=== PATIENT | female | born 1945 | race Caucasian/White ===

== ENCOUNTER 2018-01-28 19:27 | Observation (INO) ==
[2018-01-28 19:49] LABS: Basophils # 0.1 K/mm3 (0-0.2); Basophils % 0.4 % (0.1-2.0); Eosinophils # 0.2 K/mm3 (0.0-0.4); Eosinophils % 2.1 % (0.1-12.0); Hematocrit 40.5 % (37.0-47.0); Hemoglobin 13.5 g/dL (12.2-16.2); Lymphocytes # 4.4 K/mm3 (0.7-4.5); Lymphocytes % 39.7 K/mm3 (10-50); Mean Corpuscular HGB Conc 33.3 g/dL (31.8-35.4); Mean Corpuscular Hemoglobin 28.6 pg (27.0-31.2); Mean Corpuscular Volume 86.1 fl (81-99); Mean Platelet Volume 7.6 fl (7.4-10.4); Monocytes % 8.6 % (1.7-9.3); Neutrophils # 5.4 K/mm3 (1.8-7.8); Neutrophils % 49.1 % (37.0-80.0); Platelet Count 406 K/mm3 (142-424); Red Cell Distribution Width 12.3 % (11.5-17.5)
--- NOTE | 2018-01-28 20:07 | Emergency Department Note ---
ED Disposition Condition on Discharge: Good - Critical Care Critical Care Time: No <Cesar Mary - Last Filed: 01/28/18 20:04> <Go Aquino - Last Filed: 01/28/18 23:15> Clinical Impression: Dizziness, nonspecific Chest pain Qualifiers: Chest pain type: unspecified Qualified Code(s): R07.9 - Chest pain, unspecified Disposition: Admitted As Inpatient Attestation: On 01/28/18, the high probability of a clinically significant, sudden or life threatening deterioration of the following system(s) required my full and direct attention, intervention and personal management. The time I documented below is in addition to time spent performing reported procedures but includes the following listed in this critical care notation. Medical Decision Making - Medical Records Medical records reviewed: Yes: I reviewed the patient's medical records. - Cj Inquiry Pt receiving controlled substance: No Cj was queried for this patient: No - Lab Data Result diagrams: 01/28/18 19:30 - ECG Data Tracing #1 Normal Sinus Rhythm: Yes <Cesar Mary - Last Filed: 01/28/18 20:04> - Lab Data Lab results reviewed: Yes: I reviewed the patient's lab results. Result diagrams: 01/28/18 19:30 01/28/18 19:30 - Radiology Data #1 Image(s): Chest Image Reviewed: Yes I reviewed the patient's radiology image Preliminary Findings: Normal/NAD - CT Data CT Scan: Head Time Received: 23:[address] Reviewed: Yes: I have viewed the radiologist's interpretation Preliminary Findings: Normal/NAD - Physician Consults Physician Consulted: joelle Reason -: Admission <Go Aquino - Last Filed: 01/28/18 23:15> Vital Signs: 01/28/18 19:28 01/28/18 19:48 01/28/18 20:27 Temperature 97.6 F Temperature Source Oral Oral Pulse Rate [Right Radial] 111 H 110 H 95 H Respiratory Rate 16 20 14 Blood Pressure [Right Arm] 160/90 145/84 151/83 Blood Pressure Mean [Right Arm] 113 104 105 Blood Pressure Source [Right Arm] Automatic Cuff Automatic Cuff Automatic Cuff Blood Pressure Position [Right Arm] Supine Sitting Supine 02 Sat by Pulse Oximetry 98 100 100 Oxygen Delivery Method Room Air Nasal Cannula Room Air Oxygen Flow Rate (LPM) 2 - Lab Data Lab Results 01/28/18 19:30: WBC 11.0 H, RBC 4.70, Hgb 13.5, Hct 40.5, MCV 86.1, MCH 28.6, MCHC 33.3, RDW 12.3, Plt Count 406, MPV 7.6, Neut % (Auto) 49.1, Lymph % (Auto) 39.7, Yell % (Auto) 8.6, Eos % (Auto) 2.1, Baso % (Auto) 0.4, Neut # (Auto) 5.4 , Lymph # (Auto) 4.4, Yell # (Auto) 1.0, Eos # (Auto) 0.2, Baso # (Auto) 0.1 01/28/18 19:30: Sodium 132 L, Potassium 3.2 L, Chloride 99, Carbon Dioxide 24, Anion Gap 12.2, BUN 21 H, Creatinine 0.91, Estimated Creat Clear 60, Estimated GFR 61, Est GFR ( Amer) 74, Glucose 143 H, Calcium 9.5, Total Bilirubin 0.4, AST 16, ALT 25, Alkaline Phosphatase 103, Total Creatine Kinase 92, CK-MB ( CK-2) 0.5, CK-MB (CK-2) Rel Index 0.5, Troponin I 0.03, Total Protein 7.7, Albumin 4.0, Globulin 3.7 H, Albumin/Globulin Ratio 1.1 01/28/18 21:00: Urine Color Yellow, Urine Appearance Clear, Urine pH 5.5, Ur Specific [place] 1.010, Urine Protein Negative, Urine Glucose (UA) Negative, Urine Ketones Negative, Urine Blood Trace-i, Urine Nitrate Negative, Urine Bilirubin Negative, Urine Urobilinogen 0.2, Ur Leukocyte Esterase Negative, Urine RBC Occasional, Urine WBC 5-10, Ur Squamous Epith Cells 5-10, Urine Bacteria Trace 01/28/18 21:40: Troponin I 0.04 01/28/18 21:40: TSH 1.80, Thyroxine (T4) 9.1 Orders (Tests/Meds): ED MEDICATIONS Generic Name Dose Route Start Last Admin Trade Name Freq PRN Reason Stop Dose Admin Nitroglycerin 0.4 mg 01/28/18 19:32 01/28/18 19:35 Nitrostat 0.4mg Sl Tablet SL 02/27/18 19:31 0.4 mg [id number] PRN Administration Chest Pain Discontinued Medications Generic Name Dose Route Start Last Admin Trade Name Mary Jane PRN Reason Stop Dose Admin Aspirin 243 mg 01/28/18 19:30 01/28/18 19:29 Aspirin 81mg Chewable Tablet PO 01/28/18 19:31 243 mg ONCE ONE Administration Sodium Chloride 1,000 mls @ 999 mls/hr 01/28/18 20:30 01/28/18 20:31 Sod Chlor 0.9% 1000ml Bag IV 01/28/18 21:30 999 mls/hr .Q1H1M MARIA E Administration Ondansetron HCl 4 mg 01/28/18 19:30 01/28/18 19:36 Zofran 4mg/2ml Vial IV 01/28/18 19:31 4 mg ONCE ONE Administration ORDERS Category Date Time Status CT head/brain wo con Stat Cat Scan 01/28/18 20:30 Taken XR chest portable Stat Exams 01/28/18 19:30 Taken ECG Request by /Heather Stat Y 01/28/18 19:30 Ordered - ECG Data Tracing #1 Additional Comments: q wave III (Cesar Mary) Chest Pain HPI - General Mode of Arrival: Ambulatory Source of Information: Patient Limitations: No Limitations Description of Symptoms (Recalled from ER Triage Doc. by RN): Pt reports chest pressure, nausea and dizziness about an hour ago. She states she took an 81mg baby aspirin and a sublingual nitro. - History of Present Illness MD complaint: chest pain indicative of cardiac Onset (ago): hour(s) (2) Duration: now resolved Activity at onset: during rest Pain location: substernal, left chest Severity scale (1-10): 7 Pain radiation: none Relieving factors: nitroglycerin Exacerbating factors: nothing Treatments prior to or on arrival for Cardiac Chest Pain: aspirin - Related Data On Oral Contraceptives: No <Cesar Mary - Last Filed: 01/28/18 20:04> <Go Aquino - Last Filed: 01/28/18 23:15> - General Chief Complaint: Chest Pain Stated Complaint: chest pain Time Seen by Provider: 01/28/18 20:12 - Related Data Home Medications Medication Instructions Recorded Confirmed Aspirin [Aspir 81] 81 mg PO DAILY 01/28/18 01/28/18 Carvedilol [Carvedilol 3.125mg Tab] 3.125 mg PO BID 01/28/18 01/28/18 Clopidogrel Bisulfate [Plavix] 75 mg PO DAILY 01/28/18 01/28/18 Losartan/Hydrochlorothiazide 1 each PO DAILY 01/28/18 01/28/18 [Losartan-Hctz 50-12.5 mg Tab] Omeprazole [Omeprazole 40mg 40 mg PO DAILY 01/28/18 01/28/18 Capsule] Pravastatin Sodium 80 mg PO DAILY 01/28/18 01/28/18 Allergies Allergy/AdvReac Type Severity Reaction Status Date / Time Penicillins [PENICILLINS] Allergy Mild Verified 01/28/18 19:35 promethazine [PROMETHAZINE] Allergy Mild Verified 01/28/18 19:35 pseudoephedrine Allergy Mild Verified 01/28/18 19:35 [From SUDAFED] Sulfa (Sulfonamide Allergy Mild Verified 01/28/18 19:35 Antibiotics) [SULFA (SULFONAMIDE ANTIBIOTICS)] [facility] History I have reviewed the patient's past medical history: Yes Medical History: Reports:: Myocardial Infarction Denies:: Diabetes Mellitus Type 1, Diabetes Mellitus Type 2 - Social History Alcohol Intake: never - Psychiatric History Expresses thoughts of harming self/others: None Suicide Plan Description: No Plan <Cesar Mary - Last Filed: 01/28/18 20:04> ROS Obtained: Yes All systems reviewed & no additional complaints - Cardiovascular Cardiovascular: Reports chest pain - Respiratory Respiratory: Yes dyspnea <Cesar Mary - Last Filed: 01/28/18 20:04> Physical Exam - General General appearance: alert, in no apparent distress - Head Head exam: atraumatic, normocephalic, normal inspection - Eye Eye exam: Present: normal appearance, PERRL, EOMI - ENT ENT exam: Present: normal exam, normal oropharynx, mucous membranes moist, TM's normal bilaterally, normal external ear exam - Neck Neck exam: Present: normal inspection, full ROM, trachea midline. Absent: meningismus, lymphadenopathy - Chest Chest inspection: Present: normal inspection, symmetric chest wall rise. Absent : tenderness - Respiratory Respiratory exam: Present: normal lung sounds bilaterally. Absent: respiratory distress - Cardiovascular Cardiovascular exam: Present: regular rate, normal rhythm. Absent: JVD - Abdominal Exam Abdominal exam: Present: soft, normal bowel sounds. Absent: distention, tenderness, guarding - Extremities Exam Extremities exam: Present: normal inspection, full ROM, normal capillary refill. Absent: calf tenderness - Back Exam Back exam: Present: normal inspection. Absent: tenderness - Neurological Exam Neurological exam: Present: alert, oriented X3 - Psychiatric Psychiatric exam: Present: normal affect, normal mood - Skin Skin exam: Present: warm, dry, intact, normal color - Lymphatic Lymphatic Findings: no adenopathy <Cesar Mary - Last Filed: 01/28/18 20:04>
[2018-01-28 20:16] LABS: Albumin/Globulin Ratio 1.1 (1.1-1.8); Bilirubin,Total 0.4 mg/dL (0.2-1.0); Calcium 9.5 mg/dL (8.5-10.1); Globulin 3.7 gm/dl (1.3-3.2); Potassium 3.2 mmoL/L (3.5-5.1); Total Protein,Serum 7.7 gm/dL (6.4-8.2)
[2018-01-28 20:22] LABS: Anion Gap 12.2 mEq/L (5-15)
[2018-01-28 21:11] LABS: Microscopic, Urine URINE MICROSCOPIC (MICROSCOPIC)
[2018-01-28 21:12] LABS: Appearance,Urine CLEAR (Clear); Bilirubin,Urine Negative (Negative); Blood, Urine TRACE-I (Negative); Color,Urine YELLOW (Yellow); Glucose,Urine (UA) Negative (Negative); Ketones,Urine Negative (Negative); Leukocyte Esterase,Urine Negative (Negative); PH,Urine 5.5 (5.0-8.5); Protein,Urine Negative (Negative); Urobilinogen,Urine 0.2 EU/dl (0.2)
[2018-01-28 21:24] LABS: Bacteria,Urine Trace /lpf; RBC,Urine Occasional #/hpf (0-3)
[2018-01-28 23:06] LABS: T4 (Thyroxine) 9.1 ug/dl (4.7-13.3); Thyroid Stimulating Hormone 1.8 uIU/ml (0.358-3.740)
[2018-01-29 06:45] LABS: Basophils % 0.4 % (0.1-2.0); Eosinophils # 0.1 K/mm3 (0.0-0.4); Eosinophils % 1.8 % (0.1-12.0); Hematocrit 38.8 % (37.0-47.0); Hemoglobin 12.7 g/dL (12.2-16.2); Lymphocytes % 39.1 K/mm3 (10-50); Mean Corpuscular HGB Conc 32.7 g/dL (31.8-35.4); Mean Corpuscular Hemoglobin 28.7 pg (27.0-31.2); Mean Corpuscular Volume 87.6 fl (81-99); Mean Platelet Volume 7.5 fl (7.4-10.4); Monocytes # 0.5 K/mm3 (0.1-1.0); Monocytes % 6.6 % (1.7-9.3); Neutrophils % 52.1 % (37.0-80.0); Platelet Count 326 K/mm3 (142-424); Red Blood Count 4.44 M/mm3 (4.20-5.40); Red Cell Distribution Width 12.3 % (11.5-17.5); White Blood Count 7.7 K/mm3 (4.8-10.8)
[2018-01-29 07:49] LABS: Anion Gap 7.7 mEq/L (5-15); Potassium 3.7 mmoL/L (3.5-5.1)
[2018-01-29 10:03] LABS: Creatine Kinase 78 U/L (26-192)
--- NOTE | 2018-01-29 11:04 | Pharmacy Consult Notes ---
[facility] Pharmacy VTE Monitoring - Patient Demographics Admission date: 01/29/18 Report Date: 01/29/18 Time: 11:04 Allergies/Adverse Reactions: Patient Allergies Penicillins [PENICILLINS] Allergy (Mild, Verified 01/28/18 19:35) promethazine [PROMETHAZINE] Allergy (Mild, Verified 01/28/18 19:35) pseudoephedrine [From SUDAFED] Allergy (Mild, Verified 01/28/18 19:35) Sulfa (Sulfonamide Antibiotics) [SULFA (SULFONAMIDE ANTIBIOTICS)] Allergy (Mild , Verified 01/28/18 19:35) Height: 1.68 m Weight: 79.946 kg Patient Problems: Current Active Problems Chest pain (Acute) Dizziness, nonspecific (Acute) - VTE Risk Labs: VTE Related Lab Results Hgb 12.7 g/dL (12.2-16.2) 01/29/18 06:10 Hct 38.8 % (37.0-47.0) 01/29/18 06:10 Plt Count 326 K/mm3 (142-424) 01/29/18 06:10 BUN 14 mg/dL (7-18) D 01/29/18 06:10 Creatinine 0.71 mg/dL (0.55-1.02) D 01/29/18 06:10 Estimated Creat Clear 66 mL/min (0-300) 01/29/18 06:10 Was VTE Risk Assessment Performed: No VTE Score: 5 VTE Risk Level: Low Risk - VTE Diagnosis Confirmed Comment: BRIANA ANGELA ORDERED
[2018-01-29 11:55] VITALS: BP 143/67
--- NOTE | 2018-01-29 14:06 | H&P/Discharge Summary ---
General - General Admission date: 01/29/18 Discharge date: 01/29/18 *Admission Date: 01/29/18 *Chief complaint: Chest pain *History of present illness: 72 year old female patient of Dr. Davis Foote in [place], [place] presented to [facility] ER last night complaining of chest pain associated with nausea, palpitations and dizziness. She had two separate episodes and the chest pain happened with the second one. She took a NTG and did not get much relief so she came to the ER for further evaluation. She has a history of CAD, her last hear cath was in 2015 and she reportedly had non flow limiting disease at that time. She has been taking medical management ever since. Patient states she has recently been undergoing testing for palpitations and occasional weak spells. She just wore a continuous quality assurance monitor for 30 days, which was reportedly normal. She was also recently started on CoQ10 for myalgias. She also recently saw Dr. Roel Lewis, supervisor particleboard, in [place] and has a f/u visit scheduled with him soon. [facility] History Medical History: Reports:: Cardiomyopathy, Hyperlipidemia, Hypertension, Myocardial Infarction Denies:: Cancer, Diabetes Mellitus Type 1, Diabetes Mellitus Type 2, MRSA Other Medical History: Reports: Arthritis, Cataracts Laterality Cases: Right: Lumpectomy Other Surgeries: Yes: Hysterectomy-Total Amputation: No Fractures: No - *Social History Educational Level: Attended College Smoking Status: Never smoker Alcohol Intake: never Occupational Status: retired Housing: house Household Members: spouse - Psychiatric History Expresses thoughts of harming self/others: None Suicide Plan Description: No Plan *Family Hx:: Cancer, Coronary Artery Disease, Diabetes, Heart Attack, Hyperlipidemia, Hypertension, Stroke, Thyroid Disorder Review of Systems - Constitutional Denies chills - Eyes Denies blurry vision - ENT Denies headache(s), Denies neck pain - *Respiratory Denies cough - *Gastrointestinal Denies abdominal pain - *Genitourinary Denies difficulty urinating - *Musculoskeletal Denies joint pain - Integumentary/Breasts Denies rash - *Neurologic Reports dizziness Exam Vital signs and Labs for Last 24 Hours: Temp Pulse Resp BP Pulse Ox 97.6 F 61 18 143/67 100 01/29/18 11:54 01/29/18 11:54 01/29/18 11:54 01/29/18 11:54 01/29/18 11:54 Laboratory Results - last 24 hr 01/29/18 06:10: Troponin I 0.08 H 01/29/18 06:10: WBC 7.7 D, RBC 4.44, Hgb 12.7, Hct 38.8, MCV 87.6, MCH 28.7, MCHC 32.7, RDW 12.3, Plt Count 326, MPV 7.5, Neut % (Auto) 52.1, Lymph % (Auto) 39.1, [place] % (Auto) 6.6, Eos % (Auto) 1.8, Baso % (Auto) 0.4, Neut # (Auto) 4.0 , Lymph # (Auto) 3.0, [place] # (Auto) 0.5, Eos # (Auto) 0.1, Baso # (Auto) 0.0 01/29/18 06:10: Sodium 141, Potassium 3.7, Chloride 107, Carbon Dioxide 30 D, Anion Gap 7.7, BUN 14 D, Creatinine 0.71 D, Estimated Creat Clear 66, Estimated GFR 81, Est GFR ( Amer) 98 D, Glucose 106 D 01/29/18 09:35: Total Creatine Kinase 78, CK-MB (CK-2) < 0.5, CK-MB (CK-2) Rel Index 0.6, Troponin I 0.10 H 01/29/18 12:55: Troponin I 0.09 H I & O for Last 24 hours: Intake & Output 01/27/18 01/28/18 01/29/18 01/30/18 11:59 11:59 11:59 11:59 Intake Total 360 / 360 Balance 360 / 360 Weight 176 lb 4 oz - Constitutional no acute distress - *Routine HEENT Exam Head: Present: normocephalic, atraumatic ENT: Present: mucous membranes moist - *Routine Neck Exam Present: supple - *Routine Respiratory Exam Present: CTA bilaterally - *Routine Cardiovascular Exam Present: RRR - *Routine Abdominal Exam Present: soft, normoactive bowel sounds. Absent: tenderness - *Routine Extremities Exam Absent: cyanosis, clubbing, edema - *Routine Skin Exam Present: intact. Absent: rash Hospital Course Hospital Course: Patient was admitted with chest pain for serial cardiac enzymes and cardiac monitoring. She was given some IVF due to pre renal azotemia and hypokalemia. Her troponin peaked at 0.10, she was able to ambulate without difficulty, telemetry monitoring was normal, she had no dizziness or chest pain. She was tolerating a regular diet and wanted to go home. She will call with any new symptoms and will keep f/u appointment with Dr. Foote on February 08. She will stop CoQ10 as this may also be causing her dizziness. Results Labs on day of discharge: Labs from last 24 hours 01/29/18 01/29/18 01/29/18 12:55 09:35 06:10 WBC RBC Hgb Hct MCV MCH MCHC RDW Plt Count MPV Neut % (Auto) Lymph % (Auto) [place] % (Auto) Eos % (Auto) Baso % (Auto) Neut # (Auto) Lymph # (Auto) [place] # (Auto) Eos # (Auto) Baso # (Auto) Sodium 141 Potassium 3.7 Chloride 107 Carbon Dioxide 30 D Anion Gap 7.7 BUN 14 D Creatinine 0.71 D Estimated Creat Clear 66 Estimated GFR 81 Est GFR ( Amer) 98 D Glucose 106 D Total Creatine Kinase 78 CK-MB (CK-2) < 0.5 CK-MB (CK-2) Rel Index 0.6 Troponin I 0.09 H 0.10 H 01/29/18 01/29/18 06:10 06:10 WBC 7.7 D RBC 4.44 Hgb 12.7 Hct 38.8 MCV 87.6 MCH 28.7 MCHC 32.7 RDW 12.3 Plt Count 326 MPV 7.5 Neut % (Auto) 52.1 Lymph % (Auto) 39.1 [place] % (Auto) 6.6 Eos % (Auto) 1.8 Baso % (Auto) 0.4 Neut # (Auto) 4.0 Lymph # (Auto) 3.0 [place] # (Auto) 0.5 Eos # (Auto) 0.1 Baso # (Auto) 0.0 Sodium Potassium Chloride Carbon Dioxide Anion Gap BUN Creatinine Estimated Creat Clear Estimated GFR Est GFR ( Amer) Glucose Total Creatine Kinase CK-MB (CK-2) CK-MB (CK-2) Rel Index Troponin I 0.08 H DS: Diagnosis - Discharge Diagnosis (1) Prerenal azotemia Status: Acute (2) Hypokalemia Status: Acute (3) Hyponatremia Status: Acute (4) Chest pain Status: Acute (5) Dizziness, nonspecific Status: Acute Discharge Medications Discharge Medications: Home Medications Medication Instructions Recorded Confirmed Type Aspirin [Aspir 81] 81 mg PO DAILY 01/28/18 01/29/18 History Carvedilol [Carvedilol 3.125mg Tab] 3.125 mg PO BID 01/28/18 01/29/18 History Clopidogrel Bisulfate [Plavix] 75 mg PO DAILY 01/28/18 01/29/18 History Losartan/Hydrochlorothiazide 1 each PO DAILY 01/28/18 01/29/18 History [Losartan-Hctz 50-12.5 mg Tab] Omeprazole [Omeprazole 40mg 40 mg PO DAILY 01/28/18 01/29/18 History Capsule] Pravastatin Sodium 40 mg PO DAILY 01/28/18 01/29/18 History ALPRAZolam [Alprazolam 0.25mg 0.25 mg PO DAILYP PRN 01/29/18 01/29/18 History Tab] Nitroglycerin [Nitrostat 0.4mg SL 0.4 mg SL NEEDED PRN 01/29/18 01/29/18 History Tablet] Ubidecarenone/Vitamin E Mixed 1 each PO DAILY 01/29/18 01/29/18 History [[id number] E 200 mg-20 Unit Sfg] Zolpidem Tartrate [Ambien] 5 mg PO HS PRN 01/29/18 01/29/18 History Disposition Disposition: Home, Self-Care
== END 2018-01-29 15:55 | disposition home or self-care (01) ==
LOC: ER 19:27 → 2ND 19:27
PROVIDERS: ADMIT Family Medicine; ATTEND Family Medicine

== ENCOUNTER 2019-09-05 09:00 | Outpatient (RCR) | payer MEDICARE, SELFPAY | END 2019-09-05 09:05 | disposition home or self-care (01) | LOC: OT 09:00 | PROVIDERS: PCP Family Medicine; Visit Provider Family Medicine | DX: S46.211A Strain of muscle, fascia and tendon of other parts of biceps, right arm, initial encounter (principal) | CPT/HCPCS: 97014; 97110; 97165; G0283 ==

== ENCOUNTER → 2021-01-24 09:32 | Outpatient (CLI) | payer MEDICARE, SELFPAY ==
--- NOTE | 2021-01-24 09:38 | XR_ITS ---
PROCEDURE: XR SHOULDER LT MIN 2V CLINICAL INDICATION: LT SHOULDER PAIN COMPARISON: No exams were available for comparison FINDINGS: No fracture or dislocation. No lytic or blastic change. There is normal mineralization. The joint spaces are well-preserved. No significant degenerative/arthritic changes. No erosive changes evident. Other findings:There is a thin transverse linear density inferior to the glenoid on the scapula possibly due to some overlying spurring. IMPRESSION: No acute findings. Dictated by: Ajay Johnson MD 01/24/2021 12:22 Ajay Johnson MD in [place] 01/24/2021 12:22
== END ==
PROVIDERS: PCP Family Medicine; Visit Provider Family Medicine
DX: M25.512 Pain in left shoulder (principal)
CPT/HCPCS: 73030

== ENCOUNTER 2021-06-09 10:00 | Outpatient (RCR) | payer MEDICARE, SELFPAY | END 2021-06-09 10:05 | disposition home or self-care (01) | LOC: OT 10:00 | PROVIDERS: PCP Family Medicine; Visit Provider Orthopaedic Surgery | DX: M75.122 Complete rotator cuff tear or rupture of left shoulder, not specified as traumatic (principal); M75.42 Impingement syndrome of left shoulder; M75.52 Bursitis of left shoulder | CPT/HCPCS: 97010; 97014; 97035; 97110; 97140; 97164; 97166; 97530; G0283 ==

== ENCOUNTER → 2022-03-17 12:51 | Outpatient (POV) | payer MEDICARE, SELFPAY | PROVIDERS: Visit Provider Dermatology | DX: Z00.00 Encounter for general adult medical examination without abnormal findings (principal) ==

== ENCOUNTER 2022-05-05 10:21 | Emergency (ER) | payer MEDICARE, SELFPAY ==
[2022-05-05 10:40] VITALS: BP 128/78; PULSE 88; RESP 19; TEMP 36.7; O2SAT 96; BMI 27.7
--- NOTE | 2022-05-05 10:58 | HMH.EDUTC ---
[facility] Disposition Clinical Impression: Sinusitis Qualifiers: Sinusitis location: unspecified location Chronicity: unspecified Qualified Code(s): J32.9 - Chronic sinusitis, unspecified Disposition: Home, Self-Care Condition on Discharge: Good Instructions: Sinusitis, DI for Sinusitis, DI for COVID-19 (Suspected or Confirmed ), Preventing the Spread of Coronavirus Discharge Instructions Additional Instructions: *Monitor Temp, Over the counter Motrin or Tylenol as directed/as needed Tylenol every 4 hours and Motrin every 6 hours (as long as your family doctor has told you that you can take it) for fever or pain. and straight to ER if unable to lower temp less than 101.0 after medication given *Warm salt water gargles may help to soothe the throat *Throat Lozenges *Warm fluids like tea with honey may help to soothe the throat *Sleep elevated *Humidifier/Vaporizer Take medication as prescribed Follow up IMMEDIATELY for new or worsening symptoms or no Noticeable improvement over the next 48-72 hours. 911 for difficulty breathing or swallowing You were tested for today for COVID19 your test result should be back in the next 24-48 hours, you may check your results on the [facility] Make sure to take your Vitamins Vit. C Vit D and Zinc if you can take them Prescriptions: methylPREDNISolone [Medrol 4mg tab] 4 mg PO DIRECTED #21 tab Transmission Status: Pending to [facility] Azithromycin [Z-Kennedy 250mg Tab] 250 mg PO DIRECTED #6 tab Transmission Status: Pending to [facility] Referrals: Davis Foote [Primary Care Provider] - As needed Time of Disposition: 11:12 Medical Decision Making - Cj Inquiry Pt receiving controlled substance: No Cj was queried for this patient: No Vital Signs: 05/05/22 10:40 Temperature 98.1 F Temperature Source Oral Pulse Rate [Right Brachial] 88 Respiratory Rate 19 Blood Pressure [Right Arm] 128/78 Blood Pressure Mean [Right Arm] 94 Blood Pressure Source [Right Arm] Automatic Cuff Blood Pressure Position [Right Arm] Sitting 02 Sat by Pulse Oximetry 96 Oxygen Delivery Method Room Air Orders (Tests/Meds): ORDERS Category Date Time Status Covid-19 Nasal PCR ([facility]) Routine Lab 05/05/22 10:45 Received Medical Decision Narrative: Patient states that she has taken prednisone and azithromycin in the past without complications or reactions [facility] HPI - General Stated complaint: cough, congestion, sore throat, SOA Time Seen by Provider: 05/05/22 10:58 Mode of Arrival: Ambulatory Source of Information: Patient Limitations: No Limitations Description of Symptoms (Recalled from Triage Doc. by RN): PATIENT C/O COUGH, SOA, HEADACHE, AND LEG ACHES. REQUESTING COVID TEST HEENT Symptoms (Recalled from RN notes): Yes Resp Symptoms (Recalled from RN notes): Yes Skin Symptoms (Recalled from RN notes): No MS Symptoms (Recalled from RN notes): No Functional Status (Recalled from RN notes): WNL - History of Present Illness Provider Complaint: Patient states that she has been having scratchy throat, sinus congestion and pressure with feeling like it is running down the back of her throat State that feels like it is trying to move into her chest State that she has Asthma and last night she felt a little SOA so she used her inhaler and it did help States that she took an at home COVID test and it was negative but wanted to get examined and tested - Related Data Home Medications Medication Instructions Recorded Confirmed Aspirin [Aspir 81] 81 mg PO DAILY 01/28/18 01/29/18 Clopidogrel Bisulfate [Clopidogrel 75 mg PO DAILY 01/28/18 01/29/18 75mg Tab] Losartan/Hydrochlorothiazide 1 each PO DAILY 01/28/18 01/29/18 [Losartan-Hctz 50-12.5 mg Tab] Omeprazole [Omeprazole 40mg 40 mg PO DAILY 01/28/18 01/29/18 Capsule] Pravastatin Sodium 40 mg PO DAILY 01/28/18 01/29/18 carvediloL [Carvedilol 3.125mg Tab] 3.125 mg PO BID
[2022-05-05 11:17] VITALS: BP 128/78; PULSE 88; RESP 19; TEMP 36.7; O2SAT 96
== END 2022-05-05 11:21 | disposition home or self-care (01) ==
PROVIDERS: Emergency Provider Nurse Practitioner; PCP Family Medicine
DX: J32.9 Chronic sinusitis, unspecified (principal); U07.1 COVID-19; R05.9 Cough, unspecified; R09.89 Other specified symptoms and signs involving the circulatory and respiratory systems; J02.9 Acute pharyngitis, unspecified; R06.02 Shortness of breath
CPT/HCPCS: 99212; C9803; G0463; U0003; U0005

== ENCOUNTER 2022-05-07 10:08 | Emergency (ER) | payer MEDICARE, SELFPAY ==
[2022-05-07 10:08] VITALS: BP 146/79; PULSE 75; RESP 20; TEMP 36.4; O2SAT 100; BMI 278.0
--- NOTE | 2022-05-07 10:32 | XR_ITS ---
FINAL REPORT CLINICAL HISTORY: bharath, covid + COMPARISON: January 28, 2018 FINDINGS: The heart size is normal. A loop recorder device is present. The mediastinum is normal. There is no focal infiltrate or edema. There are no pleural effusions. There is no pneumothorax. There is a chronic calcification adjacent to the right humeral head that may represent calcific tendinitis. IMPRESSION: No acute cardiopulmonary process Reviewed, Interpreted and Dictated by Jung Cordova III, MD Transcribed by Lenny Parks Authenticated and [facility]
--- NOTE | 2022-05-07 10:42 | PC.NURSE ---
rad at [facility] for portable xray
--- NOTE | 2022-05-07 11:07 | HMH.EDGENADL ---
ED Disposition Clinical Impression: COVID-19 virus infection Disposition: Home, Self-Care Condition on Discharge: Good Instructions: DI for COVID-19 (Suspected or Confirmed ) Additional Instructions: Paxlovid as prescribed. Tessalon as needed for cough. Zofran as needed for nausea or vomiting. Rest, drink plenty of fluids. Tylenol or Ibuprofen for fever and/or aches and pains. Monitor your symptoms. IF YOU HAVE AN EMERGENCY WARNING SIGN (INCLUDING TROUBLE BREATHING), SEEK EMERGENCY MEDICAL CARE IMMEDIATELY. COVID-19 Isolation: People with COVID-19 should isolate for 5 days. Then if they are asymptomatic (no symptoms) or their symptoms are resolving (without fever for 24 hours), follow that by 5 days of wearing a mask when around others to minimize the risk of infecting people you encounter. If you test positive for COVID-19 and never develop symptoms, day 0 is the day of your positive viral test (based on the date you were tested) and day 1 is the first full day after your positive test. If you develop symptoms after testing positive, your 5-day isolation period must start over. Day 0 is your first day of symptoms. Day 1 is the first full day after your symptoms developed. What to do: Stay in a separate room from other household members, if possible. Use a separate bathroom, if possible. Avoid contact with other members of the household and pets. Don?t share personal household items, like cups, towels, and utensils. Wear a mask when around other people if able. Prescriptions: Benzonatate [Benzonatate 100mg cap] 100 mg PO TIDP PRN #15 cap PRN Reason: Cough Transmission Status: Pending to [facility] Nirmatrelvir/Ritonavir [Paxlovid 150-100 mg Pack (Eua)] 1 each PO BID #1 tab Transmission Status: Pending to [facility] Ondansetron [Zofran 4mg ODT] 4 mg PO TIDP PRN #10 tab PRN Reason: Nausea And Vomiting Transmission Status: Pending to [facility] Referrals: Davis Foote [Primary Care Provider] - - Critical Care Critical Care Time: No Attestation: On 05/07/22, the high probability of a clinically significant, sudden or life threatening deterioration of the following system(s) required my full and direct attention, intervention and personal management. The time I documented below is in addition to time spent performing reported procedures but includes the following listed in this critical care notation. Medical Decision Making - Cj Inquiry Pt receiving controlled substance: No Vital Signs: 05/07/22 10:08 05/07/22 11:34 05/07/22 12:00 Temperature 97.6 F Temperature Source Oral Pulse Rate 58 L 55 L Pulse Rate [Left Radial] 75 Respiratory Rate 20 18 16 Blood Pressure 132/63 159/68 H Blood Pressure [Right Arm] 146/79 H Blood Pressure Mean 101 Blood Pressure Mean [Right Arm] 101 Blood Pressure Source [Right Arm] Automatic Cuff Blood Pressure Position [Right Arm] Sitting 02 Sat by Pulse Oximetry 100 98 98 Oxygen Delivery Method Room Air 05/07/22 12:30 05/07/22 13:00 Temperature Temperature Source Pulse Rate 58 L 61 Pulse Rate [Left Radial] Respiratory Rate 17 17 Blood Pressure 154/62 H 159/66 H Blood Pressure [Right Arm] Blood Pressure Mean Blood Pressure Mean [Right Arm] Blood Pressure Source [Right Arm] Blood Pressure Position [Right Arm] 02 Sat by Pulse Oximetry 98 98 Oxygen Delivery Method - Lab Data Lab Results 05/07/22 11:25: WBC 13.5 H, RBC 4.96, Hgb 14.7, Hct 44.4, MCV 89.5, MCH 29.7, MCHC 33.1, RDW 13.4, Plt Count 463 H, MPV 7.9, Neut % (Auto) 74.3, Lymph % (Auto) 13.3, [place] % (Auto) 10.9 H, Eos % (Auto) 0.3, Baso % (Auto) 1.2, Neut # (Auto) 10.0 H, Lymph # (Auto) 1.8, [place] # (Auto) 1.5 H, Eos # (Auto) 0.0, Baso # (Auto) 0.2 05/07/22 11:25: Sodium 135 L, Potassium 3.8, Chloride 97 L, Carbon Dioxide 30, Anion Gap 11.8, BUN 15, Creatinine 0.80, Estimated Creat Clear 46, Es
--- NOTE | 2022-05-07 11:28 | ECG_ITS ---
APPROVED REPORT Exam: Resting ECG HR:59 bpm ECG Measurements Heart Rate 59 AXES HI 149 P 33 QRSd 88 QRS -4 QT 400 T 17 QTc 400 Conclusion SINUS BRADYCARDIA MINIMAL VOLTAGE CRITERIA FOR LVH, Poor R wave progression ABNORMAL ECG UNCONFIRMED REPORT Electronically signed by : Channing Christian MD 05/07/2022 17:38:45
[2022-05-07 11:34] VITALS: BP 132/63; PULSE 58; RESP 18; O2SAT 98
[2022-05-07 11:35] LABS: Basophils # 0.2 K/mm3 (0-0.2); Basophils % 1.2 % (0.1-2.0); Eosinophils % 0.3 % (0.1-12.0); Hematocrit 44.4 % (37.0-47.0); Hemoglobin 14.7 g/dL (12.2-16.2); Lymphocytes # 1.8 K/mm3 (0.7-4.5); Lymphocytes % 13.3 % (10-50); Mean Corpuscular HGB Conc 33.1 g/dL (31.8-35.4); Mean Corpuscular Hemoglobin 29.7 pg (27.0-31.2); Mean Corpuscular Volume 89.5 fl (81-99); Mean Platelet Volume 7.9 fl (7.4-10.4); Monocytes # 1.5 K/mm3 (0.1-1.0); Monocytes % 10.9 % (1.7-9.3); Neutrophils % 74.3 % (37.0-80.0); Platelet Count 463 K/mm3 (142-424); Red Blood Count 4.96 M/mm3 (4.20-5.40); Red Cell Distribution Width 13.4 % (11.5-17.5); White Blood Count 13.5 K/mm3 (4.8-10.8)
[2022-05-07 11:37] LABS: Chloride 97 mmol/L (98-107); Potassium 3.8 mmoL/L (3.5-5.1); Sodium 135 mmol/L (136-145)
[2022-05-07 11:39] LABS: Alanine Aminotransferase 29 U/L (12-78); Aspartate Amino Transferase 28 U/L (14-36); Blood Urea Nitrogen 15 mg/dl (7-17); Creatinine Clearance Estimated 46 mL/min (50-200); Estimated Glomerular Filt Rate 70 ml/min (>60); GFR (African American) 85 ML/MIN (>60)
[2022-05-07 11:40] LABS: Albumin Level 4.6 g/dl (3.5-5.0); Albumin/Globulin Ratio 1.4 (1.1-1.8); Alkaline Phosphatase 89 U/L (38-126); Anion Gap 11.8 mEq/L (5-15); Bilirubin,Total 0.7 mg/dl (0.2-1.3); Calcium 10.3 mg/dl (8.4-10.2); Carbon Dioxide 30 mmol/L (22.0-30.0); Globulin 3.3 g/dL (1.3-3.2); Glucose 119 mg/dl (74-100); Total Protein,Serum 7.9 g/dl (6.3-8.2)
[2022-05-07 11:59] LABS: Troponin I < 0.01 ng/ml (0.00-0.034)
[2022-05-07 12:00] VITALS: BP 159/68; PULSE 55; RESP 16; O2SAT 98
[2022-05-07 12:30] VITALS: BP 154/62; PULSE 58; RESP 17; O2SAT 98
[2022-05-07 13:00] VITALS: BP 159/66; PULSE 61; RESP 17; O2SAT 98
[2022-05-07 14:29] VITALS: BP 142/70; PULSE 62; RESP 18; TEMP 36.4; O2SAT 99
== END 2022-05-07 14:34 | disposition home or self-care (01) ==
PROVIDERS: Emergency Provider Emergency Medicine; PCP Family Medicine
DX: U07.1 COVID-19 (principal); R07.9 Chest pain, unspecified; M54.9 Dorsalgia, unspecified; Z88.0 Allergy status to penicillin; Z88.2 Allergy status to sulfonamides; Z88.8 Allergy status to other drugs, medicaments and biological substances; I42.9 Cardiomyopathy, unspecified; I11.0 Hypertensive heart disease with heart failure; I50.9 Heart failure, unspecified; I25.2 Old myocardial infarction; E78.5 Hyperlipidemia, unspecified; M19.90 Unspecified osteoarthritis, unspecified site
CPT/HCPCS: 71045; 80053; 84484; 85025; 93005; 96360; 99284

== ENCOUNTER → 2023-01-13 10:31 | Outpatient (CLI) | payer MEDICARE, SELFPAY ==
--- NOTE | 2023-01-13 10:35 | XR_ITS ---
FINAL REPORT CLINICAL HISTORY: knee pain FINDINGS: Two views of the left knee were obtained. There is no evidence of fracture or dislocation. The bony alignment is normal. There are mild degenerative changes. There is no evidence of joint effusion. No localized soft tissue abnormality is seen. Meniscal calcifications are noted. IMPRESSION: Mild degenerative changes with no acute abnormality identified. Reviewed, Interpreted and Dictated by Jung Cordova III, MD Transcribed by Sanjuana Ocasio Authenticated and [facility]
== END ==
PROVIDERS: PCP Family Medicine; Visit Provider Family Medicine
DX: M25.562 Pain in left knee (principal)
CPT/HCPCS: 73560

== ENCOUNTER 2023-04-05 08:00 | Outpatient (RCR) | payer MEDICARE, SELFPAY ==
--- NOTE | 2023-02-15 09:27 | HMH.PTOPEV ---
PT Outpatient Evaluation Rehab PT Outpatient Evaluation Start: 02/15/23 08:24 Freq: Status: Active Protocol: Document 02/15/23 08:24 DORIS (Rec: 02/15/23 09:27 DORIS [id number]) E-signed By Norberto Carmona, PT Outpatient Therapy Subjective History Subjective History Pt reports slipping out of truck and landing on left foot abduptly with 'jamming' moment through LLE upon impact . Pt reports immediate onset left knee pain (injury on ) and swelling following incident, however, reports improvement of s/s after left knee injection ~3 weeks ago. Pt reports intermittent left knee buckling, and pain since injection, 'but better overall '. PMH: chronic Right knee pain Chief Complaint Pain,Stiff,Swelling,Gives out/ Unstable Symptom Type Ache,Sharp,Dull,Burning Symptoms Relieved By Rest/Positioning,Ice, Prescription Meds,Elevation Symptoms Aggravated By Standing,Walking Prior Functional Limitations Stairs Current Functional Limitations Standing,Walking,Stairs Symptom Description Constant but Variable Level of pain today (0-10) 3 Pain scale - at its best (0-10) 2 Pain scale - at its worst (0-10) 6 Hip/Knee Eval Gait Observation General Gait Pattern Observation Antalgic Gait Palpation Tenderness left Knee Palpation Finding Tenderness Knee Palpation Overall Comment 3/4 medial and lateral jt line MMT right Hip Flexion Strength Grade 4- Good- Hip Abduction Strength Grade 4 Good Hip Adduction Strength Grade 4 Good Hip Extension Strength Grade 4 Good Hip External Rotation Strength Grade 4 Good Hip Internal Rotation Strength Grade 4 Good Knee Extension Strength Grade 4 Good Knee Flexion Strength Grade 4 Good left Hip Flexion Strength Grade 4- Good- Hip Abduction Strength Grade 4- Good- Hip Adduction Strength Grade 4- Good- Hip Extension Strength Grade 4- Good- Hip External Rotation Strength Grade 4 Good Hip Internal Rotation Strength Grade 4- Good- Knee Extension Strength Grade 3+ Fair+ Knee Flexion Strength Grade 4- Good- ROM right Knee Flexion Active Range of Motion ( 0-135 degrees) left Knee Flexion Active Range of Motion ( 0-125 degrees) Knee ROM Limitations Soft
== END 2023-04-05 08:05 | disposition home or self-care (01) ==
LOC: PT 08:00
PROVIDERS: PCP Family Medicine; Visit Provider Orthopaedic Surgery
DX: M25.562 Pain in left knee (principal)
CPT/HCPCS: 97010; 97014; 97110; 97163; 97164; 97530; G0283

== ENCOUNTER → 2023-08-09 14:00 | Outpatient (CLI) | payer MEDICARE, SELFPAY | PROVIDERS: PCP Nurse Practitioner Family; Visit Provider Nurse Practitioner Family | DX: R05.9 Cough, unspecified (principal); U07.1 COVID-19 | CPT/HCPCS: 87635 ==

== ENCOUNTER 2024-03-16 08:58 | Outpatient (CLI) | payer MEDICARE, SELFPAY ==
[2024-03-15 16:36] LABS: Basophils # 0.1 K/mm3 (0-0.2); Basophils % 1.4 % (0.1-2.0); Eosinophils # 0.3 K/mm3 (0.0-0.4); Eosinophils % 4.6 % (0.1-12.0); Hematocrit 41.3 % (37.0-47.0); Hemoglobin 13.5 g/dL (12.2-16.2); Lymphocytes # 2.5 K/mm3 (0.7-4.5); Mean Corpuscular HGB Conc 32.7 g/dL (31.8-35.4); Mean Corpuscular Hemoglobin 30.2 pg (27.0-31.2); Mean Corpuscular Volume 92.6 fl (81-99); Mean Platelet Volume 8.5 fl (7.4-10.4); Monocytes # 0.5 K/mm3 (0.1-1.0); Monocytes % 8.1 % (1.7-9.3); Neutrophils # 2.9 K/mm3 (1.8-7.8); Neutrophils % 46.8 % (37.0-80.0); Platelet Count 398 K/mm3 (142-424); Red Blood Count 4.46 M/mm3 (4.20-5.40); Red Cell Distribution Width 13.8 % (11.5-17.5); White Blood Count 6.3 K/mm3 (4.8-10.8)
[2024-03-15 16:54] LABS: Alanine Aminotransferase 23 U/L (12-78); Albumin Level 4.2 g/dl (3.5-5.0); Albumin/Globulin Ratio 1.6 (1.1-1.8); Alkaline Phosphatase 78 U/L (38-126); Anion Gap 14.2 mEq/L (5-15); Aspartate Amino Transferase 29 U/L (14-36); Bilirubin,Total 0.8 mg/dl (0.2-1.3); Blood Urea Nitrogen 17 mg/dl (7-17); Calcium 10.2 mg/dl (8.4-10.2); Carbon Dioxide 29 mmol/L (22.0-30.0); Chloride 99 mmol/L (98-107); Cholesterol 218 mg/dl (140-200); Estimated Glomerular Filt Rate 81 ml/min (>60); GFR (African American) 98 ML/MIN (>60); Globulin 2.6 g/dL (1.3-3.2); Glucose 100 mg/dl (74-100); HDL Cholesterol 54 mg/dl (40-60); Potassium 4.2 mmoL/L (3.5-5.1); Sodium 138 mmol/L (136-145); Total Protein,Serum 6.8 g/dl (6.3-8.2); Triglycerides 146 mg/dl (30-150); VLDL Cholesterol 29 mg/dL (0-40)
[2024-03-15 17:05] LABS: Direct LDL Cholesterol 116.53 mg/dL (100-129)
[2024-03-15 17:25] LABS: Thyroid Stimulating Hormone 1.18 uIU/mL (0.465-4.68)
[2024-03-15 18:18] LABS: Hemoglobin A1C 5.5 % (4.0-6.0)
== END 2024-03-16 23:59 | disposition home or self-care (01) ==
LOC: LAB.DROPOF 09:03
PROVIDERS: PCP Family Medicine; Visit Provider Family Medicine
DX: I10 Essential (primary) hypertension (principal); E78.5 Hyperlipidemia, unspecified; R73.09 Other abnormal glucose; Z87.891 Personal history of nicotine dependence
CPT/HCPCS: 80053; 80061; 83036; 84443; 85025

== ENCOUNTER 2024-06-08 09:26 | Outpatient (CLI) | payer MEDICARE, SELFPAY ==
[2024-06-08 17:01] LABS: Basophils # 0.1 K/mm3 (0-0.2); Basophils % 1.1 % (0.1-2.0); Eosinophils # 0.2 K/mm3 (0.0-0.4); Eosinophils % 3.8 % (0.1-12.0); Hematocrit 40.6 % (37.0-47.0); Hemoglobin 13.6 g/dL (12.2-16.2); Lymphocytes # 2.3 K/mm3 (0.7-4.5); Lymphocytes % 39.8 % (10-50); Mean Corpuscular HGB Conc 33.5 g/dL (31.8-35.4); Mean Corpuscular Hemoglobin 30.4 pg (27.0-31.2); Mean Corpuscular Volume 90.8 fl (81-99); Monocytes # 0.6 K/mm3 (0.1-1.0); Monocytes % 10.6 % (1.7-9.3); Neutrophils # 2.6 K/mm3 (1.8-7.8); Neutrophils % 44.8 % (37.0-80.0); Platelet Count 398 K/mm3 (142-424); Red Blood Count 4.47 M/mm3 (4.20-5.40); Red Cell Distribution Width 13.9 % (11.5-17.5); White Blood Count 5.8 K/mm3 (4.8-10.8)
[2024-06-08 17:33] LABS: Alanine Aminotransferase 21 U/L (12-78); Albumin/Globulin Ratio 1.5 (1.1-1.8); Alkaline Phosphatase 76 U/L (38-126); Anion Gap 10.8 mEq/L (5-15); Aspartate Amino Transferase 26 U/L (14-36); Bilirubin,Total 0.7 mg/dl (0.2-1.3); Blood Urea Nitrogen 17 mg/dl (7-17); Calcium 9.9 mg/dl (8.4-10.2); Carbon Dioxide 29 mmol/L (22.0-30.0); Chloride 102 mmol/L (98-107); Chol/HDL Ratio 4.1 (1-3.5); Cholesterol 216 mg/dl (140-200); Estimated Glomerular Filt Rate 81 ml/min (>60); GFR (African American) 98 ML/MIN (>60); Globulin 2.7 g/dL (1.3-3.2); Glucose 107 mg/dl (74-100); HDL Cholesterol 53 mg/dl (40-60); Potassium 4.8 mmoL/L (3.5-5.1); Sodium 137 mmol/L (136-145); Total Protein,Serum 6.7 g/dl (6.3-8.2); Triglycerides 139 mg/dl (30-150); VLDL Cholesterol 28 mg/dL (0-40)
[2024-06-08 17:44] LABS: Direct LDL Cholesterol 115.62 mg/dL (100-129)
[2024-06-08 18:05] LABS: Thyroid Stimulating Hormone 1.81 uIU/mL (0.465-4.68)
== END 2024-06-08 23:59 | disposition home or self-care (01) ==
LOC: LAB.DROPOF 06-09 09:26
PROVIDERS: PCP Family Medicine; Visit Provider Family Medicine
DX: I10 Essential (primary) hypertension (principal); E78.5 Hyperlipidemia, unspecified
CPT/HCPCS: 80050; 80053; 80061; 84443; 85025

== ENCOUNTER 2024-09-29 21:18 | Inpatient (IN) | payer MEDICARE, SELFPAY ==
--- NOTE | 2024-09-29 21:15 | ECG_ITS ---
APPROVED REPORT Exam: Resting ECG HR:134 bpm ECG Measurements Heart Rate 134 AXES VT 166 P -15 QRSd 85 QRS 2 QT 290 T 29 QTc 369 Conclusion SINUS TACHYCARDIA LOW QRS VOLTAGE IN PRECORDIAL LEADS [QRS DEFLECTION < 1.0 mV IN CHEST LEADS] ST DEVIATION AND MODERATE T-WAVE ABNORMALITY, CONSIDER ANTERIOR ISCHEMIA [-0.1+ mV T-WAVE IN V3/V4] ABNORMAL ECG Electronically signed by : DAWSON POWERS, 09/30/2024 17:26:43
[2024-09-29 21:19] VITALS: BP 189/103; PULSE 110; RESP 18; TEMP 36.8; O2SAT 99; BMI 25.4
[2024-09-29 21:30] VITALS: BP 189/103; RESP 11
--- NOTE | 2024-09-29 21:43 | XR_ITS ---
PROCEDURE INFORMATION: Exam: XR Chest Exam date and time: 09/29/2024 10:00 PM Age: 79 years old Clinical indication: Dyspnea TECHNIQUE: Imaging protocol: Radiologic exam of the chest. Views: 1 view. COMPARISON: CR XR CHEST PORTABLE 05/07/2022 10:41 AM FINDINGS: Lungs: Unremarkable. No consolidation. Pleural spaces: Unremarkable. No pleural effusion. No pneumothorax. Heart/Mediastinum: Unremarkable. No cardiomegaly. Loop recorder over the left side of the heart redemonstrated. Bones/joints: Unremarkable. IMPRESSION: Stable chest x-ray with no acute disease.
--- NOTE | 2024-09-29 21:45 | ED_ITS ---
Discharge Plan Disposition Patient Disposition: Admitted Prescriptions Prescriptions: No Action isosorbide mononitrate 30 mg tablet extended release 24 hr 30 mg PO BID 90 Days Qty: 180 1RF losartan 50 mg tablet 25 mg PO DAILY 90 Days Qty: 45 1RF albuterol sulfate 90 mcg/actuation HFA aerosol inhaler 2 puff inhalation Q6H PRN (Reason: shortness of breath or wheezing) Qty: 8.5 3RF doxycycline hyclate 100 mg tablet 100 mg PO BID Qty: 20 0RF alprazolam 0.25 mg tablet 0.25 mg PO DAILYP PRN (Reason: Anxiety) Qty: 30 2RF omeprazole 40 mg capsule,delayed release(DR/EC) 40 mg PO DAILY Qty: 90 3RF hydrochlorothiazide 12.5 mg capsule 12.5 mg PO DAILY 90 Days Qty: 90 1RF carvedilol 3.125 mg tablet 3.125 mg PO BID 90 Days Qty: 180 1RF zolpidem [Ambien] 5 mg tablet 5 mg PO HS PRN (Reason: Sleep) Qty: 30 2RF fluticasone propionate [Flonase Allergy Relief] 50 mcg/actuation spray,suspension 1 spray intranasal DAILY PRN (Reason: nasal congestion) Qty: 16 5RF Rx Instructions: administer into each nostril prednisone 50 mg tablet 50 mg PO DAILY Qty: 7 0RF aspirin [Aspir-81] 81 MG tablet,delayed release (DR/EC) 81 mg PO DAILY nitroglycerin [Nitrostat] 0.4 MG tablet, sublingual 0.4 mg sublingual NEEDED PRN (Reason: Chest Pain) Referrals Follow up/Referrals: Franko Juarez MD [Primary Care Provider] - See instructions Devon Montoya MD [Staff Physician] - See instructions Clinical Impressions Clinical Impression: Tachycardia, Heart palpitations Chest pain Qualifiers: Chest pain type: unspecified Qualified Code(s): R07.9 - Chest pain, unspecified Print Language Print Language: Hungarian Discharge ED Provider: Mika Urbano General Adult HPI <Mika Urbano MD - Last Filed: 09/29/24 23:21> General Chief complaint: Chest Pain Stated complaint: chest pain Time Seen by Provider: 09/29/24 21:30 History of Present Illness HPI narrative: Patient is a 79-year-old presenting today with heart palpitations. Intermittently ongoing over the last day with episodes of chest pain most lasting 5 minutes currently she is without those symptoms. States that she was symptomatic all the way up until coming to the emergency department and then began having symptoms after her EKG that lasted a short period of time she is currently asymptomatic. States her heart rate has been getting up into the 130s and 140s. Has a history of Takotsubo's cardiomyopathy which occurred about 10 years ago secondary to a stressful event at a family get together. They state that her heart function has completely resolved since that time but she has also had another IA she denies any history of implantable cardiac device or stents etc. She is followed by Dr. Diego at [facility]. She had aspirin earlier today. Denies any fevers or chills or any other symptoms. Related Data Home Medications ?Medication ?Instructions ?Recorded ?Confirmed aspirin 81 mg tablet,delayed 81 mg PO DAILY [facility] 01/28/18 09/19/24 release (Aspir-) nitroglycerin 0.4 mg sublingual 0.4 mg sublingual NEEDED PRN 01/29/18 09/19/24 tablet (Nitrostat) Chest Pain Previous Rx's ?Medication ?Instructions ?Recorded alprazolam 0.25 mg tablet 0.25 mg PO DAILYP PRN Anxiety #30 03/24/23 tabs isosorbide mononitrate 30 mg 30 mg PO BID hypertension 90 days 09/15/23 tablet,extended release 24 hr #180 tabs losartan 50 mg tablet 25 mg (1/2 x 50 mg) PO DAILY HTN 09/15/23 90 days #45 tabs omeprazole 40 mg capsule,delayed 40 mg PO DAILY GERD #90 caps 11/23/23 release hydrochlorothiazide 12.5 mg capsule 12.5 mg PO DAILY hypertension 90 04/20/24 days #90 caps albuterol sulfate 90 mcg/actuation 2 puff inhalation Q6H PRN 05/10/24 aerosol inhaler shortness of breath or wheezing #8.5 grams carvedilol 3.125 mg tablet 3.125 mg PO BID bp 90 days #180 07/20/24 tabs fluticasone propionate 50 1 spray intranasal DAILY PRN nasal 08/22/24 mcg/actuation nasal congestion #16 grams spray,suspension (Flonase Allergy Relief) zolpidem 5 mg tablet (Ambien) 5 mg PO HS PRN Sleep #30 tabs 08/22/24 doxycycline hyclate 100 mg tablet 100 mg PO BID #20 tabs 09/19/24 prednisone 50 mg tablet 50 mg PO DAILY #7 tabs 09/25/24 Allergies Allergy/AdvReac Type Severity Reaction Status Date / Time Penicillins (PENICILLINS) Allergy Mild Verified 09/19/24 13:57 promethazine (PROMETHAZINE) Allergy Mild Verified 09/19/24 13:57 pseudoephedrine (From Allergy Mild Verified 09/19/24 13:57 SUDAFED) Sulfa (Sulfonamide Allergy Mild Verified 09/19/24 13:57 Antibiotics) (SULFA (SULFONAMIDE ANTIBIOTICS)) diclofenac (From Voltaren) Allergy Rash Verified 09/19/24 13:57 azithromycin AdvReac Intermediate Gastrointestinal Verified 09/19/24 13:57 Upset cephalexin AdvReac Intermediate Gastrointestinal Verified 09/19/24 13:57 Upset statins AdvReac Severe muscle Uncoded 09/19/24 13:57 cramps PFS <Mika Urbano MD - Last Filed: 09/29/24 23:21> [facility] Disclaimer: The information contained in this section may have been updated after the patient was seen, as this information can be updated by other users. Medical History Asthma Insomnia Anxiety Hypertension Tachycardia Cardiomyopathy Surgical History History of colonoscopy History of hysterectomy H/O lumpectomy Family History Father Coronary artery disease Heart attack Hypertension Grandfather Coronary artery disease Heart attack Grandmother Diabetes Stroke Thyroid disorder Mother Stroke Sister Cancer Social History Smoking Status: Never smoker years smoked: 4 smoking status stop date: 11/01/1969 alcohol intake: never current occupational status: retired household members: spouse housing: house Other Medical History Have you received the Flu Vaccine for this season: Yes Have you received the Pneumonia Vaccine: Yes <Mika Urbano MD - Last Filed: 09/29/24 23:21> ROS Obtained: Yes All systems reviewed & no additional complaints except as documented Physical Exam <Mika Urbano MD - Last Filed: 09/29/24 23:21> General General appearance: alert Respiratory Respiratory exam: Present normal lung sounds bilaterally; Absent respiratory distress Cardiovascular Cardiovascular exam: Present tachycardia Neurological Exam Neurological exam: Present alert and oriented X3 Medical Decision Making <Mika Urbano MD - Last Filed: 09/29/24 23:21> Medical Records Screening: Per USPSTF and CDC recommendations, given the prevalence of disease in our region, it is our hospital?s policy to screen for HIV and viral Hepatitis for all patients aged 18 and over and those with ongoing risk factors. Cj Inquiry Pt receiving controlled substance: No Vital Signs: 09/29/24 21:19 09/29/24 21:30 09/29/24 22:09 Temperature 98.2 F Temperature Source Tympanic Pulse Rate 100 H Pulse Rate [Left] 110 H Respiratory Rate 18 11 L Blood Pressure 189/103 H Blood Pressure [Right Arm] 189/103 H Blood Pressure Mean [Right Arm] 131 02 Sat by Pulse Oximetry 99 Oxygen Delivery Method Room Air Lab Data Lab results reviewed: Yes I reviewed the patient's lab results. Lab Results 09/29/24 21:50: WBC 14.2 H, RBC 4.68, Hgb 13.9, Hct 40.6, MCV 86.8, MCH 29.6, MCHC 34.1, RDW 13.7, Plt Count 385, MPV 7.6, Neut % (Auto) 83.1 H, Lymph % (Auto) 10.7, [place] % (Auto) 5.2, Eos % (Auto) 0.1, Baso % (Auto) 1.0, Neut # (Auto) 11.8 H, Lymph # (Auto) 1.5, [place] # (Auto) 0.7, Eos # (Auto) 0.0, Baso # (Auto) 0.2, D-Dimer 0.47, Sodium 138, Potassium 3.7, Chloride 103, Carbon Dioxide 24, Anion Gap 14.7, BUN 25 H, Creatinine 0.80, Estimated Creat Clear 53, Estimated GFR 70, Est GFR ( Amer) 84, Glucose 230 H, Calcium 9.5, Magnesium 1.8, Total Bilirubin 0.5, AST 36, ALT 33, Alkaline Phosphatase 77, Troponin I < 0.01, NT-Pro-B Natriuret Pep 208, Total Protein 6.7, Albumin 4.3, Globulin 2.4, Albumin/Globulin Ratio 1.8, TSH 0.49, HIV 1&2 Antibody Rapid Nonreactive 09/29/24 21:57: SARS-CoV-2 (PCR) Not detected, Influenza A Untype (PCR) Not detected, Influenza Type B (PCR) Not detected 09/30/24 00:24: Troponin I 0.02 09/29/24 21:50 09/29/24 21:50 Orders (Tests/Meds): ED MEDICATIONS Generic Name Dose Route Start Last Admin Trade Name Freq PRN Reason Stop Dose Admin Morphine Sulfate 4 mg 09/30/24 02:04 Morphine 4mg/Ml Syringe IV 09/30/24 02:05 ONCE ONE Sodium Chloride 10 ml 09/29/24 22:43 09/29/24 22:44 Sodium Chloride 0.9% 10ml Syr (Rad Only) IV 10/29/24 22:42 10 ml NEEDED PRN Administration Maintain IV Site Discontinued Medications Generic Name Dose Route Start Last Admin Trade Name Freq PRN Reason Stop Dose Admin Lactated Ringer's 500 mls @ 999 mls/hr 09/29/24 21:45 09/29/24 21:50 Lactated Ringer's 1000 Ml Bag IV 09/29/24 22:15 999 mls/hr .Q31M MARIA E Administration Iopamidol 80 ml 09/29/24 22:43 09/29/24 22:44 Iopamidol-370 (76%);100ml Bottle IV 09/29/24 22:44 80 ml ONCE ONE Administration Nitroglycerin 0.4 mg 09/30/24 01:48 09/30/24 01:52 Nitroglycerin 0.4mg Sl Tablet SL 09/30/24 01:49 0.4 mg ONCE ONE Administration Sodium Chloride 50 ml 09/29/24 22:43 09/29/24 22:44 0.9 % Sodium Chloride 50 Ml Vial IV 09/29/24 22:44 50 ml ONCE ONE Administration ORDERS Category Date Time Status CT angio chest - dissection Stat Cat Scan 09/29/24 21:57 Completed CXR --portable [XR chest portable] Stat Exams 09/29/24 21:43 Completed POCUS Point of Care (ER Only) Stat Exams 09/29/24 21:43 Taken BNP [NT Pro Brain Natriuretic Pep.] Stat Lab 09/29/24 21:50 Completed CBC w/Auto Diff [Complete Blood Count Auto Diff] Stat Lab 09/29/24 21:50 Completed CMP [Comprehensive Metabolic Panel] Stat Lab 09/29/24 21:50 Completed D-Dimer Stat Lab 09/29/24 21:50 Completed HIV (1&2) Antibody Rapid Stat Lab 09/29/24 21:50 Completed Hep C Ab with Reflex to RNA Stat Lab 09/29/24 21:50 Received Magnesium Stat Lab 09/29/24 21:50 Completed Rapid PCR Covid and Flu A/B Stat Lab 09/29/24 21:57 Completed TSH [Thyroid Stimulating Hormone] Stat Lab 09/29/24 21:50 Completed Trop I [Troponin I] Stat Lab 09/29/24 21:50 Completed Troponin I Q3H Lab 09/30/24 00:24 Completed Troponin I Q3H Lab 09/30/24 03:45 Ordered ECG Request Stat Y 09/30/24 01:44 Ordered ECG Data Tracing #1: I reviewed this ECG and interpreted as documented below: Ventricular rate of 134 and regular no acute ischemic changes noted poor baseline noted possible flutter waves but cannot definitively see flutter versus P waves in this particular EKG is at baseline is poor indeterminate axis Tracing #2: I reviewed this ECG and interpreted as documented below: Ventricular rate of 120 sinus tachycardia no acute ischemic changes noted normal axis no other significant conduction abnormalities noted HEART Score History (anamnesis): Slightly suspicious ECG: Non-specific disturbance Age: >65 years Risk factors: Atherosclerosis history Troponin: </= normal limit HEART Score: 5 Medical Decision Narrative: 79-year-old presenting today with chest pain and intermittent palpitations. Differential includes arrhythmia such as atrial fibrillation and atrial flutter that is intermittent and paroxysmal. Also other causes of sinus tachycardia including pulmonary embolism infection IA etc. Serial tropes will be indicated given the duration of patient's symptoms with presentation. D-dimer will be obtained and cutoff for CT PE will be 1.0 utilizing years criteria. Electrolytes TSH etc. will be administered in addition to IV fluids also will do a bedside ultrasound to evaluate the heart function. Reassessment 9:59 PM patient had recurrence of her chest pain while I was doing limited bedside ultrasound which was unremarkable specifically no evidence of any definitive regional wall motion abnormalities depressed EF severe right heart strain etc. She did have recurrence of her symptoms and while we were obtaining her EKG did show sinus tachycardia no evidence of arrhythmia and given the fact that she was having her symptoms and mL of this this essentially rules out an arrhythmia at this point. However she was tachycardic to 120 and described pain that was radiating through to her back in the middle of her shoulder blades we will get a CTA of the chest to rule out aortic dissection at this point. No definitive evidence of a STEMI or anything that would require going to the Pain Management Nurse Practitioner at this point but we will keep a close eye on her. Reassessment 1117 patient very comfortable on serial assessment CT scan performed which I personally interpreted shows no dissection pulmonary embolism or other emergent medical condition. Radiology read some calcifications suggesting possible coronary artery disease but that does not rule in or out acute coronary syndrome. Will obtain a second troponin to rule out acute coronary syndrome which is unlikely at this point. At this point patient has had some intermittent inappropriate sinus tachycardia that lasted a few minutes and is associated with some chest discomfort without any evidence of ischemia on EKG nor any evidence of troponin elevation this is likely not acute coronary syndrome. No other emergent medical condition identified and she has close outpatient follow-up with her [employer] supervisor I will also give her referral to Dr. Montoya. Care will be transitioned to Dr. Poornima [place] at 11:20 PM ED observation order has been placed. <Licha [place] MD - Last Filed: 09/30/24 02:12> Vital Signs: 09/29/24 21:19 09/29/24 21:30 09/29/24 22:09 Temperature 98.2 F Temperature Source Tympanic Pulse Rate 100 H Pulse Rate [Left] 110 H Respiratory Rate 18 11 L Blood Pressure 189/103 H Blood Pressure [Right Arm] 189/103 H Blood Pressure Mean [Right Arm] 131 02 Sat by Pulse Oximetry 99 Oxygen Delivery Method Room Air Lab Data Lab Results 09/29/24 21:50: WBC 14.2 H, RBC 4.68, Hgb 13.9, Hct 40.6, MCV 86.8, MCH 29.6, MCHC 34.1, RDW 13.7, Plt Count 385, MPV 7.6, Neut % (Auto) 83.1 H, Lymph % (Auto) 10.7, [place] % (Auto) 5.2, Eos % (Auto) 0.1, Baso % (Auto) 1.0, Neut # (Auto) 11.8 H, Lymph # (Auto) 1.5, [place] # (Auto) 0.7, Eos # (Auto) 0.0, Baso # (Auto) 0.2, D-Dimer 0.47, Sodium 138, Potassium 3.7, Chloride 103, Carbon Dioxide 24, Anion Gap 14.7, BUN 25 H, Creatinine 0.80, Estimated Creat Clear 53, Estimated GFR 70, Est GFR ( Amer) 84, Glucose 230 H, Calcium 9.5, Magnesium 1.8, Total Bilirubin 0.5, AST 36, ALT 33, Alkaline Phosphatase 77, Troponin I < 0.01, NT-Pro-B Natriuret Pep 208, Total Protein 6.7, Albumin 4.3, Globulin 2.4, Albumin/Globulin Ratio 1.8, TSH 0.49, HIV 1&2 Antibody Rapid Nonreactive 09/29/24 21:57: SARS-CoV-2 (PCR) Not detected, Influenza A Untype (PCR) Not detected, Influenza Type B (PCR) Not detected 09/30/24 00:24: Troponin I 0.02 Orders (Tests/Meds): ED MEDICATIONS Generic Name Dose Route Start Last Admin Trade Name Freq PRN Reason Stop Dose Admin Morphine Sulfate 4 mg 09/30/24 02:04 Morphine 4mg/Ml Syringe IV 09/30/24 02:05 ONCE ONE Sodium Chloride 10 ml 09/29/24 22:43 09/29/24 22:44 Sodium Chloride 0.9% 10ml Syr (Rad Only) IV 10/29/24 22:42 10 ml NEEDED PRN Administration Maintain IV Site Discontinued Medications Generic Name Dose Route Start Last Admin Trade Name Freq PRN Reason Stop Dose Admin Lactated Ringer's 500 mls @ 999 mls/hr 09/29/24 21:45 09/29/24 21:50 Lactated Ringer's 1000 Ml Bag IV 09/29/24 22:15 999 mls/hr .Q31M MARIA E Administration Iopamidol 80 ml 09/29/24 22:43 09/29/24 22:44 Iopamidol-370 (76%);100ml Bottle IV 09/29/24 22:44 80 ml ONCE ONE Administration Nitroglycerin 0.4 mg 09/30/24 01:48 09/30/24 01:52 Nitroglycerin 0.4mg Sl Tablet SL 09/30/24 01:49 0.4 mg ONCE ONE Administration Sodium Chloride 50 ml 09/29/24 22:43 09/29/24 22:44 0.9 % Sodium Chloride 50 Ml Vial IV 09/29/24 22:44 50 ml ONCE ONE Administration ORDERS Category Date Time Status CT angio chest - dissection Stat Cat Scan 09/29/24 21:57 Completed CXR --portable [XR chest portable] Stat Exams 09/29/24 21:43 Completed POCUS Point of Care (ER Only) Stat Exams 09/29/24 21:43 Taken BNP [NT Pro Brain Natriuretic Pep.] Stat Lab 09/29/24 21:50 Completed CBC w/Auto Diff [Complete Blood Count Auto Diff] Stat Lab 09/29/24 21:50 Completed CMP [Comprehensive Metabolic Panel] Stat Lab 09/29/24 21:50 Completed D-Dimer Stat Lab 09/29/24 21:50 Completed HIV (1&2) Antibody Rapid Stat Lab 09/29/24 21:50 Completed Hep C Ab with Reflex to RNA Stat Lab 09/29/24 21:50 Received Magnesium Stat Lab 09/29/24 21:50 Completed Rapid PCR Covid and Flu A/B Stat Lab 09/29/24 21:57 Completed TSH [Thyroid Stimulating Hormone] Stat Lab 09/29/24 21:50 Completed Trop I [Troponin I] Stat Lab 09/29/24 21:50 Completed Troponin I Q3H Lab 09/30/24 00:24 Completed Troponin I Q3H Lab 09/30/24 03:45 Ordered ECG Request Stat Y 09/30/24 01:44 Ordered HEART Score HEART Score: 5 Medical Decision Narrative: 79-year-old presenting today with chest pain and intermittent palpitations. Differential includes arrhythmia such as atrial fibrillation and atrial flutter that is intermittent and paroxysmal. Also other causes of sinus tachycardia including pulmonary embolism infection IA etc. Serial tropes will be indicated given the duration of patient's symptoms with presentation. D-dimer will be obtained and cutoff for CT PE will be 1.0 utilizing years criteria. Electrolytes TSH etc. will be administered in addition to IV fluids also will do a bedside ultrasound to evaluate the heart function. Reassessment 9:59 PM patient had recurrence of her chest pain while I was doing limited bedside ultrasound which was unremarkable specifically no evidence of any definitive regional wall motion abnormalities depressed EF severe right heart strain etc. She did have recurrence of her symptoms and while we were obtaining her EKG did show sinus tachycardia no evidence of arrhythmia and given the fact that she was having her symptoms and mL of this this essentially rules out an arrhythmia at this point. However she was tachycardic to 120 and described pain that was radiating through to her back in the middle of her shoulder blades we will get a CTA of the chest to rule out aortic dissection at this point. No definitive evidence of a STEMI or anything that would require going to the Pain Management Nurse Practitioner at this point but we will keep a close eye on her. Reassessment 1117 patient very comfortable on serial assessment CT scan performed which I personally interpreted shows no dissection pulmonary embolism or other emergent medical condition. Radiology read some calcifications suggesting possible coronary artery disease but that does not rule in or out acute coronary syndrome. Will obtain a second troponin to rule out acute coronary syndrome which is unlikely at this point. At this point patient has had some intermittent inappropriate sinus tachycardia that lasted a few minutes and is associated with some chest discomfort without any evidence of ischemia on EKG nor any evidence of troponin elevation this is likely not acute coronary syndrome. No other emergent medical condition identified and she has close outpatient follow-up with her [employer] supervisor I will also give her referral to Dr. Montoya. Care will be transitioned to Dr. Poornima [place] at 11:20 PM ED observation order has been placed. [place]: Upon my assumption of care patient is stable, she continues complaining of chest pressure but no sharp pains like she was having earlier. She was monitored on the senior controls engineer with persistent borderline tachycardia with heart rate around 100, blood pressure in the 160s to 170s. Serial troponin was pending. Repeat troponin resulted at 0.02, slight increase. Patient had not had any worsening of her chest pain but repeat ECG was performed and personally interpreted demonstrating sinus tachycardia, rate 102, normal axis, normal MT and QTc, no STEMI or ischemic changes. I gave patient a single dose of sublingual nitro which did not change the patient symptoms, and her blood pressure actually increased. I discussed this case with Dr. Montoya with cardiology, he agrees with my plan for admission and recommends morphine at this time, no anticoagulation or other interventions. Morphine administered. I discussed this case with the hospitalist who is accepted the patient for admission. He did recommend GI cocktail which is being administered. IV labetalol ordered as well since patient's blood pressure is now above 200. Patient admitted in stable condition. Procedures <Mika Urbano MD - Last Filed: 09/29/24 23:21> Miscellaneous Procedure Procedure Performed: Limited cardiac ultrasound Indication: Chest Identified structures: The heart was visualized in the parasternal long axis, parastenal short axis, apical four chamber and subxyphiod views. The IVC was visualized in the short axis and long axis at its entry into the right atrium. Findings: No evidence of depressed LVEF severe right heart strain or pericardial effusion Impression: Unremarkable limited ultrasound of the heart Images were saved to permanent archive The study was technically adequate CPT: 06277-12 This study was performed by me, and I personally interpreted all images/videos. Based on my clinical judgement, these images were adequate and did not necessitate further imaging. Critical Care <Mika Urbano MD - Last Filed: 09/29/24 23:21> Critical Care Time Critical Care Time: Yes Attestation: On 09/29/24, the high probability of a clinically significant, sudden or life threatening deterioration of the following system(s) required my full and direct attention, intervention and personal management. The time I documented below is in addition to time spent performing reported procedures but includes the following listed in this critical care notation. Total Time Total Critical Care Time: 35
[2024-09-29] MEDS: LACTATED RINGERS 1000ML 500 ML 999 ML IV (21:50)
--- NOTE | 2024-09-29 21:54 | ECG_ITS ---
APPROVED REPORT Exam: Resting ECG HR:120 bpm ECG Measurements Heart Rate 120 AXES MD 173 P 65 QRSd 89 QRS 57 QT 311 T 48 QTc 382 Conclusion SINUS TACHYCARDIA LOW QRS VOLTAGE IN PRECORDIAL LEADS [QRS DEFLECTION < 1.0 mV IN CHEST LEADS] MODERATE ST DEPRESSION [0.05+ mV ST DEPRESSION] ABNORMAL ECG UNCONFIRMED REPORT Electronically signed by : Momo Urbano, 09/29/2024 23:24:23
--- NOTE | 2024-09-29 21:57 | CT_ITS ---
PROCEDURE INFORMATION: Exam: CTA Chest With Contrast Exam date and time: 09/29/2024 10:37 PM Age: 79 years old Clinical indication: Other: Chest pain; Additional info: Chest pain radiating to back TECHNIQUE: Imaging protocol: Computed tomographic angiography of the chest with contrast. Exam focused on the arteries. 3D rendering (Not supervised by radiologist): MIP and/or 3D reconstructed images were created by the technologist. Radiation optimization: All CT scans at this facility use at least one of these dose optimization techniques: automated exposure control; mA and/or kV adjustment per patient size (includes targeted exams where dose is matched to clinical indication); or iterative reconstruction. Contrast material: ISO 370; Contrast volume: 80 ml; Contrast route: INTRAVENOUS (IV); COMPARISON: CR XR CHEST PORTABLE 09/29/2024 10:00 PM FINDINGS: Pulmonary arteries: Normal. No pulmonary emboli. Aorta: Unremarkable. No aortic aneurysm. No aortic dissection. Lungs: Unremarkable. No consolidation. No masses. Pleural spaces: Unremarkable. No pneumothorax. No pleural effusion. Heart: Unremarkable. No cardiomegaly. No pericardial effusion. Coronary arteries: Moderate coronary artery calcifications suggesting coronary artery disease. Lymph nodes: Unremarkable. No enlarged lymph nodes. Spleen: Subcentimeter low-density lesion in the spleen on axial image 85 of series 5. Bones/joints: Unremarkable. No acute fracture. Soft tissues: Potential mild dilatation of the partially visualized extrahepatic CBD measuring 9 mm. IMPRESSION: 1. No evident PE. No other acute findings. 2. Moderate coronary artery calcifications suggesting coronary artery disease. 3. Subcentimeter low-density lesion in the spleen. For patients without or with history of cancer, recommend follow-up MRI in 6-12 months. 4. Possible mild dilatation of the CBD incompletely assessed with this study. Consider further assessment with ultrasound.
[2024-09-29 22:00] LABS: Coronavirus 19, PCR Not Detected (NotDetected); Influenza A, PCR Not Detected (NotDetected); Influenza B, PCR Not Detected (NotDetected)
[2024-09-29 22:01] LABS: Basophils # 0.2 K/mm3 (0-0.2); Eosinophils % 0.1 % (0.1-12.0); Hematocrit 40.6 % (37.0-47.0); Hemoglobin 13.9 g/dL (12.2-16.2); Lymphocytes # 1.5 K/mm3 (0.7-4.5); Lymphocytes % 10.7 % (10-50); Mean Corpuscular HGB Conc 34.1 g/dL (31.8-35.4); Mean Corpuscular Hemoglobin 29.6 pg (27.0-31.2); Mean Corpuscular Volume 86.8 fl (81-99); Mean Platelet Volume 7.6 fl (7.4-10.4); Monocytes # 0.7 K/mm3 (0.1-1.0); Monocytes % 5.2 % (1.7-9.3); Neutrophils # 11.8 K/mm3 (1.8-7.8); Neutrophils % 83.1 % (37.0-80.0); Platelet Count 385 K/mm3 (142-424); Red Blood Count 4.68 M/mm3 (4.20-5.40); Red Cell Distribution Width 13.7 % (11.5-17.5); White Blood Count 14.2 K/mm3 (4.8-10.8)
[2024-09-29 22:08] LABS: Alanine Aminotransferase 33 U/L (12-78); Albumin Level 4.3 g/dl (3.5-5.0); Albumin/Globulin Ratio 1.8 (1.1-1.8); Alkaline Phosphatase 77 U/L (38-126); Anion Gap 14.7 mEq/L (5-15); Aspartate Amino Transferase 36 U/L (14-36); Bilirubin,Total 0.5 mg/dl (0.2-1.3); Blood Urea Nitrogen 25 mg/dl (7-17); Calcium 9.5 mg/dl (8.4-10.2); Carbon Dioxide 24 mmol/L (22.0-30.0); Chloride 103 mmol/L (98-107); Creatinine Clearance Estimated 53 mL/min (50-200); Estimated Glomerular Filt Rate 70 ml/min (>60); GFR (African American) 84 ML/MIN (>60); Globulin 2.4 g/dL (1.3-3.2); Glucose 230 mg/dl (74-100); Magnesium 1.8 mg/dl (1.6-2.3); Potassium 3.7 mmoL/L (3.5-5.1); Sodium 138 mmol/L (136-145); Total Protein,Serum 6.7 g/dl (6.3-8.2)
[2024-09-29 22:09] VITALS: PULSE 100
[2024-09-29 22:13] LABS: D-Dimer 0.47 ug/mL (0.0-0.5)
[2024-09-29 22:22] LABS: NT Pro Brain Natriuretic Pep. 208 pg/mL (0-450)
[2024-09-29 22:29] LABS: Troponin I < 0.01 ng/ml (0.00-0.034)
[2024-09-29 22:40] LABS: Thyroid Stimulating Hormone 0.49 uIU/mL (0.465-4.68)
[2024-09-29] MEDS: 0.9 % SODIUM CHLORIDE 50 ML VIAL IV (22:44)
[2024-09-29] MEDS: SODIUM CHLORIDE 0.9% 10ML SYR (RAD ONLY) 10 ML IV (22:44)
[2024-09-29] MEDS: IOPAMIDOL-370 (76%);100ML BOTTLE 80 ML IV (22:44)
[2024-09-29 23:34] LABS: HIV (1&2) Antibody Rapid NONREACTIVE (NONREACTIVE)
[2024-09-30] VITALS (10 sets, daily range): BP systolic 116–226; BP diastolic 49–128; PULSE 53–84; RESP 12–20; TEMP 36.4–36.8; O2SAT 97–99; BMI 27.6
[2024-09-30 00:50] LABS: Troponin I 0.02 ng/ml (0.00-0.034)
[2024-09-30] MEDS: NITROGLYCERIN 0.4MG SL TABLET 0.4 MG SL (01:52)
--- NOTE | 2024-09-30 01:57 | ECG_ITS ---
APPROVED REPORT Exam: Resting ECG HR:102 bpm ECG Measurements Heart Rate 102 AXES GA 180 P 65 QRSd 80 QRS 55 QT 342 T 17 QTc 401 Conclusion SINUS TACHYCARDIA LOW QRS VOLTAGE IN PRECORDIAL LEADS [QRS DEFLECTION < 1.0 mV IN CHEST LEADS] ABNORMAL RHYTHM ECG No STEMI Electronically signed by : MERLY RANDHAWA, 09/30/2024 06:06:24
[2024-09-30] MEDS: BELLADONNA ALKALOIDS 60 ML ML PO (02:13)
[2024-09-30] MEDS: MORPHINE 4MG/ML SYRINGE 4 MG IV (02:13)
--- NOTE | 2024-09-30 02:15 | PC.NURSE ---
Report called to JAYME Allen
[2024-09-30] MEDS: LABETALOL 20MG/4ML SYRINGE 10 MG IV (02:25)
--- NOTE | 2024-09-30 03:29 | PC.NURSE ---
Kiara MARCOS requested a repeat EKG [id number]. Respiratory was paged at 03:24 to perform EKG 12-lead. Kiara MARCOS is at patient's bedside, consulting with her and .
--- NOTE | 2024-09-30 03:37 | ECG_ITS ---
APPROVED REPORT Exam: Resting ECG HR:80 bpm ECG Measurements Heart Rate 80 AXES LA 183 P 71 QRSd 89 QRS 39 QT 359 T 24 QTc 395 Conclusion SINUS RHYTHM LOW QRS VOLTAGE IN PRECORDIAL LEADS [QRS DEFLECTION < 1.0 mV IN CHEST LEADS] BORDERLINE ECG UNCONFIRMED REPORT Electronically signed by : Channing Christian MD 10/01/2024 11:17:13
[2024-09-30] MEDS: FAMOTIDINE 20MG TABLET 40 MG PO (03:40)
--- NOTE | 2024-09-30 03:48 | EXP.HP ---
History of Present Illness *Admission Date: 09/30/24 *Reason for visit:: Chest pain *History of present illness: Rachael Fleming is a 79-year-old female with a medical history significant for former Takotsubo cardiomyopathy x 3, sinus arrhythmias, asthma, hypertension, GERD who presents with palpitations and chest pain that began at 7 PM last night. She states she had just returned from eating fried chicken with her family and was sitting in a recliner when she began to feel sudden onset palpitations. Her heart rate was reportedly as high as 140 at home. About 45 minutes later, she began to experience midsternal chest pain with radiation to the back. She and her proceeded to the ED. Workup in the ED significant for WBC 14.2, troponin negative to 0.02. EKG did not show acute ischemic findings CTA did not show PE or dissection, but did allude to possible mild dilatation of CBD and lesion on spleen. Given elevated troponin and chest pain, Dr. Montoya was consulted and recommended admission and trending troponins. Nitro tabs or GI cocktail did not alleviate pain, however morphine did. Case was discussed with ED provider and decision was made to admit patient for persistent chest pain workup. [facility] Disclaimer: The information contained in this section may have been updated after the patient was seen, as this information can be updated by other users. Medical History Asthma Insomnia Anxiety Hypertension Tachycardia Cardiomyopathy Surgical History History of colonoscopy History of hysterectomy H/O lumpectomy Family History Father Coronary artery disease Heart attack Hypertension Grandfather Coronary artery disease Heart attack Grandmother Diabetes Stroke Thyroid disorder Mother Stroke Sister Cancer Social History (Updated 09/30/24 @ 02:58 by Tiffany Mina RN) Smoking Status: Never smoker years smoked: 4 smoking status stop date: 11/01/1969 alcohol intake: never current occupational status: retired household members: spouse housing: house Other Medical History Have you received the Flu Vaccine for this season: No Have you received the Pneumonia Vaccine: Yes Meds Home Medications and Allergies Home Medications ?Medication ?Instructions ?Recorded ?Confirmed ?Type aspirin 81 mg tablet,delayed 81 mg PO DAILY heart health 01/28/18 09/30/24 History release (Aspir-) nitroglycerin 0.4 mg sublingual 0.4 mg sublingual NEEDED PRN 01/29/18 09/30/24 History tablet (Nitrostat) Chest Pain alprazolam 0.25 mg tablet 0.25 mg PO DAILYP PRN Anxiety #30 03/24/23 09/30/24 Rx tabs isosorbide mononitrate 30 mg 30 mg PO BID hypertension 90 days 09/15/23 09/30/24 Rx tablet,extended release 24 hr #180 tabs losartan 50 mg tablet 25 mg (1/2 x 50 mg) PO DAILY HTN 09/15/23 09/30/24 Rx 90 days #45 tabs omeprazole 40 mg capsule,delayed 40 mg PO DAILY GERD #90 caps 11/23/23 09/30/24 Rx release hydrochlorothiazide 12.5 mg capsule 12.5 mg PO DAILY hypertension 90 04/20/24 09/30/24 Rx days #90 caps albuterol sulfate 90 mcg/actuation 2 puff inhalation Q6H PRN 05/10/24 09/30/24 Rx aerosol inhaler shortness of breath or wheezing #8.5 grams carvedilol 3.125 mg tablet 3.125 mg PO BID bp 90 days #180 07/20/24 09/30/24 Rx tabs fluticasone propionate 50 1 spray intranasal DAILY PRN nasal 08/22/24 09/30/24 Rx mcg/actuation nasal congestion #16 grams spray,suspension (Flonase Allergy Relief) zolpidem 5 mg tablet (Ambien) 5 mg PO HS PRN Sleep #30 tabs 08/22/24 09/30/24 Rx prednisone 50 mg tablet 50 mg PO DAILY #7 tabs 09/25/24 09/30/24 Rx loratadine 10 mg tablet 10 mg PO DAILY 09/30/24 09/30/24 History New Prescriptions to Start Prescriptions: Allergies Allergy/AdvReac Type Severity Reaction Status Date / Time Penicillins (PENICILLINS) Allergy Mild Verified 09/19/24 13:57 promethazine (PROMETHAZINE) Allergy Mild Verified 09/19/24 13:57 pseudoephedrine (From Allergy Mild Verified 09/19/24 13:57 SUDAFED) Sulfa (Sulfonamide Allergy Mild Verified 09/19/24 13:57 Antibiotics) (SULFA (SULFONAMIDE ANTIBIOTICS)) diclofenac (From Voltaren) Allergy Rash Verified 09/19/24 13:57 azithromycin AdvReac Intermediate Gastrointestinal Verified 09/19/24 13:57 Upset cephalexin AdvReac Intermediate Gastrointestinal Verified 09/19/24 13:57 Upset statins AdvReac Severe muscle Uncoded 09/19/24 13:57 cramps Exam Data for Last 24 hours Vital signs and Labs for Last 24 Hours: Temp Pulse Resp BP Pulse Ox O2 Del Method 98.0 F 80 12 162/83 H 99 Room Air 09/30/24 02:34 09/30/24 02:34 09/30/24 02:34 09/30/24 02:34 09/29/24 21:19 09/30/24 03:00 Laboratory Results - last 24 hr 09/29/24 21:50: WBC 14.2 H, RBC 4.68, Hgb 13.9, Hct 40.6, MCV 86.8, MCH 29.6, MCHC 34.1, RDW 13.7, Plt Count 385, MPV 7.6, Neut % (Auto) 83.1 H, Lymph % (Auto) 10.7, Haskell % (Auto) 5.2, Eos % (Auto) 0.1, Baso % (Auto) 1.0, Neut # (Auto) 11.8 H, Lymph # (Auto) 1.5, Haskell # (Auto) 0.7, Eos # (Auto) 0.0, Baso # (Auto) 0.2, D-Dimer 0.47, Sodium 138, Potassium 3.7, Chloride 103, Carbon Dioxide 24, Anion Gap 14.7, BUN 25 H, Creatinine 0.80, Estimated Creat Clear 53, Estimated GFR 70, Est GFR ( Amer) 84, Glucose 230 H, Calcium 9.5, Magnesium 1.8, Total Bilirubin 0.5, AST 36, ALT 33, Alkaline Phosphatase 77, Troponin I < 0.01, NT-Pro-B Natriuret Pep 208, Total Protein 6.7, Albumin 4.3, Globulin 2.4, Albumin/Globulin Ratio 1.8, TSH 0.49, HIV 1&2 Antibody Rapid Nonreactive 09/29/24 21:57: SARS-CoV-2 (PCR) Not detected, Influenza A Untype (PCR) Not detected, Influenza Type B (PCR) Not detected 09/30/24 00:24: Troponin I 0.02 I & O for Last 24 hours: Intake & Output 09/27/24 09/28/24 09/29/24 09/30/24 23:59 23:59 23:59 23:59 Weight 71.668 kg Constitutional Constitutional: no acute distress *Routine HEENT Exam Head: Present normocephalic Eye: Present EOMI and PERRL ENT: Present mucous membranes moist *Routine Neck Exam Neck: Present supple; Absent lymphadenopathy *Routine Respiratory Exam Respiratory: Present CTA bilaterally *Routine Cardiovascular Exam Cardiovascular: Present RRR *Routine Abdominal Exam Abdominal: Present soft and normoactive bowel sounds; Absent tenderness Comments: No RUQ or abdominal tenderness. *Routine Rectal Exam Rectal:: deferred *Routine Genitalia Exam Genitalia:: deferred *Routine Extremities Exam Extremities: Absent cyanosis, clubbing or edema *Routine Skin Exam Skin: Present warm; Absent rash *Routine Neurological Exam Neurological: Present alert and oriented X3 Assessment and Plan *Assessment and plan (1) Chest pain: Status: Acute Qualifiers: Chest pain type: unspecified Qualified Code(s): R07.9 - Chest pain, unspecified Category: Medical Code(s): R07.9 - Chest pain, unspecified (2) Hypertension: Status: Acute Category: Medical Code(s): I10 - Essential (primary) hypertension (3) Tachycardia: Status: Acute Category: Medical Code(s): R00.0 - Tachycardia, unspecified (4) Heart palpitations: Status: Acute Category: Medical Code(s): R00.2 - Palpitations (5) GERD (gastroesophageal reflux disease): Status: Acute Category: Medical Code(s): K21.9 - Gastro-esophageal reflux disease without esophagitis (6) Asthma: Status: Acute Category: Medical Code(s): J45.909 - Unspecified asthma, uncomplicated (7) Anxiety: Status: Acute Category: Medical Code(s): F41.9 - Anxiety disorder, unspecified Plan Rachael Fleming is a 79-year-old female with a medical history significant for former Takotsubo cardiomyopathy x 3, sinus arrhythmias, asthma, hypertension, GERD who presents with palpitations and chest pain that began at 7 PM last night. She states she had just returned from eating fried chicken with her family and was sitting in a recliner when she began to feel sudden onset palpitations. Her heart rate was reportedly as high as 140 at home. About 45 minutes later, she began to experience midsternal chest pain with radiation to the back. She and her proceeded to the ED. Workup in the ED significant for WBC 14.2, troponin negative to 0.02. EKG did not show acute ischemic findings CTA did not show PE or dissection, but did show moderate calcification and coronary arteries and allude to possible mild dilatation of CBD and lesion on spleen. Given elevated troponin and chest pain, Dr. Montoya was consulted and recommended admission and trending troponins. Nitro tabs or GI cocktail did not alleviate pain, however morphine did. Case was discussed with ED provider and decision was made to admit patient for persistent chest pain workup. #NSTEMI #Chest pain #History of Takotsubo cardiomyopathy #History of sinus arrhythmias ? Midsternal chest pain that radiated started about 45 minutes after tachycardia up to 140 bpm started. ? Nitro tab, GI cocktail, famotidine did not alleviate pain but morphine did. Patient does have a history of GERD and takes omeprazole 40 mg at home, and has been on steroids and doxycycline for the past week due to sinus congestion. ? Tachycardia up to 110 and BP 180s over 110s, improved with labetalol in the ED. ? Troponins negative to 0.02. EKG did not show acute ischemic findings. ? Patient does have a history of sinus arrhythmias and is currently on Coreg, follows with cardiology. ? Had an ECHO a few months back which did not show concerning findings. No signs of volume overload. ? Follow-up repeat troponin. Repeat EKG also did not show acute ischemic findings. ? Dr. Montoya did not recommend anticoagulation at this time. Will follow-up on troponin. ? Resume home aspirin, Coreg 6.25 mg twice daily. ? Cardiac telemetry. ? Repeat troponin 0.11, started heparin drip. Pending further cardiology recommendations at this time. #Hypertension ? Resume home Coreg, hydrochlorothiazide, losartan. #Asthma ? Resume home medications once reconciled. #GERD ? Resume home PPI. Full code DVT prophylaxis: Lovenox 40
--- NOTE | 2024-09-30 03:49 | PC.NURSE ---
Admission completed (around 03:00) and home medication reconciliation completed at this time.
[2024-09-30 04:18] LABS: Troponin I 0.11 ng/ml (0.00-0.034)
--- NOTE | 2024-09-30 05:26 | PC.NURSE ---
Ms Rachael Fleming was newly admitted this shift on behalf of the documented diagnoses as follows: chest pain and heart palpitations. She reported that the palpitations and chest pain onset was very sudden after eating dinner. She has a medical history of PSVT, asthma, anxiety, cardiomyopathy, hypokalemia, hyperlipidemia, etc. (see list). Since her arrival to the floor, she has not had any complaints of chest pain or generalized pain, other than some discomfort in her lower back. Patient reported that she felt a little sick after drinking the GI cocktail and felt wooziness after receiving morphine, each administered in the ER. Her troponin levels have been trending upward this shift according to each lab check thus far. Patient is being monitored on telemetry. Blood pressures have been hypertensive this shift; however, other vital signs have remained stable. Upon auscultation, patient's lung sounds were clear, S1/S2 heart sounds could be heard, and bowel sounds were active. She does not have any further complaints. At this time, the patient is resting in bed with her at the bedside. No acute changes noted thus far. Call light within reach.
--- NOTE | 2024-09-30 05:37 | PC.NURSE ---
Addendum entered by Tiffany Mina RN 09/30/24 06:15: Waiting on PTT lab draw at this time before starting heparin drip. Kiara MARCOS was paged to make aware. Addendum entered by Tiffany Mina RN 09/30/24 05:50: IV heparin bolus (4000 units/0.8 mL) and heparin/D5W 500 mL drip to be infused at 900 units/hr (18 mL/hr) will be given per DEC. Original Note: Elvin from [facility] was paged at this time regarding the heparin drip consult. He stated that he will be putting in a 4,000 unit heparin bolus plus 900 units/hr for the initial rate. He stated that the next PTT draw (initial PTT is scheduled for 06:00 this morning) will need to be taken again in 6 hours (at 12:00).
[2024-09-30] MEDS: ASPIRIN 325MG TABLET 325 MG PO (06:01)
[2024-09-30] MEDS: HEPARIN DRIP CONSULT 1 EACH NOTAPPLIC (06:01)
[2024-09-30 06:55] LABS: Basophils # 0.1 K/mm3 (0-0.2); Basophils % 0.8 % (0.1-2.0); Eosinophils # 0.1 K/mm3 (0.0-0.4); Eosinophils % 0.5 % (0.1-12.0); Hematocrit 36.8 % (37.0-47.0); Hemoglobin 12.8 g/dL (12.2-16.2); Lymphocytes # 4.5 K/mm3 (0.7-4.5); Lymphocytes % 33.5 % (10-50); Mean Corpuscular HGB Conc 34.7 g/dL (31.8-35.4); Mean Corpuscular Hemoglobin 29.7 pg (27.0-31.2); Mean Corpuscular Volume 85.8 fl (81-99); Mean Platelet Volume 7.3 fl (7.4-10.4); Monocytes # 0.9 K/mm3 (0.1-1.0); Monocytes % 7.1 % (1.7-9.3); Neutrophils # 7.7 K/mm3 (1.8-7.8); Neutrophils % 58.1 % (37.0-80.0); Platelet Count 362 K/mm3 (142-424); Red Blood Count 4.29 M/mm3 (4.20-5.40); Red Cell Distribution Width 13.4 % (11.5-17.5); White Blood Count 13.3 K/mm3 (4.8-10.8)
[2024-09-30 07:38] LABS: PTT Heparin (inpatient only) 26.2 Seconds (50-75)
[2024-09-30 07:50] LABS: Albumin Level 3.5 g/dl (3.5-5.0); Chloride 105 mmol/L (98-107); Potassium 3.5 mmoL/L (3.5-5.1); Sodium 138 mmol/L (136-145)
[2024-09-30 07:52] LABS: Blood Urea Nitrogen 18 mg/dl (7-17); Creatinine Clearance Estimated 58 mL/min (50-200); Estimated Glomerular Filt Rate 81 ml/min (>60); GFR (African American) 98 ML/MIN (>60)
[2024-09-30 07:53] LABS: Alanine Aminotransferase 20 U/L (12-78); Albumin/Globulin Ratio 1.6 (1.1-1.8); Alkaline Phosphatase 72 U/L (38-126); Anion Gap 8.5 mEq/L (5-15); Aspartate Amino Transferase 21 U/L (14-36); Bilirubin,Total 0.4 mg/dl (0.2-1.3); Calcium 9.4 mg/dl (8.4-10.2); Carbon Dioxide 28 mmol/L (22.0-30.0); Cholesterol 169 mg/dl (140-200); Globulin 2.2 g/dL (1.3-3.2); Glucose 94 mg/dl (74-100); Total Protein,Serum 5.7 g/dl (6.3-8.2); Triglycerides 80 mg/dl (30-150); VLDL Cholesterol 16 mg/dL (0-40)
[2024-09-30 07:54] LABS: Chol/HDL Ratio 2.8 (1-3.5); HDL Cholesterol 60 mg/dl (40-60); Magnesium 1.9 mg/dl (1.6-2.3)
[2024-09-30] MEDS: HEPARIN SODIUM,PORCINE/D5W 500 ML 18 UNIT IV (08:04)
[2024-09-30 08:05] LABS: Direct LDL Cholesterol 77.23 mg/dL (100-129)
[2024-09-30] MEDS: HEPARIN SODIUM 5,000 UNIT/ML VIAL 4000 UNIT IV (08:05)
[2024-09-30] MEDS: ASPIRIN EC 81MG TABLET 81 MG PO (08:50)
[2024-09-30] MEDS: ISOSORBIDE MONO 30MG TAB.ER.24H 30 MG PO (08:50)
[2024-09-30] MEDS: hydroCHLOROthiazide 12.5MG CAPSULE 12.5 MG PO (08:50)
[2024-09-30] MEDS: IRBESARTAN 75MG TABLET 37.5 MG PO (08:50)
[2024-09-30] MEDS: CARVEDILOL 3.125MG TABLET 3.125 MG PO ×2 (08:50→12:51)
--- NOTE | 2024-09-30 09:40 | HMH.PHAINT1 ---
Pharmacy Intervention Comments: MEDICATION RECONCILIATION COMPLETED ON PATIENT USING EXTERNAL FILL HISTORY FROM PHARMACY AND LIST FROM PCP OFFICE. -MARY WHELAN, FERNANDEZD
[2024-09-30] MEDS: ENOXAPARIN 80MG/0.8ML SYRINGE 80 MG SUBCUT (12:51)
[2024-09-30] MEDS: ACETAMINOPHEN 325MG TAB 650 MG PO (15:36)
--- NOTE | 2024-09-30 16:40 | PC.NURSE ---
A&OX4. TOLERATING RA WELL. HAS HAD NO C/O CHEST PAIN THUS FAR TODAY. DID C/O HEADACHE, TX PER MAR WITH TYLENOL-EFFECTIVENESS NOTED. FAMILY HAS REMAINED AT BEDSIDE T/O DAY. PATIENT HAS RESTED. GOOD APPETITE NOTED. UP INDEPENDENTLY TO BATHROOM, DID TAKE A SHOWER ALSO. NO OTHER NEEDS OR C/O NOTED, VSS.
[2024-09-30 18:34] LABS: Albumin Level 3.2 g/dl (3.5-5.0); Chloride 103 mmol/L (98-107)
[2024-09-30 18:35] LABS: Potassium 3.1 mmoL/L (3.5-5.1); Sodium 135 mmol/L (136-145)
[2024-09-30 18:37] LABS: Alanine Aminotransferase 19 U/L (12-78); Anion Gap 6.1 mEq/L (5-15); Aspartate Amino Transferase 23 U/L (14-36); Blood Urea Nitrogen 19 mg/dl (7-17); Carbon Dioxide 29 mmol/L (22.0-30.0); Creatinine Clearance Estimated 58 mL/min (50-200); Estimated Glomerular Filt Rate 70 ml/min (>60); GFR (African American) 84 ML/MIN (>60)
[2024-09-30 18:38] LABS: Albumin/Globulin Ratio 1.5 (1.1-1.8); Alkaline Phosphatase 61 U/L (38-126); Bilirubin,Total 0.5 mg/dl (0.2-1.3); Calcium 8.8 mg/dl (8.4-10.2); Globulin 2.1 g/dL (1.3-3.2); Glucose 123 mg/dl (74-100); Total Protein,Serum 5.3 g/dl (6.3-8.2)
[2024-09-30] MEDS: CARVEDILOL 6.25MG TABLET 6.25 MG PO (20:29)
[2024-09-30] MEDS: *PAT OWN MED* ISOSORBIDE MONO 30MG TAB.ER.24H 30 MG PO (20:29)
[2024-10-01] VITALS: PULSE 601
[2024-10-01] MEDS: ENOXAPARIN 80MG/0.8ML SYRINGE 80 MG SUBCUT (01:04)
[2024-10-01 04:00] VITALS: BP 118/58; PULSE 50; PULSE 61; RESP 16; TEMP 36.6; O2SAT 97; BMI 27.6
--- NOTE | 2024-10-01 04:16 | PC.NURSE ---
79 yo fe pt is A/O X 4. She is able to ambulate to BR, spouse has been at bedside throughout shift. Pt has maintained 02 sats above 90 on RA She has denied chest pain or SOA this shift. NSR per tele.
[2024-10-01 07:20] LABS: Basophils # 0.1 K/mm3 (0-0.2); Basophils % 1.3 % (0.1-2.0); Eosinophils # 0.2 K/mm3 (0.0-0.4); Eosinophils % 2.4 % (0.1-12.0); Hematocrit 36.4 % (37.0-47.0); Hemoglobin 12.5 g/dL (12.2-16.2); Lymphocytes # 4.8 K/mm3 (0.7-4.5); Lymphocytes % 58.2 % (10-50); Mean Corpuscular HGB Conc 34.3 g/dL (31.8-35.4); Mean Corpuscular Hemoglobin 29.7 pg (27.0-31.2); Mean Corpuscular Volume 86.4 fl (81-99); Mean Platelet Volume 7.6 fl (7.4-10.4); Monocytes # 0.4 K/mm3 (0.1-1.0); Monocytes % 5.2 % (1.7-9.3); Neutrophils # 2.7 K/mm3 (1.8-7.8); Neutrophils % 32.8 % (37.0-80.0); Platelet Count 323 K/mm3 (142-424); Red Blood Count 4.21 M/mm3 (4.20-5.40); Red Cell Distribution Width 13.8 % (11.5-17.5); White Blood Count 8.2 K/mm3 (4.8-10.8)
[2024-10-01 07:24] LABS: MANUAL DIFFERENTIAL MANUAL DIFFERENTIAL (MANUAL DIFF)
[2024-10-01 07:43] LABS: Albumin Level 3.1 g/dl (3.5-5.0); Chloride 106 mmol/L (98-107); Potassium 3.4 mmoL/L (3.5-5.1); Sodium 137 mmol/L (136-145)
[2024-10-01 07:46] LABS: Alanine Aminotransferase 17 U/L (12-78); Albumin/Globulin Ratio 1.5 (1.1-1.8); Alkaline Phosphatase 68 U/L (38-126); Anion Gap 5.4 mEq/L (5-15); Aspartate Amino Transferase 21 U/L (14-36); Bilirubin,Total 0.8 mg/dl (0.2-1.3); Blood Urea Nitrogen 18 mg/dl (7-17); Calcium 8.9 mg/dl (8.4-10.2); Carbon Dioxide 29 mmol/L (22.0-30.0); Cholesterol 159 mg/dl (140-200); Creatinine Clearance Estimated 58 mL/min (50-200); Estimated Glomerular Filt Rate 81 ml/min (>60); GFR (African American) 98 ML/MIN (>60); Globulin 2.1 g/dL (1.3-3.2); Glucose 82 mg/dl (74-100); Magnesium 2.1 mg/dl (1.6-2.3); Total Protein,Serum 5.2 g/dl (6.3-8.2); Triglycerides 175 mg/dl (30-150); VLDL Cholesterol 35 mg/dL (0-40)
[2024-10-01 07:47] LABS: Chol/HDL Ratio 3.3 (1-3.5); HDL Cholesterol 48 mg/dl (40-60); Troponin I 0.17 ng/ml (0.00-0.034)
[2024-10-01 07:57] LABS: Direct LDL Cholesterol 70.56 mg/dL (100-129)
[2024-10-01 08:00] VITALS: BP 126/61; PULSE 66; PULSE 70; RESP 16; TEMP 36.6; O2SAT 97
[2024-10-01 08:20] LABS: Lymphocytes % 61 % (10-50); Monocytes % 7 % (2-9); Neutrophils % 32 % (42-76); Platelet Estimate Normal; RBC Morphology Normal; Total Cells Counted 100
[2024-10-01 09:24] LABS: HCV Ab Non Reactive (Non Reactive)
[2024-10-01] MEDS: HYDROCHLOROTHIAZIDE 12.5 MG PO (09:26)
[2024-10-01] MEDS: OMEPRAZOLE 40 MG 1 EACH PO (09:26)
[2024-10-01] MEDS: LOSARTAN 50 MG 0.5 EACH PO (09:26)
[2024-10-01] MEDS: *PAT OWN MED* ASPIRIN EC 81MG TABLET 81 MG PO (09:26)
[2024-10-01] MEDS: POTASSIUM CHLORIDE 20MEQ TAB 40 MEQ PO (09:27)
[2024-10-01] MEDS: CARVEDILOL 6.25MG TABLET 6.25 MG PO ×2 (09:27→20:41)
[2024-10-01] MEDS: *PAT OWN MED* ISOSORBIDE MONO 30MG TAB.ER.24H 30 MG PO ×2 (09:47→20:41)
[2024-10-01] MEDS: CLOPIDOGREL 75MG TAB 75 MG PO (09:48)
[2024-10-01 12:00] VITALS: BP 127/58; PULSE 60; PULSE 66; RESP 17; TEMP 36.5; O2SAT 98
--- NOTE | 2024-10-01 14:38 | P.PN_ITS ---
Subjective *Date: 10/01/24 *Time: 18:16 Interval history: Still having mild pressure in her back. Denies any dain chest pain. Stable on room air. Would prefer to have our attending radiologist evaluate her then discharged home in try to get in with her attending radiologist. Anxious about her heart. Having headache today. No nausea or vomiting. at bedside, updated on plan. Medical Exam Vital signs and Labs for Last 24 Hours: Vital Signs Temp Pulse Pulse Resp BP Pulse Ox O2 Del Method 10/01/24 14:04 Room Air 10/01/24 12:30 Room Air 10/01/24 12:00 60 10/01/24 12:00 97.7 F 66 17 127/58 L 98 Room Air 10/01/24 09:48 Room Air 10/01/24 08:27 Room Air 10/01/24 08:00 70 10/01/24 08:00 Room Air 10/01/24 08:00 97.9 F 66 16 126/61 97 10/01/24 06:51 Room Air 10/01/24 05:00 Room Air 10/01/24 04:00 50 L 10/01/24 04:00 97.9 F 61 16 118/58 L 97 Room Air 10/01/24 03:00 Room Air 10/01/24 01:00 Room Air 10/01/24 00:00 601 H 09/30/24 23:56 97.5 F L 68 20 116/49 L 98 Room Air 09/30/24 23:00 Room Air 09/30/24 21:00 Room Air 09/30/24 20:00 60 09/30/24 20:00 97 Room Air 09/30/24 20:00 98.2 F 53 L 18 140/65 97 Room Air 09/30/24 18:48 Room Air 09/30/24 16:39 Room Air 09/30/24 16:00 70 09/30/24 16:00 98 F 60 16 134/63 99 Room Air 09/30/24 14:43 Room Air Intake and Output 09/30/24 10/01/24 10/01/24 23:59 07:59 15:59 Intake Total 500 / 1320 720 / 720 Output Total 0 / 0 0 / 0 Balance 500 / 1320 0 / 720 720 / 720 Intake: Intake, Oral Amount 500 / 1320 720 / 720 Output: Output, Urine Amount 0 / 0 0 / 0 Other: Number of Unmeasured Voids 2 1 Weight 77.791 kg Patient Weight 10/01/24 23:59 Weight 77.791 kg Laboratory Results - last 24 hr 09/29/24 21:50: Hepatitis C Antibody Non reactive 09/30/24 18:15: Sodium 135 L, Potassium 3.1 L, Chloride 103, Carbon Dioxide 29, Anion Gap 6.1, BUN 19 H, Creatinine 0.80, Estimated Creat Clear 58, Estimated GFR 70, Est GFR ( Amer) 84, Glucose 123 H D, Calcium 8.8, Total Bilirubin 0.5, AST 23, ALT 19, Alkaline Phosphatase 61, Troponin I 0.30 H, Total Protein 5.3 L, Albumin 3.2 L, Globulin 2.1, Albumin/Globulin Ratio 1.5 10/01/24 06:53: WBC 8.2 D, RBC 4.21, Hgb 12.5, Hct 36.4 L, MCV 86.4, MCH 29.7, MCHC 34.3, RDW 13.8, Plt Count 323, MPV 7.6, Neut % (Auto) 32.8 L, Lymph % (Auto) 58.2 H, Mcn[place] % (Auto) 5.2, Eos % (Auto) 2.4, Baso % (Auto) 1.3, Neut # (A uto) 2.7, Lymph # (Auto) 4.8 H, Mcnairy # (Auto) 0.4, Eos # (Auto) 0.2, Baso # (Auto) 0.1, Total Counted 100, Neutrophils % (Manual) 32 L, Lymphocytes % (Manual) 61 H, Monocytes % (Manual) 7, Platelet Estimate Normal, RBC Morphology Normal, Sodium 137, Potassium 3.4 L, Chloride 106, Carbon Dioxide 29, Anion Gap 5.4, BUN 18 H, Creatinine 0.70, Estimated Creat Clear 58, Estimated GFR 81, Est GFR ( Amer) 98, Glucose 82 D, Calcium 8.9, Magnesium 2.1 D, Total Bilirubin 0.8, AST 21, ALT 17, Alkaline Phosphatase 68, Troponin I 0.17 H, Total Protein 5.2 L, Albumin 3.1 L, Globulin 2.1, Albumin/Globulin Ratio 1.5, Triglycerides 175 H, Cholesterol 159, LDL Cholesterol Direct 70.56 L, VLDL Cholesterol 35, HDL Cholesterol 48, Cholesterol/HDL Ratio 3.3 I & O for Labs for Last 24 Hours: Intake & Output 09/28/24 09/29/24 09/30/24 10/01/24 23:59 23:59 23:59 23:59 Intake Total 1320 / 1320 720 / 720 Output Total 0 / 0 0 / 0 Balance 1320 / 1320 720 / 720 Weight 71.668 kg 78.063 kg 77.791 kg Constitutional: Present no acute distress, average body habitus and cooperative Head: Present atraumatic and normocephalic ENT: Present normal exam Neck: Present normal inspection Respiratory: Present normal respiratory effort; Absent rhonchi, stridor, wheezes or crackles Cardiac: Present Reg Rate and Rhythm GI: Present soft and normal bowel sounds; Absent distention or tenderness Extremities: Present normal inspection and full ROM Skin: Present intact; Absent erythema Neuro: Present Grossly Intact, alert, awake, oriented x 3 and moves all extremities Additional Findings:: Anxious Assessment and Plan *Assessment and plan (1) NSTEMI (non-ST elevated myocardial infarction): Status: Acute Category: Medical Code(s): I21.4 - Non-ST elevation (NSTEMI) myocardial infarction (2) Chest pain: Status: Acute Qualifiers: Chest pain type: unspecified Qualified Code(s): R07.9 - Chest pain, unspecified Category: Medical Code(s): R07.9 - Chest pain, unspecified (3) Hypertension: Status: Acute Category: Medical Code(s): I10 - Essential (primary) hypertension (4) Tachycardia: Status: Acute Category: Medical Code(s): R00.0 - Tachycardia, unspecified (5) Heart palpitations: Status: Acute Category: Medical Code(s): R00.2 - Palpitations (6) GERD (gastroesophageal reflux disease): Status: Acute Category: Medical Code(s): K21.9 - Gastro-esophageal reflux disease without esophagitis (7) Asthma: Status: Acute Category: Medical Code(s): J45.909 - Unspecified asthma, uncomplicated (8) Anxiety: Status: Acute Category: Medical Code(s): F41.9 - Anxiety disorder, unspecified Plan Rachael Fleming is a 79-year-old female with a medical history significant for former Takotsubo cardiomyopathy x 3, sinus arrhythmias, asthma, hypertension, GERD who presents with palpitations and chest pain that began at 7 PM last night. She states she had just returned from eating fried chicken with her family and was sitting in a recliner when she began to feel sudden onset palpitations. Her heart rate was reportedly as high as 140 at home. About 45 minutes later, she began to experience midsternal chest pain with radiation to the back. She and her proceeded to the ED. Workup in the ED significant for WBC 14.2, troponin negative to 0.02. EKG did not show acute ischemic findings CTA did not show PE or dissection, but did show moderate calcification and coronary arteries and allude to possible mild dilatation of CBD and lesion on spleen. Given elevated troponin and chest pain, Dr. Montoya was consulted and recommended admission and trending troponins. Nitro tabs or GI cocktail did not alleviate pain, however morphine did. Case was discussed with ED provider and decision was made to admit patient for persistent chest pain workup. Troponin peaked at 0.3, improving to 0.17 this morning. Continues to require inpatient monitoring. Anticipate eval with cardiology in the morning including echocardiogram and evaluation for possible intervention. Problems addressed as follows: #NSTEMI #Chest pain #History of Takotsubo cardiomyopathy #History of sinus arrhythmias -Blood pressure better controlled, systolics in the 120s to 130s. -Troponins elevated, peaked at 0.3, down to 0.17 this morning. Continue telemetry monitoring. ? Patient does have a history of sinus arrhythmias and is currently on Coreg, follows with cardiology. - Patient records from [facility] reviewed, Findings as follows: Last echo obtained in March of this year with a EF 60% per my review of records from [facility]. Has had 3 known episodes of Takotsubo cardiomyopathy, 97, 08, 16. Recurrent palpitation and tachyarrhythmia. Loop recorder end-of-life earlier this year in December. EF appears to have been normal for the past 7 years per regular echoes in 2016 and 2021 and earlier this year. -Continue Lovenox 1 mg/kg twice daily. -Continue carvedilol to 6.25 mg twice daily. -Continue aspirin 81 mg daily -White count normal 8.2, kidney function normal with BUN 18, creatinine 0.7. LDL 70. -Initiated Plavix 75 mg daily. -Repeat CBC, CMP, magnesium ordered for the morning #Hypertension ? Continue carvedilol 6.25 mg twice daily, HCTZ, losartan 25 mg, isosorbide mononitrate 30 mg twice. #GERD ? Continue PPI Full code DVT prophylaxis: Lovenox 1mg/kg bid Cardiac diet
--- NOTE | 2024-10-01 14:42 | PC.NURSE ---
Pt. aox4, up ad sesar, 's on RA, 20g L W SL, on lovenox, echo ordered.
[2024-10-01] MEDS: ACETAMINOPHEN 325MG TAB 650 MG PO (15:18)
[2024-10-01 16:00] VITALS: BP 132/68; PULSE 60; PULSE 67; RESP 16; TEMP 36.6; O2SAT 99
[2024-10-01 20:00] VITALS: BP 138/69; PULSE 65; PULSE 70; RESP 16; TEMP 36.6; O2SAT 97
[2024-10-02] VITALS (17 sets, daily range): BP systolic 94–157; BP diastolic 54–74; PULSE 50–77; RESP 14–20; TEMP 36.5–36.9; O2SAT 96–100; BMI 27.6
--- NOTE | 2024-10-02 06:33 | PC.NURSE ---
79 yo fe pt is A/O X 4. She has denied further complaints of chest pain or discomfort. She has rested well throughout the night. She has been NPO since MN. NSR on tele, VS WNL for pt.
[2024-10-02 07:16] LABS: Albumin Level 3.4 g/dl (3.5-5.0)
[2024-10-02 07:17] LABS: Chloride 106 mmol/L (98-107); Potassium 3.7 mmoL/L (3.5-5.1); Sodium 136 mmol/L (136-145)
[2024-10-02 07:19] LABS: Alanine Aminotransferase 20 U/L (12-78); Alkaline Phosphatase 69 U/L (38-126); Anion Gap 5.7 mEq/L (5-15); Aspartate Amino Transferase 27 U/L (14-36); Bilirubin,Total 0.7 mg/dl (0.2-1.3); Blood Urea Nitrogen 14 mg/dl (7-17); Carbon Dioxide 28 mmol/L (22.0-30.0); Creatinine Clearance Estimated 58 mL/min (50-200); Estimated Glomerular Filt Rate 70 ml/min (>60); GFR (African American) 84 ML/MIN (>60)
[2024-10-02 07:20] LABS: Albumin/Globulin Ratio 1.5 (1.1-1.8); Calcium 9.2 mg/dl (8.4-10.2); Chol/HDL Ratio 3.7 (1-3.5); Cholesterol 178 mg/dl (140-200); Globulin 2.2 g/dL (1.3-3.2); Glucose 96 mg/dl (74-100); HDL Cholesterol 48 mg/dl (40-60); Magnesium 2.1 mg/dl (1.6-2.3); Total Protein,Serum 5.6 g/dl (6.3-8.2); Triglycerides 134 mg/dl (30-150); VLDL Cholesterol 27 mg/dL (0-40)
[2024-10-02 07:22] LABS: Basophils % 0.6 % (0.1-2.0); Eosinophils # 0.3 K/mm3 (0.0-0.4); Eosinophils % 4.2 % (0.1-12.0); Hematocrit 38.2 % (37.0-47.0); Hemoglobin 12.9 g/dL (12.2-16.2); Lymphocytes # 3.1 K/mm3 (0.7-4.5); Lymphocytes % 45.9 % (10-50); Mean Corpuscular HGB Conc 33.7 g/dL (31.8-35.4); Mean Corpuscular Hemoglobin 29.2 pg (27.0-31.2); Mean Corpuscular Volume 86.5 fl (81-99); Mean Platelet Volume 7.5 fl (7.4-10.4); Monocytes # 0.6 K/mm3 (0.1-1.0); Monocytes % 8.4 % (1.7-9.3); Neutrophils # 2.8 K/mm3 (1.8-7.8); Neutrophils % 40.9 % (37.0-80.0); Platelet Count 306 K/mm3 (142-424); Red Blood Count 4.42 M/mm3 (4.20-5.40); Red Cell Distribution Width 13.6 % (11.5-17.5); White Blood Count 6.8 K/mm3 (4.8-10.8)
[2024-10-02 07:31] LABS: Direct LDL Cholesterol 84.06 mg/dL (100-129)
[2024-10-02] MEDS: LOSARTAN 50 MG 0.5 EACH PO (09:15)
[2024-10-02] MEDS: *PAT OWN MED* ISOSORBIDE MONO 30MG TAB.ER.24H 30 MG PO (09:15)
[2024-10-02] MEDS: OMEPRAZOLE 40 MG 1 EACH PO (09:15)
[2024-10-02] MEDS: HYDROCHLOROTHIAZIDE 12.5 MG PO (09:15)
[2024-10-02] MEDS: CLOPIDOGREL 75MG TAB 75 MG PO (09:16)
[2024-10-02] MEDS: CARVEDILOL 6.25MG TABLET 6.25 MG PO (09:16)
[2024-10-02] MEDS: *PAT OWN MED* ASPIRIN EC 81MG TABLET 81 MG PO (09:16)
--- NOTE | 2024-10-02 09:24 | EXP.CARD.CON ---
History of Present Illness History of Present Illness Consult date: 10/02/24 Requesting physician: Momo Hernandez Consult reason: chest pain Chief complaint: chest pain, NSTEMI Additional Medical History:: 1. History of Takotsubo cardiomyopathy x 3, 1998, 2008 in 2016 A. History of cardiac catheterization x 2 without need for intervention B. History of prior evaluation and [place] and [facility] C. 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 Echocardiogram from March 2024, EF 60%. 2. History of cardiac arrhythmia A. History of EP evaluation without need for ablation B. History of loop recorder with battery depletion earlier this year, 2023 3. History of anxiety 4. Arthritis of bilateral knees 5. Hypertension History of present illness: Rachael Fleming is a 79-year-old female with a medical history significant for former Takotsubo cardiomyopathy x 3, sinus arrhythmias, asthma, hypertension, GERD who presents with palpitations and chest pain that began at 7 PM last night. She states she had just returned from eating fried chicken with her family and was sitting in a recliner when she began to feel sudden onset palpitations. Her heart rate was reportedly as high as 140 at home. About 45 minutes later, she began to experience midsternal chest pain with radiation to the back. She and her proceeded to the ED. Workup in the ED significant for WBC 14.2, troponin negative to 0.02. EKG did not show acute ischemic findings CTA did not show PE or dissection, but did allude to possible mild dilatation of CBD and lesion on spleen. Given elevated troponin and chest pain, Dr. Montoya was consulted and recommended admission and trending troponins. Nitro tabs or GI cocktail did not alleviate pain, however morphine did. Case was discussed with ED provider and decision was made to admit patient for persistent chest pain workup. The above per Dr. Hernandez Events as noted above confirmed with the patient and family including and daughter. Prior episodes of Takotsubo cardiomyopathy likely related to stress. Recently however patient was treated for what sounds like an upper respiratory infection with antibiotics and prednisone. Patient was noted to be markedly hypertensive in the ER with blood pressure 226/128 mmHg at peak. EKG is sinus rhythm with no acute ST segment changes. CTA of the chest this admission shows evidence of moderate coronary artery disease. Troponin max this admission was 0.3. Preliminary echocardiogram shows ejection fraction around 50%. Discussed results with Dr. Wells and in light of the patient's non-STEMI would recommend proceeding with cardiac catheterization for further evaluation. [facility] Disclaimer: The information contained in this section may have been updated after the patient was seen, as this information can be updated by other users. Medical History Asthma Insomnia Anxiety Hypertension Tachycardia Cardiomyopathy Surgical History History of colonoscopy History of hysterectomy H/O lumpectomy Family History Father Coronary artery disease Heart attack Hypertension Grandfather Coronary artery disease Heart attack Grandmother Diabetes Stroke Thyroid disorder Mother Stroke Sister Cancer Social History (Updated 09/30/24 @ 02:58 by Tiffany Mina RN) Smoking Status: Never smoker years smoked: 4 smoking status stop date: 11/01/1969 alcohol intake: never current occupational status: retired Travel in the last 8 weeks: None household members: spouse housing: house Review of Systems Review of Systems Review of systems:: pertinent systems reviewed and negative unless documented below *Cardiovascular Cardiovascular: Reports chest pain and Reports palpitations Endocrine Endocrine: Reports palpitations Exam Data for Last 24 hours Vital signs and Labs for Last 24 Hours: Temp Pulse Resp BP Pulse Ox O2 Del Method 98.5 F 65 16 141/71 H 98 Room Air 10/02/24 07:47 10/02/24 07:47 10/02/24 07:47 10/02/24 07:47 10/02/24 07:47 10/02/24 07:47 Laboratory Results - last 24 hr 09/29/24 21:50: Hepatitis C Antibody Non reactive 10/02/24 05:54: WBC 6.8, RBC 4.42, Hgb 12.9, Hct 38.2, MCV 86.5, MCH 29.2, MCHC 33.7, RDW 13.6, Plt Count 306, MPV 7.5, Neut % (Auto) 40.9, Lymph % (Auto) 45.9, [place] % (Auto) 8.4, Eos % (Auto) 4.2, Baso % (Auto) 0.6, Neut # (Auto) 2.8, Lymph # (Auto) 3.1, [place] # (Auto) 0.6, Eos # (Auto) 0.3, Baso # (Auto) 0.0, Sodium 136, Potassium 3.7, Chloride 106, Carbon Dioxide 28, Anion Gap 5.7, BUN 14, Creatinine 0.80, Estimated Creat Clear 58, Estimated GFR 70, Est GFR ( Amer) 84, Glucose 96, Calcium 9.2, Magnesium 2.1, Total Bilirubin 0.7, AST 27 D, ALT 20, Alkaline Phosphatase 69, Total Protein 5.6 L, Albumin 3.4 L, Globulin 2.2, Albumin/Globulin Ratio 1.5, Triglycerides 134, Cholesterol 178, LDL Cholesterol Direct 84.06 L, VLDL Cholesterol 27, HDL Cholesterol 48, Cholesterol/HDL Ratio 3.7 H I & O for Last 24 hours: Intake & Output 09/29/24 09/30/24 10/01/24 10/02/24 11:59 11:59 11:59 11:59 Intake Total 320 / 320 1240 / 1240 480 / 480 Output Total 0 / 0 0 / 0 0 / 0 Balance 320 / 320 1240 / 1240 480 / 480 Weight 172 lb 1.6 oz 171 lb 8 oz 171 lb 7.997 oz Constitutional Constitutional: no acute distress *Routine Respiratory Exam Respiratory: Present CTA bilaterally; Absent rhonchi or wheezes *Routine Cardiovascular Exam Cardiovascular: Present RRR; Absent murmur, gallop or rubs *Routine Extremities Exam Extremities: Absent edema Meds Home Medications and Allergies Home Medications ?Medication ?Instructions ?Recorded ?Confirmed ?Type aspirin 81 mg tablet,delayed 81 mg PO DAILY 01/28/18 09/30/24 History release (Aspir-) nitroglycerin 0.4 mg sublingual 0.4 mg sublingual Q5MINP PRN Chest 01/29/18 09/30/24 History tablet (Nitrostat) Pain alprazolam 0.25 mg tablet 0.25 mg PO DAILYP PRN Anxiety #30 03/24/23 09/30/24 Rx tabs isosorbide mononitrate 30 mg 30 mg PO BID hypertension 90 days 09/15/23 09/30/24 Rx tablet,extended release 24 hr #180 tabs losartan 50 mg tablet 25 mg (1/2 x 50 mg) PO DAILY HTN 09/15/23 09/30/24 Rx 90 days #45 tabs omeprazole 40 mg capsule,delayed 40 mg PO DAILY GERD #90 caps 11/23/23 09/30/24 Rx release hydrochlorothiazide 12.5 mg capsule 12.5 mg PO DAILY hypertension 90 04/20/24 09/30/24 Rx days #90 caps albuterol sulfate 90 mcg/actuation 2 puff inhalation Q6HP PRN 09/30/24 09/30/24 History aerosol inhaler shortness of breath or wheezing fluticasone propionate 50 1 spray intranasal DAILY 09/30/24 09/30/24 History mcg/actuation nasal spray,suspension (Flonase Allergy Relief) loratadine 10 mg tablet 10 mg PO DAILY 09/30/24 09/30/24 History zolpidem 5 mg tablet (Ambien) 5 mg PO HSP PRN Sleep 09/30/24 09/30/24 History carvedilol 6.25 mg tablet 6.25 mg PO BID 30 days #60 tabs 10/02/24 Rx clopidogrel 75 mg tablet 75 mg PO DAILY 30 days #30 tabs 10/02/24 Rx New Prescriptions to Start Prescriptions: carvedilol Momo Hernandez clopidogrel Momo Hernandez Allergies Allergy/AdvReac Type Severity Reaction Status Date / Time Penicillins (PENICILLINS) Allergy Mild Verified 09/19/24 13:57 promethazine (PROMETHAZINE) Allergy Mild Verified 09/19/24 13:57 pseudoephedrine (From Allergy Mild Verified 09/19/24 13:57 SUDAFED) Sulfa (Sulfonamide Allergy Mild Verified 09/19/24 13:57 Antibiotics) (SULFA (SULFONAMIDE ANTIBIOTICS)) diclofenac (From Voltaren) Allergy Rash Verified 09/19/24 13:57 azithromycin AdvReac Intermediate Gastrointestinal Verified 09/19/24 13:57 Upset cephalexin AdvReac Intermediate Gastrointestinal Verified 09/19/24 13:57 Upset statins AdvReac Severe muscle Uncoded 09/19/24 13:57 cramps Assessment and Plan *Assessment and plan (1) NSTEMI (non-ST elevated myocardial infarction): Status: Acute Category: Medical Code(s): I21.4 - Non-ST elevation (NSTEMI) myocardial infarction (2) Heart palpitations: Status: Acute Category: Medical Code(s): R00.2 - Palpitations (3) Hypertension: Status: Acute Qualifiers: Hypertension type: primary hypertension Qualified Code(s): I10 - Essential (primary) hypertension Category: Medical Code(s): I10 - Essential (primary) hypertension (4) Hyperlipidemia: Status: Acute Qualifiers: Hyperlipidemia type: mixed hyperlipidemia Qualified Code(s): E78.2 - Mixed hyperlipidemia Category: Medical Code(s): E78.5 - Hyperlipidemia, unspecified (5) GERD (gastroesophageal reflux disease): Status: Acute Qualifiers: Esophagitis presence: esophagitis presence not specified Qualified Code(s): K21.9 - Gastro-esophageal reflux disease without esophagitis Category: Medical Code(s): K21.9 - Gastro-esophageal reflux disease without esophagitis Plan 1. Non-STEMI -Continue aspirin and Plavix -Continue carvedilol and losartan along with isosorbide -Proceed with cardiac catheterization with further recommendations to follow -Echocardiogram results pending but preliminary EF around 50% 2. Palpitations -Continue beta-gail therapy -Recent TSH normal 3. Hypertension with hypertensive urgency in the ER -Continue to monitor blood pressure on increase carvedilol dose 4. Anxiety 5. Hyperlipidemia with coronary artery disease on CT of the chest -Patient has listed allergy to statin due to muscle cramps -Consider Repatha 6. GERD -Continue PPI therapy Cardiac catheterization with further recommendations to follow Cardiac cath undertaken with placement of 1 drug-eluting stent to mid LAD. Clinically stable from a cardiac standpoint for discharge home once wrist tracelet is removed. Home medication recommendations Carvedilol 6.25 mg twice daily Aspirin 81 mg daily Plavix 75 mg daily Hydrochlorothiazide 12.5 mg daily Losartan 25 mg daily Stop isosorbide mononitrate Nitroglycerin sublingual as needed Patient is intolerant to statin therapy. Will consider Repatha or Leqvio as an outpatient. Follow-up in our office in 1 to 2 weeks.
--- NOTE | 2024-10-02 09:27 | IR_ITS ---
APPROVED REPORT Patient Location: Inpatient Turnaround Planner: MARCELLUS Beckman RT (R) PROCEDURES Selective coronary angiogram Drug-eluting stent deployment to the mid LAD INDICATION Acute non-ST elevation myocardial infarction, Coronary artery disease Informed consent was obtained prior to the procedure. COMPLICATIONS NONE Estimated Blood Loss: LESS THAN 10 ML TECHNIQUE One percent lidocaine used to anesthetize the right anterior aspect of the wrist. The right radial artery was accessed via the Seldinger technique. A 6 Taiwanese sheath was placed in the right radial artery. 2.5 mg of Verapamil, 800 mcg of nitroglycerin, 1mg Lidocaine and 5000 U Heparin were given through the arterial sheath. The 6 Taiwanese JL 3 guide catheter was used to perform selective coronary angiogram. At the end the diagnostic angiogram therapeutic heparin was administered giving a therapeutic ACT and the guide catheter was placed in left main artery followed by Choice PT extra-support wire placed into the distal LAD. A 3 mm x 34 mm Shayan frontier stent was deployed at 15 alberto in the mid LAD reducing the culprit lesion to 0%. DARREN-3 flow was present before and after the procedure. At the end the procedure the apparatus was removed the sheath was removed and hemostasis was achieved using TR banding patient was transferred to the postop putting in stable condition ANGIOGRAPHIC RESULTS The left main artery Normal The left anterior descending artery Has proximal eccentric 10 to 20% stenosis followed by mid vessel hazy 50% lesion followed by an eccentric 30% stenosis followed by an additional 40% concentric stenosis. There is an additional nonflow limiting 30% stenosis along a tortuous bend The circumflex artery is codominant and normal The right coronary artery Is codominant and has smooth mid vessel 10 to 20% stenoses The [place] ventriculogram reveals Not performed The left ventricular end-diastolic pressure Not measured IMPRESSION Mid LAD stenosis which is the culprit for the non-STEMI Successful stenting of the mid LAD severe disease reduced to 0% with 1 drug-eluting stent PLAN 1. Dual antiplatelet therapy 2. Cardiac rehabilitation 3. Avoidance of tobacco products 4. Risk factor modification Electronically signed by : Devon Montoya MD 10/02/2024 11:19:38
[2024-10-02 10:05] LABS: Chloride 104 mmol/L (98-107); Potassium 3.9 mmoL/L (3.5-5.1); Sodium 137 mmol/L (136-145)
[2024-10-02 10:08] LABS: Anion Gap 6.9 mEq/L (5-15); Blood Urea Nitrogen 13 mg/dl (7-17); Calcium 9.4 mg/dl (8.4-10.2); Carbon Dioxide 30 mmol/L (22.0-30.0); Creatinine Clearance Estimated 58 mL/min (50-200); Estimated Glomerular Filt Rate 81 ml/min (>60); GFR (African American) 98 ML/MIN (>60); Glucose 111 mg/dl (74-100)
[2024-10-02] MEDS: HEPARIN 1,000 UNITS/ML 10ML VIAL (CATH LAB) 10000 UNIT IV (10:55)
[2024-10-02] MEDS: diphenhydrAMINE 50MG/ML VIAL 50 MG IV (10:55)
[2024-10-02] MEDS: VERAPAMIL 2.5MG/ML 2ML VIAL 2.5 MG IV (10:55)
[2024-10-02] MEDS: NITROGLYCERIN 800MCG/8ML SYR (CATH LAB) 800 MCG IA (10:55)
[2024-10-02] MEDS: 0.9 % SODIUM CHLORIDE 500 ML 25 ML IV (10:55)
[2024-10-02] MEDS: HEPARIN 1,000 UNITS/500ML NS (CATH LAB) 3000 UNIT IV (10:56)
[2024-10-02] MEDS: FENTANYL 100MCG/2ML VIAL 50 MCG IV (10:56)
[2024-10-02] MEDS: MIDAZOLAM HCL 1MG/ML 5ML VIAL 1 MG IV (10:56)
[2024-10-02] MEDS: IOPAMIDOL-370 (76%);100ML BOTTLE 50 ML IV (11:49)
[2024-10-02 11:51] LABS: CATHL Activated Clotting Time > 400 SEC (74-125)
--- NOTE | 2024-10-02 12:25 | EXP.DC.SUM ---
General Admission date:: 09/30/24 Discharge date: 10/02/24 HPI HPI HPI: Rachael Fleming is a 79-year-old female with a medical history significant for former Takotsubo cardiomyopathy x 3, sinus arrhythmias, asthma, hypertension, GERD who presents with palpitations and chest pain that began at 7 PM last night. She states she had just returned from eating fried chicken with her family and was sitting in a recliner when she began to feel sudden onset palpitations. Her heart rate was reportedly as high as 140 at home. About 45 minutes later, she began to experience midsternal chest pain with radiation to the back. She and her proceeded to the ED. Workup in the ED significant for WBC 14.2, troponin negative to 0.02. EKG did not show acute ischemic findings CTA did not show PE or dissection, but did allude to possible mild dilatation of CBD and lesion on spleen. Given elevated troponin and chest pain, Dr. Montoya was consulted and recommended admission and trending troponins. Nitro tabs or GI cocktail did not alleviate pain, however morphine did. Case was discussed with ED provider and decision was made to admit patient for persistent chest pain workup. Hospital Course Hospital Course Hospital Course: Rachael Fleming is a 79-year-old female with a medical history significant for former Takotsubo cardiomyopathy x 3, sinus arrhythmias, asthma, hypertension, GERD who presents with palpitations and chest pain that began at 7 PM last night. She states she had just returned from eating fried chicken with her family and was sitting in a recliner when she began to feel sudden onset palpitations. Her heart rate was reportedly as high as 140 at home. About 45 minutes later, she began to experience midsternal chest pain with radiation to the back. She and her proceeded to the ED. Workup in the ED significant for WBC 14.2, troponin negative to 0.02. EKG did not show acute ischemic findings CTA did not show PE or dissection, but did show moderate calcification and coronary arteries and allude to possible mild dilatation of CBD and lesion on spleen. Given elevated troponin and chest pain, Dr. Montoya was consulted and recommended admission and trending troponins. Nitro tabs or GI cocktail did not alleviate pain, however morphine did. Case was discussed with ED provider and decision was made to admit patient for persistent chest pain workup. Serial troponins peaked at 0.3. Trended down with medical management. Patient was taken to the Director Diabetes for evaluation, found to have mid LAD stenosis necessitating a drug-eluting stent. Symptoms improved. Further management as an outpatient for both her coronary artery disease, history of cardiomyopathy, and concern for anxiety. Stable to discharge home. Problems addressed as follows: Troponin peaked at 0.3, improving to 0.17 this morning. Continues to require inpatient monitoring. Anticipate eval with cardiology in the morning including echocardiogram and evaluation for possible intervention. Problems addressed as follows: #NSTEMI #Chest pain #History of Takotsubo cardiomyopathy #History of sinus arrhythmias -Patient admitted for chest pressure. Received some improvement with pain control including morphine. Was monitored with serial troponins, peaked at 0.3. Showed gradual improvement. Continued medical management including Lovenox, aspirin, Plavix. Cardiology was consulted. Decision was made to take patient for left heart cath. She was found to have mid LAD stenosis which was likely the culprit for her NSTEMI. Successful stenting with 1 drug-eluting stent. Blood pressure remained controlled during admission the patient was concerned about her blood pressure being higher than normal at home. Per history, has extensive history of multiple episodes of Takotsubo cardiomyopathy. Reviewed records from [facility] with the following findings: Last echo obtained in March of this year with a EF 60% per my review of records from [facility]. Has had 3 known episodes of Takotsubo cardiomyopathy, 97, 08, 16. Recurrent palpitation and tachyarrhythmia. Loop recorder end-of-life earlier this year in December. EF appears to have been normal for the past 7 years per regular echoes in 2016 and 2021 and earlier this year. -Treated with Lovenox 1 mg/kg twice daily during admission. Carvedilol was adjusted to 6.25 mg twice daily. Will continue aspirin 81 mg daily. Continue Plavix 75 mg daily. Patient overall doing well during admission with resolution of chest pain. Echo obtained during admission showing EF 55%. Noted to have mitral regurg is mild to moderate. Appears stable. -Recent TSH normal Anxiety: Extensive discussion about possible anxiety the patient on day of discharge. Will refer to psychiatry after discharge to talk about further management. Patient gets very anxious in regard to her health, perseverates extensively on her symptoms. Has had significant stressors in conjunction with her previous episodes of cardiomyopathy. #Hypertension ? Continue carvedilol 6.25 mg twice daily, HCTZ, losartan 25 mg, isosorbide mononitrate 30 mg twice. #GERD ? Continue PPI Total time spent on discharge 36 minutes in counseling, documentation, chart review, and direct care with patient. Exam Data for Last 24 hours Vital signs and Labs for Last 24 Hours: Temp Pulse Resp BP Pulse Ox O2 Del Method 98.5 F 63 20 123/69 100 Room Air 10/02/24 07:47 10/02/24 11:50 10/02/24 11:50 10/02/24 11:50 10/02/24 11:50 10/02/24 11:50 Laboratory Results - last 24 hr 10/02/24 05:54: WBC 6.8, RBC 4.42, Hgb 12.9, Hct 38.2, MCV 86.5, MCH 29.2, MCHC 33.7, RDW 13.6, Plt Count 306, MPV 7.5, Neut % (Auto) 40.9, Lymph % (Auto) 45.9, [place] % (Auto) 8.4, Eos % (Auto) 4.2, Baso % (Auto) 0.6, Neut # (Auto) 2.8, Lymph # (Auto) 3.1, [place] # (Auto) 0.6, Eos # (Auto) 0.3, Baso # (Auto) 0.0, Sodium 136, Potassium 3.7, Chloride 106, Carbon Dioxide 28, Anion Gap 5.7, BUN 14, Creatinine 0.80, Estimated Creat Clear 58, Estimated GFR 70, Est GFR ( Amer) 84, Glucose 96, Calcium 9.2, Magnesium 2.1, Total Bilirubin 0.7, AST 27 D, ALT 20, Alkaline Phosphatase 69, Total Protein 5.6 L, Albumin 3.4 L, Globulin 2.2, Albumin/Globulin Ratio 1.5, Triglycerides 134, Cholesterol 178, LDL Cholesterol Direct 84.06 L, VLDL Cholesterol 27, HDL Cholesterol 48, Cholesterol/HDL Ratio 3.7 H 10/02/24 09:48: Sodium 137, Potassium 3.9, Chloride 104, Carbon Dioxide 30, Anion Gap 6.9, BUN 13, Creatinine 0.70, Estimated Creat Clear 58, Estimated GFR 81, Est GFR ( Amer) 98, Glucose 111 H, Calcium 9.4 10/02/24 12:00: Activated Clotting Time > 400 H* I & O for Last 24 hours: Intake & Output 09/29/24 09/30/24 10/01/24 10/02/24 23:59 23:59 23:59 23:59 Intake Total 1320 / 1320 720 / 720 Output Total 0 / 0 0 / 0 0 / 0 Balance 1320 / 1320 720 / 720 0 / 0 Weight 71.668 kg 78.063 kg 77.791 kg 77.791 kg Constitutional Constitutional: no acute distress and chronically ill appearing *Routine HEENT Exam Head: Present normocephalic Eye: Present EOMI and PERRL ENT: Present mucous membranes moist *Routine Neck Exam Neck: Present supple; Absent lymphadenopathy *Routine Respiratory Exam Respiratory: Present CTA bilaterally *Routine Cardiovascular Exam Cardiovascular: Present RRR *Routine Abdominal Exam Abdominal: Present soft and normoactive bowel sounds; Absent tenderness *Routine Extremities Exam Extremities: Absent cyanosis, clubbing or edema *Routine Skin Exam Skin: Present warm; Absent rash *Routine Neurological Exam Neurological: Present alert and oriented X3 Results Data Completed and Pending Labs on day of discharge: Labs from last 24 hours 10/02/24 10/02/24 10/02/24 12:00 09:48 05:54 WBC 6.8 RBC 4.42 Hgb 12.9 Hct 38.2 MCV 86.5 MCH 29.2 MCHC 33.7 RDW 13.6 Plt Count 306 MPV 7.5 Neut % (Auto) 40.9 Lymph % (Auto) 45.9 [place] % (Auto) 8.4 Eos % (Auto) 4.2 Baso % (Auto) 0.6 Neut # (Auto) 2.8 Lymph # (Auto) 3.1 [place] # (Auto) 0.6 Eos # (Auto) 0.3 Baso # (Auto) 0.0 Activated Clotting Time > 400 H* Sodium 137 136 Potassium 3.9 3.7 Chloride 104 106 Carbon Dioxide 30 28 Anion Gap 6.9 5.7 BUN 13 14 Creatinine 0.70 0.80 Estimated Creat Clear 58 58 Estimated GFR 81 70 Est GFR ( Amer) 98 84 Glucose 111 H 96 Calcium 9.4 9.2 Magnesium 2.1 Total Bilirubin 0.7 AST 27 D ALT 20 Alkaline Phosphatase 69 Total Protein 5.6 L Albumin 3.4 L Globulin 2.2 Albumin/Globulin Ratio 1.5 Triglycerides 134 Cholesterol 178 LDL Cholesterol Direct 84.06 L VLDL Cholesterol 27 HDL Cholesterol 48 Cholesterol/HDL Ratio 3.7 H DS: Diagnosis Discharge Diagnosis (1) NSTEMI (non-ST elevated myocardial infarction): Status: Acute Code(s): I21.4 - Non-ST elevation (NSTEMI) myocardial infarction (2) Heart palpitations: Status: Acute Code(s): R00.2 - Palpitations (3) Hypertension: Status: Acute Code(s): I10 - Essential (primary) hypertension Qualifiers: Hypertension type: primary hypertension Qualified Code(s): I10 - Essential (primary) hypertension (4) Hyperlipidemia: Status: Acute Code(s): E78.5 - Hyperlipidemia, unspecified Qualifiers: Hyperlipidemia type: mixed hyperlipidemia Qualified Code(s): E78.2 - Mixed hyperlipidemia (5) GERD (gastroesophageal reflux disease): Status: Acute Code(s): K21.9 - Gastro-esophageal reflux disease without esophagitis Qualifiers: Esophagitis presence: esophagitis presence not specified Qualified Code(s): K21.9 - Gastro-esophageal reflux disease without esophagitis Meds Home Medications and Allergies Home Medications ?Medication ?Instructions ?Recorded ?Confirmed ?Type alprazolam 0.25 mg tablet 0.25 mg PO DAILYP PRN Anxiety #30 03/24/23 10/11/24 Rx tabs losartan 50 mg tablet 25 mg (1/2 x 50 mg) PO DAILY HTN 09/15/23 10/11/24 Rx 90 days #45 tabs albuterol sulfate 90 mcg/actuation 2 puff inhalation Q6HP PRN 09/30/24 10/11/24 History aerosol inhaler shortness of breath or wheezing fluticasone propionate 50 1 spray intranasal DAILY 09/30/24 10/11/24 History mcg/actuation nasal spray,suspension (Flonase Allergy Relief) loratadine 10 mg tablet 10 mg PO DAILY 09/30/24 10/11/24 History zolpidem 5 mg tablet (Ambien) 5 mg PO HSP PRN Sleep 09/30/24 10/11/24 History nitroglycerin 0.4 mg sublingual 0.4 mg sublingual Q5MINP PRN Chest 10/03/24 10/11/24 Rx tablet (Nitrostat) Pain #25 tabs aspirin 81 mg tablet,delayed 81 mg PO DAILY #90 tabs 10/11/24 10/11/24 Rx release carvedilol 3.125 mg tablet 3.125 mg PO BID 90 days #180 tabs 10/11/24 10/11/24 Rx clopidogrel 75 mg tablet 75 mg PO DAILY #90 tabs 10/11/24 10/11/24 Rx hydrochlorothiazide 12.5 mg capsule 12.5 mg PO DAILY hypertension 90 10/11/24 10/11/24 Rx days #90 caps isosorbide mononitrate 30 mg 30 mg PO BID hypertension 90 days 10/11/24 10/11/24 Rx tablet,extended release 24 hr #180 tabs pantoprazole 40 mg tablet,delayed 40 mg PO DAILY #90 tabs 10/11/24 10/11/24 Rx release (Protonix) New Prescriptions to Start Prescriptions: Allergies Allergy/AdvReac Type Severity Reaction Status Date / Time Penicillins (PENICILLINS) Allergy Mild Verified 10/11/24 14:02 promethazine (PROMETHAZINE) Allergy Mild Verified 10/11/24 14:02 pseudoephedrine (From Allergy Mild Verified 10/11/24 14:02 SUDAFED) Sulfa (Sulfonamide Allergy Mild Verified 10/11/24 14:02 Antibiotics) (SULFA (SULFONAMIDE ANTIBIOTICS)) diclofenac (From Voltaren) Allergy Rash Verified 10/11/24 14:02 azithromycin AdvReac Intermediate Gastrointestinal Verified 10/11/24 14:02 Upset cephalexin AdvReac Intermediate Gastrointestinal Verified 10/11/24 14:02 Upset statins AdvReac Severe muscle Uncoded 10/11/24 14:02 cramps Discharge Plan Disposition Patient Disposition: Home, Self-Care Condition: Fair Discharge Order Discharge Orders: Discharge Order (Routine); Ordered 10/02/24 Ordered By: Momo Hernandez Follow up Plan Follow up with: Franko Juarez MD [Primary Care Provider] - 10/09/24 10:30 am Yue James APRN [Nurse Practitioner] - 11/06/24 2:00 pm Devon Montoya MD [Staff Physician] - 10/11/24 2:15 pm Prescriptions/Medication Reconciliation: Continued losartan 50 mg tablet 25 mg PO DAILY 90 Days Qty: 45 1RF alprazolam 0.25 mg tablet 0.25 mg PO DAILYP PRN (Reason: Anxiety) Qty: 30 2RF loratadine 10 mg Tablet 10 mg PO DAILY zolpidem [Ambien] 5 mg tablet 5 mg PO HSP PRN (Reason: Sleep) albuterol sulfate 90 mcg/actuation HFA aerosol inhaler 2 puff inhalation Q6HP PRN (Reason: shortness of breath or wheezing) fluticasone propionate [Flonase Allergy Relief] 50 mcg/actuation spray,suspension 1 spray intranasal DAILY Rx Instructions: administer into each nostril Discontinued carvedilol 3.125 mg tablet 3.125 mg PO BID 90 Days Qty: 180 1RF prednisone 50 mg tablet 50 mg PO DAILY Qty: 7 0RF No Action aspirin 81 mg tablet,delayed release (DR/EC) 81 mg PO DAILY Qty: 90 3RF carvedilol 3.125 mg tablet 3.125 mg PO BID 90 Days Qty: 180 3RF clopidogrel 75 mg tablet 75 mg PO DAILY Qty: 90 3RF hydrochlorothiazide 12.5 mg capsule 12.5 mg PO DAILY 90 Days Qty: 90 3RF isosorbide mononitrate 30 mg tablet extended release 24 hr 30 mg PO BID 90 Days Qty: 180 3RF pantoprazole [Protonix] 40 mg tablet,delayed release (DR/EC) 40 mg PO DAILY Qty: 90 3RF nitroglycerin [Nitrostat] 0.4 mg tablet, sublingual 0.4 mg sublingual Q5MINP PRN (Reason: Chest Pain) Qty: 25 0RF Problem Reconciliation Problems Reviewed?: Yes Patient Discharge Instructions ACTIVITY: Continue current activity DIET: continue same diet Patient Instructions: DI for Heart Attack, DI for Angina Print Language: Panamanian Providers Primary Care Provider: Franko Juarez Admit Provider: José Miguel Craig Attending Provider: José Miguel Craig
--- OUTSIDE RECORDS SUMMARY | 2024-10-02 13:08 | XMS_ITS | Encounter Summary ---
Author Organization [facility] Address [address] [place] [address] Care Team Providers Care Development Professional Name Role Phone Franko Juarez MD Primary Care Provider [phone]- [phone] Reason for Visit * Reason Comments Precordial chest pain Encounter Details Date Type Department Care Team (Late st Contact Info) Description 01/10/2024 9:00 AM EDT Office Visit [facility] [address] [place] [address] Abebe Diego MD [address] [facility] [address] [place] [address] Precordial chest pain (Primary Dx); History of Takotsubo cardiomyopathy; Essential hypertension; Dyslipidemia Social History Tobacco Use Types Packs/Day Years Used Date Smoking Tobacco: Never Passive Smoke Exposure: Past Smokeless Tobacco: Never Alcohol Use Standard Drinks/Week Comments Not Currently 0 (1 standard drink = 0.6 oz pur e alcohol) PHQ-2 Answer Date Recorded Retired PHQ-9: Brief Depression Severity Measure Score 0 07/22/2022 Abuse Screen Answer Date Recorded Feels Unsafe at Home or Work/School no 08/19/2022 Feels Threatened by Someone no 08/01 Does Anyone Try to Keep You From Having Contact with Others or Doing Things Outside Your Home? no 08/19/2022 Physical Signs of Abuse Present no 08/19/2022 Comments No Sex and Gender Information Value Date Recorded Sex Assigned at Not on file Legal Sex Female 10:27 AM EDT Gender Identity Not on file Sexual Orientation Not on file Occupation Industry Job Start Date Job End Date Retired Not on file Not on file Not on file documented as of this encounter Last Filed Vital Signs Vital Sign Reading Time Taken Comments Blood Pressure 126/76 01/10/2024 8:50 AM EDT Pulse 88 01/10/2024 8:50 AM EDT Temperature - - Respiratory Rate - - Oxygen Saturation 98% 01/10/2024 8:50 AM EDT Inhaled Oxygen Concentration - - Weight 77.1 kg (170 lb) 01/10/2024 8:50 AM EDT Height 167.6 cm (5' 6 ) 01/10/2024 8:50 AM EDT Body Mass Index 27.44 01/10/2024 8:50 AM EDT documented in this encounter Progress Notes * Abebe Diego MD - 01/10/2024 9:00 AM EDT [facility] Cardiology Subjective: Encounter Date: 01/10/2024 Patient ID: Rachael Fleming is a 78 y.o. female. Chief Complaint: Precordial chest pain PROBLEM LIST: Takotsubo cardiomyopathy, 3 known episodes (1996, 2007, 2015): Initial diagnosis (1996) with subsequent recovery. [facility], 08/1997: Normal EF. Normal coronary arteries. Recurrence with diagnosis of Takotsubo syndrome (2007) at the [facility]. C, 06/2008: EF 20%. No significant coronary artery disease. Echo, 01/2009: EF 55%. [facility], 10/26/2016: EF 20%. Takotsubo/stress-induced cardiomyopathy with severe LV systolic dysfunction. Near normal coronary arteries. Echo, 10/28/2016: EF 41%. Findings consistent with stress-induced (Takotsubo) cardiomyopathy. Mild MR, mild TR. Echo, 12/21/2016: EF normalized at 55%. Normal valves. Echo, 06/04/2017: EF 55%. Normal valves. Echo, 09/29/2017: EF 65%. Normal valves. 2018, evaluated at [facility] Echo, 09/10/2022: EF 60%. Mild MR. MPS, 09/28/2022: EF >70%. No evidence of ischemia. Recurrent palpitations/tachyarrhythmias: Normal Holter, 10/2011. Event recorder shows atrial tachycardia at 145 bpm, which is symptomatic. Recurrent episode, 06/2017. Bilateral carotid duplex, 08/30/2017: GEORGE 0-49%, LICA 0-49%. 14d Holter, 10/22/2017: Essentially normal Holter readings. No significant arrhythmia. 30d event monitor, 12/22/2017: No Afib. No pauses. 1% PVCs. HR range 49-120 bpm, average 68 bpm. 11/2020 Monitor with brief PAT/MAT Loop recorder implant 01/2021 Hypertension. DONNA: Non-compliant with CPAP machine. Peptic ulcer disease. Hiatal hernia. Irritable bowel syndrome Nephrolithiasis. Surgeries. Breast lumpectomies extracted and benign. Hysterectomy. Bilateral cataract extraction with lens implantation. Right breast resection. History of Present Illness Rachael Fleming returns today for a follow up with a history of precordial chest pain, Takotsubo cardiomyopathy, and cardiac risk factors. Since last visit, patient has been doing well overall from a cardiovascular standpoint. She has previously injured her left knee and as she was guarding herleft knee, she tore her meniscus in her right knee. Patient notes episodes of tachycardia associated with weakness, shortness of breath, and breaking out in a cold sweat. She is non-compliant with her CPAP machine due to her having difficulty keeping it on her face while sleeping. Patient denies chest pain, orthopnea, edema, dizziness, and syncope. Allergies Allergen Reactions Penicillins Hives Phenergan [Promethazine Hcl] Hives Statins Myalgia Diclofenac Sodium Rash Metronidazole Rash Sudafed [Pseudoephedrine Hcl] Rash Sulfa Antibiotics Rash Current Outpatient Medications: albuterol sulfate HFA 108 (90 Base) MCG/ACT inhaler, Inhale 2 puffs Every 4 (Four) Hours As Needed for Wheezing., Disp: , Rfl: ALPRAZolam (XANAX) 0.25 MG tablet, Take 1 tablet by mouth 2 (Two) Times a Day As Needed for Anxiety., Disp: 10 tablet, Rfl: 0 aspirin 81 MG EC tablet, Take 1 tablet by mouth Daily., Disp: , Rfl: carvedilol (COREG) 3.125 MG tablet, Take 1 tablet by mouth 2 (Two) Times a Day With Meals., Disp: 180 tablet, Rfl: 3 Diclofenac Sodium (VOLTAREN) 1 % gel gel, , Disp: , Rfl: fluticasone (FLONASE) 50 MCG/ACT nasal spray, , Disp: , Rfl: hydroCHLOROthiazide (MICROZIDE) 12.5 MG capsule, Take 1 capsule by mouth Every Morning., Disp: 90 capsule, Rfl: 3 isosorbide mononitrate (IMDUR) 30 MG 24 hr tablet, Take 1 tablet by mouth 2 (Two) Times a Day., Disp: 180 tablet, Rfl: 3 loratadine (CLARITIN) 10 MG tablet, Take 1 tablet by mouth Daily., Disp: 90 tablet, Rfl: 0 losartan (COZAAR) 50 MG tablet, Take 0.5 tablets by mouth 2 (Two) Times a Day., Disp: 90 tablet, Rfl: 3 nitroglycerin (Nitrostat) 0.4 MG SL tablet, Place 1 tablet under the tongue Every 5 (Five) Minutes As Needed for Chest Pain. Take no more than 3 doses in 15 minutes., Disp: 25 tablet, Rfl: 5 omeprazole (priLOSEC) 40 MG capsule, Take 1 capsule by mouth Daily., Disp: 90 capsule, Rfl: 0 zolpidem (AMBIEN) 5 MG tablet, , Disp: , Rfl: cyclobenzaprine (FLEXERIL) 5 MG tablet, Take 1 tablet by mouth 3 (Three) Times a Day As Needed for Muscle Spasms. (Patient not taking: Reported on 01/10/2024), Disp: 15 tablet, Rfl: 0 The following portions of the patient's history were reviewed and updated as appropriate: allergies, current medications, past family history, past medical history, past social history, past surgicalhistory and problem list. ROS Objective: Vitals: 01/10/24 0850 BP: 126/76 BP Location: Right arm Patient Position: Sitting Pulse: 88 SpO2: 98% Weight: 77.1 kg (170 lb) Height: 167.6 cm (66 ) Vitals reviewed. Constitutional: Appearance: Well-developed and not in distress. Neck: Thyroid: No thyromegaly. Vascular: No carotid bruit or JVD. Pulmonary: Breath sounds: Normal breath sounds. Cardiovascular: Regular rhythm. No gallop. No S3 and S4 gallop. Pulses: Intact distal pulses. Carotid: 2+ bilaterally. Radial: 2+ bilaterally. Edema: Peripheral edema absent. Abdominal: General: Bowel sounds are normal. Palpations: Abdomen is soft. There is no abdominal mass. Tenderness: There is no abdominal tenderness. Musculoskeletal: General: No deformity. Extremities: No clubbing present.Skin: General: Skin is warm and dry. Findings: No rash. Neurological: Mental Status: Alert and oriented to person, place, and time. Lab Review: No recent laboratory studies available for review today. Procedures Advance Care Planning ACP discussion was held with the patient during this visit. Patient has an advance directive (not in EMR), copy requested. Assessment: Diagnoses and all orders for this visit: 1. Precordial chest pain (Primary) 2. History of Takotsubo cardiomyopathy 3. Essential hypertension 4. Dyslipidemia Impression: 1. Precordial chest pain. No recent episodes. Continue on aspirin 81 mg for antiplatelet therapy. Continue on Imdur 30 mg BID for chest pain. Continue on nitroglycerin 0.4 mg PRN for chest pain. 2. History of Takotsubo cardiomyopathy. Stable and asymptomatic. 3. Essential hypertension. Well controlled. Continue on carvedilol 3.125 mg BID for hypertension. Continue on hydrochlorothiazide 12.5 mg daily for hypertension. Continue on losartan 25 mg BID for hypertension. 4. Dyslipidemia. No labs for review. Plan: Stable cardiac status. Continue current medications. Revisit in 12 MO, or sooner as needed. Scribed for Abebe Diego MD by Belen Avila. 01/10/2024 09:16 EDT Abebe Diego MD Please note that portions of this note may have been completed with a voice recognition program. Efforts were made to edit the dictations, but occasionally words are mistranscribed. documented in this encounter Plan of Treatment Upcoming Encounters Date Type Department Care Team (Late st Contact Info) Description 12/22/2024 9:50 AM EST Office Visit [facility] [address] [facility] [address] [place] [address] Go Zazueta MD [address] [place] [address] [address] [place] [phone] 01/15/2025 9:45 AM EDT Office Visit [facility] [address] [facility] [address] [place] [address] Joy Skinner APRN [address] [facility] [address] [place] [address] documented as of this encounter Visit Diagnoses Diagnosis Precordial chest pain- Primary Precordial pain History of Takotsubo cardiomyopathy Takotsubo syndrome Essential hypertension Unspecified essential hypertension Dyslipidemia Other and unspecified hyperlipidemia documented in this encounter Care Teams Development Professional Relationship Specialty Start Date End Date Franko Juarez MD PCP - General Family Medicine 12/21/22 documented as of this encounter
--- OUTSIDE RECORDS SUMMARY | 2024-10-02 13:08 | XMS_ITS | Encounter Summary ---
Author Organization [facility] Address [address] [place] [address] Care Team Providers Care Director Of Web Marketing Name Role Phone Franko Juarez MD Primary Care Provider [phone] Reason for Visit * Reason Comments Follow-up 4 month f/u-- Osteoa rthritis of both knee Encounter Details Date Type Department Care Team (Late st Contact Info) Description 05/12/2024 9:20 AM EDT Office Visit [facility] [address] [address] Go Zazueta MD [address] [place] [address] Osteoarthritis of right knee, unspecified osteoarthritis type (Primary Dx); Osteoarthritis of left knee, unspecified osteoarthritis type Social History Tobacco Use Types Packs/Day Years [...] Sign Reading Time Taken Comments Blood Pressure 140/84 05/12/2024 9:25 AM EDT Pulse - - Temperature - - Respiratory Rate - - Oxygen Saturation - - Inhaled Oxygen Concentration - - Weight 75.7 kg (166 lb 12.8 oz) 05/12/2024 9:25 AM EDT Height 167.6 cm (5' 5.98 ) 05/12/2024 9:25 AM ED T Body Mass Index 26.94 05/12/2024 9:25 AM EDT documented in this encounter Progress Notes * Go Zazueta MD - 05/12/2024 9:20 AM EDT Images from the original note were not included. [facility] [place] [facility] Note Subjective Chief Complaint Patient presents with Follow-up 4 month f/u-- Osteoarthritis of both knee HPI It has been 4 month(s) since Ms. Fleming's last visit. She returns to clinic today for follow-up of bilateral knee arthritis. The issue has been ongoing for 7 month(s). She rates her pain a 2/10 on the pain scale. Previous/current treatments: NSAIDS, physical therapy, and steroid injection (last injection ). Current symptoms: pain and popping and stiffness. The pain is worse with walking; resting and pain medication and/or NSAID improve the pain. Overall, she is doing better. Right knee is bothering her more than the left currently. She would like a repeat injection in the right knee. Previous injections have provided good relief. I have reviewed the following portions of the patient's history and agree with: History of Present Illness and Review of Systems Patient Active Problem List Diagnosis History of Takotsubo cardiomyopathy DONNA (obstructive sleep apnea) Premature ventricular contractions (PVCs) (VPCs) PUD (peptic ulcer disease) IBS (irritable bowel syndrome) Atypical chest pain Essential hypertension Atrial tachycardia Rapid palpitations Nontraumatic complete tear of left rotator cuff Impingement syndrome of left shoulder Bursitis of left shoulder CHF (congestive heart failure) Coronary artery disease GERD (gastroesophageal reflux disease) Hiatal hernia Hyperlipidemia Hypertension IBS (irritable bowel syndrome) Nephrolithiasis DONNA (obstructive sleep apnea) Asthma Prediabetes Acute midline thoracic back pain Shortness of breath Past Medical History: Diagnosis Date Acute hemorrhagic cystitis hospitalized at [facility], 06/21/2015 Asthma Atrial tachycardia Chest pain 06/04/2017 CHF (congestive heart failure) Coronary artery disease 11/05/2016 GERD (gastroesophageal reflux disease) Heart murmur Hiatal hernia Hyperlipidemia Hypertension IBS (irritable bowel syndrome) Irritable bowel Knee joint cyst, left Myocardial infarction NSTEMI 10/2016, cath without intervention, small vessel disease, medical management Nephrolithiasis DONNA (obstructive sleep apnea) could not tolerate cpap. Palpitations 11/05/2016 Recurrent-tachyarrhythmias Normal Holter, October 2011. Event recorder shows atrial tachycardia at145 beats per minute, which is symptomatic. Peptic ulcer disease PUD (peptic ulcer disease) 11/05/2016 Takotsubo cardiomyopathy Initially diagnosed at [place] 2008. EF 20 at that time. 2008 EF 55% Torn meniscus 11/17/2023 Past Surgical History: Procedure Laterality Date BREAST LUMPECTOMY Right 20 years ago- extracted and benign CARDIAC CATHETERIZATION 2002 no stents. CARDIAC CATHETERIZATION N/A 10/26/2016 Procedure: Left Heart Cath; Surgeon: Lisa Hensley MD; Location: [facility]; Service: CARDIAC ELECTROPHYSIOLOGY PROCEDURE N/A 01/31/2021 Procedure: Loop insertion-; Surgeon: Abebe Diego MD; Location: [facility]; Service: Cardiovascular; Laterality: N/A; CATARACT EXTRACTION, BILATERAL COLONOSCOPY recommendation for five-year followup in 2018 HYSTERECTOMY enlarged uterus, bleeding, ~2000 Family History Problem Relation Age of Onset Heart disease Mother Stroke Mother Heart disease Father Heart attack Father Cancer Sister Stroke Maternal Grandmother Heart disease Maternal Grandfather Heart failure Maternal Grandfather Heart failure Paternal Grandmother Heart attack Paternal Grandmother Heart disease Paternal Grandfather Heart attack Paternal Grandfather Social History Socioeconomic History Marital status: Number of children: 2 Tobacco Use Smoking status: Never Passive exposure: Past Smokeless tobacco: Never Vaping Use Vaping status: Never Used Substance and Sexual Activity Alcohol use: Not Currently Drug use: Never Sexual activity: Defer Current Outpatient Medications on File Prior to Visit Medication Sig Dispense Refill albuterol sulfate HFA 108 (90 Base) MCG/ACT inhaler Inhale 2 puffs Every 4 (Four) Hours As Needed for Wheezing. ALPRAZolam (XANAX) 0.25 MG tablet Take 1 tablet by mouth 2 (Two) Times a Day As Needed for Anxiety.10 tablet 0 aspirin 81 MG EC tablet Take 1 tablet by mouth Daily. carvedilol (COREG) 3.125 MG tablet cyclobenzaprine (FLEXERIL) 5 MG tablet Take 1 tablet by mouth 3 (Three) Times a Day As Needed for Muscle Spasms. (Patient not taking: Reported on 03/20/2024) 15 tablet 0 Diclofenac Sodium (VOLTAREN) 1 % gel gel (Patient not taking: Reported on 03/20/2024) ezetimibe (ZETIA) 10 MG tablet Take 1 tablet by mouth Daily. 30 tablet 11 fluticasone (FLONASE) 50 MCG/ACT nasal spray hydroCHLOROthiazide 25 MG tablet Take 1 tablet by mouth Daily. 90 tablet 3 ibuprofen (ADVIL,MOTRIN) 200 MG tablet Take 1 tablet by mouth As Needed for Mild Pain. isosorbide mononitrate (IMDUR) 30 MG 24 hr tablet Take 1 tablet by mouth 2 (Two) Times a Day. 180 tablet 3 loratadine (CLARITIN) 10 MG tablet Take 1 tablet by mouth Daily. 90 tablet 0 losartan (COZAAR) 50 MG tablet Take 0.5 tablets by mouth 2 (Two) Times a Day. 90 tablet 3 nitroglycerin (Nitrostat) 0.[address] 1 tablet under the tongue Every 5 (Five) Minutes As Needed for Chest Pain. Take no more than 3 doses in 15 minutes. 25 tablet 5 omeprazole (priLOSEC) 40 MG capsule Take 1 capsule by mouth Daily. 90 capsule 0 zolpidem (AMBIEN) 5 MG tablet No current facility-administered medications on file prior to visit. Allergies Allergen Reactions Penicillins Hives Phenergan [Promethazine Hcl] Hives Statins Myalgia Diclofenac Sodium Rash Metronidazole Rash Sudafed [Pseudoephedrine Hcl] Rash Sulfa Antibiotics Rash Review of Systems Constitutional: Negative for activity change, appetite change, chills, diaphoresis, fatigue, fever and unexpected weight change. HENT: Negative for congestion, dental problem, drooling, ear discharge, ear pain, facial swelling, hearing loss, mouth sores, nosebleeds, postnasal drip, rhinorrhea, sinus pressure, sneezing, sore throat, tinnitus, trouble swallowing and voice change. Eyes: Negative for photophobia, pain, discharge, redness, itching and visual disturbance. Respiratory: Negative for apnea, cough, choking, chest tightness, shortness of breath, wheezing andstridor. Cardiovascular: Negative for chest pain, palpitations and leg swelling. Gastrointestinal: Negative for abdominal distention, abdominal pain, anal bleeding, blood in stool,constipation, diarrhea, nausea, rectal pain and vomiting. Endocrine: Negative for cold intolerance, heat intolerance, polydipsia, polyphagia and polyuria. Genitourinary: Negative for decreased urine volume, difficulty urinating, dysuria, enuresis, flank pain, frequency, genital sores, hematuria and urgency. Musculoskeletal: Positive for arthralgias. Negative for back pain, gait problem, joint swelling, myalgias, neck pain and neck stiffness. Skin: Negative for color change, pallor, rash and wound. Allergic/Immunologic: Negative for environmental allergies, food allergies and immunocompromised state. Neurological: Negative for dizziness, tremors, seizures, syncope, facial asymmetry, speech difficulty, weakness, light-headedness, numbness and headaches. Hematological: Negative for adenopathy. Does not bruise/bleed easily. Psychiatric/Behavioral: Negative for agitation, behavioral problems, confusion, decreased concentration, dysphoric mood, hallucinations, self-injury, sleep disturbance and suicidal ideas. The patientis not nervous/anxious and is not hyperactive. Objective Physical Exam BP 140/84 Ht 167.6 cm (65.98 ) Wt 75.7 kg (166 lb 12.8 oz) BMI 26.94 kg/m?? Body mass index is 26.94 kg/m??. General: Mental Status: Alert Appearance: Cooperative, in no acute distress Build and Nutrition: Well-developed female Orientation: Alert and oriented to person, place and time Posture: Normal Gait: Nonantalgic Integument: Right knee: no skin lesions, no rash, no ecchymosis Left knee: no skin lesions, no rash, no ecchymosis Lower Extremities: Right Knee: Tenderness: Medial/lateral joint line tenderness Effusion: 1+ Swelling: None Crepitus: Soft Atrophy: None Range of motion: Extension: 0?? Flexion: 120?? Instability: No varus laxity, no valgus laxity, negative anterior drawer Deformities: None Left Knee: Tenderness: Medial/lateral joint line tenderness Effusion: None Swelling: None Crepitus: Soft Atrophy: None Range of motion: Extension: 0?? Flexion: 120?? Instability: No varus laxity, no valgus laxity, negative anterior drawer Deformities: None Imaging/Studies Imaging Results (Last 24 Hours) No results found for the last 24 hours. No new imaging today. Assessment and Plan Diagnoses and all orders for this visit: 1. Osteoarthritis of right knee, unspecified osteoarthritis type (Primary) - - Large Joint Arthrocentesis: R knee 2. Osteoarthritis of left knee, unspecified osteoarthritis type - - Large Joint Arthrocentesis: R knee 1. Osteoarthritis of right knee, unspecified osteoarthritis type 2. Osteoarthritis of left knee, unspecified osteoarthritis type I reviewed my findings with patient. She would like an injection for her right knee today, and thiswas provided. I will see her back in 4 months, but I will be happy to see her back sooner for any problems. Procedure Note: The potential benefits of performing a therapeutic right knee joint injection, as well as potentialrisks (including, but not limited to infection, swelling, pain, bleeding, bruising, nerve/blood vessel damage, skin color changes, transient elevation in blood glucose levels, and fat atrophy) were discussed with the patient. After informed consent, timeout procedure was performed, and the skin on the right knee was prepped with chlorhexidine soap and alcohol, after which ethyl chloride was applied to the skin at the injection site. Via the anterolateral approach, 1ml of Kenalog 40mg/ml mixed with 4ml 0.5% ropivacaine plain was injected into the knee joint. The patient tolerated the procedurewell, experiencing 75% improvement a few minutes following the injection. There were no complications. Band-Aid was applied to the injection site. Post-procedural instructions were given to the patient and/or their caregiver. Return in about 4 months (around 09/12/2024). Go Zazueta MD 05/12/24 10:23 EDT Dictated Utilizing [employer] Dictation * Romelia Sharif, R.T.(R) - 05/12/2024 9:20 AM EDTAssociated Order(s): - Large Joint Arthrocentesis: R knee Procedure - Large Joint Arthrocentesis: R knee on 05/12/2024 10:06 AM Indications: pain Details: 21 G needle, anterolateral approach Medications: 4 mL ropivacaine 0.5 %; 40 mg triamcinolone acetonide 40 MG/ML Outcome: tolerated well, no immediate complications Procedure, treatment alternatives, risks and benefits explained, specific risks discussed. Immediately prior to procedure a time out was called to verify the correct patient, procedure, equipment, senior technical support analyst and site/side marked as required. Patient was prepped and draped in the usual sterile fashion. documented in this encounter Plan of Treatment Upcoming Encounters Date Type Department Care Team (Late st Contact Info) Description 12/22/2024 9:50 AM EST Office Visit [facility] [address] [facility] [address] [place] [address] Go Zazueta MD [address] [facility] [address] [place] [id number] 01/15/2025 9:45 AM EDT Office Visit [facility] [address] [facility] [address] [place] [address] Joy Skinner APRN [address] [facility] [address] [place] [address] documented as of this encounter Procedures Procedure Name Priority Date/Time Associated Diagnosis Comments HI ARTHROCENTESIS ASPIR&/INJ MAJOR JT/BURSA W/O US Routine 05/12/2024 10:06 AM EDT Osteoarthritis of right knee, unspecified osteoarthritis type Osteoarthritis of left knee, unspecified osteoarthritis type documented in this encounter Results * HI ARTHROCENTESIS ASPIR&/INJ MAJOR JT/BURSA W/O US (05/12/2024 10:06 AM EDT) Narrative Romelia Sharif R.T.(R) - 05/12/2024 10:06 AM EDT Romelia Sharif R.T.(R) ? 05/12/2024 10:23 AM - Large Joint Arthrocentesis: R knee on 05/12/2024 10:06 AM Indications: pain Details: 21 G needle, anterolateral approach Medications: 4 mL ropivacaine 0.5 %; 40 mg triamcinolone acetonide 40 MG/ML Outcome: tolerated well, no immediate complications Procedure, treatment alternatives, risks and benefits explained, specific risks discussed. Immediately prior to procedure a time out was called to verify the correct patient, procedure, equipment, senior technical support analyst and site/side marked as required. Patient was prepped and draped in the usual sterile fashion. Go Zazueta MD PROCEDURE/MINOR SURGICAL ORDER SUHAIL Final Result documented in this encounter Visit Diagnoses Diagnosis Osteoarthritis of right knee, unspecified osteoarthritis type- Primary Osteoarthritis of left knee, unspecified osteoarthritis type documented in this encounter Administered Medications Inactive Administered Medications - up to 3 most recent administrations Medication Order MAR Action Action Date Dose Rate Site ropivacaine (NAROPIN) 0.5 % injection 4 mL 4 mL, One-Time Injection, Starting on Wed05/12/24 at 1006, For 1 doseIndications:Osteoarthritis of right knee, unspecified osteoarthritis type,Osteoarthritis of left knee, unspecified osteoarthritis type Given 05/12/2024 10:06 AM EDT 4 mL Knee Right triamcinolone acetonide (KENALOG-40) injection 40 mg 40 mg, One-Time Injection, Starting on Wed05/12/24 at 1006, For 1 doseIndications:Osteoarthritis of right knee, unspecified osteoarthritis type,Osteoarthritis of left knee, unspecified osteoarthritis type Given 05/12/2024 10:06 AM EDT 40 mg Knee Right documented in this encounter Care Teams Director Of Web Marketing Relationship Specialty Start Date End Date Franko Juarez MD PCP - General Family Medicine 12/21/22 documented as of this encounter
--- OUTSIDE RECORDS SUMMARY | 2024-10-02 13:08 | XMS_ITS ---
Laboratory report Created on: September 26, 2024 ANTOLIN WHITEHEAD : 1945 Sex: Female Author Name ANTONIO ESCOBAR Organization Unknown PROBLEMS Problems List Code Description I10 R73.03 RESULTS Laboratory Orders Date Order Code Test 2022-07-22 364559 UA/M W/RFLX CULT URE, COMP 2022-07-22 [id number] ALBUMIN, RANDOM URINE Laboratory Results Date LOINC Test Value Unit Reference Range Interpre tation 2022-07-22 5811-5 SPECIFIC GRAVITY 1.011 1.005-1.030 2022-07-22 5803-2 PH 6 5.0-7.5 2022-07-22 5778-6 URINE-COLOR YL YELLOW 2022-07-22 5767-9 APPEARANCE CL CLEAR 2022-07-22 5799-2 WBC ESTERASE UR1 NEGATIVE A 2022-07-22 28318-1 PROTEIN N 2022-07-22 34450-4 GLUCOSE N NEGATIVE 2022-07-22 2514-8 KETONES N NEGATIVE 2022-07-22 5794-3 OCCULT BLOOD N NEGATIVE 2022-07-22 5770-3 BILIRUBIN N NEGATIVE 2022-07-22 74935-6 UROBILINOGEN,SEMI-QN .2 MG/DL 0.2-1.0 2022-07-22 5802-4 NITRITE, URINE N NEGATIVE 2022-07-22 19833-4 MICROSCOPIC EXAMINATION MICRO 2022-07-22 5821-4 WBC 0-5W /HPF 0 - 5 2022-07-22 47724-1 RBC NOSEE /HPF 0 - 2 2022-07-22 5787-7 EPITHELIAL CELLS (NON RENAL) 0-10E /HPF 0 - 10 2022-07-22 75431-8 CASTS NOSEE /LPF NONE SEEN 2022-07-22 5769-5 BACTERIA NOSEE 2022-07-22 URINALYSIS REFLEX FLEX 2022-07-22 630-4 URINE CULTURE,COMPREHENSIVE FINAL A 2022-07-22 630-4 RESULT 1 KLEBPN A 2022-07-22 85300-8 ANTIMICROBIAL SUSCEPTIBILITY MIHEAD 2022-07-22 02045-3 ALBUMIN, URINE 3.7 UG/ML
--- OUTSIDE RECORDS SUMMARY | 2024-10-02 13:08 | XMS_ITS | Encounter Summary ---
[facility] Address [address] [place] [address] Care Team Providers Care High School Football Coach Name Role Phone Franko Juarez MD Primary Care Provider +1- [phone] Reason for Visit * Reason Comments History of Takotsubo cardiomyopathy Encounter Details Date Type Department Care Team (Late st Contact Info) Description 06/26/2024 1:45 PM EDT Office Visit [facility] CARDIOLOGY [address] [place] [phone] Abebe Diego MD [address] [facility] [address] [place] [address] History of Takotsubo cardiomyopathy (Primary Dx); Primary hypertension; Mixed hyperlipidemia Social History Tobacco Use Types Packs/Day Years [...] Sign Reading Time Taken Comments Blood Pressure 124/68 06/26/2024 1:29 PM EDT Pulse 70 06/26/2024 1:29 PM EDT Temperature - - Respiratory Rate - - Oxygen Saturation 98% 06/26/2024 1:29 PM EDT Inhaled Oxygen Concentration - - Weight 77.9 kg (171 lb 12.8 oz) 06/26/2024 1:29 PM EDT Height 167.6 cm (5' 6 ) 06/26/2024 1:29 PM EDT Body Mass Index 27.73 06/26/2024 1:29 PM EDT documented in this encounter Progress Notes * Abebe Diego MD - 06/26/2024 1:45 PM EDT [facility] Cardiology Subjective: Encounter Date: 06/26/2024 Patient ID: Rachael Fleming is a 78 y.o. female. Chief Complaint: History of Takotsubo cardiomyopathy PROBLEM LIST: Takotsubo cardiomyopathy, 3 known episodes (1996, 2007, 2015): Initial diagnosis (1996) with subsequent recovery. [facility], 08/1997: Normal EF. Normal coronary arteries. Recurrence with diagnosis of Takotsubo syndrome (2007) at the [facility]. [facility], 06/2008: EF 20%. No significant coronary artery disease. Echo, 01/2009: EF 55%. C, 10/26/2016: EF 20%. Takotsubo/stress-induced cardiomyopathy with severe LV systolic dysfunction. Near normal coronary arteries. Echo, 10/28/2016: EF 41%. Findings consistent with stress-induced (Takotsubo) cardiomyopathy. Mild MR, mild TR. Echo, 12/21/2016: EF normalized at 55%. Normal valves. Echo, 06/04/2017: EF 55%. Normal valves. Echo, 09/29/2017: EF 65%. Normal valves. 2018, evaluated at [facility] Echo, 09/10/2022: EF 60%. Mild MR. MPS, 09/28/2022: EF >70%. No evidence of ischemia. Echo, 03/22/2024: EF 60%. Trace to mild MR. Recurrent palpitations/tachyarrhythmias: Normal Holter, 10/2011. Event recorder shows atrial tachycardia at 145 bpm, which is symptomatic. Recurrent episode, 06/2017. Bilateral carotid duplex, 08/30/2017: GEORGE 0-49%, LICA 0-49%. 14d Holter, 10/22/2017: Essentially normal Holter readings. No significant arrhythmia. 30d event monitor, 12/22/2017: No Afib. No pauses. 1% PVCs. HR range 49-120 bpm, average 68 bpm. 11/2020 Monitor with brief PAT/MAT Loop recorder implant 01/2021 End-of-life of loop recorder 12/2023 Hypertension. DONNA: Non-compliant with CPAP machine. Peptic ulcer disease. Hiatal hernia. Irritable bowel syndrome Nephrolithiasis. Surgeries. Breast lumpectomies extracted and benign. Hysterectomy. Bilateral cataract extraction with lens implantation. Right breast resection. History of Present Illness Rachael Fleming returns today for a 3 month follow up with a history of Takotsuba cardiomyopathy and cardiac risk factors. Since last visit, patient has been doing well overall from a cardiovascular standpoint. She recently returned from a beach vacation to [place], [place]. Patient has discontinued taking Zetia due to GI intolerance. She questions diet choices and was advised. Patient denies chest pain, shortness of breath, orthopnea, palpitations, edema, dizziness, and syncope. Allergies Allergen Reactions [...] , Rfl: carvedilol (COREG) 3.125 MG tablet, , Disp: , Rfl: fluticasone (FLONASE) 50 MCG/ACT nasal spray, , Disp: , Rfl: hydroCHLOROthiazide 25 MG tablet, Take 1 tablet by mouth Daily., Disp: 90 tablet, Rfl: 3 ibuprofen (ADVIL,MOTRIN) 200 MG tablet, Take 1 tablet by mouth As Needed for Mild Pain., Disp: , Rfl: isosorbide mononitrate (IMDUR) 30 MG 24 hr [...] Muscle Spasms. (Patient not taking: Reported on 03/20/2024), Disp: 15 tablet, Rfl: 0 Diclofenac Sodium (VOLTAREN) 1 % gel gel, , Disp: , Rfl: ezetimibe (ZETIA) 10 MG tablet, Take 1 tablet by mouth Daily. (Patient not taking: Reported on 06/26/2024), Disp: 30 tablet, Rfl: 11 The following portions of the patient's history were reviewed and updated as appropriate: allergies, current medications, past family history, past medical history, past social history, past surgicalhistory and problem list. ROS Objective: Vitals: 06/26/24 1329 BP: 124/68 BP Location: Left arm Patient Position: Sitting Cuff Size: Adult Pulse: 70 SpO2: 98% Weight: 77.9 kg (171 lb 12.8 oz) Height: 167.6 cm (66 ) Vitals reviewed. [...] to person, place, and time. Lab Review: Lab date: 06/08/2024 FLP: TC 216, TG 139, HDL 53, LDL 115.62 CMP: Glu 107, BUN 17, Creat 0.7, eGFR 81, Na 137, K 4.8, Cl 102, CO2 29, Ca 9.9, Alk Phos 76, AST 26, ALT 21 CBC: WBC 5.8, RBC 4.47, HGB 13.6, HCT 40.6, MCV 90.8, MCH 30.4, PLT 398 Procedures Advance Care Planning ACP discussion was held with the patient during this visit. Patient has an advance directive (not in EMR), copy requested. Assessment: Diagnoses and all orders for this visit: 1. History of Takotsubo cardiomyopathy (Primary) 2. Primary hypertension 3. Mixed hyperlipidemia Impression: 1. History of Takotsubo cardiomyopathy (Primary). Stable and asymptomatic. Continue on aspirin 81 mg for antiplatelet therapy. Continue on Imdur 30 mg BID for chest pain. Continue on nitroglycerin 0.4 mg PRN for chest pain. 2. Primary hypertension. Well controlled. Continue on carvedilol 3.125 mg BID for hypertension. Continue on hydrochlorothiazide 25 mg daily for hypertension. 3. Mixed hyperlipidemia. Elevated LDL. Statin intolerant. Plan: Stable cardiac status. Patient was encouraged to continue to be active and have a healthy diet. Patient is statin intolerant given her lack of documented CAD, only mild elevated and LDL, do not think PCSK9 inhibitor or Leqvio is warranted. Continue current medications. Revisit on 01/15/2025. Scribed for Abebe Diego MD by Belen Avila. 06/26/2024 14:19 EDT Abebe Diego MD Please note that portions of this note may have been completed with a voice recognition program. Efforts were made to edit the dictations, but occasionally words are mistranscribed. documented in this encounter Plan of Treatment Upcoming Encounters Date Type Department Care Team (Late st Contact Info) Description 12/22/2024 9:50 AM EST Office Visit [facility] ORTHOPEDICS & SPORTS MEDICINE [address] [facility] [address] [place] [address] Go Zazueta MD [address] [facility] [address] [place], [place] [phone] 01/15/2025 9:45 AM EDT Office Visit [facility] CARDIOLOG[facility] [address] [facility] [address] [place] [phone] Joy Skinner APRN [address] [facility] [address] [facility] [address] [place] [address] documented as of this encounter Visit Diagnoses Diagnosis History of Takotsubo cardiomyopathy- Primary Takotsubo syndrome Primary hypertension Unspecified essential hypertension Mixed hyperlipidemia documented in this encounter Care Teams High School Football Coach Relationship Specialty Start Date End Date Franko Juarez MD PCP - General Family Medicine 12/21/22 documented as of this encounter
--- OUTSIDE RECORDS SUMMARY | 2024-10-02 13:08 | XMS_ITS ---
Laboratory report Created on: September 26, 2024 ANTOLIN WHITEHEAD : 1945 Sex: Female Author Name ANTONIO ESCOBAR Organization Unknown PROBLEMS Problems List Code Description I51.81 I10 R73.03 Z11.59 I50.20 RESULTS Laboratory Orders Date Order Code Test 2022-07-22 090839 LIPID PANEL 2022-07-22 [id number] HCV ANTIBODY 2022-07-22 [id number] COMP. METABOLIC PANEL (14) 2022-07-22 555101 HEMOGLOBIN A1C 2022-07-22 508379 NT-PROBNP Laboratory Results Date LOINC Test Value Unit Reference Range Interpre tation 2022-07-22 2093-3 CHOLESTEROL, TOTAL 230 MG/DL 100-199 H 2022-07-22 2571-8 TRIGLYCERIDES 177 MG/DL 0-149 H 2022-07-22 2085-9 HDL CHOLESTEROL 54 MG/DL >39 2022-07-22 39254-0 VLDL CHOLESTEROL LENNY 32 MG/DL 5-40 2022-07-22 52854-4 LDL CHOL CALC ([facility]) 144 MG/DL 0-99 H 2022-07-22 82550-6 HEP C VIRUS AB <0.1 0.0-0.9 2022-07-22 2345-7 GLUCOSE 116 MG/DL 65-99 H 2022-07-22 3094-0 BUN 13 MG/DL 8-27 2022-07-22 2160-0 CREATININE .76 MG/DL 0.57-1.00 2022-07-22 74461-7 EGFR 82 ML/MIN/1.7 3 >59 2022-07-22 3097-3 BUN/CREATININE RATIO 17 12-2022-07-22 2951-2 SODIUM 138 MMOL/L 803-808 2511-09-21 2823-3 POTASSIUM 4 MMOL/L 3.5-5.2 2022-07-22 2075-0 CHLORIDE 98 MMOL/L 96-106 2022-07-22 2028-9 CARBON DIOXIDE, TOTAL 25 MMOL/L 20-29 2022-07-22 10168-2 CALCIUM 10 MG/DL 8.7-10.3 2022-07-22 2885-2 PROTEIN, TOTAL 7.3 G/DL 6.0-8.5 2022-07-22 1751-7 ALBUMIN 4.9 G/DL 3.7-4.7 H 2022-07-22 53759-9 GLOBULIN, TOTAL 2.4 G/DL 1.5-4.5 2022-07-22 1759-0 A/G RATIO 2 1.2-2.2 2022-07-22 1975-2 BILIRUBIN, TOTAL .6 MG/DL 0.0-1.2 2022-07-22 6768-6 ALKALINE PHOSPHATASE 87 IU/L 44-121 2022-07-22 1920-8 AST (SGOT) 18 IU/L 0-40 2022-07-22 1742-6 ALT (SGPT) 17 IU/L 0-32 2022-07-22 4548-4 HEMOGLOBIN A1C 5.9 % 4.8-5.6 H 2022-07-22 84726-1 NT-PROBNP 83 PG/ML 0-301
--- OUTSIDE RECORDS SUMMARY | 2024-10-02 13:08 | XMS_ITS | Encounter Summary ---
[facility] Address [address] [place] [address] Care Team Providers Care Chief Business Development Officer Name Role Phone Franko Juarez MD Primary Care Provider +1- [phone] Reason for Visit * Reason Onset Date Comments Remote cardiac monitoring 01/17/2024 Loop r ecorder battery TSA SCREENER Encounter Details Date Type Department Care Team (Late st Contact Info) Description 01/17/2024 Telephone [facility] CARDIOLOG[facility] [address] [place] [address] Abebe Diego MD [address] [facility] [address] [place] [address] Remote cardiac monitoring (Loop recorder battery TSA SCREENER) Social History Tobacco Use Types Packs/Day Years [...] on file documented as of this encounter Miscellaneous Notes * Telephone Encounter - Brook Kim RN - 01/17/2024 11:23 AM EDT Notified pt the loop recorder battery was at end of service & instructed her to unplug the homemonitor. Reminded pt her next appointment w/Dr. Diego is 03/20/2024. Pt verbalized understanding & compliance. * Telephone Encounter - Brook Kim RN - 01/17/2024 7:35 AM EDT Images from the original note were not included. Per [employer] loop recorder transmission received today, 01/17/2024: Battery @ TSA SCREENER (Recommended Replacement Time) as of 01/15/2024 ! 2:25 PM. documented in this encounter Plan of Treatment Upcoming Encounters Date Type Department Care Team (Late st Contact Info) Description 12/22/2024 9:50 AM EST Office Visit [facility] ORTHOPEDICS & SPORTS MEDICINE [address] [facility] [address] [place] [address] Go Zazueta MD [address] [facility] [address] [place], [place] [phone] 01/15/2025 9:45 AM EDT Office Visit [facility] [address] [facility] [address] [place] [address] Joy Skinner APRN [address] [facility] [address] [facility] [address] [place] [address] documented as of this encounter Visit Diagnoses Not on filedocumented in this encounter Care Teams Chief Business Development Officer Relationship Specialty Start Date End Date Franko Juarez MD PCP - General Family Medicine 12/21/22 documented as of this encounter
--- OUTSIDE RECORDS SUMMARY | 2024-10-02 13:08 | XMS_ITS | Encounter Summary ---
Author Organization [facility] Address [address] [place] [address] Care Team Providers Care Stem Sizer Name Role Phone Franko Juarez MD Primary Care Provider +1- [phone] Reason for Visit * Reason Comments Follow-up 4 month follow up- O steoarthritis of bilateral knee Encounter Details Date Type Department Care Team (Late st Contact Info) Description 09/15/2024 9:20 AM EST Office Visit [facility] MEDICINE [address] [phone] Go Zazueta MD [address] [facility] [address] [place] [phone] Osteoarthritis of right knee, unspecified osteoarthritis type [...] Sign Reading Time Taken Comments Blood Pressure 132/82 09/15/2024 8:45 AM EST Pulse - - Temperature - - Respiratory Rate - - Oxygen Saturation - - Inhaled Oxygen Concentration - - Weight 76.3 kg (168 lb 4.8 oz) 09/15/2024 8:45 A M EST Height 167.6 cm (5' 5.98 ) 09/15/2024 8:45 AM ES T Body Mass Index 27.18 09/15/2024 8:45 AM EST documented in this encounter Progress Notes * Go Zazueta MD - 09/15/2024 9:20 AM EST Images from the original note were not included. [facility] Orthopa[facility] Surgery Clinic Note Subjective Chief Complaint Patient presents with Follow-up 4 month follow up- Osteoarthritis of bilateral knee HPI It has been 4 month(s) since Ms. Fleming's last visit. She returns to clinic today for follow-up of bilateral knee arthritis. The issue has been ongoing for 11 month(s). She rates her pain a 4/10 onthe pain scale. Previous/current treatments: NSAIDS, physical therapy, and steroid injection (last injection 05/12/24). Current symptoms: pain, swelling, and stiffness. The pain is worse with walking,climbing stairs, and sleeping; resting, sitting, heat, and pain medication and/or NSAID improve thepain. Overall, she is doing the same. Right knee injection at her last visit helped for about 3 months. Her left knee is bothering her now to the point where she would like to try an injection. She wo uld also like to have an injection for her right knee. I have reviewed the following portions of [...] Diagnosis Date Acute hemorrhagic cystitis hospitalized at [facility], 06/21/2015 Asthma Atrial tachycardia Chest pain 06/04/2017 [...] disease) 11/05/2016 Takotsubo cardiomyopathy Initially diagnosed at [place] 2007. EF 20 at that time. 2008 EF 55% Torn meniscus 11/17/2023 Past Surgical History: Procedure Laterality Date BREAST LUMPECTOMY Right 20 years ago- extracted and benign CARDIAC CATHETERIZATION 2002 no stents. CARDIAC CATHETERIZATION N/A 10/26/2016 Procedure: Left Heart Cath; Surgeon: Lias Hensley MD; Location: [facility]; Service: CARDIAC ELECTROPHYSIOLOGY PROCEDURE N/A 01/31/2021 Procedure: Loop insertion-; Surgeon: Abebe Diego MD; Location: [facility]; Service: Cardiovascular; Laterality: N/A; [...] mouth Daily. carvedilol (COREG) 3.125 MG tablet fluticasone (FLONASE) 50 MCG/ACT nasal spray hydroCHLOROthiazide [...] Sudafed [Pseudoephedrine Hcl] Rash Sulfa Antibiotics Rash Zetia [Ezetimibe] GI Intolerance Review of Systems Constitutional: Negative for activity [...] is not hyperactive. Objective Physical Exam BP 132/82 Ht 167.6 cm (65.98 ) Wt 76.3 kg (168 lb 4.8 oz) BMI 27.18 kg/m?? Body mass index is 27.18 kg/m??. General: Mental Status: Alert Appearance: Cooperative, in no acute distress Build and Nutrition: Well-nourished well-developed female Orientation: Alert and oriented to person, place and time Posture: Normal Gait: Mild bilateral Integument: Right knee: no skin lesions, no [...] type (Primary) - - Large Joint Arthrocentesis: bilateral knee 2. Osteoarthritis of left knee, unspecified osteoarthritis type - - Large Joint Arthrocentesis: bilateral knee 1. Osteoarthritis of right knee, unspecified osteoarthritis type 2. Osteoarthritis of left knee, unspecified osteoarthritis type I reviewed my findings with the patient. We discussed options for her knees today, she would like repeat steroid injections which were provided. She was also inquiring about the possibility of viscosupplementation injections, we can consider that at her next visit. I will see her back in 3 months, but sooner for any problems. Procedure Note: The potential benefits of performing a therapeutic bilateral knee joint injections, as well as potential risks (including, but not limited to infection, swelling, pain, bleeding, bruising, nerve/blood vessel damage, skin color changes, transient elevation in blood glucose levels, and fat atrophy) were discussed with the patient. After informed consent, timeout procedure was performed, and the skin on the right and left knees was prepped with chlorhexidine soap and alcohol, after which ethyl chloride was applied to the skin at the injection site. Via the anterolateral approach, 1ml of Kenalog 4 0mg/ml mixed with 4ml 0.5% ropivacaine plain was injected into the knee joints. The patient tolerated the procedures well, experiencing 60% improvement in the right knee and 60% improvement in the left knee a few minutes following the injections. There were no complications. Band-Aids were applied to the injection sites. Post-procedural instructions were given to the patient and/or their caregiver. Return in about 3 months (around 12/16/2024). Go Zazueta MD 09/15/24 09:31 EST Dictated Utilizing [employer]ictation * Jyotsna Riddle - 09/15/2024 9:20 AM ESTAssociated Order(s): - Large Joint Arthrocentesis: bilateral knee Procedure - Large Joint Arthrocentesis: bilateral knee on 09/15/2024 9:19 AM Indications: pain Details: 21 G needle, anterolateral approach Medications (Right): 40 mg triamcinolone acetonide 40 MG/ML; 4 mL ropivacaine 0.5 % Medications (Left): 40 mg triamcinolone acetonide 40 MG/ML; 4 mL ropivacaine 0.5 % Outcome: tolerated well, no immediate complications Procedure, treatment alternatives, risks and benefits explained, specific risks discussed. Consent was given by the patient. Immediately prior to procedure a time out was called to verify the correctpatient, procedure, equipment, network support administrator and site/side marked as required. Patient was prepped and draped in the usual sterile fashion. documented in this encounter Plan of Treatment Upcoming Encounters Date Type Department Care Team (Late st Contact Info) Description 12/22/2024 9:50 AM EST Office Visit [facility] ORTHOPEDICS & SPORTS MEDICINE [address] [facility] [address] [place] [phone] Go Zazueta MD [address] [facility] [address] [place] [phone] 01/15/2025 9:45 AM EDT Office Visit [facility] CARDIOLOGY [address] [facility] [address] [place] [address] Joy Skinner APRN [address] [facility] [address] [facility] [address] [place] [address] documented as of this encounter Procedures Procedure Name Priority Date/Time Associated Diagnosis Comments SC ARTHROCENTESIS ASPIR&/INJ MAJOR JT/BURSA W/O US Routine 09/15/2024 9:19 AM EST Osteoarthritis of right knee, unspecified osteoarthritis type Osteoarthritis of left knee, unspecified osteoarthritis type documented in this encounter Results * SC ARTHROCENTESIS ASPIR&/INJ MAJOR JT/BURSA W/O US (09/15/2024 9:19 AM EST) Narrative Jyotsna Riddle - 09/15/2024 9:19 AM EST Jyotsna Riddle ? 09/15/2024 ??9:31 AM - Large Joint Arthrocentesis: bilateral knee on 09/15/2024 9:19 AM Indications: pain Details: 21 G needle, anterolateral approach Medications (Right): 40 mg triamcinolone acetonide 40 MG/ML; 4 mL ropivacaine 0.5 % Medications (Left): 40 mg triamcinolone acetonide 40 MG/ML; 4 mL ropivacaine 0.5 % Outcome: tolerated well, no immediate complications Procedure, treatment alternatives, risks and benefits explained, specific risks discussed. Consent was given by the patient. Immediately prior to procedure a time out was called to verify the correct patient, procedure, equipment, network support administrator and site/side marked as required. Patient was [...] mL 4 mL, One-Time Injection, Starting on Wed09/15/24 at 0919, For 1 doseIndications:Osteoarthritis of right knee, unspecified osteoarthritis type,Osteoarthritis of left knee, unspecified osteoarthritis type Given 09/15/2024 9:19 AM EST 4 mL Knee Left ropivacaine (NAROPIN) 0.5 % injection 4 mL 4 mL, One-Time Injection, Starting on Wed09/15/24 at 0919, For 1 doseIndications:Osteoarthritis of right knee, unspecified osteoarthritis type,Osteoarthritis of left knee, unspecified osteoarthritis type Given 09/15/2024 9:19 AM EST 4 mL Knee Right triamcinolone acetonide (KENALOG-40) injection 40 mg 40 mg, One-Time Injection, Starting on Wed09/15/24 at 0919, For 1 doseIndications:Osteoarthritis of right knee, unspecified osteoarthritis type,Osteoarthritis of left knee, unspecified osteoarthritis type Given 09/15/2024 9:19 AM EST 40 mg Knee Left triamcinolone acetonide (KENALOG-40) injection 40 mg 40 mg, One-Time Injection, Starting on Wed09/15/24 at 0919, For 1 doseIndications:Osteoarthritis of right knee, unspecified osteoarthritis type,Osteoarthritis of left knee, unspecified osteoarthritis type Given 09/15/2024 9:19 AM EST 40 mg Knee Right documented in this encounter Care Teams Stem Sizer Relationship Specialty Start Date End Date Franko Juarez MD PCP - General Family Medicine 12/21/22 documented as of this encounter
--- OUTSIDE RECORDS SUMMARY | 2024-10-02 13:08 | XMS_ITS | Encounter Summary ---
Author Organization [facility] Address [address] [place] [address] Care Team Providers Care Dermatology Teacher Name Role Phone Franko Juarez MD Primary Care Provider [phone]- [phone] Reason for Referral * Diagnostic Imaging (Routine) - Closed Specialty Diagnoses / Procedures Referred By Contac t Referred To Contact Diagnoses Takotsubo cardiomyopathy Primary hypertension Procedures Adult Transthoracic Echo Complete w/ Color, Spectral and Contrast if necessary per protocol Pam Givens PA-C [address] [place] [address] Phone: tel: fax: [place] [id number] Phone: tel: Referral ID Status Reason Start Date Expiration Date Visits Re quested Visits Authorized [id number] Closed 03/20/2024 03/20/2025 1 1 Reason for Visit * Diagnostic Imaging (Routine) - Closed Specialty Diagnoses / Procedures Referred By Contac t Referred To Contact Diagnoses Takotsubo cardiomyopathy Primary hypertension Procedures Adult Transthoracic Echo Complete w/ Color, Spectral and Contrast if necessary per protocol Pam Givens PA-C [facility] [place] [address] Phone: tel: fax: [address] [address] Phone: tel: Referral ID Status Reason Start Date Expiration Date Visits Re quested Visits Authorized [id number] Closed 03/20/2024 03/20/2025 1 1 Encounter Details Date Type Department Care Team (Late st Contact Info) Description 03/22/2024 8:50 AM EDT - 03/22/2024 11:59 PM EDT Hospital Encounter [facility] NONINVASIVE LAB [address] [place] [address] Pam Givens PA-C [address] [place] [address] History of Takotsubo cardiomyopathy; Primary hypertension Discharge Disposition: Home or Self Care Social History Tobacco Use Types Packs/Day Years [...] Sign Reading Time Taken Comments Blood Pressure 127/78 03/22/2024 8:58 AM EDT Pulse - - Temperature - - Respiratory Rate - - Oxygen Saturation - - Inhaled Oxygen Concentration - - Weight 78.5 kg (173 lb 1 oz) 03/22/2024 8:58 AM EDT Height 167.6 cm (5' 5.98 ) 03/22/2024 8:58 AM ED T Body Mass Index 27.95 03/22/2024 8:58 AM EDT documented in this encounter Medications at Time of Discharge albuterol sulfate HFA 108 (90 Base) MCG/ACT inhaler Inhale 2 puffs Every 4 (Four) Hours As Needed for Wheezing. ALPRAZolam (XANAX) 0.25 MG tabletIndications :Situational anxiety Take 1 tablet by mouth 2 (Two) Times a Day As Needed for Anxiety. 10 tablet 07/22/2022 aspirin 81 MG EC tablet Take 1 tablet by mouth Daily. carvedilol (COREG) 3.125 MG tablet 03/13/2024 fluticasone (FLONASE) 50 MCG/ACT nasal spray 01/23/2021 hydroCHLOROthiazi de 25 MG tablet Take 1 tablet by mouth Daily. 90 tablet 3 03/20/2024 isosorbide mononitrate (IMDUR) 30 MG 24 hr tablet Take 1 tablet by mouth 2 (Two) Times a Day. 180 tablet 3 03/20/2024 loratadine (CLARITIN) 10 MG tablet Take 1 tablet by mouth Daily. 90 tablet 07/15/2022 losartan (COZAAR) 50 MG tablet Take 0.5 tablets by mouth 2 (Two) Times a Day. 90 tablet 3 03/20/2024 nitroglycerin (Nitrostat) 0.[address] 1 tablet under the tongue Every 5 (Five) Minutes As Needed for Chest Pain. Take no more than 3 doses in 15 minutes. 25 tablet 5 01/16/2020 omeprazole (priLOSEC) 40 MG capsule Take 1 capsule by mouth Daily. 90 capsule 12/02/2022 zolpidem (AMBIEN) 5 MG tablet 04/04/2021 cyclobenzaprine (FLEXERIL) 5 MG tablet Take 1 tablet by mouth 3 (Three) Times a Day As Needed for Muscle Spasms. 15 tablet 08/19/2022 06/26/2024 Diclofenac Sodium (VOLTAREN) 1 % gel gel 01/04/2023 06/26/2024 ezetimibe (ZETIA) 10 MG tablet Take 1 tablet by mouth Daily. 30 tablet 11 03/20/2024 06/26/2024 documented as of this encounter Plan of Treatment Upcoming Encounters Date Type Department Care Team (Late st Contact Info) Description 12/22/2024 9:50 AM EST Office Visit [facility] ORTHOPEDICS & [facility]TS MEDICINE [address] [place] [address] Go Zazueta MD [address] [facility] [address] [place] [address] 01/15/2025 9:45 AM EDT Office Visit [facility] CARDIOLOGY [address] [place] [address] Joy Skinner APRN [address] [place] [address] documented as of this encounter Procedures Procedure Name Priority Date/Time Associated Diagnosis Comments ECHO COMPLETE W/ DOPPLER AND COLOR FLOW Routine 03/22/2024 9:45 AM EDT History of Takotsubo cardiomyopathy Primary hypertension documented in this encounter Results * ECHO COMPLETE W/ DOPPLER AND COLOR FLOW (03/22/2024 9:45 AM EDT) IVSd 0.88 cm LVPWd 0.85 cm IVS/LVPW 1.04 cm LV Sys Vol (BSA corrected) 16.7 cm2 LV Cassidy Vol (BSA corrected) 38.0 cm2 EDV(MOD-sp2) 73.6 ml EDV(MOD-sp4) 71.6 ml ESV(MOD-sp2) 25.1 ml ESV(MOD-sp4) 31.4 ml SV(MOD-sp2) 48.5 ml SV(MOD-sp4) 40.2 ml SVi(MOD-SP2) 25.7 ml/m2 SVi(MOD-SP4) 21.3 ml/m2 EF(MOD-sp2) 65.9 % EF(MOD-sp4) 56.1 % MV E max lisandro 89.0 cm/sec MV A max lisandro 96.0 cm/sec MV E/A 0.93 TR max lisandro 204.8 cm/sec LA dimension (2D) 3.8 cm LV V1 max 95.0 cm/sec LV V1 max PG 3.6 mmHg LV V1 mean PG 1.40 mmHg LV V1 VTI 23.7 cm Ao pk lisandro 134.0 cm/sec Ao max PG 7.2 mmHg Ao mean PG 4.0 mmHg Ao V2 VTI 33.0 cm MV max PG 4.9 mmHg MV mean PG 1.70 mmHg MV V2 VTI 33.7 cm MV dec slope 355.0 cm/sec2 TR max PG 20.1 mmHg PA V2 max 96.0 cm/sec PA acc time 0.13 sec PI end-d lisandro 91.0 cm/sec LVIDd 4.6 cm LVIDs 3.3 cm LVOT diam 2.0 cm Ao root diam 2.9 cm Ascending aorta 3.3 cm LA ESV Index (BP) 21.7 ml/m2 Med Peak E' Lisandro 8.19 cm/sec Lat Peak E' Lisandro 8.2 cm/sec Avg E/e' ratio 10.86 RV Base 2.66 cm RV Mid 2.53 cm RV Length 5.96 cm TAPSE (>1.6) 1.71 cm RV S' 17.02 cm/sec EF(MOD-bp) 59.8 % RVSP(TR) 23 mmHg RAP systole 3 mmHg Echo EF Estimated 60.0 % Anatomical Region Laterality Modality Ultrasound Narrative 03/23/2024 9:38 AM EDT ?Left ventricular systolic function is normal. Estimated left ventricular EF = 60% ?Trace to mild mitral valve regurgitation is present. Left Ventricle Left ventricular systolic function is normal. Estimated left ventricular EF = 60% Left ventricular ejection fraction appears to be 56 - 60%. Normal left ventricular cavity size and wall thickness noted. Right Ventricle Normal right ventricular cavity size and systolic function noted. Left Atrium Normal left atrial size and volume noted. Right Atrium Normal right atrial cavity size noted. The inferior vena cava is normally sized. The diameter of the inferior vena cava is 1.41 cm. Normal IVC inspiratory collapse of greater than 50% noted. Mitral Valve The mitral valve is normal in structure. Trace to mild mitral valve regurgitation is present. Tricuspid Valve The tricuspid valve is structurally normal with no significant stenosis present. Trace tricuspid valve regurgitation is present. Estimated right ventricular systolic pressure from tricuspid regurgitation is normal (<35 mmHg). Aortic Valve The aortic valve is structurally normal with no regurgitation or stenosis present. Pulmonic Valve The pulmonic valve is structurally normal with no significant stenosis present. There is trace to mild pulmonic valve regurgitation present. Pericardium The pericardium is normal. There is no evidence of pericardial effusion. . Greater Vessels No dilation of the aortic root is present. No dilation of the sinuses of Valsalva is present. Study Quality The study is technically adequate for diagnosis. us Pam Givens PA-C CV ECHO ORDERABLES Final Resu lt documented in this encounter Visit Diagnoses Diagnosis History of Takotsubo cardiomyopathy Takotsubo syndrome Primary hypertension Unspecified essential hypertension documented in this encounter Care Teams Dermatology Teacher Relationship Specialty Start Date End Date Franko Juarez MD PCP - General Family Medicine 12/21/22 documented as of this encounter
--- OUTSIDE RECORDS SUMMARY | 2024-10-02 13:08 | XMS_ITS | Clinical Summary ---
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 Active albuterol sulfate HFA 108 (90 Base) MCG/ACT inhaler Inhale 2 puffs Every 4 (Four) Hours As Needed for Wheezing. Active nitroglycerin (Nitrostat) 0.[address] 1 tablet under the tongue Every 5 (Five) Minutes As Needed for Chest Pain. Take no more than 3 doses in 15 minutes. 25 tablet 5 01/16/2020 Active fluticasone (FLONASE) 50 MCG/ACT nasal spray 01/23/2021 Active zolpidem (AMBIEN) 5 MG tablet 04/04/2021 Active loratadine (CLARITIN) 10 MG tablet Take 1 tablet by mouth Daily. 90 tablet 07/15/2022 Active ALPRAZolam (XANAX) 0.25 MG tabletIndication s:Situational anxiety Take 1 tablet by mouth 2 (Two) Times a Day As Needed for Anxiety. 10 tablet 07/22/2022 Active omeprazole (priLOSEC) 40 MG capsule Take 1 capsule by mouth Daily. 90 capsule 12/02/2022 Active carvedilol (COREG) 3.125 MG tablet 03/13/2024 Active hydroCHLOROthiaz jenni 25 MG tablet Take 1 tablet by mouth Daily. 90 tablet 3 03/20/2024 Active isosorbide mononitrate (IMDUR) 30 MG 24 hr tablet Take 1 tablet by mouth 2 (Two) Times a Day. 180 tablet 3 03/20/2024 Active losartan (COZAAR) 50 MG tablet Take 0.5 tablets by mouth 2 (Two) Times a Day. 90 tablet 3 03/20/2024 Active ibuprofen (ADVIL,MOTRIN) 200 MG tablet Take 1 tablet by mouth As Needed for Mild Pain. Active Active Problems Problem Noted Date Diagnosed Date Acute midline thoracic back pain 08/20/2022 Assessment & Plan (08/20/2022 1:16 PM EDT): Patient with strong cardiac history presents with complaints of upper back pain, described as pressure at midline x six days. This pressure has been unchanged by repositioning, NSAIDS, tylenol or heat therapy. She reports this pain has been accompanied by intermittent episodes of shortness of breath. She makes note that she has activated her loop recorder twice during this time and been told she was not having any detectible abnormalities. EKG this visit is unchanged from previous, however, this cannot exclude other cardiac etiology such as aneurysmal pain. - given her significant cardiac history, patient advised to seek further evaluation in ED Shortness of breath 08/20/2022 Assessment & Plan (08/20/2022 1:15 PM EDT): Intermittent in nature, she feels like these episodes are anxiety driven. No cough or wheeze. Adequate oxygen saturation on assessment. Prediabetes 07/29/2022 CHF (congestive heart failure) 07/21/2022 GERD (gastroesophageal reflux disease) Hiatal hernia 07/21/2022 Hyperlipidemia 07/21/2022 Hypertension 07/21/2022 IBS (irritable bowel syndrome) 07/21/2022 Nephrolithiasis 07/21/2022 DONNA (obstructive sleep apnea) 07/21/2022 Overview (07/21/2022): could not tolerate cpap. Asthma 07/21/2022 Nontraumatic complete tear of left rotator cuff 02/13/2021 Impingement syndrome of left shoulder 02/13/2021 Bursitis of left shoulder 02/13/2021 Rapid palpitations 01/24/2021 Overview (01/24/2021): Added automatically from request for surgery [id number] Atrial tachycardia 07/07/2017 Overview (09/29/2017): ?? Event recorder shows atrial tachycardia at 145 beats per minute, which is symptomatic. Atypical chest pain 06/04/2017 Overview (02/07/2018): ?? Cardiac catheterization (10/26/16): Near normal coronary arteries. LVEF 20% in the pattern of stress-induced cardiomyopathy. ?? [facility] ER presentation with biomarker negative but nitrate responsive chest pain and normal LVEF on echo, 09/29/[address] ?? [address] angiogram (02/07/2018): Minimal coronary artery disease. Normal aorta with no evidence of dissection or aneurysm. Essential hypertension 06/04/2017 Premature ventricular contractions (PVCs) (VPCs) 11/05/2016 Overview (09/29/2017): ?? [facility] ER presentation with chest pain and symptomatic PVCs on EKG, 1120 and 17 PUD (peptic ulcer disease) 11/05/2016 IBS (irritable bowel syndrome) 11/05/2016 Coronary artery disease 11/05/2016 History of Takotsubo cardiomyopathy 10/26/2016 Overview (09/29/2017): ?? Initial diagnosis 1996 with recurrences in 2007 and 2015 ?? Cardiac catheterization (10/26/16): Near normal coronary arteries. LVEF 20% in the pattern of stress-induced cardiomyopathy. ?? Echo (06/04/17): LVEF 55%. No valvular abnormality. ?? Echo (09/29/17): LVEF 65%. No valvular abnormality. DONNA (obstructive sleep apnea) 10/26/2016 Resolved Problems Problem Noted Date Diagnosed Date Resolved Date Coronary artery disease invo lving chilkat coronary artery of chilkat heart without angina pectoris 11/18/2017 02/07/2018 Muscle cramping 02/08/2017 02/07/2018 Coronary artery disease, history of NSTEMI 11/05/2016 09/29/2017 Overview (09/29/2017): ?? Cardiac cath (1996): normal coronary arteries. Normal EF. ?? Cardiac catheterization (06/2008): with no significant coronary artery disease. LVEF=20%. ?? Echo (01/2009): LVEF= 55% Unstable angina 10/26/2016 09/29/2017 Non-STEMI (non-ST elevated m yocardial infarction) 10/26/2016 09/29/2017 Hypertension, however hypote nsive since admit with NSTEMI 10/26/2016 09/29/2017 Encounters Date Type Department Care Team Description 09/15/2024 9:20 AM EST Office Visit [facility] ORTHOPEDICS & SPORTS MEDICINE [address] [address] Go Zazueta MD Osteoarthritis of right knee, unspecified osteoarthritis type (Primary Dx); Osteoarthritis of left knee, unspecified osteoarthritis type 09/15/2024 Travel from Last 3 Months Immunizations Name Administration Dates Next Due COVID-19 ([employer]) Purple Cap Monovalent 12/18/19 21,11/27/2020 Fluzone High-Dose 65+YRS 08/05/2020,08/23/2017,0 06/01/2017 Fluzone High-Dose 65+yrs 07/22/2022 Influenza, Unspecified 07/08/2021 Pneumococcal Conjugate 13-Valent (PCV13) 015,2012 Pneumococcal Polysaccharide (PPSV23) 08/04/2016 Tdap 08/04/2016,1966 Zostavax 1997 Family History Medical History Relation Name Comments Heart attack Father Mode Liu Heart disease Father Mode Liu Heart disease Maternal Grandfather Mahamed moncada Heart failure Maternal Grandfather Mahamed moncada Stroke Maternal Grandmother Heart disease Mother Rachael Nealopher Stroke Mother Rachael Nealophjordin Heart attack Paternal Grandfather Renzo Christopher Heart disease Paternal Grandfather Renzo Liu Heart attack Paternal Grandmother Moon Liu Heart failure Paternal Grandmother Moon Liu Cancer Sister Relation Name Status Comments Father Mode Liu (Age 60) Maternal Grandfather Mahamed moncada Maternal Grandmother Mother Rachael Liu (Age 83) Paternal Grandfather Renzo Liu Paternal Grandmother Moon Liu Sister Alive cancer thyroid. Social History Tobacco Use Types Packs/Day Years [...] file Not on file Not on file Last Filed Vital Signs Vital Sign Reading Time Taken Comments Blood Pressure 132/82 09/15/2024 8:45 AM EST Pulse 70 06/26/2024 1:29 PM EDT Temperature 36.3 ??C (97.3 ??F) 08/19/2022 6:24 PM ED T Respiratory Rate 18 08/19/2022 6:24 PM EDT Oxygen Saturation 98% 06/26/2024 1:29 PM EDT Inhaled Oxygen Concentration - - Weight 76.3 kg (168 lb 4.8 oz) 09/15/2024 8:45 A M EST Height 167.6 cm (5' 5.98 ) 09/15/2024 8:45 AM ES T Body Mass Index 27.18 09/15/2024 8:45 AM EST Plan of Treatment Upcoming Encounters Date Type Department Care Team (Late st Contact Info) Description 12/22/2024 9:50 AM EST Office Visit [facility] ORTHOPEDICS & SPORTS MEDICINE [address] [place] [address] Go Zazueta MD [address] [facility] [address] [place], [place] [id number] 01/15/2025 9:45 AM EDT Office Visit [facility] CARDIOLOGY [address] [place] [id number] Joy Skinner, BO [address] [place] [address] Health Maintenance Due Date Last Done Comments COLOGUARD 1945 COLON CANCER SCREENING 5 YEA R SIGMOIDOSCOPY 1947 COLONOSCOPY 1947 [address] CANCER SCREENING 1947 CT COLONOGRAPHY 1947 DXA SCAN 1945 FECAL OCCULT BLOOD TEST 1947 FIT Testing (1 year) 1945 ZOSTER VACCINE (2 of 3) 10/29/1997 1997 ANNUAL WELLNESS VISIT 02/08/2017 RSV Vaccine - Adults (1 - 1- dose 75+ series) 2022 LIPID PANEL 07/22/2023 07/22/2022, 1112/2020, 06/04/2017 INFLUENZA VACCINE 05/01/2024 09/15/2023, , 07/08/2021, Additional history exists COVID-19 Vaccine ( - 2023-2 5 season) 2024 08/18/2021, 12/18/2020, 11/27/2020 BMI FOLLOWUP 11/10/2024 11/10/2023, 07/03, 07/22/2022 TDAP/TD VACCINES (3 - Td or Tdap) 08/04/2026 016, 1966 Pneumococcal Vaccine 65+ Completed 016, 07/26/2015, 2012 HEPATITIS C SCREENING Completed 07/22/2022 Medical Devices Implanted Type Area Neuro Ophthalmologist Device Identifier Shelf Expiration Date Model / Serial / Lot Lp Recorder Card Lux/Dx - [id number] Implanted:Qty: 1 on 01/31/2021 by Abebe Diego MD at [facility] [employer] [id number] / / Procedures Procedure Name Priority Date/Time Associated Diagnosis Comments VT ARTHROCENTESIS ASPIR&/INJ MAJOR JT/BURSA W/O US Routine 09/15/2024 9:19 AM EST Osteoarthritis of right knee, unspecified osteoarthritis type Osteoarthritis of left knee, unspecified osteoarthritis type LIPID PANEL Routine 07/22/2022 9:23 AM EDT Essential hypertension Prediabetes HEPATITIS C ANTIBODY Routine 07/22/2022 9:23 AM EDT Need for hepatitis C screening test from Last 3 Months or Most Recently Relevant to Health Maintenance Results * VT ARTHROCENTESIS ASPIR&/INJ MAJOR JT/BURSA W/O US (09/15/2024 [...] to verify the correct patient, procedure, equipment, support merchandiser and site/side marked as required. Patient was prepped and draped in the usual sterile fashion. us Go Zazueta MD PROCEDURE/MINOR SURGICAL ORDER SUHAIL Final Result * Hepatitis C Antibody (07/22/2022 9:23 AM EDT) Hep C Virus Ab <0.1 0.0 - 0.9 s/co ratio [facility] Comment: ?Negative: ? < 0.8 ? Indeterminate: 0.8 - 0.9 ?Positive: ? > 0.9 HCV antibody alone does not differentiate between previous resolved infection and active infection. The CDC and current clinical guidelines recommend that a positive HCV antibody result be followed up with an HCV RNA test to support the diagnosis of acute HCV infection. [facility] offers Hepatitis C Virus (HCV) RNA, Diagnosis, CORDELL ([id number]) and Hepatitis C Virus (HCV) Antibody with reflex to Quantitative Real-time PCR ([id number]). Blood Structure of right upper limb / Unknown 07/22/2022 9:23 AM EDT 07/22/2022 Comment:Blood Release to blake Armijo [facility] (AMBULATORY) - 07/23/2022 9:07 AM EDT Performed at: ??01 - [facility] ??[id number] Tire Manager: Arun Tenorio PhD, Phone: ??[phone] us Zach Foote MD LAB BLOOD ORDERABLES Final Res ult [facility] (AMBULATORY) [address] [place] [address], [facility] [address] [place] [id number], * (ABNORMAL) Lipid Panel (07/22/2022 9:23 AM EDT) Total Cholesterol 230(H) 100 - 199 mg/dL [facility] Triglycerides 177(H) 0 - 149 mg/dL [facility] HDL Cholesterol 54 >39 mg/dL [facility] VLDL Cholesterol Harsh 32 5 - 40 mg/dL [facility] LDL Chol Calc ([facility]) 144(H) 0 - 99 mg/dL [facility] Blood Structure of right upper limb / Unknown 07/22/2022 9:23 AM EDT 07/22/2022 Comment:Blood Release to blake [place] Aleksander [facility] ([facility]UL[facility]) - 07/23/2022 9:07 AM EDT Performed at: ??01 - [facility] [address] ??[id number] Tire Manager: Arun Tenorio PhD, Phone: ??[phone] us Zach Foote MD LAB BLOOD ORDERABLES Final Res ult [facility] (AMBULATORY) [address] [place] [address], [facility] [address] [place] [id number], from Last 3 Months or Most Recently Relevant to Health Maintenance Insurance [employer] Advance Directives * Full Code (Latest Code Status on File) Date Activated Date Inactivated Comments 06/04/2017 3:11 AM 06/04/2017 6:38 PM * Full Code Date Activated Date Inactivated Comments 10/26/2016 2:55 AM 10/28/2016 4:49 PM Care Teams 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
--- OUTSIDE RECORDS SUMMARY | 2024-10-02 13:08 | XMS_ITS | Encounter Summary ---
Author Organization [facility] Address [address] [place] [address] Care Team Providers Care Operations Technician Name Role Phone Franko Juarez MD Primary Care Provider [phone]- [phone] Reason for Referral * Diagnostic Imaging (Routine) - Closed Specialty Diagnoses / Procedures Referred By Contac t Referred To Contact Diagnoses Takotsubo cardiomyopathy Primary hypertension Procedures Adult Transthoracic Echo Complete w/ Color, Spectral and Contrast if necessary per protocol Pam Givens PA-C [address] [facility] [address] [place] [address] Phone: tel: fax: [address] [address] Phone: tel: Referral ID Status Reason Start Date Expiration Date Visits Re quested Visits Authorized [id number] Closed 03/20/2024 03/20/2025 1 1 Reason for Visit * Reason Comments Precordial chest pain Encounter Details Date Type Department Care Team (Late st Contact Info) Description 03/20/2024 10:15 AM EDT Office Visit [facility] [address] [facility] [address] [place] [address] Pam Givens PA-C [address] [facility] [address] [place] [address] History of Takotsubo cardiomyopathy (Primary Dx); Primary hypertension; Mixed hyperlipidemia; Lower extremity edema Social History Tobacco Use Types Packs/Day Years [...] Sign Reading Time Taken Comments Blood Pressure 132/72 03/20/2024 9:43 AM EDT Pulse 60 03/20/2024 9:43 AM EDT Temperature - - Respiratory Rate - - Oxygen Saturation 97% 03/20/2024 9:43 AM EDT Inhaled Oxygen Concentration - - Weight 78.5 kg (173 lb) 03/20/2024 9:43 AM EDT Height 167.6 cm (5' 6 ) 03/20/2024 9:43 AM EDT Body Mass Index 27.92 03/20/2024 9:43 AM EDT documented in this encounter Progress Notes * Pam Givens PA-C - 03/20/2024 10:15 AM EDTAssociated Order(s): ECG 12 Lead Post-Procedure Diagnose(s): Lower extremity edema; Takotsubo cardiomyopathy Images from the original note were not included. Follow-up Visit Date: 03/20/2024 Patient Name: Rachael Fleming : 1945 Chief Complaint: Shortness of breath History of Present Illness: Rachael Fleming is a 78 y.o. female who is here today for follow-upfor history of Takotsubo cardiomyopathy, palpitations, hypertension. Patient returns early today because she is having some shortness of breath and lower extremity edema. She has noticed this over the last couple of months. It seems to worsen throughout the day and get better when she elevates her legs at night. She has also noticed some shortness of breath. She is able to do things around the house but otherwise does not have a significant workout routine. Patient checks her blood pressure on a regular basis and noticed her blood pressures become elevated in the evenings recently but otherwise has been within normal limits. Since her last appointment her loop recorder has reached MARQUES. Problem List Takotsubo cardiomyopathy, 3 known episodes (1996, 2007, 2015): Initial diagnosis (1996) with subsequent recovery. [facility], 08/1997: Normal EF. Normal coronary arteries. Recurrence with diagnosis of Takotsubo syndrome (2007) at the [facility]. C, 06/2008: EF 20%. No significant coronary [...] EF 65%. Normal valves. 2018, evaluated at [facility] Echo, 09/10/2022: EF 60%. Mild MR. MPS, [...] extraction with lens implantation. Right breast resection. Subjective ROS Review of systems was performed and pertinent positives and negatives are noted in the HPI. Current Outpatient Medications: albuterol sulfate HFA 108 [...] % gel gel, , Disp: , Rfl: Allergies Allergen Reactions Penicillins Hives Phenergan [Promethazine Hcl] Hives Statins Myalgia Diclofenac Sodium Rash Metronidazole Rash Sudafed [Pseudoephedrine Hcl] Rash Sulfa Antibiotics Rash Objective Vitals: 03/20/24 0943 BP: 132/72 BP Location: Left arm Patient Position: Sitting Pulse: 60 SpO2: 97% Weight: 78.5 kg (173 lb) Height: 167.6 cm (66 ) Body mass index is 27.92 kg/m??. Physical Exam Constitutional: Well-developed, well-nourished, no acute distress HENT: Normocephalic, atraumatic moist oral mucosa Neck: Neck supple. No JVD present. No carotid bruits. Cardiovascular: Regular rate, regular rhythm and normal heart sounds. No murmur heard. Pulmonary/Chest: Clear to auscultation bilaterally without wheezing, rhonchi, or rails Abdominal: Nondistended Musculoskeletal: No obvious deformity Neurological: Alert and oriented x3, no focal deficits Extremities: Trace bilateral lower extremity edema, palpable PT pulses bilaterally Lab Review: Lab Results Component Value Date GLUCOSE 105 (H) 08/19/2022 BUN 12 08/19/2022 CREATININE 0.70 10/19/2023 EGFRIFNONA 63 01/31/2021 EGFRIFAFRI >60 04/27/2018 BCR 15.6 08/19/2022 K 4.2 08/19/2022 CO2 27.0 08/19/2022 CALCIUM 10.2 08/19/2022 PROTENTOTREF 7.3 07/22/2022 ALBUMIN 4.60 08/19/2022 LABIL2 2.0 07/22/2022 AST 17 08/19/2022 ALT 16 08/19/2022 Lab Results Component Value Date WBC 8.06 08/19/2022 HGB 13.6 08/19/2022 HCT 39.6 08/19/2022 MCV 86.7 08/19/2022 PLT 369 08/19/2022 Lab Results Component Value Date CHOL 137 06/04/2017 CHLPL 230 (H) 07/22/2022 TRIG 177 (H) 07/22/2022 HDL 54 07/22/2022 LDL 144 (H) 07/22/2022 Lab Results Component Value Date TSH 1.144 09/29/2017 Lab Results Component Value Date HGBA1C 5.9 (H) 07/22/2022 Advance Care Planning ACP discussion was declined by the patient. Patient does not have an advance directive, declines further assistance. ECG 12 Lead Date/Time: 03/20/2024 10:55 AM Performed by: Pam Givens PA-C Authorized by: Pam Givens PA-C Comparison: compared with previous ECG from 08/19/2022 Similar to previous ECG Rhythm: sinus rhythm BPM: 60 Other findings: non-specific ST-T wave changes Clinical impression: non-specific ECG Assessment / Plan Assessment: 1. History of Takotsubo cardiomyopathy 2. Primary hypertension 3. Mixed hyperlipidemia 4. Lower extremity edema Plan: Patient is experiencing some lower extremity edema as well as some mild shortness of breath. Given her history of Takotsubo cardiomyopathy we will get an echocardiogram for further evaluation of structural or valvular heart abnormalities. EKG today is unchanged from previous EKG. Will increase her hydrochlorothiazide to 25 mg daily. She states that the last time this was done her blood pressure dropped. If that is helping with her swelling may decrease her losartan if needed if her blood pressure is dropping too much. She may need to drop the morning dose as her blood pressure in the evening seems to be more elevated. Continue aspirin 81 mg for antiplatelet therapy. Continue carvedilol 3. 125 twice daily and losartan 25 mg twice daily for heart cardiomyopathy. Continue Imdur 30 mg twice daily, she states that she was told to take it in this manner when she last went to [facility] and it has been tolerated in the past. Follow Up Return in about 3 months (around 06/20/2024). Pam Givens PA-C documented in this encounter Plan of Treatment Upcoming Encounters Date Type Department Care Team (Late st Contact Info) Description 12/22/2024 9:50 AM EST Office Visit [facility] [address] [facility] [address] [place] [address] Go Zazueta MD [address] [facility] [address] [place] [address] 01/15/2025 9:45 AM EDT Office Visit [facility] [address] [place] [address] Joy Skinner APRN [address] [facility] [address] [place] [address] Scheduled Orders Name Type Priority Associated Diagnoses Orde r Schedule Basic Metabolic Panel Lab Routine History of Takotsubo cardiomyopathy Primary hypertension Expected: 03/25/2024 (Approximate), Expires: 03/20/2025 documented as of this encounter Procedures Procedure Name Priority Date/Time Associated Diagnosis Comments ECG 12-LEAD Routine 03/20/2024 History of Takotsubo cardiomyopathy Lower extremity edema documented in this encounter Results * ECHO [...] The study is technically adequate for diagnosis. Pam Givens PA-C CV ECHO ORDERABLES Final Resu lt * ECG 12-LEAD (03/20/2024) Narrative 03/20/2024 Pam Givens PA-C ? 03/20/2024 11:00 AM ECG 12 Lead Date/Time: 03/20/2024 10:55 AM Performed by: Pam Givens PA-C Authorized by: Pam Givens PA-C ??Comparison: compared with previous ECG from 08/19/2022 Similar to previous ECG Rhythm: sinus rhythm BPM: 60 Other findings: non-specific ST-T wave changes Clinical impression: non-specific ECG Procedure Note Pam Givens PA-C - 03/20/2024 10:15 AM EDT Images from the original note were not included. Follow-up Visit Date: 03/20/2024 Patient Name: Rachael Fleming : 1945 Chief Complaint: Shortness of breath History of Present Illness: Rachael Fleming is a 78 y.o. female who ishere today for follow-up for history of Takotsubo cardiomyopathy,palpitations, hypertension. Patient returns early today because she ishaving some shortness of breath and lower extremity edema. She hasnoticed this over the last couple of months. It seems to worsenthroughout the day and get better when she elevates her legs at night.She has also noticed some shortness of breath. She is able to do thingsaround the house but otherwise does not have a significant workoutroutine. Patient checks her blood pressure on a regular basis and noticedher blood pressures become elevated in the evenings recently but otherwisehas been within normal limits. Since her last appointment her loop recorder has reached MARQUES. Problem List Takotsubo cardiomyopathy, 3 known episodes (1996, 2007, 2015): Initial diagnosis (1996) with subsequent recovery. [facility], 08/1997: Normal EF. Normal coronary arteries. Recurrence with diagnosis of Takotsubo syndrome (2007) at the [facility]. [facility], 06/2008: EF 20%. No significant coronary artery disease. Echo, 01/2009: EF 55%. C, 10/26/2016: EF 20%. Takotsubo/stress-induced cardiomyopathy withsevere LV systolic dysfunction. Near normal coronary arteries. Echo, 10/28/2016: EF 41%. Findings consistent with stress-induced(Takotsubo) cardiomyopathy. Mild MR, mild TR. Echo, 12/21/2016: EF normalized at 55%. Normal valves. Echo, 06/04/2017: EF 55%. Normal valves. Echo, 09/29/2017: EF 65%. Normal valves. 2018, evaluated at [facility] Echo, 09/10/2022: EF 60%. Mild MR. MPS, 09/28/2022: EF >70%. No evidence of ischemia. Recurrent palpitations/tachyarrhythmias: Normal Holter, 10/2011. Event recorder shows atrial tachycardia at 145 bpm, which issymptomatic. Recurrent episode, 06/2017. Bilateral carotid duplex, 08/30/2017: EGORGE 0-49%, LICA 0-49%. 14d Holter, 10/22/2017: Essentially normal Holter readings. Nosignificant arrhythmia. 30d event monitor, 12/22/2017: No Afib. No pauses. 1% PVCs. HR [id number] bpm, average 68 bpm. 11/2020 Monitor with brief PAT/MAT Loop recorder implant 01/2021 End-of-life of loop recorder 12/2023 Hypertension. DONNA: Non-compliant with CPAP machine. Peptic ulcer disease. Hiatal hernia. Irritable bowel syndrome Nephrolithiasis. Surgeries. Breast lumpectomies extracted and benign. Hysterectomy. Bilateral cataract extraction with lens implantation. Right breast resection. Subjective ROS Review of systems was performed and pertinent positives and negatives arenoted in the HPI. Current Outpatient Medications: albuterol sulfate HFA 108 (90 Base) MCG/ACT inhaler, Inhale 2 puffsEvery 4 (Four) Hours As Needed for Wheezing., Disp: , Rfl: ALPRAZolam (XANAX) 0.25 MG tablet, Take 1 tablet by mouth 2 (Two) Timesa Day As Needed for Anxiety., Disp: 10 tablet, Rfl: 0 aspirin 81 MG EC tablet, Take 1 tablet by mouth Daily., Disp: , Rfl: carvedilol (COREG) 3.125 MG tablet, , Disp: , Rfl: fluticasone (FLONASE) 50 MCG/ACT nasal spray, , Disp: , Rfl: hydroCHLOROthiazide (MICROZIDE) 12.5 MG capsule, Take 1 capsule by mouthEvery Morning., Disp: 90 capsule, Rfl: 3 isosorbide mononitrate (IMDUR) 30 MG 24 hr tablet, Take 1 tablet bymouth 2 (Two) Times a Day., Disp: 180 tablet, Rfl: 3 loratadine (CLARITIN) 10 MG tablet, Take 1 tablet by mouth Daily., Disp:90 tablet, Rfl: 0 losartan (COZAAR) 50 MG tablet, Take 0.5 tablets by mouth 2 (Two) Timesa Day., Disp: 90 tablet, Rfl: 3 nitroglycerin (Nitrostat) 0.4 MG SL tablet, Place 1 tablet under thetongue Every 5 (Five) Minutes As Needed for Chest Pain. Take no more than3 doses in 15 minutes., Disp: 25 tablet, Rfl: 5 omeprazole (priLOSEC) 40 MG capsule, Take 1 capsule by mouth Daily.,Disp: 90 capsule, Rfl: 0 zolpidem (AMBIEN) 5 MG tablet, , Disp: , Rfl: cyclobenzaprine (FLEXERIL) 5 MG tablet, Take 1 tablet by mouth 3 (Three)Times a Day As Needed for Muscle Spasms. (Patient not taking: Reported on03/20/2024), Disp: 15 tablet, Rfl: 0 Diclofenac Sodium (VOLTAREN) 1 % gel gel, , Disp: , Rfl: Allergies Allergen Reactions Penicillins Hives Phenergan [Promethazine Hcl] Hives Statins Myalgia Diclofenac Sodium Rash Metronidazole Rash Sudafed [Pseudoephedrine Hcl] Rash Sulfa Antibiotics Rash Objective Vitals: 03/20/24 0943 BP: 132/72 BP Location: Left arm Patient Position: Sitting Pulse: 60 SpO2: 97% Weight: 78.5 kg (173 lb) Height: 167.6 cm (66 ) Body mass index is 27.92 kg/m??. Physical Exam Constitutional: Well-developed, well-nourished, no acute distress HENT: Normocephalic, atraumatic moist oral mucosa Neck: Neck supple. No JVD present. No carotid bruits. Cardiovascular: Regular rate, regular rhythm and normal heart sounds. Nomurmur heard. Pulmonary/Chest: Clear to auscultation bilaterally without wheezing,rhonchi, or rails Abdominal: Nondistended Musculoskeletal: No obvious deformity Neurological: Alert and oriented x3, no focal deficits Extremities: Trace bilateral lower extremity edema, palpable PT pulsesbilaterally Lab Review: Lab Results Component Value Date GLUCOSE 105 (H) 08/19/2022 BUN 12 08/19/2022 CREATININE 0.70 10/19/2023 EGFRIFNONA 63 01/31/2021 EGFRIFAFRI >60 04/27/2018 BCR 15.6 08/19/2022 K 4.2 08/19/2022 CO2 27.0 08/19/2022 CALCIUM 10.2 08/19/2022 PROTENTOTREF 7.3 07/22/2022 ALBUMIN 4.60 08/19/2022 LABIL2 2.0 07/22/2022 AST 17 08/19/2022 ALT 16 08/19/2022 Lab Results Component Value Date WBC 8.06 08/19/2022 HGB 13.6 08/19/2022 HCT 39.6 08/19/2022 MCV 86.7 08/19/2022 PLT 369 08/19/2022 Lab Results Component Value Date CHOL 137 06/04/2017 CHLPL 230 (H) 07/22/2022 TRIG 177 (H) 07/22/2022 HDL 54 07/22/2022 LDL 144 (H) 07/22/2022 Lab Results Component Value Date TSH 1.144 09/29/2017 Lab Results Component Value Date HGBA1C 5.9 (H) 07/22/2022 Advance Care Planning ACP discussion was declined by the patient. Patient does not have anadvance directive, declines further assistance. ECG 12 Lead Date/Time: 03/20/2024 10:55 AM Performed by: Pam Givens PA-C Authorized by: Pam Givens PA-C Comparison: compared with previousECG from 08/19/2022 Similar to previous ECG Rhythm: sinus rhythm BPM: 60 Other findings: non-specific ST-T wave changes Clinical impression: non-specific ECG Assessment / Plan Assessment: 1. History of Takotsubo cardiomyopathy 2. Primary hypertension 3. Mixed hyperlipidemia 4. Lower extremity edema Plan: Patient is experiencing some lower extremity edema as well as some mildshortness of breath. Given her history of Takotsubo cardiomyopathy wewill get an echocardiogram for further evaluation of structural orvalvular heart abnormalities. EKG today is unchanged from previous EKG. Will increase her hydrochlorothiazide to 25 mg daily. She states that thelast time this was done her blood pressure dropped. If that is helpingwith her swelling may decrease her losartan if needed if her bloodpressure is dropping too much. She may need to drop the morning dose bushra blood pressure in the evening seems to be more elevated. Continue aspirin 81 mg for antiplatelet therapy. Continue carvedilol 3. 125 twice daily and losartan 25 mg twice daily forheart cardiomyopathy. Continue Imdur 30 mg twice daily, she states that she was told to take itin this manner when she last went to [facility] and it has beentolerated in the past. Follow Up Return in about 3 months (around 06/20/2024). Pam Givens PA-C Pam Givens PA-C ECG ORDERABLES Final Result documented in this encounter Visit Diagnoses Diagnosis History of Takotsubo cardiomyopathy- Primary Takotsubo syndrome Primary hypertension Unspecified essential hypertension Mixed hyperlipidemia Lower extremity edema Edema History of Takotsubo cardiomyopathy Takotsubo syndrome Primary hypertension Unspecified essential hypertension documented in this encounter Care Teams Operations Technician Relationship Specialty Start Date End Date Franko Juarez MD PCP - General Family Medicine 12/21/22 documented as of this encounter
--- OUTSIDE RECORDS SUMMARY | 2024-10-02 13:08 | XMS_ITS | Encounter Summary ---
[facility] Address [address] [place] [address] Care Team Providers Care Ranch Helper Name Role Phone Franko Juarez MD Primary Care Provider +1- [phone] Encounter Details Date Type Department Care Team (Latest Contact Info) Description 09/15/2024 Travel Social History Tobacco Use Types Packs/Day Years [...] on file documented as of this encounter Plan of Treatment Upcoming Encounters Date Type Department Care Team (Late st Contact Info) Description 12/22/2024 9:50 AM EST Office Visit [facility] ORTHOPEDICS & SPORTS MEDICINE [address] [facility] [address] [place] [address] Go Zazueta MD [address] [facility] [address] [place] [id number] 01/15/2025 9:45 AM EDT Office Visit [facility] C[facility] [address] [facility] [address] [place] [phone] Joy Skinner APRN [address] [facility] [address] [place] [address] documented as of this encounter Visit Diagnoses Not on filedocumented in this encounter Care Teams Ranch Helper Relationship Specialty Start Date End Date Franko Juarez MD PCP - General Family Medicine 12/21/22 documented as of this encounter
--- OUTSIDE RECORDS SUMMARY | 2024-10-02 13:08 | XMS_ITS | Encounter Summary ---
[facility] Address [address] [place] [address] Care Team Providers Care Canceling Machine Operator Name Role Phone Franko Juarez MD Primary Care Provider +1- [phone] Encounter Details Date Type Department Care Team (Late st Contact Info) Description 03/30/2024 Telephone [facility] CARDIOLOGY [address] [place] [address] Abebe Diego MD [address] [facility] [address] [place] [address] Social History Tobacco Use Types Packs/Day Years [...] encounter Miscellaneous Notes * Telephone Encounter - Grisel Irwin RN - 03/30/2024 10:23 AM EDT Spoke with patient, advised of echo results: Overall, acceptable for age. Normal heart function. Trace to mild MR. No need for intervention. Canrepeat echo in 3 to 5 years or earlier if symptoms change. Understanding verbalized. documented in this encounter Plan of Treatment Upcoming Encounters Date Type Department Care Team (Late st Contact Info) Description 12/22/2024 9:50 AM EST Office Visit [facility] ORTHOPEDICS & SPORTS MEDICINE [address] [facility] [address] [place] [phone] Go Zazueta MD [address] [facility] [address] [place], [place] [phone] 01/15/2025 9:45 AM EDT Office Visit [facility] C[facility] [address] [facility] [address] [place] [phone] Joy Skinner APRN [address] [facility] [address] [place] [address] documented as of this encounter Visit Diagnoses Not on filedocumented in this encounter Care Teams Canceling Machine Operator Relationship Specialty Start Date End Date Franko Juarez MD PCP - General Family Medicine 12/21/22 documented as of this encounter
--- OUTSIDE RECORDS SUMMARY | 2024-10-02 13:08 | XMS_ITS | Encounter Summary ---
Author Organization [facility] Address [address] [place] [address] Care Team Providers Care Applications Sales Representative Name Role Phone Franko Juarez MD Primary Care Provider +1- [phone] Reason for Visit * Reason Comments Follow-up 2 month f/u --- Oste oarthritis of right knee. Aspiration and cortisone injection 11/15/2023 Encounter Details Date Type Department Care Team (Late st Contact Info) Description 01/12/2024 9:20 AM EDT Office Visit [facility]INE [address] [place] [address] Go Zazueta MD [address] [place] [address] Osteoarthritis of right knee, unspecified osteoarthritis type (Primary Dx); Osteoarthritis of left knee, unspecified osteoarthritis type; Cyst of left knee joint Social History Tobacco Use Types Packs/Day Years [...] Sign Reading Time Taken Comments Blood Pressure 122/84 01/12/2024 8:34 AM EDT Pulse - - Temperature - - Respiratory Rate - - Oxygen Saturation - - Inhaled Oxygen Concentration - - Weight 75.8 kg (167 lb 3.2 oz) 01/12/2024 8:34 A M EDT Height 167.6 cm (5' 5.98 ) 01/12/2024 8:34 AM ED T Body Mass Index 27 01/12/2024 8:34 AM EDT documented in this encounter Progress Notes * Go Zazueta MD - 01/12/2024 9:20 AM EDT Images from the original note were not included. [facility] Note Subjective Chief Complaint Patient presents with Follow-up 2 month f/u --- Osteoarthritis of right knee. Aspiration and cortisone injection 11/15/2023 HPI It has been 2 month(s) since Ms. Fleming's last visit. She returns to clinic today for follow-up of bilateral knee pain. The issue has been ongoing for 1 year(s). She rates her pain a 4/10 on the pain scale. Previous/current treatments: bracing and NSAIDS and cortisone injection right knee 11/15/2023. Current symptoms: pain, popping, and stiffness. The pain is worse with walking, climbing stairs, sleeping, and rising from seated position; resting, ice, and heat improve the pain. Overall, she is doing better. Right knee bothers her more than the left. Injection in her right knee did help, butthe pain is starting to return. She would like to have injections of both knees if possible. I have reviewed the following portions of [...] Diagnosis Date Acute hemorrhagic cystitis hospitalized at [facility], 06/21/2015 Asthma Atrial tachycardia Chest pain [...] disease) 11/05/2016 Takotsubo cardiomyopathy Initially diagnosed at [place] 2007. EF 20 at that time. 2009 EF 55% Torn meniscus 11/17/2023 Past Surgical History: Procedure Laterality Date BREAST LUMPECTOMY Right 20 years ago- extracted and benign CARDIAC CATHETERIZATION 2002 no stents. CARDIAC CATHETERIZATION N/A 10/26/2016 Procedure: Left Heart Cath; Surgeon: Lisa Hensley MD; Location: [facility] CATH INVASIVE LOCATION; Service: CARDIAC ELECTROPHYSIOLOGY PROCEDURE N/A 01/31/2021 Procedure: Loop insertion-; Surgeon: Abebe Diego MD; Location: [facility] CATH INVASIVE LOCATION; Service: Cardiovascular; Laterality: N/A; [...] tablet Take 1 tablet by mouth Daily. cyclobenzaprine (FLEXERIL) 5 MG tablet Take 1 tablet by mouth 3 (Three) Times a Day As Needed for Muscle Spasms. 15 tablet 0 Diclofenac Sodium (VOLTAREN) 1 % gel gel fluticasone (FLONASE) 50 MCG/ACT nasal spray hydroCHLOROthiazide (MICROZIDE) 12.5 MG capsule Take 1 capsule by mouth Every Morning. 90 capsule 3 isosorbide mononitrate (IMDUR) 30 MG 24 [...] capsule 0 zolpidem (AMBIEN) 5 MG tablet [DISCONTINUED] carvedilol (COREG) 3.125 MG tablet Take 1 tablet by mouth 2 (Two) Times a Day With Meals. 180 tablet 3 No current facility-administered medications on file prior [...] is not hyperactive. Objective Physical Exam BP 122/84 Ht 167.6 cm (65.98 ) Wt 75.8 kg (167 lb 3.2 oz) BMI 27.00 kg/m?? Body mass index is 27 kg/m??. General: Mental Status: Alert Appearance: Cooperative, [...] - - Large Joint Arthrocentesis: bilateral knee 3. Cyst of left knee joint 1. Osteoarthritis of right knee, unspecified osteoarthritis type 2. Osteoarthritis of left knee, unspecified osteoarthritis type 3. Cyst of left knee joint I reviewed my findings with the patient and her today. Discussed options for her knees, shanna would like to try intra-articular injections in both knees today. I will see her back in 4 months, but sooner for any problems. Her machine riveter has recommended that she avoid surgery if at all possible. I do not believe that surgical intervention would be particularly helpful anyway at this time. Procedure Note: The potential benefits of performing [...] The patient tolerated the procedures well, experiencing 94% improvement in the right knee and 94% improvement in the left knee a few minutes following the injections. There were no complications. Band-Aids were applied to the injection sites. Post-procedural instructions were given to the patient and/or their caregiver. Return in about 4 months (around 05/13/2024). Go Zazueta MD 01/12/24 10:00 EDT Dictated Utilizing Dragon Dictation * Aydee Hermosillo MA - 01/12/2024 9:20 AM EDTAssociated Order(s): - Large Joint Arthrocentesis: bilateral knee Procedure - Large Joint Arthrocentesis: bilateral knee on 01/12/2024 9:44 AM Indications: pain Details: 21 G needle, [...] called to verify the correctpatient, procedure, equipment, family support specialist and site/side marked as required. Patient was prepped and draped in the usual sterile fashion. documented in this encounter Plan of Treatment Upcoming Encounters Date Type Department Care Team (Late st Contact Info) Description 12/22/2024 9:50 AM EST Office Visit [facility] [address] [place] [address] Go Zazueta MD [address] [facility] [address] [place] [address] 01/15/2025 9:45 AM EDT Office Visit [facility] CARDIOLOGY 1720 [facility] 400 [place] [address] Joy Skinner APRN [address]20 [facility] E [address] [place], [place] [id number] documented as of this encounter Procedures Procedure Name Priority Date/Time Associated Diagnosis Comments [place] ARTHROCENTESIS ASPIR&/INJ MAJOR JT/BURSA W/O US Routine 01/12/2024 9:44 AM EDT Osteoarthritis of right knee, unspecified osteoarthritis type Osteoarthritis of left knee, unspecified osteoarthritis type documented in this encounter Results * [place] ARTHROCENTESIS ASPIR&/INJ MAJOR JT/BURSA W/O US (01/12/2024 9:44 AM EDT) Narrative Aydee Hermosillo MA - 01/12/2024 9:44 AM EDT Aydee Hermosillo MA ? 01/12/2024 10:00 AM - Large Joint Arthrocentesis: bilateral knee on 01/12/2024 9:44 AM Indications: pain Details: 21 G needle, [...] to verify the correct patient, procedure, equipment, family support specialist and site/side marked as required. Patient was prepped and draped in the usual sterile fashion. Go Zazueta MD PROCEDURE/MINOR SURGICAL ORDER SUHAIL Final Result documented in this encounter Visit Diagnoses Diagnosis Osteoarthritis of right knee, unspecified osteoarthritis type- Primary Osteoarthritis of left knee, unspecified osteoarthritis type Cyst of left knee joint documented in this encounter Administered Medications Inactive Administered Medications - up to 3 most recent administrations Medication Order MAR Action Action Date Dose Rate Site ropivacaine (NAROPIN) 0.5 % injection 4 mL 4 mL, One-Time Injection, Starting on Wed01/12/24 at 0944, For 1 doseIndications:Osteoarthritis of right knee, unspecified osteoarthritis type,Osteoarthritis of left knee, unspecified osteoarthritis type Given 01/12/2024 9:44 AM EDT 4 mL Knee Left ropivacaine (NAROPIN) 0.5 % injection 4 mL 4 mL, One-Time Injection, Starting on Wed01/12/24 at 0944, For 1 doseIndications:Osteoarthritis of right knee, unspecified osteoarthritis type,Osteoarthritis of left knee, unspecified osteoarthritis type Given 01/12/2024 9:44 AM EDT 4 mL Knee Right triamcinolone acetonide (KENALOG-40) injection 40 mg 40 mg, One-Time Injection, Starting on Wed01/12/24 at 0944, For 1 doseIndications:Osteoarthritis of right knee, unspecified osteoarthritis type,Osteoarthritis of left knee, unspecified osteoarthritis type Given 01/12/2024 9:44 AM EDT 40 mg Knee Left triamcinolone acetonide (KENALOG-40) injection 40 mg 40 mg, One-Time Injection, Starting on Wed01/12/24 at 0944, For 1 doseIndications:Osteoarthritis of right knee, unspecified osteoarthritis type,Osteoarthritis of left knee, unspecified osteoarthritis type Given 01/12/2024 9:44 AM EDT 40 mg Knee Right documented in this encounter Care Teams Applications Sales Representative Relationship Specialty Start Date End Date Franko Juarez MD PCP - General Family Medicine 12/21/22 documented as of this encounter
--- OUTSIDE RECORDS SUMMARY | 2024-10-02 13:08 | XMS_ITS | Encounter Summary ---
Author Organization [facility] Address [address] [place] [address] Care Team Providers Care Cigar Head Pegger Name Role Phone Franko Juarez MD Primary Care Provider +1- [phone] Encounter Details Date Type Department Care Team (Late st Contact Info) Description 01/10/2024 Patient rounding ([facility] [place] [facility] C[facility] [address] [place] [address] [address] [place] [address] Andreia Ontiveros RegSched Rep Social History Tobacco Use Types Packs/Day Years [...] on file documented as of this encounter Progress Notes * Andreia Ontiveros MA - 01/10/2024 2:56 PM EDT January 10, 2024 [place], march I speak with Rachael Fleming? My name is ANDREIA ONTIVEROS I am with [facility] C[facility] [address] [facility] 400 [facility] [phone] . Before we get started may I verify your date of ? 1945 I am calling to officially welcome you to our practice and ask about your recent visit. Is this a good time to talk? yes Tell me about your visit with us. What things went well? Everything. The provider answered all my questions. I feel better! We're always looking for ways to make our patients' experiences even better. Do you have recommendations on ways we may improve? no Overall were you satisfied with your first visit to our practice? yes I appreciate you taking the time to speak with me today. Is there anything else I can do for you? no Thank you, and have a great day. documented in this encounter Plan of Treatment Upcoming Encounters Date Type Department Care Team (Late st Contact Info) Description 12/22/2024 9:50 AM EST Office Visit [facility] ORTHOPEDICS & SPORTS MEDICINE [address] [facility] [address] [place] [address] Go Zazueta MD [address]60 [facility] 101 [place] [address] 01/15/2025 9:45 AM EDT Office Visit [facility] C[facility] [address] [facility] [address] [place] [address] Joy Skinner APRN [address] [facility] [address] [place], [place] [phone] documented as of this encounter Visit Diagnoses Not on filedocumented in this encounter Care Teams Cigar Head Pegger Relationship Specialty Start Date End Date Franko Juarez MD PCP - General Family Medicine 12/21/22 documented as of this encounter
--- OUTSIDE RECORDS SUMMARY | 2024-10-02 13:08 | XMS_ITS ---
Author Name Kev Underwood Address [address] [place] [address] Organization Unknown Address [address] [place] [address] ALLERGIES AND ADVERSE REACTIONS No information ASSESSMENT No information CHIEF COMPLAINT No information MEDICATIONS No information OBJECTIVE DATA No information PHYSICAL EXAMINATION No information TREATMENT PLAN Planned Care Start Date Provider Encounter for Check-up [id number] [facility] PROBLEMS No information RESULTS No information REVIEW OF SYSTEMS No information SUBJECTIVE DATA No information VITAL SIGNS No information
--- OUTSIDE RECORDS SUMMARY | 2024-10-02 13:09 | XMS_ITS | Encounter Summary ---
Author Organization [facility] Address [address] [place] [address] Care Team Providers Care Mdm Sr Name Role Phone Nurys Curtis APRN Primary Care Provider +1- [phone] Encounter Details Date Type Department Care Team (Late st Contact Info) Description 09/11/2022 Telephone [facility] CARDIOLOGY [address]20 [facility] [address] [place] [address] Abebe Diego MD [address]20 [facility] [address] [place] [address] Social History Tobacco Use Types Packs/Day Years Used Date Smoking Tobacco: Never Smokeless Tobacco: Never Alcohol Use Standard Drinks/Week Comments No 0 (1 standard drink = 0.6 oz [...] Miscellaneous Notes * Telephone Encounter - Grisel Irwin, RN - 09/11/2022 1:52 PM EST Spoke with patient, advised of below ----- Message from Joy Skinner APRN sent at 09/11/2022 8:53 AM EST ----- Please let patient know that her echo overall look good. EF is normal. Only mild MR. Instruct her to keep her appointment for her stress test on the . ----- Message ----- From: Abebe Diego MD Sent: 09/10/2022 1:54 PM EST To: Joy Skinner APRN documented in this encounter Plan of Treatment Upcoming Encounters Date Type Department Care Team (Late st Contact Info) Description 12/22/2024 9:50 AM EST Office Visit [facility] ORTHOPEDICS & SPORTS MEDICINE 3000 [facility] [address] [place] [phone] Go Zazueta MD [address] [facility] [address] [place] [phone] 01/15/2025 9:45 AM EDT Office Visit [facility] CARDIOLOGY [address]20 [facility] 400 [place] [address] Joy Skinner APRN [address] [facility] [address] [place] [phone] documented as of this encounter Visit Diagnoses Not on filedocumented in this encounter Care Teams Mdm Sr Relationship Specialty Start Date End Date Nurys Curtis APRN 6 [place] [address] PCP - General Family Medicine 07/22/22 12/20/22 documented as of this encounter
--- OUTSIDE RECORDS SUMMARY | 2024-10-02 13:09 | XMS_ITS | Encounter Summary ---
Author Organization [facility] Address [address] [place] [address] Care Team Providers Care Director Of Design Name Role Phone Franko Juarez MD Primary Care Provider +1- [phone] Reason for Visit * Reason Onset Date Comments -KYRA ORDERS 04/15/2023 Encounter Details Date Type Department Care Team (Late st Contact Info) Description 04/15/2023 Telephone [facility] ORTHOPEDICS & SPORTS MEDICINE [address] [place] [address] Zaire Selby MD [facility] [place] [address] -MRI ORDERS Social History Tobacco Use Types Packs/Day Years [...] encounter Miscellaneous Notes * Telephone Encounter - Mariana Diamond RegSched Rep - 04/15/2023 1:41 PM EDT Caller: Fleming Rachael Yazanxenia Yazanxenia Relationship: Self Best call back number: [phone] What orders are you requesting (i.e. lab or imaging): MRI In what timeframe would the patient need to come in: ANY Where will you receive your lab/imaging services: Additional notes: WAITING TO BE SCHEDULED FOR MRI documented in this encounter Plan of Treatment Upcoming Encounters Date Type Department Care Team (Late st Contact Info) Description 12/22/2024 9:50 AM EST Office Visit [facility] MEDICINE 3000 [facility] [address] [place] [phone] Go Zazueta MD [address]60 [facility] 101 [place] [address] 01/15/2025 9:45 AM EDT Office Visit [facility] CARDIOLOG[facility] 1720 [facility] 400 [place] [phone] Joy Skinner APRN [address] [facility] [address] [place] [address] documented as of this encounter Visit Diagnoses Not on filedocumented in this encounter Care Teams Director Of Design Relationship Specialty Start Date End Date Franko Juarez MD PCP - General Family Medicine 12/21/22 documented as of this encounter
--- OUTSIDE RECORDS SUMMARY | 2024-10-02 13:09 | XMS_ITS | Encounter Summary ---
Author Organization [facility] Address [address] [place] [address] Care Team Providers Care Special Events Driver Name Role Phone Franko Juarez MD Primary Care Provider +1- [phone] Reason for Visit * Reason Onset Date Comments DR. JOSIE ECHEVERRIA 07/14/2023 Encounter Details Date Type Department Care Team (Late st Contact Info) Description 07/14/2023 Telephone [facility] ORTHOPEDICS & SPORTS MEDICINE [address] [place] [address] Zaire Selby MD [address] [place] [address] DR. JOSIE ECHEVERRIA Social History Tobacco Use Types Packs/Day Years [...] Encounter - Mariana Diamond RegSched Rep - 07/14/2023 4:17 PM EDT Caller: DOUGLAS Relationship: JOHNNY [facility] PCP Best call back number: [phone] Who is your current provider: JOSIE Who would you like your new provider to be: CHAU What are your reasons for transferring care: LOOKING FOR 2ND OPINION, ON GOING PAIN, KNEE NOT GETTING BETTER, FAMILY MEMBER REFERRED HER TO DR. ZAZUETA. Additional notes: [facility] PCP WOULD LIKE THE CALL BACK PLEASE ASK FOR DOUGLAS . documented in this encounter Plan of Treatment Upcoming Encounters Date Type Department Care Team (Late st Contact Info) Description 12/22/2024 9:50 AM EST Office Visit [facility] ORTHOPEDICS & SPORTS MEDICINE 3000 [facility] [address] [place] [address] Go Zazueta MD [address]60 [facility] [address] [place] [address] 01/15/2025 9:45 AM EDT Office Visit [facility] CARDIOLOGY 1720 [facility] [address] [place] [phone] Joy Skinner APRN 1720 [facility] E [address] [place] [address] documented as of this encounter Visit Diagnoses Not on filedocumented in this encounter Care Teams Special Events Driver Relationship Specialty Start Date End Date Franko Juarez MD PCP - General Family Medicine 12/21/22 documented as of this encounter
--- OUTSIDE RECORDS SUMMARY | 2024-10-02 13:09 | XMS_ITS | Encounter Summary ---
[facility] Address [address] [place] [address] Care Team Providers Care New Grad Rn Name Role Phone Nurys Curtis TOWER HOIST OPERATOR Primary Care Provider +1- [phone] Encounter Details Date Type Department Care Team (Late st Contact Info) Description 08/28/2022 Telephone [facility] PRIMARY CARE [address] [place] [phone] Nurys Curtis TOWER HOIST OPERATOR [address] [place], [place] [phone] Social History Tobacco Use Types Packs/Day Years [...] encounter Miscellaneous Notes * Telephone Encounter - Ceci Lowery MA - 08/28/2022 2:09 PM EDT Patient has an upcoming appointment will refill until her appointment documented in this encounter Plan of Treatment Upcoming Encounters Date Type Department Care Team (Late st Contact Info) Description 12/22/2024 9:50 AM EST Office Visit [facility] ORTHOPEDICS & SPORTS MEDICINE 3000 [facility] [address] [place] [phone] Go Zazueta MD [address]60 [facility] 101 [place], [place] [phone] 01/15/2025 9:45 AM EDT Office Visit [facility] CARDIOLOGY 1720 [facility] 400 [place] [address] Joy Skinner APRN 1720 [facility] E [facility] 400 [place] [address] documented as of this encounter Visit Diagnoses Not on filedocumented in this encounter Care Teams New Grad Rn Relationship Specialty Start Date End Date Nurys Curtis, TOWER HOIST OPERATOR 6 [place] [address] PCP - General Family Medicine 07/22/22 12/20/22 documented as of this encounter
--- OUTSIDE RECORDS SUMMARY | 2024-10-02 13:09 | XMS_ITS | Encounter Summary ---
[facility] Address [address] [place] [id number] Care Team Providers Care Mandarin Teacher Name Role Phone Nurys Curtis APRN Primary Care Provider +1- [phone] Reason for Visit * Reason Onset Date Comments Med Refill 10/07/2022 Encounter Details Date Type Department Care Team (Late st Contact Info) Description 10/07/2022 Refill [facility]IMARY [facility] [address] [place] [phone] Nurys Curtis APRN [address] [place] [address] Social History Tobacco Use Types Packs/Day Years [...] encounter Miscellaneous Notes * Telephone Encounter - Delma Wilkins MA - 10/07/2022 10:11 AM EST Sent in documented in this encounter Plan of Treatment Upcoming Encounters Date Type Department Care Team (Late st Contact Info) Description 12/22/2024 9:50 AM EST Office Visit [facility] ORTHOPEDICS & SPORTS MEDICINE 3000 [facility] [address] [place] [phone] Go Zazueta MD 1760 [facility] 101 [place], [place] [phone] 01/15/2025 9:45 AM EDT Office Visit [facility] CARDIOLOGY 1720 [facility] [address] [place] [phone] Joy Skinner APRN [address]20 [facility] E [address] [place] [address] documented as of this encounter Visit Diagnoses Not on filedocumented in this encounter Care Teams Mandarin Teacher Relationship Specialty Start Date End Date Nurys Curtis APRN [address] [place] [address] PCP - General Family Medicine 07/22/22 12/20/22 documented as of this encounter
--- OUTSIDE RECORDS SUMMARY | 2024-10-02 13:09 | XMS_ITS | Encounter Summary ---
[facility] Address [address] [place] [address] Care Team Providers Care Roller Mill Operator Name Role Phone Franko Juarez MD Primary Care Provider +1- [phone] Reason for Visit * Reason Onset Date Comments Med Refill 03/15/2023 Encounter Details Date Type Department Care Team (Late st Contact Info) Description 03/15/2023 Refill [facility] CARDIOLOGY 1720 [facility] [address] [place] [phone] Abebe Diego MD [address] [facility] [address] [place] [address] Med Refill Social History Tobacco Use Types Packs/Day Years [...] Description 12/22/2024 9:50 AM EST Office Visit [facility] ORTHOPEDICS & SPORTS MEDICINE 3000 [facility] [address] [place] [address] Go Zazueta MD [address] [facility] [address] [place], [place] [phone] 01/15/2025 9:45 AM EDT Office Visit [facility] CARDIOLOG[facility] 1720 [facility] 400 [place] [address] Joy Skinner APRN 1720 [facility] 400 [place], [place] [phone] documented as of this encounter Visit Diagnoses Diagnosis Takotsubo cardiomyopathy Takotsubo syndrome documented in this encounter Care Teams Roller Mill Operator Relationship Specialty Start Date End Date Franko Juarez MD PCP - General Family Medicine 12/21/22 documented as of this encounter
--- OUTSIDE RECORDS SUMMARY | 2024-10-02 13:09 | XMS_ITS | Encounter Summary ---
Author Organization [facility] Address [address] [place] [address] Care Team Providers Care Roller Skate Repairer Name Role Phone Franko Juarez MD Primary Care Provider [phone] Reason for Referral * MRI/CAT/PET Scan (Routine) - Closed Specialty Diagnoses / Procedures Referred By Contac t Referred To Contact Radiology Diagnoses Acute pain of right knee Procedures MRI Knee Right Without Contrast Go Zazueta MD [address] [place] [address] Phone: tel: fax: [address] [address] Phone: tel: Referral ID Status Reason Start Date Expiration Date Visits Re quested Visits Authorized [id number] Closed 11/10/2023 11/09/2024 1 1 Reason for Visit * Reason Comments Follow-up MRI f/u - Left knee Encounter Details Date Type Department Care Team (Late st Contact Info) Description 11/10/2023 9:10 AM EST Office Visit [facility] [address] [place] [address] Go Zazueta MD [facility] [place] [address] Acute pain of right knee (Primary Dx); Cyst of left knee joint Social History [...] Sign Reading Time Taken Comments Blood Pressure - - Pulse - - Temperature - - Respiratory Rate - - Oxygen Saturation - - Inhaled Oxygen Concentration - - Weight 76.2 kg (168 lb) 11/10/2023 8:29 AM EST Height 165.1 cm (5' 5 ) 11/10/2023 8:29 AM EST Body Mass Index 27.96 11/10/2023 8:29 AM EST documented in this encounter Progress Notes * Go Zazueta MD - 11/10/2023 9:10 AM EST Images from the original note were not included. [facility] Orthopaedic Surgery Clinic Note Subjective Chief Complaint Patient presents with Follow-up MRI f/u - Left knee HPI It has been 2 month(s) since Ms. Fleming's last visit. She returns to clinic today for follow-up of left knee pain. The issue has been ongoing for 10 month(s). She rates her pain a 9/10 on the pain scale. Previous/current treatments: bracing and cane/walker. Current symptoms: pain and stiffness. The pain is worse with twisting/standing ; resting, sitting, and elevating the extremity improve the pain. Overall, she is doing better. She is here today to review the MRI results of her left knee. However, in the meantime she had the onset of right knee pain when she was stepping up onto her porch 3 days ago, and felt a pop in the knee with pain afterwards. She was unable to bear weight initially, but it is about 50% better since 3 days ago. She is able to put weight on it somewhat now, but still having pain and difficulty with the knee. I have reviewed the following portions [...] Diagnosis Date Acute hemorrhagic cystitis hospitalized at [facility], 06/21/2015 Asthma Atrial tachycardia Chest pain 06/04/2017 CHF (congestive heart failure) Coronary artery disease 11/05/2016 GERD (gastroesophageal reflux disease) Heart murmur Hiatal hernia Hyperlipidemia Hypertension IBS (irritable bowel syndrome) Irritable bowel Myocardial infarction NSTEMI 10/2016, cath without intervention, small vessel disease, medical management Nephrolithiasis DONNA (obstructive sleep apnea) could not tolerate cpap. Palpitations 11/05/2016 Recurrent-tachyarrhythmias Normal Holter, October 2011. Event recorder shows atrial tachycardia at145 beats per minute, which is symptomatic. Peptic ulcer disease PUD (peptic ulcer disease) 11/05/2016 Takotsubo cardiomyopathy Initially diagnosed at [place] 2008. EF 20 at that time. 2008 EF 55% Past Surgical History: Procedure Laterality Date BREAST LUMPECTOMY Right 20 years ago- extracted and benign CARDIAC CATHETERIZATION 2002 no stents. CARDIAC CATHETERIZATION N/A 10/26/2016 Procedure: Left Heart Cath; Surgeon: Lisa Hensley MD; Location: [email or web address] CATH INVASIVE LOCATION; Service: CARDIAC ELECTROPHYSIOLOGY PROCEDURE N/A 01/31/2021 Procedure: Loop insertion-; Surgeon: Abebe Diego MD; Location: [facility] CATH INVASIVE LOCATION; Service: Cardiovascular; Laterality: N/A; [...] children: 2 Tobacco Use Smoking status: Never Smokeless tobacco: Never Vaping Use Vaping Use: Never used Substance and Sexual Activity Alcohol use: Not [...] mouth Daily. carvedilol (COREG) 3.125 MG tablet Take 1 tablet by mouth 2 (Two) Times a Day With Meals. 180 tablet 3 cyclobenzaprine (FLEXERIL) 5 MG tablet Take 1 [...] Sulfa Antibiotics Rash Review of Systems Constitutional: Negative. HENT: Negative. Eyes: Negative. Respiratory: Negative. Cardiovascular: Negative. Gastrointestinal: Negative. Endocrine: Negative. Genitourinary: Negative. Musculoskeletal: Positive for arthralgias. Skin: Negative. Allergic/Immunologic: Negative. Neurological: Negative. Hematological: Negative. Psychiatric/Behavioral: Negative. Objective Physical Exam Ht 165.1 cm (65 ) Wt 76.2 kg (168 lb) BMI 27.96 kg/m?? Body mass index is 27.96 kg/m??. General: Mental Status: Alert Appearance: Cooperative, in no acute distress Build and Nutrition: Well-nourished well-developed female Orientation: Alert and oriented to person, place and time Posture: Normal Gait: Sitting in a wheelchair Integument: Right knee: no skin lesions, no rash, no ecchymosis Left knee: no skin lesions, no rash, no ecchymosis Lower Extremities: Right Knee: Tenderness: Posterior tenderness Effusion: 1-2+ Swelling: None Crepitus: None Atrophy: None Range of motion: Extension: 0?? Flexion: 110?? Instability: No varus laxity, no valgus laxity, negative anterior drawer Deformities: None Negative Stinchfield on the right Guarded motion right knee Straight leg raise intact Left Knee: Tenderness: Lateral tenderness Effusion: None Swelling: None Crepitus: None Atrophy: None Range of motion: Extension: 0?? Flexion: 120?? Instability: No varus laxity, no valgus laxity, negative anterior drawer Deformities: None Imaging/Studies Imaging Results (Last 24 Hours) Procedure Component Value Units Date/Time XR Knee 4+ View Right [[id number]] Resulted: 11/10/23899 Updated: 11/10/23899 Narrative: Right Knee Radiographs Indication: right knee pain Views: Standing AP's and skiers of both knees, with lateral and sunrise views of the right knee Comparison: no prior studies available Findings: No acute bony abnormalities, patellofemoral degeneration and [id number] contact lateral facet, with no unusual bony features. MRI KNEE LEFT W WO CONTRAST Date of Exam: 10/19/2023 7:45 AM EST Indication: Knee cyst on MRI April 2023, with persistent pain. Comparison: Left knee MRI 04/20/2023 Technique: Routine multiplanar/multisequence images of the left knee were obtained before and afterthe uneventful intravenous administration of 15 mL Multihance. Findings: Osseous Structures and Intra-Articular Bone marrow signal intensity is normal. No osseous contusions or fractures. No significant joint effusion. No intra-articular loose bodies. Large multiloculated intra-articular cyst laterally deep tothe iliotibial band is similar to previous exam. No pathologic enhancement. It measures approximately 5 x 2.3 x 5.8 cm. Allowing for differences in measurement technique its not significantly changed. There is some prominent fat signal intensity superior to this deep to a mildly thinned vastus lateralis muscle. Edema seen along its superior posterior extent has resolved. Severe patellofemoral compartment joint space narrowing. Mild medial and lateral compartment joint space narrowing. Ligaments The anterior cruciate ligament and posterior cruciate ligaments are intact. Medial collateral ligament and lateral collateral ligament complex are intact. Menisci There is a questionable horizontal tear of the body of the lateral meniscus with extension to the free edge. This could be the origin of the large multiloculated cyst in the lateral aspect. There are no medial meniscal tears. Extensor compartment Patella has lateral subluxation. There is patella jesus. Extensor mechanism is intact. Cartilage Full-thickness cartilage loss at the patella most pronounced at the apex and lateral facet. Full-thickness cartilage loss of the lateral and superior trochlea. Diffuse thinning of cartilage in the medial lateral compartment. Full- thickness loss of the posterior medial femoral condyle with button osteophyte measuring 11 mm. Small focal full-thicknessdefect in the more central portion of the medial compartment. Full-thickness cartilage defect with button osteophyte lateral aspect lateral femoral condyle measures about 4 mm. Soft tissues No soft tissue masses. No Miner cyst or evidence of recent Miner cyst rupture. Miscellaneous Iliotibial band is normal. Popliteus muscle and tendon are normal in appearance. IMPRESSION: Impression: 1.Multiloculated intra-articular cyst likely due to meniscal tear has no aggressive features. It isunchanged in size since previous study measuring maximally 5.8 cm. The associated edema along its superior extent has resolved. 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 Mild medial lateral compartment arthritis. 3.Suspected horizontal tear body lateral meniscus with extension to free edge and periphery. Electronically Signed: Maliha Jordan MD 10/19/2023 11:25 AM EST Workstation ID: [id number] I reviewed the above imaging, and agree with findings. Assessment and Plan Diagnoses and all orders for this visit: 1. Acute pain of right knee (Primary) - XR Knee 4+ View Right - MRI Knee Right Without Contrast; Future 2. Cyst of left knee joint 1. Acute pain of right knee 2. Cyst of left knee joint I reviewed my findings with the patient. Regarding her right knee, she had the acute onset of pain and a pop on Wednesday, with inability to bear weight initially, which is slowly improved, but certainly not resolved. X-ray showed no clear evidence of acute bony abnormality, and at this point I recommended further imaging with MRI. I would like for that to be done in the next week, and I will see her back after this been completed for review. Continue with ice and activity modifications in the meantime. Regarding her left knee, she does have a large cyst, likely associated with a lateral meniscus tear. She is currently doing well with that knee, and no intervention necessary at this time. An aspiration and injection can be considered in the future, which we discussed today. However, her right kneeis taking precedence currently secondary to the acute nature. Return for After Imaging Study. Go Zazueta MD 11/10/23 09:49 EST documented in this encounter Plan of Treatment Upcoming Encounters Date Type Department Care Team (Late st Contact Info) Description 12/22/2024 9:50 AM EST Office Visit [facility] [address] [facility] [address] [place] [address] Go Zazueta MD [address] [facility] [address] [place], [place] [id number] 01/15/2025 9:45 AM EDT Office Visit [facility] CARDIOLOGY [address] [facility] [address] [place] [address] Joy Skinner, CRIMINAL INVESTIGATOR [address] [place] [address] documented as of this encounter Procedures Procedure Name Priority Date/Time Associated Diagnosis Comments XR KNEE 4+ VW RIGHT Routine 11/10/2023 8 :50 AM EST Acute pain of right knee documented in this encounter Results * MRI Knee Right Without Contrast (11/11/2023 9:35 AM EST) Anatomical Region Laterality Modality Lower Extremities, Knee Magnetic Resonance 11/11/2023 9:51 AM EST Impressions 11/11/2023 10:23 AM EST Impression: Linear horizontal signal along the body of the lateral meniscus which reflect a nondisplaced tear. Mild to moderate degenerative changes predominantly in the patellofemoral compartment. Moderate knee joint effusion. Minimal myotendinous strain of biceps femoris. Electronically Signed: Andriy Larose MD 11/11/2023 10:23 AM EST Workstation ID: [id number] Narrative 11/11/2023 10:23 AM EST MRI KNEE RIGHT ??WO CONTRAST Date of Exam: 11/11/2023 9:03 AM EST Indication: Internal derangement, right knee. Comparison: Knee radiographs 11/10/2023 Technique: ??Routine multiplanar/multisequence images of the right knee were obtained without contrast administration. Findings: Medial compartment: No evidence of meniscal tear. Mild to moderate chondral thinning of the medial femoral condyle. No evidence of subchondral edema. Lateral compartment: Horizontal increased signal along the body of the lateral meniscus. Articular cartilage is intact. No evidence of subchondral edema. Patellofemoral compartment: Patellofemoral compartment alignment is grossly intact. Full-thickness chondral loss along the lateral patellar facet and lateral trochlea. There is minimal associated subchondral edema. Medial plica is not present. Extensor mechanism: Patellar tendon is intact. Quadriceps tendon is intact. Ligaments: Anterior cruciate ligament is intact. Posterior cruciate ligament is intact. Medial collateral ligament is intact. ??Lateral collateral ligament complex is intact including the fibular collateral ligament, the biceps femoris tendon and the iliotibial band. Muscles and tendons: The popliteus muscle and tendon appear intact. No evidence of pes anserine bursitis. Minimal myotendinous strain of biceps femoris. The remaining visualized muscles and tendons appear intact. Joint: Moderate knee joint effusion. No Miner's cyst is seen. Bones: No fracture or marrow edema is seen. No suspicious marrow replacing lesions seen. Soft tissues: Neurovascular structures appear intact. No substantial joint line edema. No soft tissue masses or fluid collections seen. Procedure Note Andriy Larose MD - 11/11/2023 MRI KNEE RIGHT WO CONTRAST Date of Exam: 11/11/2023 9:03 AM EST Indication: Internal derangement, right knee. Comparison: Knee radiographs 11/10/2023 Technique: Routine multiplanar/multisequence images of the right kneewere obtained without contrast administration. Findings: Medial compartment: No evidence of meniscal tear. Mild to moderatechondral thinning of the medial femoral condyle. No evidence ofsubchondral edema. Lateral compartment: Horizontal increased signal along the body of thelateral meniscus. Articular cartilage is intact. No evidence ofsubchondral edema. Patellofemoral compartment: Patellofemoral compartment alignment isgrossly intact. Full-thickness chondral loss along the lateral patellarfacet and lateral trochlea. There is minimal associated subchondral edema.Medial plica is not present. Extensor mechanism: Patellar tendon is intact. Quadriceps tendon isintact. Ligaments: Anterior cruciate ligament is intact. Posterior cruciateligament is intact. Medial collateral ligament is intact. Lateralcollateral ligament complex is intact including the fibular collateralligament, the biceps femoris tendon and the iliotibial band. Muscles and tendons: The popliteus muscle and tendon appear intact. Noevidence of pes anserine bursitis. Minimal myotendinous strain of bicepsfemoris. The remaining visualized muscles and tendons appear intact. Joint: Moderate knee joint effusion. No Miner's cyst is seen. Bones: No fracture or marrow edema is seen. No suspicious marrow replacinglesions seen. Soft tissues: Neurovascular structures appear intact. No substantial jointline edema. No soft tissue masses or fluid collections seen. IMPRESSION: Impression: Linear horizontal signal along the body of the lateral meniscus whichreflect a nondisplaced tear. Mild to moderate degenerative changes predominantly in the patellofemoralcompartment. Moderate knee joint effusion. Minimal myotendinous strain of biceps femoris. Electronically Signed: Andriy Larose MD 11/11/2023 10:23 AM EST Workstation ID: [id number] Go Zazueta MD [facility] ORDER[facility] Final Resul t * XR Knee 4+ View Right (11/10/2023 8:50 AM EST) Anatomical Region Laterality Modality Lower Extremities, Knee Right Xray Narrative 11/10/2023 9:00 AM EST Right Knee Radiographs Indication: right knee pain Views: Standing AP's and skiers of both knees, with lateral and sunrise views of the right knee Comparison: no prior studies available Findings: ?? No acute bony abnormalities, patellofemoral degeneration and [id number] contact lateral facet, with no unusual bony features. Go Zazueta MD [facility] ORDERAB LES Final Result documented in this encounter Visit Diagnoses Diagnosis Acute pain of right knee- Primary Cyst of left knee joint Acute pain of right knee documented in this encounter Care Teams Roller Skate Repairer Relationship Specialty Start Date End Date Franko Juarez MD PCP - General Family Medicine 12/21/22 documented as of this encounter
--- OUTSIDE RECORDS SUMMARY | 2024-10-02 13:09 | XMS_ITS | Encounter Summary ---
Author Organization [facility] Address [address] [place] [address] Care Team Providers Care Core Extruder Name Role Phone Franko Juarez MD Primary Care Provider +1- [phone] Reason for Visit * Reason Comments Palpitations Hypertension Takotsubo CM Rapid Heart Rate Encounter Details Date Type Department Care Team (Late st Contact Info) Description 03/15/2023 10:15 AM EDT Office Visit [facility] CARDIOLOGY [address] [place] [address] Abebe Diego MD [address] [place] [address] Precordial chest pain (Primary Dx); History of Takotsubo cardiomyopathy; Rapid palpitations; Essential hypertension Social History Tobacco Use Types Packs/Day Years [...] Sign Reading Time Taken Comments Blood Pressure 120/68 03/15/2023 10:10 AM EDT Pulse 65 03/15/2023 10:10 AM EDT Temperature - - Respiratory Rate - - Oxygen Saturation 98% 03/15/2023 10:10 AM EDT Inhaled Oxygen Concentration - - Weight 78.5 kg (173 lb) 03/15/2023 10:10 AM EDT Height 167.6 cm (5' 5.98 ) 03/15/2023 10:10 AM E DT Body Mass Index 27.94 03/15/2023 10:10 AM EDT documented in this encounter Progress Notes * Abebe Diego MD - 03/15/2023 10:15 AM EDT [facility] Cardiology Subjective: Encounter Date: 03/15/2023 Patient ID: Rachael Fleming is a 77 y.o. female. Chief Complaint: Palpitations, Hypertension, Takotsubo CM, and Rapid Heart Rate PROBLEM LIST: 1. Takotsubo cardiomyopathy, 3 known episodes (1996, 2007, 2015): a. Initial diagnosis??(1996)??with subsequent recovery. b. [facility],??08/1997: Normal EF. Normal coronary arteries. c. Recurrence with diagnosis of Takotsubo syndrome??(2007)??at the [facility]. d. [facility],??06/2008: EF 20%. No significant coronary artery disease.?? e. Echo,??01/2009: EF??55%. f. [facility],??10/26/2016:??EF 20%.??Takotsubo/stress-induced cardiomyopathy with severe LV systolic dysfunction.??Near normal coronary arteries. g. Echo,??10/28/2016: EF 41%.??Findings consistent with stress-induced (Takotsubo) cardiomyopathy.??Mild MR, mild TR.?? h. Echo, 12/21/2016: EF normalized at 55%. Normal valves. i. Echo, 06/04/2017: EF 55%. Normal valves. j. Echo, 09/29/2017: EF 65%. Normal valves. k. 2018, evaluated at [facility] l. Echo, 09/10/2022: EF 60%. Mild MRAmairani torres MPS, 09/28/2022: EF >70%. No evidence of ischemia. 2. Recurrent palpitations/tachyarrhythmias: a. Normal Holter, 10/2011. b. Event recorder shows atrial tachycardia at 145 bpm, which is symptomatic. c. Recurrent episode, 06/2017. d. Bilateral carotid duplex,??08/30/2017: GEORGE 0-49%, LICA 0-49%. e. 14d Holter,??10/22/2017: Essentially normal Holter readings.?No significant arrhythmia.?? f. 30d event monitor, 12/22/2017: No Afib. No pauses. 1% PVCs. HR range 49-120 bpm, average 68 bpm. g. 11/2020 Monitor with brief PAT/MAT h. Loop recorder implant 01/2021 3. Hypertension. 4. DONNA: a. Non-compliant with CPAP machine. 5. Peptic ulcer disease. 6. Hiatal hernia. 7. Irritable bowel syndrome 8. Nephrolithiasis. 9. Surgeries. a. Breast lumpectomies extracted and benign. b. Hysterectomy. c. Bilateral cataract extraction with lens implantation. d. Right breast resection. History of Present Illness Rachael Fleming returns today for a follow up with a history of precordial chest pain, history of Takotsubo cardiomyopathy, rapid palpitations, and cardiac risk factors. Since last visit, patienthad an episode 3 days ago in which she was felt a syncopal episode overcoming her with associated weakness and fatigue. She decided to go sleep when she felt these symptoms arise and she states that s he felt fatigued the next day. Patient brought a blood pressure log in visit which showed most measurements 110-140 mmHg systolic. She has discontinued pravastatin due to myalgia. Patient denies chest pain, shortness of breath, orthopnea, palpitations, edema, dizziness, and syncope. Allergies Allergen Reactions ??? Penicillins Hives ??? Phenergan [Promethazine Hcl] Hives ??? Statins Myalgia ??? Metronidazole Rash ??? Sudafed [Pseudoephedrine Hcl] Rash ??? Sulfa Antibiotics Rash Current Outpatient Medications: ??? albuterol sulfate HFA 108 (90 Base) MCG/ACT inhaler, Inhale 2 puffs Every 4 (Four) Hours As Needed for Wheezing., Disp: , Rfl: ??? ALPRAZolam (XANAX) 0.25 MG tablet, Take 1 tablet by mouth 2 (Two) Times a Day As Needed for Anxiety., Disp: 10 tablet, Rfl: 0 ??? aspirin 81 MG EC tablet, Take 1 tablet by mouth Daily., Disp: , Rfl: ??? carvedilol (COREG) 3.125 MG tablet, Take 1 tablet by mouth 2 (Two) Times a Day With Meals., Disp: 180 tablet, Rfl: 3 ??? cyclobenzaprine (FLEXERIL) 5 MG tablet, Take 1 tablet by mouth 3 (Three) Times a Day As Needed for Muscle Spasms., Disp: 15 tablet, Rfl: 0 ??? Diclofenac Sodium (VOLTAREN) 1 % gel gel, , Disp: , Rfl: ??? fluticasone (FLONASE) 50 MCG/ACT nasal spray, , Disp: , Rfl: ??? hydroCHLOROthiazide (MICROZIDE) 12.5 MG capsule, Take 1 capsule by mouth Every Morning., Disp: 90 capsule, Rfl: 3 ??? isosorbide mononitrate (IMDUR) 30 MG 24 hr tablet, Take 1 tablet by mouth 2 (Two) Times a Day.,Disp: 180 tablet, Rfl: 3 ??? loratadine (CLARITIN) 10 MG tablet, Take 1 tablet by mouth Daily., Disp: 90 tablet, Rfl: 0 ??? losartan (COZAAR) 50 MG tablet, Take 0.5 tablets by mouth 2 (Two) Times a Day., Disp: 90 tablet, Rfl: 3 ??? omeprazole (priLOSEC) 40 MG capsule, Take 1 capsule by mouth Daily., Disp: 90 capsule, Rfl: 0 ??? zolpidem (AMBIEN) 5 MG tablet, , Disp: , Rfl: ??? nitroglycerin (Nitrostat) 0.4 MG SL tablet, Place 1 tablet under the tongue Every 5 (Five) Minutes As Needed for Chest Pain. Take no more than 3 doses in 15 minutes., Disp: 25 tablet, Rfl: 5 Current Facility-Administered Medications: ??? albuterol (PROVENTIL HFA;VENTOLIN HFA) inhaler 2 puff, 2 puff, Inhalation, Q4H DEIONN, Kushal Silverman APRN The following portions of the patient's history were reviewed and updated as appropriate: allergies, current medications, past family history, past medical history, past social history, past surgicalhistory and problem list. Review of Systems Constitutional: Negative. Cardiovascular: Negative for chest pain, dyspnea on exertion, leg swelling, palpitations and syncope. Respiratory: Negative. Negative for shortness of breath. Hematologic/Lymphatic: Negative for bleeding problem. Does not bruise/bleed easily. Skin: Negative for rash. Musculoskeletal: Negative for muscle weakness and myalgias. Gastrointestinal: Negative for heartburn, nausea and vomiting. Neurological: Negative for dizziness, light-headedness, loss of balance and numbness. Objective: Vitals: 03/15/23 1010 BP: 120/68 BP Location: Left arm Patient Position: Sitting Pulse: 65 SpO2: 98% Weight: 78.5 kg (173 lb) Height: 167.6 cm (65.98 ) Constitutional: Appearance: Well-developed. Neck: Thyroid: No thyromegaly. Vascular: No carotid bruit or JVD. Pulmonary: Breath sounds: Normal breath sounds. Cardiovascular: Regular rhythm. No gallop. No S3 and S4 gallop. Edema: Peripheral edema absent. Abdominal: General: Bowel sounds are normal. Palpations: Abdomen is soft. There is no abdominal mass. Tenderness: There is no abdominal tenderness. Skin: General: Skin is warm and dry. Findings: No rash. Neurological: Mental Status: Alert and oriented to person, place, and time. Lab Review: Lab Results Component Value Date GLUCOSE 105 (H) 08/19/2022 BUN 12 08/19/2022 CREATININE 0.77 08/19/2022 EGFR 81.1 08/19/2022 BCR 15.6 08/19/2022 NA 139 08/19/2022 K 4.2 08/19/2022 CO2 27.0 08/19/2022 CALCIUM 10.2 08/19/2022 ALBUMIN 4.60 08/19/2022 ALKPHOS 88 08/19/2022 AST 17 08/19/2022 ALT 16 08/19/2022 Lab Results Component Value Date CHLPL 230 (H) 07/22/2022 TRIG 177 (H) 07/22/2022 HDL 54 07/22/2022 LDL 144 (H) 07/22/2022 Lab Results Component Value Date WBC 8.06 08/19/2022 RBC 4.57 08/19/2022 HGB 13.6 08/19/2022 HCT 39.6 08/19/2022 MCV 86.7 08/19/2022 PLT 369 08/19/2022 Lab Results Component Value Date HGBA1C 5.9 (H) 07/22/2022 @ACPBEGIN ACP discussion was held with the patient during this visit. Patient does not have an advance directive, declines further assistance. @ACPEND Procedures Assessment: Diagnoses and all orders for this visit: 1. Precordial chest pain (Primary) 2. History of Takotsubo cardiomyopathy 3. Rapid palpitations 4. Essential hypertension Impression: 1. Precordial chest pain, no flow-limiting coronary artery disease. Stable and asymptomatic. Continue on aspirin for antiplatelet therapy and Imdur for chest pain. 2. History of Takotsubo cardiomyopathy. Stable and asymptomatic. 3. Intermittent episode of dizziness persistent, last 1 yesterday, normal loop recorder during episodes. 4. Essential hypertension. Well controlled. Occasional episodes of near syncope due to hypotension.Patient states that she has been managing them well. Continue on hydrochlorothiazide and losartan. Plan: 1. Stable cardiac status. 2. Given her nonflow-limiting coronary disease may stay off statin as she seems to be intolerant. 3. Continue current medications. 4. Revisit in 12 MO, or sooner as needed. Scribed for Abebe Diego MD by Lesley Lowry. 03/15/2023 10:34 EDT Abebe Diego MD Please note that portions of this note may have been completed with a voice recognition program. Efforts were made to edit the dictations, but occasionally words are mistranscribed. documented in this encounter Plan of Treatment Upcoming Encounters Date Type Department Care Team (Late st Contact Info) Description 12/22/2024 9:50 AM EST Office Visit [facility] [address] [place] [address] Go Zazueta MD [address] [facility] [address] [place] [address] 01/15/2025 9:45 AM EDT Office Visit [facility] C[facility]OLOG[facility] [address] [place] [address] Joy Skinner APRN [address] [place] [id number] Scheduled Orders Name Type Priority Associated Diagnoses Orde r Schedule SCANNED - CARDIOLOGY Cardiac Services Ordered: 03/15/2023 documented as of this encounter Visit Diagnoses Diagnosis Precordial chest pain- Primary Precordial pain History of Takotsubo cardiomyopathy Takotsubo syndrome Rapid palpitations Palpitations Essential hypertension Unspecified essential hypertension documented in this encounter Care Teams Core Extruder Relationship Specialty Start Date End Date Franko Juarez MD PCP - General Family Medicine 12/21/22 documented as of this encounter
--- OUTSIDE RECORDS SUMMARY | 2024-10-02 13:09 | XMS_ITS | Encounter Summary ---
Author Organization [facility] Address [address] [place] [address] Care Team Providers Care Tenant Relations Coordinator Name Role Phone Franko Juarez MD Primary Care Provider [phone]- [phone] Reason for Referral * MRI/CAT/PET Scan (Routine) - Closed Specialty Diagnoses / Procedures Referred By Contac t Referred To Contact Radiology Diagnoses Injury of left knee, initial encounter Procedures MRI Knee Left Without Contrast Zaire Selby MD [address] [place] [address] Phone: tel: fax: [address] [address] Phone: tel: Referral ID Status Reason Start Date Expiration Date Visits Re quested Visits Authorized [id number] Closed 04/19/2023 04/18/2024 1 1 Reason for Visit * MRI/CAT/PET Scan (Routine) - Closed Specialty Diagnoses / Procedures Referred By Contac t Referred To Contact Radiology Diagnoses Injury of left knee, initial encounter Procedures MRI Knee Left Without Contrast Zaire Selby MD [address] [place] [address] Phone: tel: fax: [address] [address] Phone: tel: Referral ID Status Reason Start Date Expiration Date Visits Re quested Visits Authorized [id number] Closed 04/19/2023 04/18/2024 1 1 Encounter Details Date Type Department Care Team (Late st Contact Info) Description 04/20/2023 8:27 AM EDT - 04/20/2023 11:59 PM EDT Hospital Encounter [facility] MRI AT [address] [place] [address] Zaire Selby MD [address] [place] [id number] Injury of left knee, initial encounter Discharge Disposition: Home or Self Care Social [...] on file documented as of this encounter Medications at Time of Discharge albuterol sulfate HFA 108 (90 Base) MCG/ACT inhaler Inhale 2 puffs Every 4 (Four) Hours As Needed for Wheezing. ALPRAZolam (XANAX) 0.25 MG tabletIndications:Si tuational anxiety Take 1 tablet by mouth 2 (Two) Times a Day As Needed for Anxiety. 10 tablet 07/22/2022 aspirin 81 MG EC tablet Take 1 tablet by mouth Daily. fluticasone (FLONASE) 50 MCG/ACT nasal spray 01/23/2021 loratadine (CLARITIN) 10 MG tablet Take 1 tablet by mouth Daily. 90 tablet 07/15/2022 nitroglycerin (Nitrostat) 0.[address] 1 tablet under the tongue Every 5 (Five) Minutes As Needed for Chest Pain. Take no more than 3 doses in 15 minutes. 25 tablet 5 01/16/2020 omeprazole (priLOSEC) 40 MG capsule Take 1 capsule by mouth Daily. 90 capsule 12/02/2022 zolpidem (AMBIEN) 5 MG tablet 04/04/2021 carvedilol (COREG) 3.125 MG tabletIndications:Ta kotsubo cardiomyopathy Take 1 tablet by mouth 2 (Two) Times a Day With Meals. 180 tablet 3 03/15/2023 4 cyclobenzaprine (FLEXERIL) 5 MG tablet Take 1 tablet by mouth 3 (Three) Times a Day As Needed for Muscle Spasms. 15 tablet 08/19/2022 4 Diclofenac Sodium (VOLTAREN) 1 % gel gel 01/04/2023 4 hydroCHLOROthiazide (MICROZIDE) 12.5 MG capsule Take 1 capsule by mouth Every Morning. 90 capsule 3 12/21/2022 4 HYDROcodone-acetamin ophen (NORCO) 5-325 MG per tablet 04/05/2023 3 isosorbide mononitrate (IMDUR) 30 MG 24 hr tablet Take 1 tablet by mouth 2 (Two) Times a Day. 180 tablet 3 12/21/2022 4 losartan (COZAAR) 50 MG tablet Take 0.5 tablets by mouth 2 (Two) Times a Day. 90 tablet 3 12/21/2022 4 meloxicam (MOBIC) 7.5 MG tablet 04/05/2023 3 documented as of this encounter Plan of Treatment Upcoming Encounters Date Type Department Care Team (Late st Contact Info) Description 12/22/2024 9:50 AM EST Office Visit [facility] ORTHOPEDICS & SPORTS MEDICINE [address] [facility] [address] [place] [address] Go Zazueta MD [address] [place] [phone] 01/15/2025 9:45 AM EDT Office Visit [facility] [address] [facility] [address] [place] [phone] Joy Skinner APRN [address] [place] [address] documented as of this encounter Procedures Procedure Name Priority Date/Time Associated Diagnosis Comments MRI KNEE LEFT WO CONTRAST Routine 04/20/2023 9:34 AM EDT Injury of left knee, initial encounter documented in this encounter Results * MRI Knee Left Without Contrast (04/20/2023 9:34 AM EDT) Anatomical Region Laterality Modality Lower Extremities, Knee Magnetic Resonance 04/20/2023 12:1 7 PM EDT Impressions 04/20/2023 12:27 PM EDT Impression: There is a large multiloculated cystic mass and/or collection in the anterior lateral knee which appears intra-articular. It measures up to 6 cm. This may be an atypical ganglion cyst however post contrast-enhanced imaging is recommended for better evaluation. There is severe patellofemoral compartment arthritis with patella jesus and mild lateral subluxation the patella. There is mild medial compartment arthritis. Electronically Signed: Maliha Jordan 04/20/2023 12:27 PM EDT Workstation ID: [id number] Narrative 04/20/2023 12:27 PM EDT MRI KNEE LEFT ??WO CONTRAST Date of Exam: 04/20/2023 9:20 AM EDT Indication: rule out stress fracture. Injury in December. Pain. Comparison: Knee radiograph 01/13/2023 [facility] Technique: ??Routine multiplanar/multisequence images of the left knee were obtained without contrast administration. Findings: Osseous Structures and Intra-Articular Bone marrow signal intensity is normal. No osseous contusions or fractures. No significant joint effusion. There is a multiloculated low T1 high T2 signal intensity collection along the anterior lateral intra-articular aspect of the knee. This measures 4.3 x 2 x 6 cm. It is seen deep to the iliotibial band. Its exact origin is uncertain. There is some extension posteriorly as well. No calcifications are seen in this location on radiograph. Given the atypical location and appearance for a routine ganglion cyst or parameniscal cyst post contrast-enhanced imaging is recommended.. There is severe patellofemoral compartment and mild medial compartment joint space narrowing. Ligaments The anterior cruciate ligament and posterior cruciate ligaments are intact. Medial collateral ligament and lateral collateral ligament complex are intact. Menisci No meniscal tears. Extensor compartment Patella has lateral subluxation and patella jesus.. Extensor mechanism is intact. Cartilage Full-thickness cartilage loss along the patellar apex and lateral facet, central trochlea and lateral femoral trochlea. Small osteophytes. Cartilage thinning of the medial patellar facet. Diffuse cartilage thinning in the medial compartment with full-thickness loss along the posterior medial femoral condyle measuring up to about 11 mm anteroposterior. Soft tissues No soft tissue masses. ??No Miner cyst or evidence of recent Miner cyst rupture. Miscellaneous Iliotibial band is normal. Popliteus muscle and tendon are normal in appearance. Procedure Note Maliha Jordan MD - 04/20/2023 MRI KNEE LEFT WO CONTRAST Date of Exam: 04/20/2023 9:20 AM EDT Indication: rule out stress fracture. Injury in December. Pain. Comparison: Knee radiograph 01/13/2023 [facility] Technique: Routine multiplanar/multisequence images of the left knee wereobtained without contrast administration. Findings: Osseous Structures and Intra-Articular Bone marrow signal intensity is normal. No osseous contusions orfractures. No significant joint effusion. There is a multiloculated low T1high T2 signal intensity collection along the anterior lateralintra-articular aspect of the knee. This measures 4.3 x 2 x 6 cm. It is seen deep to the iliotibial band. Its exact originis uncertain. There is some extension posteriorly as well. Nocalcifications are seen in this location on radiograph. Given the atypicallocation and appearance for a routine ganglion cyst or parameniscal cyst post contrast-enhanced imaging isrecommended.. There is severe patellofemoral compartment and mild medialcompartment joint space narrowing. Ligaments The anterior cruciate ligament and posterior cruciate ligaments areintact. Medial collateral ligament and lateral collateral ligament complexare intact. Menisci No meniscal tears. Extensor compartment Patella has lateral subluxation and patella jesus.. Extensor mechanism isintact. Cartilage Full-thickness cartilage loss along the patellar apex and lateral facet,central trochlea and lateral femoral trochlea. Small osteophytes.Cartilage thinning of the medial patellar facet. Diffuse cartilagethinning in the medial compartment with full-thickness loss along the posterior medial femoral condyle measuringup to about 11 mm anteroposterior. Soft tissues No soft tissue masses. No Miner cyst or evidence of recent Miner cystrupture. Miscellaneous Iliotibial band is normal. Popliteus muscle and tendon are normal inappearance. IMPRESSION: Impression: There is a large multiloculated cystic mass and/or collection in theanterior lateral knee which appears intra-articular. It measures up to 6cm. This may be an atypical ganglion cyst however post contrast-enhancedimaging is recommended for better evaluation. There is severe patellofemoral compartment arthritis with patella jesus andmild lateral subluxation the patella. There is mild medial compartment arthritis. Electronically Signed: Maliha Jordan 04/20/2023 12:27 PM EDT Workstation ID: [id number] Zaire Selby MD IMG MRI ORDERABLES Final Res ult documented in this encounter Visit Diagnoses Diagnosis Injury of left knee, initial encounter documented in this encounter Care Teams Tenant Relations Coordinator Relationship Specialty Start Date End Date Franko Juarez MD PCP - General Family Medicine 12/21/22 documented as of this encounter
--- OUTSIDE RECORDS SUMMARY | 2024-10-02 13:09 | XMS_ITS | Encounter Summary ---
Author Organization [facility] Address [address] [place] [address] Care Team Providers Care Oil Sprayer Name Role Phone Franko Juarez MD Primary Care Provider +1- [phone] Reason for Referral * MRI/CAT/PET Scan (Routine) - Closed Specialty Diagnoses / Procedures Referred By Contac t Referred To Contact Radiology Diagnoses Acute pain of right knee Procedures MRI Knee Right Without Contrast Go Zazueta MD [address] [place] [address] Phone: tel: fax: [place] [address] Phone: tel: Referral ID Status Reason Start Date Expiration Date Visits Re quested Visits Authorized [id number] Closed 11/10/2023 11/09/2024 1 1 Reason for Visit * MRI/CAT/PET Scan (Routine) - Closed Specialty Diagnoses / Procedures Referred By Contac t Referred To Contact Radiology Diagnoses Acute pain of right knee Procedures MRI Knee Right Without Contrast Go Zazueta MD [address] [place] [address] Phone: tel: fax: [address] [address] Phone: tel: Referral ID Status Reason Start Date Expiration Date Visits Re quested Visits Authorized [id number] Closed 11/10/2023 11/09/2024 1 1 Encounter Details Date Type Department Care Team (Late st Contact Info) Description 11/11/2023 8:23 AM EST - 11/11/2023 11:59 PM EST Hospital Encounter PSYCHIATRIC MRI AT [facility] [address] [place] [address] Go Zazueta MD [address] [place] [address] Acute pain of right knee Discharge Disposition: Home or Self Care Social [...] Every Morning. 90 capsule 3 12/21/2022 4 isosorbide mononitrate (IMDUR) 30 MG 24 hr tablet Take 1 tablet by mouth 2 (Two) Times a Day. 180 tablet 3 12/21/2022 4 losartan (COZAAR) 50 MG tablet Take 0.5 tablets by mouth 2 (Two) Times a Day. 90 tablet 3 12/21/2022 4 documented as of this encounter Plan of Treatment Upcoming Encounters Date Type Department Care Team (Late st Contact Info) Description 12/22/2024 9:50 AM EST Office Visit [facility]OPEDICS & SP[facility]TS MEDICINE [address] [facility] [address] [place] [address] Go Zazueta MD [address] [facility] [address] [place], [place] [id number] 01/15/2025 9:45 AM EDT Office Visit [facility] CARD[facility]OLOG[facility] [address] [place] [address] KarelJoy lackey, COLLAR FOLDER OPERATOR [address] [place] [address] documented as of this encounter Procedures Procedure Name Priority Date/Time Associated Diagnosis Comments MRI KNEE RIGHT WO CONTRAST Routine 11/11/2023 9:35 AM EST Acute pain of right knee [...] MD 11/11/2023 10:23 AM EST Workstation ID: [id number] Narrative 11/11/2023 10:23 AM EST MRI KNEE [...] MD 11/11/2023 10:23 AM EST Workstation ID: [id number] Go Zazueta MD IMG MRI ORDERABLES Final Resul t documented in this encounter Visit Diagnoses Diagnosis Acute pain of right knee documented in this encounter Care Teams Oil Sprayer Relationship Specialty Start Date End Date Franko Juarez MD PCP - General Family Medicine 12/21/22 documented as of this encounter
--- OUTSIDE RECORDS SUMMARY | 2024-10-02 13:09 | XMS_ITS | Encounter Summary ---
Author Organization [facility] Address [address] [place] [address] Care Team Providers Care Drop Hammer Mechanic Name Role Phone Franko Juarez MD Primary Care Provider +1- [phone] Reason for Visit * Reason Comments Follow-up 2.5 week f/u - Acute pain of left knee (MRI 04/20/2023) Encounter Details Date Type Department Care Team (Late st Contact Info) Description 04/26/2023 1:40 PM EDT Office Visit [facility] MED[facility]INE [address] [place] [address] Zaire Selby MD [address] [place] [address] Cyst of left knee joint (Primary Dx); Injury of left knee, initial encounter; Acute pain of left knee Social History Tobacco Use Types Packs/Day Years [...] Sign Reading Time Taken Comments Blood Pressure 138/70 04/26/2023 1:27 PM EDT Pulse - - Temperature - - Respiratory Rate - - Oxygen Saturation - - Inhaled Oxygen Concentration - - Weight 76.2 kg (168 lb) 04/26/2023 1:27 PM EDT Height 165.1 cm (5' 5 ) 04/26/2023 1:27 PM EDT Body Mass Index 27.96 04/26/2023 1:27 PM EDT documented in this encounter Progress Notes * Zaire Selby MD - 04/26/2023 1:40 PM EDT Images from the original note were not included. [facility] Note Subjective CC: Follow-up (2.5 week f/u - Acute pain of left knee (MRI 04/20/2023) ) HPI Rachael Fleming is a 77 y.o. female. Left knee pain is less. She injured herself January 01. She had an MRI in April 20. She is feeling better. ROS: Constiutional:Pt denies fever, chills, nausea, or vomiting. MSK:as above Objective Past Medical History Past Medical History: Diagnosis Date Acute hemorrhagic cystitis hospitalized at [facility], 06/21/2015 Asthma Atrial tachycardia Chest [...] disease) 11/05/2016 Takotsubo cardiomyopathy Initially diagnosed at [place] 2007. EF 20 at that time. 2008 EF 55% Social History Socioeconomic History Marital status: Number of children: 2 Tobacco Use Smoking status: Never Smokeless tobacco: Never Vaping Use Vaping Use: Never used Substance and Sexual Activity Alcohol use: Not Currently Drug use: Never Sexual activity: Defer Physical Exam BP 138/70 Ht 165.1 cm (65 ) Wt 76.2 kg (168 lb) BMI 27.96 kg/m?? Body mass index is 27.96 kg/m??. Patient is well nourished and well developed. Ortho Exam Left knee with tenderness and swelling laterally. In the area of the IT band at the knee. Imaging/Labs/EMG Reviewed: Imaging Results (Last 24 Hours) No results found for the last 24 hours. I viewed and personally interpreted the MRI from April 23 of the large atypical multiloculated intraand extra-articular ganglion cyst. No signs of malignancy Assessment Assessment: 1. Cyst of left knee joint 2. Injury of left knee, initial encounter 3. Acute pain of left knee Plan: Recommend over the counter anti-inflammatories for pain and/or swelling The plan is to observe this. She will follow-up in 6 weeks. We discussed surgery. If she is not better in 6 weeks she would consider surgical excision. This would probably be both arthroscopic and open. Zaire Selby MD 04/26/23 13:47 EDT Dictated Utilizing [employer] Dictation. documented in this encounter Plan of Treatment Upcoming Encounters Date Type Department Care Team (Late st Contact Info) Description 12/22/2024 9:50 AM EST Office Visit [facility] [address] [facility] [address] [place] [address] Go Zazueta MD [address] [facility] [address] [place] [address] 01/15/2025 9:45 AM EDT Office Visit [facility] CARDIOLOGY [address] [facility] [address] [place] [phone] Joy Skinner APRN [address] [facility] [address] [place] [address] documented as of this encounter Visit Diagnoses Diagnosis Cyst of left knee joint- Primary Injury of left knee, initial encounter Acute pain of left knee documented in this encounter Care Teams Drop Hammer Mechanic Relationship Specialty Start Date End Date Franko Juarez MD PCP - General Family Medicine 12/21/22 documented as of this encounter
--- OUTSIDE RECORDS SUMMARY | 2024-10-02 13:09 | XMS_ITS | Encounter Summary ---
Author Organization [facility] Address [address] [place] [address] Care Team Providers Care Household Appliances Salesperson Name Role Phone Franko Juarez MD Primary Care Provider +1- [phone] Reason for Referral * MRI/CAT/PET Scan (Routine) - Closed Specialty Diagnoses / Procedures Referred By Contac t Referred To Contact Radiology Diagnoses Cyst of left knee joint Procedures MRI Knee Left With & Without Contrast Go Zazueta MD [address] [place] [address] Phone: tel: fax: [facility] MRI [address] [place] [address] Phone: tel: fax: Referral ID Status Reason Start Date Expiration Date Visits Re quested Visits Authorized [id number] Closed 08/30/2023 08/29/2024 1 1 Reason for Visit * MRI/CAT/PET Scan (Routine) - Closed Specialty Diagnoses / Procedures [facility] Referred To Contact Radiology Diagnoses Cyst of left knee joint Procedures MRI Knee Left With & Without Contrast Go Zazueta MD [address] [place] [address] Phone: tel: fax: [facility] MRI [address] [place] [address] Phone: tel: fax: Referral ID Status Reason Start Date Expiration Date Visits Re quested Visits Authorized [id number] Closed 08/30/2023 08/29/2024 1 1 Encounter Details Date Type Department Care Team (Late st Contact Info) Description 10/19/2023 7:23 AM EST - 10/19/2023 11:59 PM [facility] Encounter [facility] MRI AT [address] [place] [address] Go Zazueta MD [address] [facility] [address] [place] [address] Cyst of left knee joint Discharge Disposition: Home or Self Care Social [...] Description 12/22/2024 9:50 AM EST Office Visit [facility]OPEDICS & SPORTS MEDICINE [address] [facility] [address] [place] [address] Go Zazueta MD [address] [facility] [address] [place] [address] 01/15/2025 9:45 AM EDT Office Visit [facility] CARDIOLOGY [address] [place] [phone] Joy Skinner APRN [address] [place] [address] documented as of this encounter Procedures Procedure Name Priority Date/Time Associated Diagnosis Comments MRI KNEE LEFT W WO CONTRAST Routine 10/19/2023 9:50 AM EST Cyst of left knee joint POCT CREATININE Routine 10/19/2023 8:12 AM EST documented in this encounter Results * MRI Knee Left With & Without Contrast (10/19/2023 9:50 AM EST) Anatomical Region Laterality Modality Lower Extremities, Knee Magnetic Resonance 10/19/2023 10:5 8 AM EST Impressions 10/19/2023 11:25 AM EST Impression: 1.Multiloculated intra-articular cyst likely due to meniscal tear has no aggressive features. It is unchanged in size since previous study measuring maximally 5.8 cm. The associated edema along its superior extent has resolved. 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 Mild medial lateral compartment arthritis. 3.Suspected horizontal tear body lateral meniscus with extension to free edge and periphery. Electronically Signed: Maliha Jordan MD 10/19/2023 11:25 AM EST Workstation ID: [id number] Narrative 10/19/2023 11:25 AM EST MRI KNEE LEFT W WO CONTRAST Date of Exam: 10/19/2023 7:45 AM EST Indication: Knee cyst on MRI April 2023, with persistent pain. Comparison: Left knee MRI 04/20/2023 Technique: ??Routine multiplanar/multisequence images of the left knee were obtained before and after the uneventful intravenous administration of 15 mL Multihance. Findings: Osseous Structures and Intra-Articular Bone marrow signal intensity is normal. No osseous contusions or fractures. No significant joint effusion. No intra-articular loose bodies. Large multiloculated intra-articular cyst laterally deep to the iliotibial band is similar to previous exam. [...] of cartilage in the medial lateral compartment. Full-thickness loss of the posterior medial femoral condyle with button osteophyte measuring 11 mm. Small focal full-thickness defect in the more central portion of the medial compartment. Full-thickness cartilage defect with button osteophyte lateral aspect lateral femoral condyle measures about 4 mm. Soft tissues No soft tissue masses. ??No Miner cyst or evidence of recent Miner cyst rupture. Miscellaneous Iliotibial band is normal. Popliteus muscle and tendon are normal in appearance. Procedure Note Maliha Jordan MD - 10/19/2023 MRI KNEE LEFT W WO CONTRAST Date of Exam: 10/19/2023 7:45 AM EST Indication: Knee cyst on MRI April 2023, with persistent pain. Comparison: Left knee MRI 04/20/2023 Technique: Routine multiplanar/multisequence images of the left knee wereobtained before and after the uneventful intravenous administration of 15mL Multihance. Findings: Osseous Structures and Intra-Articular Bone marrow signal intensity is normal. No osseous contusions orfractures. No significant joint effusion. No intra-articular loose bodies.Large multiloculated intra-articular cyst laterally deep to the iliotibialband is similar to previous exam. No pathologic enhancement. It measures approximately 5 x 2.3 x 5.8 cm.Allowing for differences in measurement technique its not significantlychanged. There is some prominent fat signal intensity superior to thisdeep to a mildly thinned vastus lateralis muscle. Edema seen along its superior posterior extent has resolved.Severe patellofemoral compartment joint space narrowing. Mild medial andlateral compartment joint space narrowing. Ligaments The anterior cruciate ligament and posterior cruciate ligaments areintact. Medial collateral ligament and lateral collateral ligament complexare intact. Menisci There is a questionable horizontal tear of the body of the lateralmeniscus with extension to the free edge. This could be the origin of thelarge multiloculated cyst in the lateral aspect. There are no medial meniscal tears. Extensor compartment Patella has lateral subluxation. There is patella jesus. Extensor mechanismis intact. Cartilage Full-thickness cartilage loss at the patella most pronounced at the apexand lateral facet. Full-thickness cartilage loss of the lateral andsuperior trochlea. Diffuse thinning of cartilage in the medial lateralcompartment. Full-thickness loss of the posterior medial femoral condyle with button osteophyte measuring 11 mm.Small focal full-thickness defect in the more central portion of themedial compartment. Full-thickness cartilage defect with button osteophytelateral aspect lateral femoral condyle measures about 4 mm. Soft tissues No soft tissue masses. No Miner cyst or evidence of recent Miner cystrupture. Miscellaneous Iliotibial band is normal. Popliteus muscle and tendon are normal inappearance. IMPRESSION: Impression: 1.Multiloculated intra-articular cyst likely due to meniscal tear has noaggressive features. It is unchanged in size since previous studymeasuring maximally 5.8 cm. The associated edema along its superior extenthas resolved. 2.Severe patellofemoral compartment arthritis with patella jesus andlateral subluxation of the patella. Mild medial lateral compartmentarthritis. 3.Suspected horizontal tear body lateral meniscus with extension to freeedge and periphery. Electronically Signed: Maliha Jordan MD 10/19/2023 11:25 AM EST Workstation ID: [id number] Go Zazueta MD [facility] ORDERABLES Final Resul t * POC Creatinine (10/19/2023 8:12 AM EST) Creatinine 0.70 0.60 - 1.30 mg/dL 10/19/2023 8:31 AM EST [facility] Comment:Serial Number: [id number] Blood 10/19/2023 8:12 AM EST 10/19/2023 8:31 AM EST Go Zazueta MD POINT OF CARE TEST ORDERABLES Final Result [facility]
[address] [place] [address], documented in this encounter Visit Diagnoses Diagnosis Cyst of left knee joint documented in this encounter Administered Medications Inactive Administered Medications - up to 3 most recent administrations Medication Order MAR Action Action Date Dose Rate Site gadobenate dimeglumine (MULTIHANCE) injection 15 mL 15 mL, Intravenous, Once in Imaging, On 10/19/23 at 0825, For 1 dose, Vesicant; admin as rapid bolus; flush with 5 mL NS after admin or 20 mL for renal or aortoiliofemoral vasculature Given 10/19/2023 8:23 AM EST 15 mL documented in this encounter Care Teams Household Appliances Salesperson Relationship Specialty Start Date End Date Franko Juarez MD PCP - General Family Medicine 12/21/22 documented as of this encounter
--- OUTSIDE RECORDS SUMMARY | 2024-10-02 13:09 | XMS_ITS | Encounter Summary ---
Author Organization [facility] Address [address] [place] [address] Care Team Providers Care Hand Ironer Name Role Phone Franko Juarez MD Primary Care Provider +1- [phone] Reason for Visit * Reason Comments Follow-up 6 wk f/u - Cyst of l eft knee joint Encounter Details Date Type Department Care Team (Late st Contact Info) Description 06/07/2023 10:20 AM EDT Office Visit [facility] ORTHOPEDICS & SPORTS MEDICINE [address] [place] [address] Zaire Selby MD [address] [place] [address] Cyst of left knee joint (Primary Dx); [...] Concentration - - Weight 75.8 kg (167 lb) 06/07/2023 9:57 AM EDT Height 165.1 cm (5' 5 ) 06/07/2023 9:57 AM EDT Body Mass Index 27.79 06/07/2023 9:57 AM EDT documented in this encounter Progress Notes * Zaire Selby MD - 06/07/2023 10:20 AM EDT Images from the original note were not included. [facility] Note Subjective CC: Follow-up (6 wk f/u - Cyst of left knee joint) HPI Rachael Fleming is a 77 y.o. female. She is doing much better. Physical therapy was making her knee feel worse. Therefore she stopped. Her MRI was April 20. She had an MCL sprain with posterior ganglion cyst ROS: Constiutional:Pt denies fever, chills, nausea, or vomiting. MSK:as above Objective Past Medical History Past Medical History: Diagnosis Date [facility] Asthma Atrial tachycardia Chest pain 06/04/2017 [...] disease) 11/05/2016 Takotsubo cardiomyopathy Initially diagnosed at [place] 2007. EF 20 at that time. 2008 EF 55% Social History Socioeconomic History Marital status: Number of children: 2 Tobacco Use Smoking status: Never Smokeless tobacco: Never Vaping Use Vaping Use: Never used Substance and Sexual Activity Alcohol use: Not Currently Drug use: Never Sexual activity: Defer Physical Exam Ht 165.1 cm (65 ) Wt 75.8 kg (167 lb) BMI 27.79 kg/m?? Body mass index is 27.79 kg/m??. Patient is well nourished and well developed. Ortho Exam Left knee is no longer tender. She has full motion. Normal gait. Imaging/Labs/EMG Reviewed: Imaging Results (Last 24 Hours) No results found for the last 24 hours. Assessment Assessment: 1. Cyst of left knee joint 2. Injury of left knee, initial encounter 3. Acute pain of left knee Plan: Recommend over the counter anti-inflammatories for pain and/or swelling She may advance as tolerated. She will follow-up as needed. She may want to come see me for cortisone injections. I told her that ganglion cysts were nothing to worry about. Zaire Selby MD 06/07/23 10:42 EDT Dictated Utilizing [employer] Dictation. documented in this encounter Plan of Treatment Upcoming Encounters Date Type Department Care Team (Late st Contact Info) Description 12/22/2024 9:50 AM EST Office Visit [facility]TS MEDICINE [address] [facility] [address] [place] [address] Go Zazueta MD [address] [facility] [address] [place] [address] 01/15/2025 9:45 AM EDT Office Visit [facility] CARDIOLOGY [address] [facility] [address] [place] [phone] Joy Skinner APRN [address] [facility] [address] [place], [place] [id number] documented as of this encounter Visit Diagnoses Diagnosis Cyst of left knee joint- Primary Injury of left knee, initial encounter Acute pain of left knee documented in this encounter Care Teams Hand Ironer Relationship Specialty Start Date End Date Franko Juarez MD PCP - General Family Medicine 12/21/22 documented as of this encounter
--- OUTSIDE RECORDS SUMMARY | 2024-10-02 13:09 | XMS_ITS | Encounter Summary ---
Author Organization [facility] Address [address] [place] [id number] Care Team Providers Care Dinker Name Role Phone Nurys Curtis APRN Primary Care Provider +1- [phone] Reason for Visit * Reason Onset Date Comments Med Refill 12/02/2022 Encounter Details Date Type Department Care Team (Late st Contact Info) Description 12/02/2022 Refill [facility] [address] [place] [phone] Nurys Curtis APRN [address] [place] [address] Social History Tobacco Use Types [...] Telephone Encounter - Delma Wilkins MA - 12/02/2022 10:11 AM EST Script sent in documented in this encounter Plan of Treatment Upcoming Encounters Date Type Department Care Team (Late st Contact Info) Description 12/22/2024 9:50 AM EST Office Visit [facility] ORTHOPED[facility] & [facility]ORTS MEDICINE [address] [facility] [address] [address] [place] [phone] Go Zazueta MD [address] [facility] [address] [place], [place] [phone] 01/15/2025 9:45 AM EDT Office Visit [facility] CARDI[facility] [address] [facility] [address] [place] [phone] Joy Skinner APRN [address] [facility] [address] [place], [place] [id number] documented as of this encounter Visit Diagnoses Not on filedocumented in this encounter Care Teams Dinker Relationship Specialty Start Date End Date Nurys Curtis, HEALTH THERAPIST [address] [place] [address] PCP - General Family Medicine 07/22/22 12/20/22 documented as of this encounter
--- OUTSIDE RECORDS SUMMARY | 2024-10-02 13:09 | XMS_ITS | Encounter Summary ---
Author Organization [facility] Address [address] [place] [address] Care Team Providers Care Vp Home Health Name Role Phone Nurys Curtis APRN Primary Care Provider [phone] Reason for Referral * Diagnostic Imaging (Routine) - Closed Specialty Diagnoses / Procedures Referred By Contac t Referred To Contact Diagnoses Precordial chest pain Takotsubo cardiomyopathy Rapid palpitations Procedures Adult Transthoracic Echo Complete W/ Cont if Necessary Per Protocol Joy Skinner APRN [address] [place] [address] Phone: tel: fax: [address] [address] Phone: tel: Referral ID Status Reason Start Date Expiration Date Visits Re quested Visits Authorized [id number] Closed 09/10/2022 10/10/2022 1 1 Reason for Visit * Diagnostic Imaging (Routine) - Closed Specialty Diagnoses / Procedures Referred By Contac t Referred To Contact Diagnoses Precordial chest pain Takotsubo cardiomyopathy Rapid palpitations Procedures Adult Transthoracic Echo Complete W/ Cont if Necessary Per Protocol Joy Skinner APRN [address] [place] [address] Phone: tel: fax: [address] [place] [address] Phone: tel: Referral ID Status Reason Start Date Expiration Date Visits Re quested Visits Authorized [id number] Closed 09/10/2022 10/10/2022 1 1 Encounter Details Date Type Department Care Team (Late st Contact Info) Description 09/10/2022 10:26 AM EST - 09/10/2022 11:59 PM EST Hospital Encounter [facility] AT [address] [address] Joy Skinner, PREPPER [address] [place] [address] Precordial chest pain; History of Takotsubo cardiomyopathy; Rapid palpitations Discharge Disposition: Home or Self Care Social [...] - Inhaled Oxygen Concentration - - Weight 78.3 kg (172 lb 9.9 oz) 09/10/2022 10:38 AM EST Height 167.6 cm (5' 5.98 ) 09/10/2022 10:[address] Body Mass Index 27.88 09/10/2022 10:38 AM EST documented in this encounter Medications at Time [...] in 15 minutes. 25 tablet 5 01/16/2020 zolpidem (AMBIEN) 5 MG tablet 04/04/2021 carvedilol (COREG) 3.125 MG tabletIndications:Ta kotsubo cardiomyopathy Take 1 tablet by mouth 2 (Two) Times a Day With Meals. 180 tablet 3 01/16/2020 3 Cholecalciferol (Vitamin D3) 50 MCG (1999 UT) tablet Take 1 tablet by mouth Daily. 3 cyclobenzaprine (FLEXERIL) 5 MG tablet Take 1 tablet by mouth 3 (Three) Times a Day As Needed for Muscle Spasms. 15 tablet 08/19/2022 4 hydroCHLOROthiazide (MICROZIDE) 12.5 MG capsule 01/02/2021 2 isosorbide mononitrate (IMDUR) 30 MG 24 hr tablet TAKE ONE TABLET BY MOUTH 2 TIMES A DAY 180 tablet 1 07/15/2022 3 losartan (COZAAR) 50 MG tablet Take 0.5 tablets by mouth 2 (Two) Times a Day. 90 tablet 08/28/2022 3 omeprazole (priLOSEC) 40 MG capsule take 1 capsule by mouth once daily 1 capsule 3 07/18/2019 3 pravastatin (Pravachol) 20 MG tabletIndications:Mi xed hyperlipidemia Take 1 tablet by mouth Every Night. Take with Co-enzyme Q 10-100 mg daily 90 tablet 3 07/29/2022 3 documented as of this encounter Plan of Treatment Upcoming Encounters Date Type Department Care Team (Late st Contact Info) Description 12/22/2024 9:50 AM EST Office Visit [facility] [address] [facility] [address] [place] [address] Go Zazueta MD [address] [facility] [address] [place] [address] 01/15/2025 9:45 AM EDT Office Visit [facility] [address] [facility] [address] [place] [address] Joy Skinner APRN [address] [facility] [address] [place] [address] documented as of this encounter Procedures Procedure Name Priority Date/Time Associated Diagnosis Comments ECHO COMPLETE W/ DOPPLER AND COLOR FLOW Routine 09/10/2022 11:14 AM EST Precordial chest pain History of Takotsubo cardiomyopathy Rapid palpitations documented in this encounter Results * (ABNORMAL) ECHO COMPLETE W/ DOPPLER AND COLOR FLOW (09/10/2022 11:14 AM EST) Target HR (85%) 123 bpm Max. Pred. HR (100%) 145 bpm EF(MOD-bp) 64.0 % LVIDd 4.3 cm LVIDs 3.1 cm IVSd 0.96 cm LVPWd 1.02 cm FS 27.9 % IVS/LVPW 0.94 cm ESV(cubed) 30.7 ml LV Sys Vol (BSA corrected) 14.9 cm2 EDV(cubed) 81.7 ml LV Cassidy Vol (BSA corrected) 41.0 cm2 LVOT area 3.1 cm2 LV mass(C)d 142.8 grams LVOT diam 2.00 cm EDV(MOD-sp2) 67.0 ml EDV(MOD-sp4) 77.0 ml ESV(MOD-sp2) 24.0 ml ESV(MOD-sp4) 28.0 ml SV(MOD-sp2) 43.0 ml SV(MOD-sp4) 49.0 ml SVi(MOD-SP2) 22.9 ml/m2 SVi(MOD-SP4) 26.1 ml/m2 EF(MOD-sp2) 64.2 % EF(MOD-sp4) 63.6 % MV E max lisandro 103.0 cm/sec MV A max lisandro 109.0 cm/sec MV dec time 0.19 msec MV E/A 0.94 LA ESV Index (BP) 28.2 ml/m2 SV(LVOT) 78.2 ml LA dimension (2D) 3.7 cm LV V1 max 102.0 cm/sec LV V1 max PG 4.2 mmHg LV V1 mean PG 2.00 mmHg LV V1 VTI 24.9 cm Ao pk lisandro 146.0 cm/sec Ao max PG 8.5 mmHg Ao mean PG 5.0 mmHg Ao V2 VTI 34.7 cm RIK(I,D) 2.25 cm2 MV max PG 5.1 mmHg MV mean PG 3.0 mmHg MV V2 VTI 30.7 cm MVA(VTI) 2.5 cm2 TR max lisandro 249.0 cm/sec TR max PG 24.8 mmHg PA V2 max 96.7 cm/sec PA acc slope 565.0 cm/sec2 PA acc time 0.13 sec PA pr(Accel) 21.9 mmHg PI end-d lisandro 105.0 cm/sec Ao root diam 2.6 cm BH CV VAS BP LEFT ARM 145/82 mmHg IVRT 77.0 msec Med Peak E' Lisandro 7.50 cm/sec Lat Peak E' Lisandro 9.0 cm/sec Avg E/e' ratio 12.48 RV Base 3.50 cm RV Mid 2.90 cm RV Length 7.90 cm TAPSE (>1.6) 2.20 cm RV S' 14.80 cm/sec RVSP(TR) 27 mmHg RAP systole 3 mmHg Ascending aorta 3.2 cm Echo EF Estimated 60.0(A) % Anatomical Region Laterality Modality Ultrasound Narrative 09/10/2022 1:54 PM EST ?Estimated left ventricular EF = 60% ?Mild mitral valve regurgitation is present. Left Ventricle Left ventricular systolic function is normal. Calculated left ventricular EF = 64% Estimated left ventricular EF = 60% Normal left ventricular cavity size and wall thickness noted. All left ventricular wall segments contract normally. Right Ventricle Normal right ventricular cavity size, wall thickness, systolic function and septal motion noted. Left Atrium Normal left atrial size and volume noted. Right Atrium Normal right atrial cavity size noted. Mitral Valve The mitral valve is structurally normal with no significant stenosis present. Mild mitral valve regurgitation is present. Tricuspid Valve The tricuspid valve is structurally normal with no significant stenosis present. Trace tricuspid valve regurgitation is present. Estimated right ventricular systolic pressure from tricuspid regurgitation is normal (<35 mmHg). Calculated right ventricular systolic pressure from tricuspid regurgitation is 27 mmHg. Aortic Valve The aortic valve is structurally normal with no regurgitation or stenosis present. Pulmonic Valve The pulmonic valve is structurally normal with no significant stenosis present. There is trace pulmonic valve regurgitation present. Pericardium The pericardium is normal. There is no evidence of pericardial effusion. . Greater Vessels No dilation of the aortic root is present. The inferior vena cava is normally sized. us Joy Skinner APRN CV ECHO ORDERABLES Final R esult documented in this encounter Visit Diagnoses Diagnosis Precordial chest pain Precordial pain History of Takotsubo cardiomyopathy Takotsubo syndrome Rapid palpitations Palpitations documented in this encounter Care Teams Vp Home Health Relationship Specialty Start Date End Date Nurys Curtis APRN [address] [place], [place] [id number] PCP - General Family Medicine 07/22/22 12/20/22 documented as of this encounter
--- OUTSIDE RECORDS SUMMARY | 2024-10-02 13:09 | XMS_ITS | Encounter Summary ---
Author Organization [facility] Address [address] [place] [address] Care Team Providers Care Real Estate Rental Agent Name Role Phone Franko Juarez MD Primary Care Provider [phone] Reason for Referral * MRI/CAT/PET Scan (Routine) - Closed Specialty Diagnoses / Procedures Referred By Contac t Referred To Contact Radiology Diagnoses Cyst of left knee joint Procedures MRI Knee Left With & Without Contrast Go Zazueta MD [address] [place] [address] Phone: tel: fax: [facility] MRI AT [address] [address] Phone: tel: fax: Referral ID Status Reason Start Date Expiration Date Visits Re quested Visits Authorized [id number] Closed 08/30/2023 08/29/2024 1 1 Reason for Visit * Reason Comments Pain Encounter Details Date Type Department Care Team (Late st Contact Info) Description 08/30/2023 3:50 PM EDT Office Visit [facility] MEDICINE [address] [place] [address] Go Zazueta MD [address] [place] [address] Cyst of left knee joint (Primary Dx) Social History Tobacco Use Types Packs/Day Years [...] Sign Reading Time Taken Comments Blood Pressure 126/84 08/30/2023 3:24 PM EDT Pulse - - Temperature - - Respiratory Rate - - Oxygen Saturation - - Inhaled Oxygen Concentration - - Weight 76.1 kg (167 lb 12.8 oz) 08/30/2023 3:24 PM EDT Height 165.1 cm (5' 5 ) 08/30/2023 3:24 PM EDT Body Mass Index 27.92 08/30/2023 3:24 PM EDT documented in this encounter Progress Notes * Go Zazueta MD - 08/30/2023 3:50 PM EDT Images from the original note were not included. [facility] [place] [facility]opa[facility] Clinic Note Subjective Chief Complaint Patient presents with Left Knee - Pain HPI Rachael Fleming is a 77 y.o. female who presents with new problem of: left knee pain. Onset: mechanical fall (12/2022), when she slipped getting out of a truck and had the onset of pain afterwards. The issue has been ongoing for 7 month(s). Pain is a 3/10 on the pain scale. Pain is described asburning and shooting. Associated symptoms include pain, swelling, and stiffness. The pain is worse with walking, climbing stairs, and rising from seated position; resting, ice, and heat improve the pain. Previous treatments have included: NSAIDS and physical therapy. Pain is located on the lateral side of the knee. She had an MRI performed which showed a large cyst, suspected to be a ganglion or synovial cyst laterally. She had an injection several months ago without significant relief. No attempts at aspiration of the cyst. Seen previously by Dr. Selby and Dr. Washington. Here today for a second opinion. I have reviewed the following portions of [...] Acute hemorrhagic cystitis hospitalized at [facility], 06/21/2015 Asthma Atrial tachycardia Chest pain 06/04/2017 [...] disease) 11/05/2016 Takotsubo cardiomyopathy Initially diagnosed at [place] 2007. EF 20 at that time. 2008 EF 55% Past Surgical History: Procedure Laterality Date BREAST LUMPECTOMY Right 20 years ago- extracted and benign CARDIAC CATHETERIZATION 2002 no stents. CARDIAC CATHETERIZATION N/A 10/26/2016 Procedure: Left Heart Cath; Surgeon: Lisa Hensley MD; Location: [facility] CATH INVASIVE LOCATION; Service: CARDIAC ELECTROPHYSIOLOGY PROCEDURE N/A 01/31/2021 Procedure: Loop insertion-; Surgeon: Abebe Diego MD; Location: [facility] INVASIVE LOCATION; Service: Cardiovascular; Laterality: N/A; CATARACT [...] is not hyperactive. Objective Physical Exam BP 126/84 Ht 165.1 cm (65 ) Wt 76.1 kg (167 lb 12.8 oz) BMI 27.92 kg/m?? Body mass index is 27.92 kg/m??. General: Mental Status: Alert Appearance: Cooperative, in no acute distress Build and Nutrition: Well-nourished well-developed female Orientation: Alert and oriented to person, place and time Posture: Normal Gait: Nonantalgic/normal Integument: Left knee: No skin lesions, no rash, no ecchymosis Neurologic: Sensation: Left foot: Intact to light touch on the dorsal and plantar aspect Motor: Left lower extremity: 5/5 quadriceps, hamstrings, ankle dorsiflexors, and ankle plantar flexors Vascular: Left lower extremity: 2+ dorsalis pedis pulse, prompt capillary refill Lower Extremities: Left Knee: Tenderness: Lateral tenderness Effusion: None Swelling: None Crepitus: None Atrophy: None Range of motion: Extension: 0?? Flexion: 120?? Instability: No varus laxity, no valgus laxity, negative anterior drawer Deformities: None Imaging/Studies Imaging Results (Last 24 Hours) No results found for the last 24 hours. Narrative & Impression MRI KNEE LEFT WO CONTRAST Date of Exam: 04/20/2023 9:20 AM EDT Indication: rule out stress fracture. Injury in December. Pain. Comparison: Knee radiograph 01/13/2023 [facility] Technique: Routine multiplanar/multisequence images of the left knee were obtained without contrastadministration. Findings: Osseous Structures and Intra-Articular Bone marrow [...] tendon are normal in appearance. IMPRESSION: Impression: There is a large multiloculated cystic mass and/or collection in the anterior lateral knee which appears intra-articular. It measures up to 6 cm. This may be an atypical ganglion cyst however post contrast-enhanced imaging is recommended for better evaluation. 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 There is mild medial compartment arthritis. Electronically Signed: Maliha Renteriamarian 04/20/2023 12:27 PM EDT Workstation ID: [id number] I reviewed the above imaging, and agree with findings. Assessment and Plan Diagnoses and all orders for this visit: 1. Cyst of left knee joint (Primary) - MRI Knee Left With & Without Contrast; Future 1. Cyst of left knee joint I reviewed my findings with the patient. She has persistent lateral knee pain, and I did review theMRI which showed a large cyst, suspicious for a ganglion, although atypical according to the radiology report. Because of the continued pain and recommendation of the radiologist, we have decided to proceed with an MRI both with and without IV contrast to better clarify the cyst. We may consider anaspiration and injection if appropriate in the future. No indications for surgical intervention at this time. Patient would like to proceed with this plan. Return for After Imaging Study. Go Zazueta MD 08/30/23 16:42 EDT documented in this encounter Plan of Treatment Upcoming Encounters Date Type Department Care Team (Late st Contact Info) Description 12/22/2024 9:50 AM EST Office Visit [facility]TS MEDICINE [address] [facility] [address] [place] [address] Go Zazueta MD [facility] [address] [place] [id number] 01/15/2025 9:45 AM EDT Office Visit [facility] [address] [place] [address] Joy Skinner, BO [address] [place] [address] documented as of this encounter Results * MRI Knee Left [...] MD 10/19/2023 11:25 AM EST Workstation ID: [id number] Narrative 10/19/2023 11:25 AM EST MRI KNEE [...] Patella has lateral subluxation. There is patella jessu. Extensor mechanismis intact. Cartilage Full-thickness cartilage loss [...] MD 10/19/2023 11:25 AM EST Workstation ID: [id number] Go Zazueta MD IM MRI ORDERABLES Final Resul t documented in this encounter Visit Diagnoses Diagnosis Cyst of left knee joint- Primary Cyst of left knee joint documented in this encounter Care Teams Real Estate Rental Agent Relationship Specialty Start Date End Date Franko Juarez MD PCP - General Family Medicine 12/21/22 documented as of this encounter
--- OUTSIDE RECORDS SUMMARY | 2024-10-02 13:09 | XMS_ITS | Encounter Summary ---
Author Organization [facility] Address [address] [place] [address] Care Team Providers Care Obstetrics Nurse Name Role Phone Franko Juarez MD Primary Care Provider +1- [phone] Reason for Visit * Reason Comments Follow-up 5 day follow up --Ac marshall pain of right knee (MRI preformed 11/11/23) Encounter Details Date Type Department Care Team (Late st Contact Info) Description 11/15/2023 9:00 AM EST Office Visit [facility] [address] [place] [address] Go Zazueta MD [address] [place] [address] Osteoarthritis of right knee, unspecified osteoarthritis type (Primary Dx) Social History Tobacco Use Types [...] Sign Reading Time Taken Comments Blood Pressure 122/74 11/15/2023 8:41 AM EST Pulse - - Temperature - - Respiratory Rate - - Oxygen Saturation - - Inhaled Oxygen Concentration - - Weight 76.2 kg (168 lb) 11/15/2023 8:41 AM EST Height 165.1 cm (5' 5 ) 11/15/2023 8:41 AM EST Body Mass Index 27.96 11/15/2023 8:41 AM EST documented in this encounter Progress Notes * Go Zazueta MD - 11/15/2023 9:00 AM EST Images from the original note were not included. [facility] Note Subjective Chief Complaint Patient presents with Follow-up 5 day follow up --Acute pain of right knee (MRI preformed 11/11/23) HPI It has been 5 day(s) since Ms. Fleming's last visit. She returns to clinic today for follow-up of right knee pain. The issue has been ongoing for 1 month(s). She rates her pain a 6/10 on the pain scale. Previous/current treatments: cane/walker and NSAIDS. Current symptoms: same as prior visit. The pain is worse with walking, standing, climbing stairs, and rising from seated position; resting, sitting, ice, heat, and assistive device (cane/walker) improve the pain. Overall, she is doing better.Here today to review the MRI results. I have reviewed the following portions of [...] hemorrhagic cystitis hospitalized at [facility], 06/21/2015 Asthma Atrial tachycardia Chest pain [...] disease) 11/05/2016 Takotsubo cardiomyopathy Initially diagnosed at [place] 2007. EF 20 at that time. 2008 EF 55% Past Surgical History: Procedure Laterality Date BREAST LUMPECTOMY Right 20 years ago- extracted and benign CARDIAC CATHETERIZATION 2002 no stents. CARDIAC CATHETERIZATION N/A 10/26/2016 Procedure: Left Heart Cath; Surgeon: Lisa Hensley MD; Location: [facility] CATH INVASIVE LOCATION; Service: CARDIAC ELECTROPHYSIOLOGY PROCEDURE N/A 01/31/2021 Procedure: Loop insertion-; Surgeon: Abebe Diego MD; Location: [facility] CATH INVASIVE LOCATION; Service: Cardiovascular; Laterality: N/A; [...] is not hyperactive. Objective Physical Exam BP 122/74 Ht 165.1 cm (65 ) Wt 76.2 kg (168 lb) BMI 27.96 kg/m?? Body mass index is 27.96 kg/m??. General: Mental Status: Alert Appearance: Cooperative, in no acute distress Build and Nutrition: Well-nourished female Orientation: Alert and oriented to person, place and time Posture: Normal Gait: Limp on the right Integument: Right knee: no skin lesions, no rash, no ecchymosis Lower Extremities: Right Knee: Effusion: 1-2+ Swelling: None Crepitus: None Atrophy: None Range of motion: Extension: 0?? Flexion: 120?? Instability: No varus laxity, no valgus laxity, negative anterior drawer Deformities: None Imaging/Studies Imaging Results (Last 24 Hours) No results found for the last 24 hours. MRI KNEE RIGHT WO CONTRAST Date of Exam: 11/11/2023 9:03 AM EST Indication: Internal derangement, right knee. Comparison: Knee radiographs 11/10/2023 Technique: Routine multiplanar/multisequence images of the right knee were [...] is intact. Medial collateral ligament is intact. Lateral collateral ligament complex is intact including the [...] MD 11/11/2023 10:23 AM EST Workstation ID: [id number] I reviewed the above imaging, and agree with findings. Assessment and Plan Diagnoses and all orders for this visit: 1. Osteoarthritis of right knee, unspecified osteoarthritis type (Primary) - - Large Joint Arthrocentesis: R knee 1. Osteoarthritis of right knee, unspecified osteoarthritis type I reviewed my findings with the patient. MRI shows degenerative changes in the knee, with likely degenerative meniscal pathology laterally. At this point, I recommend a trial of an aspiration and injection, and this was provided today. I will see her back in 2 months, but sooner for any problems. Procedure Note: The potential benefits of performing a therapeutic right knee joint aspiration and injection, as well as potential risks (including, but [...] skin at the injection site. Via the superior lateral approach, 10 cc of blood-tinged straw-colored fluid was aspirated then 1ml of Kenalog 40mg/ml mixed with 4ml 0.5% ropivacaine plain was injected into the knee joint. The patient tolerated the procedure well, experiencing 75% improvement a few minutes following the injection. There were no complications. Band-Aid was applied to the injection site. Post- procedural instructions were given to the patient and/or their caregiver. Return in about 2 months (around 01/14/2024). Go Zazueta MD 11/15/23 09:51 EST * Madyson Vasquez MA - 11/15/2023 9:00 AM ESTAssociated Order(s): - Large Joint Arthrocentesis: R knee Post-Procedure Diagnose(s): Acute pain of right knee Procedure - Large Joint Arthrocentesis: R knee on 11/15/2023 9:23 AM Indications: pain Details: 21 G needle, anterolateral approach Medications: 4 mL ropivacaine 0.5 %; 40 mg triamcinolone acetonide 40 MG/ML Aspirate: 10 mL yellow Outcome: tolerated well, no immediate complications Procedure, treatment alternatives, risks and benefits explained, specific risks discussed. Consent was given by the patient. Immediately prior to procedure a time out was called to verify the correctpatient, procedure, equipment, clinical support specialist and site/side marked as required. Patient was prepped and draped in the usual sterile fashion. documented in this encounter Miscellaneous Notes * ACP (Advance Care Planning) - Kaitlin Baer PCT - 11/15/2023 9:00 AM EST Advance Care Planning ACP discussion was declined by the patient. Patient does not have an advance directive, declines further assistance. documented in this encounter Plan of Treatment Upcoming Encounters Date Type Department Care Team (Late st Contact Info) Description 12/22/2024 9:50 AM EST Office Visit [facility] [address] [facility] [address] [place] [address] Go Zazueta MD [address] [facility] [address] [place], [place] [id number] 01/15/2025 9:45 AM EDT Office Visit [facility] CARDIOLOGY [address] [facility] [address] [place] [address] Joy Skinner APRN [address] [facility] [address] [place] [address] documented as of this encounter Procedures Procedure Name Priority Date/Time Associated Diagnosis Comments HI ARTHROCENTESIS ASPIR&/INJ MAJOR JT/BURSA W/O US Routine 11/15/2023 9:23 AM EST Osteoarthritis of right knee, unspecified osteoarthritis type documented in this encounter Results * HI ARTHROCENTESIS ASPIR&/INJ MAJOR JT/BURSA W/O US (11/15/2023 9:23 AM EST) Narrative Madyson Vasqeuz MA - 11/15/2023 9:23 AM EST Madyson Vasquez MA ? 11/15/2023 ??9:51 AM - Large Joint Arthrocentesis: R knee on 11/15/2023 9:23 AM Indications: pain Details: 21 G needle, anterolateral approach Medications: 4 mL ropivacaine 0.5 %; 40 mg triamcinolone acetonide 40 MG/ML Aspirate: 10 mL yellow Outcome: tolerated well, no immediate complications Procedure, treatment alternatives, risks and benefits explained, specific risks discussed. Consent was given by the patient. Immediately prior to procedure a time out was called to verify the correct patient, procedure, equipment, clinical support specialist and site/side marked as required. Patient was prepped and draped in the usual sterile fashion. Go Zazueta MD PROCEDURE/MINOR SURGICAL ORDER SUHAIL Final Result documented in this encounter Visit Diagnoses Diagnosis Osteoarthritis of right knee, unspecified osteoarthritis type- Primary documented in this encounter Administered Medications Inactive Administered Medications - up to 3 most recent administrations Medication Order MAR Action Action Date Dose Rate Site ropivacaine (NAROPIN) 0.5 % injection 4 mL 4 mL, One-Time Injection, Starting on Wed11/15/23 at 0923, For 1 doseIndications:Osteoarthritis of right knee, unspecified osteoarthritis type Given 11/15/2023 9:23 AM EST 4 mL Knee Right triamcinolone acetonide (KENALOG-40) injection 40 mg 40 mg, One-Time Injection, Starting on Wed11/15/23 at 0923, For 1 doseIndications:Osteoarthritis of right knee, unspecified osteoarthritis type Given 11/15/2023 9:23 AM EST 40 mg Knee Right documented in this encounter Care Teams Obstetrics Nurse Relationship Specialty Start Date End Date Franko Juarez MD PCP - General Family Medicine 12/21/22 documented as of this encounter
--- OUTSIDE RECORDS SUMMARY | 2024-10-02 13:09 | XMS_ITS | Encounter Summary ---
Author Organization [facility] Address [address] [place] [address] Care Team Providers Care Canvas Worker Apprentice Name Role Phone Franko Juarez MD Primary Care Provider +1- [phone] Reason for Visit * Reason Comments Follow-up History of Takotsubo cardiomyopathy Encounter Details Date Type Department Care Team (Late st Contact Info) Description 12/21/2022 10:45 AM EST Office Visit [facility] [address] [place] [address] Abebe Diego MD [address] [facility] [address] [place] [address] Precordial chest pain (Primary Dx); History of [...] Sign Reading Time Taken Comments Blood Pressure 110/70 12/21/2022 10:57 AM EST Pulse 69 12/21/2022 10:57 AM EST Temperature - - Respiratory Rate - - Oxygen Saturation 100% 12/21/2022 10:57 AM EST Inhaled Oxygen Concentration - - Weight 77.1 kg (170 lb) 12/21/2022 10:57 AM EST Height 167.6 cm (5' 6 ) 12/21/2022 10:57 AM EST Body Mass Index 27.44 12/21/2022 10:57 AM EST documented in this encounter Progress Notes * Abebe Diego MD - 12/21/2022 10:45 AM EST [facility] Cardiology Subjective: Encounter Date: 12/21/2022 Patient ID: Rachael Fleming is a 77 y.o. female. Chief Complaint: Follow-up (History of Takotsubo cardiomyopathy) PROBLEM LIST: 1. Takotsubo cardiomyopathy, 3 known episodes (1996, 2007, 2015): a. Initial diagnosis??(1996)??with subsequent recovery. b. [facility],??08/1997: Normal EF. Normal coronary arteries. c. Recurrence with diagnosis of Takotsubo syndrome??(2007)??at the [facility]. d. [facility],??06/2008: EF 20%. No significant coronary artery disease.?? e. Echo,??01/2009: EF??55%. f. [facility],??10/26/2016:??EF 20%.??Takotsubo/stress-induced cardiomyopathy with severe LV systolic dysfunction.??Near normal coronary arteries. g. Echo,??10/28/2016: EF 41%.??Findings consistent with stress-induced (Takotsubo) cardiomyopathy.??Mild MR, mild TR.?? h. Echo, 12/21/2016: EF normalized at 55%. Normal valves. i. Echo, 06/04/2017: EF 55%. Normal valves. j. Echo, 09/29/2017: EF 65%. Normal valves. k. 2018, evaluated at [facility]. Echo, 09/10/2022: EF 60%. Mild MRAmairani torres [...] and cardiac risk factors. Since last visit, patienthas been doing well overall from a cardiovascular standpoint. She states that she had a spell in September which was reported on her loop recorder. Patient reports that she has not been able to smell or taste since she contracted COVID-19. She has lost weight since last visit. Patient denies chest pain, shortness of breath, [...] ??? aspirin 81 MG EC tablet, Take 81 mg by mouth Daily., Disp: , Rfl: ??? carvedilol (COREG) 3.125 MG tablet, Take 1 tablet by mouth 2 (Two) Times a Day With Meals., Disp: 180 tablet, Rfl: 3 ??? cyclobenzaprine (FLEXERIL) 5 MG tablet, Take 1 tablet by mouth 3 (Three) Times a Day As Needed for Muscle Spasms., Disp: 15 tablet, Rfl: 0 ??? fluticasone (FLONASE) 50 MCG/ACT nasal spray, , Disp: , Rfl: ??? hydroCHLOROthiazide (MICROZIDE) 12.5 MG capsule, Take 1 capsule by mouth Every Morning., Disp: 90 capsule, Rfl: 1 ??? isosorbide mononitrate (IMDUR) 30 MG 24 hr tablet, TAKE ONE TABLET BY MOUTH 2 TIMES A DAY, Disp: 180 tablet, Rfl: 1 ??? loratadine (CLARITIN) 10 MG tablet, Take 1 tablet by mouth Daily., Disp: 90 tablet, Rfl: 0 ??? losartan (COZAAR) 50 MG tablet, Take 0.5 tablets by mouth 2 (Two) Times a Day., Disp: 90 tablet, Rfl: 0 ??? nitroglycerin (Nitrostat) 0.4 MG SL tablet, Place 1 tablet under the tongue Every 5 (Five) Minutes As Needed for Chest Pain. Take no more than 3 doses in 15 minutes., Disp: 25 tablet, Rfl: 5 ??? omeprazole (priLOSEC) 40 MG capsule, Take 1 capsule by mouth Daily., Disp: 90 capsule, Rfl: 0 ??? pravastatin (Pravachol) 20 MG tablet, Take 1 tablet by mouth Every Night. Take with Co-enzyme Q10-100 mg daily (Patient taking differently: Take 20 mg by mouth Every Other Day. [facility]), Disp: 90 tablet, Rfl: 3 ??? zolpidem (AMBIEN) 5 MG tablet, , Disp: , Rfl: Current Facility-Administered Medications: ??? albuterol (PROVENTIL HFA;VENTOLIN HFA) inhaler 2 puff, 2 puff, Inhalation, Q4H DEIONN, Kushal Silverman APRN The following portions of the patient's history were reviewed and updated as appropriate: allergies, current medications, past family history, past medical history, past social history, past surgicalhistory and problem list. Review of Systems Constitutional: Negative. Cardiovascular: Positive for irregular heartbeat. Negative for chest pain, dyspnea on exertion, legswelling, palpitations and syncope. Respiratory: Positive for snoring. Negative for shortness of breath. Hematologic/Lymphatic: Negative for bleeding problem. Does not bruise/bleed easily. Skin: Negative for rash. Musculoskeletal: Negative for muscle weakness and myalgias. Gastrointestinal: Negative for heartburn, nausea and vomiting. Neurological: Negative for dizziness, light-headedness, loss of balance and numbness. Objective: Vitals: 12/21/22 1057 BP: 110/70 BP Location: Right arm Patient Position: Sitting Cuff Size: Adult Pulse: 69 SpO2: 100% Weight: 77.1 kg (170 lb) Height: 167.6 cm (66 ) Constitutional: Appearance: Well-developed. Neck: Thyroid: No [...] 08/19/2022 BUN 12 08/19/2022 CREATININE 0.77 08/19/2022 BCR 15.6 08/19/2022 NA 139 08/19/2022 [...] Component Value Date HGBA1C 5.9 (H) 07/22/2022 Procedures Assessment: Diagnoses and all orders for this visit: 1. Precordial chest pain (Primary) 2. History of Takotsubo cardiomyopathy 3. Rapid palpitations 4. Essential hypertension Impression: 1. Precordial chest pain. Stable and asymptomatic. 2. History of Takotsubo cardiomyopathy. Echo on 09/10/2022 showed EF 60%. Continue on aspirin for antiplatelet therapy. Continue on Imdur and nitroglycerin for chest pain. 3. Rapid palpitations. Loop recorder implanted 01/2021 and shows one event in September. Corresponded to sinus 4. Essential hypertension. Well controlled. Continue on carvedilol, losartan, and hydrochlorothiazide for hypertension. Plan: 1. Stable cardiac status. 2. Patient was encouraged to continue to be active and have a healthy diet. 3. Continue current medications. 4. Revisit in 12 MO, or sooner as needed. Scribed for Abebe Diego MD by Lesley Lowry. 12/21/2022 11:45 EST Abebe Diego MD Please note that portions of this note may have been completed with a voice recognition program. Efforts were made to edit the dictations, but occasionally words are mistranscribed. documented in this encounter Plan of Treatment Upcoming Encounters Date Type Department Care Team (Late st Contact Info) Description 12/22/2024 9:50 AM EST Office Visit [facility] [address] [facility] [address] [place] [address] Go Zazueta MD [address] [facility] [address] [place] [id number] 01/15/2025 9:45 AM EDT Office Visit [facility] [address] [facility] [address] [place] [phone] Joy Skinner APRN [address] [facility] [address] [place] [id number] documented as of this encounter Visit Diagnoses Diagnosis Precordial chest pain- Primary Precordial pain History of Takotsubo cardiomyopathy Takotsubo syndrome Rapid palpitations Palpitations Essential hypertension Unspecified essential hypertension documented in this encounter Care Teams Canvas Worker Apprentice Relationship Specialty Start Date End Date Franko Juarez MD PCP - General Family Medicine 12/21/22 documented as of this encounter
--- OUTSIDE RECORDS SUMMARY | 2024-10-02 13:09 | XMS_ITS | Encounter Summary ---
Author Organization [facility] Address [address] [place] [address] Care Team Providers Care Fish Agent Name Role Phone Nurys Curtis APRN Primary Care Provider +1- [phone] Encounter Details Date Type Department Care Team (Late st Contact Info) Description 09/29/2022 Telephone [facility] CARDIOLOGY [address] [facility] [address] [place] [address] Abebe Diego MD [address] [facility] [address] [place] [address] Social History Tobacco Use Types Packs/Day Years [...] Telephone Encounter - Grisel Irwin, RN - 09/29/2022 3:16 PM EST Left VM advising of below ----- Message from Joy Skinner APRN sent at 09/29/2022 10:25 AM EST ----- Please let patient know her stress test was normal. ----- Message ----- From: Abebe Diego MD Sent: 09/28/2022 6:07 PM EST To: Joy Skinner APRN documented in this encounter Plan of Treatment Upcoming Encounters Date Type Department Care Team (Late st Contact Info) Description 12/22/2024 9:50 AM EST Office Visit [facility]IC[facility] [address] [facility] [address] [place] [address] Go Zazueta MD [address] [place] [id number] 01/15/2025 9:45 AM EDT Office Visit [facility] CARDIOLOGY [address] [facility] [address] [place] [phone] Joy Skinner APRN [address] [facility] [address] [facility] [address] [place] [id number] documented as of this encounter Visit Diagnoses Not on filedocumented in this encounter Care Teams Fish Agent Relationship Specialty Start Date End Date Nurys Curtis APRN [address] [place] [address] PCP - General Family Medicine 07/22/22 12/20/22 documented as of this encounter
--- OUTSIDE RECORDS SUMMARY | 2024-10-02 13:09 | XMS_ITS | Encounter Summary ---
[facility] Address [address] [place] [address] Care Team Providers Care Insurance Claims Supervisor Name Role Phone Franko Juarez MD Primary Care Provider +1- [phone] Reason for Visit * Reason Comments Pain Encounter Details Date Type Department Care Team (Late st Contact Info) Description 04/07/2023 11:10 AM EDT [facility] Visit [facility] [address] [place] [address] Zaire Selby MD [address] [place] [address] Acute pain of left knee (Primary Dx); Injury of left knee, initial encounter Social History Tobacco Use Types Packs/Day Years Used Date Smoking Tobacco: Never Smokeless Tobacco: Never Tobacco Cessation:Counseling Given: Not Answered Alcohol Use Standard Drinks/Week Comments Not Currently [...] Sign Reading Time Taken Comments Blood Pressure 130/80 04/07/2023 10:49 AM EDT Pulse - - Temperature - - Respiratory Rate - - Oxygen Saturation - - Inhaled Oxygen Concentration - - Weight 77.1 kg (170 lb) 04/07/2023 10:49 AM EDT Height 165.1 cm (5' 5 ) 04/07/2023 10:49 AM EDT Body Mass Index 28.29 04/07/2023 10:49 AM EDT documented in this encounter Progress Notes * Zaire Selby MD - 04/07/2023 11:10 AM EDT Images from the original note were not included. [facility] [place] Subjective Pain of the Left Knee HPI Rachael Fleming is a 77 y.o. female. She is a new patient with left knee pain. This happened with an injury on January 04. She had a cortisone injection January 22. She had physical therapy. Her physical therapist is concerned she is not getting better. She is here for second opinion. She is able to walk but has pain that keeps her from sleeping at night. Pain with weightbearing. Past Medical History: Diagnosis Date Acute hemorrhagic cystitis hospitalized at [facility], 06/21/2015 Asthma Atrial tachycardia Chest pain [...] disease) 11/05/2016 Takotsubo cardiomyopathy Initially diagnosed at [facility] 2007. EF 20 at that time. 2008 [...] by mouth Every Morning. 90 capsule 3 HYDROcodone-acetaminophen (NORCO) 5-325 MG per tablet isosorbide mononitrate (IMDUR) 30 MG 24 hr tablet Take 1 tablet by mouth 2 (Two) Times a Day. 180 tablet 3 loratadine (CLARITIN) 10 MG tablet Take 1 tablet by mouth Daily. 90 tablet 0 losartan (COZAAR) 50 MG tablet Take 0.5 tablets by mouth 2 (Two) Times a Day. 90 tablet 3 meloxicam (MOBIC) 7.5 MG tablet nitroglycerin (Nitrostat) 0.[address] 1 tablet under the tongue Every 5 (Five) Minutes As Needed for Chest Pain. Take no more than 3 doses in 15 minutes. 25 tablet 5 omeprazole (priLOSEC) 40 MG capsule Take 1 capsule by mouth Daily. 90 capsule 0 zolpidem (AMBIEN) 5 MG tablet Current Facility-Administered Medications on File Prior to Visit Medication Dose Route Frequency Provider Last Rate Last Admin [DISCONTINUED] albuterol (PROVENTIL HFA;VENTOLIN HFA) inhaler 2 puff 2 puff Inhalation Q4H PRN Kushal Silverman APRN Allergies Allergen Reactions Penicillins Hives Phenergan [Promethazine Hcl] Hives Statins Myalgia Diclofenac Sodium Rash Metronidazole Rash Sudafed [Pseudoephedrine Hcl] Rash Sulfa Antibiotics Rash Review of Systems Constitutional: Negative. HENT: Negative. Eyes: Negative. Respiratory: Negative. Cardiovascular: Negative. Gastrointestinal: Negative. Endocrine: Negative. Genitourinary: Negative. Musculoskeletal: Positive for arthralgias. Skin: Negative. Allergic/Immunologic: Negative. Neurological: Negative. Hematological: Negative. Psychiatric/Behavioral: Negative. I reviewed the patient's chief complaint, history of present illness, review of systems, past medical history, surgical history, family history, social history, medications and allergy list. Objective Physical Exam BP 130/80 Ht 165.1 cm (65 ) Wt 77.1 kg (170 lb) BMI 28.29 kg/m?? Body mass index is 28.29 kg/m??. General Mental Status - alert General Appearance - cooperative, well groomed, not in acute distress Orientation - Oriented X3 Build & Nutrition - well developed and well nourished Posture - normal posture Gait - normal gait Ortho Exam Left knee tender medial joint. Full range of motion. Stable ligament exam with tenderness to valgusstress on the MCL. Medial joint line tenderness. Positive Namita. Imaging/Studies Imaging Results (Last 24 Hours) No results found for the last 24 hours. I viewed her x-rays from January 03 which are negative Assessment Assessment: 1. Acute pain of left knee 2. Injury of left knee, initial encounter Plan: Continue her meloxicam that was ordered Wednesday She has failed physical therapy anti-inflammatories including meloxicam and cortisone injection. Therefore I ordered an MRI of her left knee. She will follow-up after the MRI. Zaire Selby MD 04/07/23 11:00 EDT Dictated Utilizing [employer] Dictation. documented in this encounter Plan of Treatment Upcoming Encounters Date Type Department Care Team (Late st Contact Info) Description 12/22/2024 9:50 AM EST Office Visit [facility] [address] [facility] [address] [place] [phone] oG Zazueta MD [address] [facility] [address] [place], [place] [id number] 01/15/2025 9:45 AM EDT Office Visit [facility] [address] [facility] [address] [place] [address] Joy Skinner APRN [address] [facility] [address] [place], [place] [id number] documented as of this encounter Visit Diagnoses Diagnosis Acute pain of left knee- Primary Injury of left knee, initial encounter documented in this encounter Care Teams Insurance Claims Supervisor Relationship Specialty Start Date End Date Franko Juarez MD PCP - General Family Medicine 12/21/22 documented as of this encounter
--- OUTSIDE RECORDS SUMMARY | 2024-10-02 13:09 | XMS_ITS | Encounter Summary ---
Author Organization [facility] Address [address] [place] [id number] Care Team Providers Care Steak Sauce Maker Name Role Phone Nurys Curtis APRN Primary Care Provider +1- [phone] Reason for Visit * Reason Onset Date Comments Med Refill 11/30/2022 Encounter Details Date Type Department Care Team (Late st Contact Info) Description 11/30/2022 Refill [facility] [address] [place] [phone] Nurys Curtis APRN [address] [place] [address] Social History Tobacco Use Types [...] Telephone Encounter - Ceci Lowery MA - 11/30/2022 12:51 PM EST Last visit on 08/19/2022 rx sent * Telephone Encounter - Aram Irwin RegSched Rep - 11/30/2022 12:42 PM EST Caller: Rachael Fleming Relationship: Self Best call back number: [phone] Requested Prescriptions: Requested Prescriptions Pending Prescriptions Disp Refills ??? omeprazole (priLOSEC) 40 MG capsule 1 capsule 3 Sig: Take 1 capsule by mouth Daily. Pharmacy where request should be sent: [facility] - [address] - [phone] - [phone] FX Does the patient have less than a 3 day supply: [x] Yes [] No Would you like a call back once the refill request has been completed: [x] Yes [] No If the office needs to give you a call back, can they leave a voicemail: [x] Yes [] No Sergio Boyce 11/30/22 12:43 EST documented in this encounter Plan of Treatment Upcoming Encounters Date Type Department Care Team (Late st Contact Info) Description 12/22/2024 9:50 AM EST Office Visit [facility] [address] [facility] [address] [place] [address] Go Zazueta MD [address] [facility] [address] [place] [id number] 01/15/2025 9:45 AM EDT Office Visit [facility] CARD[facility] [address] [place] [address] Joy Skinner, HEALTH ADMINISTRATION TEACHER [address] [place] [address] documented as of this encounter Visit Diagnoses Not on filedocumented in this encounter Care Teams Steak Sauce Maker Relationship Specialty Start Date End Date Nurys Curtis, HEALTH ADMINISTRATION TEACHER [address] [place] [address] PCP - General Family Medicine 07/22/22 12/20/22 documented as of this encounter
--- OUTSIDE RECORDS SUMMARY | 2024-10-02 13:09 | XMS_ITS | Encounter Summary ---
Author Organization [facility] Address [address] [place] [address] Care Team Providers Care Financial Aids Officer Name Role Phone Franko Juarez MD Primary Care Provider +1- [phone] Reason for Visit * Reason Onset Date Comments CHAU - NEW PROBLEM 11/08/2023 Encounter Details Date Type Department Care Team (Late st Contact Info) Description 11/08/2023 Telephone [facility] [address] [place] [address] Go Zazueta MD [address] [place] [address] CHAU - NEW PROBLEM Social History Tobacco Use Types Packs/Day Years [...] encounter Miscellaneous Notes * Telephone Encounter - Angélica Rodas RegSched Rep - 11/08/2023 8:36 AM EST Caller: Bernadette Rachael Mary Handxenia Relationship to patient: Self Best call back number: [phone] Chief complaint: RIGHT KNEE PAIN Type of visit: NEW PROBLEM, NO IMAGING OR PREVIOUS SX Requested date: ELISA Additional notes:PATIENT STATES HER RIGHT KNEE GAVE OUT ON WEDNESDAY AFTERNOON. SHE STATES SHE IS IN ALOT OF PAIN AND HAVING TROUBLE WALKING. HUB UNABLE TO SCHEDULE NEW PROBLEM APPT UNTIL 12/15/23. PATIENT IS ASKING IF SHE CAN BE WORKED IN SOONER, OR WHAT DR. ZAZUETA RECOMMENDS SHE DO. PLEASE CALL HER ELISA. documented in this encounter Plan of Treatment Upcoming Encounters Date Type Department Care Team (Late st Contact Info) Description 12/22/2024 9:50 AM EST Office Visit [facility] MEDICINE [address] [facility] [address] [place] [address] Go Zazueta MD [address] [facility] [address] [place], [place] [id number] 01/15/2025 9:45 AM EDT Office Visit [facility] CARDIOLOG[facility] [address] [facility] [address] [place] [phone] Joy Skinner APRN [address] [facility] [address] [place] [address] documented as of this encounter Visit Diagnoses Not on filedocumented in this encounter Care Teams Financial Aids Officer Relationship Specialty Start Date End Date Franko Juarez MD PCP - General Family Medicine 12/21/22 documented as of this encounter
--- OUTSIDE RECORDS SUMMARY | 2024-10-02 13:09 | XMS_ITS | Encounter Summary ---
Author Organization [facility] Address [address] [place] [address] Care Team Providers Care Underwater Hunter Name Role Phone Franko Juarez MD Primary Care Provider +1- [phone] Encounter Details Date Type Department Care Team (Late st Contact Info) Description 03/24/2023 External PBMM Data [facility] [address] [place] [phone] Pharmacy, Payor Data Social History Tobacco Use Types Packs/Day Years [...] 9:50 AM EST Office Visit [facility] 3000 [facility] [address] [place] [phone] Go Zazueta MD [address] [facility] [address] [place] [address] 01/15/2025 9:45 AM EDT Office Visit [facility] 1720 [facility] [address] [place] [phone] Joy Skinner APRN [address] [facility] [address] [place] [phone] documented as of this encounter Visit Diagnoses Not on filedocumented in this encounter Care Teams Underwater Hunter Relationship Specialty Start Date End Date Franko Juarez MD PCP - General Family Medicine 12/21/22 documented as of this encounter
--- OUTSIDE RECORDS SUMMARY | 2024-10-02 13:09 | XMS_ITS | Encounter Summary ---
Author Organization [facility] Address [address] [place] [address] Care Team Providers Care Controls Technician Name Role Phone Nurys Curtis APRN Primary Care Provider +1 [phone] Reason for Referral * Diagnostic Imaging (Routine) - Closed Specialty Diagnoses / Procedures Referred By Contac t Referred To Contact Diagnoses Precordial chest pain Takotsubo cardiomyopathy Procedures Stress Test With Myocardial Perfusion (1 Day) Joy Skinner APRN [address] [place] [address] Phone: tel: fax: [place] [phone] Phone: tel: Referral ID Status Reason Start Date Expiration Date Visits Re quested Visits Authorized [id number] Closed 09/10/2022 10/10/2022 4 4 Reason for Visit * Diagnostic Imaging (Routine) - Closed Specialty Diagnoses / Procedures Referred By Contac t Referred To Contact Diagnoses Precordial chest pain Takotsubo cardiomyopathy Procedures Stress Test With Myocardial Perfusion (1 Day) Joy Skinner APRN [address] [place] [address] Phone: tel: fax: [address] [address] Phone: tel: Referral ID Status Reason Start Date Expiration Date Visits Re quested Visits Authorized [id number] Closed 09/10/2022 10/10/2022 4 4 Encounter Details Date Type Department Care Team (Late st Contact Info) Description 09/28/2022 8:15 AM EST - 09/28/2022 11:59 PM EST Hospital Encounter [facility] [address] [place] [address] Joy Skinner APRN [address] [facility] [address] [place] [address] Precordial chest pain; History of Takotsubo cardiomyopathy Discharge Disposition: Home or Self Care Social [...] Sign Reading Time Taken Comments Blood Pressure 160/100 09/28/2022 9:55 AM EST Pulse 71 09/28/2022 9:55 AM EST Temperature - - Respiratory Rate - - Oxygen Saturation - - Inhaled Oxygen Concentration - - Weight 78 kg (172 lb) 09/28/2022 9:55 AM EST Height 167.6 cm (5' 6 ) 09/28/2022 9:55 AM EST Body Mass Index 27.76 09/28/2022 9:55 AM EST documented in this encounter Medications [...] [facility] [address] [facility] [address] [place] [address] Go Zazueta MD [address]60 [facility] [address] [place], [place] [phone] 01/15/2025 9:45 AM EDT Office Visit [facility] C[facility] [address] [facility] [address] [place] [address] Joy Skinner APRN [address] [facility] [address] [place] [address] documented as of this encounter Procedures Procedure Name Priority Date/Time Associated Diagnosis Comments STRESS TEST, EXERCISE WITH MYOCARDIAL PERFUSION SPECT (MULTI STUDY) Routine 09/28/2022 10:01 AM EST Precordial chest pain History of Takotsubo cardiomyopathy documented in this encounter Results * STRESS TEST, EXERCISE WITH MYOCARDIAL PERFUSION SPECT (MULTI STUDY) (09/28/2022 10:01 AM EST) Target HR (85%) 123 bpm Max. Pred. HR (100%) 145 bpm BH CV REST NUCLEAR ISOTOPE DOSE 9.5 mCi BH CV STRESS PROTOCOL 1 Kristopher Stage 1 1 Duration Min Stage 1 3 Duration Sec Stage 1 0 Grade Stage 1 10 Speed Stage 1 1.7 BH CV STRESS METS STAGE 1 5 Baseline HR 71 bpm Baseline BP 160/100 mmHg HR Stage 1 113 BP Stage 1 180/100 O2 Stage 1 100 Stage 2 2 HR Stage 2 157 BP Stage 2 170/100 O2 Stage 2 100 Duration Min Stage 2 2 Duration Sec Stage 2 10 Grade Stage 2 12 Speed Stage 2 2.5 BH CV STRESS METS STAGE 2 7.5 O2 sat rest 100 % Peak HR 160 bpm Percent Max Pred HR 110.34 % Percent Target HR 130 % Peak BP 190/120 mmHg O2 sat peak 100 % Recovery HR 84 bpm Recovery BP 150/110 mmHg Recovery O2 100 % Exercise duration (min) 5 min Exercise duration (sec) 10 sec Estimated workload 7.0 METS CV STRESS NUCLEAR ISOTOPE DOSE 31.7 mCi Nuc Stress EF 86 % Anatomical Region Laterality Modality Nuclear Medicine Narrative 09/28/2022 6:07 PM EST ?Myocardial perfusion imaging indicates a normal myocardial perfusion study with no evidence of ischemia. ?Left ventricular ejection fraction is hyperdynamic (Calculated EF > 70%). Study Impression Myocardial perfusion imaging indicates a normal myocardial perfusion study with no evidence of ischemia. Impressions are consistent with a low risk study. Rest Perfusion Defect 1 No rest myocardial perfusion defect noted. Stress Perfusion Defect 1 No stress myocardial perfusion defect noted. Nuclear Study Description A 1-day rest/stress protocol myocardial perfusion imaging study was performed. A 20 G peripheral IV was started in the right antecubital fossa. While at rest, the patient was injected intravenously with 9.5 mCi of technetium sestamibi at 08:35 EST. Rest imaging was performed approximately 60 minutes after the resting injection. While at peak stress, the patient was injected intravenously with 31.7 mCi of technetium sestamibi at 10:05 EST. Stress imaging was performed approximately 75 minutes after the injection. The total amount of radiation received in the study is about 12.43 mSv. Rest ECG Baseline ECG of normal sinus rhythm noted at rest. PACs and PVCs noted. Stress ECG Stress ECG rhythm of sinus tachycardia noted. Non-specific ST-T wave changes noted during stress. A horizontal ST segment depression of 1 mm was noted during stress in the V6, V5 and III leads, and returning to baseline after less than 1 minute of recovery. Arrhythmias during stress: rare PACs, occasional PVCs, couplets. Ventricle Size / Description Left ventricular ejection fraction is hyperdynamic (Calculated EF > 70%). Normal LV wall motion noted. Stress Description A stress test was performed following the Kristopher protocol. The patient achieved the target heart rate. The patient requested the test to be stopped. The test was stopped because the clinician observed fatigue. The clinician observed no symptoms during the stress test. The patient reported chest discomfort and [id number] angina during the stress test. Moderate risk for ischemic heart disease. Recovery ECG During recovery, the patient complained of chest discomfort following stress. Sinus rhythm was noted during recovery. Arrhythmias during recovery: occasional PVC's. Test Food Beverage Supervisor ECG [place] Joy Skinner APRN CV STRESS ORDERABLES Final Result documented in this encounter Visit Diagnoses Diagnosis Precordial chest pain Precordial pain History of Takotsubo cardiomyopathy Takotsubo syndrome documented in this encounter Administered Medications Inactive Administered Medications - up to 3 most recent administrations Medication Order MAR Action Action Date Dose Rate Site technetium sestamibi (CARDIOLITE) injection 1 dose 1 dose, Intravenous, Once in Imaging, On Wed09/28/22 at 0836, For 1 dose, Millicuries: 9.5 Given 09/28/2022 8:34 AM EST 1 dose technetium sestamibi (CARDIOLITE) injection 1 dose 1 dose, Intravenous, Once in Imaging, On Wed09/28/22 at 1043, For 1 dose, Millicuries: 31.7 Given 09/28/2022 10:05 AM EST 1 dose documented in this encounter Care Teams Controls Technician Relationship Specialty Start Date End Date Nurys Curtis APRN [address] [place] [address] PCP - General Family Medicine 07/22/22 12/20/22 documented as of this encounter
--- OUTSIDE RECORDS SUMMARY | 2024-10-02 13:09 | XMS_ITS | Encounter Summary ---
[facility] Address [address] [place] [address] Care Team Providers Care Shirt Presser Name Role Phone Franko Juarez MD Primary Care Provider +1- [phone] Reason for Visit * Reason Onset Date Comments Med Refill 12/21/2022 Encounter Details Date Type Department Care Team (Late st Contact Info) Description 12/21/2022 Refill [facility] C[facility] [address] [facility] [address] [place] [phone] Abebe Diego MD [address] [facility] [address] [place] [address] Med Refill Social History Tobacco Use Types [...] Description 12/22/2024 9:50 AM EST Office Visit [facility] & [facility]TS MEDICINE [address] [facility] [address] [place] [address] Go Zazueta MD [address]60 [facility] [address] [place], [place] [phone] 01/15/2025 9:45 AM EDT Office Visit [facility] 1720 [facility] 400 [place] [address] Joy Skinner APRN 1720 [facility] E [facility] 400 [place], [place] [phone] documented as of this encounter Visit Diagnoses Not on filedocumented in this encounter Care Teams Shirt Presser Relationship Specialty Start Date End Date Franko Juarez MD PCP - General Family Medicine 12/21/22 documented as of this encounter
--- OUTSIDE RECORDS SUMMARY | 2024-10-02 13:10 | XMS_ITS | Encounter Summary ---
Author Organization [facility] Address [address] [place] [address] Care Team Providers Care Finishing And Shipping Supervisor Name Role Phone Nurys Curtis APRN Primary Care Provider [phone] Reason for Referral * Diagnostic Imaging (Routine) - Closed Specialty Diagnoses / Procedures Referred By Contac t Referred To Contact Diagnoses Precordial chest pain Takotsubo cardiomyopathy Rapid palpitations Procedures Adult Transthoracic Echo Complete W/ Cont if Necessary Per Protocol Joy Skinner APRN [address] [place] [address] Phone: tel: fax: [place] [address] Phone: tel: Referral ID Status Reason Start Date Expiration Date Visits Re quested Visits Authorized [id number] Closed 09/10/2022 10/10/2022 1 1 * Diagnostic Imaging (Routine) - Closed Specialty Diagnoses / Procedures Referred By Contac t Referred To Contact Diagnoses Precordial chest pain Takotsubo cardiomyopathy Procedures Stress Test With Myocardial Perfusion (1 Day) Joy Skinner APRN [address] [place] [address] Phone: tel: fax: [place] [phone] Phone: tel: Referral ID Status Reason Start Date Expiration Date Visits Re quested Visits Authorized [id number] Closed 09/10/2022 10/10/2022 4 4 Encounter Details Date Type Department Care Team (Late st Contact Info) Description 08/24/2022 11:45 AM EDT Office Visit [facility] [address] [place] [phone] Joy Skinner APRN [address] [facility] [address] [place] [address] Precordial chest pain (Primary Dx); History of Takotsubo cardiomyopathy; Essential hypertension; Rapid palpitations Social History Tobacco Use Types Packs/Day Years [...] Sign Reading Time Taken Comments Blood Pressure 120/70 08/24/2022 11:16 AM EDT Pulse 55 08/24/2022 11:16 AM EDT Temperature - - Respiratory Rate - - Oxygen Saturation 99% 08/24/2022 11:16 AM EDT Inhaled Oxygen Concentration - - Weight 78.3 kg (172 lb 9.6 oz) 08/24/2022 11:16 AM EDT Height 167.6 cm (5' 5.98 ) 08/24/2022 11:16 AM E DT Body Mass Index 27.87 08/24/2022 11:16 AM EDT documented in this encounter Progress Notes * Joy Skinner APRN - 08/24/2022 11:45 AM EDT Subjective: Encounter Date:08/24/2022 Primary Care Physician: Nurys Curtis APRN Patient ID: Rachael Fleming is a 76 y.o. female. Chief Complaint: Thoracic back pain and chest pain PROBLEM LIST: 1. Takotsubo cardiomyopathy, 3 known episodes (1996, 2007, 2015): a. Initial diagnosis??(1996)??with subsequent recovery. b. [facility],??08/1997: Normal EF. Normal coronary arteries. c. Recurrence with diagnosis of Takotsubo syndrome??(2007)??at the [facility]. d. LHC,??06/2008: EF 20%. No significant coronary artery disease.?? e. Echocardiogram,??01/2009: EF??55%. f. C,??10/26/2016:??EF 20%.??Takotsubo/stress-induced cardiomyopathy with severe LV systolic dysfunction.??Near normal coronary arteries. g. Echocardiogram,??10/28/2016: EF 41%.??Findings consistent with stress-induced (Takotsubo) cardiomyopathy.??Mild MR, mild TR.?? h. Echocardiogram, 12/21/2016: EF normalized at 55%. Normal valves. i. Echocardiogram, 06/04/2017: EF 55%. Normal valves. j. Echocardiogram, 09/29/2017: EF 65%. Normal valves. k. 2018, evaluated at [facility] 2. Recurrent palpitations/tachyarrhythmias: a. Normal Holter??(10/2011). b. Event recorder shows atrial tachycardia at 145 bpm, which is symptomatic. c. Recurrent episode??(06/2017). d. Bilateral carotid duplex,??08/30/2017: GEOGRE 0-49%, LICA 0-49%. e. Holter monitor-14 days,??10/22/2017: Essentially normal Holter readings.?No significant arrhythmia.?? f. 30 day event monitor, 12/22/2017: No Afib. No pauses. 1% PVCs. HR range 49- 120 bpm, average 68 bpm. g. 11/2020 Monitor with brief PAT/MAT h. Loop recorder implant 01/2021 3. Hypertension. 4. DONNA: a. Non-compliant with CPAP machine. 5. Peptic ulcer disease. 6. Hiatal hernia. 7. Irritable bowel syndrome 8. Nephrolithiasis. 9. Surgeries. a. Breast lumpectomies extracted and benign. b. Hysterectomy. c. Bilateral cataract extraction with lens implantation. d. Right breast resection. Allergies Allergen Reactions ??? Penicillins Hives ??? [...] Meals., Disp: 180 tablet, Rfl: 3 ??? Cholecalciferol (Vitamin D3) 50 MCG (2000 UT) tablet, Take 1 tablet by mouth Daily., Disp: , Rfl: ??? cyclobenzaprine (FLEXERIL) 5 MG tablet, Take 1 tablet by mouth 3 (Three) Times a Day As Needed for Muscle Spasms., Disp: 15 tablet, Rfl: 0 ??? fluticasone (FLONASE) 50 MCG/ACT nasal spray, , Disp: , Rfl: ??? hydroCHLOROthiazide (MICROZIDE) 12.5 MG capsule, , Disp: , Rfl: ??? isosorbide mononitrate (IMDUR) 30 MG 24 hr tablet, TAKE ONE TABLET BY MOUTH 2 TIMES A DAY, Disp: 180 tablet, Rfl: 1 ??? loratadine (CLARITIN) 10 MG tablet, Take 1 tablet by mouth Daily., Disp: 90 tablet, Rfl: 0 ??? losartan (COZAAR) 50 MG tablet, 25 mg., Disp: , Rfl: ??? nitroglycerin (Nitrostat) 0.4 MG SL tablet, Place 1 tablet under the tongue Every 5 (Five) Minutes As Needed for Chest Pain. Take no more than 3 doses in 15 minutes., Disp: 25 tablet, Rfl: 5 ??? omeprazole (priLOSEC) 40 MG capsule, take 1 capsule by mouth once daily (Patient taking differently: Take 1 capsule by mouth Daily.), Disp: 1 capsule, Rfl: 3 ??? zolpidem (AMBIEN) 5 MG tablet, , Disp: , Rfl: ??? pravastatin (Pravachol) 20 MG tablet, Take 1 tablet by mouth Every Night. Take with Co-enzyme Q10-100 mg daily, Disp: 90 tablet, Rfl: 3 Current Facility-Administered Medications: ??? albuterol (PROVENTIL HFA;VENTOLIN HFA) inhaler 2 puff, 2 puff, Inhalation, Q4H PRN, Kushal Silverman APRN History of Present Illness Patient is a 76-year-old female who we are seeing today for further evaluation of back, chest pain and recurrent palpitations. Also has history of previous Takot subo cardiomyopathy. Patient notes she was in her usual state of health until after being started on statin therapy about a month ago. Since that time she has been having a dull pressure sensation in her thoracic spine. This becomes worse and radiates into her chest whenever she does things such as vacuuming. Patient is also noted some shortness of breath with exertion. She has not had any cardiac testing in quite some time. She initially presented to her primary care physician who referred her to the emergency department. Her work-up there was benign and she was subsequently released in scheduled to follow-up with us in the office. EKG did not show any acute changes. Her back discomfort has been persistent/constant. Over the course of the last 3 to 4 weeks. Continues to have intermittent spells of heart racing. No arrhythmias have been noted on her loop recorder. Patient notes that she has been off of her statin s hillary August 13 and has not noted any significant change in her back discomfort. Notes that she wasprescribed steroids. This is helped her discomfort somewhat. The following portions of the patient's history were reviewed and updated as appropriate: allergies, current medications, past family history, past medical history, past social history, past surgicalhistory and problem list. Social History Tobacco Use ??? Smoking status: Never ??? Smokeless tobacco: Never Vaping Use ??? Vaping Use: Never used Substance Use Topics ??? Alcohol use: No ??? Drug use: No Review of Systems Constitutional: Positive for malaise/fatigue. Cardiovascular: Positive for chest pain and dyspnea on exertion. Negative for leg swelling, palpitations and syncope. Respiratory: Positive for shortness of breath. Hematologic/Lymphatic: Negative for bleeding problem. Does not bruise/bleed easily. Skin: Negative for rash. Musculoskeletal: Positive for arthritis, back pain and myalgias. Negative for muscle weakness. Gastrointestinal: Negative for heartburn, nausea and vomiting. Neurological: Negative for dizziness, light-headedness, loss of balance and numbness. Objective: BP 120/70 (BP Location: Left arm, Patient Position: Sitting) Pulse 55 Ht 167.6 cm (65.98 ) Wt78.3 kg (172 lb 9.6 oz) SpO2 99% BMI 27.87 kg/m?? Vitals reviewed. Constitutional: Appearance: Well-developed and not in distress. Neck: Vascular: No JVD. Trachea: No tracheal deviation. Pulmonary: Effort: Pulmonary effort is normal. Breath sounds: Normal breath sounds. Cardiovascular: Normal rate. Regular rhythm. Pulses: Intact distal pulses. Abdominal: General: Bowel sounds are normal. Palpations: Abdomen is soft. Tenderness: There is no abdominal tenderness. Musculoskeletal: General: No deformity. Skin: General: Skin is warm and dry. Neurological: Mental Status: Alert and oriented to person, place, and time. Procedures Assessment: Assessment & Plan Diagnoses and all orders for this visit: 1. Precordial chest pain (Primary), persistent back pain with some radiation into the chest with exertion. No ischemic evaluation in many years. Recent ER work-up ruled out for IN. Recent ER records reviewed by myself today as well as most recent EKG performed last week. 2. History of Takotsubo cardiomyopathy, no echocardiogram in many years. Some new dyspnea. On carvedilol. 3. Essential hypertension, stable. On HCTZ. 4. Rapid palpitations, loop recorder interrogations have been benign. Plan: 1. Continue current cardiac medications. 2. Discussed with patient at this time overall her symptoms seem musculoskeletal in nature but needto rule out cardiac component given her history. Therefore, will obtain myocardial perfusion study and echocardiogram in the near term. 3. Encouraged patient to retry her statin therapy. If this continues to worsen will consider altering therapy to Crestor. 4. Discussed with patient should her cardiac work-up be negative would have her represent to her primary care for consideration of physical therapy versus MRI. 5. Follow-up in 6 months time or sooner if abnormal testing. Joy Skinner APRN Dictated utilizing [employer] dictation documented in this encounter Plan of Treatment Upcoming Encounters Date Type Department Care Team (Late st Contact Info) Description 12/22/2024 9:50 AM EST Office Visit [facility] [address] [facility] [address] [place] [address] Go Zazueta MD [address] [facility] [address] [place], [place] [id number] 01/15/2025 9:45 AM EDT Office Visit [facility] [address] [facility] [address] [place] [address] Joy Skinner APRN [address] [facility] [address] [place] [address] documented as of this encounter Results * STRESS TEST, EXERCISE [...] (sec) 10 sec Estimated workload 7.0 METS BH CV STRESS NUCLEAR ISOTOPE DOSE 31.7 mCi [...] test. The patient reported chest discomfort and [id number] angina during the stress test. Moderate risk for ischemic heart disease. Recovery ECG During recovery, the patient complained of chest discomfort following stress. Sinus rhythm was noted during recovery. Arrhythmias during recovery: occasional PVC's. Test Cinder Worker ECG Gowen Joy Skinner APRN CV STRESS ORDERABLES Final Result * (ABNORMAL) ECHO COMPLETE W/ DOPPLER AND [...] Takotsubo syndrome Essential hypertension Unspecified essential hypertension Rapid palpitations Palpitations Precordial chest pain Precordial pain History of Takotsubo cardiomyopathy Takotsubo syndrome Rapid palpitations Palpitations Precordial chest pain Precordial pain History of Takotsubo cardiomyopathy Takotsubo syndrome documented in this encounter Care Teams Finishing And Shipping Supervisor Relationship Specialty Start Date End Date Nurys Curtis APRN [address] [place] [address] PCP - General Family Medicine 07/22/22 12/20/22 documented as of this encounter
--- OUTSIDE RECORDS SUMMARY | 2024-10-02 13:10 | XMS_ITS | Encounter Summary ---
Author Organization [facility] Address [address] [place] [address] Care Team Providers Care Credit Specialist Name Role Phone Davis Foote MD Primary Care Provider [phone] Encounter Details Date Type Department Care Team (Late st Contact Info) Description 04/01/2021 10:15 AM EDT Office Visit [facility] [address] [place] [address] Abebe Diego MD [address] [place] [address] History of Takotsubo cardiomyopathy (Primary Dx); Essential hypertension; Rapid palpitations Social History Tobacco Use Types Packs/Day Years Used Date Smoking Tobacco: Never Smokeless Tobacco: Never Alcohol Use Standard Drinks/Week Comments No 0 (1 standard drink = 0.6 oz pur e alcohol) Comments No Sex and Gender Information Value [...] Sign Reading Time Taken Comments Blood Pressure 124/80 04/01/2021 10:09 AM EDT Pulse 68 04/01/2021 10:09 AM EDT Temperature - - Respiratory Rate 16 04/01/2021 10:09 AM EDT Oxygen Saturation 98% 04/01/2021 10:09 AM EDT Inhaled Oxygen Concentration - - Weight 78.9 kg (174 lb) 04/01/2021 10:09 AM EDT Height 167.4 cm (5' 5.9 ) 04/01/2021 10:09 AM ED T Body Mass Index 28.17 04/01/2021 10:09 AM EDT documented in this encounter Progress Notes * Abebe Diego MD - 04/01/2021 10:15 AM EDT Subjective: Encounter Date:04/01/2021 Primary Care Physician: Davis Foote MD Patient ID: Rachael Fleming is a 75 y.o. female. Chief Complaint: follow-up for history of takotsubo CM and palpitations. Loop recorder PROBLEM LIST: 1. Takotsubo cardiomyopathy, 3 known episodes (1996, 2007, 2015): a. Initial diagnosis??(1996)??with subsequent recovery. b. [facility],??08/1997: Normal EF. Normal coronary arteries. c. Recurrence with diagnosis of Takotsubo syndrome??(2007)??at the [facility]. d. LHC,??06/2008: EF 20%. No significant coronary artery disease.?? e. Echocardiogram,??01/2009: EF??55%. f. C,??10/26/2016:??EF 20%.??Takotsubo/stress-induced cardiomyopathy with severe LV systolic dysfunction.??Near normal coronary arteries. g. Echocardiogram,??10/28/2016: EF 41%.??Findings consistent with stress-induced (Takotsubo) cardiomyopathy.??Mild MR, mild TR.?? h. Echocardiogram, 12/21/2016: EF normalized at 55%. Normal valves. i. Echocardiogram, 06/04/2017: EF 55%. Normal valves. j. Echocardiogram, 09/29/2017: EF 65%. Normal valves. k. 2018, evaluated at [facility] 2. Recurrent palpitations/tachyarrhythmias: a. Normal Holter??(10/2011). b. Event recorder shows atrial tachycardia at 145 bpm, which is symptomatic. c. Recurrent episode??(06/2017). d. Bilateral carotid duplex,??08/30/2017: GEORGE 0-49%, LICA 0-49%. e. Holter monitor-14 days,??10/22/2017: [...] [Promethazine Hcl] Hives ??? Statins Myalgia ??? Sudafed [Pseudoephedrine Hcl] Rash ??? Sulfa Antibiotics Rash Current Outpatient Medications: ??? losartan (COZAAR) 100 MG tablet, Take 50 mg by mouth Daily., Disp: , Rfl: ??? albuterol sulfate HFA 108 (90 Base) MCG/ACT inhaler, Inhale 2 puffs Every 4 (Four) Hours As Needed for Wheezing., Disp: , Rfl: ??? ALPRAZolam (XANAX) 0.25 MG tablet, Take 0.25 mg by mouth At Night As Needed for Anxiety (0.5 tablet PRN)., Disp: , Rfl: ??? amLODIPine (NORVASC) 2.5 MG tablet, Take 2.5 mg by mouth Daily., Disp: , Rfl: ??? aspirin 81 MG EC tablet, Take 81 mg by mouth Daily., Disp: , Rfl: ??? carvedilol (COREG) 3.125 MG tablet, Take 1 tablet by mouth 2 (Two) Times a Day With Meals., Disp: 180 tablet, Rfl: 3 ??? fluticasone (FLONASE) 50 MCG/ACT nasal spray, , Disp: , Rfl: ??? hydroCHLOROthiazide (MICROZIDE) 12.5 MG capsule, , Disp: , Rfl: ??? isosorbide mononitrate (IMDUR) 30 MG 24 hr tablet, Take 1 tablet by mouth 2 (Two) Times a Day.,Disp: 180 tablet, Rfl: 3 ??? nitroglycerin (Nitrostat) 0.4 MG SL tablet, Place 1 tablet under the tongue Every 5 (Five) Minutes As Needed for Chest Pain. Take no more than 3 doses in 15 minutes., Disp: 25 tablet, Rfl: 5 ??? omeprazole (priLOSEC) 40 MG capsule, take 1 capsule by mouth once daily (Patient taking differently: Take 40 mg by mouth Daily.), Disp: 1 capsule, Rfl: 3 ??? zolpidem (AMBIEN) 10 MG tablet, Take 5 mg by mouth At Night As Needed for sleep., Disp: , Rfl: Current Facility-Administered Medications: ??? albuterol (PROVENTIL HFA;VENTOLIN HFA) inhaler 2 puff, 2 puff, Inhalation, Q4H PRN, Kushal Silverman APRN History of Present Illness Patient returns today for follow-up status post loop recorder for tachypalpitations. Since her lastvisit she has had no Ruiz's that led to her loop implant. She was hypertensive, and her losartan was increased. At home, she had significant malaise fatigue and dizziness is found over multiple days her blood pressure systolic were less than 90. She decreased her losartan back to 50 mg and feels much better. Her blood pressure log was reviewed, and and they are running in the 1 10-1 20 range systolic at this time. No syncope chest pain orthopnea PND. She is somewhat concerned that her loop recorder may have migrated and pokes her chest wall at times. The following portions of the patient's history were reviewed and updated as appropriate: allergies, current medications, past family history, past medical history, past social history, past surgicalhistory and problem list. Social History Tobacco Use ??? Smoking status: Never Smoker ??? Smokeless tobacco: Never Used Substance Use Topics ??? Alcohol use: No ??? Drug use: No ROS Objective: BP 124/80 Pulse 68 Resp 16 Ht 167.4 cm (65.9 ) Wt 78.9 kg (174 lb) SpO2 98% BMI 28.17 kg/m?? Vitals reviewed. Constitutional: Appearance: Well-developed and not in distress. Neck: Thyroid: No thyromegaly. Vascular: No carotid bruit or JVD. Pulmonary: Breath sounds: Normal breath sounds. Chest: Comments: Loop recorder currently along the left costochondral junction mildly tender. No erythema Cardiovascular: Regular rhythm. No gallop. No S3 and S4 gallop. Abdominal: General: Bowel sounds are normal. Palpations: Abdomen is soft. There is no abdominal mass. Tenderness: There is no abdominal tenderness. Musculoskeletal: General: No deformity. Extremities: No clubbing present.Skin: General: Skin is warm and dry. Findings: No rash. Neurological: Mental Status: Alert and oriented to person, place, and time. Procedures Assessment: Assessment/Plan Diagnoses and all orders for this visit: 1. History of Takotsubo cardiomyopathy (Primary) 2. Essential hypertension 3. Rapid palpitations 1. History of Takotsubo's cardiomyopathy, recurrent. Currently without heart failure and normal LVEF 2. Recurrent tachypalpitations loop recorder in place. 3. Hypertension currently well controlled on lower dose losartan and amlodipine Recommendations: 1. Continue current medical therapy 2. Continue to monitor loop device to catch her next episode of tachypalpitations 3. Further recommendations after the above 4. Revisit annually or as needed symptom change Abebe Diego MD Dictated utilizing [facility] dictation documented in this encounter Plan of Treatment Upcoming Encounters Date Type Department Care Team (Late st Contact Info) Description 12/22/2024 9:50 AM EST Office Visit [facility] [address] [facility] [address] [place] [address] Go Zazueta MD [address] [facility] [address] [place] [address] 01/15/2025 9:45 AM EDT Office Visit [facility] [address] [facility] [address] [place] [phone] Joy Skinner APRN [address] [facility] [address] [place], [place] [phone] documented as of this encounter Visit Diagnoses Diagnosis History of Takotsubo cardiomyopathy- Primary Takotsubo syndrome Essential hypertension Unspecified essential hypertension Rapid palpitations Palpitations documented in this encounter Care Teams Credit Specialist Relationship Specialty Start Date End Date Davis Foote MD [address] [place] [address] PCP - General 09/18/15 07/21/22 documented as of this encounter
--- OUTSIDE RECORDS SUMMARY | 2024-10-02 13:10 | XMS_ITS | Encounter Summary ---
Author Organization [facility] Address [address] [place] [address] Care Team Providers Care Greens Picker Name Role Phone Davis Foote MD Primary Care Provider [phone] Reason for Referral * Diagnostic Imaging (Routine) - Closed Specialty Diagnoses / Procedures Referred By Contac t Referred To Contact Radiology Diagnoses Nontraumatic complete tear of left rotator cuff Impingement syndrome of left shoulder Bursitis of left shoulder Procedures MRI Shoulder Left Without Contrast Ashwin Johnson MD [address] [place] [address] Phone: tel: fax: [address] [address] Phone: tel: Referral ID Status Reason Start Date Expiration Date Visits Re quested Visits Authorized [id number] Closed 03/05/2021 04/04/2021 1 1 * Physical Therapy (Routine) - Closed Specialty Diagnoses / Procedures Referred By Contac t Referred To Contact Physical Therapy Diagnoses Nontraumatic complete tear of left rotator cuff Impingement syndrome of left shoulder Bursitis of left shoulder Ashwin Johnson MD [address] [place] [address] Phone: tel: fax: [place] [address] [place] [address] Phone: tel: fax: Referral ID Status Reason Start Date Expiration Date V isits Requested Visits Authorized [id number] Closed Specialty Services Required 02/13/2021 02/13/2022 1 1 Reason for Visit * Reason Comments Pain * Consultation (Routine) - Closed Specialty Diagnoses / Procedures Referred By Fabrice t Referred To Contact Orthopedic Surgery Diagnoses Left shoulder pain Davis Foote MD [address] [place] [address] Phone: tel: fax: [facility] [address] [place] [address] Phone: tel: fax: Referral ID Status Reason Start Date Expiration Date Visits Re quested Visits Authorized [id number] Closed 02/04/2021 02/04/2022 1 1 Encounter Details Date Type Department Care Team (Late st Contact Info) Description 02/13/2021 10:30 AM EDT Office Visit [facility] [address] [place] [address] Ashwin Johnson MD [address] [place] [address] Nontraumatic complete tear of left rotator cuff (Primary Dx); Impingement syndrome of left shoulder; Bursitis of left shoulder Social History Tobacco Use Types Packs/Day Years [...] Sign Reading Time Taken Comments Blood Pressure 157/79 02/13/2021 10:39 AM EDT Pulse 66 02/13/2021 10:39 AM EDT Temperature - - Respiratory Rate - - Oxygen Saturation - - Inhaled Oxygen Concentration - - Weight 79.3 kg (174 lb 13.2 oz) 021 10:39 AM EDT Height 167.6 cm (5' 5.98 ) 02/13/2021 1 0:39 AM EDT Body Mass Index 28.23 02/13/2021 10:39 AM EDT documented in this encounter Progress Notes * Ashwin Johnson MD - 02/13/2021 10:30 AM EDT Images from the original note were not included. [facility] Orthopaedic Surgery Office Visit - Ashwin Johnson MD Office Visit Patient Name: Rachael Fleming Chief Complaint: Chief Complaint Patient presents with ??? Left Shoulder - Pain Referring Physician: Davis Foote MD-I appreciate the referral from Dr. Foote. History of Present Illness: Rachael Fleming is a 75 y.o. female who presents with left body part: shoulder Reason: pain. Onset:Onset: atraumatic and gradual in nature. The issue has been ongoing for 1 year(s). Pain is a 4/10 onthe pain scale. Pain is described as Pain Characterization: dull, aching, throbbing and shooting. Associated symptoms include Symptoms: pain. The pain is worse with working and leisure; resting and pain medication and/or NSAID improve the pain. Previous treatments have included: NSAIDS. I have reviewed the patient's history of present illness as noted/entered above. I have reviewed the patient's past medical history, surgical history, social history, family history, medications, and allergies as noted in the electronic medical record and as noted/entered. I havereviewed the patient's review of systems as noted/enter and updated as noted in the patient's HPI. PCP: Davis Foote MD LEFT SHOULDER Prior [place] around 2017 -- Cardiology Dr. Diego Loop recorder - racing [facility] Enjoys: swimming, outside, farm, gardening Family within 3 miles, nearby farms Subjective Subjective Review of Systems Constitutional: Positive for fatigue. Negative for chills and fever. HENT: Positive for sinus pressure and sneezing. Negative for congestion and dental problem. Eyes: Positive for itching. Negative for blurred vision. Respiratory: Negative. Negative for shortness of breath. Cardiovascular: Negative. Negative for leg swelling. Gastrointestinal: Negative. Negative for abdominal pain. Endocrine: Negative. Negative for polyuria. Genitourinary: Negative. Negative for difficulty urinating. Musculoskeletal: Positive for arthralgias, back pain, neck pain and neck stiffness. Skin: Negative. Allergic/Immunologic: Positive for environmental allergies. Neurological: Positive for dizziness and light-headedness. Hematological: Negative. Negative for adenopathy. Psychiatric/Behavioral: Negative. Negative for behavioral problems. Past Medical History: Past Medical History: Diagnosis Date ??? Asthma ??? Atrial tachycardia (CMS/HCC) ??? Chest pain 06/04/2017 ??? CHF (congestive heart failure) (CMS/HCC) ??? Coronary artery disease 11/05/2016 ??? Hiatal hernia ??? Hypertension ??? Irritable bowel ??? Myocardial infarction (CMS/HCC) NSTEMI 10/2016, cath without intervention, small vessel disease, medical management ??? Nephrolithiasis ??? DONNA (obstructive sleep apnea) could not tolerate cpap. ??? Palpitations 11/05/2016 Recurrent-tachyarrhythmias Normal Holter, October 2011. Event recorder shows atrial tachycardia at145 beats per minute, which is symptomatic. ??? PUD (peptic ulcer disease) 11/05/2016 ??? Takotsubo cardiomyopathy Initially diagnosed at [facility] 2008. EF 20 at that time. 2009 EF 55% Past Surgical History: Past Surgical History: Procedure Laterality Date ??? BREAST LUMPECTOMY Right 20 years ago- extracted and benign ??? CARDIAC CATHETERIZATION 2002 no stents. ??? CARDIAC CATHETERIZATION N/A 10/26/2016 Procedure: Left Heart Cath; Surgeon: Lisa Hensley MD; Location: [facility]; Service: ??? CARDIAC ELECTROPHYSIOLOGY PROCEDURE N/A 01/31/2021 Procedure: Loop insertion-; Surgeon: Abebe Diego MD; Location: [facility]; Service: Cardiovascular; Laterality: N/A; ??? CATARACT EXTRACTION, BILATERAL ??? HYSTERECTOMY enlarged uterus, bleeding, ~2000 Family History: Family History Problem Relation Age of Onset ??? Heart disease Mother ??? Stroke Mother ??? Heart disease Father ??? Cancer Sister ??? Stroke Maternal Grandmother ??? Heart disease Maternal Grandfather ??? Heart failure Maternal Grandfather ??? Heart failure Paternal Grandmother ??? Heart disease Paternal Grandfather Social History: Social History Socioeconomic History ??? Marital status: Spouse name: Not on file ??? Number of children: 2 ??? Years of education: Not on file ??? Highest education level: Not on file Tobacco Use ??? Smoking status: Never Smoker ??? Smokeless tobacco: Never Used Substance and Sexual Activity ??? Alcohol use: No ??? Drug use: No ??? Sexual activity: Defer Medications: Current Outpatient Medications: ??? albuterol sulfate HFA [...] a Day.,Disp: 180 tablet, Rfl: 3 ??? losartan (COZAAR) 100 MG tablet, , Disp: , Rfl: ??? [...] puff, Inhalation, Q4H PRN, Kushal Silverman APRN Allergies: Allergies Allergen Reactions ??? Penicillins Hives ??? Phenergan [Promethazine Hcl] Hives ??? Statins Myalgia ??? Sudafed [Pseudoephedrine Hcl] Rash ??? Sulfa Antibiotics Rash The following portions of the patient's history were reviewed and updated as appropriate: allergies, current medications, past family history, past medical history, past social history, past surgicalhistory and problem list. Objective Objective Vital Signs: Vitals: 02/13/21 1039 BP: 157/79 Pulse: 66 Weight: 79.3 kg (174 lb 13.2 oz) Height: 167.6 cm (65.98 ) Ortho Exam: General: no acute distress, comfortable Vitals reviewed in chart Head: normocephalic, atraumatic Ears: no external drainage noted Eyes: extraocular muscles appear intact with good tracking Psych: alert and oriented, normal appearing mood Vascular: 2+ pulses symmetric, well perfused Neurologic: Sensation to light touch intact distally Dermatologic: skin not hot/red/swollen Respiratory: breathing comfortably on room air, no intercostal retractions Cardiovascular: regular rate and rhythm, well perfused Musculoskeletal Exam SIDE: Left shoulder Shoulder Exam: Tenderness: rotator cuff-pain and weakness consistent with rotator cuff tearing Range of motion measurements (degrees) Forward flexion/Abduction/External rotation at side/ER at 90/IR at 90/IR position Active: 130/130/45/80/70 Passive: 150/150/45/80/70 Painful arc of motion: yes No evidence of septic joint Pain with forward flexion and abduction greater: 90 degrees Impingement testing Neer's test - positive/painful Impingement testing Hawkin's test - positive/painful Rotator Cuff Testing: Tenderness to palpation at rotator cuff - YES Rotator cuff testing Jessica's test - positive, significant pain with descent Rotator cuff testing External rotation - no Rotator cuff testing Lag signs - no Rotator cuff testing Belly press - no Pain with abduction great than 90 degrees - yes Scapular dyskinesis - present, abnormal scapular motion Long head of the biceps testing: Duran's test for biceps & Speed's test -mild Bicipital groove tenderness to palpation/tenderness to palpation of biceps tendon -mild Results Review: Imaging Results (Last 24 Hours) No results found for the last 24 hours. I reviewed her images from [facility] 01/24/2021 left shoulder 3 views show mild AC joint degenerative changes mild humeral osteophyte otherwise well-appearing Procedures Assessment / Plan Assessment/Plan: Problem List Items Addressed This Visit Musculoskeletal and Injuries Nontraumatic complete tear of left rotator cuff - Primary Relevant Orders Ambulatory Referral to Physical Therapy Evaluate and treat, Ortho (Completed) MRI Shoulder Left Without Contrast Impingement syndrome of left shoulder Relevant Orders Ambulatory Referral to Physical Therapy Evaluate and treat, Ortho (Completed) MRI Shoulder Left Without Contrast Bursitis of left shoulder Relevant Orders Ambulatory Referral to Physical Therapy Evaluate and treat, Ortho (Completed) MRI Shoulder Left Without Contrast Left shoulder rotator cuff tearing based on clinical exam. MRI indicated for formal evaluation of the status of the rotator cuff tear. We will also initiate physical therapy and additional conservative measures in case she desires to avoid surgery. We counseled on operative versus nonoperative measures. We counseled on her ongoing cardiac work-up as well. MRI of the shoulder is recommended. Indication: Left rotator cuff tear The MRI is critical to evaluate for rotator cuff tearing and will help with possible surgical planning. Follow Up: After left shoulder MRI Ashwin Johnson MD, FAAOS Orthopedic Surgeon Fellowship Trained Shoulder and Elbow Surgeon [facility] [address] [place] [address], [address] [place] [address] 02/13/21 11:23 EDT Please note that portions of this note may have been completed with a voice recognition program. Efforts were made to edit the dictations, but occasionally words are mistranscribed. documented in this encounter Plan of Treatment Upcoming Encounters Date Type Department Care Team (Late st Contact Info) Description 12/22/2024 9:50 AM EST Office Visit [facility] [address] [place] [address] Go Zazueta MD [address] [facility] [address] [place], [place] [id number] 01/15/2025 9:45 AM EDT Office Visit [facility] [address] [place] [address] Joy Skinner APRN [address] [place] [address] documented as of this encounter Results * MRI Shoulder Left Without Contrast (03/11/2021 9:56 AM EDT) Anatomical Region Laterality Modality Upper Extremities, Shoulder Magn etic Resonance 03/11/2021 11:0 4 AM EDT Impressions 03/15/2021 9:36 AM EDT 1. Moderate AC joint arthropathy and small subdeltoid bursal effusion. 2. Mild focal irregularity of the distal infraspinatus insertion, whether focal tendinopathy or perhaps more likely small partial-thickness tear. No evidence of rotator cuff tear elsewhere. 3. Mildly irregular appearance of the posterior superior labrum, possibly volume averaging effect or minor degenerative change. No actual labral tear is appreciated here or elsewhere. D: ??03/11/2021 E: ??03/11/2021 This report was finalized on 03/15/2021 9:[address] Salomon Camacho MD. Narrative 03/15/2021 9:36 AM EDT EXAMINATION: MRI SHOULDER LEFT WO CONTRAST- 03/11/2021 INDICATION: Shoulder pain, rotator cuff tear/impingement suspected; M75.122-Complete rotator cuff tear or rupture of left shoulder, not specified as traumatic; M75.42-Impingement syndrome of left shoulder; M75.52-Bursitis of left shoulder TECHNIQUE: Axial proton density, sagittal T1 STIR, coronal T1 and T2 fat-sat images of the left shoulder. COMPARISON: Left shoulder plain films 01/24/2021 FINDINGS: Patient history indicates gradual onset left shoulder pain for approximately one year, dull aching, throbbing and shooting pain. Rotator cuff weakness and tenderness on exam. Coronal images show moderate AC joint arthropathy and a trace amount of subdeltoid bursal effusion. The supraspinatus, subscapularis, and teres minor tendons show normal dark signal and are normal in appearance along their length. There is mildly increased T2 signal at the insertion of the infraspinatus, sagittal STIR images 16 through 18 series 6, and corresponding coronal T2-weighted images 12 and 13 series 4, perhaps a very small partial-thickness tear, although no well-defined tear is seen here. There is no evidence of rotator cuff muscle atrophy or edema. Long head biceps tendon, biceps anchor and superior labrum appear to be intact. Anterior and inferior portions of the labrum appear intact. Posterior labrum appears grossly intact, mildly atrophic along its superior margin, but no well-defined tear is appreciated. Procedure Note Salomon Camacho MD - 03/15/2021 EXAMINATION: MRI SHOULDER LEFT WO CONTRAST- 03/11/2021 INDICATION: Shoulder pain, rotator cuff tear/impingement suspected; M75.122-Complete rotator cuff tear or rupture of left shoulder, not specified as traumatic; M75.42-Impingement syndrome of left shoulder; M75.52-Bursitis of left shoulder TECHNIQUE: Axial proton density, sagittal T1 STIR, coronal T1 and T2 fat-sat images of the left shoulder. COMPARISON: Left shoulder plain films 01/24/2021 FINDINGS: Patient history indicates gradual onset left shoulder pain for approximately one year, dull aching, throbbing and shooting pain. Rotator cuff weakness and tenderness on exam. Coronal images show moderate AC joint arthropathy and a trace amount of subdeltoid bursal effusion. The supraspinatus, subscapularis, and teres minor tendons show normal dark signal and are normal in appearance along their length. There is mildly increased T2 signal at the insertion of the infraspinatus, sagittal STIR images 16 through 18 series 6, and corresponding coronal T2-weighted images 12 and 13 series 4, perhaps a very small partial-thickness tear, although no well-defined tear is seen here. There is no evidence of rotator cuff muscle atrophy or edema. Long head biceps tendon, biceps anchor and superior labrum appear to be intact. Anterior and inferior portions of the labrum appear intact. Posterior labrum appears grossly intact, mildly atrophic along its superior margin, but no well-defined tear is appreciated. IMPRESSION: 1. Moderate AC joint arthropathy and small subdeltoid bursal effusion. 2. Mild focal irregularity of the distal infraspinatus insertion, whether focal tendinopathy or perhaps more likely small partial-thickness tear. No evidence of rotator cuff tear elsewhere. 3. Mildly irregular appearance of the posterior superior labrum, possibly volume averaging effect or minor degenerative change. No actual labral tear is appreciated here or elsewhere. E: 03/11/2021 This report was finalized on 03/15/2021 9:[address] Salomon Camacho MD. Ashwin Johnson MD IMG MRI ORDERABLES Final Result documented in this encounter Visit Diagnoses Diagnosis Nontraumatic complete tear of left rotator cuff- Primary Impingement syndrome of left shoulder Bursitis of left shoulder Nontraumatic complete tear of left rotator cuff Impingement syndrome of left shoulder Bursitis of left shoulder documented in this encounter Care Teams Greens Picker Relationship Specialty Start Date End Date Davis Foote MD [address] [place] [address] PCP - General 09/18/15 07/21/22 documented as of this encounter
--- OUTSIDE RECORDS SUMMARY | 2024-10-02 13:10 | XMS_ITS | Encounter Summary ---
[facility] Organization [facility] Address [address] [place] [address] Care Team Providers Care Wind Turbine Mechanic Name Role Phone Nurys Curtis [employer] Primary Care Provider Reason for Visit * Reason Comments Fatigue Back Pain Encounter Details Date Type Department Care Team (Late st Contact Info) Description 08/19/2022 4:00 PM EDT Office Visit [facility] [address] [place] [phone] Nurys Curtis APRN [address] [place], [place] [id number] Acute midline thoracic back pain (Primary Dx); Shortness of breath Social History Tobacco Use Types Packs/Day Years [...] Sign Reading Time Taken Comments Blood Pressure 140/80 08/19/2022 3:50 PM EDT Pulse 64 08/19/2022 3:50 PM EDT Temperature 36.5 ??C (97.7 ??F) 08/19/2022 3:50 PM ED T Respiratory Rate 12 08/19/2022 3:50 PM EDT Oxygen Saturation 99% 08/19/2022 3:50 PM EDT Inhaled Oxygen Concentration - - Weight 77.5 kg (170 lb 12.8 oz) 08/19/2022 3:50 PM EDT Height 167.6 cm (5' 6 ) 08/19/2022 3:50 PM EDT Body Mass Index 27.57 08/19/2022 3:50 PM EDT documented in this encounter Progress Notes * Nurys Curtis APRN - 08/20/2022 1:15 PM EDTAssociated Problem(s): Shortness of breath Intermittent in nature, she feels like these episodes are anxiety driven. No cough or wheeze. Adequate oxygen saturation on assessment. * Nurys Curtis APRN - 08/20/2022 1:09 PM EDTAssociated Problem(s): Acute midline thoracic back pain Patient with strong cardiac history presents with [...] advised to seek further evaluation in ED * Nurys Curtis, [employer] MAKER - 08/19/2022 4:00 PM EDTAssociated Order(s): ECG 12 Lead Post-Procedure Diagnose(s): Shortness of breath Images from the original note were not included. Office Note Name: Rachael Fleming : 1945 Chief Complaint Fatigue and Back Pain Subjective History of Present Illness: Rachael Fleming is a 76 y.o. female who presents today with complaints of upper back pain, described as pressure and intermittent episodes of shortness of breath. Ms. Fleming reports these issues started approximately six days ago. She describes her back pain to be midline, between her shoulder blades, she describes the pain as pressure . She goes on to say she is also having episodes of shortness of breath at rest but feels that part may be anxiety related. She reports her loop recorder has alerted her twice during this time as well, when she called, she was told it was a sinus tachycardia and no reason for concern. She called Dr. Jacobs's office this morning when she was told they could not get her in today and to seek care at her PCP office. Review of Systems Cardiovascular: Positive for palpitations. Negative for chest pain and leg swelling. Gastrointestinal: Negative for abdominal pain, diarrhea, nausea, vomiting and GERD. Musculoskeletal: Positive for back pain. Negative for myalgias. Psychiatric/Behavioral: The patient is nervous/anxious. Objective Past Medical History: Diagnosis Date ??? Acute hemorrhagic cystitis hospitalized at [facility], 06/21/2015 ??? Asthma ??? Atrial tachycardia (HCC) ??? Chest pain 06/04/2017 ??? CHF (congestive heart failure) (HCC) ??? Coronary artery disease 11/05/2016 ??? GERD (gastroesophageal reflux disease) ??? Heart murmur ??? Hiatal hernia ??? Hyperlipidemia ??? Hypertension ??? IBS (irritable bowel syndrome) ??? Irritable bowel ??? Myocardial infarction (HCC) NSTEMI 10/2016, cath without intervention, small vessel disease, medical management ??? Nephrolithiasis ??? DONNA (obstructive sleep apnea) could not tolerate cpap. ??? Palpitations 11/05/2016 Recurrent-tachyarrhythmias Normal Holter, October 2011. Event recorder shows atrial tachycardia at145 beats per minute, which is symptomatic. ??? Peptic ulcer disease ??? PUD (peptic ulcer disease) 11/05/2016 ??? Takotsubo cardiomyopathy Initially diagnosed at [facility] 2008. EF 20 at that time. 2009 EF 55% Past Surgical History: Procedure Laterality Date ??? [...] Laterality: N/A; ??? CATARACT EXTRACTION, BILATERAL ??? COLONOSCOPY recommendation for five-year followup in 2018 ??? HYSTERECTOMY enlarged uterus, bleeding, ~2000 Family History Problem Relation Age of Onset ??? Heart disease Mother ??? Stroke Mother ??? Heart disease Father ??? Heart attack Father ??? Cancer Sister ??? Stroke Maternal Grandmother ??? Heart disease Maternal Grandfather ??? Heart failure Maternal Grandfather ??? Heart failure Paternal Grandmother ??? Heart attack Paternal Grandmother ??? Heart disease Paternal Grandfather ??? Heart attack Paternal Grandfather Vital Signs BP 140/80 (BP Location: Right arm, Patient Position: Sitting, Cuff Size: Adult) Pulse 64 Temp 97.7 ??F (36.5 ??C) (Temporal) Resp 12 Ht 167.6 cm (66 ) Wt 77.5 kg (170 lb 12.8 oz) SpO2 99% BMI 27.57 kg/m?? Estimated body mass index is 27.57 kg/m?? as calculated from the following: Height as of this encounter: 167.6 cm (66 ). Weight as of this encounter: 77.5 kg (170 lb 12.8 oz). Physical Exam Vitals reviewed. Constitutional: Appearance: Normal appearance. HENT: Head: Normocephalic. Mouth/Throat: Mouth: Mucous membranes are moist. Pharynx: Oropharynx is clear. Eyes: Conjunctiva/sclera: Conjunctivae normal. Cardiovascular: Rate and Rhythm: Normal rate and regular rhythm. Pulses: Normal pulses. Heart sounds: Normal heart sounds. Pulmonary: Effort: Pulmonary effort is normal. No respiratory distress. Breath sounds: Normal breath sounds. No wheezing. Chest: Chest wall: No tenderness. Musculoskeletal: Cervical back: Normal range of motion and neck supple. Right lower leg: No edema. Left lower leg: No edema. Skin: General: Skin is warm and dry. Neurological: General: No focal deficit present. Mental Status: She is alert and oriented to person, place, and time. Psychiatric: Mood and Affect: Mood normal. Behavior: Behavior normal. Thought Content: Thought content normal. Judgment: Judgment normal. POCT Results (if applicable): Results for orders placed or performed in visit on 07/22/22 Urine culture, Comprehensive - , Urine Result Value Ref Range Urine Culture Final report (A) Result 1 Klebsiella pneumoniae (A) Susceptibility Testing Comment Lipid Panel Specimen: Arm, Right; Blood Blood Release to sangeetha Result Value Ref Range Total Cholesterol 230 (H) 100 - 199 mg/dL Triglycerides 177 (H) 0 - 149 mg/dL HDL Cholesterol 54 >39 mg/dL VLDL Cholesterol Harsh 32 5 - 40 mg/dL LDL Chol Calc (NIH) 144 (H) 0 - 99 mg/dL Hepatitis C Antibody Specimen: Arm, Right; Blood Blood Release to sangeetha Result Value Ref Range Hep C Virus Ab <0.1 0.0 - 0.9 s/co ratio Hemoglobin A1c Specimen: Arm, Right; Blood Blood Release to sangeetha Result Value Ref Range Hemoglobin A1C 5.9 (H) 4.8 - 5.6 % Urinalysis With Culture If Indicated - Urine, Clean Catch Specimen: Urine, Clean Catch Urine Result Value Ref Range Specific Sweeny, UA 1.011 1.005 - 1.030 pH, UA 6.0 5.0 - 7.5 Color, UA Yellow Yellow Appearance, UA Clear Clear Leukocytes, UA 1+ (A) Negative Protein Negative Negative/Trace Glucose, UA Negative Negative Ketones Negative Negative Blood, UA Negative Negative Bilirubin, UA Negative Negative Urobilinogen, UA 0.2 0.2 - 1.0 mg/dL Nitrite, UA Negative Negative Microscopic Examination See below: Urinalysis Reflex Comment MicroAlbumin, Urine, Random - Urine, Clean Catch Specimen: Urine, Clean Catch Urine Result Value Ref Range Microalbumin, Urine 3.7 Not Estab. ug/mL proBNP Specimen: Arm, Right; Blood Blood Release to sangeetha Result Value Ref Range proBNP 83 0 - 301 pg/mL Comprehensive Metabolic Panel Specimen: Arm, Right; Blood Blood Release to sangeetha Result Value Ref Range Glucose 116 (H) 65 - 99 mg/dL BUN 13 8 - 27 mg/dL Creatinine 0.76 0.57 - 1.00 mg/dL EGFR Result 82 >59 mL/min/1.73 BUN/Creatinine Ratio 17 12 - 28 Sodium 138 134 - 144 mmol/L Potassium 4.0 3.5 - 5.2 mmol/L Chloride 98 96 - 106 mmol/L Total CO2 25 20 - 29 mmol/L Calcium 10.0 8.7 - 10.3 mg/dL Total Protein 7.3 6.0 - 8.5 g/dL Albumin 4.9 (H) 3.7 - 4.7 g/dL Globulin 2.4 1.5 - 4.5 g/dL A/G Ratio 2.0 1.2 - 2.2 Total Bilirubin 0.6 0.0 - 1.2 mg/dL Alkaline Phosphatase 87 44 - 121 IU/L AST (SGOT) 18 0 - 40 IU/L ALT (SGPT) 17 0 - 32 IU/L Microscopic Examination - Urine Result Value Ref Range WBC, UA 0-5 0 - 5 /hpf RBC, UA None seen 0 - 2 /hpf Epithelial Cells (non renal) 0-10 0 - 10 /hpf Casts None seen None seen /lpf Bacteria, UA None seen None seen/Few ECG 12 Lead Date/Time: 08/19/2022 3:39 PM Performed by: Nurys Curtis APRN Authorized by: Nurys Curtis APRN Comparison: compared with previous ECG from 12/15/2021 Similar to previous ECG Rhythm: sinus rhythm Rate: normal Conduction: conduction normal ST Segments: ST segments normal T Waves: T waves normal QRS axis: normal Other: no other findings Clinical impression: normal ECG Assessment and Plan Diagnoses and all orders for this visit: 1. Acute midline thoracic back pain (Primary) Assessment & Plan: Patient with strong cardiac history presents with [...] advised to seek further evaluation in ED 2. Shortness of breath Assessment & Plan: Intermittent in nature, she feels like these episodes are anxiety driven. No cough or wheeze. Adequate oxygen saturation on assessment. Other orders - ECG 12 Lead Follow Up No follow-ups on file. Nurys Curtis APRN documented in this encounter Plan of Treatment Upcoming Encounters Date Type Department Care Team (Late st Contact Info) Description 12/22/2024 9:50 AM EST Office Visit [facility] [address] [facility] [address] [place] [address] Go Zazueta MD [address] [facility] [address] [place], [place] [id number] 01/15/2025 9:45 AM EDT Office Visit [facility] [address] [facility] [address] [place] [phone] Joy Skinner APRN [address] [facility] [address] [place] [address] documented as of this encounter Procedures Procedure Name Priority Date/Time Associated Diagnosis Comments ECG 12-LEAD Routine 08/19/2022 3:39 PM EDT Shortness of breath documented in this encounter Results * ECG 12-LEAD (08/19/2022 3:39 PM EDT) Narrative Nurys Curtis APRN - 08/19/2022 3:39 PM EDT Nurys Curtis APRN ? 08/20/2022 ??1:25 PM ECG 12 Lead Date/Time: 08/19/2022 3:39 PM Performed by: Nurys Curtis APRN Authorized by: Nurys Curtis APRN Comparison: compared with previous ECG from 12/15/2021 Similar to previous ECG Rhythm: sinus rhythm Rate: normal Conduction: conduction normal ST Segments: ST segments normal T Waves: T waves normal QRS axis: normal Other: no other findings Clinical impression: normal ECG Nurys Curtis APRN ECG ORDERABLES Final Resul t documented in this encounter Visit Diagnoses Diagnosis Acute midline thoracic back pain- Primary Shortness of breath documented in this encounter Care Teams Wind Turbine Mechanic Relationship Specialty Start Date End Date Nurys Curtis APRN [address] [place] [id number] PCP - General Family Medicine 07/22/22 12/20/22 documented as of this encounter
--- OUTSIDE RECORDS SUMMARY | 2024-10-02 13:10 | XMS_ITS | Encounter Summary ---
[facility] Organization [facility] Address [address] [place] [address] Care Team Providers Care Director Of Retail Analytics Name Role Phone Davis Foote MD Primary Care Provider [phone] Encounter Details Date Type Department Care Team (Late st Contact Info) Description 02/06/2021 Telephone [facility] CARDIOLOG[facility] [address] [place] [address] Abebe Diego MD [address] [facility] [address] [place] [address] Social History Tobacco Use Types Packs/Day Years [...] Telephone Encounter - Grisel Irwin RN - 02/06/2021 12:03 PM EDT Patient in to office for wound check s/p loop recorder. Dressing removed, scant drainage. Med changes were made per her PCP, Amlodipine 2.5 mg was added, carvedilol was decrease from 3.125 TID to 3.125 BID, losartan was increased from 50 mg to 100 mg. She reports med list as follows: Omeprazole 40 MG QD Amlodipine 2.5 mG QD Losartan 100 MG QD HCTZ 12.5 MG QD Isosorbide 30 MG BID Carvedilol 3.125 MG BID Aspirin 81 mg QD Vitamin D3 50 mg QD Patient has questions regarding her BP's. She states her losartan was increased from 50 to 100, then her BP became too low. Gifford fatigued. She reports since the increase her BP's are as follows: 02/02 110/76 HR 77 116/70 HR 70 122/79 HR 59 02/03: 117/75 HR 66 107/70 HR 67 93/58 HR 76 131/75 HR 75 02/04: 115/78 HR 77 91/65 HR 69 116/72 HR 68 Advised to keep watch on BP's, only a couple of low readings, but overall acceptable. Understandingand agreement verbalized. documented in this encounter Plan of Treatment Upcoming Encounters Date Type Department Care Team (Late st Contact Info) Description 12/22/2024 9:50 AM EST Office Visit [facility] MED[facility] [address] [facility] [address] [place] [address] Go Zazueta MD [address] [facility] [address] [place], [place] [id number] 01/15/2025 9:45 AM EDT Office Visit [facility] [address] [facility] [address] [place] [address] Joy Skinner APRN [address] [facility] [address] [place], [place] [id number] documented as of this encounter Visit Diagnoses Not on filedocumented in this encounter Care Teams Director Of Retail Analytics Relationship Specialty Start Date End Date Davis Foote MD [address] [place] [address] [place] [address] PCP - General 09/18/15 07/21/22 documented as of this encounter
--- OUTSIDE RECORDS SUMMARY | 2024-10-02 13:10 | XMS_ITS | Encounter Summary ---
[facility] Address [address] [place] [id number] Care Team Providers Care Software Validation Engineer Name Role Phone Davis Foote MD Primary Care Provider [phone] Encounter Details Date Type Department Care Team (Late st Contact Info) Description 12/23/2021 Telephone [facility] CARDIOLOG[facility] [address] [place] [address] Abebe Diego MD [address] [facility] [address] [place] [address] Social History Tobacco Use Types Packs/Day Years [...] encounter Miscellaneous Notes * Telephone Encounter - Abebe Diego MD - 12/23/2021 4:09 PM EST Claiming her heart rate is 140s, there are no documented heart rates more than 115. This is sinus tachycardia. The tachycardia is not the cause of your symptoms * Telephone Encounter - Brook Kim RN - 12/23/2021 1:19 PM EST Pt initiated two manual transmissions from her [facility] Loop recorder home monitor last evening, 12/22/2021. These were for symptoms of heart racing & light headedness. Episodes are consistent w/sinus tachycardia, rates 110-120 bpm. No SVT, Afib, VT/VF arrhythmias noted on this transmission or since implant on 01/31/2021. The report is in [facility] for physician review. I called patient and explained the above information to her, and that her heart rhythm was normal with only slightly elevated heart rates. Pt verbalized understanding. Pt???s last office note on 12/15/[address] Diego, along with the [facility] remote Loop monitor transmissions dated 10/17/2021 & 10/29/2021, were faxed to Dr. Davis Foote? s office @ [phone]. Below are the V-rates from the last two monitoring periods of pt???s [facility] loop recorder: * Telephone Encounter - Grisel Irwin RN - 12/23/2021 10:05 AM EST PCP called to report patient has had 3 significant episodes of tachy arrhythmias. One on 10/24/21, one on Oct 17, 2021 at 11:45 pm and the last one last night at 8:40-8:55 pm. She became pale, light headedness, syncopal. Sudden onset, slow recovery. Documented HR at 142, perhaps faster. He would like Dr. Diego to review findings and let he or patient know findings. documented in this encounter Plan of Treatment Upcoming Encounters Date Type Department Care Team (Late st Contact Info) Description 12/22/2024 9:50 AM EST Office Visit [facility] MEDICINE [address] [address] Go Zazueta MD [address] [facility] [address] [place], [place] [id number] 01/15/2025 9:45 AM EDT Office Visit [facility] C[facility] [address] [place] [address] Joy Skinner APRN [address] [place], [place] [id number] documented as of this encounter Visit Diagnoses Not on filedocumented in this encounter Care Teams Software Validation Engineer Relationship Specialty Start Date End Date Davis Foote MD [address] [place] [address] [place] [address] PCP - General 09/18/15 07/21/22 documented as of this encounter
--- OUTSIDE RECORDS SUMMARY | 2024-10-02 13:10 | XMS_ITS | Encounter Summary ---
Author Organization [facility] Address [address] [place] [address] Care Team Providers Care Lending Consultant Name Role Phone Davis Foote MD Primary Care Provider Reason for Referral * Diagnostic Imaging (Routine) - Closed Specialty Diagnoses / Procedures Referred By Contac t Referred To Contact Radiology Diagnoses Nontraumatic complete tear of left rotator cuff Impingement syndrome of left shoulder Bursitis of left shoulder Procedures MRI Shoulder Left Without Contrast Ashwin Johnson MD [address] [place] [address] Phone: tel: fax: [address] [address] Phone: tel: Referral ID Status Reason Start Date Expiration Date Visits Re quested Visits Authorized [id number] Closed 03/05/2021 04/04/2021 1 1 Reason for Visit * Diagnostic Imaging (Routine) - Closed Specialty Diagnoses / Procedures Referred By Contac Referred To Contact Radiology Diagnoses Nontraumatic complete tear of left rotator cuff Impingement syndrome of left shoulder Bursitis of left shoulder Procedures MRI Shoulder Left Without Contrast Ashwin Johnson MD [address] [place] [address] Phone: tel: fax: [address] [address] Phone: tel: Referral ID Status Reason Start Date Expiration Date Visits Re quested Visits Authorized [id number] Closed 03/05/2021 04/04/2021 1 1 Encounter Details Date Type Department Care Team (Late st Contact Info) Description 03/11/2021 9:31 AM EDT - 03/11/2021 11:59 PM EDT Hospital Encounter [facility] MRI AT [facility] [address] [place] [address] Ashwin Johnson MD [address] [facility] [address] [place] [address] Nontraumatic complete tear of left rotator cuff; Impingement syndrome of left shoulder; Bursitis of left shoulder Discharge Disposition: Home or Self Care Social [...] 4 (Four) Hours As Needed for Wheezing. aspirin 81 MG EC tablet Take 1 tablet by mouth Daily. fluticasone (FLONASE) 50 MCG/ACT nasal spray 01/23/2021 nitroglycerin (Nitrostat) 0.[address] 1 tablet under the tongue Every 5 (Five) Minutes As Needed for Chest Pain. Take no more than 3 doses in 15 minutes. 25 tablet 5 01/16/2020 ALPRAZolam (XANAX) 0.25 MG tablet Take 0.25 mg by mouth At Night As Needed for Anxiety (0.5 tablet PRN). 2 amLODIPine (NORVASC) 2.5 MG tablet Take 2.5 mg by mouth Daily. 2 carvedilol (COREG) 3.125 MG tabletIndications:Ta kotsubo cardiomyopathy Take 1 tablet by mouth 2 (Two) Times a Day With Meals. 180 tablet 3 01/16/2020 3 hydroCHLOROthiazide (MICROZIDE) 12.5 MG capsule 01/02/2021 2 isosorbide mononitrate (IMDUR) 30 MG 24 hr tablet Take 1 tablet by mouth 2 (Two) Times a Day. 180 tablet 3 01/16/2020 1 losartan (COZAAR) 100 MG tablet Take 50 mg by mouth Daily. 01/23/2021 1 omeprazole (priLOSEC) 40 MG capsule take 1 capsule by mouth once daily 1 capsule 3 07/18/2019 3 zolpidem (AMBIEN) 10 MG tablet Take 5 mg by mouth At Night As Needed for sleep. 1 documented as of this encounter Plan of Treatment Upcoming Encounters Date Type Department Care Team (Late st Contact Info) Description 12/22/2024 9:50 AM EST Office Visit [facility] [address] [facility] [address] [place] [address] Go Zazueta MD [address] [facility] [address] [place] [address] 01/15/2025 9:45 AM EDT Office Visit [facility] [address] [facility] [address] [place] [phone] Joy Skinner APRN [address] [facility] [address] [place] [address] documented as of this encounter Procedures Procedure Name Priority Date/Time Associated Diagnosis Comments MRI SHOULDER LEFT WO CONTRAST Routine 03/11/2021 9:56 AM EDT Nontraumatic complete tear of left rotator cuff Impingement syndrome of left shoulder Bursitis of left shoulder documented in this encounter Results * MRI Shoulder Left [...] 9:[address] Salomon Camacho MD. us Ashwin Jet Alex MD IMG MRI ORDERABLES Final Result documented in this encounter Visit Diagnoses Diagnosis Nontraumatic complete tear of left rotator cuff Impingement syndrome of left shoulder Bursitis of left shoulder documented in this encounter Care Teams Lending Consultant Relationship Specialty Start Date End Date Davis Foote MD [address] [place] [address] PCP - General 09/18/15 07/21/22 documented as of this encounter
--- OUTSIDE RECORDS SUMMARY | 2024-10-02 13:10 | XMS_ITS | Encounter Summary ---
Author Organization [facility] Address [address] [place] [id number] Care Team Providers Care Landscape Crew Member Name Role Phone Ever Nurysphilipp Florez APRN Primary Care Provider [phone] Encounter Details Date Type Department Care Team (Late st Contact Info) Description 07/28/2022 Telephone [facility] [address] [place] [address] [place] [address] Zach Foote MD [address] [place], [place] [id number] Social History Tobacco Use Types Packs/Day Years Used Date Smoking Tobacco: Never Smokeless Tobacco: Never Alcohol Use Standard Drinks/Week Comments No 0 (1 standard drink = 0.6 oz pur e alcohol) PHQ-2 Answer Date Recorded Retired PHQ-9: Brief Depression Severity Measure Score 0 07/22/2022 Comments No Sex and Gender Information Value Date Recorded Sex Assigned at Not on file Legal Sex Female 10:27 AM EDT Gender Identity Not on file Sexual Orientation Not on file Occupation Industry Job Start Date Job End Date Retired Not on file Not on file Not on file documented as of this encounter Miscellaneous Notes * Telephone Encounter - Monique Sebastian - 07/28/2022 1:26 PM EDT She has returned Dr. Dobbs call. I have let her know that he will call her back at his latest convience. TF documented in this encounter Plan of Treatment Upcoming Encounters Date Type Department Care Team (Late st Contact Info) Description 12/22/2024 9:50 AM EST Office Visit [facility] MED[facility] [address] [facility] [address] [place] [address] Go Zazueta MD [address] [facility] [address] [place], [place] [phone] 01/15/2025 9:45 AM EDT Office Visit [facility] CARDIOLOG[facility] [address] [facility] [address] [place] [address] Joy Skinner APRN [address] [facility] 400 [place], [place] [id number] documented as of this encounter Visit Diagnoses Not on filedocumented in this encounter Care Teams Landscape Crew Member Relationship Specialty Start Date End Date Nurys Curtis, TECHNOLOGIST INFECTIOUS DISEASE [address] [place] [address] PCP - General Family Medicine 07/22/22 12/20/22 documented as of this encounter
--- OUTSIDE RECORDS SUMMARY | 2024-10-02 13:10 | XMS_ITS | Encounter Summary ---
Author Organization [facility] Address [address] [place] [id number] Care Team Providers Care Metal Reed Tuner Name Role Phone Davis Foote MD Primary Care Provider [phone] Encounter Details Date Type Department Care Team (Late st Contact Info) Description 01/31/2021 Telephone [facility] CARDIOLOGY [address] [place] [address] Abebe Diego MD [address] [facility] [address] [place] [address] Social History Tobacco Use Types Packs/Day Years [...] Telephone Encounter - Grisel Irwin RN - 01/31/2021 1:34 PM EDT Patient called to report her PCP refuses to do wound check on loop recorder insertion site. She will come into [facility] next week for wound check. documented in this encounter Plan of Treatment Upcoming Encounters Date Type Department Care Team (Late st Contact Info) Description 12/22/2024 9:50 AM EST Office Visit [facility] & [facility] MEDICINE [address] [facility] [address] [place] [address] Go Zazueta MD [address] [facility] [address] [place], [place] [id number] 01/15/2025 9:45 AM EDT Office Visit [facility] C[facility] [address] [facility] [address] [place] [address] Joy Skinner APRN [address] [facility] [address] [place] [id number] documented as of this encounter Visit Diagnoses Not on filedocumented in this encounter Care Teams Metal Reed Tuner Relationship Specialty Start Date End Date Davis Foote MD [address] [place] [address] [place] [address] PCP - General 09/18/15 07/21/22 documented as of this encounter
--- OUTSIDE RECORDS SUMMARY | 2024-10-02 13:10 | XMS_ITS | Encounter Summary ---
Author Organization [facility] Address [address] [place] [address] Care Team Providers Care Gimp Buttonhole Machine Operator Name Role Phone EverNurys bateman Gautam SORIANO Primary Care Provider Reason for Visit * Reason Comments Follow-up Encounter Details Date Type Department Care Team (Late st Contact Info) Description 07/29/2022 8:30 AM EDT Office Visit [facility] PRIMARY [facility] [address] [place] [address] [place] [address] Zach Foote MD [address] [place] [address] [place] [address] Mixed hyperlipidemia (Primary Dx); Acute cystitis without hematuria; Prediabetes Social History Tobacco Use Types Packs/Day Years [...] Sign Reading Time Taken Comments Blood Pressure 136/85 07/29/2022 8:34 AM EDT Pulse 67 07/29/2022 8:34 AM EDT Temperature 36.2 ??C (97.1 ??F) 07/29/2022 8:34 AM ED T Respiratory Rate 18 07/29/2022 8:34 AM EDT Oxygen Saturation 99% 07/29/2022 8:34 AM EDT Inhaled Oxygen Concentration - - Weight 77.8 kg (171 lb 9.6 oz) 07/29/2022 8:34 A M EDT Height 167.6 cm (5' 6 ) 07/29/2022 8:34 AM EDT Body Mass Index 27.7 07/29/2022 8:34 AM EDT documented in this encounter Progress Notes * Zach Foote MD - 07/29/2022 8:30 AM EDT Images from the original note were not included. Follow Up Office Visit Date: 07/29/2022 Patient Name: Rachael Fleming : 1945 Chief Complaint: Chief Complaint Patient presents with ??? Follow-up History of Present Illness: Rachael Fleming is a 76 y.o. female who is here today for purposes of reviewing recently obtained lab testing. She had an abnormal lipid profile, not currently on a statin previously having some vague myalgias from prior statins, specifics unknown. She also has a diagnosis of prediabetes with a hemoglobin A1c of 5.9%, noting several years prior her hemoglobin A1c was 6.0%. Generally she is very healthy in her diet, could increase her exercise however. She does have a history of Takotsubo cardiomyopathy with several flareups most recently several years prior, cur rently denying any chest pains palpitations dyspnea or edema. Finally she did have laboratory evidence of a Klebsiella cystitis, denying any specific symptoms such as dysuria hematuria frequency or urgency.. Subjective Review of Systems: Review of Systems I have reviewed the patients family history, social history, past medical history, past surgical history and have updated it as appropriate. Medications: Current Outpatient Medications: ??? albuterol sulfate [...] Meals., Disp: 180 tablet, Rfl: 3 ??? cefdinir (OMNICEF) 300 MG capsule, Take 1 capsule by mouth 2 (Two) Times a Day for 5 days., Disp: 10 capsule, Rfl: 0 ??? Cholecalciferol (Vitamin D3) 50 MCG (2000 UT) tablet, Take 1 tablet by mouth Daily., Disp: , Rfl: ??? fluticasone (FLONASE) 50 [...] puff, 2 puff, Inhalation, Q4H PRN, Kushal Silverman, BO Allergies: Allergies Allergen Reactions ??? Penicillins Hives ??? Phenergan [Promethazine Hcl] Hives ??? Statins Myalgia ??? Metronidazole Rash ??? Sudafed [Pseudoephedrine Hcl] Rash ??? Sulfa Antibiotics Rash Objective Physical Exam: Please see above Vital Signs: Vitals: 07/29/22 0834 BP: 136/85 BP Location: Right arm Patient Position: Sitting Cuff Size: Adult Pulse: 67 Resp: 18 Temp: 97.1 ??F (36.2 ??C) TempSrc: Temporal SpO2: 99% Weight: 77.8 kg (171 lb 9.6 oz) Height: 167.6 cm (66 ) Body mass index is 27.7 kg/m??. BMI is >= 25 and <30. (Overweight) The following options were offered after discussion;: weight loss educational material (shared in after visit summary), exercise counseling/recommendations and nutrition counseling/recommendations Physical Exam General: Very pleasant healthy-appearing 76-year-old white female with a BMI of 27.7. Lungs clear Cardiac regular rate rhythm with no murmurs gallops or rubs, no dependent edema Abdomen well tanned soft and nontender with no organomegaly or masses and normal bowel sounds Procedures Results: Labs: Hemoglobin A1C Date Value Ref Range Status 07/22/2022 5.9 (H) 4.8 - 5.6 % Final Comment: Prediabetes: 5.7 - 6.4 Diabetes: >6.4 Glycemic control for adults with diabetes: <7.0 06/04/2017 6.00 (H) 4.80 - 5.60 % Final TSH Date Value Ref Range Status 09/29/2017 1.144 0.350 - 5.350 mIU/mL Final POCT Results (if applicable): Results for orders [...] Catch Urine Result Value Ref Range Specific [place], UA 1.011 1.005 - 1.030 pH, UA [...] /lpf Bacteria, UA None seen None seen/Few Imaging: No valid procedures specified. Assessment / Plan Assessment/Plan: Diagnoses and all orders for this visit: 1. Mixed hyperlipidemia (Primary) - pravastatin (Pravachol) 20 MG tablet; Take 1 tablet by mouth Every Night. Take with Co-enzyme Q 10-100 mg daily Dispense: 90 tablet; Refill: 3 Initiate pravastatin 20 mg nightly along with coenzyme every 10 100 mg once daily, given moderate mixed hyperlipidemia with history of prediabetes. Emphasize healthy lifestyle. Repeat lipid profile in 3 months at her follow-up visit. 2. Acute cystitis without hematuria Treating with cefdinir 300 mg twice daily x5 days, called in yesterday at pharmacy. Fortunately nothaving any symptoms. 3. Prediabetes Hemoglobin A1c stable at 5.9% versus 6.0% several years prior. Emphasized again healthy lifestyle with diet and exercise. This would need to be updated every 6 months. Follow Up: No follow-ups on file. At [facility], we believe that sharing information builds trust and better relationships. You are receiving this note because you recently visited [facility]. It is possible you will see health information before a provider has talked with you about it. This kind of information can be easy to misunderstand. To help you fully understand what it means for your health, we urge you to discussthis note with your provider. Zach Foote MD [facility] Answers for HPI/ROS submitted by the patient on 07/26/2022 Please describe your symptoms.: Results from blood work concerns Have you had these symptoms before?: No How long have you been having these symptoms?: Greater than 2 weeks What is the primary reason for your visit?: Other documented in this encounter Plan of Treatment Upcoming Encounters Date Type Department Care Team (Late st Contact Info) Description 12/22/2024 9:50 AM EST Office Visit [facility] SPORTS MEDICINE [address] [address] Go Zazueta MD [address] [facility] [address] [place] [phone] 01/15/2025 9:45 AM EDT Office Visit [facility] CARDIOLOGY [address] [facility] [address] [place] [phone] Joy Skinner APRN [address] [facility] [address] [place] [address] documented as of this encounter Visit Diagnoses Diagnosis Mixed hyperlipidemia- Primary Acute cystitis without hematuria Prediabetes Other abnormal glucose documented in this encounter Care Teams Gimp Buttonhole Machine Operator Relationship Specialty Start Date End Date Nurys Curtis, WIRE WHE[employer] [place] [address] PCP - General Family Medicine 07/22/22 12/20/22 documented as of this encounter
--- OUTSIDE RECORDS SUMMARY | 2024-10-02 13:10 | XMS_ITS | Encounter Summary ---
[facility] Address [address] [place] [address] Care Team Providers Care Motor Vehicle Lecturer Name Role Phone Davis Foote MD Primary Care Provider [phone] Reason for Visit * Auth/Cert Specialty Diagnoses / Procedures Referred By Contac t Referred To Contact Diagnoses Atrial tachycardia Premature ventricular contractions (PVCs) (VPCs) Takotsubo cardiomyopathy Rapid palpitations Procedures KS INSERTION SUBQ CARDIAC RHYTHM MONITOR W/PRGRMG [place] EVENT RECORDER, CARDIAC Loop insertion Referral ID Status Reason Start Date Expiration Date Visits Re quested Visits Authorized [id number] 1 1 Encounter Details Date Type Department Care Team (Late st Contact Info) Description 01/31/2021 9:51 AM EDT - 01/31/2021 10:51 AM EDT 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 [facility] 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 [address] [place] [id number] Abebe Diego MD [address] [facility] [address] [place] [address] Loop insertion- Social History Tobacco Use Types Packs/Day Years [...] Sign Reading Time Taken Comments Blood Pressure 133/69 01/31/2021 10:45 AM EDT Pulse 66 01/31/2021 10:45 AM EDT Temperature 36.3 ??C (97.3 ??F) 01/31/2021 8:13 AM ED T Respiratory Rate 18 01/31/2021 10:4 1 AM EDT Oxygen Saturation 98% 01/31/2021 10: 45 AM EDT Inhaled Oxygen Concentration - - Weight 79.3 kg (174 lb 13.2 oz) 01/31/2021 8:13 AM EDT Height 167.6 cm (5' 6 ) 01/31/2021 8:13 AM EDT Body Mass Index 28.22 01/31/2021 8:13 AM EDT documented in this encounter Discharge Instructions * Attachments The following attachments cannot be sent through Care Everywhere. * Implantable Loop Recorder Placement (Bhutanese) * Implantable Loop Recorder Placement Care After (Bhutanese) * Moderate Conscious Sedation Adult Care After (Bhutanese) documented in this encounter Medications at Time of Discharge albuterol sulfate HFA 108 (90 Base) MCG/ACT inhaler Inhale 2 puffs Every 4 (Four) Hours As Needed for Wheezing. aspirin 81 MG EC tablet Take 1 tablet by mouth Daily. fluticasone (FLONASE) 50 MCG/ACT nasal spray 01/24/20 2 1 nitroglycerin (Nitrostat) 0.[address] 1 tablet under the tongue Every 5 (Five) Minutes As Needed for Chest Pain. Take no more than 3 doses in 15 minutes. 25 tablet 5 0 ALPRAZolam (XANAX) 0.25 MG tablet Take 0.25 mg by mouth At Night As Needed for Anxiety (0.5 tablet PRN). 07/22/20 22 amLODIPine (NORVASC) 2.5 MG tablet Take 2.5 mg by mouth Daily. 12/15/19 22 carvedilol (COREG) 3.125 MG tabletIndications:Takots ubo cardiomyopathy Take 1 tablet by mouth 2 (Two) Times a Day With Meals. 180 tablet 3 0 03/15/20 23 hydroCHLOROthiazide (MICROZIDE) 12.5 MG capsule 1 10/07/20 22 isosorbide mononitrate (IMDUR) 30 MG 24 hr tablet Take 1 tablet by mouth 2 (Two) Times a Day. 180 tablet 3 0 07/17/20 21 losartan (COZAAR) 100 MG tablet Take 50 mg by mouth Daily. 1 06/13/20 21 losartan 50 MG tablet 100 mg, hydroCHLOROthiazide 12.5 MG 12.5 mg Take 1 dose by mouth Daily. 02/14/20 21 meclizine (ANTIVERT) 25 MG tablet Take 1 tablet by mouth 3 (Three) Times a Day As Needed for dizziness. 30 tablet 8 02/14/20 21 omeprazole (priLOSEC) 40 MG capsule take 1 capsule by mouth once daily 1 capsule 3 9 11/30/19 23 zolpidem (AMBIEN) 10 MG tablet Take 5 mg by mouth At Night As Needed for sleep. 06/13/20 21 documented as of this encounter H&P Notes * Joy Skinner APRN - 01/31/2021 8:41 AM EDT [facility] History and physical Patient Care Team: Davis Foote MD as PCP - General Davis Foote MD as PCP - Family Medicine PROBLEM LIST: 1. Takotsubo cardiomyopathy, 3 known episodes (1996, 2007, 2015): a. Initial diagnosis??(1996)??with subsequent recovery. b. [facility],??08/1997: Normal EF. Normal coronary arteries. c. Recurrence with diagnosis of Takotsubo syndrome??(2007)??at the [facility]. d. [facility],??06/2008: EF 20%. No significant coronary artery disease.?? e. Echocardiogram,??01/2009: EF??55%. f. [facility],??10/26/2016:??EF 20%.??Takotsubo/stress-induced cardiomyopathy with severe LV systolic dysfunction.??Near normal coronary arteries. g. Echocardiogram,??10/28/2016: EF 41%.??Findings consistent with stress-induced (Takotsubo) cardiomyopathy.??Mild MR, mild TR.?? h. Echocardiogram, 12/21/2016: EF normalized at 55%. Normal valves. i. Echocardiogram, 06/04/2017: EF 55%. Normal valves. j. Echocardiogram, 09/29/2017: EF 65%. Normal valves. k. 2018, evaluated at [facility] 2. Recurrent palpitations/tachyarrhythmias: a. Normal Holter??(10/2011). [...] bpm. g. 11/2020 Monitor with brief PAT/MAT 3. Hypertension. 4. DONNA: a. Non-compliant with [...] Hcl] Rash ??? Sulfa Antibiotics Rash Current Facility-Administered Medications: ??? ondansetron (ZOFRAN) injection 4 mg, 4 mg, Intravenous, Q6H PRN, Clevinger, Joy, POWDERMAN ??? sodium chloride 0.9 % flush 10 mL, 10 mL, Intravenous, PRN, Clevinger, Joy, POWDERMAN ??? sodium chloride 0.9 % flush 3 mL, 3 mL, Intravenous, Q12H, Clevinger, Joy, POWDERMAN ??? vancomycin 1500 mg/500 mL 0.9% NS IVPB ([facility]), 1,500 mg, Intravenous, Once, Clevinger, Joy, POWDERMAN Facility-Administered Medications Prior to Admission Medication Dose Route Frequency Provider Last Rate Last Admin ??? albuterol (PROVENTIL HFA;VENTOLIN HFA) inhaler 2 puff 2 puff Inhalation Q4H PRN Kushal Silverman APRN Medications Prior to Admission Medication Sig Dispense Refill Last Dose ??? albuterol sulfate HFA 108 (90 Base) MCG/ACT inhaler Inhale 2 puffs Every 4 (Four) Hours As Needed for Wheezing. ??? ALPRAZolam (XANAX) 0.25 MG tablet Take 0.25 mg by mouth At Night As Needed for Anxiety (0.5 tablet PRN). ??? aspirin 81 MG EC tablet Take 81 mg by mouth Daily. ??? carvedilol (COREG) 3.125 MG tablet Take 1 tablet by mouth 2 (Two) Times a Day With Meals. 180 tablet 3 ??? isosorbide mononitrate (IMDUR) 30 MG 24 hr tablet Take 1 tablet by mouth 2 (Two) Times a Day. 180 tablet 3 ??? losartan-hydrochlorothiazide (HYZAAR) 50-12.5 MG per tablet Take 1 tablet by mouth Daily. 90 tablet 3 ??? meclizine (ANTIVERT) 25 MG tablet Take 1 tablet by mouth 3 (Three) Times a Day As Needed for dizziness. (Patient taking differently: Take 25 mg by mouth As Needed for dizziness.) 30 tablet 0 ??? nitroglycerin (Nitrostat) 0.[address] 1 tablet under the tongue Every 5 (Five) Minutes As Needed for Chest Pain. Take no more than 3 doses in 15 minutes. 25 tablet 5 ??? omeprazole (priLOSEC) 40 MG capsule take 1 capsule by mouth once daily 1 capsule 3 ??? zolpidem (AMBIEN) 10 MG tablet Take 5 mg by mouth At Night As Needed for sleep. Subjective . History of present illness: Patient is a 75-year-old female who is being seen today for loop recorder implant secondary to recurrent tachypalpitations. She has worn multiple event monitors in the past but did not havesymptoms while wearing these. Due to persistent symptoms and in frequency in nature it was recommended that she pursue loop recorder implant. She notes that since she was seen in the office in December she has had 2 severe episodes of tachypalpitations. Notes that she has had a couple of minor episodes as well. No syncope. No chest pain. Otherwise, has not noted any new symptoms since being seen.Notes that her blood pressure has been elevated recently and her primary care has been adjusting medications. Social History Socioeconomic History ??? Marital status: Spouse name: Not on file ??? Number of children: 2 ??? Years of education: Not on file ??? Highest education level: Not on file Tobacco Use ??? Smoking status: Never Smoker ??? Smokeless tobacco: Never Used Substance and Sexual Activity ??? Alcohol use: No ??? Drug use: No ??? Sexual activity: Defer Family History Problem Relation Age of Onset ??? Heart disease Mother ??? Stroke Mother ??? Heart disease Father ??? Cancer Sister ??? Stroke Maternal Grandmother ??? Heart disease Maternal Grandfather ??? Heart failure Maternal Grandfather ??? Heart failure Paternal Grandmother ??? Heart disease Paternal Grandfather Review of Systems: Review of Systems Constitutional: Negative for fever and malaise/fatigue. HENT: Negative for nosebleeds. Eyes: Negative for redness and visual disturbance. Cardiovascular: Positive for palpitations. Negative for orthopnea and paroxysmal nocturnal dyspnea. Respiratory: Negative for cough, snoring, sputum production and wheezing. Hematologic/Lymphatic: Negative for bleeding problem. Skin: Negative for flushing, itching and rash. Musculoskeletal: Positive for arthritis. Negative for falls, joint pain and muscle cramps. Gastrointestinal: Negative for abdominal pain, diarrhea, heartburn, nausea and vomiting. Genitourinary: Negative for hematuria. Neurological: Negative for excessive daytime sleepiness, dizziness, headaches, tremors and weakness. Psychiatric/Behavioral: Negative for substance abuse. The patient is nervous/anxious. Objective Vitals: BP 147/82 (BP Location: Left arm, Patient Position: Lying) Pulse 70 Temp 97.3 ??F (36.3 ??C) (Tympanic) Resp 16 Ht 167.6 cm (66 ) Wt 79.3 kg (174 lb 13.2 oz) SpO2 99% BMI 28.22 kg/m?? Vitals reviewed. Constitutional: Appearance: Healthy appearance. Well-developed and not in distress. Neck: Vascular: No JVD. Trachea: No tracheal deviation. Pulmonary: Effort: Pulmonary effort is normal. Breath sounds: Normal breath sounds. Cardiovascular: Normal rate. Regular rhythm. Pulses: Intact distal pulses. Edema: Peripheral edema absent. Abdominal: General: Bowel sounds are normal. Palpations: Abdomen is soft. Tenderness: There is no abdominal tenderness. Musculoskeletal: General: No deformity. Skin: General: Skin is warm and dry. Neurological: Mental Status: Alert and oriented to person, place, and time. Results Review: I reviewed the patient's new clinical results. Invalid input(s): LABALBU, PROT No results found for: TROPONINT Assessment/Plan 1. Recurrent tachypalpitations, has worn multiple monitors in the past but did not have symptoms. Symptoms noted to be fairly infrequent. 2. History of Takot subo cardiomyopathy, most recent echo with normal LVEF 2016. 3. Hypertension, amlodipine recently added per patient report. 4. Sleep apnea Plan: 1. We will proceed to loop recorder implant today. This was discussed with patient and . They verbalized understanding and wished to proceed. Further recommendations to follow loop recorder implant. Joy Skinner APRN Dictated utilizing [employer] dictation Cosigned by Abebe Diego MD at 01/31/2021 9:20 AM EDT Associated attestation - Abebe Diego MD - 01/31/2021 9:20 AM EDT w documented in this encounter Procedure Notes * Abebe Diego MD - 01/31/2021 10:33 AM EDTAssociated Order(s): Loop Recorder Implant - [facility] Post-Procedure Diagnose(s): Atrial tachycardia; Premature ventricular contractions (PVCs) (VPCs); Rapid palpitations Loop Recorder Implant - [facility] Date/Time: 01/31/2021 10:33 AM Performed by: Abebe Diego MD Authorized by: Abebe Diego MD Consent: Verbal consent obtained. Written consent obtained. Risks and benefits: risks, benefits and alternatives were discussed Consent given by: patient Patient understanding: patient states understanding of the procedure being performed Patient consent: the patient's understanding of the procedure matches consent given Procedure consent: procedure consent matches procedure scheduled Relevant documents: relevant documents present and verified Test results: test results available and properly labeled Site marked: the operative site was marked Patient identity confirmed: arm band Time out: Immediately prior to procedure a time out was called to verify the correct patient, procedure, equipment, manager support and site/side marked as required. Preparation: Patient was prepped and draped in the usual sterile fashion. Local anesthesia used: yes Anesthesia: local infiltration Anesthesia: Local anesthesia used: yes Local Anesthetic: lidocaine 1% without epinephrine Anesthetic total: 10 mL Sedation: Patient sedated: yes Sedation type: anxiolysis Sedatives: midazolam Sedation end date/time: 01/31/2021 10:34 AM Vitals: Vital signs were monitored during sedation. Patient tolerance: patient tolerated the procedure well with no immediate complications Comments: Successful implantable loop recorder implant, [employer] Lux-DX serial #[id number] Abebe Diego MD documented in this encounter Plan of Treatment Upcoming Encounters Date Type Department Care Team (Late st Contact Info) Description 12/22/2024 9:50 AM EST Office Visit [facility] [address] [place] [address] Go Zazueta MD [address] [facility] [address] [place] [address] 01/15/2025 9:45 AM EDT Office Visit [facility] C[facility] [address] [facility] [address] [place] [address] Joy Skinner APRN [address] [facility] [address] [facility] [address] [place] [address] documented as of this encounter Procedures Procedure Name Priority Date/Time Associated Diagnosis Comments LOOP RECORDER IMPLANT - TREATMENT ROOM Routine 01/31/2021 10:33 AM EDT Atrial tachycardia Premature ventricular contractions (PVCs) (VPCs) Rapid palpitations EP STUDY Routine 01/31/2021 10:31 AM EDT Atrial tachycardia Premature ventricular contractions (PVCs) (VPCs) Takotsubo cardiomyopathy Rapid palpitations POCT CREATININE Routine 01/31/2021 8:38 AM EDT CBC (NO DIFF) STAT 01/31/2021 8:21 AM EDT BASIC METABOLIC PANEL STAT 01/31/2021 8:21 AM EDT SCANNED - TELEMETRY 01/31/2021 documented in this encounter Results * LOOP RECORDER IMPLANT - TREATMENT ROOM (01/31/2021 10:33 AM EDT) Anatomical Region Laterality Modality Other Narrative 01/31/2021 10:33 AM EDT Abebe Diego MD ? 01/31/2021 10:37 AM Loop Recorder Implant - [facility] Date/Time: 01/31/2021 10:33 AM Performed by: Abebe Diego MD Authorized by: Abebe Diego MD Consent: Verbal consent obtained. Written consent obtained. Risks and benefits: risks, benefits and alternatives were discussed Consent given by: patient Patient understanding: patient states understanding of the procedure being performed Patient consent: the patient's understanding of the procedure matches consent given Procedure consent: procedure consent matches procedure scheduled Relevant documents: relevant documents present and verified Test results: test results available and properly labeled Site marked: the operative site was marked Patient identity confirmed: arm band Time out: Immediately prior to procedure a time out was called to verify the correct patient, procedure, equipment, manager support and site/side marked as required. Preparation: Patient was prepped and draped in the usual sterile fashion. Local anesthesia used: yes Anesthesia: local infiltration Anesthesia: Local anesthesia used: yes Local Anesthetic: lidocaine 1% without epinephrine Anesthetic total: 10 mL Sedation: Patient sedated: yes Sedation type: anxiolysis Sedatives: midazolam Sedation end date/time: 01/31/2021 10:34 AM Vitals: Vital signs were monitored during sedation. Patient tolerance: patient tolerated the procedure well with no immediate complications Comments: Successful implantable loop recorder implant, [employer] Lux? DX serial #[id number] Abebe Diego MD [facility] CARDIAC SERVICES ORDERABLES Final Result * LOOP INSERTION (01/31/2021 10:31 AM EDT) Anatomical Region Laterality Modality X-Ray Angiograph y Impressions 01/31/2021 10:41 AM EDT Successful loop recorder implant Complications: There are no signs of early complications Estimated blood loss: Less than 10 mL Narrative 01/31/2021 10:41 AM EDT Clinical History: Recurrent tachypalpitations Procedure narrative: Left anterior chest wall prepped and draped usual sterile fashion. ?? Premedicated with IV antibiotics. ??After 2 mg Versed, the left anterior chest wall 15 costal space and again infiltrated with 10 mg of lidocaine. ?? A [employer] implantable loop recorder was planted per package insert tool. ??[employer] Lux? DX serial #[id number] was implanted. ??No complications Abebe Diego MD CV ELECTROPHYSIOLOGY ORDERABLE S Final Result * POC Creatinine (01/31/2021 8:38 AM EDT) Creatinine 0.80 0.60 - 1.30 mg/dL 01/31/2021 2:09 PM EDT [facility] Comment:Serial Number: [id number] 8Operator: [id number] Blood 01/31/2021 8:38 AM EDT 01/31/2021 2:09 PM EDT Abebe Diego MD POINT OF CARE TEST ORDERABLES Final Result [facility]
[address] [place] [address], * (ABNORMAL) Basic Metabolic Panel (01/31/2021 8:21 AM EDT) Glucose 107(H) 65 - 99 mg/dL 01/31/2021 9:10 AM EDT [facility] BUN 15 8 - 23 mg/dL 01/31/2021 9:10 AM EDT [facility] Creatinine 0.88 0.57 - 1.00 mg/dL 01/31/2021 9:10 AM EDT [facility] Sodium 139 136 - 145 mmol/L 01/31/2021 9:10 AM EDT [facility] Potassium 4.5 3.5 - 5.2 mmol/L 01/31/2021 9:10 AM EDT [facility] Comment:Slight hemolysis det ected by analyzer. Results may be affected. Chloride 103 98 - 107 mmol/L 01/31/2021 9:10 AM EDT [facility] CO2 25.0 22.0 - 29.0 mmol/L 01/31/2021 9:10 AM EDT [facility] Calcium 9.4 8.6 - 10.5 mg/dL 01/31/2021 9:10 AM EDT [facility] eGFR Non Amer 63 >60 mL/min/1.7 3 01/31/2021 9:10 AM EDT [facility] BUN/Creatinine Ratio 17.0 7.0 - 25.0 01/31/2021 9:10 AM EDT [facility] Anion Gap 11.0 5.0 - 15.0 mmol/L 01/31/2021 9:10 AM EDT [facility] Blood Line / Unknown 01/31/2021 8: 21 AM EDT 01/31/2021 8:43 AM EDT Narrative [facility] - 01/31/2021 9:10 AM EDT GFR Normal >60 Chronic Kidney Disease <60 Kidney Failure <15 us Abebe Diego MD LAB BLOOD ORDERABLES Final Res ult [facility]
[address] [place] [address], * CBC (No Diff) (01/31/2021 8:21 AM EDT) WBC 6.50 3.40 - 10.80 10*3/mm3 01/31/2021 8:54 AM EDT [facility] RBC 4.65 3.77 - 5.28 10*6/mm3 01/31/2021 8:54 AM EDT [facility] Hemoglobin 13.2 12.0 - 15.9 g/dL 01/31/2021 8:54 AM EDT [facility] Hematocrit 41.1 34.0 - 46.6 % 01/31/2021 8:54 AM EDT [facility] MCV 88.4 79.0 - 97.0 fL 01/31/2021 8:54 AM EDT [facility] MCH 28.4 26.6 - 33.0 pg 01/31/2021 8:54 AM EDT [facility] MCHC 32.1 31.5 - 35.7 g/dL 01/31/2021 8:54 AM EDT [facility] RDW 12.3 12.3 - 15.4 % 01/31/2021 8:54 AM EDT [facility] RDW-SD 39.6 37.0 - 54.0 fl 01/31/2021 8:54 AM EDT [facility] MPV 9.9 6.0 - 12.0 fL 01/31/2021 8:54 AM EDT [facility] Platelets 336 140 - 450 10*3/mm3 01/31/2021 8:54 AM EDT [facility] Blood Line / Unknown 01/31/2021 8: 21 AM EDT 01/31/2021 8:43 AM EDT us Abebe Diego MD LAB BLOOD ORDERABLES Final Res ult [facility]
[address] [id number], * SCANNED - TELEMETRY (01/31/2021) Anatomical Region Laterality Modality Other [facility] Onbase ECG ORDERABLES Final Result documented in this encounter Visit Diagnoses Diagnosis Atrial tachycardia Other specified cardiac dysrhythmias Premature ventricular contractions (PVCs) (VPCs) Other premature beats Takotsubo cardiomyopathy Takotsubo syndrome Rapid palpitations Palpitations Atrial tachycardia Other specified cardiac dysrhythmias Premature ventricular contractions (PVCs) (VPCs) Other premature beats History of Takotsubo cardiomyopathy Takotsubo syndrome Rapid palpitations Palpitations Atrial tachycardia Other specified cardiac dysrhythmias Premature ventricular contractions (PVCs) (VPCs) Other premature beats Takotsubo cardiomyopathy Takotsubo syndrome Rapid palpitations Palpitations documented in this encounter Admitting Diagnoses Diagnosis Atrial tachycardia Other specified cardiac dysrhythmias Premature ventricular contractions (PVCs) (VPCs) Other premature beats Takotsubo cardiomyopathy Takotsubo syndrome Rapid palpitations Palpitations documented in this encounter Administered Medications Inactive Administered Medications - up to 3 most recent administrations Medication Order MAR Action Action Date Dose Rate Site lidocaine PF 1% (XYLOCAINE) injection As Needed, Starting on Wed01/31/21 at 1023 Given 01/31/2021 10:23 AM EDT 10 mL midazolam (VERSED) injection As Needed, Starting on Wed01/31/21 at 1014 Given 01/31/2021 10:14 AM EDT 2 mg vancomycin 1500 mg/500 mL 0.9% NS IVPB ([facility]) 1,500 mg, Intravenous, Once, On Wed01/31/21 at 0819, For 1 dose, Indications: Surgical ProphylaxisIndications:Surgical Prophylaxis New Bag 01/31/2021 10:15 AM EDT 1,500 mg documented in this encounter Active and Recently Administered Medications Times are shown in EDT. Scheduled Medication Order 01/29/2021 01/30/2021 01/31/2021 vancomycin 1500 mg/500 mL 0.9% NS IVPB ([facility]) (COMPLETED) 1,500 mg, Intravenous, Once, On Wed01/31/21 at 0819, For 1 dose, Indications: Surgical Prophylaxis 1015 (New Bag - Prov ider: Kecia Pham RN)[id number] (Stopped - Provider: Angélica Rodriguez RN) PRN Medication Order 01/29/2021 01/30/2021 01/31/2021 lidocaine PF 1% (XYLOCAINE) injection (CANCELED) As Needed, Starting on Wed01/31/21 at 1023 1023 (Given - Provid er: Abebe Diego MD - Comment: left mid chest area) midazolam (VERSED) injection (CANCELED) As Needed, Starting on Wed01/31/21 at 1014 1014 (Given - Provid er: Kecia Pham RN) documented in this encounter Care Teams Motor Vehicle Lecturer Relationship Specialty Start Date End Date Davis Foote MD [address] [place] [address] PCP - General 09/18/15 07/21/22 documented as of this encounter
--- OUTSIDE RECORDS SUMMARY | 2024-10-02 13:10 | XMS_ITS | Encounter Summary ---
Author Organization [facility] Address [address] [place] [address] Care Team Providers Care Medical Operations Supervisor Name Role Phone Nurys Curtis APRN Primary Care Provider Reason for Referral * Consultation (Routine) - Closed Specialty Diagnoses / Procedures Referred By Contac t Referred To Contact Cardiology Diagnoses Atypical chest pain Zaire Monae MD [address] [place] [address] Phone: tel: fax: [facility] [address] [facility] [address] [place] [address] Phone: tel: fax: Referral ID Status Reason Start Date Expiration Date V isits Requested Visits Authorized [id number] Closed Specialty Services Required 08/19/2022 08/19/2023 1 1 Reason for Visit * Reason Comments Shortness of Breath Encounter Details Date Type Department Care Team (Late st Contact Info) Description 08/19/2022 8:22 PM EDT - 08/19/2022 10:41 PM EDT Emergency [facility] EMERGENCY DEPARTMENT [address] [place] [address] Zaire Monae MD [address] [place] [address] Palpitation (Primary Dx); Acute left-sided thoracic back pain; Atypical chest pain Discharge Disposition: Home or Self Care Social [...] Sign Reading Time Taken Comments Blood Pressure 153/77 08/19/2022 10:30 PM EDT Pulse 70 08/19/2022 6:24 PM EDT Temperature 36.3 ??C (97.3 ??F) 08/19/2022 6:24 PM ED T Respiratory Rate 18 08/19/2022 6:24 PM EDT Oxygen Saturation 99% 08/19/2022 6:24 PM EDT Inhaled Oxygen Concentration - - Weight 76.7 kg (169 lb) 08/19/2022 6:24 PM EDT Height 167.6 cm (5' 6 ) 08/19/2022 6:24 PM EDT Body Mass Index 27.28 08/19/2022 6:24 PM EDT documented in this encounter Discharge Instructions * Attachments The following attachments cannot be sent through Care Everywhere. * Chest Wall Pain Hqgo-cw-[id number] (Prydeinig) * Acute Back Pain Adult (Prydeinig) documented in this encounter Medications at Time [...] 01/16/2020 3 Cholecalciferol (Vitamin D3) 50 MCG (2000 UT) tablet Take 1 tablet by mouth [...] 07/15/2022 3 losartan (COZAAR) 50 MG tablet 25 mg. 03/28/2021 2 omeprazole (priLOSEC) 40 MG capsule take 1 capsule by mouth once daily 1 capsule 3 07/18/2019 3 pravastatin (Pravachol) 20 MG tabletIndications:Mi xed hyperlipidemia Take 1 tablet by mouth Every Night. Take with Co-enzyme Q 10-100 mg daily 90 tablet 3 07/29/2022 3 predniSONE (DELTASONE) 10 MG tablet Take 3 (10 mg) tablets daily for 4 days 12 tablet 08/19/2022 2 documented as of this encounter ED Notes * Zaire Monae MD - 08/19/2022 8:40 PM EDT EMERGENCY DEPARTMENT ENCOUNTER Pt Name: Rachael Fleming Pt : 1945 Room Number: Date of encounter: 08/19/2022 PCP: Nurys Curtis APRN ED Provider: Zaire Monae MD Historian: Patient and family HPI: Chief Complaint: Thoracic back discomfort Context: Rachael Fleming is a 76 y.o. female who presents to the ED c/o pain in the upper thoracic area on the left, noticed for 4 to 5 days. Feels a pressure and sharp area in the back just medial to the scapula on the left side, without injury, no rash, this does feel better when her spouse pushes on the area with his finger to hit a tight muscular area. She did have palpitations last week. PAST MEDICAL HISTORY Past Medical History: Diagnosis Date ??? Acute hemorrhagic cystitis hospitalized at [facility], 06/21/2015 ??? Asthma ??? Atrial tachycardia [...] 11/05/2016 ??? Takotsubo cardiomyopathy Initially diagnosed at [facility] 2007. EF 20 at that time. 2009 EF 55% PAST SURGICAL HISTORY Past Surgical History: Procedure Laterality Date ??? [...] 2018 ??? HYSTERECTOMY enlarged uterus, bleeding, ~2000 FAMILY HISTORY Family History Problem Relation Age of Onset ??? Heart disease Mother ??? Stroke Mother ??? Heart disease Father ??? Heart attack Father ??? Cancer Sister ??? Stroke Maternal Grandmother ??? Heart disease Maternal Grandfather ??? Heart failure Maternal Grandfather ??? Heart failure Paternal Grandmother ??? Heart attack Paternal Grandmother ??? Heart disease Paternal Grandfather ??? Heart attack Paternal Grandfather SOCIAL HISTORY Social History Socioeconomic History ??? Marital status: ??? Number of children: 2 Tobacco Use ??? Smoking status: Never ??? Smokeless tobacco: Never Vaping Use ??? Vaping Use: Never used Substance and Sexual Activity ??? Alcohol use: No ??? Drug use: No ??? Sexual activity: Defer ALLERGIES Penicillins, Phenergan [promethazine hcl], Statins, Metronidazole, Sudafed [pseudoephedrine hcl], and Sulfa antibiotics REVIEW OF SYSTEMS Review of Systems Constitutional: Negative. No fever, no weakness. HENT: Negative for sneezing and sore throat. Respiratory: Negative for cough. Negative for shortness of breath. Cardiovascular: Negative. Negative for chest pain. Gastrointestinal: Negative. Negative for abdominal pain. Genitourinary: Negative. Negative for difficulty urinating. All systems reviewwed and negative except as noted in HPI. PHYSICAL EXAM I have reviewed the triage vital signs and nursing notes. ED Triage Vitals [08/19/22 1824] Temp Heart Rate Resp BP SpO2 97.3 ??F (36.3 ??C) 70 18 171/79 99 % Temp src Heart Rate Source Patient Position BP Location FiO2 (%) Oral -- -- -- -- Physical Exam GENERAL: Appears alert, no acute distress HENT: Nares patent. EYES: No scleral icterus. CV: Regular rhythm, regular rate. RESPIRATORY: Normal effort. No audible wheezes, rales or rhonchi. ABDOMEN: Soft, nontender MUSCULOSKELETAL: No deformities. Localization to pain with tenderness to deep palpation to the muscular area, adjacent to approximately T4 on the left, there is no rash. NEURO: Alert, moves all extremities, follows commands. SKIN: Warm, dry, no rash visualized. LAB RESULTS Recent Results (from the past 24 hour(s)) ECG 12 Lead Collection Time: 08/19/22 6:35 PM Result Value Ref Range QT Interval 396 ms QTC Interval 427 ms Comprehensive Metabolic Panel Collection Time: 08/19/22 6:40 PM Specimen: Blood Result Value Ref Range Glucose 105 (H) 65 - 99 mg/dL BUN 12 8 - 23 mg/dL Creatinine 0.77 0.57 - 1.00 mg/dL Sodium 139 136 - 145 mmol/L Potassium 4.2 3.5 - 5.2 mmol/L Chloride 101 98 - 107 mmol/L CO2 27.0 22.0 - 29.0 mmol/L Calcium 10.2 8.6 - 10.5 mg/dL Total Protein 7.3 6.0 - 8.5 g/dL Albumin 4.60 3.50 - 5.20 g/dL ALT (SGPT) 16 1 - 33 U/L AST (SGOT) 17 1 - 32 U/L Alkaline Phosphatase 88 39 - 117 U/L Total Bilirubin 0.4 0.0 - 1.2 mg/dL Globulin 2.7 gm/dL A/G Ratio 1.7 g/dL BUN/Creatinine Ratio 15.6 7.0 - 25.0 Anion Gap 11.0 5.0 - 15.0 mmol/L eGFR 81.1 >60.0 mL/min/1.73 BNP Collection Time: 08/19/22 6:40 PM Specimen: Blood Result Value Ref Range proBNP 85.3 0.0 - 900.0 pg/mL Troponin Collection Time: 08/19/22 6:40 PM Specimen: Blood Result Value Ref Range Troponin T <0.010 0.000 - 0.030 ng/mL Green Top (Gel) Collection Time: 08/19/22 6:40 PM Result Value Ref Range Extra Tube Hold for add-ons. Lavender Top Collection Time: 08/19/22 6:40 PM Result Value Ref Range Extra Tube hold for add-on Gold Top - SST Collection Time: 08/19/22 6:40 PM Result Value Ref Range Extra Tube Hold for add-ons. Light Blue Top Collection Time: 08/19/22 6:40 PM Result Value Ref Range Extra Tube Hold for add-ons. CBC Auto Differential Collection Time: 08/19/22 6:40 PM Specimen: Blood Result Value Ref Range WBC 8.06 3.40 - 10.80 10*3/mm3 RBC 4.57 3.77 - 5.28 10*6/mm3 Hemoglobin 13.6 12.0 - 15.9 g/dL Hematocrit 39.6 34.0 - 46.6 % MCV 86.7 79.0 - 97.0 fL MCH 29.8 26.6 - 33.0 pg MCHC 34.3 31.5 - 35.7 g/dL RDW 12.4 12.3 - 15.4 % RDW-SD 38.8 37.0 - 54.0 fl MPV 9.9 6.0 - 12.0 fL Platelets 369 140 - 450 10*3/mm3 Neutrophil % 56.8 42.7 - 76.0 % Lymphocyte % 30.1 19.6 - 45.3 % Monocyte % 9.4 5.0 - 12.0 % Eosinophil % 3.0 0.3 - 6.2 % Basophil % 0.6 0.0 - 1.5 % Immature Grans % 0.1 0.0 - 0.5 % Neutrophils, Absolute 4.57 1.70 - 7.00 10*3/mm3 Lymphocytes, Absolute 2.43 0.70 - 3.10 10*3/mm3 Monocytes, Absolute 0.76 0.10 - 0.90 10*3/mm3 Eosinophils, Absolute 0.24 0.00 - 0.40 10*3/mm3 Basophils, Absolute 0.05 0.00 - 0.20 10*3/mm3 Immature Grans, Absolute 0.01 0.00 - 0.05 10*3/mm3 nRBC 0.0 0.0 - 0.2 /100 WBC Magnesium Collection Time: 08/19/22 6:40 PM Specimen: Blood Result Value Ref Range Magnesium 2.0 1.6 - 2.4 mg/dL D-dimer, Quantitative Collection Time: 08/19/22 6:40 PM Specimen: Blood Result Value Ref Range D-Dimer, Quantitative <0.27 0.01 - 0.50 MCGFEU/mL If labs were ordered, I independently reviewed the results. RADIOLOGY XR Chest 1 View Result Date: 08/19/2022 DATE OF EXAM: 08/19/2022 7:00 PM PROCEDURE: XR CHEST 1 VW- INDICATIONS: SOA triage protocol and cough and weakness today COMPARISON: Single frontal view chest formed on 06/17/2018 TECHNIQUE: Single radiographic AP view of the chest was obtained. FINDINGS: Single frontal view chest reveals heart andmediastinum are normal. There are bilateral diffuse increased lung markings consistent with chroniclung disease. No evidence of focal infiltrate or pleural effusion or pneumothorax or mass right or left lungs. There is a small focal linear metallic cardiac monitoring device overlying the anterior inferior aspect of the left side of the chest 1. No acute disease in the chest and no ischemic change since previous study This report was finalized on 08/19/2022 7:09 PM by Carson Aguilar MD. I ordered and reviewed the above noted radiographic studies. I viewed images of thoracic spine which showed no acute findings per my independent interpretation. See radiologist's dictation for official interpretation. PROCEDURES Procedures ECG 12 Lead Final Result Test Reason : SOA Blood Pressure : */* mmHG Vent. 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) Abnormal ECG When compared with ECG of 17-JUN-2018 13:24, Questionable change in QRS axis Confirmed by ZAIRE MONAE ([id number]) on 08/19/2022 8:41:24 PM Referred By: EDMD Confirmed By: ZAIRE MONAE MEDICATIONS GIVEN IN ER Medications sodium chloride 0.9 % flush 10 mL (has no administration in time range) magnesium sulfate in D5W 1g/100mL (PREMIX) (1 g Intravenous New Bag 08/19/222128) predniSONE (DELTASONE) tablet 40 mg (has no administration in time range) PROGRESS, DATA ANALYSIS, CONSULTS, AND MEDICAL DECISION MAKING Resents with musculoskeletal type pain in the posterior thoracic spine, with reproducible pain to palpation, and pressure-point relief, did have palpitations previously. Has followed with a loop recorder with Dr. Diego. D- dimer and troponin are normal here as well as EKG screening and electrolytes. Did suggest cardiology follow-up, for review of the loop recorder, and clinical reevaluation after chest pain concern in the ED, which clinically today looks like musculoskeletal thoracic pain. I did suggest a trial of steroids for this, as well as a low-dose Flexeril. Differential diagnoses: Arrhythmia, ACS, PE. After clinical evaluation there is no signs or laboratory findings of acute unstable conditions such as these today. OF 21:41 EDT VITALS: BP - 171/79 HR - 70 TEMP - 97.3 ??F (36.3 ??C) (Oral) O2 SATS - 99% DIAGNOSIS Final diagnoses: Palpitation Acute left-sided thoracic back pain Atypical chest pain DISPOSITION DISCHARGE Patient discharged in stable condition. Reviewed implications of results, diagnosis, meds, responsibility to follow up, warning signs and symptoms of possible worsening, potential complications and reasons to return to ER. Patient/Family voiced understanding of above instructions. Discussed plan for discharge, as there is no emergent indication for admission. Pt/family is agreeable and understands need for follow up and possible repeat testing. Pt/family is aware that discharge does not mean that nothing is wrong but that it indicates no emergency is currently present that requires admission and they must continue care with follow-up as given below or with a physician of their choice. FOLLOW-UP [facility] [address] [place] [address] [facility] [address] Medication List New Prescriptions cyclobenzaprine 5 MG tablet Commonly known as: FLEXERIL Take 1 tablet by mouth 3 (Three) Times a Day As Needed for Muscle Spasms. predniSONE 10 MG tablet Commonly known as: DELTASONE Take 3 (10 mg) tablets daily for 4 days Where to Get Your Medications These medications were sent to [facility] - [place] - [address] [facility] [address] - [phone] - [phone] FX [address] [address], [place] [address] ?? cyclobenzaprine 5 MG tablet ?? predniSONE 10 MG tablet Zaire Monae MD 08/19/222140 documented in this encounter Plan of Treatment Upcoming Encounters Date Type Department Care Team (Late st Contact Info) Description 12/22/2024 9:50 AM EST Office Visit [facility] [address] [address] [place] [address] Go Zazueta MD [address] [facility] [address] [place], [place] [id number] 01/15/2025 9:45 AM EDT Office Visit [facility] [address] [facility] [address] [place] [address] Joy Skinner APRN [address] [facility] [address] [place] [address] [place], [place] [id number] Scheduled Referrals Name Type Priority Associated Diagnoses Order Schedule Ambulatory Referral to Cardiology Outpatient Referral Routine Atypical chest pain Ordered: 08/19/2022 documented as of this encounter Procedures Procedure Name Priority Date/Time Associated Diagnosis Comments XR SPINE THORACIC 3 VW STAT 9:22 PM EDT XR CHEST 1 VW STAT 08/19/2022 7:01 PM EDT THOMAS TOP STAT 08/19/2022 6:40 PM EDT GOLD TOP - SST STAT 08/19/2022 6:40 PM EDT DK GREEN TOP STAT 08/19/2022 6:40 PM EDT CBC WITH AUTO DIFFERENTIAL STAT 08/19/2022 6:40 PM EDT LAVENDER TOP STAT 08/19/2022 6:40 PM EDT LIGHT BLUE TOP STAT 08/19/2022 6:40 PM EDT RAINBOW DRAW STAT 08/19/2022 6:40 PM EDT TROPONIN STAT 08/19/2022 6:40 PM EDT D-DIMER, QUANTITATIVE STAT 08/19/2022 6:40 PM EDT CBC AND DIFFERENTIAL STAT 08/19/2022 6:40 PM EDT B-TYPE NATRIURETIC PEPTIDE STAT 08/19/2022 6:40 PM EDT MAGNESIUM STAT 08/19/2022 6:40 PM EDT COMPREHENSIVE METABOLIC PANEL STAT 08/19/2022 6:40 PM EDT ECG 12-LEAD STAT 08/19/2022 6:35 PM EDT documented in this encounter Results * XR Spine Thoracic 3 View (08/19/2022 9:22 PM EDT) Anatomical Region Laterality Modality Spine, T-spine N/A Radiographic Bonnie ging 08/19/2022 9:41 PM EDT Impressions 08/19/2022 9:41 PM EDT Vertebral body heights are maintained without evidence of acute fracture and alignment is anatomic without evidence of listhesis or subluxation. Mild spondylosis change is present, some areas of disc space height loss and small osteophytes present. This report was finalized on 08/19/2022 9:41 PM by Walt Jay. Narrative 08/19/2022 9:41 PM EDT DATE OF EXAM: 08/19/2022 9:11 PM PROCEDURE: XR SPINE THORACIC 3 VW- INDICATIONS: BACK PAIN COMPARISON: No comparisons available. TECHNIQUE: Three radiologic views of the thoracic spine were obtained. FINDINGS: Vertebral body heights are maintained without evidence of acute fracture and alignment is anatomic without evidence of listhesis or subluxation. Mild spondylosis change is present, some areas of disc space height loss and small osteophytes present. Procedure Note Walt Jay MD - 08/19/2022 DATE OF EXAM: 08/19/2022 9:11 PM PROCEDURE: XR SPINE THORACIC 3 VW- INDICATIONS: BACK PAIN COMPARISON: No comparisons available. TECHNIQUE: Three radiologic views of the thoracic spine were obtained. FINDINGS: Vertebral body heights are maintained without evidence of acute fracture and alignment is anatomic without evidence of listhesis or subluxation. Mild spondylosis change is present, some areas of disc space height loss and small osteophytes present. IMPRESSION: Vertebral body heights are maintained without evidence of acute fracture and alignment is anatomic without evidence of listhesis or subluxation. Mild spondylosis change is present, some areas of disc space height loss and small osteophytes present. This report was finalized on 08/19/2022 9:41 PM by Walt Jay. us Zaire Monae MD IMG DIAGNOSTIC IMAGING ORD ERABLES Final Result * XR Chest 1 View (08/19/2022 7:01 PM EDT) Anatomical Region Laterality Modality Body N/A Radiographic Bonnie ging 08/19/2022 7:08 PM EDT Impressions 08/19/2022 7:09 PM EDT 1. No acute disease in the chest and no ischemic change since previous study This report was finalized on 08/19/2022 7:09 PM by Carson Aguilar MD. Narrative 08/19/2022 7:09 PM EDT DATE OF EXAM: 08/19/2022 7:00 PM PROCEDURE: XR CHEST 1 VW- INDICATIONS: SOA triage protocol and cough and weakness today COMPARISON: Single frontal view chest formed on 06/17/2018 TECHNIQUE: Single radiographic AP view of the chest was obtained. FINDINGS: Single frontal view chest reveals heart and mediastinum are normal. There are bilateral diffuse increased lung markings consistent with chronic lung disease. No evidence of focal infiltrate or pleural effusion or pneumothorax or mass right or left lungs. There is a small focal linear metallic cardiac monitoring device overlying the anterior inferior aspect of the left side of the chest Procedure Note Carson Aguilar MD - 08/19/2022 DATE OF EXAM: 08/19/2022 7:00 PM PROCEDURE: XR CHEST 1 VW- INDICATIONS: SOA triage protocol and cough and weakness today COMPARISON: Single frontal view chest formed on 06/17/2018 TECHNIQUE: Single radiographic AP view of the chest was obtained. FINDINGS: Single frontal view chest reveals heart and mediastinum are normal. There are bilateral diffuse increased lung markings consistent with chronic lung disease. No evidence of focal infiltrate or pleural effusion or pneumothorax or mass right or left lungs. There is a small focal linear metallic cardiac monitoring device overlying the anterior inferior aspect of the left side of the chest IMPRESSION: 1. No acute disease in the chest and no ischemic change since previous study This report was finalized on 08/19/2022 7:09 PM by Carson Aguilar MD. Zaire Monae MD IMG DIAGNOSTIC IMAGING ORD ERABLES Final Result * D-dimer, Quantitative (08/19/2022 6:40 PM EDT) Pathologist [facility] D-Dimer, Quantitative <0.27 0.01 - 0.50 MCGFEU/mL 08/19/2022 9:14 PM EDT [facility] Blood Venipuncture / Unknown 08/19/2022 6:40 PM EDT 08/19/2022 6:45 PM EDT Narrative [facility] - 08/19/2022 9:14 PM EDT The D-Dimer assay test is to be used in conjunction with a clinical pretest probability (PTP) assessment model, and has been approved by the FDA to exclude pulmonary embolism (PE) and deep venous thrombosis (DVT) in outpatients suspected of PE or DVT, with a cutoff of 0.5 MCGFEU/mL. Zaire Monae MD LAB BLOOD ORDERABLES Final Result [facility]
[address] [place] [address], * Magnesium (08/19/2022 6:40 PM EDT) [facility] Magnesium 2.0 1.6 - 2.4 mg/dL 08/19/2022 9:27 PM EDT [facility] Blood Venipuncture / Unknown 08/19/2022 6:40 PM EDT 08/19/2022 6:45 PM EDT Zaire Monae MD LAB BLOOD ORDERABLES Final Result [facility]
[address] [place] [address], * CBC Auto Differential (08/19/2022 6:40 PM EDT) WBC 8.06 3.40 - 10.80 10*3/mm3 08/19/2022 6:48 PM EDT [facility] RBC 4.57 3.77 - 5.28 10*6/mm3 08/19/2022 6:48 PM EDT [facility] Hemoglobin 13.6 12.0 - 15.9 g/dL 08/19/2022 6:48 PM EDT [facility] Hematocrit 39.6 34.0 - 46.6 % 08/19/2022 6:48 PM EDT [facility] MCV 86.7 79.0 - 97.0 fL 08/19/2022 6:48 PM EDT [facility] MCH 29.8 26.6 - 33.0 pg 08/19/2022 6:48 PM EDT [facility] MCHC 34.3 31.5 - 35.7 g/dL 08/19/2022 6:48 PM EDT [facility] RDW 12.4 12.3 - 15.4 % 08/19/2022 6:48 PM EDT [facility] RDW-SD 38.8 37.0 - 54.0 fl 08/19/2022 6:48 PM EDT [facility] MPV 9.9 6.0 - 12.0 fL 08/19/2022 6:48 PM EDT [facility] Platelets 369 140 - 450 10*3/mm3 08/19/2022 6:48 PM EDT [facility] Neutrophil % 56.8 42.7 - 76.0 % 08/19/2022 6:48 PM EDT [facility] Lymphocyte % 30.1 19.6 - 45.3 % 08/19/2022 6:48 PM EDT [facility] Monocyte % 9.4 5.0 - 12.0 % 08/19/2022 6:48 PM EDT [facility] Eosinophil % 3.0 0.3 - 6.2 % 08/19/2022 6:48 PM EDT [facility] Basophil % 0.6 0.0 - 1.5 % 08/19/2022 6:48 PM EDT [facility] Immature Grans % 0.1 0.0 - 0.5 % 08/19/2022 6:48 PM EDT [facility] Neutrophils, Absolute 4.57 1.70 - 7.00 10*3/mm3 08/19/2022 6:48 PM EDT [facility] Lymphocytes, Absolute 2.43 0.70 - 3.10 10*3/mm3 08/19/2022 6:48 PM EDT [facility] Monocytes, Absolute 0.76 0.10 - 0.90 10*3/mm3 08/19/2022 6:48 PM EDT [facility] Eosinophils, Absolute 0.24 0.00 - 0.40 10*3/mm3 08/19/2022 6:48 PM EDT [facility] Basophils, Absolute 0.05 0.00 - 0.20 10*3/mm3 08/19/2022 6:48 PM EDT [facility] Immature Grans, Absolute 0.01 0.00 - 0.05 10*3/mm3 08/19/2022 6:48 PM EDT [facility] nRBC 0.0 0.0 - 0.2 /100 WBC 08/19/2022 6:48 PM EDT [facility] Blood Venipuncture / Unknown 08/19/2022 6:40 PM EDT 08/19/2022 6:45 PM EDT Zaire Monae MD LAB BLOOD ORDERABLES Final Result [facility]
[address] [place] [address], * Light Blue Top (08/19/2022 6:40 PM EDT) Extra Tube Hold for add-ons. 08/19/2022 7:46 PM EDT [facility] Comment:Auto resulted Blood Venipuncture / Unknown 08/19/2022 6:40 PM EDT 08/19/2022 6:45 PM EDT us Zaire Monae MD LAB BLOOD ORDER ONLY Final Result Performing Organization Address [facility] Co de Phone Number [facility]
[address] [place] [address], * Thomas Top (08/19/2022 6:40 PM EDT) Extra Tube Hold for add-ons. 08/19/2022 10:46 PM EDT [facility] Comment:Auto resulted. Blood Venipuncture / Unknown 08/19/2022 6:40 PM EDT 08/19/2022 6:45 PM EDT us Zaire Monae MD LAB BLOOD ORDER ONLY Final Result Performing Organization Address City/[facility] Co de Phone Number [facility]
[address] [place] [address], * Gold Top - SST (08/19/2022 6:40 PM EDT) Extra Tube Hold for add-ons. 08/19/2022 7:46 PM EDT [facility] Comment:Auto resulted. Blood Venipuncture / Unknown 08/19/2022 6:40 PM EDT 08/19/2022 6:45 PM EDT us Zaire Monae MD LAB BLOOD ORDER ONLY Final Result Performing Organization Address [facility] Co de Phone Number [facility]
[address] [place] [address], * Lavender Top (08/19/2022 6:40 PM EDT) Extra Tube hold for add-on 08/19/2022 7:46 PM EDT [facility] Comment:Auto resulted Blood Venipuncture / Unknown 08/19/2022 6:40 PM EDT 08/19/2022 6:45 PM EDT Zaire Monae MD LAB BLOOD ORDER ONLY Final Result Performing Organization Address [facility] Co de Phone Number [facility]
[address] [place] [address], * Green Top (Gel) (08/19/2022 6:40 PM EDT) Extra Tube Hold for add-ons. 08/19/2022 7:46 PM EDT [facility] Comment:Auto resulted. Blood Venipuncture / Unknown 08/19/2022 6:40 PM EDT 08/19/2022 6:45 PM EDT us Zaire Monae MD LAB BLOOD ORDER ONLY Final Result Performing Organization Address City/[facility] Co de Phone Number [facility]
[address] [place] [address], * Troponin (08/19/2022 6:40 PM EDT) Troponin T <0.010 0.000 - 0.030 ng/mL 08/19/2022 7:09 PM EDT [facility] Blood Venipuncture / Unknown 08/19/2022 6:40 PM EDT 08/19/2022 6:45 PM EDT [facility] - 08/19/2022 7:09 PM EDT Troponin T Reference Range: <= 0.03 ng/mL- ?? Negative for AMI >0.03 ng/mL- ? Abnormal for myocardial necrosis. ??Clinicians would have to utilize clinical acumen, EKG, Troponin and serial changes to determine if it is an Acute Myocardial Infarction or myocardial injury due to an underlying chronic condition. Results may be falsely decreased if patient taking Biotin. Zaire Monae MD LAB BLOOD ORDERABLES Final Result Performing Organization Address [facility] Co de Phone Number [facility]
[address] [place] [address], * BNP (08/19/2022 6:40 PM EDT) proBNP 85.3 0.0 - 900.0 pg/mL 08/19/2022 7:08 PM EDT [facility] Blood Venipuncture / Unknown 08/19/2022 6:40 PM EDT 08/19/2022 6:45 PM EDT [facility] - 08/19/2022 7:08 PM EDT Among patients with dyspnea, NT-proBNP is highly sensitive for the detection of acute congestive heart failure. In addition NT-proBNP of <300 pg/ml effectively rules out acute congestive heart failure with 99% negative predictive value. Results may be falsely decreased if patient taking Biotin. Zaire Monae MD LAB BLOOD ORDERABLES Final Result Performing Organization Address [facility] Co de Phone Number [facility]
[address] [place] [address], * (ABNORMAL) Comprehensive Metabolic Panel (08/19/2022 6:40 PM EDT) Glucose 105(H) 65 - 99 mg/dL 08/19/2022 7:10 PM EDT [facility] BUN 12 8 - 23 mg/dL 08/19/2022 7:10 PM EDT [facility] Creatinine 0.77 0.57 - 1.00 mg/dL 08/19/2022 7:10 PM EDT [facility] Sodium 139 136 - 145 mmol/L 08/19/2022 7:10 PM EDT [facility] Potassium 4.2 3.5 - 5.2 mmol/L 08/19/2022 7:10 PM T [facility] Comment:Slight hemolysis det ected by analyzer. Results may be affected. Chloride 101 98 - 107 mmol/L 08/19/2022 7:10 PM EDT [facility] CO2 27.0 22.0 - 29.0 mmol/L 08/19/2022 7:10 PM T [facility] Calcium 10.2 8.6 - 10.5 mg/dL 08/19/2022 7:10 PM [facility] Total Protein 7.3 6.0 - 8.5 g/dL 08/19/2022 7:10 PM T [facility] Albumin 4.60 3.50 - 5.20 g/dL 08/19/2022 7:10 PM [facility] ALT (SGPT) 16 1 - 33 U/L 08/19/2022 7:10 PM [facility] AST (SGOT) 17 1 - 32 U/L 08/19/2022 7:10 PM T [facility] Alkaline Phosphatase 88 39 - 117 U/L 08/19/2022 7:10 PM T [facility] Total Bilirubin 0.4 0.0 - 1.2 mg/dL 08/19/2022 7:10 PM EDT [facility] Globulin 2.7 gm/dL 08/19/2022 7:10 PM T [facility] Comment:Calculated Result A/G Ratio 1.7 g/dL 08/19/2022 7:10 PM T [facility] BUN/Creatinine Ratio 15.6 7.0 - 25.0 08/19/2022 7:10 PM EDT [facility] Anion Gap 11.0 5.0 - 15.0 mmol/L 08/19/2022 7:10 PM EDT [facility] eGFR 81.1 >60.0 mL/min/1. 73 08/19/2022 7:10 PM EDT [facility] Comment:National Kidney Foun dation and [place] Society of Nephrology (ASN) Task Force recommended calculation based on the Chronic Kidney Disease Epidemiology Collaboration (CKD-EPI) equation refit without adjustment for race. Blood Venipuncture / Unknown 08/19/2022 6:40 PM EDT 08/19/2022 6:45 PM EDT Narrative [facility] - 08/19/2022 7:10 PM EDT GFR Normal >60 Chronic Kidney Disease <60 Kidney Failure <15 The GFR formula is only valid for adults with stable renal function between ages 18 and 70. Zaire Monae MD LAB BLOOD ORDERABLES Final Result [facility]
[address] [place] [address], * ECG 12 Lead (08/19/2022 6:35 PM EDT) QT Interval 396 ms ECG QTC Interval 427 ms ECG 08/19/2022 6:35 PM EDT 08/19/2022 8:41 PM EDT Narrative ECG - 08/19/2022 8:41 PM EDT Test Reason : SOA Blood Pressure : ?? */* ?? mmHG Vent. Rate : ??70 BPM ? Atrial Rate : ??70 BPM ?? P-R Int : 178 ms ?QRS Dur : ??72 ms ?QT Int : 396 ms ? P-R-T Axes : ??58 ?? 2 ??33 degrees ?? 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 Confirmed By: ZAIRE MONAE Procedure Note Zaire Monae MD - 08/19/2022 Test Reason : SOA Blood Pressure : */* mmHG Vent. 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) Abnormal ECG When compared with ECG of 17-JUN-2018 13:24, Questionable change in QRS axis Confirmed by ZAIRE MONAE ([id number]) on 08/19/2022 8:41:24 PM Referred By: VALDO Confirmed By: ZAIRE MONAE Zaire Monae MD ECG ORDERABLES Final Resu lt ECG documented in this encounter Visit Diagnoses Diagnosis Palpitation- Primary Palpitations Acute left-sided thoracic back pain Atypical chest pain Other chest pain documented in this encounter Administered Medications Inactive Administered Medications - up to 3 most recent administrations Medication Order MAR Action Action Date Dose Rate Site magnesium sulfate in D5W 1g/100mL (PREMIX) 1 g, Intravenous, Administer over 1 Hours, Once, On Wed08/19/22 at 2103, For 1 dose New Bag 08/19/2022 9:29 PM EDT 1 g predniSONE (DELTASONE) tablet 40 mg 40 mg, Oral, Once, On Wed08/19/22 at 2141, For 1 dose, Take with food. Given 08/19/2022 10:09 PM EDT 40 mg sodium chloride 0.9 % flush 10 mL 10 mL, Intravenous, As Needed, Line Care, Starting on Wed08/19/22 at 1834 documented in this encounter Active and Recently Administered Medications Times are shown in EDT. Scheduled Medication Order 08/17/2022 08/18/2022 08/19/2022 magnesium sulfate in D5W 1g/100mL (PREMIX) (COMPLETED) 1 g, Intravenous, Administer over 1 Hours, Once, On Wed08/19/22 at 2103, For 1 dose 9 (New Bag - Prov ider: Roberto Pham RN)2239 (Stopped - Provider: Roberto Pham RN) predniSONE (DELTASONE) tablet 40 mg (COMPLETED) 40 mg, Oral, Once, On Wed08/19/22 at 2141, For 1 dose, Take with food. 220 (Given - Provid er: Roberto Pham RN) PRN Medication Order 08/17/2022 08/18/2022 08/19/2022 sodium chloride 0.9 % flush 10 mL 10 mL, Intravenous, As Needed, Line Care, Starting on Wed08/19/22 at 1834 documented in this encounter Care Teams Medical Operations Supervisor Relationship Specialty Start Date End Date Nurys Curtis APRN [address] [id number] PCP - General Family Medicine 07/22/22 12/20/22 documented as of this encounter
--- OUTSIDE RECORDS SUMMARY | 2024-10-02 13:10 | XMS_ITS | Encounter Summary ---
[facility] Address [address] [place] [address] Care Team Providers Care Customer Relations Advisor Name Role Phone Davis Foote MD Primary Care Provider [phone] Encounter Details Date Type Department Care Team (Late st Contact Info) Description 07/15/2022 Telephone [facility] [address] [place] [address] Davis Foote MD [address] [place] [address] Social History Tobacco Use Types Packs/Day Years [...] Telephone Encounter - Ceci Lowery MA - 07/15/2022 12:34 PM EDT Upcoming appointment on 07/22/2022 rx sent documented in this encounter Plan of Treatment Upcoming Encounters Date Type Department Care Team (Late st Contact Info) Description 12/22/2024 9:50 AM EST Office Visit [facility] [address] [facility] [address] [place] [address] Go Zazueta MD [address] [facility] [address] [place], [place] [id number] 01/15/2025 9:45 AM EDT Office Visit [facility] [address] [facility] [address] [place] [address] Joy Skinner APRN [address] [facility] [address] [place], [place] [id number] documented as of this encounter Visit Diagnoses Not on filedocumented in this encounter Care Teams Customer Relations Advisor Relationship Specialty Start Date End Date Davis Foote MD [address] [place] [address] [place] [address] PCP - General 09/18/15 07/21/22 documented as of this encounter
--- OUTSIDE RECORDS SUMMARY | 2024-10-02 13:10 | XMS_ITS | Encounter Summary ---
Author Organization [facility] Address [address] [place] [address] Care Team Providers Care Acoustical Carpenter Name Role Phone Nurys Curtis APRN Primary Care Provider [phone] Encounter Details Date Type Department Care Team (Late st Contact Info) Description 08/19/2022 Telephone [facility] [address] [facility] [address] [place] [address] Abebe Diego MD [address] [facility] [address] [place] [address] Social History Tobacco Use Types Packs/Day Years [...] Telephone Encounter - Grisel Irwin, RN - 08/19/2022 10:55 AM EDT Spoke with patient in response to her message requesting appt for back pressure and shortness of breath. She states started 6 days ago, one day at grocery she felt weak and like she may pass out, herfriend helped get her home and she felt some better, however is not getting better so would like daily evaluated. Advised will have space scheduler call with next available and in the interim to speak to PCP for potential visit prior to f/u with us. documented in this encounter Plan of Treatment Upcoming Encounters Date Type Department Care Team (Late st Contact Info) Description 12/22/2024 9:50 AM EST Office Visit [facility] [address] [facility] [address] [place] [address] Go Zazueta MD [address] [facility] [address] [place] [address] 01/15/2025 9:45 AM EDT Office Visit [facility] [address] [facility] [address] [place] [id number] Joy Skinner APRN [address] [facility] [address] [facility] [address] [place] [phone] documented as of this encounter Visit Diagnoses Not on filedocumented in this encounter Care Teams Acoustical Carpenter Relationship Specialty Start Date End Date Nurys Curtis, TIE INSPECTOR [address] [place] [address] PCP - General Family Medicine 07/22/22 12/20/22 documented as of this encounter
--- OUTSIDE RECORDS SUMMARY | 2024-10-02 13:10 | XMS_ITS | Encounter Summary ---
Author Organization [facility] Address [address] [place] [address] Care Team Providers Care Materials Engineering Technician Name Role Phone Davis Foote MD Primary Care Provider [phone] Reason for Referral * Physical Therapy (Routine) - Closed Specialty Diagnoses / Procedures Referred By Contac t Referred To Contact Physical Therapy Diagnoses Nontraumatic complete tear of left rotator cuff Impingement syndrome of left shoulder Bursitis of left shoulder Ashwin Johnson MD [address] [place] [phone] Phone: tel: fax: [address] [address] Phone: tel: fax: Referral ID Status Reason Start Date Expiration Date V isits Requested Visits Authorized [id number] Closed Specialty Services Required 06/13/2021 06/13/2022 1 1 Reason for Visit * Reason Comments Follow-up 3 month f/u Nontraum atic complete tear of left rotator cuff , last injection 03/11/21 Encounter Details Date Type Department Care Team (Late st Contact Info) Description 06/13/2021 10:00 AM EDT Office Visit [facility] [address] [place] [place] [phone] Ashwin Johnson MD [address] [place] [phone] Nontraumatic complete tear of left rotator cuff [...] Sign Reading Time Taken Comments Blood Pressure 161/82 06/13/2021 9:49 AM EDT Pulse 64 06/13/2021 9:49 AM EDT Temperature - - Respiratory Rate - - Oxygen Saturation - - Inhaled Oxygen Concentration - - Weight 78.5 kg (173 lb) 06/13/2021 9:49 AM EDT Height 167.4 cm (5' 5.91 ) 06/13/2021 9:49 AM ED T Body Mass Index 28 06/13/2021 9:49 AM EDT documented in this encounter Progress Notes * Ashwin Johnson MD - 06/13/2021 10:00 AM EDT Images from the original note were not included. [facility] [place] Follow Up Office Follow Up Visit Patient Name: Rachael Fleming Chief Complaint: Chief Complaint Patient presents with ??? Left Shoulder - Follow-up 3 month f/u Nontraumatic complete tear of left rotator cuff , last injection 03/11/21 Referring Physician: No ref. provider found History of Present Illness: It has been 3 month(s) since Rachael Fleming's last visit. Rachael Fleming returns to clinic today for F/U: follow-up of leftBody Part: shoulderReason: pain. The issue has been ongoing for 1 year(s). Rachael Fleming rates HIS/HER: herpain at 6/10 on the pain scale. Previous/current treatments: NSAIDS and physical therapy. Current symptoms:Symptoms: pain. The pain is worse with sleeping, working, leisure and lying on affected side; resting, ice, heat and pain medication and/or NSAID improves the pain. Overall, he/she: sheis doing better. I have reviewed the patient's history of present illness as noted/entered above. I have reviewed the patient's past medical history, surgical history, social history, family history, medications, and allergies as noted in the electronic medical record and as noted/entered. I havereviewed the patient's review of systems as noted/enter and updated as noted in the patient's HPI. LEFT SHOULDER PT helping but pausing bc increase COVID at [facility] PT helped, +/- on prior injection but interested in repeat injection PRIOR: Left shoulder Pain is the same ? PCP: Davis Foote MD ?? LEFT SHOULDER ? Prior history: Prior [place] around 2016 -- Cardiology Dr. [place] Loop recorder - racing heart ? Pratibha ?? Enjoys: swimming, outside, farm, gardening Family within 3 miles, nearby farms Subjective Subjective Review of Systems Constitutional: Negative. Negative for chills, fatigue and fever. HENT: Negative. Negative for congestion and dental problem. Eyes: Negative. Negative for blurred vision. Respiratory: Negative. Negative for shortness of breath. Cardiovascular: Negative. Negative for leg swelling. Gastrointestinal: Negative. Negative for abdominal pain. Endocrine: Negative. Negative for polyuria. Genitourinary: Negative. Negative for difficulty urinating. Musculoskeletal: Positive for arthralgias. Skin: Negative. Allergic/Immunologic: Negative. Neurological: Negative. Hematological: Negative. Negative for adenopathy. Psychiatric/Behavioral: Negative. [...] 11/05/2016 ??? Takotsubo cardiomyopathy Initially diagnosed at [place] 2007. EF 20 at that time. 2009 [...] 180 tablet, Rfl: 3 ??? losartan (COZAAR) 50 MG tablet, 25 [...] problem list. Objective Objective Vital Signs: Vitals: 06/13/21 0949 BP: 161/82 Pulse: 64 Weight: 78.5 kg (173 lb) Height: 167.4 cm (65.91 ) Ortho Exam: LEFT shoulder +impingement testing Great RC strength Results Review: Imaging Results (Last 24 Hours) No results found for the last 24 hours. MRI Shoulder Left Without Contrast Result Date: 03/15/2021 1. Moderate AC joint arthropathy and small [...] 9:[address] Salomon Camacho MD. As noted prior Procedures LEFT SHOULDER SUBACROMIAL SPACE INJECTION: Risks and benefits of a shoulder subacromial space injection were discussed and the patient desired to proceed. Verbal consent was obtained. The patient understood the risk of infection, potential skin changes, bump in blood glucose especially with diabetes, nerve injury, possibility of increased pain in the short term, and possible incomplete pain relief. Using sterile technique, the shoulder subacromial space was injected from a posterior approach with 1mL of 80mg/mL Depo Medrol and 4cc of lidocaine with aspiration prior to injection. The patient tolerated the procedure without difficulty. CPT CODE 04528 for major joint aspiration/injection Assessment / Plan Assessment/Plan: Problem List Items Addressed This Visit Musculoskeletal and Injuries Nontraumatic complete tear of left rotator cuff - Primary Relevant Orders Ambulatory Referral to Physical Therapy Evaluate and treat, Ortho (Completed) Impingement syndrome of left shoulder Relevant Orders Ambulatory Referral to Physical Therapy Evaluate and treat, Ortho (Completed) Bursitis of left shoulder Relevant Orders Ambulatory Referral to Physical Therapy Evaluate and treat, Ortho (Completed) LEFT SHOULDER Reevaluation Repeat injection PT Rx Follow Up: HAYLEY Johnson MD, FAAOS Orthopedic Surgeon Fellowship Trained Shoulder and Elbow Surgeon [facility] [address] [place] [address], [address] [place] [address] 06/13/21 10:34 EDT Please note that portions of this note may have been completed with a voice recognition program. Efforts were made to edit the dictations, but occasionally words are mistranscribed. * Omaira Abraham MA - 06/13/2021 10:00 AM EDTAssociated Order(s): Large Joint Arthrocentesis: L subacromial bursa Procedure Large Joint Arthrocentesis: L subacromial bursa Date/Time: 06/13/2021 10:40 AM Consent given by: patient Site marked: site marked Timeout: Immediately prior to procedure a time out was called to verify the correct patient, procedure, equipment, media production support manager and site/side marked as required Supporting Documentation Indications: pain Procedure Details Location: shoulder - L subacromial bursa Preparation: Patient was prepped and draped in the usual sterile fashion Needle size: 23 G Approach: posterior Medications administered: 5 mL lidocaine PF 1% 1 %; 80 mg methylPREDNISolone acetate 80 MG/ML Patient tolerance: patient tolerated the procedure well with no immediate complications documented in this encounter Plan of Treatment Upcoming Encounters Date Type Department Care Team (Late st Contact Info) Description 12/22/2024 9:50 AM EST Office Visit [facility] [address] [facility] [address] [place] [address] Go Zazueta MD [address] [facility] [address] [place], [place] [phone] 01/15/2025 9:45 AM EDT Office Visit [facility] [address] [facility] [address] [place] [address] Joy Skinner APRN [address] [facility] [address] [place] [address] documented as of this encounter Procedures Procedure Name Priority Date/Time Associated Diagnosis Comments OR ARTHROCENTESIS ASPIR&/INJ MAJOR JT/BURSA W/O US Routine 06/13/2021 10:40 AM EDT Nontraumatic complete tear of left rotator cuff Impingement syndrome of left shoulder Bursitis of left shoulder documented in this encounter Results * OR ARTHROCENTESIS ASPIR&/INJ MAJOR JT/BURSA W/O US (06/13/2021 10:40 AM EDT) Narrative Omaira Abraham MA - 06/13/2021 10:40 AM EDT Omaira Abraham MA ? 06/13/2021 10:44 AM Large Joint Arthrocentesis: L subacromial bursa Date/Time: 06/13/2021 10:40 AM Consent given by: patient Site marked: site marked Timeout: Immediately prior to procedure a time out was called to verify the correct patient, procedure, equipment, media production support manager and site/side marked as required Supporting Documentation Indications: pain Procedure Details Location: shoulder - L subacromial bursa Preparation: Patient was prepped and draped in the usual sterile fashion Needle size: 23 G Approach: posterior Medications administered: 5 mL lidocaine PF 1% 1 %; 80 mg methylPREDNISolone acetate 80 MG/ML Patient tolerance: patient tolerated the procedure well with no immediate complications Ashwin Johnson MD PROCEDURE/MINOR SURGICAL ORDERABLES Final Result documented in this encounter Visit Diagnoses Diagnosis Nontraumatic complete tear of left rotator cuff- Primary Impingement syndrome of left shoulder Bursitis of left shoulder documented in this encounter Administered Medications Inactive Administered Medications - up to 3 most recent administrations Medication Order MAR Action Action Date Dose Rate Site lidocaine PF 1% (XYLOCAINE) injection 5 mL 5 mL, One-Time Injection, Starting on Wed06/13/21 at 1040, For 1 doseIndications:Nontraumatic complete tear of left rotator cuff,Impingement syndrome of left shoulder,Bursitis of left shoulder Given 06/13/2021 10:40 AM EDT 5 mL methylPREDNISolone acetate (DEPO-medrol) injection 80 mg 80 mg, One-Time Injection, Starting on Wed06/13/21 at 1040, For 1 doseIndications:Nontraumatic complete tear of left rotator cuff,Impingement syndrome of left shoulder,Bursitis of left shoulder Given 06/13/2021 10:40 AM EDT 80 mg documented in this encounter Care Teams Materials Engineering Technician Relationship Specialty Start Date End Date Davis Foote MD [address] [place] [address] PCP - General 09/18/15 07/21/22 documented as of this encounter
--- OUTSIDE RECORDS SUMMARY | 2024-10-02 13:10 | XMS_ITS | Encounter Summary ---
Author Organization [facility] Address [address] [place] [address] Care Team Providers Care Press Clippings Cutter And Paster Name Role Phone EverNurys bateman Gautam SORIANO Primary Care Provider [phone] Encounter Details Date Type Department Care Team (Late st Contact Info) Description 07/28/2022 Telephone [facility] [address] [place] [address] [place] [address] Zach Foote MD [address] [place], [place] [id number] Social History Tobacco Use Types Packs/Day Years [...] encounter Miscellaneous Notes * Telephone Encounter - Zach Foote MD - 07/28/2022 6:13 PM EDT Phone conversation patient regarding recent labs including urinalysis growing greater than 100,000 colonies of Klebsiella pneumoniae, resistant to Macrodantin and ampicillin, patient having a penicillin and sulfa allergy. Urine microalbumin normal, total cholesterol 230, triglyceride 177, HDL 54, LDL 144 in this lady with prediabetes, noting her hemoglobin A1c is 5.9% with no prediabetes, hep C normal, proBNP normal, CMP with a glucose of 116 otherwise normal. Assessment/plan: 1. Klebsiella pneumoniae cystitis. Treat with cefdinir 300 mg twice daily x5 days, noting patient does have a history of penicillin allergy with a unlikely cross reaction, noting also sulfa allergy limiting options. 2. Mixed hyperlipidemia. Will discuss with patient more specific treatment options recommending initiation of statin, likely atorvastatin 10 mg nightly with plan to repeat lipid profile in 3 months. 3. Prediabetes, stable. 4. Will discuss with patient more in detail at her follow-up visit tomorrow in the office. Patient acknowledges understanding. documented in this encounter Plan of Treatment Upcoming Encounters Date Type Department Care Team (Late st Contact Info) Description 12/22/2024 9:50 AM EST Office Visit [facility] [address] [facility] [address] [place] [phone] Go Zazueta MD [address] [facility] [address] [place] [address] 01/15/2025 9:45 AM EDT Office Visit [facility] [address] [facility] [address] [place] [address] Joy Skinner APRN [address] [facility] [address] [facility] [address] [place] [address] documented as of this encounter Visit Diagnoses Diagnosis Acute cystitis without hematuria- Primary documented in this encounter Care Teams Press Clippings Cutter And Paster Relationship Specialty Start Date End Date Nurys Curtis APRN [address] [place] [id number] PCP - General Family Medicine 07/22/22 12/20/22 documented as of this encounter
--- OUTSIDE RECORDS SUMMARY | 2024-10-02 13:10 | XMS_ITS | Encounter Summary ---
Author Organization [facility] Address [address] [place] [address] Care Team Providers Care Media Intern Name Role Phone Davis Foote MD Primary Care Provider [phone] Reason for Visit * Reason Comments Med Refill Encounter Details Date Type Department Care Team (Late st Contact Info) Description 07/17/2021 Refill [facility] [address] [facility] [address] [place] [phone] Abebe Diego MD [address] [facility] [address] [place], [place] [id number] Med Refill Social History Tobacco Use Types [...] Encounters Date Type Department Care Team (Late Contact Info) Description 12/22/2024 9:50 AM EST Office Visit [facility] [address] [facility] [address] [place] [address] Go Zazueta MD [address] [facility] [address] [place], [place] [id number] 01/15/2025 9:45 AM EDT Office Visit [facility] [address] [place] [address] Joy Skinner APRN [address] [place] [address] documented as of this encounter Visit Diagnoses Not on filedocumented in this encounter Care Teams Media Intern Relationship Specialty Start Date End Date Davis Foote MD [address] [place] [address] PCP - General 09/18/15 07/21/22 documented as of this encounter
--- OUTSIDE RECORDS SUMMARY | 2024-10-02 13:10 | XMS_ITS | Encounter Summary ---
Author Organization [facility] Address [address] [place] [address] Care Team Providers Care Electrochemist Name Role Phone Davis Foote MD Primary Care Provider [phone] Reason for Visit * Reason Onset Date Comments home monitoring/Fainting 07/22/2021 Encounter Details Date Type Department Care Team (Late st Contact Info) Description 07/22/[address] [facility] [address] [facility] [address] [place] [address] Abebe Diego MD [address] [facility] [address] [place] [address] home monitoring/Fainting Social History Tobacco Use Types Packs/Day Years [...] encounter Miscellaneous Notes * Telephone Encounter - Agustín Weinstein Vero - 07/22/2021 1:54 PM EDT PT called concerned about us receiving her transmissions. She states several times she has experienced episodes of pressure in her back moving into her chest,getting light headed and feeling like sheis going to pass out. I reviewed her transmissions and other than a few PVC's they are normal. She ask me if I thought she needed to see Dr Diego earlier than her scheduled appointment and I told her that was up to her. She will talk with her and daughter and make a decision at that time. documented in this encounter Plan of Treatment Upcoming Encounters Date Type Department Care Team (Late st Contact Info) Description 12/22/2024 9:50 AM EST Office Visit [facility] [address] [facility] [address] [place] [address] Go Zazueta MD [address] [facility] [address] [place], [place] [id number] 01/15/2025 9:45 AM EDT Office Visit [facility] [address] [facility] [address] [place] [phone] Joy Skinner APRN [address] [facility] [address] [place], [place] [id number] documented as of this encounter Visit Diagnoses Not on filedocumented in this encounter Care Teams Electrochemist Relationship Specialty Start Date End Date Davis Foote MD [address] [place] [address] [place] [address] PCP - General 09/18/15 07/21/22 documented as of this encounter
--- OUTSIDE RECORDS SUMMARY | 2024-10-02 13:10 | XMS_ITS | Encounter Summary ---
Author Organization [facility] Address [address] [place] [address] Care Team Providers Care Networking Technician Name Role Phone EverUliNurysphilipp Florez APRN Primary Care Provider Reason for Visit * Reason Comments Follow-up Encounter Details Date Type Department Care Team (Late st Contact Info) Description 07/22/2022 8:30 AM EDT Office Visit [facility] [address] [place] [address] [place] [address] Zach Foote MD [address] [place] [address] [place] [address] History of Takotsubo cardiomyopathy (Primary Dx); Premature ventricular contractions (PVCs) (VPCs); Prediabetes; Essential hypertension; DONNA (obstructive sleep apnea); Need for hepatitis C screening test; Screening mammogram for breast cancer; Screening for osteoporosis; Osteopenia, unspecified location; Systolic congestive heart failure, unspecified HF chronicity; Other specified disorders of bone density and structure, multiple sites ; Situational anxiety; Personal history of COVID-19; Need for prophylactic vaccination and inoculation against influenza Social History Tobacco Use Types Packs/Day Years [...] Sign Reading Time Taken Comments Blood Pressure 146/96 07/22/2022 8:30 AM EDT Pulse 74 07/22/2022 8:30 AM EDT Temperature 36.3 ??C (97.3 ??F) 07/22/2022 8:30 AM ED T Respiratory Rate 18 07/22/2022 8:30 AM EDT Oxygen Saturation 98% 07/22/2022 8:30 AM EDT Inhaled Oxygen Concentration - - Weight 76.8 kg (169 lb 6.4 oz) 07/22/2022 8:30 A M EDT Height 167.6 cm (5' 6 ) 07/22/2022 8:30 AM EDT Body Mass Index 27.34 07/22/2022 8:30 AM EDT documented in this encounter Progress Notes * Zach Foote MD - 07/22/2022 8:30 AM EDT Images from the original note were not included. Follow Up Office Visit Date: 07/22/2022 Patient Name: Rachael Fleming : 1945 Chief Complaint: Chief Complaint Patient presents with ??? Follow-up History of Present Illness: Rachael Fleming is a 76 y.o. female who is here today for general review, recent patient of Dr. Davis Foote who subsequently is retired. She also sees Dr. Chamorro of cardiology. History of Takotsubo cardiomyopathy initially 1996, then again in 2007 most recently 2015 with subsequent recovery with most recent echocardiogram revealing EF of 65% in 09/2017. She also hasa history of palpitations having a loop monitor implanted, with no significant pathological findings noted. She will occasionally have a fleeting chest pain or palpitation, often gets anxious with this and has historically been given a very small amount of low-dose Xanax to take if she ever has a similar type problem. She typically uses this no more than once or twice a month. She did have COVID-19 infection in 05/2022 having some prolonged fatigue and exhaustion which is slowly improving. She denies any symptoms of sustained chest pains, sustained palpitations, dyspnea, but no orthopnea PND or significant edema. She also is prediabetic not checking blood sugars with last hemoglobin A1c 5.9%in 12/2021. No neuropathic symptoms. History of hypertension with blood pressures 110s to 120s over 70s to 80s with pulse rate in the 60s to 80s.. Subjective Review of Systems: Review of Systems I have reviewed the patients family history, social history, past medical history, past surgical history and have updated it as appropriate. Medications: Current Outpatient Medications: ??? albuterol sulfate HFA 108 (90 Base) MCG/ACT inhaler, Inhale 2 puffs Every 4 (Four) Hours As Needed for Wheezing., Disp: , Rfl: ??? aspirin 81 MG EC tablet, Take 81 mg by mouth Daily., Disp: , Rfl: ??? carvedilol (COREG) 3.125 MG tablet, Take 1 tablet by mouth 2 (Two) Times a Day With Meals., Disp: 180 tablet, Rfl: 3 ??? Cholecalciferol (Vitamin D3) 50 MCG (1999 UT) tablet, Take 1 tablet by mouth [...] MG tablet, , Disp: , Rfl: ??? ALPRAZolam (XANAX) 0.25 MG tablet, Take 1 tablet by mouth 2 (Two) Times a Day As Needed for Anxiety., Disp: 10 tablet, Rfl: 0 Current Facility-Administered Medications: ??? albuterol (PROVENTIL HFA;VENTOLIN HFA) inhaler 2 puff, 2 puff, Inhalation, Q4H DEIONN, Kushal Silverman APRN Allergies: Allergies Allergen Reactions ??? Penicillins Hives ??? Phenergan [Promethazine Hcl] Hives ??? Statins Myalgia ??? Metronidazole Rash ??? Sudafed [Pseudoephedrine Hcl] Rash ??? Sulfa Antibiotics Rash Objective Physical Exam: Please see above Vital Signs: Vitals: 07/22/22 0830 BP: 146/96 BP Location: Left arm Patient Position: Sitting Cuff Size: Adult Pulse: 74 Resp: 18 Temp: 97.3 ??F (36.3 ??C) TempSrc: Temporal SpO2: 98% Weight: 76.8 kg (169 lb 6.4 oz) Height: 167.6 cm (66 ) Body mass index is 27.34 kg/m??. BMI is >= 25 and <30. (Overweight) The following options were offered after discussion;: weight loss educational material (shared in after visit summary), exercise counseling/recommendations and nutrition counseling/recommendations Physical Exam General: Very pleasant healthy-appearing 76-year-old white female with a BMI of 27.3. No acute distress. Neck supple with no masses or tenderness Lungs clear with no wheeze tachypnea dyspnea or cough Cardiac regular rate rhythm with no murmurs gallops or rubs, no dependent edema, loop monitor palpated in her left chest wall Bipedal exam with 2+ DP and 1+ PT pulses bilaterally, normal sensation of both feet to fine touch vibration and pinprick with no skin breakdown, motor exam normal, no significant dependent edema Procedures Results: Labs: Hemoglobin A1C Date Value Ref Range Status 06/04/2017 6.00 (H) 4.80 - 5.60 % Final TSH Date Value Ref Range Status 09/29/2017 1.144 0.350 - 5.350 mIU/mL Final POCT Results (if applicable): Results for orders placed or performed during the hospital encounter of 01/31/21 CBC (No Diff) Specimen: Blood Result Value Ref Range WBC 6.50 3.40 - 10.80 10*3/mm3 RBC 4.65 3.77 - 5.28 10*6/mm3 Hemoglobin 13.2 12.0 - 15.9 g/dL Hematocrit 41.1 34.0 - 46.6 % MCV 88.4 79.0 - 97.0 fL MCH 28.4 26.6 - 33.0 pg MCHC 32.1 31.5 - 35.7 g/dL RDW 12.3 12.3 - 15.4 % RDW-SD 39.6 37.0 - 54.0 fl MPV 9.9 6.0 - 12.0 fL Platelets 336 140 - 450 10*3/mm3 Basic Metabolic Panel Specimen: Blood Result Value Ref Range Glucose 107 (H) 65 - 99 mg/dL BUN 15 8 - 23 mg/dL Creatinine 0.88 0.57 - 1.00 mg/dL Sodium 139 136 - 145 mmol/L Potassium 4.5 3.5 - 5.2 mmol/L Chloride 103 98 - 107 mmol/L CO2 25.0 22.0 - 29.0 mmol/L Calcium 9.4 8.6 - 10.5 mg/dL eGFR Non Amer 63 >60 mL/min/1.73 BUN/Creatinine Ratio 17.0 7.0 - 25.0 Anion Gap 11.0 5.0 - 15.0 mmol/L POC Creatinine Specimen: Blood Result Value Ref Range Creatinine 0.80 0.60 - 1.30 mg/dL Imaging: No valid procedures specified. Measures: Advanced Care Planning: Patient does not have an advance directive, information provided. Assessment / Plan Assessment/Plan: Diagnoses and all orders for this visit: 1. History of Takotsubo cardiomyopathy (Primary) - proBNP; Future - proBNP Asymptomatic, last exacerbation 2015, last echocardiogram 2017 with normal EF. Followed regularly by Dr. Diego. Continue current regimen, including beta- gail, ARB, and Imdur. Advise of any ongoing significant concerns. 2. Premature ventricular contractions (PVCs) (VPCs) Has a loop monitor in place. Rarely has a sense of palpitation. Has not been notified regarding anyabnormalities from monitoring. 3. Prediabetes - MicroAlbumin, Urine, Random - Urine, Clean Catch; Future - Urinalysis With Culture If Indicated -; Future - Hemoglobin A1c; Future - Lipid Panel; Future - Lipid Panel - Hemoglobin A1c - Urinalysis With Culture If Indicated - Urine, Clean Catch - MicroAlbumin, Urine, Random - Urine, Clean Catch Discussed healthy lifestyle with diet and exercise. Update testing. On ARB. 4. Essential hypertension - Comprehensive Metabolic Panel; Future - Urinalysis With Culture If Indicated -; Future - Lipid Panel; Future - Lipid Panel - Urinalysis With Culture If Indicated - Urine, Clean Catch - Comprehensive Metabolic Panel Stage II acutely, documenting excellent control at home continuing current regimen. 5. DONNA (obstructive sleep apnea) Noncompliant with monitor given increase in subjective dyspnea. 6. Need for hepatitis C screening test - Hepatitis C Antibody; Future - Hepatitis C Antibody Check recommended screen. 7. Screening mammogram for breast cancer - Mammo Screening Bilateral With CAD; Future Check screen. 8. Screening for osteoporosis - DEXA Bone Density Axial; Future Check screen. 9. Osteopenia, unspecified location - DEXA Bone Density Axial; Future 10. Systolic congestive heart failure, unspecified HF chronicity (HCC) - proBNP; Future - proBNP Currently asymptomatic with history of Takotsubo cardiomyopathy most recent flareup 2016. Check proBNP. 11. Other specified disorders of bone density and structure, multiple sites - DEXA Bone Density Axial; Future 12. Situational anxiety - ALPRAZolam (XANAX) 0.25 MG tablet; Take 1 tablet by mouth 2 (Two) Times a Day As Needed for Anxiety. Dispense: 10 tablet; Refill: 0 Difficulties situational triggered by occasional palpitation or atypical chest pain. Low-dose alprazolam given which patient uses very sporadically. 13. Personal history of COVID-19 Having some lingering fatigue which is improving, consistent with long COVID syndrome. Observation. 14. Need for prophylactic vaccination and inoculation against influenza - Fluzone High-Dose 65+yrs High-dose flu vaccine given today. Follow Up: Return in about 3 months (around 10/21/2022) for Medicare Subsq., Labs today. At [facility], we believe that sharing information builds trust and better relationships. You are receiving this note because you recently visited [facility]. It is possible you will see health information before a provider has talked with you about it. This kind of information can be easy to misunderstand. To help you fully understand what it means for your health, we urge you to discussthis note with your provider. Zach Foote MD [facility] * Ceci Lowery MA - 07/22/2022 8:30 AM EDT Venipuncture Blood Specimen Collection Venipuncture performed in right arm by Ceci Lowery MA with good hemostasis. Patient tolerated the procedure well without complications. 07/22/22 Ceci Lowery MA documented in this encounter Plan of Treatment Upcoming Encounters Date Type Department Care Team (Late st Contact Info) Description 12/22/2024 9:50 AM EST Office Visit [facility] [address] [facility] [address] [place] [address] Go Zazueta MD [address] [facility] [address] [place] [address] 01/15/2025 9:45 AM EDT Office Visit [facility] [address] [facility] [address] [place] [phone] Joy Skinner APRN [address] [facility] [address] [place] [address] documented as of this encounter Procedures Procedure Name Priority Date/Time Associated Diagnosis Comments PROBNP Routine 07/22/2022 9:23 AM EDT History of Takotsubo cardiomyopathy Systolic congestive heart failure, unspecified HF chronicity CONV URINE CULTURE, COMPREHENSIVE Routine 07/22/2022 9:23 AM EDT ~MICROSCOPIC EXAMINATION Routine 07/22/2022 9:23 AM EDT URINALYSIS W/ CULTURE IF INDICATED Routine 07/22/2022 9:23 AM EDT Essential hypertension Prediabetes HEPATITIS C ANTIBODY Routine 07/22/2022 9:23 AM EDT Need for hepatitis C screening test MICROALBUMIN, URINE, RANDOM Routine 07/22/2022 9:23 AM EDT Prediabetes HEMOGLOBIN A1C Routine 07/22/2022 9:23 AM EDT Prediabetes LIPID PANEL Routine 07/22/2022 9:23 AM EDT Essential hypertension Prediabetes COMPREHENSIVE METABOLIC PANEL Routine 07/22/2022 9:23 AM EDT Essential hypertension documented in this encounter Results * (ABNORMAL) Urine culture, Comprehensive - , (07/22/2022 9:23 AM EDT) Urine Culture Final report(A) [facility] Result 1 Klebsiella pneumoniae(A) [facility] Comment: Cefazolin <=4 ug/mL Cefazolin with an MAYELIN <=16 predicts susceptibility to the oral agents cefaclor, cefdinir, cefpodoxime, cefprozil, cefuroxime, cephalexin, and loracarbef when used for therapy of uncomplicated urinary tract infections due to E. coli, Klebsiella pneumoniae, and Proteus mirabilis. Greater than 100,000 colony forming units per mL Susceptibility Testing Comment [facility] Comment: ? S = Susceptible; I = Intermediate; R = Resistant ? P = Positive; N = Negative ?MICS are expressed in micrograms per mL ?? Antibiotic ? RSLT#1 ?RSLT#2 ?RSLT#3 ?RSLT#4 Amoxicillin/Clavulanic Acid ?S Ampicillin ? R Cefepime ? S Ceftriaxone ?S Cefuroxime ? S Ciprofloxacin ?S Ertapenem ?S Gentamicin ? S Imipenem ? S Levofloxacin ? S Meropenem ?S Nitrofurantoin ? R Piperacillin/Tazobactam ?S Tetracycline ? S Tobramycin ? S Trimethoprim/Sulfa ? S 07/22/2022 9:23 AM EDT 07/22/2022 Comment:Urine Narrative [facility] (AMBULATORY) - 07/27/2022 5:06 PM EDT Performed at: ??01 - [address] ??[id number] Underground Miner: Arun Tenorio PhD, Phone: ??[phone] us Zach Foote MD MICROBIOLOGY - GENERAL ORDERAB LES Final Result [facility] (AMBULATORY) [address] [place] [address], [facility] [address] [place] [address], * Microscopic Examination - (07/22/2022 9:23 AM EDT) WBC, UA 0-5 0 - 5 /hpf [facility] RBC, UA None seen 0 - 2 /hpf [facility] Epithelial Cells (non renal) 0-10 0 - 10 /hpf [facility] Casts None seen None seen /lpf [facility] Bacteria, UA None seen None seen/Few [facility] 07/22/2022 9:23 AM EDT 07/22/2022 Comment:Urine Narrative [email or web address] ([facility]) - 07/27/2022 5:06 PM EDT Performed at: ??01 - [facility] ??[id number] Underground Miner: Arun Tenorio PhD, Phone: ??[phone] Zach Foote MD URINE ORDERABLES Final Result [email or web address] ([facility]) [address] [place] [address], [place] [phone] [facility] [address] [place] [address], [place] [phone] * (ABNORMAL) Lipid Panel (07/22/2022 9:23 AM EDT) Total Cholesterol 230(H) 100 - 199 mg/dL [facility] Triglycerides 177(H) 0 - 149 mg/dL [facility] HDL Cholesterol 54 >39 mg/dL [facility] VLDL Cholesterol Harsh 32 5 - 40 mg/dL [facility] LDL Chol Calc (NIH) 144(H) 0 - 99 mg/dL [facility] Blood Structure of right upper limb / Unknown 07/22/2022 9:23 AM EDT 07/22/2022 Comment:Blood Release to pat i Narrative [email or web address] ([facility]) - 07/23/2022 9:07 AM EDT Performed at: ??01 - [facility] [address] ??[id number] Underground Miner: Arun Tenorio PhD, Phone: ??[phone] Zach Foote MD LAB BLOOD ORDERABLES Final Res ult Performing Organization Address City/[facility]/ZIP Co de Phone Number [facility] [address] [place] [address], [facility] [address] [place] [address], [place] [phone] * Hepatitis C Antibody (07/22/2022 9:23 AM [...] support the diagnosis of acute HCV infection. [facility] Hepatitis C Virus (HCV) RNA, Diagnosis, CORDELL (242719) and Hepatitis C Virus (HCV) Antibody with reflex to Quantitative Real-time PCR ([id number]). Blood Structure of right upper limb / Unknown 07/22/2022 9:23 AM EDT 07/22/2022 Comment:Blood Release to pat i Narrative [facility] (AMBUL[facility]ORY) - 07/23/2022 9:07 AM EDT Performed at: ??01 - [facility] [address] [facility], [place], [place] ??[id number] Underground Miner: Arun Tenorio PhD, Phone: ??[phone] Zach Foote MD LAB BLOOD ORDERABLES Final Res ult Performing Organization Address City/[facility]/ZIP Co de Phone Number [facility] [address] [place] [address], [place] [phone] [facility] [address] [place] [address], * (ABNORMAL) Hemoglobin A1c (07/22/2022 9:23 AM EDT) [facility] Hemoglobin A1C 5.9(H) 4.8 - 5.6 % [facility] Comment: ? Prediabetes: 5.7 - 6.4 ? Diabetes: >6.4 ? Glycemic control for adults with diabetes: <7.0 Blood Structure of right upper limb / Unknown 07/22/2022 9:23 AM EDT 07/22/2022 Comment:Blood Release to [facility] tiki Armijo [facility] (AMBULATORY) - 07/23/2022 9:07 AM EDT Performed at: ??01 - [facility] [address] [place] [address] ??[id number] Underground Miner: Arun Tenorio PhD, Phone: ??[phone] us Zach Foote MD LAB BLOOD ORDERABLES Final Res ult [facility] (AMBUL[facility]) [address] [place] [address], [place] [phone] [facility] [address] [place] [address], [place] [phone] * (ABNORMAL) Urinalysis With Culture If Indicated - Urine, Clean Catch (07/22/2022 9:23 AM EDT) [facility] Specific [place], UA 1.011 1.005 - 1.030 [facility] pH, UA 6.0 5.0 - 7.5 [facility] Color, UA Yellow Yellow [facility] Appearance, UA Clear Clear [facility] Leukocytes, UA 1+(A) Negative [facility] Protein Negative Negative/Tra ce [facility] Glucose, UA Negative Negative [facility] Ketones Negative Negative [facility] Blood, UA Negative Negative [facility] Bilirubin, UA Negative Negative [facility] Urobilinogen, UA 0.2 0.2 - 1.0 mg/dL [facility] Nitrite, UA Negative Negative [facility] Microscopic Examination See below: [facility] Comment:Microscopic was kevin cated and was performed. Urinalysis Reflex Comment [facility] Comment:This specimen has re flexed to a Urine Culture. Urine Urine specimen obtained by clean catch procedure / Unknown 07/22/2022 9:23 AM EDT 07/22/2022 Comment:Urine Narrative [facility] (AMBULATORY) - 07/27/2022 5:06 PM EDT Performed at: ??01 - [address] ??[id number] Underground Miner: Arun Tenorio PhD, Phone: ??[phone] Zach Foote MD URINE ORDERABLES Final Result Performing Organization Address [facility] Co de Phone Number [facility] (AMBULATORY) [address] [place] [address], [place] [phone] [facility] [address] [place] [address], [place] [phone] * MicroAlbumin, Urine, Random - Urine, Clean Catch (07/22/2022 9:23 AM EDT) Microalbumin, Urine 3.7 Not Estab. ug/mL [facility] Urine Urine specimen obtained by clean catch procedure / Unknown 07/22/2022 9:23 AM EDT 07/22/2022 Comment:Urine Narrative [facility]) - 07/27/2022 5:06 PM EDT Performed at: ?? - [address] ??[id number] Underground Miner: Arun Tenorio PhD, Phone: ??[phone] us Zach Foote MD URINE ORDERABLES Final Result Performing Organization Address [facility] Co de Phone Number [facility] (AMBULATORY) [address] [place] [address], [place] [phone] [facility] [address] [place] [address], * proBNP (07/22/2022 9:23 AM EDT) proBNP 83 0 - 301 pg/mL [facility] Comment: The following cut-points have been suggested for the use of proBNP for the diagnostic evaluation of heart failure (HF) in patients with acute dyspnea: Modality ? Age ? Optimal Cut ? (years) ?Point Diagnosis (rule in HF) ?<50 ?450 pg/mL ?50 - 75 ?900 pg/mL ?>75 ? 1800 pg/mL Exclusion (rule out HF) ??Age independent ? 300 pg/mL Blood Structure of right upper limb / Unknown 07/22/2022 9:23 AM EDT 07/22/2022 Comment:Blood Release to blake Armijo [facility] - 07/23/2022 9:07 AM EDT Performed at: ??01 - [facility] [address] [facility], [place], [place] ??[id number] Underground Miner: Arun Tenorio PhD, Phone: ??[phone] us Zach Foote MD LAB BLOOD ORDERABLES Final Res ult [facility] [address] [place] [address], [facility] [address] [place] [address], * (ABNORMAL) Comprehensive Metabolic Panel (07/22/2022 9:23 AM EDT) Glucose 116(H) 65 - 99 mg/dL [facility] Comment: ? Effective July 27, 2022 Glucose reference ? interval will be changing to: ?70 - 99 BUN 13 8 - 27 mg/dL [facility] Creatinine 0.76 0.57 - 1.00 mg/dL [facility] EGFR Result 82 >59 mL/min/1.7 3 [facility] BUN/Creatinine Ratio 17 12 - 28 [facility] Sodium 138 134 - 144 mmol/L [facility] Potassium 4.0 3.5 - 5.2 mmol/L [facility] Chloride 98 96 - 106 mmol/L [facility] Total CO2 25 20 - 29 mmol/L [facility] Calcium 10.0 8.7 - 10.3 mg/dL [facility] Total Protein 7.3 6.0 - 8.5 g/dL [facility] Albumin 4.9(H) 3.7 - 4.7 g/dL [facility] Globulin 2.4 1.5 - 4.5 g/dL [facility] A/G Ratio 2.0 1.2 - 2.2 [facility] Total Bilirubin 0.6 0.0 - 1.2 mg/dL [facility] Alkaline Phosphatase 87 44 - 121 IU/L [facility] AST (SGOT) 18 0 - 40 IU/L [facility] ALT (SGPT) 17 0 - 32 IU/L [facility] Blood Structure of right upper limb / Unknown 07/22/2022 9:23 AM EDT 07/22/2022 Comment:Blood Release to blake Armijo [facility] ([facility]) - 07/23/2022 9:07 AM EDT Performed at: ??01 - [facility] [address] [facility], [place], [place] ??[id number] Underground Miner: Arun Tenorio PhD, Phone: ??[phone] us Zach Foote MD LAB BLOOD ORDERABLES Final Res ult [facility] ([facility]) [address] [place] [address], [place] [phone] [facility] [address] [place] [address], [place] [phone] documented in this encounter Visit Diagnoses Diagnosis History of Takotsubo cardiomyopathy- Primary Takotsubo syndrome Premature ventricular contractions (PVCs) (VPCs) Other premature beats Prediabetes Other abnormal glucose Essential hypertension Unspecified essential hypertension DONNA (obstructive sleep apnea) Obstructive sleep apnea (adult) (pediatric) Need for hepatitis C screening test Special screening examination for other specified viral diseases Screening mammogram for breast cancer Screening for osteoporosis Special screening for osteoporosis Osteopenia, unspecified location Systolic congestive heart failure, unspecified HF chronicity Other specified disorders of bone density and structure, multiple sites Situational anxiety Personal history of COVID-19 Need for prophylactic vaccination and inoculation against influenza documented in this encounter Care Teams Networking Technician Relationship Specialty Start Date End Date Nurys Curtis, GENERAL SCIENCE TEACHER [address] [place], [place] [id number] PCP - General Family Medicine 07/22/22 12/20/22 documented as of this encounter
--- OUTSIDE RECORDS SUMMARY | 2024-10-02 13:10 | XMS_ITS | Encounter Summary ---
[facility] Address [address] [place] [address] Care Team Providers Care Manufacture Specialist Name Role Phone Davis Foote MD Primary Care Provider [phone] Reason for Visit * Reason Comments Med Refill Encounter Details Date Type Department Care Team (Late st Contact Info) Description 07/15/2022 Refill [facility] C[facility] [address] [facility] [address] [place] [phone] Abebe Diego MD [address] [facility] [address] [place], [place] [id number] Med Refill Social History Tobacco Use Types [...] [facility] [address] [facility] [address] [place] [address] Go Zazueta MD [address] [facility] [address] [place], [place] [id number] 01/15/2025 9:45 AM EDT Office Visit [facility] [address] [place] [address] Joy Skinner APRN [address] [place] [address] documented as of this encounter Visit Diagnoses Not on filedocumented in this encounter Care Teams Manufacture Specialist Relationship Specialty Start Date End Date Davis Foote MD [address] [place] [address] PCP - General 09/18/15 07/21/22 documented as of this encounter
--- OUTSIDE RECORDS SUMMARY | 2024-10-02 13:10 | XMS_ITS | Encounter Summary ---
[facility] Address [address] [place] [address] Care Team Providers Care Communications Billing Analyst Name Role Phone Davis Fooet MD Primary Care Provider [phone] Reason for Visit * Reason Comments Wound Check Encounter Details Date Type Department Care Team (Late st Contact Info) Description 02/05/2021 10:30 AM EDT Office Visit [facility] CARDIOLOGY [address] [place] [address] Abebe Diego MD [address] [facility] [address] [place] [address] Atrial tachycardia (Primary Dx); Rapid palpitations Social History Tobacco Use Types [...] Pressure - - Pulse - - Temperature 36.6 ??C (97.9 ??F) 02/06/2021 12:02 PM E DT Respiratory Rate - - Oxygen Saturation - - Inhaled Oxygen Concentration - - Weight - - Height - - Body Mass Index - - documented in this encounter Progress Notes * Grisel Irwni, RN - 02/05/2021 10:30 AM EDT Loop Insertion wound checked, Tegaderm and steri strips removed. Scant serosanguinous drainage. Bandage placed to protect clothing. Patient tolerated well. documented in this encounter Plan of Treatment Upcoming Encounters Date Type Department Care Team (Late st Contact Info) Description 12/22/2024 9:50 AM EST Office Visit [facility] [address] [facility] [address] [place] [address] Go Zazueta MD [address] [facility] [address] [place] [address] 01/15/2025 9:45 AM EDT Office Visit [facility] C[facility] [address] [facility] [address] [place] [address] Joy Skinner APRN [address] [facility] [address] [place], [place] [id number] documented as of this encounter Visit Diagnoses Diagnosis Atrial tachycardia- Primary Other specified cardiac dysrhythmias Rapid palpitations Palpitations documented in this encounter Care Teams Communications Billing Analyst Relationship Specialty Start Date End Date Davis Foote MD [address] [place] [address] [place] [address] PCP - General 09/18/15 07/21/22 documented as of this encounter
--- OUTSIDE RECORDS SUMMARY | 2024-10-02 13:10 | XMS_ITS | Encounter Summary ---
[facility] Address [address] [place] [address] Care Team Providers Care Patrol Conductor Name Role Phone Davis Foote MD Primary Care Provider [phone] Reason for Visit * Reason Comments History of Takotsubo cardiomypathy Encounter Details Date Type Department Care Team (Late st Contact Info) Description 12/15/2021 10:30 AM EST Office Visit [facility] [address] [place] [phone] Abebe Diego MD [address] [facility] [address] [place] [address] History of Takotsubo cardiomyopathy (Primary Dx); Essential [...] Sign Reading Time Taken Comments Blood Pressure 134/70 12/15/2021 10:23 AM EST Pulse 61 12/15/2021 10:23 AM EST Temperature - - Respiratory Rate - - Oxygen Saturation 99% 12/15/2021 10:23 AM EST Inhaled Oxygen Concentration - - Weight 79.8 kg (176 lb) 12/15/2021 10:23 AM EST Height 167.6 cm (5' 6 ) 12/15/2021 10:23 AM EST Body Mass Index 28.41 12/15/2021 10:23 AM EST documented in this encounter Progress Notes * Abebe Diego MD - 12/15/2021 10:30 AM ESTAssociated Order(s): ECG 12 Lead Post-Procedure Diagnose(s): Takotsubo cardiomyopathy; Rapid palpitations [facility] Cardiology Subjective: Encounter Date: 12/15/2021 Patient ID: Rachael Fleming is a 76 y.o. female. Chief Complaint: History of Takotsubo cardiomypathy PROBLEM LIST: 1. Takotsubo cardiomyopathy, 3 known episodes (1996, 2007, 2015): a. Initial diagnosis??(1996)??with subsequent recovery. b. [facility],??08/1997: Normal EF. Normal coronary arteries. c. Recurrence with diagnosis of Takotsubo syndrome??(2007)??at the [facility]. d. [facility],??06/2008: EF 20%. No significant coronary artery disease.?? e. Echocardiogram,??01/2009: EF??55%. f. [facility],??10/26/2016:??EF 20%.??Takotsubo/stress-induced cardiomyopathy with severe LV systolic dysfunction.??Near normal coronary arteries. g. Echocardiogram,??10/28/2016: EF 41%.??Findings consistent with stress-induced (Takotsubo) cardiomyopathy.??Mild MR, mild TR.?? h. Echocardiogram, 12/21/2016: EF normalized at 55%. Normal valves. i. Echocardiogram, 06/04/2017: EF 55%. Normal valves. j. Echocardiogram, 09/29/2017: EF 65%. Normal valves. k. 2018, evaluated at [facility] 2. Recurrent palpitations/tachyarrhythmias: a. Normal Holter??(10/2011). b. [...] a follow up with a history of Takotsubo cardiomyopathy, palpitations, and cardiac risk factors. Since last visit, patient has had a few episodes of palpitations,light-headedness, and chest pain which she reports on her loop monitor. Symptoms are sometimes exacerbated when doing housework like sweeping but improves with rest. Dr. Foote discontinued amlodipine due to hypotension and told her to hold HCTZ in the morning if her blood pressure is less than 115/70. Patient denies shortness of breath, edema, and syncope. Allergies Allergen Reactions ??? Penicillins [...] (0.5 tablet PRN)., Disp: , Rfl: ??? aspirin 81 MG [...] TIMES A DAY, Disp: 180 tablet, Rfl: 3 ??? loratadine (CLARITIN) 10 MG tablet, Take 10 mg by mouth Daily., Disp: , Rfl: ??? losartan (COZAAR) 50 MG tablet, 25 [...] puff, Inhalation, Q4H PRN, Kushal Silverman, BO The following portions of the patient's history were reviewed and updated as appropriate: allergies, current medications, past family history, past medical history, past social history, past surgicalhistory and problem list. Review of Systems Constitutional: Negative. Cardiovascular: Positive for chest pain and palpitations. Negative for dyspnea on exertion, leg swelling and syncope. Respiratory: Negative. Negative for shortness of breath. Hematologic/Lymphatic: Negative for bleeding problem. Does not bruise/bleed easily. Skin: Negative for rash. Musculoskeletal: Negative for muscle weakness and myalgias. Gastrointestinal: Negative for heartburn, nausea and vomiting. Neurological: Positive for light-headedness. Negative for loss of balance and numbness. Objective: Vitals: 02/14/22 1023 BP: 134/70 BP Location: Left arm Patient Position: Sitting Pulse: 61 SpO2: 99% Weight: 79.8 kg (176 lb) Height: 167.6 cm (66 ) Constitutional: [...] Review: Lab Results Component Value Date GLUCOSE 107 (H) 01/31/2021 BUN 15 01/31/2021 CREATININE 0.80 01/31/2021 EGFRIFNONA 63 01/31/2021 BCR 17.0 01/31/2021 K 4.5 01/31/2021 CO2 25.0 01/31/2021 CALCIUM 9.4 01/31/2021 Lab Results Component Value Date WBC 6.50 01/31/2021 RBC 4.65 01/31/2021 HGB 13.2 01/31/2021 HCT 41.1 01/31/2021 MCV 88.4 01/31/2021 PLT 336 01/31/2021 ECG 12 Lead Date/Time: 12/15/2021 11:16 AM Performed by: Abebe Diego MD Authorized by: Abebe Diego MD Comparison: compared with previous ECG from 10/16/2020 Comparison to previous ECG: NSR, could not r/o anterior infarct (no longer present) Rhythm: sinus rhythm BPM: 62 Clinical impression: normal ECG Assessment: Diagnoses and all orders for this visit: 1. History of Takotsubo cardiomyopathy (Primary) 2. Essential hypertension 3. Rapid palpitations Impression: 1. Hx Takotsubo cardiomyopathy. Stable. On carvedilol. 2. Hypertension. Overall well controlled, sometimes borderline hypotensive; pt may hold losartan and/or HCTZ when BP is low. Continue carvedilol. 3. Palpitations. Recurrent episodes consistent with benign findings on loop monitor. Plan: 1. Stable cardiac status. 2. Continue current medications. 3. Revisit in 12 MO, or sooner as needed. Scribed for Abebe Diego MD by Olive Rowe. 12/15/2021 10:59 EST Abebe Diego MD Please note that [...] [facility] [address] [place] [address] Go Zazueta MD [address] [facility] [address] [place] [address] 01/15/2025 9:45 AM EDT Office Visit [facility] [address] [facility] [address] [place] [address] Joy Skinner APRN [address] [facility] [address] [place], [place] [id number] documented as of this encounter Procedures Procedure Name Priority Date/Time Associated Diagnosis Comments ECG 12-LEAD Routine 12/15/2021 History of Takotsubo cardiomyopathy Rapid palpitations documented in this encounter Results * ECG 12-LEAD (12/15/2021) Narrative 12/15/2021 Abebe Diego MD ? 12/15/2021 11:20 AM ECG 12 Lead Date/Time: 12/15/2021 11:16 AM Performed by: Abebe Diego MD Authorized by: Abebe Diego MD Comparison: compared with previous ECG from 10/16/2020 Comparison to previous ECG: NSR, could not r/o anterior infarct (no longer present) Rhythm: sinus rhythm BPM: 62 Clinical impression: normal ECG Procedure Note Abebe Diego MD - 12/15/2021 10:30 AM EST [facility] Cardiology Subjective: Encounter Date: 12/15/2021 Patient ID: Rachael Fleming is a 76 y.o. female. Chief Complaint: History of Takotsubo cardiomypathy PROBLEM LIST: 1. Takotsubo cardiomyopathy, 3 known episodes (1996, 2007, 2015): a. Initial diagnosis??(1996)??with subsequent recovery. b. [facility],??08/1997: Normal EF. Normal coronary arteries. c. Recurrence with diagnosis of Takotsubo syndrome??(2007)??at the [facility]. d. [facility],??06/2008: EF 20%. No significant coronary artery disease.?? e. Echocardiogram,??01/2009: EF??55%. f. [facility],??10/26/2016:??EF 20%.??Takotsubo/stress-induced cardiomyopathy withsevere LV systolic dysfunction.??Near normal coronary arteries. g. Echocardiogram,??10/28/2016: EF 41%.??Findings consistent withstress-induced (Takotsubo) cardiomyopathy.??Mild MR, mild TR.?? h. Echocardiogram, 12/21/2016: EF normalized at 55%. Normal valves. i. Echocardiogram, 06/04/2017: EF 55%. Normal valves. j. Echocardiogram, 09/29/2017: EF 65%. Normal valves. k. 2018, evaluated at [facility] 2. Recurrent palpitations/tachyarrhythmias: a. Normal Holter??(10/2011). b. Event recorder shows atrial tachycardia at 145 bpm, which issymptomatic. c. Recurrent episode??(06/2017). d. Bilateral carotid duplex,??08/30/2017: GEORGE 0-49%, LICA 0-49%. e. Holter monitor-14 days,??10/22/2017: Essentially normal Holterreadings.?No significant arrhythmia.?? f. 30 day event monitor, 12/22/2017: No Afib. No pauses. 1% PVCs. HR [id number] bpm, average 68 bpm. g. 11/2020 Monitor [...] for a follow up with a history ofTakotsubo cardiomyopathy, palpitations, and cardiac risk factors. Sincelast visit, patient has had a few episodes of palpitations,light-headedness, and chest pain which she reports on her loop monitor.Symptoms are sometimes exacerbated when doing housework like sweeping butimproves with rest. Dr. Foote discontinued amlodipine due to hypotensionand told her to hold HCTZ in the morning if her blood pressure is lessthan 115/70. Patient denies shortness of breath, edema, and syncope. Allergies Allergen Reactions ? ? Penicillins Hives ? ? Phenergan [Promethazine Hcl] Hives ? ? Statins Myalgia ? ? Sudafed [Pseudoephedrine Hcl] Rash ? ? Sulfa Antibiotics Rash Current Outpatient Medications: ? ? albuterol sulfate HFA 108 (90 Base) MCG/ACT inhaler, Inhale 2 puffsEvery 4 (Four) Hours As Needed for Wheezing., Disp: , Rfl: ? ? ALPRAZolam (XANAX) 0.25 MG tablet, Take 0.25 mg by mouth At Night AsNeeded for Anxiety (0.5 tablet PRN)., Disp: , Rfl: ? ? aspirin 81 MG EC tablet, Take 81 mg by mouth Daily., Disp: , Rfl: ? ? carvedilol (COREG) 3.125 MG tablet, Take 1 tablet by mouth 2 (Two)Times a Day With Meals., Disp: 180 tablet, Rfl: 3 ? ? Cholecalciferol (Vitamin D3) 50 MCG (2000 UT) tablet, Take 1 tablet bymouth Daily., Disp: , Rfl: ? ? fluticasone (FLONASE) 50 MCG/ACT nasal spray, , Disp: , Rfl: ? ? hydroCHLOROthiazide (MICROZIDE) 12.5 MG capsule, , Disp: , Rfl: ? ? isosorbide mononitrate (IMDUR) 30 MG 24 hr tablet, TAKE ONE TABLET BYMOUTH 2 TIMES A DAY, Disp: 180 tablet, Rfl: 3 ? ? loratadine (CLARITIN) 10 MG tablet, Take 10 mg by mouth Daily., Disp: ,Rfl: ? ? losartan (COZAAR) 50 MG tablet, 25 mg., Disp: , Rfl: ? ? nitroglycerin (Nitrostat) 0.4 MG SL tablet, Place 1 tablet under thetongue Every 5 (Five) Minutes As Needed for Chest Pain. Take no more than3 doses in 15 minutes., Disp: 25 tablet, Rfl: 5 ? ? omeprazole (priLOSEC) 40 MG capsule, take 1 capsule by mouth once daily(Patient taking differently: Take 40 mg by mouth Daily.), Disp: 1 capsule,Rfl: 3 ? ? zolpidem (AMBIEN) 5 MG tablet, , Disp: , Rfl: Current Facility-Administered Medications: ? ? albuterol (PROVENTIL HFA;VENTOLIN HFA) inhaler 2 puff, 2 puff,Inhalation, Q4H PRN, Kushal Silverman APRN The following portions of the patient's history were reviewed and updatedas appropriate: allergies, current medications, past family history, pastmedical history, past social history, past surgical history and problemlist. Review of Systems Constitutional: Negative. Cardiovascular: Positive for chest pain and palpitations. Negative fordyspnea on exertion, leg swelling and syncope. Respiratory: Negative. Negative for shortness of breath. Hematologic/Lymphatic: Negative for bleeding problem. Does notbruise/bleed easily. Skin: Negative for rash. Musculoskeletal: Negative for muscle weakness and myalgias. Gastrointestinal: Negative for heartburn, nausea and vomiting. Neurological: Positive for light-headedness. Negative for loss of balanceand numbness. Objective: Vitals: 12/15/21 1023 BP: 134/70 BP Location: Left arm Patient Position: Sitting Pulse: 61 SpO2: 99% Weight: 79.8 kg (176 lb) Height: 167.6 cm (66 ) Constitutional: [...] Review: Lab Results Component Value Date GLUCOSE 107 (H) 01/31/2021 BUN 15 01/31/2021 CREATININE 0.80 01/31/2021 EGFRIFNONA 63 01/31/2021 BCR 17.0 01/31/2021 K 4.5 01/31/2021 CO2 25.0 01/31/2021 CALCIUM 9.4 01/31/2021 Lab Results Component Value Date WBC 6.50 01/31/2021 RBC 4.65 01/31/2021 HGB 13.2 01/31/2021 HCT 41.1 01/31/2021 MCV 88.4 01/31/2021 PLT 336 01/31/2021 ECG 12 Lead Date/Time: 12/15/2021 11:16 AM Performed by: Abebe Diego MD Authorized by: Abebe Diego MD Comparison: compared with previous ECG from 10/16/2020 Comparison to previous ECG: NSR, could not r/o anterior infarct (no longerpresent) Rhythm: sinus rhythm BPM: 62 Clinical impression: normal ECG Assessment: Diagnoses and all orders for this visit: 1. History of Takotsubo cardiomyopathy (Primary) 2. Essential hypertension 3. Rapid palpitations Impression: 1. Hx Takotsubo cardiomyopathy. Stable. On carvedilol. 2. Hypertension. Overall well controlled, sometimes borderlinehypotensive; pt may hold losartan and/or HCTZ when BP is low. Continuecarvedilol. 3. Palpitations. Recurrent episodes consistent with benign findings onloop monitor. Plan: 1. Stable cardiac status. 2. Continue current medications. 3. Revisit in 12 MO, or sooner as needed. Scribed for Abebe Diego MD by Olive España 12/15/2021 10:59 EST Abebe Diego MD Please note that portions of this note may have been completed with avoice recognition program. Efforts were made to edit the dictations, butoccasionally words are mistranscribed. Abebe Diego MD ECG ORDERABLES Final Result documented in this encounter Visit Diagnoses Diagnosis History of Takotsubo cardiomyopathy- Primary Takotsubo syndrome Essential hypertension Unspecified essential hypertension Rapid palpitations Palpitations documented in this encounter Care Teams Patrol Conductor Relationship Specialty Start Date End Date Davis Foote MD [address] [place], [place] [id number] PCP - General 09/18/15 07/21/22 documented as of this encounter
--- OUTSIDE RECORDS SUMMARY | 2024-10-02 13:10 | XMS_ITS | Encounter Summary ---
Author Organization [facility] Address [address] [place] [address] Care Team Providers Care Assembler Motor Vehicle Name Role Phone Davis Foote MD Primary Care Provider [phone] Reason for Referral * Physical Therapy (Routine) - Closed Specialty Diagnoses / Procedures Referred By Contac t Referred To Contact Physical Therapy Diagnoses Nontraumatic complete tear of left rotator cuff Impingement syndrome of left shoulder Bursitis of left shoulder Ashwin Johnson MD [address] [place] [address] Phone: tel: fax: [address] [address] Phone: tel: fax: Referral ID Status Reason Start Date Expiration Date V isits Requested Visits Authorized [id number] Closed Specialty Services Required 03/11/2021 03/11/2022 1 1 Reason for Visit * Reason Comments Follow-up After MRI 03/11/2021 Encounter Details Date Type Department Care Team (Late st Contact Info) Description 03/11/2021 2:15 PM EDT Office Visit [facility] [address] [place] [address] Ashwin Johnson MD [address] [place] [address] Nontraumatic complete tear of left rotator cuff [...] Sign Reading Time Taken Comments Blood Pressure 134/72 03/11/2021 1:57 PM EDT Pulse 85 03/11/2021 1:57 PM EDT Temperature - - Respiratory Rate - - Oxygen Saturation - - Inhaled Oxygen Concentration - - Weight 79.3 kg (174 lb 13.2 oz) 03/11/2021 1:57 PM EDT Height 167.6 cm (5' 5.98 ) 03/11/2021 1:57 PM ED T Body Mass Index 28.23 03/11/2021 1:57 PM EDT documented in this encounter Progress Notes * Ashwin Johnson MD - 03/11/2021 2:15 PM EDT Images from the original note were not included. [facility] Orthopaedic Surgery Office Follow Up Office Follow Up Visit Patient Name: Rachael Fleming Chief Complaint: Chief Complaint Patient presents with ??? Left Shoulder - Follow-up After MRI 03/11/2021 Referring Physician: Davis Foote MD-I appreciate the referral from Dr. Foote. History of Present Illness: It has been 1 month(s) since Rachael Fleming's last visit. Rachael Fleming returns to clinic today for F/U: follow-up of leftBody Part: shoulderReason: pain. The issue has been ongoing for 1 year(s). Rachael Fleming rates HIS/HER: herpain at 6/10 on the pain scale. Previous/current treatments: physical therapy. Current symptoms:Symptoms: same as prior visit. The pain is worse with sleeping and working; resting improves the pain. Overall, he/she: sheis doing the same. I have reviewedthe patient's history of present illness as noted/entered above. I have reviewed the patient's past medical history, surgical history, social history, family history, medications, and allergies as noted in the electronic medical record and as noted/entered. I havereviewed the patient's review of systems as noted/enter and updated as noted in the patient's HPI Left shoulder Pain is the same PCP: Davis Foote MD ?? LEFT SHOULDER ?? Prior history: Prior [place] around 2016 -- Cardiology Dr. Diego Loop [...] 11/05/2016 ??? Takotsubo cardiomyopathy Initially diagnosed at [place] 2007. EF 20 at that time. 2009 [...] EXTRACTION, BILATERAL ??? HYSTERECTOMY enlarged uterus, bleeding, ~1999 Family History: Family History Problem Relation Age [...] problem list. Objective Objective Vital Signs: Vitals: 03/11/21 1357 BP: 134/72 Pulse: 85 Weight: 79.3 kg (174 lb 13.2 oz) Height: 167.6 cm (65.98 ) Ortho Exam: Left shoulder better strength noted on rotator cuff testing today, impingement syndrome noted, mildanterior pain, no skin changes, well-perfused, SLT intact Mask in place Results Review: Imaging Results (Last 24 Hours) No results found for the last 24 hours. MRI Shoulder Left Without Contrast Result Date: 03/11/2021 1. Moderate AC joint arthropathy and small [...] is appreciated here or elsewhere. E: 03/11/2021 I personally reviewed the left shoulder MRI completed 03/11/2021. Tendinopathy the infraspinatus with small partial articular sided tearing. Mild changes of the posterior superior labrum. Mild degenerative changes of the AC joint. Procedures LEFT SHOULDER SUBACROMIAL SPACE INJECTION: Risks [...] tolerated the procedure without difficulty. CPT CODE 34121 for major joint aspiration/injection Assessment / Plan [...] Physical Therapy Evaluate and treat, Ortho (Completed) Selective rest/activity modifications recommended while the shoulder recovers. Counseling - I counseled the patient on the diagnosis and treatment plan. All questions were answered. Corticosteroid injection - the risks and benefits for a steroid injection were discussed. The patient desired to proceed with an injection. I emphasized this is a short-term pain relief option and multiple steroid injections are generally avoided, but an injection can be helpful with pain relief while the shoulder recovers. Physical therapy prescription provided and scapular exercise program discussed - physical therapy will be very important to the patient's treatment and recovery. SHOULDER SUBACROMIAL SPACE INJECTION: Risks and benefits of a shoulder biceps subacromial space injection were discussed and the [...] lidocaine with aspiration prior to injection. The patienttolerated the procedure without difficulty. CPT CODE 14850 for major joint aspiration/injection Follow Up: 2 to 3 months pending progress possible repeat injection in the future if needed. Ashwin Johnson MD, FAAOS Orthopedic Surgeon Fellowship Trained Shoulder and Elbow Surgeon [facility] Medicine [address] [place] [address], [address] [place] [address]. [id number] 03/11/21 14:29 EDT Please note that portions of this note may have been completed with a voice recognition program. Efforts were made to edit the dictations, but occasionally words are mistranscribed. * Joy Gomez R.T.(R) - 03/11/2021 2:15 PM EDTAssociated Order(s): Large Joint Arthrocentesis: L glenohumeral Procedure Large Joint Arthrocentesis: L glenohumeral Date/Time: 03/11/2021 2:30 PM Consent given by: patient Site marked: site marked Timeout: Immediately prior to procedure a time out was called to verify the correct patient, procedure, equipment, technology support analyst and site/side marked as required Supporting Documentation Indications: pain Procedure Details Location: shoulder - L glenohumeral Preparation: Patient was prepped and draped in [...] Description 12/22/2024 9:50 AM EST Office Visit [facility] [address] [facility] [address] [place] [address] Go Zazueta MD [address] [facility] [address] [place], [place] [id number] 01/15/2025 9:45 AM EDT Office Visit [facility] [address] [facility] [address] [place] [phone] Joy Skinner APRN [address] [facility] [address] [place] [address] documented as of this encounter Procedures Procedure Name Priority Date/Time Associated Diagnosis Comments AL ARTHROCENTESIS ASPIR&/INJ MAJOR JT/BURSA W/O US Routine 03/11/2021 2:30 PM EDT Nontraumatic complete tear of left rotator cuff Impingement syndrome of left shoulder Bursitis of left shoulder documented in this encounter Results * AL ARTHROCENTESIS ASPIR&/INJ MAJOR JT/BURSA W/O US (03/11/2021 2:30 PM EDT) Narrative Joy Gomez R.T.(R) - 03/11/2021 2:30 PM EDT Joy Gomez R.T.(R) ? 03/11/2021 ??3:40 PM Large Joint Arthrocentesis: L glenohumeral Date/Time: 03/11/2021 2:30 PM Consent given by: patient Site marked: site marked Timeout: Immediately prior to procedure a time out was called to verify the correct patient, procedure, equipment, technology support analyst and site/side marked as required Supporting Documentation Indications: pain Procedure Details Location: shoulder - L glenohumeral Preparation: Patient was prepped and draped in the usual sterile fashion Needle size: 23 G Approach: posterior Medications administered: 5 mL lidocaine PF 1% 1 %; 80 mg methylPREDNISolone acetate 80 MG/ML Patient tolerance: patient tolerated the procedure well with no immediate complications us Ashwin Johnson MD PROCEDURE/MINOR SURGICAL ORDERABLES Final [...] mL 5 mL, One-Time Injection, Starting on Wed03/11/21 at 1430, For 1 doseIndications:Nontraumatic complete tear of left rotator cuff,Impingement syndrome of left shoulder,Bursitis of left shoulder Given 03/11/2021 2:30 PM EDT 5 mL methylPREDNISolone acetate (DEPO-medrol) injection 80 mg 80 mg, One-Time Injection, Starting on Wed03/11/21 at 1430, For 1 doseIndications:Nontraumatic complete tear of left rotator cuff,Impingement syndrome of left shoulder,Bursitis of left shoulder Given 03/11/2021 2:30 PM EDT 80 mg documented in this encounter Care Teams Assembler Motor Vehicle Relationship Specialty Start Date End Date Davis Foote MD [address] [place] [id number] PCP - General 09/18/15 07/21/22 documented as of this encounter
--- OUTSIDE RECORDS SUMMARY | 2024-10-02 13:11 | XMS_ITS | Encounter Summary ---
[facility] Address [address] [place] [address] Care Team Providers Care Orthodontic Technician Assistant Name Role Phone Davis Foote MD Primary Care Provider Encounter Details Date Type Department Care Team (Late Contact Info) Description 11/27/2020 9:30 AM EST Immunization [facility] COVID19 [facility] [address] [address] Social History Tobacco Use Types Packs/Day Years [...] [facility] [address] [facility] [address] [place] [address] Go Zazueta MD [address] [facility] [address] [place] [phone] 01/15/2025 9:45 AM EDT Office Visit [facility] [address] [facility] [address] [place] [address] Joy Skinner, STITCHING MACHINE SETTER [address] [place] [address] documented as of this encounter Visit Diagnoses Not on filedocumented in this encounter Care Teams Orthodontic Technician Assistant Relationship Specialty Start Date End Date Davis Foote MD [address] [place] [address] [place] [address] PCP - General 09/18/15 07/21/22 documented as of this encounter
--- OUTSIDE RECORDS SUMMARY | 2024-10-02 13:11 | XMS_ITS | Encounter Summary ---
[facility] Address [address] [place] [address] Care Team Providers Care President Finance Company Name Role Phone Davis Foote MD Primary Care Provider [phone] Reason for Visit * Reason Comments Med Refill Encounter Details Date Type Department Care Team (Late st Contact Info) Description 11/20/2019 Refill [facility] [address] [facility] [address] [place] [phone] Abebe Diego MD [address] [facility] [address] [place], [place] [phone] Med Refill Social History Tobacco Use Types [...] [facility] [address] [facility] [address] [place] [address] Go Zazueta MD [address] [facility] [address] [place], [place] [phone] 01/15/2025 9:45 AM EDT Office Visit [facility] [address] [place] [address] Joy Skinner APRN [address] [place] [address] documented as of this encounter Visit Diagnoses Not on filedocumented in this encounter Care Teams President Finance Company Relationship Specialty Start Date End Date Davis Foote MD [address] [place] [address] PCP - General 09/18/15 07/21/22 documented as of this encounter
--- OUTSIDE RECORDS SUMMARY | 2024-10-02 13:11 | XMS_ITS | Encounter Summary ---
[facility] Address [address] [place] [phone] Care Team Providers Care Line Manager Name Role Phone Davis Foote MD Primary Care Provider [phone] Encounter Details Date Type Department Care Team (Late st Contact Info) Description 10/16/2020 Telephone [facility] [address] [facility] [address] [place] [address] Abebe Diego MD [address] [facility] [address] [place] [address] Social History Tobacco Use Types Packs/Day Years [...] Telephone Encounter - Grisel Irwin RN - 10/16/2020 10:46 AM EST Patient called to report increasing frequency of feeling irregular heart beats and heart racing. She is going to attempt to get EKG at PCP, if not will come to [facility] office to get. documented in this encounter Plan of Treatment Upcoming Encounters Date Type Department Care Team (Late st Contact Info) Description 12/22/2024 9:50 AM EST Office Visit [facility] [address] [facility] [address] [place] [address] Go Zazueta MD [address] [facility] [address] [place], [place] [id number] 01/15/2025 9:45 AM EDT Office Visit [facility] C[facility] [address] [facility] [address] [place] [address] Joy Skinner APRN [address] [facility] [address] [facility] [address] [place] [id number] documented as of this encounter Visit Diagnoses Not on filedocumented in this encounter Care Teams Line Manager Relationship Specialty Start Date End Date Davis Foote MD [address] [place] [address] [place] [address] PCP - General 09/18/15 07/21/22 documented as of this encounter
--- OUTSIDE RECORDS SUMMARY | 2024-10-02 13:11 | XMS_ITS | Encounter Summary ---
[facility] [address] [place] [address] Care Team Providers Care Cavalry Scout Name Role Phone Davis Foote MD Primary Care Provider Reason for Visit * Reason Comments History of Takotsubo cardiomyopathy Hypertension Encounter Details Date Type Department Care Team (Late st Contact Info) Description 12/09/2020 1:30 PM EST Office Visit [facility] CARDIOLOGY [address] [place] [address] Luis Alfredo Skinner APRN [address] [facility] [address] [place] [address] Atrial tachycardia (Primary Dx); Takotsubo cardiomyopathy; Essential hypertension Social History Tobacco Use Types [...] Reading Time Taken Comments Blood Pressure 140/80 12/09/2020 1:12 PM EST Pulse 78 12/09/2020 1:12 PM EST Temperature 36.3 ??C (97.3 ??F) 12/09/2020 1:12 PM ES T Respiratory Rate - - Oxygen Saturation 97% 12/09/2020 1:12 PM EST Inhaled Oxygen Concentration - - Weight 81.1 kg (178 lb 12.8 oz) 12/09/2020 1:12 PM EST Height 167.6 cm (5' 6 ) 12/09/2020 1:12 PM EST Body Mass Index 28.86 12/09/2020 1:12 PM EST documented in this encounter Progress Notes * Luis Alfredo Skinner APRN - 12/09/2020 1:30 PM ESTAddended by: LUIS ALFREDO SKINNER on: 12/09/2020 03:15 PM Modules accepted: Orders * Luis Alfredo Skinner APRN - 12/09/2020 1:30 PM EST Subjective: Encounter Date:12/09/2020 Primary Care Physician: Davis Foote MD Patient ID: Rachael Fleming is a 75 y.o. female. Chief Complaint:History of Takotsubo cardiomyopathy and Hypertension PROBLEM LIST: 1. Takotsubo cardiomyopathy, 3 known episodes (1996, 2007, 2015): a. Initial diagnosis??(1996)??with subsequent recovery. b. [facility], 08/1997: Normal EF. Normal coronary arteries. c. Recurrence with diagnosis of Takotsubo syndrome??(2007)??at the [facility]. d. [facility], 06/2008: EF 20%. No significant coronary artery disease.?? e. Echocardiogram, 01/2009: EF??55%. f. [facility], 10/26/2016:??EF 20%.??Takotsubo/stress-induced cardiomyopathy with severe LV systolic dysfunction.??Near normal coronary arteries. g. Echocardiogram, 10/28/2016: EF 41%.??Findings consistent with stress-induced (Takotsubo) cardiomyopathy.??Mild MR, mild TR. h. Echocardiogram, 12/21/2016: EF normalized at 55%. Normal valves. i. Echocardiogram, 06/04/2017: EF 55%. Normal valves. j. Echocardiogram, 09/29/2017: EF 65%. Normal valves. k. 2018, evaluated at [facility] 2. Recurrent palpitations/tachyarrhythmias: a. Normal Holter??(10/2011). b. Event recorder shows atrial tachycardia at 145 bpm, which is symptomatic. c. Recurrent episode??(06/2017). d. Bilateral carotid duplex, 08/30/2017: GEORGE 0-49%, LICA 0-49%. e. Holter monitor-14 days, 10/22/2017: Essentially normal Holter readings.?No significant arrhythmia.?? f. [...] Meals., Disp: 180 tablet, Rfl: 3 ??? hydroCHLOROthiazide (MICROZIDE) 12.5 MG capsule, Take 1 capsule by mouth Daily., Disp: 30 capsule, Rfl: 11 ??? isosorbide mononitrate (IMDUR) 30 MG 24 hr tablet, Take 1 tablet by mouth 2 (Two) Times a Day.,Disp: 180 tablet, Rfl: 3 ??? losartan (COZAAR) 50 MG tablet, Take 1 tablet by mouth Daily., Disp: 30 tablet, Rfl: 11 ??? meclizine (ANTIVERT) 25 MG tablet, Take 1 tablet by mouth 3 (Three) Times a Day As Needed for dizziness. (Patient taking differently: Take 25 mg by mouth As Needed for dizziness.), Disp: 30 tablet, Rfl: 0 ??? nitroglycerin (Nitrostat) 0.4 MG SL tablet, Place 1 tablet under the tongue Every 5 (Five) Minutes As Needed for Chest Pain. Take no more than 3 doses in 15 minutes., Disp: 25 tablet, Rfl: 5 ??? omeprazole (priLOSEC) 40 MG capsule, take 1 capsule by mouth once daily, Disp: 1 capsule, Rfl: 3 ??? zolpidem (AMBIEN) 10 MG tablet, Take 5 mg by mouth At Night As Needed for sleep., Disp: , Rfl: Current Facility-Administered Medications: ??? albuterol (PROVENTIL HFA;VENTOLIN HFA) inhaler 2 puff, 2 puff, Inhalation, Q4H PRN, Kushal Silverman, BO History of Present Illness Patient is a 75-year-old female who we are seeing today for annual follow-up of Takot subo cardiomyopathy and palpitations. Patient denies any chest pain, pressure, tightness. Denies any increasing shortness of breath. No syncope, near-syncope, or edema. Patient reports some recurrent palpitations. Notes that she has had 2 or 3 severe episodes that make her feel weak and as if she is going to pass out. Our office was contacted and a monitor was placed. She notes that she did not have any of the severe episodes with the monitor in place. However, did have some mild brief episodes. States she has been compliant with her medications. She has not been checking her blood pressure at home. Has questions about resuming the combination pill of losartan/HCTZ versus her current 2 pill regimen. The following portions of the patient's history were reviewed and updated as appropriate: allergies, current medications, past family history, past medical history, past social history, past surgicalhistory and problem list. Social History Tobacco Use ??? Smoking status: Never Smoker ??? Smokeless tobacco: Never Used Substance Use Topics ??? Alcohol use: No ??? Drug use: No Review of Systems Constitution: Positive for malaise/fatigue. Cardiovascular: Positive for palpitations. Negative for chest pain, dyspnea on exertion, leg swelling and syncope. Respiratory: Negative. Negative for shortness of breath. Hematologic/Lymphatic: Negative for bleeding problem. Does not bruise/bleed easily. Skin: Negative for rash. Musculoskeletal: Negative for muscle weakness and myalgias. Gastrointestinal: Negative for heartburn, nausea and vomiting. Neurological: Negative for dizziness, light-headedness, loss of balance and numbness. Objective: BP 140/80 (BP Location: Left arm, Patient Position: Sitting) Pulse 78 Temp 97.3 ??F (36.3 ??C) Ht 167.6 cm (66 ) Wt 81.1 kg (178 lb 12.8 oz) SpO2 97% BMI 28.86 kg/m?? Vitals signs reviewed. Constitutional: Appearance: Healthy appearance. Well-developed and [...] and all orders for this visit: 1. Atrial tachycardia (CMS/HCC) (Primary), brief atrial tachycardia noted on month-long monitor. Noprolonged episodes. However no prolonged spells per patient report. Patient has been unable to tolerate increased doses of beta- gail in the past secondary to significant bradycardia. 2. Takotsubo cardiomyopathy, last echocardiogram in 2017 with normalized LVEF. On losartan. 3. Essential hypertension, mildly elevated today. On HCTZ. Plan: 1. At this time we will continue current medication regimen. 2. We will have patient monitor blood pressure at home. If remains elevated she is to call either our office or her primary care for medication titration. 3. Discussed with patient should she have recurrent prolonged episodes to recontact our office for further monitoring. 4. If recurrence noted could possibly consider loop recorder implant for definitive diagnosis of severe palpitations of his none have been captured on previous prolonged monitors and given their infrequent nature. 5. We will have patient follow-up in 1 year's time with repeat echo to follow-up on previous Takot subo cardiomyopathy or sooner if needed. Luis Alfredo Skinner APRN Dictated utilizing Dragon dictation documented in this encounter Plan of Treatment Upcoming Encounters Date Type Department Care Team (Late st Contact Info) Description 12/22/2024 9:50 AM EST Office Visit [facility] [address] [facility] [address] [place] [address] Go Zazueta MD [address] [facility] [address] [place], [place] [id number] 01/15/2025 9:45 AM EDT Office Visit [facility] CARDIOLOG[facility] [address] [facility] [address] [place] [address] Luis Alfredo Skinner APRN [address] [facility] [address] [place], [place] [phone] documented as of this encounter Visit Diagnoses Diagnosis Atrial tachycardia- Primary Other specified cardiac dysrhythmias Takotsubo cardiomyopathy Takotsubo syndrome Essential hypertension Unspecified essential hypertension documented in this encounter Care Teams Cavalry Scout Relationship Specialty Start Date End Date Davis Foote MD [address] [place] [address] PCP - General 09/18/15 07/21/22 documented as of this encounter
--- OUTSIDE RECORDS SUMMARY | 2024-10-02 13:11 | XMS_ITS | Encounter Summary ---
[facility] Address [address] [place] [address] Care Team Providers Care Staff Antisubmarine Officer Name Role Phone Davis Foote MD Primary Care Provider Reason for Visit * Reason Comments History of Takotsubo cardiomyopathy Encounter Details Date Type Department Care Team (Late st Contact Info) Description 12/04/2019 1:15 PM EST Office Visit [facility] CARDIOLOGY [address] [facility] [address] [place] [address] Abebe Diego MD [address] [facility] [address] [place] [address] History of Takotsubo cardiomyopathy (Primary Dx); Premature ventricular contractions (PVCs) (VPCs); Essential hypertension Social History Tobacco Use Types [...] Sign Reading Time Taken Comments Blood Pressure 110/64 12/04/2019 1:15 PM EST Pulse 73 12/04/2019 1:15 PM EST Temperature - - Respiratory Rate - - Oxygen Saturation 97% 12/04/2019 1:15 PM EST Inhaled Oxygen Concentration - - Weight 81.2 kg (179 lb) 12/04/2019 1:15 PM EST Height 167.6 cm (5' 6 ) 12/04/2019 1:15 PM EST Body Mass Index 28.89 12/04/2019 1:15 PM EST documented in this encounter Progress Notes * Abebe Diego MD - 12/04/2019 1:15 PM EST [facility] Cardiology Subjective: Encounter Date:12/04/2019 Patient ID: Rachael Fleming is a 74 y.o. female. Chief Complaint: History of Takotsubo cardiomyopathy PROBLEM LIST: 1. Takotsubo cardiomyopathy, 3 known episodes (1996, 2007, 2015): a. Initial diagnosis??(1996)??with subsequent recovery. b. [facility], 08/1997: Normal EF. Normal coronary arteries. c. Recurrence with diagnosis of Takotsubo syndrome??(2007)??at the [facility]. d. [facility], 06/2008: EF 20%. No significant coronary artery disease.?? e. Echocardiogram, 01/2009: EF??55%. f. [facility], 10/26/2016:??EF 20%.??Takotsubo/stress-induced cardiomyopathy with severe LV systolic dysfunction.??Near normal coronary arteries. g. Echocardiogram, 10/28/2016: EF 41%.??Findings consistent with stress-induced (Takotsubo) cardiomyopathy.??Mild MR, mild TR. h. Echocardiogram, 12/21/2016: EF normalized at 55%. Normal valves. i. Echocardiogram, 06/04/2017: EF 55%. Normal valves. j. Echocardiogram, 09/29/2017: EF 65%. Normal valves. k. 2018, evaluated at [facility] 2. Recurrent palpitations/tachyarrhythmias: a. Normal Holter??(10/2011). b. Event recorder shows atrial tachycardia at 145 bpm, which is symptomatic. c. Recurrent episode??(06/2017). d. Bilateral carotid duplex, 08/30/2017: GEORGE 0-49%, LICA 0-49%. e. Holter monitor-14 days, 10/22/2017: Essentially normal Holter readings.?No significant arrhythmia.?? f. day event monitor, 12/22/2017: No Afib. No pauses. 1% PVCs. HR range 49- 120 bpm, average 68 bpm. 3. Hypertension. 4. DONNA: a. Non-compliant with CPAP machine. 5. Peptic ulcer disease. 6. Hiatal hernia. 7. Irritable bowel syndrome 8. Nephrolithiasis. 9. Surgeries. a. Breast lumpectomies extracted and benign. b. Hysterectomy. c. Bilateral cataract extraction with lens implantation. d. Right breast resection. History of Present Illness Rachael Fleming returns today for annual follow up with a history of Takotsubo cardiomyopathy, palpitations, and cardiac risk factors. Since last visit, she has been feeling well overall from a cardiovascular standpoint. Pt was in Dr. Cannon's office for chest pain last week. He determined that hersymptoms were due to costochondritis, and prescribed 10 mg prednisone. This completely solved her symptoms. Denies any exertional chest pain, shortness of breath, orthopnea, PND, or palpitations. Allergies Allergen Reactions ??? Penicillins Hives ??? [...] Rfl: ??? carvedilol (COREG) 3.125 MG tablet, TAKE 1 TABLET TWICE A DAY WITH MEALS, Disp: 180 tablet, Rfl: 3 ??? isosorbide mononitrate (IMDUR) 30 MG 24 hr tablet, Take 30 mg by mouth 2 (Two) Times a Day., Disp: , Rfl: 0 ??? losartan-hydrochlorothiazide (HYZAAR) 50-12.5 MG per tablet, take 1 tablet by mouth once daily,Disp: 90 tablet, Rfl: 3 ??? meclizine (ANTIVERT) 25 MG tablet, Take 1 tablet by mouth 3 (Three) Times a Day As Needed for dizziness. (Patient taking differently: Take 25 mg by mouth As Needed for dizziness.), Disp: 30 tablet, Rfl: 0 ??? nitroglycerin (NITROSTAT) 0.4 MG SL tablet, Place 1 tablet [...] surgicalhistory and problem list. Review of Systems Constitution: Positive for malaise/fatigue. Cardiovascular: Positive for chest pain and dyspnea on exertion. Negative for irregular heartbeat, leg swelling and syncope. Respiratory: Positive for cough. Hematologic/Lymphatic: Negative for bleeding problem. Does not bruise/bleed easily. Skin: Negative for rash. Musculoskeletal: Negative for muscle weakness and myalgias. Gastrointestinal: Negative for heartburn, nausea and vomiting. Neurological: Negative. Objective: Vitals: 12/04/19 1315 BP: 110/64 BP Location: Left arm Patient Position: Sitting Pulse: 73 SpO2: 97% Weight: 81.2 kg (179 lb) Height: 167.6 cm (66 ) Physical Exam Constitutional: She is oriented to person, place, and time. She appears well- developed and well-nourished. HENT: Mouth/Throat: Oropharynx is clear and moist. Neck: No JVD present. Carotid bruit is not present. No thyromegaly present. Cardiovascular: Regular rhythm, S1 normal, S2 normal, normal heart sounds and intact distal pulses.Exam reveals no gallop, no S3 and no S4. No murmur heard. Pulses: Carotid pulses are 2+ on the right side, and 2+ on the left side. Radial pulses are 2+ on the right side, and 2+ on the left side. Pulmonary/Chest: Breath sounds normal. Abdominal: Soft. Bowel sounds are normal. She exhibits no mass. There is no tenderness. Musculoskeletal: She exhibits no edema. Neurological: She is alert and oriented to person, place, and time. Skin: Skin is warm and dry. No rash noted. Lab Review: Procedures Assessment: Rachael was seen today for history of takotsubo cardiomyopathy. Diagnoses and all orders for this visit: History of Takotsubo cardiomyopathy Premature ventricular contractions (PVCs) (VPCs) Essential hypertension Impression: 1. Takotsubo cardiomyopathy, recurrent, but currently with normal LVEF. Stable and asymptomatic. Oncarvedilol 3.125 mg BID. No heart failure PVCs, stable and asymptomatic. 2. Hypertension, well-controlled on current medications. Plan: 1. Stable cardiac status overall. 2. Continue current medications. 3. Revisit in 12 MO, or sooner as needed. Scribed for Abebe Diego MD by Herlinda Mccormack. 12/04/2019 2:59 PM Abebe Diego MD Please note that portions of this note may have been completed with a voice recognition program. Efforts were made to edit the dictations, but occasionally words are mistranscribed. documented in this encounter Plan of Treatment Upcoming Encounters Date Type Department Care Team (Late st Contact Info) Description 12/22/2024 9:50 AM EST Office Visit [facility] ORTHOPEDICS & SPORTS MEDICINE [address] [facility] [address] [place] [address] Go Zazueta MD [address] [facility] [address] [place], [place] [id number] 01/15/2025 9:45 AM EDT Office Visit [facility] CARDIOLOGY [facility] [address] [place] [address] Joy Skinner, TOOTH GRINDER [address] [place] [address] documented as of this encounter Visit Diagnoses Diagnosis History of Takotsubo cardiomyopathy- Primary Takotsubo syndrome Premature ventricular contractions (PVCs) (VPCs) Other premature beats Essential hypertension Unspecified essential hypertension documented in this encounter Care Teams Staff Antisubmarine Officer Relationship Specialty Start Date End Date Davis Foote MD [address] [place] [address] [place] [address] PCP - General 09/18/15 07/21/22 documented as of this encounter
--- OUTSIDE RECORDS SUMMARY | 2024-10-02 13:11 | XMS_ITS | Encounter Summary ---
[facility] Address [address] [place] [id number] Care Team Providers Care Daycare Provider Name Role Phone Davis Foote MD Primary Care Provider [phone] Encounter Details Date Type Department Care Team (Late st Contact Info) Description 12/20/2020 Telephone [facility] CARDIOLOGY [address] [place] [address] Abebe Diego MD [address] [facility] [address] [place] [address] Social History Tobacco Use Types Packs/Day Years [...] Telephone Encounter - Grisel Irwin RN - 12/20/2020 3:00 PM EST Patient has multiple questions regarding possible loop insertion. documented in this encounter Plan of Treatment Upcoming Encounters Date Type Department Care Team (Late st Contact Info) Description 12/22/2024 9:50 AM EST Office Visit [facility] ORTHOPEDICS & SPORTS MEDICINE [address] [facility] [address] [place] [address] Go Zazueta MD [address] [facility] [address] [place] [address] 01/15/2025 9:45 AM EDT Office Visit [facility] CARDIOLOGY [address] [facility] [address] [place] [address] Joy Skinner APRN [address] [facility] [address] [place], [place] [id number] documented as of this encounter Visit Diagnoses Not on filedocumented in this encounter Care Teams Daycare Provider Relationship Specialty Start Date End Date Davis Foote MD [address] [place] [address] [place] [address] PCP - General 09/18/15 07/21/22 documented as of this encounter
--- OUTSIDE RECORDS SUMMARY | 2024-10-02 13:11 | XMS_ITS | Encounter Summary ---
[facility] Address [address] [place] [address] Care Team Providers Care Composition Teacher Name Role Phone Davis Foote MD Primary Care Provider [phone] Reason for Visit * Reason Comments Med Refill Encounter Details Date Type Department Care Team (Late st Contact Info) Description 07/21/2018 Refill [facility] CARDIOLOGY [address] [facility] [place] [address] Abebe Diego MD [address] [facility] [address] [place] [id number] Med Refill Social History Tobacco Use Types [...] MEDICAL CENTER ORTHOPEDICS & SPORTS MEDICINE [address] [facility] [address] [place] [address] Go Zazueta MD [address] [facility] [address] [place], [place] [id number] 01/15/2025 9:45 AM EDT Office Visit [facility] CARDIOLOGY [address] [place] [address] Joy Skinner APRN [address] [place] [address] documented as of this encounter Visit Diagnoses Diagnosis Takotsubo cardiomyopathy Takotsubo syndrome documented in this encounter Care Teams Composition Teacher Relationship Specialty Start Date End Date Davis Foote MD [address] [place] [address] PCP - General 09/18/15 07/21/22 documented as of this encounter
--- OUTSIDE RECORDS SUMMARY | 2024-10-02 13:11 | XMS_ITS | Encounter Summary ---
[facility] Address [address] [place] [address] Care Team Providers Care Drawing Kiln Supervisor Name Role Phone Davis Foote MD Primary Care Provider [phone] Reason for Visit * Reason Onset Date Comments Med Refill 01/16/2020 Encounter Details Date Type Department Care Team (Late st Contact Info) Description 01/16/2020 Refill [facility] CARDIOLOGY [address] [place] [address] Abebe Diego MD [address] [facility] [address] [place] [id number] Med Refill Social History Tobacco Use Types [...] & SPORTS MEDICINE [address] [facility] [address] [place] [address] Go Zazueta MD [address] [facility] [address] [place], [place] [phone] 01/15/2025 9:45 AM EDT Office Visit [facility] CARDIOLOGY [address] [place] [address] Joy Skinner APRN [address] [facility] [address] [place] [address] documented as of this encounter Visit Diagnoses Diagnosis Essential hypertension Unspecified essential hypertension NICM (nonischemic cardiomyopathy) Takotsubo cardiomyopathy Takotsubo syndrome documented in this encounter Care Teams Drawing Kiln Supervisor Relationship Specialty Start Date End Date Davis Foote MD [address] [place] [address] PCP - General 09/18/15 07/21/22 documented as of this encounter
--- OUTSIDE RECORDS SUMMARY | 2024-10-02 13:11 | XMS_ITS | Encounter Summary ---
Author Organization [facility] Address [address] [place] [address] Care Team Providers Care Chief Digital Media Officer Name Role Phone Davis Foote MD Primary Care Provider [phone] Reason for Visit * Monitoring (Routine) - Closed Specialty Diagnoses / Procedures Referred By Contac t Referred To Contact Cardiology Diagnoses Atrial tachycardia Premature ventricular contractions (PVCs) (VPCs) Procedures Holter Monitor - 72 Hour Up To 21 Days Abebe Diego MD [address] [facility] [address] [place] [address] Phone: tel: fax: [facility] CARDIOLOGY [address] [address] Phone: tel: fax: Referral ID Status Reason Start Date Expiration Date Visits Re quested Visits Authorized [id number] Closed 10/16/2020 10/16/2021 1 1 Encounter Details Date Type Department Care Team (Latest Contact Info) Description 10/16/2020 2:00 PM EST Ancillary Procedure [facility] CARDIOLOGY [address] [address] Atrial tachycardia; Premature ventricular contractions (PVCs) (VPCs) Social History Tobacco Use Types Packs/Day Years [...] AM EST Office Visit [facility] ORTHOPEDICS & SPORTS MEDICINE [address] [facility] [address] [place] [address] Go Zazueta MD [address] [facility] [address] [place], [place] [id number] 01/15/2025 9:45 AM EDT Office Visit [facility] CARDIOLOGY [address] [facility] [address] [place] [address] Joy Skinner APRN [address] [facility] [address] [place] [address] documented as of this encounter Procedures Procedure Name Priority Date/Time Associated Diagnosis Comments HOLTER MONITOR 72HR-21DAY ([id number]) Routine 10/16/2020 1:55 PM EST Atrial tachycardia Premature ventricular contractions (PVCs) (VPCs) documented in this encounter Results * HOLTER MONITOR 72HR-21DAY ([id number]) (10/16/2020 1:55 PM EST) Anatomical Region Laterality Modality Other Narrative 11/12/2020 4:54 PM EST Study Description Monitor placed on patient on 10/16/2020 . The monitor was scanned on 11/12/2020. The patient was monitored for 14 days. Average HR: 69. Min HR: 49. Max HR: 174. Abebe Diego MD [facility] CARDIAC SERVICES ORDERABLES Final Result documented in this encounter Visit Diagnoses Diagnosis Atrial tachycardia Other specified cardiac dysrhythmias Premature ventricular contractions (PVCs) (VPCs) Other premature beats documented in this encounter Care Teams Chief Digital Media Officer Relationship Specialty Start Date End Date Davis Foote MD [address] [place] [address] PCP - General 09/18/15 07/21/22 documented as of this encounter
--- OUTSIDE RECORDS SUMMARY | 2024-10-02 13:11 | XMS_ITS | Encounter Summary ---
[facility] Address [address] [place] [address] Care Team Providers Care Critical Care Nurse Name Role Phone Davis Foote MD Primary Care Provider [phone] Reason for Visit * Reason Comments Atrial tachycardia Premature ventricular contractions (PVCs ) Hypertension Encounter Details Date Type Department Care Team (Late st Contact Info) Description 12/01/2018 2:00 PM EST Office Visit [facility] [address] [facility] [address] [place] [phone] Abebe Diego MD [address] [facility] [address] [place] [address] History of Takotsubo cardiomyopathy (Primary Dx); Essential hypertension Social History Tobacco Use Types [...] Sign Reading Time Taken Comments Blood Pressure 128/72 12/01/2018 2:03 PM EST Pulse 74 12/01/2018 2:03 PM EST Temperature - - Respiratory Rate - - Oxygen Saturation 94% 12/01/2018 2:03 PM EST Inhaled Oxygen Concentration - - Weight 81.5 kg (179 lb 9.6 oz) 12/01/2018 2:03 P M EST Height 167.6 cm (5' 6 ) 12/01/2018 2:03 PM EST Body Mass Index 28.99 12/01/2018 2:03 PM EST documented in this encounter Progress Notes * Abebe Diego MD - 12/01/2018 2:00 PM EST Subjective: Encounter Date:12/01/2018 Primary Care Physician: Davis Foote MD Patient ID: Rachael Fleming is a 73 y.o. female. Chief Complaint:Atrial tachycardia; Premature ventricular contractions (PVCs); and Hypertension PROBLEM LIST: 1. Cardiomyopathy, Takotsubo's. a. Initial diagnosis (1996) with subsequent recovery. b. Recurrence with diagnosis of Takotsubo syndrome (2007) at the [facility]. c. Recurrence; EF 20%. Takotsubo/stress-induced cardiomyopathy with severe LV systolic dysfunction.(10/26/2016) d. Resolved by echocardiogram EF 65% (12/2016). e. 2018, evaluated at [facility] 2. Coronary artery disease. a. Cardiac catheterization (08/1997): Normal EF. Normal coronary arteries. b. Cardiac catheterization??(06/2008): EF 20%. No significant coronary artery disease. c. Echocardiogram (01/2009): EF 55 +/- 5%. ?? d. LHC (10/26/2016): EF 20%. Takotsubo/stress-induced cardiomyopathy with severe LV systolic dysfunction.??Near normal coronary arteries. e. Echocardiogram (10/28/2016): EF 41%.??Findings consistent with stress-induced (Takotsubo) cardiomyopathy.??Mild MR, mild TR. 3. Recurrent palpitations/tachyarrhythmias. a. Normal Holter (10/2011). b. Event recorder shows atrial tachycardia at 145 beats per minute, which is symptomatic. Recurrentepisode (06/2017). c. Bilateral carotid duplex (08/30/2017): GEORGE 0-49%, LICA 0-49%. d. Holter monitor-14 days (09/29/2017): Essentially normal Holter readings. No significant arrhythmia. 4. Hypertension. 5. Obstructive sleep apnea: Non-compliant with CPAP machine. 6. Peptic ulcer disease. 7. Hiatal hernia. 8. Irritable bowel syndrome 9. Nephrolithiasis. 10. Surgeries. a. Breast lumpectomies extracted and benign. [...] Rfl: ??? carvedilol (COREG) 3.125 MG tablet, take 1 tablet by mouth twice a day WITH MEALS, Disp: 180 tablet, Rfl: 3 ??? furosemide (LASIX) 20 MG tablet, Take 20 mg by mouth As Needed., Disp: , Rfl: ??? isosorbide mononitrate (IMDUR) 30 MG 24 hr tablet, Take 30 mg by mouth 2 (Two) Times a Day., Disp: , Rfl: 0 ??? losartan-hydrochlorothiazide (HYZAAR) 50-12.5 MG per tablet, Take 1 tablet by mouth Daily., Disp: 90 tablet, Rfl: 3 ??? meclizine (ANTIVERT) [...] 1 capsule by mouth once daily, Disp: 90 capsule, Rfl:3 ??? pitavastatin calcium (LIVALO) 2 MG tablet tablet, Take 2 mg by mouth Every Night., Disp: , Rfl: ??? zolpidem (AMBIEN) 10 MG tablet, Take 5 mg by mouth At Night As Needed for sleep., Disp: , Rfl: ??? clopidogrel (PLAVIX) 75 MG tablet, Take 1 tablet by mouth Daily., Disp: 90 tablet, Rfl: 3 Current Facility-Administered Medications: ??? albuterol (PROVENTIL HFA;VENTOLIN HFA) inhaler 2 puff, 2 puff, Inhalation, Q4H PRN, Kushal Silverman APRN History of Present Illness Procedure annual follow-up with Takotsubo's cardiomyopathy. Since last visit she is asymptomatic [facility] and overall has done well with increasing beta gail, in the addition of nitrates to her medical therapy. She denies any recent tachypalpitations, so she is as active as she can in quite some time and denies any dyspnea chest pain or any other cardiovascular symptoms. She is questions of whether or not Plavix is necessary as we discontinue this over the past year as well. Also patient has questions regarding exercise restrictions, and weight loss strategies. The following portions of the patient's history [...] Constitution: Positive for malaise/fatigue. Cardiovascular: Positive for irregular heartbeat and palpitations. Respiratory: Negative. Hematologic/Lymphatic: Negative for bleeding problem. Does not bruise/bleed easily. Skin: Negative for rash. Musculoskeletal: Positive for back pain. Negative for muscle weakness and myalgias. Gastrointestinal: Negative for heartburn, nausea and vomiting. Neurological: Negative. Objective: height is 167.6 cm (66 ) and weight is 81.5 kg (179 lb 9.6 oz). Her blood pressure is 128/72 and her pulse is 74. Her oxygen saturation is 94%. Physical Exam Constitutional: She is oriented to [...] is warm and dry. No rash noted. Procedures Assessment: Assessment/Plan Rachael was seen today for atrial tachycardia, premature ventricular contractions (pvcs) and hypertension. Diagnoses and all orders for this visit: History of Takotsubo cardiomyopathy Essential hypertension 1. History of recurrent Takotsubo's cardio myopathy, currently in remission with normal LVEF and no evidence of heart failure. 2. No significant coronary artery disease. Does not need Plavix. 3. Hypertension, well-controlled. Next 4. Anxiety/stress disorder, currently doing very well from this perspective. The dictations will continue current medical therapy including lifelong beta gail given her recurrent Takotsubo's. Annually or when necessary symptom change. 4. Discussed exercise program and restrictions which she has which are minor. Also discussed various dietary options including the need to avoid any appetite suppressants. Abebe Diego MD Dictated utilizing Dragon dictation documented in this encounter Plan of Treatment Upcoming Encounters Date Type Department Care Team (Late st Contact Info) Description 12/22/2024 9:50 AM EST Office Visit [facility] ORTHOPEDICS & SPORTS MEDICINE [address] [facility] [address] [place] [address] Go Zazueta MD [facility]0 [facility] [address] [place] [address] 01/15/2025 9:45 AM EDT Office Visit [facility] [address] [place] [address] Joy Skinner APRN [address] [place] [address] documented as of this encounter Visit Diagnoses Diagnosis History of Takotsubo cardiomyopathy- Primary Takotsubo syndrome Essential hypertension Unspecified essential hypertension documented in this encounter Care Teams Critical Care Nurse Relationship Specialty Start Date End Date Davis Foote MD [address] [place] [address] PCP - General 09/18/15 07/21/22 documented as of this encounter
--- OUTSIDE RECORDS SUMMARY | 2024-10-02 13:11 | XMS_ITS | Encounter Summary ---
[facility] Organization [facility] Address [address] [place] [address] Care Team Providers Care Acidity Tester Name Role Phone Davis Foote MD Primary Care Provider [phone] Reason for Visit * Reason Onset Date Comments Med Refill 08/25/2018 Encounter Details Date Type Department Care Team (Late st Contact Info) Description 08/25/[address] [facility] CARDIOLOGY [address] [facility] [address] [place] [phone] Abebe Diego MD [address] [facility] [address] [place] [id number] Med Refill Social History Tobacco Use Types [...] AM EST Office Visit [facility] [address] [facility] [address] [place] [address] Go Zazueta MD [address] [facility] [address] [place], [place] [phone] 01/15/2025 9:45 AM EDT Office Visit [facility] C[facility] [address] [place] [phone] Joy Skinner APRN [address] [facility] [address] [place] [address] documented as of this encounter Visit Diagnoses Diagnosis Essential hypertension Unspecified essential hypertension NICM (nonischemic cardiomyopathy) documented in this encounter Care Teams Acidity Tester Relationship Specialty Start Date End Date Davis Foote MD [address] [place] [address] [place] [address] PCP - General 09/18/15 07/21/22 documented as of this encounter
--- OUTSIDE RECORDS SUMMARY | 2024-10-02 13:11 | XMS_ITS | Encounter Summary ---
[facility] Address [address] [place] [address] Care Team Providers Care Underwriting Operations Manager Name Role Phone Davis Foote MD Primary Care Provider [phone] Reason for Visit * Reason Comments Med Refill Encounter Details Date Type Department Care Team (Late st Contact Info) Description 09/29/2019 Refill [facility]IOLOG[facility] [address] [facility] [address] [place] [phone] Abebe Diego MD [address] [facility] [address] [address] [place], [place] [id number] Med Refill Social History Tobacco Use Types [...] Description 12/22/2024 9:50 AM EST Office Visit [facility] & [facility]TS MEDICINE [address] [facility] [address] [place] [address] Go Zazueta MD [address] [facility] [address] [place], [place] [phone] 01/15/2025 9:45 AM EDT Office Visit [facility] [address] [place] [address] Joy Skinner APRN [address] [place] [address] documented as of this encounter Visit Diagnoses Diagnosis Essential hypertension Unspecified essential hypertension NICM (nonischemic cardiomyopathy) documented in this encounter Care Teams Underwriting Operations Manager Relationship Specialty Start Date End Date Davis Foote MD [address] [place] [address] PCP - General 09/18/15 07/21/22 documented as of this encounter
--- OUTSIDE RECORDS SUMMARY | 2024-10-02 13:11 | XMS_ITS | Encounter Summary ---
[facility] Address [address] [place] [address] Care Team Providers Care Tombstone Erector Name Role Phone Davis Foote MD Primary Care Provider [phone] Encounter Details Date Type Department Care Team (Late st Contact Info) Description 12/10/2020 Refill [facility] C[facility] [address] [facility] [address] [place] [address] Abebe Diego MD [address] [facility] [address] [address] [place] [address] Social History Tobacco Use Types Packs/Day Years [...] [facility] MEDICINE [address] [facility] [address] [place] [address] Go Zazueta MD [address] [facility] [address] [place], [place] [phone] 01/15/2025 9:45 AM EDT Office Visit [facility] CARDIOLOGY [address] [place] [address] Joy Skinner APRN [address] [place], [place] [phone] documented as of this encounter Visit Diagnoses Not on filedocumented in this encounter Care Teams Tombstone Erector Relationship Specialty Start Date End Date Davis Foote MD [address] [place] [address] [place] [address] PCP - General 09/18/15 07/21/22 documented as of this encounter
--- OUTSIDE RECORDS SUMMARY | 2024-10-02 13:11 | XMS_ITS | Encounter Summary ---
Author Organization [facility] Address [address] [place] [phone] Care Team Providers Care Field Identification Specialist Name Role Phone Davis Foote MD Primary Care Provider [phone] Encounter Details Date Type Department Care Team (Late st Contact Info) Description 12/13/2020 Telephone [facility] C[facility]IOLOG[facility] [address] [facility] [address] [place] [address] Joy Skinner APRN [address] [facility] [address] [place] [address] Social History Tobacco Use Types Packs/Day Years [...] encounter Miscellaneous Notes * Telephone Encounter - Annette Durant RN - 12/13/2020 12:[address] Foote called during lunch so I ended up speaking with him. The patient came to him today after having 11 min episode of tachycardia that left her feeling drained and weak. He states all her cardiac enzymes have come back normal. He stated that loop recorder had been discussed with pt when you saw her last and he and the patient would like to proceed with that. Ok to place order for loop insertion? documented in this encounter Plan of Treatment Upcoming Encounters Date Type Department Care Team (Late st Contact Info) Description 12/22/2024 9:50 AM EST Office Visit [facility] ORTHOPEDICS & SPORTS MEDICINE [address] [facility] [address] [place] [address] Go Zazueta MD [address] [facility] [address] [place], [place] [id number] 01/15/2025 9:45 AM EDT Office Visit [facility] C[facility]IOLOG[facility] [address] [facility] [address] [place] [address] Joy Skinner APRN [address] [facility] [address] [place], [place] [id number] documented as of this encounter Visit Diagnoses Diagnosis Atrial tachycardia- Primary Other specified cardiac dysrhythmias History of Takotsubo cardiomyopathy Takotsubo syndrome documented in this encounter Care Teams Field Identification Specialist Relationship Specialty Start Date End Date Davis Foote MD [address] [place] [address] [place] [address] PCP - General 09/18/15 07/21/22 documented as of this encounter
--- OUTSIDE RECORDS SUMMARY | 2024-10-02 13:11 | XMS_ITS | Encounter Summary ---
Author Organization [facility] Address [address] [place] [address] Care Team Providers Care Smash Hand Name Role Phone Davis Foote MD Primary Care Provider [phone] Reason for Referral * (Routine) - Closed Specialty Diagnoses / Procedures Referred By Fabrice t Referred To Contact Diagnoses Atrial tachycardia Premature ventricular contractions (PVCs) (VPCs) Takotsubo cardiomyopathy Rapid palpitations Procedures EP/CRM Study Abebe Diego MD [address] [facility] [address] [place] [address] Phone: tel: fax: Referral ID Status Reason Start Date Expiration Date Visits Re quested Visits Authorized [id number] Closed 01/24/2021 01/24/2022 1 1 Reason for Visit * Auth/Cert Specialty Diagnoses / Procedures Referred By Contac t Referred To Contact Diagnoses Atrial tachycardia Premature ventricular contractions (PVCs) (VPCs) Takotsubo cardiomyopathy Rapid palpitations Procedures ND INSERTION SUBQ CARDIAC RHYTHM MONITOR W/PRGRMG ND EVENT RECORDER, CARDIAC Loop insertion Referral ID Status Reason Start Date Expiration Date Visits Re quested Visits Authorized [id number] 1 1 Encounter Details Date Type Department Care Team (Late st Contact Info) Description 01/31/2021 7:55 AM EDT - 01/31/2021 12:07 PM EDT Hospital Encounter [facility] CV [address] [place] [address] Abebe Jeong MD [address] [facility] [address] [place] [address] Atrial tachycardia; Premature ventricular contractions (PVCs) (VPCs); Takotsubo cardiomyopathy; Rapid palpitations Discharge Disposition: Home [...] Sign Reading Time Taken Comments Blood Pressure 112/63 01/31/2021 11:45 AM EDT Pulse 66 01/31/2021 11:45 AM EDT Temperature 36.3 ??C (97.3 ??F) 01/31/2021 8:13 AM ED T Respiratory Rate 18 01/31/2021 10:4 1 AM EDT Oxygen Saturation 97% 01/31/2021 11: 45 AM EDT Inhaled Oxygen Concentration - - Weight 79.3 kg (174 lb 13.2 oz) 01/31/2021 8:13 AM EDT Height 167.6 cm (5' 6 ) 01/31/2021 8:13 AM EDT Body Mass Index 28.22 01/31/2021 8:13 AM EDT documented in this encounter Discharge Instructions * Attachments The following attachments cannot be sent through Care Everywhere. * Implantable Loop Recorder Placement (Japanese) * Implantable Loop Recorder Placement Care After (Japanese) * Moderate Conscious Sedation Adult Care After (Japanese) documented in this encounter Medications at Time [...] Skinner APRN - 01/31/2021 8:41 AM EDT [facility] History and physical Patient Care Team: Davis Foote MD as PCP - General Davis Foote MD as PCP - Family Medicine PROBLEM LIST: 1. Takotsubo cardiomyopathy, 3 known episodes (1996, 2007, 2015): a. Initial diagnosis??(1996)??with subsequent recovery. b. [facility],??08/1997: Normal EF. Normal coronary arteries. c. Recurrence with diagnosis of Takotsubo syndrome??(2007)??at the [facility]. d. [facility],??06/2008: EF 20%. No significant coronary artery disease.?? e. Echocardiogram,??01/2009: EF??55%. f. [facility],??10/26/2016:??EF 20%.??Takotsubo/stress-induced cardiomyopathy with severe LV systolic dysfunction.??Near normal coronary arteries. g. Echocardiogram,??10/28/2016: EF 41%.??Findings consistent with stress-induced (Takotsubo) cardiomyopathy.??Mild MR, mild TR.?? h. Echocardiogram, 12/21/2016: EF normalized at 55%. Normal valves. i. Echocardiogram, 06/04/2017: EF 55%. Normal valves. j. Echocardiogram, 09/29/2017: EF 65%. Normal valves. k. 2018, evaluated at [facility] 2. Recurrent palpitations/tachyarrhythmias: a. Normal Holter??(10/2011). [...] 4 mg, 4 mg, Intravenous, Q6H PRN, Joy Skinner, ASSISTANT SERVICE MANAGER ??? sodium chloride 0.9 % flush 10 mL, 10 mL, Intravenous, PRN, Joy Skinner, ASSISTANT SERVICE MANAGER ??? sodium chloride 0.9 % flush 3 mL, 3 mL, Intravenous, Q12H, Joy Skinner, ASSISTANT SERVICE MANAGER ??? vancomycin 1500 mg/500 mL 0.9% NS IVPB ([facility]), 1,500 mg, Intravenous, Once, Joy Skinner, BO Facility-Administered Medications Prior to Admission Medication Dose [...] the patient's new clinical results. Invalid input(s): GONZÁLEZ DRISCOLL No results found for: TROPONINT Assessment/Plan 1. [...] recorder implant. Joy Skinner APRN Dictated utilizing Dragon dictation Cosigned by Abebe Diego MD at 01/31/2021 9:20 AM EDT Associated attestation - Abebe Diego MD - 01/31/2021 9:20 AM EDT w documented in this encounter Procedure Notes * Abebe Diego MD - 01/31/2021 10:33 AM EDTAssociated Order(s): Loop Recorder Implant - [place] [facility] Post-Procedure Diagnose(s): Atrial tachycardia; Premature ventricular contractions (PVCs) (VPCs); Rapid palpitations Loop Recorder Implant - [place] [facility] Date/Time: 01/31/2021 10:33 AM Performed by: [...] to verify the correct patient, procedure, equipment, community support specialist and site/side marked as required. Preparation: Patient [...] complications Comments: Successful implantable loop recorder implant, [employer] Lux-DX serial #[id number] Abebe Diego MD documented in this encounter Plan of Treatment Upcoming Encounters Date Type Department Care Team (Late st Contact Info) Description 12/22/2024 9:50 AM EST Office Visit [facility] ORTHOPEDICS & SPORTS MEDICINE [address] [address] Go Zazueta MD [address] [facility] [address] [place] [id number] 01/15/2025 9:45 AM EDT Office Visit [facility] CARDIOLOGY [address] [facility] [address] [place] [address] Joy Skinner APRN [facility] [facility] [address] [place] [address] documented as of this encounter Procedures Procedure [...] 01/31/2021 10:37 AM Loop Recorder Implant - [place] [facility] Date/Time: 01/31/2021 10:33 AM Performed by: [...] to verify the correct patient, procedure, equipment, community support specialist and site/side marked as required. Preparation: Patient [...] complications Comments: Successful implantable loop recorder implant, [employer] Lux? DX serial #[id number] Abebe Diego MD CV CARDIAC SERVICES ORDERABLES [...] with 10 mg of lidocaine. ?? A [employer] implantable loop recorder was planted per package insert tool. ??[employer] Lux? DX serial #[id number] was implanted. ??No complications us Abebe Diego MD CV ELECTROPHYSIOLOGY ORDERABLE S Final Result * POC Creatinine (01/31/2021 8:38 AM EDT) Creatinine 0.80 0.60 - 1.30 mg/dL 01/31/2021 2:09 PM EDT [facility] Comment:Serial Number: [id number]: [id number] Blood 01/31/2021 8:38 AM EDT 01/31/2021 2:09 PM EDT Abebe Diego MD POINT OF CARE TEST ORDERABLES Final Result [facility]
[address] [place] [address], * (ABNORMAL) Basic Metabolic Panel (01/31/2021 8:21 AM EDT) Glucose 107(H) 65 - 99 mg/dL 01/31/2021 9:10 AM EDT [facility] BUN 15 8 - 23 mg/dL 01/31/2021 9:10 AM EDT [facility] Creatinine 0.88 0.57 - 1.00 mg/dL 01/31/2021 9:10 AM EDT [facility] Sodium 139 136 - 145 mmol/L 01/31/2021 9:10 AM EDT [facility] Potassium 4.5 3.5 - 5.2 mmol/L 01/31/2021 9:10 AM EDT [facility] Comment:Slight hemolysis det ected by analyzer. Results may be affected. Chloride 103 98 - 107 mmol/L 01/31/2021 9:10 AM EDT [facility] CO2 25.0 22.0 - 29.0 mmol/L 01/31/2021 9:10 AM EDT [facility] Calcium 9.4 8.6 - 10.5 mg/dL 01/31/2021 9:10 AM EDT [facility] eGFR Non Amer 63 >60 mL/min/1.7 3 01/31/2021 9:10 AM EDT [facility] BUN/Creatinine Ratio 17.0 7.0 - 25.0 01/31/2021 9:10 AM EDT [facility] Anion Gap 11.0 5.0 - 15.0 mmol/L 01/31/2021 9:10 AM EDT [facility] Blood Line / Unknown 01/31/2021 8: 21 AM EDT 01/31/2021 8:43 AM EDT Narrative [facility] - 01/31/2021 9:10 AM EDT GFR Normal >60 Chronic Kidney Disease <60 Kidney Failure <15 Abebe Diego MD LAB BLOOD ORDERABLES Final Res ult [facility]
[address] [place] [address], * CBC (No Diff) (01/31/2021 8:21 AM EDT) WBC 6.50 3.40 - 10.80 10*3/mm3 01/31/2021 8:54 AM EDT [facility] RBC 4.65 3.77 - 5.28 10*6/mm3 01/31/2021 8:54 AM EDT [facility] Hemoglobin 13.2 12.0 - 15.9 g/dL 01/31/2021 8:54 AM EDT [facility] Hematocrit 41.1 34.0 - 46.6 % 01/31/2021 8:54 AM EDT [facility] MCV 88.4 79.0 - 97.0 fL 01/31/2021 8:54 AM EDT [facility] MCH 28.4 26.6 - 33.0 pg 01/31/2021 8:54 AM EDT [facility] MCHC 32.1 31.5 - 35.7 g/dL 01/31/2021 8:54 AM EDT [facility] RDW 12.3 12.3 - 15.4 % 01/31/2021 8:54 AM EDT [facility] RDW-SD 39.6 37.0 - 54.0 fl 01/31/2021 8:54 AM EDT [facility] MPV 9.9 6.0 - 12.0 fL 01/31/2021 8:54 AM EDT [facility] Platelets 336 140 - 450 10*3/mm3 01/31/2021 8:54 AM EDT [facility] Blood Line / Unknown 01/31/2021 8: 21 AM EDT 01/31/2021 8:43 AM EDT Abebe Diego MD LAB BLOOD ORDERABLES Final Res ult [facility]
[address] [place] [address], * SCANNED - TELEMETRY (01/31/2021) Anatomical Region Laterality Modality Other [facility] Onbase ECG ORDERABLES Final Result documented in [...] MAR Action Action Date Dose Rate Site vancomycin 1500 mg/500 mL 0.9% NS IVPB [...] 1015 (New Bag - Prov ider: Kecia Pham, RN)1156 (Stopped - Provider: Angélica Rodriguez RN) [...] RN) documented in this encounter Care Teams Smash Hand Relationship Specialty Start Date End Date Davis Foote MD [address] [place] [address] [place] [address] PCP - General 09/18/15 07/21/22 documented as of this encounter
--- OUTSIDE RECORDS SUMMARY | 2024-10-02 13:11 | XMS_ITS | Encounter Summary ---
[facility] Address [address] [place] [address] Care Team Providers Care Chipper Feeder Name Role Phone Davis Fooet MD Primary Care Provider [phone] Reason for Visit * Reason Onset Date Comments Med Refill 12/13/2020 Encounter Details Date Type Department Care Team (Late st Contact Info) Description 12/13/2020 Refill [facility] C[facility]IOLOG[facility] [address] [facility] [address] [place] [phone] Joy Skinner APRN [address] [facility] [address] [place] [id number] Med Refill Social History Tobacco Use Types [...] [facility]OPEDICS [facility] SPORTS MEDICINE [address] [facility] [address] [place] [address] Go Zazueta MD [address] [facility] [address] [place] [address] 01/15/2025 9:45 AM EDT Office Visit [facility] CARDIOLOGY [address] [place] [phone] Joy Skinner APRN [address] [facility] [address] [place] [id number] documented as of this encounter Visit Diagnoses Not on filedocumented in this encounter Care Teams Chipper Feeder Relationship Specialty Start Date End Date Davis Foote MD [address] [place] [address] [place] [address] PCP - General 09/18/15 07/21/22 documented as of this encounter
--- OUTSIDE RECORDS SUMMARY | 2024-10-02 13:11 | XMS_ITS | Encounter Summary ---
Author Organization [facility] Address [address] [place] [address] Care Team Providers Care Process Excellence Manager Name Role Phone Daivs Foote MD Primary Care Provider [phone] Reason for Visit * Reason Comments Chest Pain Encounter Details Date Type Department Care Team (Late st Contact Info) Description 02/07/2018 8:51 AM EDT - 02/07/2018 4:33 PM EDT Emergency [facility] EMERGENCY DEPARTMENT [address] [place] [address] Roc Alejandro MD [address] [facility] [place]ERGENCY [place] [address] Chest pain, unspecified type (Primary Dx) Discharge Disposition: Home or Self Care Social History Tobacco Use Types Packs/Day Years Used Date Smoking Tobacco: Never Smokeless Tobacco: Never Alcohol Use Standard Drinks/Week Comments No 0 (1 standard drink = 0.6 oz pur e alcohol) Comments Unknown Sex and Gender Information Value Date Recorded [...] Sign Reading Time Taken Comments Blood Pressure 151/79 02/07/2018 4:00 PM EDT Pulse 64 02/07/2018 4:00 PM EDT Temperature 36.4 ??C (97.6 ??F) 02/07/2018 8:53 AM ED T Respiratory Rate 20 02/07/2018 3:09 PM EDT Oxygen Saturation 100% 02/07/2018 4:00 PM EDT Inhaled Oxygen Concentration - - Weight 75.8 kg (167 lb) 02/07/2018 8:53 AM EDT Height 167.6 cm (5' 6 ) 02/07/2018 8:53 AM EDT Body Mass Index 26.95 02/07/2018 8:53 AM EDT documented in this encounter Discharge Instructions * Attachments The following attachments cannot be sent through Care Everywhere. * NONSPECIFIC CHEST PAIN [id number] (IVORIAN) documented in this encounter Medications at Time of Discharge aspirin 81 MG EC tablet Take 1 tablet by mouth Daily. ALPRAZolam (XANAX) 0.25 MG tablet Take 0.25 mg by mouth At Night As Needed for Anxiety (0.5 tablet PRN). 2 carvedilol (COREG) 3.125 MG tabletIndications:Ta kotsubo cardiomyopathy Take 1 tablet by mouth 2 (Two) Times a Day With Meals. 180 tablet 3 07/07/2017 8 clopidogrel (PLAVIX) 75 MG tablet Take 1 tablet by mouth Daily. 90 tablet 3 07/07/2017 0 Coenzyme Q10 200 MG capsule Take 200 mg by mouth Daily. 30 capsule 11 01/11/2018 9 isosorbide mononitrate (IMDUR) 30 MG 24 hr tablet Take 1 tablet by mouth Daily for 180 days. 90 tablet 1 02/07/2018 8 losartan-hydrochloro thiazide (HYZAAR) 50-12.5 MG per tabletIndications:Es sential hypertension,NICM (nonischemic cardiomyopathy) Take 1 tablet by mouth Daily. 90 tablet 3 07/07/2017 8 nitroglycerin (NITROSTAT) 0.[address] 1 tablet under the tongue Every 5 (Five) Minutes As Needed for Chest Pain. Take no more than 3 doses in 15 minutes. 25 tablet 5 07/07/2017 0 omeprazole (priLOSEC) 40 MG capsule Take 1 capsule by mouth Daily. 90 capsule 3 07/07/2017 8 pravastatin (PRAVACHOL) 80 MG tablet Take 0.5 tablets by mouth Every Night. 90 tablet 3 01/11/2018 9 zolpidem (AMBIEN) 10 MG tablet Take 5 mg by mouth At Night As Needed for sleep. 1 documented as of this encounter Consult Notes * Kev Ceballos IV, MD - 02/07/2018 11:23 AM EDT [facility] Cardiology Consult/Emergency Department 02/07/2018 Subjective: Rachael Fleming 09/11 1945 0 Davis Foote MD Primary Assembly Machine Tool Setter: Abebe Diego MD Chief Complaint: Chest Pain Problem List: 1. Cardiomyopathy, Takotsubo's. a. Initial diagnosis (1996) with subsequent recovery. b. Recurrence with diagnosis of Takotsubo syndrome (2007) at the [facility]. c. Recurrence (10/26/2016) d. Resolved by echocardiogram (12/2016). 2. Coronary artery disease. a. Cardiac catheterization [...] Essentially normal Holter readings. No significant arrhythmia. e. Cardiac Event Monitor 12/20/17 revealing no abnormal findings. 4. Hypertension. 5. Obstructive sleep apnea: Non-compliant with CPAP machine. 6. Peptic ulcer disease. 7. Hiatal hernia. 8. Irritable bowel syndrome 9. Nephrolithiasis. 10. Hyperlipidemia 11. Surgeries. a. Breast lumpectomies extracted and benign. b. Hysterectomy. c. Bilateral cataract extraction with lens implantation. d. Right breast resection. ?? is allergic to penicillins; phenergan [promethazine hcl]; statins; sudafed [pseudoephedrine hcl]; and sulfa antibiotics. Home Medications: 1. ASA 81 mg po daily. 2. Coreg 3.125 mg po bid. 3. Plavix 75 mg po daily. 4. Losartan/HCTZ 50/12.5 mg po daily. 5. Prilosec 40 mg po daily. 6. Pravastatin 40 mg po daily. 7. Albuterol Inhaler prn 8. Xanax 0.25 mg po prn. 9. NTG 0.4 mg sl prn chest pain. HPI: Mrs. Fleming is a 72 yr old white female with a history of Takotsubo's cardiomyopathy, palpitations, hyperlipidemia and hypertension. She presented to the ED this am with her 3rd episode of sharp chest pain, chest pressure and feeling weak, as if she just received a dose of IV morphine. She states the discomfort radiates into her left jaw. She states her symptoms this morning lasted for 2 hours and were finally relieved after she had NTG paste applied to her chest. All of her episodes have occurred at rest or with minimal activity. She has also noted fatigue since November. She was admitted overnight to [facility] 10 days ago and ruled out for GA. Today her initial EKG was unr emarkable and her Troponin was negative. Cardiac risk factors: advanced age (older than 55 for men, 65 for women), dyslipidemia, hypertension, obesity (BMI >= 30 kg/m2) and sedentary lifestyle. History Family History Problem Relation Age of Onset ??? Heart disease Mother ??? Stroke Mother ??? Heart disease Father ??? Cancer Sister ??? Stroke Maternal Grandmother ??? Heart disease Maternal Grandfather ??? Heart failure Maternal Grandfather ??? Heart failure Paternal Grandmother ??? Heart disease Paternal Grandfather Past Surgical History: Procedure Laterality Date ??? BREAST LUMPECTOMY Right 20 years ago- extracted and benign ??? CARDIAC CATHETERIZATION 2002 no stents. ??? CARDIAC CATHETERIZATION N/A 10/26/2016 Procedure: Left Heart Cath; Surgeon: Lisa Hensley MD; [facility]; Service: ??? CATARACT EXTRACTION, BILATERAL ??? HYSTERECTOMY enlarged uterus, bleeding, ~1999 Past Medical History: Diagnosis Date ??? Asthma ??? Atrial tachycardia ??? Chest pain 06/04/2017 ??? CHF (congestive heart failure) ??? Coronary artery disease 11/05/2016 ??? Hiatal hernia ??? Hypertension ??? Irritable bowel ??? Myocardial infarction NSTEMI 10/2016, cath without intervention, small vessel disease, medical management ??? Nephrolithiasis ??? DONNA (obstructive sleep apnea) could not tolerate cpap. ??? Palpitations 11/05/2016 Recurrent-tachyarrhythmias Normal Holter, October 2011. Event recorder shows atrial tachycardia at145 beats per minute, which is symptomatic. ??? PUD (peptic ulcer disease) 11/05/2016 ??? Takotsubo cardiomyopathy Initially diagnosed at [place] 2008. EF 20 at that time. 2008 EF 55% History Smoking Status ??? Never Smoker Smokeless Tobacco ??? Never Used History Alcohol Use No Past Surgical History: Procedure Laterality Date ??? BREAST LUMPECTOMY Right 20 years ago- extracted and benign ??? CARDIAC CATHETERIZATION 2002 no stents. ??? CARDIAC CATHETERIZATION N/A 10/26/2016 Procedure: Left Heart Cath; Surgeon: Lisa Hensley MD; Location: [facility] INVASIVE LOCATION; Service: ??? CATARACT EXTRACTION, BILATERAL ??? HYSTERECTOMY enlarged uterus, bleeding, ~1999 Review of Systems Review of Systems Constitution: Positive for malaise/fatigue. HENT: Negative. Eyes: Negative. Cardiovascular: Positive for chest pain. Negative for dyspnea on exertion, irregular heartbeat, legswelling, near-syncope, orthopnea, palpitations, paroxysmal nocturnal dyspnea and syncope. Respiratory: Negative. Hematologic/Lymphatic: Negative. Skin: Negative. Musculoskeletal: Negative. Gastrointestinal: Negative. Genitourinary: Negative. Neurological: Positive for light-headedness. Psychiatric/Behavioral: Negative. Allergic/Immunologic: Negative. Objective: height is 167.6 cm (66 ) and weight is 75.8 kg (167 lb). Her oral temperature is 97.6 ??F (36.4 ??C). Her blood pressure is 143/90 and her pulse is 73. Her respiration is 18 and oxygen saturation is 100%. Physical Exam Constitutional: She is oriented to person, place, and time. She appears well- developed and well-nourished. HENT: Head: Normocephalic. Eyes: Pupils are equal, round, and reactive to light. Neck: Normal range of motion. Neck supple. Cardiovascular: Normal rate, regular rhythm, normal heart sounds and intact distal pulses. Pulmonary/Chest: Effort normal and breath sounds normal. Abdominal: Soft. Musculoskeletal: Normal range of motion. She exhibits no edema. Neurological: She is alert and oriented to person, place, and time. Skin: Skin is warm and dry. Psychiatric: She has a normal mood and affect. Her behavior is normal. Judgment and thought contentnormal. Vitals reviewed. Cardiographics ECG: NSR at rate of 62 bpm . Echocardiogram: not done Imaging Chest x-ray: no acute disease Lab Review Lab Results Component Value Date GLUCOSE 122 (H) 02/07/2018 BUN 16 02/07/2018 CREATININE 0.80 02/07/2018 EGFRIFNONA 71 02/07/2018 BCR 20.0 02/07/2018 CO2 27.0 02/07/2018 CALCIUM 10.2 02/07/2018 ALBUMIN 4.70 02/07/2018 LABIL2 1.7 02/07/2018 AST 22 02/07/2018 ALT 23 02/07/2018 Lab Results Component Value Date WBC 6.67 02/07/2018 HGB 13.8 02/07/2018 HCT 41.5 02/07/2018 MCV 86.8 02/07/2018 PLT 351 02/07/2018 Lab Results Component Value Date CHOL 137 06/04/2017 Lab Results Component Value Date TRIG 54 06/04/2017 Lab Results Component Value Date HDL 52 06/04/2017 Assessment: 72 yr old hypertensive, hyperlipidemic white female with a history of Takotsubo cardiomyopathy who presented to the ED this am with lighthreadedness, sharp chest pain and chest pressure with radiation into her left jaw. This is her 3rd episode in 2 weeks. Serial EKG's and Troponins negative X 2. Plan: 1. CT angio of chest to evaluate CAD and assess for aortic dissection. If negative would begin Imdur 30 mg po daily and follow up with PCP. Scribed for Jeferson Ceballos MD by Juana Garcia RN. 02/07/2018 11:23 AM .I, Jeferson Ceballos MD, personally performed the services described in this documentation as scribedby the above named individual in my presence, and it is both accurate and complete. 02/07/2018 12:07 PM documented in this encounter ED Notes * Tomeka Mcdaniel PA - 02/07/2018 9:20 AM EDT Subjective Pt is a 72 female presenting to ED with chest pain / pressure. She woke up this morning and was making coffee when the left sided chest pressure began suddenly. The pressure has been constant since it started but she is also having intermittent episodes of sharp pain in her chest. The pain radiatesinto her upper back, left jaw and left arm. She took x2 NTG and has had some moderate relief of thechest pressure but it is still present. Pt explains she has had multiple similar episodes of chest pain over the last 1.5 weeks. She was admitted to [place] last weekend for similar pain. She denies heart cath or ECHO last week. She then was pain free for several days and enjoyed a trip to [place] with family. The pain began again on Wednesday 2 days ago. Pt with hx of Cardiomyopathy Takotsubo and is followed by Dr. Diego. Her last recurrent episode 10/2016 and at that time had a heart cath with near normal coronary arteries and EF of 41%. She also takes meds for HTN and HLD. She states Dr. Diego started her on Coq-10 and lowered her Pravastatin dose 3 weeks ago. She then developed severe dizziness. She was taken off the Coq-10 a week ago and the dizziness has since resolved. She states she wore a holter monitor for 30 days 11/2017-12/2017 and it was normal . Pt denies new stressors or any other significant life changes. She denies syncope, fever, cough, SOB, N,V,D, abdominal pain or leg edema. History provided by: Patient and spouse Chest Pain Pain location: L chest Pain quality: pressure and sharp (intermittent ) Pain radiates to: L jaw, upper back and L arm Onset quality: Sudden Duration: Around 7am today. Progression: Partially resolved Chronicity: Recurrent Context: at rest Context: not eating, not lifting and not stress Relieved by: Nitroglycerin (partial ) Associated symptoms: back pain, dizziness and near-syncope Associated symptoms: no abdominal pain, no altered mental status, no anxiety, no cough, no diaphoresis, no fatigue, no fever, no lower extremity edema, no nausea, no numbness, no palpitations, no shortness of breath, no syncope, no vomiting and no weakness Risk factors: coronary artery disease, high cholesterol and hypertension Risk factors: no diabetes mellitus, no prior DVT/PE and no smoking Review of Systems Constitutional: Negative for diaphoresis, fatigue and fever. Respiratory: Negative for cough and shortness of breath. Cardiovascular: Positive for chest pain and near-syncope. Negative for palpitations, leg swelling and syncope. Gastrointestinal: Negative for abdominal pain, nausea and vomiting. Musculoskeletal: Positive for arthralgias (Left shoulder, no injury ) and back pain. Negative for neck pain and neck stiffness. Neurological: Positive for dizziness. Negative for weakness and numbness. Psychiatric/Behavioral: Negative for confusion. The patient is not nervous/anxious. All other systems reviewed and are negative. Past Medical History: Diagnosis Date ??? Asthma ??? Atrial tachycardia ??? Chest pain 06/04/2017 ??? CHF (congestive heart failure) ??? Coronary artery disease 11/05/2016 ??? Hiatal hernia ??? Hypertension ??? Irritable bowel ??? Myocardial infarction NSTEMI 10/2016, cath without intervention, small vessel disease, medical management ??? Nephrolithiasis ??? DONNA (obstructive sleep apnea) could not tolerate cpap. ??? Palpitations 11/05/2016 Recurrent-tachyarrhythmias Normal Holter, October 2011. Event recorder shows atrial tachycardia at145 beats per minute, which is symptomatic. ??? PUD (peptic ulcer disease) 11/05/2016 ??? Takotsubo cardiomyopathy Initially diagnosed at [place] 2007. EF 20 at that time. 2008 EF 55% Allergies Allergen Reactions ??? Penicillins Hives ??? Phenergan [Promethazine Hcl] Hives ??? Statins Myalgia ??? Sudafed [Pseudoephedrine Hcl] Rash ??? Sulfa Antibiotics Rash Past Surgical History: Procedure Laterality Date ??? BREAST LUMPECTOMY Right 20 years ago- extracted and benign ??? CARDIAC CATHETERIZATION 2002 no stents. ??? CARDIAC CATHETERIZATION N/A 10/26/2016 Procedure: Left Heart Cath; Surgeon: Lisa Hensley MD; [facility]; Service: ??? CATARACT EXTRACTION, BILATERAL ??? HYSTERECTOMY enlarged uterus, bleeding, ~2000 Family History Problem Relation Age of Onset ??? Heart disease Mother ??? Stroke Mother ??? Heart disease Father ??? Cancer Sister ??? Stroke Maternal Grandmother ??? Heart disease Maternal Grandfather ??? Heart failure Maternal Grandfather ??? Heart failure Paternal Grandmother ??? Heart disease Paternal Grandfather Social History Social History ??? Marital status: ??? Number of children: 2 Occupational History ??? Retired Social History Main Topics ??? Smoking status: Never Smoker ??? Smokeless tobacco: Never Used ??? Alcohol use No ??? Drug use: No ??? Sexual activity: Defer Other Topics Concern ??? Not on file Social History Narrative Patient drinks 1 servings of caffeine per day, patient lives at home with her . Objective Physical Exam Constitutional: She is oriented to person, place, and time. Vital signs are normal. She appears well-developed. HENT: Head: Atraumatic. Nose: Nose normal. Mouth/Throat: Mucous membranes are normal. Eyes: Conjunctivae, EOM and lids are normal. Pupils are equal, round, and reactive to light. Neck: Normal range of motion. Neck supple. Cardiovascular: Normal rate, regular rhythm and normal heart sounds. Pulmonary/Chest: Effort normal and breath sounds normal. She has no wheezes. Abdominal: Soft. She exhibits no distension. There is no tenderness. There is no rebound and no guarding. Musculoskeletal: Normal range of motion. She exhibits no edema or tenderness. Neurological: She is alert and oriented to person, place, and time. No sensory deficit. Skin: Skin is warm and dry. No rash noted. No erythema. Psychiatric: She has a normal mood and affect. Her speech is normal and behavior is normal. Nursing note and vitals reviewed. Procedures ED Course ED Course Comment By Time Contacted [place] with Cards for ED consult. MILANA Monge 02/07 2313 Re-examined patient several times in ED. Chest pain resolved with nitropaste. Discussed results andtreatment plan. Reviewed cardiology consult note. Dr. Ceballos evaluated patient in ED. Instructed to DC home afternormal CT angio. They sent Imdur Rx to patient's pharmacy. Reviewed old records. Recent Results (from the past 24 hour(s)) Comprehensive Metabolic Panel Collection Time: 02/07/18 9:04 AM Result Value Ref Range Glucose 122 (H) 70 - 100 mg/dL BUN 16 9 - 23 mg/dL Creatinine 0.80 0.60 - 1.30 mg/dL Sodium 139 132 - 146 mmol/L Potassium 4.3 3.5 - 5.5 mmol/L Chloride 102 99 - 109 mmol/L CO2 27.0 20.0 - 31.0 mmol/L Calcium 10.2 8.7 - 10.4 mg/dL Total Protein 7.4 5.7 - 8.2 g/dL Albumin 4.70 3.20 - 4.80 g/dL ALT (SGPT) 23 7 - 40 U/L AST (SGOT) 22 0 - 33 U/L Alkaline Phosphatase 81 25 - 100 U/L Total Bilirubin 0.9 0.3 - 1.2 mg/dL eGFR Non Amer 71 >60 mL/min/1.73 Globulin 2.7 gm/dL A/G Ratio 1.7 1.5 - 2.5 g/dL BUN/Creatinine Ratio 20.0 7.0 - 25.0 Anion Gap 10.0 3.0 - 11.0 mmol/L Lipase Collection Time: 02/07/18 9:04 AM Result Value Ref Range Lipase 39 6 - 51 U/L BNP Collection Time: 02/07/18 9:04 AM Result Value Ref Range BNP 12.0 0.0 - 100.0 pg/mL Light Blue Top Collection Time: 02/07/18 9:04 AM Result Value Ref Range Extra Tube hold for add-on Green Top (Gel) Collection Time: 02/07/18 9:04 AM Result Value Ref Range Extra Tube Hold for add-ons. Lavender Top Collection Time: 02/07/18 9:04 AM Result Value Ref Range Extra Tube hold for add-on Gold Top - SST Collection Time: 02/07/18 9:04 AM Result Value Ref Range Extra Tube Hold for add-ons. CBC Auto Differential Collection Time: 02/07/18 9:04 AM Result Value Ref Range WBC 6.67 3.50 - 10.80 10*3/mm3 RBC 4.78 3.89 - 5.14 10*6/mm3 Hemoglobin 13.8 11.5 - 15.5 g/dL Hematocrit 41.5 34.5 - 44.0 % MCV 86.8 80.0 - 99.0 fL MCH 28.9 27.0 - 31.0 pg MCHC 33.3 32.0 - 36.0 g/dL RDW 12.5 11.3 - 14.5 % RDW-SD 39.8 37.0 - 54.0 fl MPV 10.0 6.0 - 12.0 fL Platelets 351 150 - 450 10*3/mm3 Neutrophil % 51.1 41.0 - 71.0 % Lymphocyte % 35.1 24.0 - 44.0 % Monocyte % 11.2 0.0 - 12.0 % Eosinophil % 1.9 0.0 - 3.0 % Basophil % 0.6 0.0 - 1.0 % Immature Grans % 0.1 0.0 - 0.6 % Neutrophils, Absolute 3.40 1.50 - 8.30 10*3/mm3 Lymphocytes, Absolute 2.34 0.60 - 4.80 10*3/mm3 Monocytes, Absolute 0.75 0.00 - 1.00 10*3/mm3 Eosinophils, Absolute 0.13 0.00 - 0.30 10*3/mm3 Basophils, Absolute 0.04 0.00 - 0.20 10*3/mm3 Immature Grans, Absolute 0.01 0.00 - 0.03 10*3/mm3 POC Troponin, Rapid Collection Time: 02/07/18 9:04 AM Result Value Ref Range Troponin I 0.02 0.00 - 0.07 ng/mL POC Troponin, Rapid Collection Time: 02/07/18 11:28 AM Result Value Ref Range Troponin I 0.01 0.00 - 0.07 ng/mL Note: In addition to lab results from this visit, the labs listed above may include labs taken at another facility or during a different encounter within the last 24 hours. Please correlate lab timeswith ED admission and discharge times for further clarification of the services performed during this visit. XR Chest 1 View Final Result Chronic changes seen within the lung singh with no acute parenchymal disease. E: 02/07/2018 This report was finalized on 02/07/2018 10:[address] Amber Torres MD. CT Cardiac Morph With 3D Image (Results Pending) CT Angiogram Chest With & Without Contrast (Results Pending) Vitals: 02/07/18 1459 02/07/18 1504 02/07/18 1509 02/07/18 1600 BP: 144/72 140/71 143/72 151/79 BP Location: Patient Position: Pulse: 67 71 74 64 Resp: 20 20 20 Temp: TempSrc: SpO2: 100% 99% 100% 100% Weight: Height: Medications sodium chloride 0.9 % flush 10 mL (not administered) metoprolol tartrate (LOPRESSOR) injection 5 mg (0 mg Intravenous Hold 02/07/18 1626) metoprolol tartrate (LOPRESSOR) injection 5 mg (5 mg Intravenous Given 02/07/18 1359) aspirin chewable tablet 324 mg (324 mg Oral Given 02/07/18 1033) nitroglycerin (NITROSTAT) ointment 1 inch (1 inch Topical Given 02/07/18 1033) nitroglycerin (NITROSTAT) SL tablet (0.4 mg Sublingual Given 02/07/18 1459) iopamidol (ISOVUE-370) 76 % injection 100 mL (100 mL Intravenous Given 02/07/18 1607) ECG/EMG Results (last 24 hours) Procedure Component Value Units Date/Time ECG 12 Lead [[id number]] Collected: 02/07/18 0856 Updated: 02/07/18 0856 MDM Final diagnoses: Chest pain, unspecified type MILANA Monge 02/07/18 1723 Cosigned by Roc Alejandro MD at 02/08/2018 2:17 PM EDT Associated attestation - Roc Alejandro MD - 02/08/2018 2:17 PM EDT For this patient encounter, I reviewed the COTTON BROKER or PA documentation, treatment plan, and medical decision making. Roc Alejandro MD 02/08/2018 2:17 PM documented in this encounter Plan of Treatment Upcoming Encounters Date Type Department Care Team (Late st Contact Info) Description 12/22/2024 9:50 AM EST Office Visit [facility] [address] [facility] [address] [place] [address] Go Zazueta MD [address] [facility] [address] [place], [place] [id number] 01/15/2025 9:45 AM EDT Office Visit [facility] [address] [facility] [address] [place] [address] Joy Skinner APRN [address] [facility] [address] [place], [place] [id number] documented as of this encounter Procedures Procedure Name Priority Date/Time Associated Diagnosis Comments CT CARDIAC MORPH W 3D IMAGE STAT 02/07/2018 4:[address] ANGIOGRAM CHEST W WO CONTRAST STAT 02/07/2018 4:04 PM EDT POCT TROPONIN I, RAPID STAT 8 11:28 AM EDT ECG 12-LEAD STAT 02/07/2018 11:23 AM EDT XR CHEST 1 VW STAT 02/07/2018 9:07 AM EDT GOLD TOP - SST STAT 02/07/2018 9:04 AM EDT DK GREEN TOP STAT 02/07/2018 9:04 AM EDT POCT TROPONIN I, RAPID STAT 8 9:04 AM EDT CBC WITH AUTO DIFFERENTIAL STAT 02/07/2018 9:04 AM EDT LAVENDER TOP STAT 02/07/2018 9:04 AM EDT LIGHT BLUE TOP STAT 02/07/2018 9:04 AM EDT RAINBOW DRAW STAT 02/07/2018 9:04 AM EDT CBC AND DIFFERENTIAL STAT 02/07/2018 9:04 AM EDT B-TYPE NATRIURETIC PEPTIDE STAT 02/07/2018 9:04 AM EDT LIPASE STAT 02/07/2018 9:04 AM EDT COMPREHENSIVE METABOLIC PANEL STAT 02/07/2018 9:04 AM EDT ECG 12-LEAD STAT 02/07/2018 8:56 AM EDT OXYGEN THERAPY STAT 02/07/2018 8:53 AM EDT documented in this encounter Results * CT Angiogram Chest With & Without Contrast (02/07/2018 4:04 PM EDT) Anatomical Region Laterality Modality Chest, Vascular N/A Computed Tomogra phy 02/07/2018 4:46 PM EDT Impressions 02/07/2018 5:17 PM EDT 1. ??Normal CTA of the aorta, aortic valve and aortic valve leaflets as described. 2. ??Normal large and great vessels of the transverse aortic arch. 3. ??No mitral or aortic valve disease is seen. There is no aortic aneurysm or dissection. 4. ??Great vessels from the thoracoabdominal aorta and from the abdominal aorta are normal. 5. ??5 mm nonobstructing stone right kidney. 6. ??No evidence of cardiomegaly or pericardial effusion. 7. ??No evidence of significant pulmonary disease, mass or nodule. No evidence of edema or free fluid. 8. ??Therefore, the CTA data sets of the chest are essentially negative. D: ??02/07/2018 E: ??02/07/2018 This report was finalized on 02/07/2018 5:[address] Momo Bush MD. Narrative 02/07/2018 5:17 PM EDT EXAMINATION: CT ANGIOGRAM CHEST W WO CONTRAST-02/07/2018: INDICATION: Aortic dz, non-traumatic, known or suspect. ? TECHNIQUE: ??CTA datasets of the chest and the aortic anatomy was performed with intravenous contrast. 2-D and 3-D reconstructed reformatted data sets were formulated at the workstation. The radiation dose reduction device was turned on for each scan per the ALARA (As Low as Reasonably Achievable) protocol. COMPARISON: NONE. FINDINGS: 1. The aortic valve is normal with no evidence of dilatation of the valve ring. Aortic valve leaflets are normal. There is no calcific aortic disease. 2. There is no aortic aneurysm or dissection. Origin of the great vessels from the transverse arch is normal. Descending thoracic aorta, transverse arch and ascending aorta are normal. 3. The celiac axis and SMA are patent. The right renal artery is singular, patent and smooth. There is a common trunk with 3 arborization vessels to the left kidney, all of which are patent. 4. The thoracic inlet, aortopulmonary window, pulmonary arterial circulation and hilar areas are normal. Pericardium is unremarkable. There is no pericardial effusion. Central adenopathy is not identified in the mediastinum or hilar areas. 5. Images into the upper abdomen demonstrate no evidence of mass or significant abnormality of the liver, spleen, adrenal glands or pancreas. The gallbladder is negative for abnormal radiodensities. Retrocrural space is clear. There is a 5 mm nonobstructing stone right kidney. Procedure Note Momo Bush MD - 02/07/2018 EXAMINATION: CT ANGIOGRAM CHEST W WO CONTRAST-02/07/2018: INDICATION: Aortic dz, non-traumatic, known or suspect. TECHNIQUE: CTA datasets of the chest and the aortic anatomy was performed with intravenous contrast. 2-D and 3-D reconstructed reformatted data sets were formulated at the workstation. The radiation dose reduction device was turned on for each scan per the ALARA (As Low as Reasonably Achievable) protocol. COMPARISON: NONE. FINDINGS: 1. The aortic valve is normal with no evidence of dilatation of the valve ring. Aortic valve leaflets are normal. There is no calcific aortic disease. 2. There is no aortic aneurysm or dissection. Origin of the great vessels from the transverse arch is normal. Descending thoracic aorta, transverse arch and ascending aorta are normal. 3. The celiac axis and SMA are patent. The right renal artery is singular, patent and smooth. There is a common trunk with 3 arborization vessels to the left kidney, all of which are patent. 4. The thoracic inlet, aortopulmonary window, pulmonary arterial circulation and hilar areas are normal. Pericardium is unremarkable. There is no pericardial effusion. Central adenopathy is not identified in the mediastinum or hilar areas. 5. Images into the upper abdomen demonstrate no evidence of mass or significant abnormality of the liver, spleen, adrenal glands or pancreas. The gallbladder is negative for abnormal radiodensities. Retrocrural space is clear. There is a 5 mm nonobstructing stone right kidney. IMPRESSION: 1. Normal CTA of the aorta, aortic valve and aortic valve leaflets as described. 2. Normal large and great vessels of the transverse aortic arch. 3. No mitral or aortic valve disease is seen. There is no aortic aneurysm or dissection. 4. Great vessels from the thoracoabdominal aorta and from the abdominal aorta are normal. 5. 5 mm nonobstructing stone right kidney. 6. No evidence of cardiomegaly or pericardial effusion. 7. No evidence of significant pulmonary disease, mass or nodule. No evidence of edema or free fluid. 8. Therefore, the CTA data sets of the chest are essentially negative. E: 02/07/2018 This report was finalized on 02/07/2018 5:[address] Momo Bush MD. Kev Ceballos IV, MD IMG CT ORDERABLE S Final Result * CT Cardiac Morph With 3D Image (02/07/2018 4:04 PM EDT) Anatomical Region Laterality Modality Chest N/A Computed Tomogra phy 02/08/2018 7:55 AM EDT Impressions 02/08/2018 11:12 AM EDT 1. Calcium score 29.4, mild calcification category. 2. No evidence of aortic or mitral valvular calcifications. 3. Normal heart size. Normal pericardium. No pericardial disease. 4. CTA datasets of the coronary circulation demonstrate only minimal sporadic calcium with no evidence of a dominant high-grade focal plaque lesion. Focal stenosis or high-grade luminal embarrassment is not identified. 5. There is no anomaly of coronary origin. 6. Significant coronary disease is, therefore, not currently identified. 7. There is no calcific aortic or mitral valve disease. There is no coronary origin anomaly. There is no evidence of significant vascular disease within the heart or the immediate great vessels from the heart. The left atrium, pulmonary veins and left atrial appendage are likewise normal. Pulmonary circulation appears unremarkable. D: ??02/07/2018 E: ??02/08/2018 This report was finalized on 02/08/2018 11:[address] Momo Bush MD. Narrative 02/08/2018 11:12 AM EDT EXAMINATION: CT CARDIAC MORPH W 3D IMAGE- CT ANGIOGRAM OF THE CHEST AND THORACOABDOMINAL VASCULARITY INDICATION: Rule out obstructive coronary artery disease and aortic disease. TECHNIQUE: CTA datasets were performed on the heart, coronary circulation and great vessels using gated CTA techniques. 2-D and 3-D reconstructive reformatted datasets were formulated at the workstation. Reconstructed images were performed of the heart and coronary vessels. The radiation dose reduction device was turned on for each scan per the ALARA (As Low as Reasonably Achievable) protocol. COMPARISON: None. FINDINGS: 1. The initial preliminary precontrast calcium score datasets demonstrate a calcium score of 29.4 which is in the mild calcification category. There are only two calcified lesions identified, one LAD and one circumflex. This calcium score would carry a relatively low risk for major coronary event in the next 12 months. 2. The CTA datasets demonstrate no evidence of valvular calcification of the aortic or mitral valves. Cardiac chambers are of normal size. There is no pericardial disease, pericardial thickening or pericardial effusion. 3. The origin of the great vessels from the transverse arch is within normal limits. Aortic valve plane and aortic valve leaflets are normal. The mitral valve is normal. Left atrium is of normal size. Left atrial appendage is normal without evidence of thrombus. Pulmonary vein confluence to the left atrium is normal. 4. There is no pulmonary arterial disease or pulmonary embolus. Ascending, descending and transverse aortic arch are within normal limits. There is no thoracic aneurysm or dissection. There is no significant thoracic plaque. 5. Reconstructed datasets of the vascular structures demonstrate normal descending thoracic and normal thoracoabdominal aorta. The celiac axis and the SMA are widely patent. Procedure Note Momo Bush MD - 02/08/2018 EXAMINATION: CT CARDIAC MORPH W 3D IMAGE- CT ANGIOGRAM OF THE CHEST AND THORACOABDOMINAL VASCULARITY INDICATION: Rule out obstructive coronary artery disease and aortic disease. TECHNIQUE: CTA datasets were performed on the heart, coronary circulation and great vessels using gated CTA techniques. 2-D and 3-D reconstructive reformatted datasets were formulated at the workstation. Reconstructed images were performed of the heart and coronary vessels. The radiation dose reduction device was turned on for each scan per the ALARA (As Low as Reasonably Achievable) protocol. COMPARISON: None. FINDINGS: 1. The initial preliminary precontrast calcium score datasets demonstrate a calcium score of 29.4 which is in the mild calcification category. There are only two calcified lesions identified, one LAD and one circumflex. This calcium score would carry a relatively low risk for major coronary event in the next 12 months. 2. The CTA datasets demonstrate no evidence of valvular calcification of the aortic or mitral valves. Cardiac chambers are of normal size. There is no pericardial disease, pericardial thickening or pericardial effusion. 3. The origin of the great vessels from the transverse arch is within normal limits. Aortic valve plane and aortic valve leaflets are normal. The mitral valve is normal. Left atrium is of normal size. Left atrial appendage is normal without evidence of thrombus. Pulmonary vein confluence to the left atrium is normal. 4. There is no pulmonary arterial disease or pulmonary embolus. Ascending, descending and transverse aortic arch are within normal limits. There is no thoracic aneurysm or dissection. There is no significant thoracic plaque. 5. Reconstructed datasets of the vascular structures demonstrate normal descending thoracic and normal thoracoabdominal aorta. The celiac axis and the SMA are widely patent. IMPRESSION: 1. Calcium score 29.4, mild calcification category. 2. No evidence of aortic or mitral valvular calcifications. 3. Normal heart size. Normal pericardium. No pericardial disease. 4. CTA datasets of the coronary circulation demonstrate only minimal sporadic calcium with no evidence of a dominant high-grade focal plaque lesion. Focal stenosis or high-grade luminal embarrassment is not identified. 5. There is no anomaly of coronary origin. 6. Significant coronary disease is, therefore, not currently identified. 7. There is no calcific aortic or mitral valve disease. There is no coronary origin anomaly. There is no evidence of significant vascular disease within the heart or the immediate great vessels from the heart. The left atrium, pulmonary veins and left atrial appendage are likewise normal. Pulmonary circulation appears unremarkable. E: 02/08/2018 This report was finalized on 02/08/2018 11:[address] Momo Bush MD. Kev Ceballos IV, MD IMG CT ORDERABLE S Final Result * POC Troponin, Rapid (02/07/2018 11:28 AM EDT) Troponin I 0.01 0.00 - 0.07 ng/mL 02/07/2018 11:46 AM EDT [facility] Comment:Serial Number: [id number]: [id number] Blood 02/07/2018 11:2 8 AM EDT 02/07/2018 11:46 AM EDT Roc Alejandro MD POINT OF CARE TEST ORDERA BLES Final Result [facility] [place] [address], * ECG 12 Lead (02/07/2018 11:23 AM EDT) 02/07/2018 11:2 3 AM EDT 02/07/2018 3:32 PM EDT Narrative ECG - 02/07/2018 3:33 PM EDT Test Reason : CHEST PAIN Blood Pressure : / mmHG Vent. Rate : 062 BPM ? Atrial Rate : 062 BPM ?? P-R Int : 156 ms ?QRS Dur : 074 ms ?QT Int : 430 ms ? P-R-T Axes : 021 007 028 degrees ?? QTc Int : 436 ms Normal sinus rhythm Low voltage QRS Cannot rule out Anterior infarct (cited on or before 07-FEB-2018) Abnormal ECG When compared with ECG of 07-FEB-2018 08:56, (Unconfirmed) Sinus rhythm has replaced Junctional rhythm Confirmed by JONATHAN ??ROC MARCOS ([id number]) on 02/07/2018 3:32:49 PM Referred By: ??jonathan ? Confirmed By:ROC ALEJANDRO ?? Procedure Note Roc Alejandro MD - 02/07/2018 Test Reason : CHEST PAIN Blood Pressure : / mmHG Vent. Rate : 062 BPM Atrial Rate : 062 BPM P-R Int : 156 ms QRS Dur : 074 ms QT Int : 430 ms P-R-T Axes : 021 007 028 degrees QTc Int : 436 ms Normal sinus rhythm Low voltage QRS Cannot rule out Anterior infarct (cited on or before 07-FEB-2018) Abnormal ECG When compared with ECG of 07-FEB-2018 08:56, (Unconfirmed) Sinus rhythm has replaced Junctional rhythm Confirmed by ROC ALEJANDRO MD ([id number]) on 02/07/2018 3:32:49 PM Referred By: jonathan Confirmed By:ROC ALEJANDRO MD us Roc Alejandro MD ECG ORDERABLES Final Res ult ECG * XR Chest 1 View (02/07/2018 9:07 AM EDT) Anatomical Region Laterality Modality Body N/A Radiographic Bonnie ging 02/07/2018 9:25 AM EDT Impressions 02/07/2018 10:13 AM EDT Chronic changes seen within the lung singh with no acute parenchymal disease. D: ??02/07/2018 E: ??02/07/2018 This report was finalized on 02/07/2018 10:[address] Amber Torres MD. Narrative 02/07/2018 10:13 AM EDT EXAMINATION: XR CHEST 1 VW-02/07/2018: INDICATION: Chest pain, triage protocol. COMPARISON: 09/29/2017. FINDINGS: Portable chest reveals cardiac and mediastinal silhouettes to be within normal limits. The lung singh are grossly clear. No focal parenchymal opacification present. ??No pleural effusion or pneumothorax. Degenerative changes seen within the spine. Pulmonary vascularity is within normal limits. ? Procedure Note Amber Torres MD - 02/07/2018 EXAMINATION: XR CHEST 1 VW-02/07/2018: INDICATION: Chest pain, triage protocol. COMPARISON: 09/29/2017. FINDINGS: Portable chest reveals cardiac and mediastinal silhouettes to be within normal limits. The lung singh are grossly clear. No focal parenchymal opacification present. No pleural effusion or pneumothorax. Degenerative changes seen within the spine. Pulmonary vascularity is within normal limits. IMPRESSION: Chronic changes seen within the lung singh with no acute parenchymal disease. E: 02/07/2018 This report was finalized on 02/07/2018 10:[address] Amber Torres MD. us Roc Alejandro MD IMG DIAGNOSTIC IMAGING OR DERABLES Final Result * POC Troponin, Rapid (02/07/2018 9:04 AM EDT) [facility] Troponin I 0.02 0.00 - 0.07 ng/mL 02/07/2018 9:25 AM EDT [facility] Comment:Serial Number: [id number]: [id number] Blood 02/07/2018 9:04 AM EDT 02/07/2018 9:25 AM EDT Roc Alejandro MD POINT OF CARE TEST ORDERA BLES Final Result [facility]
[address] [place] [address], * CBC Auto Differential (02/07/2018 9:04 AM EDT) [facility] WBC 6.67 3.50 - 10.80 10*3/mm3 02/07/2018 9:14 AM EDT [facility] RBC 4.78 3.89 - 5.14 10*6/mm3 02/07/2018 9:14 AM EDT [facility] Hemoglobin 13.8 11.5 - 15.5 g/dL 02/07/2018 9:14 AM EDT [facility] Hematocrit 41.5 34.5 - 44.0 % 02/07/2018 9:14 AM EDT [facility] MCV 86.8 80.0 - 99.0 fL [facility]2018 [facility] MCH 28.9 27.0 - 31.0 pg 02/07/2018 9:14 AM [facility] MCHC 33.3 32.0 - 36.0 g/dL 02/07/2018 9:14 AM [facility] RDW 12.5 11.3 - 14.5 % 02/07/2018 9:14 AM [facility] RDW-SD 39.8 37.0 - 54.0 fl 02/07/2018 9:14 AM [facility] MPV 10.0 6.0 - 12.0 fL 02/07/2018 9:14 AM [facility] Platelets 351 150 - 450 10*3/mm3 02/07/2018 9:14 AM [facility] Neutrophil % 51.1 41.0 - 71.0 % 02/07/2018 9:14 AM [facility] Lymphocyte % 35.1 24.0 - 44.0 % 02/07/2018 9:14 AM [facility] Monocyte % 11.2 0.0 - 12.0 % 02/07/2018 9:14 AM [facility] Eosinophil % 1.9 0.0 - 3.0 % 02/07/2018 9:14 AM [facility] Basophil % 0.6 0.0 - 1.0 % 02/07/2018 9:14 AM [facility] Immature Grans % 0.1 0.0 - 0.6 % 02/07/2018 9:14 AM [facility] Neutrophils, Absolute 3.40 1.50 - 8.30 10*3/mm3 02/07/2018 9:14 AM [facility] Lymphocytes, Absolute 2.34 0.60 - 4.80 10*3/mm3 02/07/2018 9:14 AM [facility] Monocytes, Absolute 0.75 0.00 - 1.00 10*3/mm3 02/07/2018 9:14 AM EDT [facility] Eosinophils, Absolute 0.13 0.00 - 0.30 10*3/mm3 02/07/2018 9:14 AM EDT [facility] Basophils, Absolute 0.04 0.00 - 0.20 10*3/mm3 02/07/2018 9:14 AM EDT [facility] Immature Grans, Absolute 0.01 0.00 - 0.03 10*3/mm3 02/07/2018 9:14 AM EDT [facility] Blood Venipuncture / Unknown 02/07/2018 9:04 AM EDT 02/07/2018 9:10 AM EDT us Roc Alejandro MD LAB BLOOD ORDERABLES Tanvi l Result Performing Organization Address City/[facility]/ZIP Co de Phone Number [facility]
[address] [place] [address], * Gold Top - SST (02/07/2018 9:04 AM EDT) Extra Tube Hold for add-ons. 02/07/2018 10:16 AM EDT [facility] Comment:Auto resulted. Blood Venipuncture / Unknown 02/07/2018 9:04 AM EDT 02/07/2018 9:10 AM EDT Roc Alejandro MD LAB BLOOD ORDER ONLY Tanvi l Result [facility]
[address] [place] [address], [place] [phone] * Lavender Top (02/07/2018 9:04 AM EDT) Extra Tube hold for add-on 02/07/2018 10:16 AM EDT [facility] Comment:Auto resulted Blood Venipuncture / Unknown 02/07/2018 9:04 AM EDT 02/07/2018 9:10 AM EDT Roc Alejandro MD LAB BLOOD ORDER ONLY Tanvi l Result Performing Organization Address City/[facility]/ZIP Co de Phone Number [facility]
[address] [place] [address], * Green Top (Gel) (02/07/2018 9:04 AM EDT) Extra Tube Hold for add-ons. 02/07/2018 10:16 AM EDT [facility] Comment:Auto resulted. Blood Venipuncture / Unknown 02/07/2018 9:04 AM EDT 02/07/2018 9:10 AM EDT Roc Alejandro MD LAB BLOOD ORDER ONLY Tanvi l Result Performing Organization Address [facility] Co de Phone Number [facility]
[address] [place] [address], * Light Blue Top (02/07/2018 9:04 AM EDT) Extra Tube hold for add-on 02/07/2018 10:16 AM EDT [facility] Comment:Auto resulted Blood Venipuncture / Unknown 02/07/2018 9:04 AM EDT 02/07/2018 9:10 AM EDT Roc Alejandro MD LAB BLOOD ORDER ONLY Tanvi l Result Performing Organization Address City/[facility]/ZIP Co de Phone Number [facility]
[address] [place] [address], * BNP (02/07/2018 9:04 AM EDT) BNP 12.0 0.0 - 100.0 pg/mL 02/07/2018 9:38 AM EDT [facility] Comment:Results may be false ly decreased if patient taking Biotin. Blood Venipuncture / Unknown 02/07/2018 9:04 AM EDT 02/07/2018 9:10 AM EDT Roc Alejandro MD LAB BLOOD ORDERABLES Tanvi l Result [facility]
[address] [place] [address], * Lipase (02/07/2018 9:04 AM EDT) Lipase 39 6 - 51 U/L 02/07/2018 9:38 AM EDT [facility] Blood Venipuncture / Unknown 02/07/2018 9:04 AM EDT 02/07/2018 9:10 AM EDT Roc Alejandro MD LAB BLOOD ORDERABLES Tanvi l Result Performing Organization Address City/[facility]/ZIP Co de Phone Number [facility]
[address] [place] [address], * (ABNORMAL) Comprehensive Metabolic Panel (02/07/2018 9:04 AM EDT) Glucose 122(H) 70 - 100 mg/dL 02/07/2018 9:38 AM EDT [facility] BUN 16 9 - 23 mg/dL 02/07/2018 9:38 AM EDT [facility] Creatinine 0.80 0.60 - 1.30 mg/dL 02/07/2018 9:38 AM EDT [facility] Sodium 139 132 - 146 mmol/L 02/07/2018 9:38 AM EDT [facility] Potassium 4.3 3.5 - 5.5 mmol/L 02/07/2018 9:38 AM EDT [facility] Chloride 102 99 - 109 mmol/L 02/07/2018 9:38 AM EDT [facility] CO2 27.0 20.0 - 31.0 mmol/L 02/07/2018 9:38 AM EDT [facility] Calcium 10.2 8.7 - 10.4 mg/dL 02/07/2018 9:38 AM [facility] Total Protein 7.4 5.7 - 8.2 g/dL 02/07/2018 9:38 AM [facility] Albumin 4.70 3.20 - 4.80 g/dL 02/07/2018 9:38 AM [facility] ALT (SGPT) 23 7 - 40 U/L 02/07/2018 9:38 AM [facility] AST (SGOT) 22 0 - 33 U/L 02/07/2018 9:38 AM [facility] Alkaline Phosphatase 81 25 - 100 U/L 02/07/2018 9:38 AM [facility] Total Bilirubin 0.9 0.3 - 1.2 mg/dL 02/07/2018 9:38 AM [facility] eGFR Non Amer 71 >60 mL/min/1.7 3 02/07/2018 9:38 AM [facility] Globulin 2.7 gm/dL 02/07/2018 9:38 AM [facility] A/G Ratio 1.7 1.5 - 2.5 g/dL 02/07/2018 9:38 AM [facility] BUN/Creatinine Ratio 20.0 7.0 - 25.0 02/07/2018 9:38 AM [facility] Anion Gap 10.0 3.0 - 11.0 mmol/L 02/07/2018 9:38 AM [facility] Blood Venipuncture / Unknown 02/07/2018 9:04 AM EDT 02/07/2018 9:10 AM [facility] - 02/07/2018 9:38 AM T [employer] Guidelines Stage ? Description ?GFR 1 ? Normal or High ? 90+ 2 ? Mild decrease ?60-89 3 ? Moderate decrease ??30-59 4 ? Severe decrease ?15-29 5 ? Kidney failure ? <15 us Roc Alejandro MD LAB BLOOD ORDERABLES Tanvi best Result [facility]
[address] [place] [address], * ECG 12 Lead (02/07/2018 8:56 AM EDT) 02/07/2018 8:56 AM EDT 02/07/2018 3:32 PM EDT Narrative ECG - 02/07/2018 3:33 PM EDT Test Reason : chest pain Blood Pressure : / mmHG Vent. Rate : 065 BPM ? Atrial Rate : 067 BPM ?? P-R Int : 000 ms ?QRS Dur : 074 ms ?QT Int : 418 ms ? P-R-T Axes : 000 017 037 degrees ?? QTc Int : 434 ms Junctional rhythm Low voltage QRS Cannot rule out Anterior infarct , age undetermined Abnormal ECG When compared with ECG of 29-SEP-2017 12:49, Junctional rhythm has replaced Sinus rhythm Confirmed by JONATHAN ??ROC MARCOS ([id number]) on 02/07/2018 3:32:47 PM Referred By: ??edmd ? Confirmed By:ROC ALEJANDRO ??MD Procedure Note Roc Alejandro MD - 02/07/2018 Test Reason : chest pain Blood Pressure : / mmHG Vent. Rate : 065 BPM Atrial Rate : 067 BPM P-R Int : 000 ms QRS Dur : 074 ms QT Int : 418 ms P-R-T Axes : 000 017 037 degrees QTc Int : 434 ms Junctional rhythm Low voltage QRS Cannot rule out Anterior infarct , age undetermined Abnormal ECG When compared with ECG of 29-SEP-2017 12:49, Junctional rhythm has replaced Sinus rhythm Confirmed by ROC ALEJANDRO MD ([id number]) on 02/07/2018 3:32:47 PM Referred By: edmd Confirmed By:ROC ALEJANDRO MD us Roc Alejandro MD ECG ORDERABLES Final Res ult ECG documented in this encounter Visit Diagnoses Diagnosis Chest pain, unspecified type- Primary Atypical chest pain Other chest pain documented in this encounter Administered Medications Inactive Administered Medications - up to 3 most recent administrations Medication Order MAR Action Action Date Dose Rate Site aspirin chewable tablet 324 mg 324 mg, Oral, Once, On Wed02/07/18 at 0930, For 1 dose, Herbal/drug interaction: Avoid use with ginkgo biloba. Do not exceed 4 grams of aspirin in a 24 hr period. If given for pain, use the following pain scale: Mild Pain = Pain Score of 1-3, CPOT 1-2 Moderate Pain = Pain Score of 4-6, CPOT 3-4 Severe Pain = Pain Score of 7-10, CPOT 5-8, Indications: Chest pain protocolIndications:Chest pain protocol Given 02/07/2018 10:33 AM EDT 324 mg iopamidol (ISOVUE-370) 76 % injection 100 mL 100 mL, Intravenous, Once in Imaging, On Wed02/07/18 at 1607, For 1 dose Given 02/07/2018 4:07 PM EDT 100 mL metoprolol tartrate (LOPRESSOR) injection 5 mg 5 mg, Intravenous, Every 5 Minutes PRN, Heart Rate, As needed to get HR < 60, Starting on Wed02/07/18 at 1337 Given 02/07/2018 1:59 PM EDT 5 mg nitroglycerin (NITROSTAT) ointment 1 inch 1 inch, Topical, Once, On Wed02/07/18 at 0927, For 1 dose, Apply to chest wall. If scheduled every 6 hours, omit the midnight dose to allow for nitrate free interval. Given 02/07/2018 10:33 AM EDT 1 inch nitroglycerin (NITROSTAT) SL tablet Code / Trauma / Sedation Medication, Starting on Wed02/07/18 at 1459 Given 02/07/2018 2:59 PM EDT 0.4 mg sodium chloride 0.9 % flush 10 mL 10 mL, Intravenous, As Needed, Line Care, Starting on Wed02/07/18 at 0853 documented in this encounter Active and Recently Administered Medications Times are shown in EDT. Scheduled Medication Order 02/05/2018 02/06/2018 02/07/2018 aspirin chewable tablet 324 mg (COMPLETED) 324 mg, Oral, Once, On Wed02/07/18 at 0930, For 1 dose, Herbal/drug interaction: Avoid use with ginkgo biloba. Do not exceed 4 grams of aspirin in a 24 hr period. If given for pain, use the following pain scale: Mild Pain = Pain Score of 1-3, CPOT 1-2 Moderate Pain = Pain Score of 4-6, CPOT 3-4 Severe Pain = Pain Score of 7-10, CPOT 5-8, Indications: Chest pain protocol 1033 (Given - Provid er: Phong Moeller RN) iopamidol (ISOVUE-370) 76 % injection 100 mL (COMPLETED) 100 mL, Intravenous, Once in Imaging, On Wed02/07/18 at 1607, For 1 dose 1607 (Given - Provid er: Kuldeep Fontaine) metoprolol tartrate (LOPRESSOR) injection 5 mg 5 mg, Intravenous, Once, On Wed02/07/18 at 1338, For 1 dose 1626 (Hold - Provide r: Davis Al RN - Reason: Order parameters not met) nitroglycerin (NITROSTAT) ointment 1 inch (COMPLETED) 1 inch, Topical, Once, On Wed02/07/18 at 0927, For 1 dose, Apply to chest wall. If scheduled every 6 hours, omit the midnight dose to allow for nitrate free interval. 1033 (Given - Provid er: Phong Moeller RN) PRN Medication Order 02/05/2018 02/06/2018 02/07/2018 metoprolol tartrate (LOPRESSOR) injection 5 mg 5 mg, Intravenous, Every 5 Minutes PRN, Heart Rate, As needed to get HR < 60, Starting on Wed02/07/18 at 1337 1359 (Given - Provid er: Phong Moeller RN) nitroglycerin (NITROSTAT) SL tablet (COMPLETED) Code / Trauma / Sedation Medication, Starting on Wed02/07/18 at 1459 1459 (Given - Provid er: Rosalba Haile RN) sodium chloride 0.9 % flush 10 mL 10 mL, Intravenous, As Needed, Line Care, Starting on Wed02/07/18 at 0853 documented in this encounter Care Teams Process Excellence Manager Relationship Specialty Start Date End Date Davis Foote MD [address] [place] [address] PCP - General 09/18/15 07/21/22 documented as of this encounter
--- OUTSIDE RECORDS SUMMARY | 2024-10-02 13:11 | XMS_ITS | Encounter Summary ---
[facility] Address [address] [place] [address] Care Team Providers Care Hull Line Crew Member Name Role Phone Davis Foote MD Primary Care Provider [phone] Reason for Visit * Reason Comments Med Refill Encounter Details Date Type Department Care Team (Late st Contact Info) Description 01/21/2021 Refill [facility] CARDIOLOGY [address] [facility] [address] [place] [address] Abebe Diego MD [address] [facility] [address] [place], [place] [id number] Med Refill Social History Tobacco Use Types [...] Description 12/22/2024 9:50 AM EST Office Visit [facility] & [facility]ICINE [address] [place] [address] Go Zazueta MD [address] [facility] [address] [place], [place] [id number] 01/15/2025 9:45 AM EDT Office Visit [facility] CARDIOLOGY [address] [place] [address] Joy Skinner APRN [address] [place] [address] documented as of this encounter Visit Diagnoses Not on filedocumented in this encounter Care Teams Hull Line Crew Member Relationship Specialty Start Date End Date Davis Foote MD [address] [place] [id number] PCP - General 09/18/15 07/21/22 documented as of this encounter
--- OUTSIDE RECORDS SUMMARY | 2024-10-02 13:11 | XMS_ITS | Encounter Summary ---
[facility] Organization [facility] Address [address] [place] [address] Care Team Providers Care Clay Mixer Name Role Phone Davis Foote MD Primary Care Provider [phone] Encounter Details Date Type Department Care Team (Late st Contact Info) Description 01/25/2018 Telephone [facility] [address] [place] [address] Grisel Irwin, RN Social History Tobacco Use Types Packs/Day Years [...] Miscellaneous Notes * Telephone Encounter - Grisel Treviño RN - 01/25/2018 10:23 AM EDT Called and advised patient of holter monitor results, no AFIB, she verbalized understanding. documented in this encounter Plan of Treatment Upcoming Encounters Date Type Department Care Team (Late st Contact Info) Description 12/22/2024 9:50 AM EST Office Visit [facility] ORTHOPEDICS & SPORTS MEDICINE [address] [facility] [address] [place] [address] Go Zazueta MD [address] [facility] [address] [place], [place] [id number] 01/15/2025 9:45 AM EDT Office Visit [facility] CARDIOLOG[facility] [address] [place] [address] Joy Skinner APRN [address] [place], [place] [id number] documented as of this encounter Visit Diagnoses Not on filedocumented in this encounter Care Teams Clay Mixer Relationship Specialty Start Date End Date Davis Foote MD [address] [place] [address] [place] [address] PCP - General 09/18/15 07/21/22 documented as of this encounter
--- OUTSIDE RECORDS SUMMARY | 2024-10-02 13:11 | XMS_ITS | Encounter Summary ---
[facility] Address [address] [place] [address] Care Team Providers Care Manager Fast Food Name Role Phone Davis Foote MD Primary Care Provider [phone] Reason for Visit * Reason Comments Med Refill Encounter Details Date Type Department Care Team (Late st Contact Info) Description 10/16/2019 Refill [facility] CARDIOLOGY [address] [facility] [address] [place] [address] Abebe Diego MD [address] [facility] [address] [address] [place], [place] [phone] Med Refill Social History Tobacco Use Types [...] [facility] [address] [facility] [address] [place] [address] Go Zazueta MD [address] [facility] [address] [place], [place] [id number] 01/15/2025 9:45 AM EDT Office Visit [facility] CARDIOLOG[facility] [address] [place] [address] Joy Skinner APRN [address] [place] [address] documented as of this encounter Visit Diagnoses Not on filedocumented in this encounter Care Teams Manager Fast Food Relationship Specialty Start Date End Date Davis Foote MD [address] [place] [address] PCP - General 09/18/15 07/21/22 documented as of this encounter
--- OUTSIDE RECORDS SUMMARY | 2024-10-02 13:11 | XMS_ITS | Encounter Summary ---
Author Organization [facility] Address [address] [place] [address] Care Team Providers Care Miner Name Role Phone Davis Foote MD Primary Care Provider [phone] Encounter Details Date Type Department Care Team (Late st Contact Info) Description 02/25/2018 Telephone [facility] CARDIOLOGY [address] [place] [address] [address] [place] [address] Grisel Irwin RN Social History Tobacco Use Types Packs/Day [...] Telephone Encounter - Grisel Treviño RN - 02/25/2018 8:47 AM EDT Received call from Dr. Foote stating would like to speak with Dr. Diego regarding patient's recurring chest pain despite recent cardiac workup. He would like to discuss pro's and con's of medication changes as in stopping coreg and possibly starting a Calcium channel gail for possible coronary artery spasms. He also wants to discuss possibility of referring patient to [facility] for further evaluation. documented in this encounter Plan of Treatment Upcoming Encounters Date Type Department Care Team (Late st Contact Info) Description 12/22/2024 9:50 AM EST Office Visit [facility] ORTHOPEDICS & SPORTS MEDICINE [address] [facility] [address] [place] [address] Go Zazueta MD [address] [facility] [address] [place], [place] [phone] 01/15/2025 9:45 AM EDT Office Visit [facility] CARDIOLOGY [address] [facility] [address] [place] [address] Joy Skinner APRN [address] [facility] [address] [place], [place] [address] documented as of this encounter Visit Diagnoses Not on filedocumented in this encounter Care Teams Miner Relationship Specialty Start Date End Date Davis Foote MD [address] [place] [address] [place] [address] PCP - General 09/18/15 07/21/22 documented as of this encounter
--- OUTSIDE RECORDS SUMMARY | 2024-10-02 13:11 | XMS_ITS | Encounter Summary ---
[facility] Address [address] [place] [address] Care Team Providers Care Assistant Infant Teacher Name Role Phone Davis Foote MD Primary Care Provider [phone] Reason for Visit * Reason Comments Med Refill Encounter Details Date Type Department Care Team (Late st Contact Info) Description 07/19/[address] [facility] CARDIOLOGY [address] [facility] [place] [address] Abebe Diego MD [address] [facility] [address] [place] [id number] Med Refill Social History Tobacco Use Types [...] [facility] [address] [facility] [address] [place] [address] Go Zazueta MD [address] [facility] [address] [place], [place] [phone] 01/15/2025 9:45 AM EDT Office Visit [facility] CARDIOLOGY [address] [place] [address] Joy Skinner APRN [address] [place] [address] documented as of this encounter Visit Diagnoses Not on filedocumented in this encounter Care Teams Assistant Infant Teacher Relationship Specialty Start Date End Date Davis Foote MD [address] [place] [address] PCP - General 09/18/15 07/21/22 documented as of this encounter
--- OUTSIDE RECORDS SUMMARY | 2024-10-02 13:11 | XMS_ITS | Encounter Summary ---
[facility] Address [address] [place] [address] Care Team Providers Care Dispatcher Electric Power Name Role Phone Davis Foote MD Primary Care Provider [phone] Reason for Visit * Reason Onset Date Comments Med Refill 01/16/2020 Encounter Details Date Type Department Care Team (Late st Contact Info) Description 01/16/2020 Refill [facility] CARDIOLOGY [address] [place] [address] Abebe Diego MD [address] [facility] [address] [place] [id number] Med Refill Social History Tobacco Use Types [...] [facility] [address] [facility] [address] [place] [address] Go Zazueta MD [address] [facility] [address] [place], [place] [phone] 01/15/2025 9:45 AM EDT Office Visit [facility] CARDIOLOGY [address] [place] [address] Joy Skinner APRN [address] [facility] [address] [place] [address] documented as of this encounter Visit Diagnoses Not on filedocumented in this encounter Care Teams Dispatcher Electric Power Relationship Specialty Start Date End Date Davis Foote MD [address] [place] [address] PCP - General 09/18/15 07/21/22 documented as of this encounter
--- OUTSIDE RECORDS SUMMARY | 2024-10-02 13:11 | XMS_ITS | Encounter Summary ---
Author Organization [facility] Address [address] [place] [address] Care Team Providers Care Retail Delivery Driver Name Role Phone Davis Foote MD Primary Care Provider [phone] Reason for Visit * Reason Onset Date Comments Med Refill 12/04/2019 Encounter Details Date Type Department Care Team (Late st Contact Info) Description 12/04/2019 Refill [facility] CARDIOLOGY [address] [place] [address] Abebe Diego MD [address] [facility] [address] [address] [place] [id number] Med Refill Social History Tobacco Use Types [...] 9:50 AM EST Office Visit [facility] MEDICINE [address] [facility] [address] [place] [address] Go Zazueta MD [address] [facility] [address] [place], [place] [phone] 01/15/2025 9:45 AM EDT Office Visit [facility] CARDIOLOGY [address] [place] [address] Joy Skinner APRN [address] [facility] [address] [place] [address] documented as of this encounter Visit Diagnoses Diagnosis Takotsubo cardiomyopathy Takotsubo syndrome documented in this encounter Care Teams Retail Delivery Driver Relationship Specialty Start Date End Date Davis Foote MD [address] [place] [address] PCP - General 09/18/15 07/21/22 documented as of this encounter
--- OUTSIDE RECORDS SUMMARY | 2024-10-02 13:11 | XMS_ITS | Encounter Summary ---
[facility] Organization [facility] Address [address] [place] [address] Care Team Providers Care Thermoforming Machine Operator Name Role Phone Davis Foote MD Primary Care Provider [phone] Reason for Visit * Reason Comments Med Refill Encounter Details Date Type Department Care Team (Late st Contact Info) Description 11/08/2019 Refill [facility] CARDIOLOGY [address] [facility] [address] [place] [address] Abebe Diego MD [address] [facility] [address] [place], [place] [phone] Med Refill Social History Tobacco Use Types [...] Description 12/22/2024 9:50 AM EST Office Visit [facility]TS MEDICINE [address] [place] [address] Go Zazueta MD [address] [facility] [address] [place], [place] [address] 01/15/2025 9:45 AM EDT Office Visit [facility] CARDIOLOGY [address] [place] [address] Joy Skinner APRN [address] [place] [address] documented as of this encounter Visit Diagnoses Not on filedocumented in this encounter Care Teams Thermoforming Machine Operator Relationship Specialty Start Date End Date Davis Foote MD [address] [place] [address] PCP - General 09/18/15 07/21/22 documented as of this encounter
--- OUTSIDE RECORDS SUMMARY | 2024-10-02 13:11 | XMS_ITS | Encounter Summary ---
[facility] Address [address] [place] [address] Care Team Providers Care Life Insurance Sales Name Role Phone Davis Foote MD Primary Care Provider [phone] Encounter Details Date Type Department Care Team (Late Contact Info) Description 12/18/2020 10:00 AM EST Immunization [facility] COVID19 [facility] [address] [address] Social History Tobacco Use Types [...] 12/22/2024 9:50 AM EST Office Visit [facility] ORTHOPEDICS & SPORTS MEDICINE [address] [facility] [address] [place] [address] Go Zazueta MD [address] [facility] [address] [place] [id number] 01/15/2025 9:45 AM EDT Office Visit [facility] CARDIOLOGY [address] [facility] [address] [place] [address] Joy Skinner, FINISH MENDER [address] [place] [address] documented as of this encounter Visit Diagnoses Not on filedocumented in this encounter Care Teams Life Insurance Sales Relationship Specialty Start Date End Date Davis Foote MD [address] [place] [address] [place] [address] PCP - General 09/18/15 07/21/22 documented as of this encounter
--- OUTSIDE RECORDS SUMMARY | 2024-10-02 13:11 | XMS_ITS | Encounter Summary ---
[facility] Address [address] [place] [address] Care Team Providers Care Airplane Inspector Name Role Phone Davis Foote MD Primary Care Provider [phone] Reason for Visit * Reason Comments Med Refill Encounter Details Date Type Department Care Team (Late st Contact Info) Description 07/18/2019 Refill [facility] CARDIOLOGY [address] [facility] [place] [address] Abebe Diego MD [address] [facility] [address] [place] [id number] Med Refill Social History Tobacco Use Types [...] 12/22/2024 9:50 AM EST Office Visit [facility] ORTHOPEDICS & SPORTS MEDICINE [address] [facility] [address] [place] [address] Go Zazueta MD [address] [facility] [address] [place], [place] [phone] 01/15/2025 9:45 AM EDT Office Visit [facility] CARDIOLOGY [address] [place] [address] Joy Skinner APRN [address] [place] [address] documented as of this encounter Visit Diagnoses Diagnosis Takotsubo cardiomyopathy Takotsubo syndrome documented in this encounter Care Teams Airplane Inspector Relationship Specialty Start Date End Date Davis Foote MD [address] [place] [address] PCP - General 09/18/15 07/21/22 documented as of this encounter
--- OUTSIDE RECORDS SUMMARY | 2024-10-02 13:11 | XMS_ITS | Encounter Summary ---
[facility] [address] [place] [address] Care Team Providers Care Manager Sustainability Name Role Phone Davis Foote MD Primary Care Provider Reason for Visit * Reason Comments Dizziness Chest Pain Encounter Details Date Type Department Care Team (Late st Contact Info) Description 06/17/2018 10:38 AM EDT - 06/17/2018 2:42 PM EDT Emergency [facility] [address] [place] [id number] Jeferson Canas MD [address] [facility] [place] [address] Dizziness (Primary Dx) Discharge Disposition: Home or Self [...] Reading Time Taken Comments Blood Pressure 136/85 06/17/2018 2:29 PM EDT Pulse 65 06/17/2018 2:29 PM EDT Temperature 36.6 ??C (97.8 ??F) 06/17/2018 2:29 PM ED T Respiratory Rate 16 06/17/2018 2:29 PM EDT Oxygen Saturation 96% 06/17/2018 2:29 PM EDT Inhaled Oxygen Concentration - - Weight 76.2 kg (168 lb) 06/17/2018 10:30 AM EDT Height 167.6 cm (5' 6 ) 06/17/2018 10:30 AM EDT Body Mass Index 27.12 06/17/2018 10:30 AM EDT documented in this encounter Discharge Instructions * Discharge Instructions* Jeferson Canas MD - 06/17/2018 1:54 PM EDT No driving or operating equipment * Attachments The following attachments cannot be sent through Care Everywhere. * Dizziness (Vincentian) * Benign Positional Vertigo (Vincentian) documented in this encounter Medications at Time [...] mouth Daily. 30 capsule 11 01/11/2018 9 furosemide (LASIX) 20 MG tablet Take 20 mg by mouth As Needed. 0 isosorbide mononitrate (IMDUR) 30 MG 24 hr tablet Take 1 tablet by mouth Daily for 180 days. 90 tablet 1 02/07/2018 8 losartan-hydrochloro thiazide (HYZAAR) 50-12.5 MG per tabletIndications:Es sential hypertension,NICM (nonischemic cardiomyopathy) Take 1 tablet by mouth Daily. 90 tablet 3 07/07/2017 8 meclizine (ANTIVERT) 25 MG tablet Take 1 tablet by mouth 3 (Three) Times a Day As Needed for dizziness. 30 tablet 06/17/2018 1 nitroglycerin (NITROSTAT) 0.[address] 1 tablet under the tongue Every 5 (Five) Minutes As Needed for Chest Pain. Take no more than 3 doses in 15 minutes. 25 tablet 5 07/07/2017 0 omeprazole (priLOSEC) 40 MG capsule Take 1 capsule by mouth Daily. 90 capsule 3 07/07/2017 8 pitavastatin calcium (LIVALO) 2 MG tablet tablet Take 2 mg by mouth Every Night. 0 pravastatin (PRAVACHOL) 80 MG tablet Take 0.5 tablets by mouth Every Night. 90 tablet 3 01/11/2018 9 zolpidem (AMBIEN) 10 MG tablet Take 5 mg by mouth At Night As Needed for sleep. 1 documented as of this encounter ED Notes * Jeferson Canas MD - 06/17/2018 10:37 AM EDT Subjective Rachael Fleming is a 72 y.o.female who presents to the ED with c/o chest pressure with onset this morning. She reports that she suddenly developed chest pressure across her substernal chest region radiating to her back. She also notes that she developed dizziness describes as a im-balance type sensation, lightheadedness, nausea, and an upset stomach. She states that she experienced her sx suddenly when she woke up and got out of bed this morning. She denies any unusual exertional activity. Family also notes that she developed increased swelling across her left neck. She called her PCP, porsha CARVALHO, who recommended the pt visit the ED which prompted her visit. She also complains of headache which worsens with rapid eye movement and cough but denies fever, chills, congestion, BM changes, urinary sx, ear pain, decreased appetite, or any other complaints at this time. She denies any hx of sleep apnea. She recently stopped her amlodipine medication. The pt states that she swims frequently. History provided by: Patient Chest Pain Pain location: L chest and substernal area Pain quality: pressure Pain radiates to: Upper back Pain severity: Moderate Onset quality: Sudden Timing: Constant Progression: Worsening Chronicity: New Relieved by: None tried Worsened by: Nothing Ineffective treatments: None tried Associated symptoms: abdominal pain, cough, dizziness, headache and nausea Associated symptoms: no fever Review of Systems Constitutional: Negative for appetite change, chills, fever and unexpected weight change. HENT: Negative for congestion and ear pain. Respiratory: Positive for cough. Cardiovascular: Positive for chest pain. Gastrointestinal: Positive for abdominal pain and nausea. Negative for blood in stool, constipationand diarrhea. Genitourinary: Negative for decreased urine volume, difficulty urinating, dysuria, frequency, hematuria and urgency. Musculoskeletal: Neck swelling. Neurological: Positive for dizziness, light-headedness and headaches. All other systems reviewed and are negative. Chart Reviewed 10:37 AM 02/07/18 Problem List: ?? 1. Cardiomyopathy, Takotsubo's. a. Initial diagnosis (1996)??with subsequent recovery. b. Recurrence with diagnosis of Takotsubo syndrome (2007)??at the [facility]. c. Recurrence (10/26/2016) d. Resolved by echocardiogram (12/2016). 2. Coronary artery disease. a. Cardiac catheterization (08/1997): Normal EF. Normal coronary arteries. b. Cardiac catheterization??(06/2008): EF 20%. No significant coronary artery disease. c. Echocardiogram (01/2009): EF??55 +/- 5%. ?? d. C (10/26/2016): EF 20%. Takotsubo/stress-induced cardiomyopathy with severe [...] monitor-14 days (09/29/2017): Essentially normal Holter readings. ??No significant arrhythmia. e. Cardiac Event Monitor 12/20/17 revealing no abnormal findings. 4. Hypertension. 5. Obstructive sleep apnea: Non-compliant with CPAP machine. 6. Peptic ulcer disease. 7. Hiatal hernia. 8. Irritable bowel syndrome 9. Nephrolithiasis. 10. Hyperlipidemia 11. Surgeries. a. Breast lumpectomies extracted and benign. b. Hysterectomy. c. Bilateral cataract extraction with lens implantation. d. Right breast resection. Past Medical History: Diagnosis Date ??? Asthma [...] 11/05/2016 ??? Takotsubo cardiomyopathy Initially diagnosed at [facility] 2007. EF 20 at that time. 2009 EF 55% Allergies Allergen Reactions ??? Penicillins Hives ??? Phenergan [Promethazine Hcl] Hives ??? Statins Myalgia ??? Sudafed [Pseudoephedrine Hcl] Rash ??? Sulfa Antibiotics Rash Past Surgical History: Procedure Laterality Date ??? BREAST LUMPECTOMY Right 20 years ago- extracted and benign ??? CARDIAC CATHETERIZATION 2002 no stents. ??? CARDIAC CATHETERIZATION N/A 10/26/2016 Procedure: Left Heart Cath; Surgeon: Lisa Hensley MD; Location: [facility] CATH INVASIVE LOCATION; Service: ??? CATARACT EXTRACTION, BILATERAL ??? HYSTERECTOMY enlarged uterus, bleeding, ~1999 Family History Problem Relation Age of Onset [...] time. She appears well- developed and well-nourished. No distress. HENT: Head: Normocephalic and atraumatic. Nose: Nose normal. Eyes: Pupils are equal, round, and reactive to light. Conjunctivae are normal. No scleral icterus. Right eye exhibits nystagmus. 1-2 beats right lateral nystagmus. Neck: Normal range of motion. Neck supple. Neck carefully examined there is no mass,cysts, or no bruits. Cardiovascular: Normal rate, regular rhythm and normal heart sounds. No murmur heard. Pulmonary/Chest: Effort normal and breath sounds normal. No respiratory distress. Abdominal: Soft. Bowel sounds are normal. There is no tenderness. Mildly obese Musculoskeletal: Extremities are normal. No synovitis. Neurological: She is alert and oriented to person, place, and time. She displays normal reflexes. No cranial nerve deficit. Face symmetric, voice strong, tongue midline; Vision, hearing and speech all preserved. No pronatordrift. Slight dysmetria with right thumb to left ear. Good strength all 4 extremities. Skin: Skin is warm and dry. Psychiatric: She has a normal mood and affect. Her behavior is normal. Nursing note and vitals reviewed. Procedures ED Course Recent Results (from the past 24 hour(s)) Comprehensive Metabolic Panel Collection Time: 06/17/18 11:11 AM Result Value Ref Range Glucose 111 (H) 70 - 100 mg/dL BUN 12 9 - 23 mg/dL Creatinine 0.77 0.60 - 1.30 mg/dL Sodium 138 132 - 146 mmol/L Potassium 4.4 3.5 - 5.5 mmol/L Chloride 103 99 - 109 mmol/L CO2 29.0 20.0 - 31.0 mmol/L Calcium 10.2 8.7 - 10.4 mg/dL Total Protein 7.3 5.7 - 8.2 g/dL Albumin 4.57 3.20 - 4.80 g/dL ALT (SGPT) 22 7 - 40 U/L AST (SGOT) 18 0 - 33 U/L Alkaline Phosphatase 88 25 - 100 U/L Total Bilirubin 0.6 0.3 - 1.2 mg/dL eGFR Non Amer 74 >60 mL/min/1.73 Globulin 2.7 gm/dL A/G Ratio 1.7 1.5 - 2.5 g/dL BUN/Creatinine Ratio 15.6 7.0 - 25.0 Anion Gap 6.0 3.0 - 11.0 mmol/L BNP Collection Time: 06/17/18 11:11 AM Result Value Ref Range BNP 13.0 0.0 - 100.0 pg/mL CBC Auto Differential Collection Time: 06/17/18 11:11 AM Result Value Ref Range WBC 6.07 3.50 - 10.80 10*3/mm3 RBC 4.67 3.89 - 5.14 10*6/mm3 Hemoglobin 13.5 11.5 - 15.5 g/dL Hematocrit 40.2 34.5 - 44.0 % MCV 86.1 80.0 - 99.0 fL MCH 28.9 27.0 - 31.0 pg MCHC 33.6 32.0 - 36.0 g/dL RDW 12.6 11.3 - 14.5 % RDW-SD 39.4 37.0 - 54.0 fl MPV 9.8 6.0 - 12.0 fL Platelets 328 150 - 450 10*3/mm3 Neutrophil % 53.9 41.0 - 71.0 % Lymphocyte % 31.6 24.0 - 44.0 % Monocyte % 12.2 (H) 0.0 - 12.0 % Eosinophil % 1.6 0.0 - 3.0 % Basophil % 0.7 0.0 - 1.0 % Immature Grans % 0.3 0.0 - 0.6 % Neutrophils, Absolute 3.27 1.50 - 8.30 10*3/mm3 Lymphocytes, Absolute 1.92 0.60 - 4.80 10*3/mm3 Monocytes, Absolute 0.74 0.00 - 1.00 10*3/mm3 Eosinophils, Absolute 0.10 0.00 - 0.30 10*3/mm3 Basophils, Absolute 0.04 0.00 - 0.20 10*3/mm3 Immature Grans, Absolute 0.02 0.00 - 0.03 10*3/mm3 POC Troponin, Rapid Collection Time: 06/17/18 11:22 AM Result Value Ref Range Troponin I 0.00 0.00 - 0.07 ng/mL Urinalysis With Microscopic If Indicated (No Culture) - Urine, Clean Catch Collection Time: 06/17/18 11:41 AM Result Value Ref Range Color, UA Yellow Yellow, Straw Appearance, UA Clear Clear pH, UA 8.5 (H) 5.0 - 8.0 Specific [place], UA 1.015 1.005 - 1.030 Glucose, UA Negative Negative Ketones, UA Negative Negative Bilirubin, UA Negative Negative Blood, UA Negative Negative Protein, UA Negative Negative Leuk Esterase, UA Negative Negative Nitrite, UA Negative Negative Urobilinogen, UA 0.2 E.U./dL 0.2 - 1.0 E.U./dL POC Troponin, Rapid Collection Time: 06/17/18 1:21 PM Result Value Ref Range Troponin I 0.00 0.00 - 0.07 ng/mL Note: In addition to lab results from this visit, the labs listed above may include labs taken at another facility or during a different encounter within the last 24 hours. Please correlate lab timeswith ED admission and discharge times for further clarification of the services performed during this visit. MRI Brain Without Contrast Final Result Chronic findings. No evidence of acute infarction. E: 06/17/2018 This report was finalized on 06/17/2018 3:10 PM by Alvaro Newton. XR Chest 1 View Final Result No acute cardiopulmonary abnormality. E: 06/17/2018 This report was finalized on 06/17/2018 12:21 PM by Alvaro Newton. Vitals: 06/17/18 1300 06/17/18 1303 06/17/18 1340 06/17/18 1429 BP: 157/78 147/74 136/85 BP Location: Patient Position: Pulse: 53 58 65 Resp: 16 Temp: 97.8 ??F (36.6 ??C) TempSrc: SpO2: 98% 97% 96% Weight: Height: Medications sodium chloride 0.9 % infusion (0 mL/hr Intravenous Stopped 06/17/18 1429) meclizine (ANTIVERT) tablet 25 mg (25 mg Oral Given 06/17/18 1157) dexamethasone (DECADRON) injection 8 mg (8 mg Intravenous Given 06/17/18 1158) ECG/EMG Results (last 24 hours) No results found for the last 24 hours. MDM Number of Diagnoses or Management Options Dizziness: Diagnosis management comments: I reviewed all available studies at the bedside with the patient and her family. They are reassuring. Her MRI of the brain thankfully shows no evidence of stroke or tumor. On recheck after steroids and Dramamine she's feeling improved. Her other labs are also reassuring she has no evidence of recurrence of her taktsubo. Discussed the differential with the patient and her think she has vertigo. Discussed limitsof activity and hopefully she'll improve in a few days with conservative treatment I'll have her follow-up with ENT and her primary care doctor if she has ongoing issues. Return to the ER if worse. All are agreeable with the plan Amount and/or Complexity of Data Reviewed Clinical lab tests: reviewed Tests in the radiology section of CPT??: reviewed Tests in the medicine section of CPT??: reviewed Decide to obtain previous medical records or to obtain history from someone other than the patient:yes Final diagnoses: Dizziness Documentation assistance provided by dorita Leavitt. Information recorded by the scribasad was done at my direction and has been verified and validated by me. Cipriano Leavitt 06/17/18 1102 Cipriano Leavitt 06/17/18 1357 Jeferson Canas MD 06/17/18 3579 documented in this encounter Plan of Treatment Upcoming Encounters Date Type Department Care Team (Late st Contact Info) Description 12/22/2024 9:50 AM EST Office Visit [facility] [address] [facility] [address] [place] [address] Go Zazueta MD [address] [facility] [address] [place] [address] 01/15/2025 9:45 AM EDT Office Visit [facility] [address] [place] [phone] Joy Skinner, BO [address] [place] [address] documented as of this encounter Procedures Procedure Name Priority Date/Time Associated Diagnosis Comments ECG 12-LEAD STAT 06/17/2018 1:24 PM EDT POCT TROPONIN I, RAPID STAT 8 1:21 PM EDT MRI BRAIN WO CONTRAST STAT 06/17/2018 12:39 PM EDT URINALYSIS W/ MICROSCOPIC IF INDICATED (NO CULTURE) STAT 06/17/2018 11:41 AM EDT POCT TROPONIN I, RAPID STAT 8 11:22 AM EDT XR CHEST 1 VW STAT 06/17/2018 11:13 AM EDT CBC WITH AUTO DIFFERENTIAL STAT 06/17/2018 11:11 AM EDT CBC AND DIFFERENTIAL STAT 06/17/2018 11:11 AM EDT B-TYPE NATRIURETIC PEPTIDE STAT 06/17/2018 11:11 AM EDT COMPREHENSIVE METABOLIC PANEL STAT 06/17/2018 11:11 AM EDT ECG 12-LEAD STAT 06/17/2018 10:43 AM EDT documented in this encounter Results * ECG 12 Lead (06/17/2018 1:24 PM EDT) 06/17/2018 1:24 PM EDT 06/17/2018 9:33 PM EDT Narrative BH ECG - 06/17/2018 9:33 PM EDT Test Reason : 2nd set 1310 Blood Pressure : / mmHG Vent. Rate : 059 BPM ? Atrial Rate : 059 BPM ?? P-R Int : 152 ms ?QRS Dur : 082 ms ?QT Int : 448 ms ? P-R-T Axes : 034 068 053 degrees ?? QTc Int : 443 ms Sinus bradycardia Cannot rule out Anterior infarct , age undetermined Abnormal ECG When compared with ECG of 17-JUN-2018 10:43, premature atrial complexes are no longer present Criteria for Inferior infarct are no longer present T wave inversion no longer evident in Inferior leads Confirmed by HYACINTH ??JEFERSON MARCOS ([id number]) on 06/17/2018 9:33:45 PM Referred By: ??ed ? Confirmed By:JEFERSON CANAS ?? Procedure Note Jeferson Canas MD - 06/17/2018 Test Reason : 2nd set 1310 Blood Pressure : / mmHG Vent. Rate : 059 BPM Atrial Rate : 059 BPM P-R Int : 152 ms QRS Dur : 082 ms QT Int : 448 ms P-R-T Axes : 034 068 053 degrees QTc Int : 443 ms Sinus bradycardia Cannot rule out Anterior infarct , age undetermined Abnormal ECG When compared with ECG of 17-JUN-2018 10:43, premature atrial complexes are no longer present Criteria for Inferior infarct are no longer present T wave inversion no longer evident in Inferior leads Confirmed by JEFERSON CANAS MD ([id number]) on 06/17/2018 9:33:45 PM Referred By: caprice marcos Confirmed By:JEFERSON CANAS MD us Jeferson Canas MD ECG ORDERABLES Final Result BH ECG * POC Troponin, Rapid (06/17/2018 1:21 PM EDT) Troponin I 0.00 0.00 - 0.07 ng/mL 06/17/2018 1:35 PM EDT [facility] Comment:Serial Number: [id number]: [id number] Blood 06/17/2018 1:21 PM EDT 06/17/2018 1:35 PM EDT us Jeferson Canas MD POINT OF CARE TEST ORDERABLES Final Result [facility]
[address] [place] [address], * MRI Brain Without Contrast (06/17/2018 12:39 PM EDT) Anatomical Region Laterality Modality Head, Neck N/A Magnetic Resonan ce 06/17/2018 1:32 PM EDT Impressions 06/17/2018 3:10 PM EDT Chronic findings. No evidence of acute infarction. D: ??06/17/2018 E: ??06/17/2018 This report was finalized on 06/17/2018 3:10 PM by Alvaro Newton. Narrative 06/17/2018 3:10 PM EDT EXAMINATION: MRI BRAIN WO CONTRAST- 06/17/2018 INDICATION: Neuro deficit(s), subacute TECHNIQUE: ??Multiplanar multisequence MRI of the brain was performed without ? contrast. COMPARISONS: ??None. FINDINGS: ?? Brain volume is within normal limits. ??Ventricles are normal in size and configuration. ??There is no significant abnormal signal on diffusion weighted images. Scattered nonspecific white matter T2 prolongation is seen supratentorially. There is no mass effect and the basal cisterns are patent. [place] flow voids are maintained. ??No significant abnormal sinonasal or temporal bone fluid is identified. Procedure Note Alvaro Newton MD - 06/17/2018 EXAMINATION: MRI BRAIN WO CONTRAST- 06/17/2018 INDICATION: Neuro deficit(s), subacute TECHNIQUE: Multiplanar multisequence MRI of the brain was performed without contrast. COMPARISONS: None. FINDINGS: Brain volume is within normal limits. Ventricles are normal in size and configuration. There is no significant abnormal signal on diffusion weighted images. Scattered nonspecific white matter T2 prolongation is seen supratentorially. There is no mass effect and the basal cisterns are patent. [place] flow voids are maintained. No significant abnormal sinonasal or temporal bone fluid is identified. IMPRESSION: Chronic findings. No evidence of acute infarction. E: 06/17/2018 This report was finalized on 06/17/2018 3:10 PM by Alvaro Newton. Jeferson Canas MD IMG MRI ORDERABLES Final Resu lt * (ABNORMAL) Urinalysis With Microscopic If Indicated (No Culture) - Urine, Clean Catch (06/17/2018 11:41 AM EDT) Color, UA Yellow Yellow, Straw 06/17/2018 11:56 AM [facility] Appearance, UA Clear Clear 06/17/2018 11:56 AM EDT [facility] pH, UA 8.5(H) 5.0 - 8.0 06/17/2018 11:[facility] Specific [place], UA 1.015 1.005 - 1.030 06/17/2018 11:56 AM EDT [facility] Glucose, UA Negative Negative 06/17/2018 11:56 AM EDT [facility] Ketones, UA Negative Negative 06/17/2018 11:56 [facility] Bilirubin, UA Negative Negative 06/17/2018 11:56 [facility] Blood, UA Negative Negative 06/17/2018 11:56 [facility] Protein, UA Negative Negative 06/17/2018 11:56 AM EDT [facility] Leuk Esterase, UA Negative Negative 06/17/2018 11:56 AM EDT [facility] Nitrite, UA Negative Negative 06/17/2018 11:56 AM [facility] Urobilinogen, UA 0.2 E.U./dL 0.2 - 1.0 E.U./dL 06/17/2018 11:56 AM [facility] Urine Urine specimen collection, clean catch / Unknown Collection / Unknown 06/17/2018 11:41 AM EDT 06/17/2018 11:51 AM EDT [facility] - 06/17/2018 11:56 AM EDT Urine microscopic not indicated. us Jeferson Canas MD URINE ORDERABLES Final Result Performing Organization Address City/[facility]/ZIP Co de Phone Number [facility]
[address] [place] [address], * POC Troponin, Rapid (06/17/2018 11:22 AM EDT) Troponin I 0.00 0.00 - 0.07 ng/mL 06/17/2018 11:39 AM EDT [facility] Comment:Serial Number: [id number]: [id number] Blood 06/17/2018 11:2 2 AM EDT 06/17/2018 11:39 AM EDT us Jeferson Canas MD POINT OF CARE TEST ORDERABLES Final Result Performing Organization Address [facility] Co de Phone Number [facility]
[address] [place] [address], * XR Chest 1 View (06/17/2018 11:13 AM EDT) Anatomical Region Laterality Modality Body N/A Radiographic Bonine ging 06/17/2018 12:0 1 PM EDT Impressions 06/17/2018 12:21 PM EDT No acute cardiopulmonary abnormality. D: ??06/17/2018 E: ??06/17/2018 This report was finalized on 06/17/2018 12:21 PM by Alvaro Newton. Narrative 06/17/2018 12:21 PM EDT EXAMINATION: XR CHEST 1 VW- 06/17/2018 INDICATION: weakness TECHNIQUE: ??Single view frontal chest. COMPARISONS: 02/07/2018 FINDINGS: ??Lungs are without focal abnormality. No pleural effusion or pneumothorax. Cardiomediastinal silhouette is within normal limits. Procedure Note Alvaro Newton MD - 06/17/2018 EXAMINATION: XR CHEST 1 VW- 06/17/2018 INDICATION: weakness TECHNIQUE: Single view frontal chest. COMPARISONS: 02/07/2018 FINDINGS: Lungs are without focal abnormality. No pleural effusion or pneumothorax. Cardiomediastinal silhouette is within normal limits. IMPRESSION: No acute cardiopulmonary abnormality. E: 06/17/2018 This report was finalized on 06/17/2018 12:21 PM by Alvaro Newton. Jeferson Canas MD IMG DIAGNOSTIC IMAGING ORDERA BLES Final Result * (ABNORMAL) CBC Auto Differential (06/17/2018 11:11 AM EDT) [facility] WBC 6.07 3.50 - 10.80 10*3/mm3 06/17/2018 11:22 AM EDT [facility] RBC 4.67 3.89 - 5.14 10*6/mm3 06/17/2018 11:22 AM EDT [facility] Hemoglobin 13.5 11.5 - 15.5 g/dL 06/17/2018 11:22 AM EDT [facility] Hematocrit 40.2 34.5 - 44.0 % 06/17/2018 11:22 AM EDT [facility] MCV 86.1 80.0 - 99.0 fL 06/17/2018 11:22 AM EDT [facility] MCH 28.9 27.0 - 31.0 pg 06/17/2018 11:22 AM EDT [facility] MCHC 33.6 32.0 - 36.0 g/dL 06/17/2018 11:22 AM EDT [facility] RDW 12.6 11.3 - 14.5 % 06/17/2018 11:22 AM EDT [facility] RDW-SD 39.4 37.0 - 54.0 fl 06/17/2018 11:22 AM EDT [facility] MPV 9.8 6.0 - 12.0 fL 06/17/2018 11:22 AM EDT [facility] Platelets 328 150 - 450 10*3/mm3 06/17/2018 11:22 AM EDT [facility] Neutrophil % 53.9 41.0 - 71.0 % 06/17/2018 11:22 AM EDT [facility] Lymphocyte % 31.6 24.0 - 44.0 % 06/17/2018 11:22 AM EDT [facility] Monocyte % 12.2(H) 0.0 - 12.0 % 06/17/2018 11:22 AM EDT [facility] Eosinophil % 1.6 0.0 - 3.0 % 06/17/2018 11:22 AM EDT [facility] Basophil % 0.7 0.0 - 1.0 % 06/17/2018 11:22 AM EDT [facility] Immature Grans % 0.3 0.0 - 0.6 % 06/17/2018 11:22 AM EDT [facility] Neutrophils, Absolute 3.27 1.50 - 8.30 10*3/mm3 06/17/2018 11:22 AM EDT [facility] Lymphocytes, Absolute 1.92 0.60 - 4.80 10*3/mm3 06/17/2018 11:22 AM EDT [facility] Monocytes, Absolute 0.74 0.00 - 1.00 10*3/mm3 06/17/2018 11:22 AM EDT [facility] Eosinophils, Absolute 0.10 0.00 - 0.30 10*3/mm3 06/17/2018 11:22 AM EDT [facility] Basophils, Absolute 0.04 0.00 - 0.20 10*3/mm3 06/17/2018 11:22 AM EDT [facility] Immature Grans, Absolute 0.02 0.00 - 0.03 10*3/mm3 06/17/2018 11:22 AM EDT [facility] Blood Venipuncture / Unknown 06/17/2018 11:11 AM EDT 06/17/2018 11:19 AM EDT us Jeferson Canas MD LAB BLOOD ORDERABLES Final Re sult [facility]
[address] [place] [address], * BNP (06/17/2018 11:11 AM EDT) BNP 13.0 0.0 - 100.0 pg/mL 06/17/2018 11:48 AM EDT [facility] Comment:Results may be false ly decreased if patient taking Biotin. Blood Venipuncture / Unknown 06/17/2018 11:11 AM EDT 06/17/2018 11:19 AM EDT Jeferson Canas MD LAB BLOOD ORDERABLES Final Re sult [facility]
[address] [place] [address], * (ABNORMAL) Comprehensive Metabolic Panel (06/17/2018 11:11 AM EDT) Glucose 111(H) 70 - 100 mg/dL 06/17/2018 11:39 AM EDT [facility] BUN 12 9 - 23 mg/dL 06/17/2018 11:39 AM EDT [facility] Creatinine 0.77 0.60 - 1.30 mg/dL 06/17/2018 11:39 AM EDT [facility] Sodium 138 132 - 146 mmol/L 06/17/2018 11:39 AM EDT [facility] Potassium 4.4 3.5 - 5.5 mmol/L 06/17/2018 11:39 AM EDT [facility] Chloride 103 99 - 109 mmol/L 06/17/2018 11:39 AM EDT [facility] CO2 29.0 20.0 - 31.0 mmol/L 06/17/2018 11:39 AM EDT [facility] Calcium 10.2 8.7 - 10.4 mg/dL 06/17/2018 11:39 AM EDT [facility] Total Protein 7.3 5.7 - 8.2 g/dL 06/17/2018 11:39 AM EDT [facility] Albumin 4.57 3.20 - 4.80 g/dL 06/17/2018 11:39 AM [facility] ALT (SGPT) 22 7 - 40 U/L 06/17/2018 11:39 AM T [facility] AST (SGOT) 18 0 - 33 U/L 06/17/2018 11:39 AM [facility] Alkaline Phosphatase 88 25 - 100 U/L 06/17/2018 11:39 AM [facility] Total Bilirubin 0.6 0.3 - 1.2 mg/dL 06/17/2018 11:39 AM [facility] eGFR Non Amer 74 >60 mL/min/1.7 3 06/17/2018 11:39 AM [facility] Globulin 2.7 gm/dL 06/17/2018 11:39 AM [facility] A/G Ratio 1.7 1.5 - 2.5 g/dL 06/17/2018 11:39 AM [facility] BUN/Creatinine Ratio 15.6 7.0 - 25.0 06/17/2018 11:39 AM [facility] Anion Gap 6.0 3.0 - 11.0 mmol/L 06/17/2018 11:39 AM [facility] Blood Venipuncture / Unknown 06/17/2018 11:11 AM EDT 06/17/2018 11:19 AM T [facility] - 06/17/2018 11:39 AM EDT National [employer] Guidelines Stage ? Description ?GFR 1 ? Normal or High ? 90+ 2 ? Mild decrease ?60-89 3 ? Moderate decrease ??30-59 4 ? Severe decrease ?15-29 5 ? Kidney failure ? <15 us Jeferson Canas MD LAB BLOOD ORDERABLES Final Re sult [facility]
[address] [id number], * ECG 12 Lead (06/17/2018 10:43 AM EDT) 06/17/2018 10:4 3 AM EDT 06/17/2018 1:18 PM EDT Narrative [facility] ECG - 06/17/2018 1:18 PM EDT Test Reason : chest pressure Blood Pressure : / mmHG Vent. Rate : 060 BPM ? Atrial Rate : 060 BPM ?? P-R Int : 162 ms ?QRS Dur : 086 ms ?QT Int : 436 ms ? P-R-T Axes : -07 000 019 degrees ?? QTc Int : 436 ms Sinus rhythm with premature atrial complexes Inferior infarct , age undetermined Abnormal ECG When compared with ECG of 07-FEB-2018 11:23, premature atrial complexes are now present Minimal criteria for Anterior infarct are no longer present Confirmed by HYACINTH ??JEFERSON MARCOS ([id number]) on 06/17/2018 1:18:05 PM Referred By: ??ERMD ? Confirmed By:JEFERSON CANAS ??MD Procedure Note Jeferson Canas MD - 06/17/2018 Test Reason : chest pressure Blood Pressure : / mmHG Vent. Rate : 060 BPM Atrial Rate : 060 BPM P-R Int : 162 ms QRS Dur : 086 ms QT Int : 436 ms P-R-T Axes : -07 000 019 degrees QTc Int : 436 ms Sinus rhythm with premature atrial complexes Inferior infarct , age undetermined Abnormal ECG When compared with ECG of 07-FEB-2018 11:23, premature atrial complexes are now present Minimal criteria for Anterior infarct are no longer present Confirmed by JEFERSON CANAS MD ([id number]) on 06/17/2018 1:18:05 PM Referred By: BRIANNA Confirmed By:JEFERSON CANAS MD Jeferson Canas MD ECG ORDERABLES Final Result [facility] ECG documented in this encounter Visit Diagnoses Diagnosis Dizziness- Primary Dizziness and giddiness documented in this encounter Administered Medications Inactive Administered Medications - up to 3 most recent administrations Medication Order MAR Action Action Date Dose Rate Site dexamethasone (DECADRON) injection 8 mg 8 mg, Intravenous, Once, On Wed06/17/18 at 1102, For 1 dose, For IV administration. May be pushed over a minimum of 1 minute. Given 06/17/2018 11:58 AM EDT 8 mg meclizine (ANTIVERT) tablet 25 mg 25 mg, Oral, Once, On Wed06/17/18 at 1102, For 1 dose Given 06/17/2018 11:57 AM EDT 25 mg sodium chloride 0.9 % infusion 125 mL/hr, Intravenous, Continuous, Starting on Wed06/17/18 at 1102 Currently Infusing 06/17/2018 2:00 PM EDT 125 mL/hr 125 mL/hr New Bag 06/17/2018 11:59 AM EDT 125 mL/hr 125 mL/hr documented in this encounter Active and Recently Administered Medications Times are shown in EDT. Scheduled Medication Order 06/15/2018 06/16/2018 06/17/2018 dexamethasone (DECADRON) injection 8 mg (COMPLETED) 8 mg, Intravenous, Once, On Wed06/17/18 at 1102, For 1 dose, For IV administration. May be pushed over a minimum of 1 minute. 1158 (Given - Provid er: Sheryl Hopkins RN) meclizine (ANTIVERT) tablet 25 mg (COMPLETED) 25 mg, Oral, Once, On Wed06/17/18 at 1102, For 1 dose 1157 (Given - Provid er: Sheryl Hopkins RN) Continuous Medication Order 06/15/2018 06/16/2018 06/17/2018 sodium chloride 0.9 % infusion 125 mL/hr, Intravenous, Continuous, Starting on Wed06/17/18 at 1102 1159 (New Bag - Prov ider: Sheryl Hopkins RN)1400 (Currently Infusing - Provider: Sheryl Hopkins RN)1429 (Stopped - Provider: Rhonda Lucero RN) documented in this encounter Care Teams Manager Sustainability Relationship Specialty Start Date End Date Davis Foote MD [address] [place], [facility]61 PCP - General 09/18/15 07/21/22 documented as of this encounter
--- OUTSIDE RECORDS SUMMARY | 2024-10-02 13:11 | XMS_ITS | Encounter Summary ---
[facility] Address [address] [place] [address] Care Team Providers Care Supply Chain Procurement Manager Name Role Phone Davis Foote MD Primary Care Provider [phone] Encounter Details Date Type Department Care Team (Latest Contact Info) Description 10/16/2020 1:30 PM EST Clinical Support [facility] [address] [facility] [address] [place] [address] Atrial tachycardia (Primary Dx) Social History Tobacco Use Types [...] as of this encounter Progress Notes * Fred Dominguez MA - 10/16/2020 1:30 PM EST ECG VISIT ONLY documented in this encounter Plan of Treatment Upcoming Encounters Date Type Department Care Team (Late st Contact Info) Description 12/22/2024 9:50 AM EST Office Visit [facility] [address] [facility] [address] [place] [address] Go Zazueta MD [address] [facility] [address] [place] [address] 01/15/2025 9:45 AM EDT Office Visit [facility] [address] [place] [phone] Joy Skinner APRN [address] [place], [place] [id number] Scheduled Orders Name Type Priority Associated Diagnoses Orde r Schedule ECG 12 Lead ECG Routine Atrial tachycardia Ordered: 10/16/2020 documented as of this encounter Procedures Procedure Name Priority Date/Time Associated Diagnosis Comments SCANNED EKG 10/16/2020 documented in this encounter Results * SCANNED EKG (10/16/2020) Abebe Diego MD ECG ORDERABLES Final Result documented in this encounter Visit Diagnoses Diagnosis Atrial tachycardia- Primary Other specified cardiac dysrhythmias documented in this encounter Care Teams Supply Chain Procurement Manager Relationship Specialty Start Date End Date Davis Foote MD [address] [place] [address] [place] [address] PCP - General 09/18/15 07/21/22 documented as of this encounter
--- OUTSIDE RECORDS SUMMARY | 2024-10-02 13:11 | XMS_ITS | Encounter Summary ---
[facility] Address [address] [place] [id number] Care Team Providers Care Estimating Engineer Name Role Phone Davis Foote MD Primary Care Provider [phone] Encounter Details Date Type Department Care Team (Late Contact Info) Description 11/11/2020 Telephone [facility] [address] [place] [address] Abebe Diego MD [address] [facility] [address] [place] [address] Social History Tobacco Use Types Packs/Day Years [...] Telephone Encounter - Grisel Irwin RN - 11/11/2020 12:08 PM EST Left VM advising of holter monitor results. documented in this encounter Plan of Treatment Upcoming Encounters Date Type Department Care Team (Late Contact Info) Description 12/22/2024 9:50 AM EST Office Visit [facility] [address] [facility] [address] [place] [address] Go Zazueta MD [address] [facility] 101 [place], [place] [id number] 01/15/2025 9:45 AM EDT Office Visit [facility] [address] [facility] [address] [place] [address] Joy Skinner APRN [address] [facility] [address] [place], [place] [id number] documented as of this encounter Visit Diagnoses Not on filedocumented in this encounter Care Teams Estimating Engineer Relationship Specialty Start Date End Date Davis Foote MD [address] [place] [address] [place] [address] PCP - General 09/18/15 07/21/22 documented as of this encounter
--- OUTSIDE RECORDS SUMMARY | 2024-10-02 13:12 | XMS_ITS | Encounter Summary ---
Author Organization [facility] Address [address] [place] [address] Care Team Providers Care Animation Director Name Role Phone Davis Foote MD Primary Care Provider [phone] Encounter Details Date Type Department Care Team (Late st Contact Info) Description 03/01/2017 Documentation [facility] [address] [facility] [address] [place] [address] Kushal Silverman, BO [address] [facility] [address] [place] [address] Social History Tobacco Use Types [...] as of this encounter Progress Notes * Kushal Silverman APRN - 03/01/2017 1:52 PM EDT Received and reviewed labs completed on 02/26/17: Glucose 118, BUN 13, creatinine 0.7, estimated GFR 88, sodium 138, potassium 4.4, chloride 101, current is a 25, calcium 9.7, ALT 21, AST 19 Cholesterol 147, triglycerides 86, HDL 47, LDL 82, Magnesium 1.7 BNP 28.8 Vitamin D 57.7 documented in this encounter Plan of Treatment Upcoming Encounters Date Type Department Care Team (Late st Contact Info) Description 12/22/2024 9:50 AM EST Office Visit [facility] [address] [facility] 310 [place] [address] Go Zazueta MD [address] [facility] 101 [place], [place] [id number] 01/15/2025 9:45 AM EDT Office Visit [facility] [address] [facility] 400 [place] [address] Joy Skinner APRN [address] [facility] E [facility] 400 [place] [phone] documented as of this encounter Visit Diagnoses Not on filedocumented in this encounter Care Teams Animation Director Relationship Specialty Start Date End Date Davis Foote MD [address] [place] [address] PCP - General 09/18/15 07/21/22 documented as of this encounter
--- OUTSIDE RECORDS SUMMARY | 2024-10-02 13:12 | XMS_ITS | Encounter Summary ---
Author Organization [facility] Address [address] [place] [id number] Care Team Providers Care Street Car Inspector Name Role Phone Davis Foote MD Primary Care Provider [phone] Reason for Visit * Reason Comments Follow-up cardiomyopathy. c/o myopathies, Chest discomfort, bruising. Encounter Details Date Type Department Care Team (Late st Contact Info) Description 02/08/2017 9:30 AM EDT Office Visit [facility] [address] [phone] Kushal Silverman APRN [address] [place] [id number] Takotsubo cardiomyopathy (Primary Dx); Coronary artery disease involving egegik coronary artery of egegik heart without angina pectoris; Essential hypertension; Myalgia; Other fatigue; Vitamin D deficiency ; DONNA (obstructive sleep apnea) Social History Tobacco Use Types Packs/Day Years [...] Sign Reading Time Taken Comments Blood Pressure 122/78 02/08/2017 11:24 AM EDT Pulse 67 02/08/2017 10:18 AM EDT Temperature 36.6 ??C (97.8 ??F) 02/08/2017 1 0:11 AM EDT Respiratory Rate 16 02/08/2017 10:1 1 AM EDT Oxygen Saturation 97% 02/08/2017 10: 11 AM EDT Inhaled Oxygen Concentration - - Weight 79.3 kg (174 lb 12.8 oz) 017 10:11 AM EDT Height 167.6 cm (5' 6 ) 02/08/2017 10:1 1 AM EDT Body Mass Index 28.21 02/08/2017 10:11 AM EDT documented in this encounter Progress Notes * Kushal Silverman, BO - 02/08/2017 9:30 AM EDT [facility] Encounter Date:02/08/[address] [facility] [place] [address] Davis Foote MD Rachael Fleming is a 71 y.o. female. Subjective: Chief Complaint: Follow-up (cardiomyopathy. c/o myopathies, Chest discomfort, bruising.) HPI F/u for cardiomyopathy, HTN Patient was admitted to [facility] 10/26/2016 and discharged 10/28/2016 with Takosubocardiomyopathy, elevated troponin. Patient has a history of cardiomyopathy in 1996 with recovery, then recurrence 2007, EF 20% at that time. Left heart catheterization was completed during hospital stay showing near normal coronary arteries, EF 20%. Pt on statin, plavix (small vessels disease), ASA. Echocardiogram completed prior to discharge showing improvement of EF to 40%, mild MR, mild TR. Repeat echo 12/21/16: EF 55%. Patient on carvedilol, 3.125 mg twice a day. Could not tolerate up titration 6.25 mg twice a day due to fatigue, hypotension with systolic blood pressures in the 80s. Patient on losartan HCTZ. Home blood pressures 110-120s/70s. Heart rates 60s to 70s. Patient complains of intermittent chest discomfort, shortness duration, infrequent, associated withexertion, improves rapidly with rest. She has noted gradual improvement of physical exertion. States at times she'll be able to participate in cardiac rehabilitation without any any trouble, and thenat times she'll feel tired, shortness of breath, mild chest discomfort. She has not taken nitroglycerin. Improves rapidly with rest. Denies edema. Reports occasional wheezing with a history of asthmabut has not used her albuterol. Reports occasional palpitation, seconds in duration, infrequent, noted at rest. Has a history of sleep apnea but has been intolerant to CPAP in the past. Is not awakened by palpitations, does not awaken gasping. Denies a.m. headaches or daytime somnolence. Denies orthopnea, PND, dizziness, abdominal fullness, early satiety, weight gain. Complains of intermittent fatigue and intermittent muscle aches at night. Attributes to being on a statin. Describes muscle acheand this time as mild and tolerable. Also reports slight worsening of bruising. Denies hematuria, dysuria, melanoma. ?? Patient Active Problem List Diagnosis ??? Muscle cramping [R25.2] ??? Coronary artery disease [I25.10] Overview Note: a. August 1997, cardiac catheterization with normal coronary arteries. Normal EF. b. Cardiac catheterization, June 2008, with no significant coronary artery disease. Ejection fraction at that time 20%. c. January 2009, echocardiogram with ejection fraction of 55 +/- 5%. ??? Palpitations [R00.2] Overview Note: Recurrent-tachyarrhythmias d. Normal Holter, October 2011. e. Event recorder shows atrial tachycardia at 145 beats per minute, which is symptomatic. ??? PUD (peptic ulcer disease) [K27.9] ??? Irritable bowel syndrome [K58.9] ??? Takotsubo cardiomyopathy [I51.81] Overview Note: f. Initial diagnosis, 1996, with subsequent recovery. g. Recurrence with diagnosis of Takotsubo syndrome, 2007, at the [facility]. ??? Unstable angina [I20.0] ??? Non-STEMI (non-ST elevated myocardial infarction) [I21.4] ??? DONNA (obstructive sleep apnea) [G47.33] ??? Hypertension, however hypotensive since admit with NSTEMI [I10] Past Surgical History: Procedure Laterality Date ??? BREAST LUMPECTOMY Right 20 years ago- extracted and benign ??? CARDIAC CATHETERIZATION 2002 no stents. ??? CARDIAC CATHETERIZATION N/A 10/26/2016 Procedure: Left Heart Cath; Surgeon: Lisa Hensley MD; Location: [facility] CATH [facility]ASIVE LOCATION; Service: ??? CATARACT EXTRACTION, BILATERAL ??? HYSTERECTOMY Allergies Allergen Reactions ??? Penicillins Hives ??? Phenergan [Promethazine Hcl] Hives ??? Statins Myalgia ??? Sudafed [Pseudoephedrine Hcl] Rash ??? Sulfa Antibiotics Rash Current Outpatient Prescriptions: ??? ALPRAZolam (XANAX) 0.25 MG tablet, Take 0.25 mg by mouth At Night As Needed for anxiety., Disp:, Rfl: ??? aspirin 81 MG EC tablet, Take 81 mg by mouth Daily., Disp: , Rfl: ??? carvedilol (COREG) 3.125 MG tablet, Take 3.125 mg by mouth 2 (Two) Times a Day., Disp: , Rfl: 0 ??? clopidogrel (PLAVIX) 75 MG tablet, Take 1 tablet by mouth Daily., Disp: 30 tablet, Rfl: 3 ??? losartan-hydrochlorothiazide (HYZAAR) 50-12.5 MG per tablet, Take 1 tablet by mouth Daily., Disp: 30 tablet, Rfl: 3 ??? nitroglycerin (NITROSTAT) 0.4 MG SL tablet, Place 0.4 mg under the tongue Every 5 (Five) Minutes As Needed for chest pain. Take no more than 3 doses in 15 minutes., Disp: , Rfl: ??? omeprazole (priLOSEC) 40 MG capsule, Take 40 mg by mouth Daily., Disp: , Rfl: ??? pravastatin (PRAVACHOL) 80 MG tablet, Take 1 tablet by mouth Every Night., Disp: 30 tablet, Rfl: 3 ??? zolpidem (AMBIEN) 10 MG tablet, Take 5 mg by mouth At Night As Needed for sleep., Disp: , Rfl: Current Facility-Administered Medications: ??? albuterol (PROVENTIL HFA;VENTOLIN HFA) inhaler 2 puff, 2 puff, Inhalation, Q4H PRN, Kushal Silverman APRN The following portions of the patient's history were reviewed and updated as appropriate: allergies, current medications, past family history, past medical history, past social history, past surgicalhistory and problem list. Review of Systems Constitution: Positive for malaise/fatigue. Negative for chills, decreased appetite, diaphoresis, fever, weakness, night sweats, weight gain and weight loss. HENT: Positive for headaches. Negative for congestion and nosebleeds. Eyes: Negative. Negative for blurred vision, visual disturbance and visual halos. Cardiovascular: Positive for chest pain, dyspnea on exertion, irregular heartbeat and palpitations.Negative for claudication, cyanosis, leg swelling, near-syncope, orthopnea, paroxysmal nocturnal dyspnea and syncope. Respiratory: Positive for snoring. Negative for cough, hemoptysis, shortness of breath, sleep disturbances due to breathing, sputum production and wheezing. Endocrine: Negative. Negative for cold intolerance, heat intolerance, polydipsia, polyphagia and polyuria. Hematologic/Lymphatic: Bruises/bleeds easily. Skin: Negative. Negative for dry skin, itching and rash. Musculoskeletal: Positive for muscle cramps. Negative for falls, joint pain, joint swelling, muscleweakness and myalgias. Gastrointestinal: Positive for constipation, diarrhea and heartburn. Negative for bloating, abdominal pain, dysphagia, melena, nausea and vomiting. Genitourinary: Negative. Negative for bladder incontinence, dysuria, flank pain, hematuria and nocturia. Neurological: Negative for difficulty with concentration, excessive daytime sleepiness, dizziness and loss of balance. Psychiatric/Behavioral: Negative for altered mental status and depression. The patient does not have insomnia and is not nervous/anxious. Allergic/Immunologic: Positive for environmental allergies. Objective: Vitals: 02/08/17 1011 02/08/17 1017 02/08/17 1018 02/08/17 1124 BP: 163/85 170/99 122/78 BP Location: Left arm Left arm Patient Position: Sitting Standing Pulse: 62 67 Resp: 16 Temp: 97.8 ??F (36.6 ??C) TempSrc: Temporal Artery SpO2: 97% Weight: 174 lb 12.8 oz (79.3 kg) Height: 66 (167.6 cm) Physical Exam Lab and Diagnostic Review: Assessment and Plan: 1. Takotsubo cardiomyopathy Now normal EF. NYHA II-III fatigue. 2. Coronary artery disease involving egegik coronary artery of egegik heart without angina pectoris Near normal coronaries, but small vessel disease. C/o of occasional Chest discomfort with exertion. Monitor at this time, but may need Imdur Pt to call if s/s worsen Continue cardiac rehab. Discussed exercise modifications to tolerance. Rest when needed. Plavix, asa, ARB, Coreg low dose (could not tolerate due to hypotension) 3. Essential hypertension Elevated initially, but improved 122/78. HOme BP log acceptable. Continue current meds - Basic Metabolic Panel; Future 4. Myalgia On statin - Magnesium; Future - Vitamin D 25 Hydroxy; Future (Vitamin D deficiency, screen for) May consider CO-Q10, discussed option with pt. 5. Other fatigue 6.. DONNA: Hx of intolerant to treatment. Discussed importance of treatment. Pt states she tried cpapwith various masks for several months. Declined repeat study or treatment. Discussed role of H&V center and when to call as a resource. Pt scheduled with PCP and cardiology. *Please note that portions of this note were completed with a voice recognition program. Efforts were made to edit the dictations, but occasionally words are mistranscribed. documented in this encounter Plan of Treatment Upcoming Encounters Date Type Department Care Team (Late st Contact Info) Description 12/22/2024 9:50 AM EST Office Visit [facility]TS MEDICINE [address] [facility] [address] [place] [address] Go Zazueta MD [address] [facility] [address] [place] [address] 01/15/2025 9:45 AM EDT Office Visit [facility] [address] [facility] [address] [place] [address] Joy Skinner APRN [address] [facility] [address] [place] [address] documented as of this encounter Visit Diagnoses Diagnosis Takotsubo cardiomyopathy- Primary Takotsubo syndrome Coronary artery disease involving egegik coronary artery of egegik heart without angina pectoris Essential hypertension Unspecified essential hypertension Myalgia Unspecified myalgia and myositis Other fatigue Vitamin D deficiency DONNA (obstructive sleep apnea) Obstructive sleep apnea (adult) (pediatric) documented in this encounter Care Teams Street Car Inspector Relationship Specialty Start Date End Date Davis Foote MD [address] [place] [address] PCP - General 09/18/15 07/21/22 documented as of this encounter
--- OUTSIDE RECORDS SUMMARY | 2024-10-02 13:12 | XMS_ITS | Encounter Summary ---
[facility] Address [address] [place] [address] Care Team Providers Care Dobby Loom Chain Pegger Name Role Phone Davis Foote MD Primary Care Provider [phone] Reason for Visit * Reason Comments Establish Care for NICM s/p Hospita lization Encounter Details Date Type Department Care Team (Late st Contact Info) Description 11/04/2016 9:00 AM EST Office Visit [facility] [address] [facility] [address] [place] [id number] Kushal Silverman APRN [address] [address] Essential hypertension (Primary Dx); Takotsubo cardiomyopathy; NICM (nonischemic cardiomyopathy); Mild intermittent asthma without complication Social History Tobacco Use Types Packs/Day Years [...] Sign Reading Time Taken Comments Blood Pressure 136/75 11/04/2016 8:58 AM EST Pulse 71 11/04/2016 8:58 AM EST Temperature 36.6 ??C (97.9 ??F) 11/04/2016 8:56 AM ES T Respiratory Rate 20 11/04/2016 8:56 AM EST Oxygen Saturation 99% 11/04/2016 8:56 AM EST Inhaled Oxygen Concentration - - Weight 80.7 kg (178 lb) 11/04/2016 8:56 AM EST Height 167.6 cm (5' 6 ) 11/04/2016 8:56 AM EST Body Mass Index 28.73 11/04/2016 8:56 AM EST documented in this encounter Progress Notes * Kushal Silevrman, BO - 11/04/2016 9:00 AM EST [facility] Encounter Date:11/04/2016 Rachael Fleming [facility] [place] [address] Davis Foote MD Rachael Fleming is a 71 y.o. female. Subjective: Chief Complaint: Establish Care (for [facility] s/p Hospitalization) HPI Patient was admitted to [facility] 10/26/2016 and discharged 10/28/2016 with Tikosyn below cardiomyopathy, elevated troponin. Patient has a history of cardiomyopathy in 1996 with recovery, then recurrence 2007, EF 20% at that time. Left heart catheterization was completed during hospital stay showing near normal coronary arteries, EF 20%. Echocardiogram completed prior to discharge showing improvement of EF to 40%, mild MR, mild TR. Patient was initiated on carvedilol. Losartan HCTZ was discontinued due to hypotension. Patient presents today one week post discharge for evaluation. Complains of mild dyspnea on exertion. Mild swelling of hands and ankles. Cough over the last week worse at night associated with occasional wheezing. Patient has a history of asthma but has not been using her albuterol. Patient is beentaking home blood pressures showing 130s to 140s systolic. Denies chest pain, pressure, palpitations, orthopnea, dizziness, abdominal fullness, early satiety, or weight gain. Patient Active Problem List Diagnosis ??? Takotsubo cardiomyopathy ??? Unstable angina ??? Non-STEMI (non-ST elevated myocardial infarction) ??? DONNA (obstructive sleep apnea) ??? Hypertension, however hypotensive since admit with NSTEMI Past Surgical History Procedure Laterality Date ??? Hysterectomy ??? Breast lumpectomy Right 20 years ago ??? Cardiac catheterization 2002 no stents. ??? Cataract extraction, bilateral ??? Cardiac catheterization N/A 10/26/2016 Procedure: Left Heart Cath; Surgeon: Lisa Hensley MD; Location: [facility]; Service: Allergies Allergen Reactions ??? Penicillins Hives ??? Phenergan [Promethazine Hcl] Hives ??? Sudafed [Pseudoephedrine Hcl] Rash ??? Sulfa Antibiotics Rash Current Outpatient Prescriptions: ??? ALPRAZolam (XANAX) 0.25 MG tablet, Take 0.25 mg by mouth At Night As Needed for anxiety., Disp:, Rfl: ??? aspirin 81 MG EC tablet, Take 81 mg by mouth Daily., Disp: , Rfl: ??? carvedilol (COREG) 3.125 MG tablet, Take 1 tablet by mouth Every 12 (Twelve) Hours., Disp: 60 tablet, Rfl: 0 ??? clopidogrel (PLAVIX) 75 MG tablet, Take 1 tablet by mouth Daily., Disp: 30 tablet, Rfl: 0 ??? nitroglycerin [...] mouth Every Night., Disp: 30 tablet, Rfl: 0 ??? zolpidem (AMBIEN) 10 MG tablet, Take 5 mg by mouth At Night As Needed for sleep., Disp: , Rfl: The following portions of the patient's history were reviewed and updated as appropriate: allergies, current medications, past family history, past medical history, past social history, past surgicalhistory and problem list. Review of Systems Constitution: Positive for weakness and malaise/fatigue. Negative for chills, decreased appetite, diaphoresis, fever, night sweats, weight gain and weight loss. HENT: Positive for headaches. Negative for congestion and nosebleeds. Eyes: Negative for blurred vision, visual disturbance and visual halos. Cardiovascular: Positive for chest pain and dyspnea on exertion. Negative for claudication, cyanosis, irregular heartbeat, leg swelling, near-syncope, orthopnea, palpitations, paroxysmal nocturnal dyspnea and syncope. Respiratory: Positive for cough. Negative for hemoptysis, shortness of breath, sleep disturbances due to breathing, snoring, sputum production and wheezing. Endocrine: Negative for cold intolerance, heat intolerance, polydipsia, polyphagia and polyuria. Hematologic/Lymphatic: Does not bruise/bleed easily. Skin: Negative for dry skin, itching and rash. Musculoskeletal: Negative for falls, joint pain, joint swelling, muscle weakness and myalgias. Gastrointestinal: Positive for diarrhea. Negative for bloating, abdominal pain, constipation, dysphagia, heartburn, melena, nausea and vomiting. Genitourinary: Negative for dysuria, flank pain, hematuria and nocturia. Neurological: Negative for difficulty with concentration, excessive daytime sleepiness, dizziness and loss of balance. Psychiatric/Behavioral: Negative for altered mental status and depression. The patient is nervous/anxious. Allergic/Immunologic: Negative for environmental allergies. Objective: Vitals: 11/04/16 0856 11/04/16 0857 11/04/16 0858 BP: 142/75 130/72 136/75 BP Location: Right arm Left arm Left arm Patient Position: Sitting Sitting Standing Cuff Size: Adult Pulse: 72 71 Resp: 20 Temp: 97.9 ??F (36.6 ??C) TempSrc: Temporal Artery SpO2: 99% Weight: 178 lb (80.7 kg) Height: 66 (167.6 cm) Physical Exam Constitutional: She is oriented to person, place, and time. She appears well- developed and well-nourished. No distress. HENT: Head: Normocephalic and atraumatic. Mouth/Throat: Oropharynx is clear and moist. Eyes: Conjunctivae are normal. Pupils are equal, round, and reactive to light. No scleral icterus. Neck: No hepatojugular reflux and no JVD present. Carotid bruit is not present. No tracheal deviation present. No thyromegaly present. Cardiovascular: Normal rate, regular rhythm, normal heart sounds and intact distal pulses. Exam reveals no friction rub. No murmur heard. Pulmonary/Chest: Effort normal and breath sounds normal. Abdominal: Soft. Bowel sounds are normal. She exhibits no distension. There is no tenderness. Musculoskeletal: She exhibits edema (mild bilateral ankle edema, nonpitting. Mild swelling of bilateral hands.). Lymphadenopathy: She has no cervical adenopathy. Neurological: She is alert and oriented to person, place, and time. Skin: Skin is warm, dry and intact. No rash noted. No cyanosis or erythema. No pallor. Psychiatric: She has a normal mood and affect. Her behavior is normal. Thought content normal. Vitals reviewed. Lab and Diagnostic Review: 10/26/16 Left Heart Cath ?? Takotsubo/stress induced cardiomyopathy with severe left ventricular systolic dysfunction, estimated ejection fraction 20%. ?? Near-normal coronary arteries. Echocardiogram 08/28/2016: EF 41%, stress-induced Tikosyn will cardiomyopathy, mild MR, mild TR 10/27/16 Glucose 70 - 100 mg/dL 106 (H) BUN 9 - 23 mg/dL 10 Creatinine 0.60 - 1.30 mg/dL 0.50 (L) Sodium 132 - 146 mmol/L 135 Potassium 3.5 - 5.5 mmol/L 3.9 Chloride 99 - 109 mmol/L 104 CO2 20.0 - 31.0 mmol/L 27.0 Calcium 8.7 - 10.4 mg/dL 9.1 eGFR Non Amer >60 mL/min/1.73 122 BUN/Creatinine Ratio 7.0 - 25.0 20.0 Anion Gap 3.0 - 11.0 mmol/L 4.0 WBC 3.50 - 10.80 10*3/mm3 8.96 RBC 3.89 - 5.14 10*6/mm3 3.89 Hemoglobin 11.5 - 15.5 g/dL 11.6 Hematocrit 34.5 - 44.0 % 33.7 (L) MCV 80.0 - 99.0 fL 86.6 MCH 27.0 - 31.0 pg 29.8 MCHC 32.0 - 36.0 g/dL 34.4 RDW 11.3 - 14.5 % 12.8 RDW-SD 37.0 - 54.0 fl 40.8 MPV 6.0 - 12.0 fL 9.7 Platelets 150 - 450 10*3/mm3 276 BNP 0.0 - 100.0 pg/mL 61.0 Assessment and Plan: 1. Takotsubo cardiomyopathy, EF 40%, NYHA II-III Restart ARB/HCTZ. Continue current dose BB. Heart failure education discussed: What his heart failure, causes, signs and symptoms, medication management, daily weight monitoring, low-sodium diet of less than 2 g per day, daily exercise, role the heart failure center. HF booklet and Zones given to patient and reviewed. (education time 25 minutes). Pt is scheduled to start cardiac rehab in approx 4 weeks. Encouraged pt to start walking to tolerance. 2. NICM (nonischemic cardiomyopathy) 3. Essential hypertension - losartan-hydrochlorothiazide (HYZAAR) 50-12.5 MG per tablet; Take 1 tablet by mouth Daily. Dispense: 30 tablet; Refill: 3 Keep home BP log. Discuss BP parameters and when to call - Basic Metabolic Panel; 1-2 weeks after starting Hyzaar in [place] 4. Mild intermittent asthma without complication Pt c/o of cough. Use Inhaler. Monitor cough and see if improved with inhaler and adding HCTZ. Pt feels cough is r/t coreg. If continues may need to consider other BB. - albuterol (PROVENTIL HFA;VENTOLIN HFA) inhaler 2 puff; Inhale 2 puffs Every 4 (Four) Hours As Needed for wheezing or shortness of air. F/u with Brandie as scheduled. F[facility]u [facility] 12 weeks and PRN *Please note that portions of this note were completed with a voice recognition program. Efforts were made to edit the dictations, but occasionally words are mistranscribed. documented in this encounter Plan of Treatment Upcoming Encounters Date Type Department Care Team (Late st Contact Info) Description 12/22/2024 9:50 AM EST Office Visit [facility] [address] [place] [address] Go Zazueta MD [address] [facility] [address] [place] [address] 01/15/2025 9:45 AM EDT Office Visit [facility] [facility] [address] [place] [address] Joy Skinner APRN [address] [place] [address] documented as of this encounter Visit Diagnoses Diagnosis Essential hypertension- Primary Unspecified essential hypertension Takotsubo cardiomyopathy Takotsubo syndrome NICM (nonischemic cardiomyopathy) Mild intermittent asthma without complication documented in this encounter Care Teams Dobby Loom Chain Pegger Relationship Specialty Start Date End Date Davis Foote MD [address] [place] [address] [place] [address] PCP - General 09/18/15 07/21/22 documented as of this encounter
--- OUTSIDE RECORDS SUMMARY | 2024-10-02 13:12 | XMS_ITS | Encounter Summary ---
[facility] Address [address] [place] [address] Care Team Providers Care Post Anesthesia Nurse Name Role Phone Davis Foote MD Primary Care Provider [phone] Reason for Visit * Reason Comments Atrial tachycardia Chest Pain Hypertension Shortness of Breath Encounter Details Date Type Department Care Team (Late st Contact Info) Description 11/18/2017 10:45 AM EST Office Visit [facility] [address] [facility] [address] [place] [address] Abebe Diego MD [address] [facility] [address] [place] [address] History of Takotsubo cardiomyopathy (Primary Dx); Atrial tachycardia; Essential hypertension; Chest pain, unspecified type Social History Tobacco Use Types Packs/Day [...] Sign Reading Time Taken Comments Blood Pressure 144/80 11/18/2017 10:26 AM EST Pulse 61 11/18/2017 10:26 AM EST Temperature - - Respiratory Rate - - Oxygen Saturation 96% 11/18/2017 10:26 AM EST Inhaled Oxygen Concentration - - Weight 78.3 kg (172 lb 9.6 oz) 11/18/2017 10:26 AM EST Height 167.6 cm (5' 6 ) 11/18/2017 10:26 AM EST Body Mass Index 27.86 11/18/2017 10:26 AM EST documented in this encounter Progress Notes * Abebe Diego MD - 11/18/2017 10:45 AM EST Subjective: Encounter Date:11/18/2017 Patient ID: Rachael Fleming is a 72 y.o. female. Chief Complaint: Atrial tachycardia; Chest Pain; Hypertension; and Shortness of Breath PROBLEM LIST: 1. Cardiomyopathy, Takotsubo's. a. Initial diagnosis (1996) with subsequent recovery. b. Recurrence with diagnosis of Takotsubo syndrome (2007) at the [facility]. c. Recurrence (10/26/2016) d. Resolved by echocardiogram [...] resection. History of Present Illness Rachael Fleming presents today for a 1 month hospital follow-up for chest pain. The patient has a history of Takotsubo syndrome, coronary artery disease, recurrent palpitations, and cardiac risk factors. She states that she had to go to the ER because she experienced an intense event of chest pain,palpitations, dizziness, and shortness of breath. She has nitroglycerin at home, which she reports it bringing some relief for the chest pain, but it does not completely alleviate the pain. The patient monitors her blood pressure at home, which she states usually runs within normal limits, despite it running on the high side today. She notes that she experiences dyspnea on exertion, such as when she is doing groceries or running short distances. In the past, she would remain busy and active by attending exercise classes. However, because of the recent dyspnea on exertion and ER visit, she hasnot been able to exercise regularly. The patient mentions that her daughter had to have her appendix removed over the holidays, which she feels could have been a source of much of her stress. Allergies Allergen Reactions ??? Penicillins Hives ??? [...] Meals., Disp: 180 tablet, Rfl: 3 ??? clopidogrel (PLAVIX) 75 MG tablet, Take 1 tablet by mouth Daily., Disp: 90 tablet, Rfl: 3 ??? losartan-hydrochlorothiazide (HYZAAR) 50-12.5 MG per tablet, Take 1 tablet by mouth Daily., Disp: 90 tablet, Rfl: 3 ??? nitroglycerin (NITROSTAT) 0.4 MG SL tablet, Place 1 tablet under the tongue Every 5 (Five) Minutes As Needed for Chest Pain. Take no more than 3 doses in 15 minutes., Disp: 25 tablet, Rfl: 5 ??? omeprazole (priLOSEC) 40 MG capsule, Take 1 capsule by mouth Daily., Disp: 90 capsule, Rfl: 3 ??? pravastatin (PRAVACHOL) 80 MG tablet, Take 1 tablet by mouth Every Night., Disp: 90 tablet, Rfl: 3 ??? zolpidem (AMBIEN) 10 [...] and problem list. Review of Systems Constitution: Negative. Cardiovascular: Negative. Respiratory: Negative. Hematologic/Lymphatic: Negative for bleeding problem. Does not bruise/bleed easily. Skin: Negative for rash. Musculoskeletal: Negative for muscle weakness and myalgias. Gastrointestinal: Negative for heartburn, nausea and vomiting. Neurological: Negative. Objective: Vitals: 11/18/17 1026 BP: 144/80 BP Location: Right arm Patient Position: Sitting Pulse: 61 SpO2: 96% Weight: 78.3 kg (172 lb 9.6 oz) Height: 167.6 cm (66 ) Physical Exam Constitutional: She is oriented to person, place, and time. She appears well- developed and well-nourished. HENT: Mouth/Throat: Oropharynx is clear and moist. Neck: No JVD present. Carotid bruit is not present. Cardiovascular: Regular rhythm, S1 normal, S2 [...] and dry. No rash noted. Lab Review: Lab Results Component Value Date CHOL 137 06/04/2017 TRIG 54 06/04/2017 HDL 52 06/04/2017 LDLDIRECT 75 06/04/2017 AST 24 09/29/2017 ALT 22 09/29/2017 Lab Results Component Value Date GLUCOSE 114 (H) 09/29/2017 BUN 18 09/29/2017 CREATININE 0.80 09/29/2017 EGFRIFNONA 71 09/29/2017 BCR 22.5 09/29/2017 K 3.8 09/29/2017 CO2 25.0 09/29/2017 CALCIUM 10.0 09/29/2017 ALBUMIN 4.80 09/29/2017 LABIL2 1.7 09/29/2017 AST 24 09/29/2017 ALT 22 09/29/2017 Lab Results Component Value Date HGBA1C 6.00 (H) 06/04/2017 Lab Results Component Value Date TSH 1.144 09/29/2017 Procedures Assessment: Rachael was seen today for atrial tachycardia, chest pain, hypertension and shortness of breath. Diagnoses and all orders for this visit: History of Takotsubo cardiomyopathy Coronary artery disease involving [place] coronary artery of chehalis heart with angina pectoris Atrial tachycardia Essential hypertension Impression 1. Takotsubo's cardio myopathy, recurrent. No evidence recently 2. Recurrent palpitations/tachycardia, atrial tachycardia: Normal 14-day holter monitor report 3. Recurrent chest pain: Normal coronary arteries 4. Hypertension: Controlled. 5. His anxiety disorder Plan: 1. Encouraged to restart a regular exercise regimen. 2. Her symptoms are almost undoubtedly due to stress. They occur during the holiday. After the emergency surgery of her daughter. She has long-standing history of anxiety/stress induced issues. She has normal coronary arteries by catheter multiple times. Is no evidence of recurrent Takotsubo's cardio myopathy. Holter monitor was reviewed by myself, and 10-14 day monitor showed no significant arrhythmias to explain the patient's symptoms. 3. Continue current medications, as listed above. 4. Revisit in 12 months, or sooner as needed. Scribed for Abebe Diego MD by Delia Marroquin. 11/18/2017 10:57 AM IAbebe MD, personally performed the services described in this documentation as scribed by the above individual in my presence, and it is both accurate and complete Please note that portions of this note may have been completed with a voice recognition program. Efforts were made to edit the dictations, but occasionally words are mistranscribed. documented in this encounter Plan of Treatment Upcoming Encounters Date Type Department Care Team (Late st Contact Info) Description 12/22/2024 9:50 AM EST Office Visit [facility] [address] [facility] [address] [place] [address] Go Zazueta MD [address] [facility] [address] [place], [place] [id number] 01/15/2025 9:45 AM EDT Office Visit [facility] [address] [facility] [address] [place] [address] Joy Skinner APRN [address] [facility] [address] [place], [place] [id number] documented as of this encounter Visit Diagnoses Diagnosis History of Takotsubo cardiomyopathy- Primary Takotsubo syndrome Atrial tachycardia Other specified cardiac dysrhythmias Essential hypertension Unspecified essential hypertension Chest pain, unspecified type documented in this encounter Care Teams Post Anesthesia Nurse Relationship Specialty Start Date End Date Davis Foote MD [address] [place] [address] [place] [address] PCP - General 09/18/15 07/21/22 documented as of this encounter
--- OUTSIDE RECORDS SUMMARY | 2024-10-02 13:12 | XMS_ITS | Encounter Summary ---
[facility] Address [address] [place] [address] Care Team Providers Care Insurance Sales Assistant Name Role Phone Davis Foote MD Primary Care Provider [phone] Encounter Details Date Type Department Care Team (Late st Contact Info) Description 01/11/2017 Telephone [facility] [address] [facility] [address] [place] [address] Abebe Diego MD [address] [facility] [address] [place] [address] Social History Tobacco Use Types Packs/Day Years [...] encounter Miscellaneous Notes * Telephone Encounter - David Gaines RN - 01/11/2017 4:13 PM EDT Patient called to report that her increased dose of Coreg has dropped her BP. Her BP was 112/74 at lunch time and is now 87/66. Today was her first day of taking the Coreg 6.25 mg. 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 She verbalized understanding. documented in this encounter Plan of Treatment Upcoming Encounters Date Type Department Care Team (Late st Contact Info) Description 12/22/2024 9:50 AM EST Office Visit [facility] [address] [facility] [address] [place] [address] Go Zazueta MD [address] [facility] [address] [place], [place] [id number] 01/15/2025 9:45 AM EDT Office Visit [facility] [address] [facility] [address] [place] [address] Joy Skinner APRN [address] [facility] [address] [facility] [address] [place] [id number] documented as of this encounter Visit Diagnoses Not on filedocumented in this encounter Care Teams Insurance Sales Assistant Relationship Specialty Start Date End Date Davis Foote MD [address] [place] [address] [place] [address] PCP - General 09/18/15 07/21/22 documented as of this encounter
--- OUTSIDE RECORDS SUMMARY | 2024-10-02 13:12 | XMS_ITS | Encounter Summary ---
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 Name Role Phone Davis Foote MD Primary Care Provider [phone] Reason for Visit * Reason Comments Chest Pain * Auth/Cert Specialty Diagnoses / Procedures Referred By Contac t Referred To Contact Diagnoses Chest pain, unspecified type Procedures n/a Referral ID Status Reason Start Date Expiration Date Visits Re quested Visits Authorized [id number] 1 1 Encounter Details Date Type Department Care Team (Late st Contact Info) Description 06/03/2017 10:46 PM EDT - 06/04/2017 4:31 PM EDT Emergency [facility] [address] [place] [id number] Luis Blankenship DO [address] [facility] [place] [address] Juliana Rivas MD [address] [facility] [address] [place] [address] Edwardo Godfrey MD [address] [facility] [address] [place], [place] [id number] Chest pain, unspecified type (Primary Dx); Mild intermittent asthma without complication Discharge Disposition: Home or Self Care Social [...] Sign Reading Time Taken Comments Blood Pressure 123/67 06/04/2017 11:02 AM EDT Pulse 59 06/04/2017 11:02 AM EDT Temperature 36.6 ??C (97.8 ??F) 06/04/2017 11:02 AM E DT Respiratory Rate 18 06/04/2017 11:02 AM EDT Oxygen Saturation 99% 06/04/2017 11:02 AM EDT Inhaled Oxygen Concentration - - Weight 78 kg (172 lb) 06/04/2017 2:13 PM EDT Height 167.6 cm (5' 6 ) 06/04/2017 2:13 PM EDT Body Mass Index 27.76 06/04/2017 2:13 PM EDT documented in this encounter Discharge Summaries * Bianca Bansal, CARTRIDGE LOADING OPERATOR - 06/04/2017 3:02 PM EDT Images from the original note were not included. [facility] Medicine Services DISCHARGE SUMMARY Date of Admission: 06/03/2017 Date of Discharge: 06/04/2017 Primary Care Physician: Davis Foote MD Consulting Physician(s) Provider Relationship Abebe Gary MD Consulting Physician Discharge Diagnoses: Active Hospital Problems ( Indicates Principal Problem) Diagnosis Date Noted ??? Chest pain [R07.9] 06/04/2017 ??? Hypertension [I10] 06/04/2017 ??? Coronary artery disease, history of NSTEMI [I25.10] 11/05/2016 a. August 1997, cardiac catheterization with normal coronary arteries. Normal EF. b. Cardiac catheterization, June 2008, with no significant coronary artery disease. Ejection fraction at that time 20%. c. January 2009, echocardiogram with ejection fraction of 55 +/- 5%. ??? History of Takotsubo cardiomyopathy [I51.81] 10/26/2016 d. Initial diagnosis, 1996, with subsequent recovery. e. Recurrence with diagnosis of Takotsubo syndrome, 2007, at the [facility]. ??? DONNA (obstructive sleep apnea) [G47.33] 10/26/2016 Resolved Hospital Problems Diagnosis Date Noted Date Resolved No resolved problems to display. Presenting Problem/History of Present Illness Chest pain, unspecified type [R07.9] Chief Complaint on Day of Discharge: chest pain Hospital Course Patient is a 71 y.o. female with past medical history of CAD small vessel disease, NSTEMI, and recurrent Takotsubo cardiomyopathy; follows with Dr. Gary that presented last evening, 06/03/2017 with complaints of sudden onset chest pain around 8 PM with tightness/heaviness. This was accompanied by shortness of breath and inability to take a breath. Prior to arriving to ED she took Xanax, Tums and sublingual nitroglycerin with improvement in pain/symptoms on arrival to ED last evening. She was admitted for ACS rule out. Cardiology, Dr. Gary was consulted. Cardiac workup/enzymes were negative this admission. Repeat echocardiogram was done she has had onerecently in December 2016 with recovered/normal EF after her admission in October 2016 for progressive oh cardiomyopathy, and was deferred by cardiology. Cardiology didn't feel on evaluation for chest tightness/heaviness was related to atrial/supraventricular tachycardia episode in an noncardiac chest pain event. There has been no evidence of active ischemia this admission and patient has had multiple evaluations for ischemia in the past. To resume all current home medications. Beta gail was not increased due to intolerance and increased fatigue/bradycardia in the past. Patient will follow-up with Dr. Gary 06/24/2017. Patient to follow-up with primary care, Dr. Foote in 1 week. Procedures Performed Consults: Consults Date and Time Order Name Status Description 06/04/2017 0311 Inpatient Consult to Cardiology Completed Pertinent Test Results: Results for RACHAEL WHITEHEAD ( ) as of 06/04/2017 14:49 Ref. Range 06/04/2017 07:05 Troponin I Latest Ref Range: <=0.039 ng/mL 0.017 Glucose Latest Ref Range: 70 - 100 mg/dL 104 (H) Sodium Latest Ref Range: 132 - 146 mmol/L 136 Potassium Latest Ref Range: 3.5 - 5.5 mmol/L 3.9 CO2 Latest Ref Range: 20.0 - 31.0 mmol/L 29.0 Chloride Latest Ref Range: 99 - 109 mmol/L 100 Anion Gap Latest Ref Range: 3.0 - 11.0 mmol/L 7.0 Creatinine Latest Ref Range: 0.60 - 1.30 mg/dL 0.70 BUN Latest Ref Range: 9 - 23 mg/dL 13 BUN/Creatinine Ratio Latest Ref Range: 7.0 - 25.0 18.6 Calcium Latest Ref Range: 8.7 - 10.4 mg/dL 9.9 eGFR Non Amer Latest Ref Range: >60 mL/min/1.73 83 TSH Baseline Latest Ref Range: 0.350 - 5.350 mIU/mL 0.940 Free T4 Latest Ref Range: 0.89 - 1.76 ng/dL 1.13 Total Cholesterol Latest Ref Range: 0 - 200 mg/dL 137 HDL Cholesterol Latest Ref Range: 40 - 60 mg/dL 52 LDL Cholesterol Latest Ref Range: 0 - 130 mg/dL 75 Triglycerides Latest Ref Range: 0 - 150 mg/dL 54 Results for RACHAEL WHITEHEAD ( ) as of 06/04/2017 14:49 Ref. Range 06/04/2017 02:18 Creatine Kinase Latest Ref Range: 26 - 174 U/L 75 CKMB Latest Ref Range: 0.00 - 5.00 ng/mL <0.20 Results for RACHAEL WHITEHEAD ( ) as of 06/04/2017 14:49 Ref. Range 06/04/2017 06:11 Hemoglobin A1C Latest Ref Range: 4.80 - 5.60 % 6.00 (H) Results for RACHAEL WHITEHEAD ( ) as of 06/04/2017 14:49 Ref. Range 06/04/2017 06:11 Protime Latest Ref Range: 9.6 - 11.5 Seconds 10.7 INR Unknown 0.98 aPTT Latest Ref Range: 24.0 - 31.0 seconds 27.9 WBC Latest Ref Range: 3.50 - 10.80 10*3/mm3 9.33 RBC Latest Ref Range: 3.89 - 5.14 10*6/mm3 4.69 Hemoglobin Latest Ref Range: 11.5 - 15.5 g/dL 13.6 Hematocrit Latest Ref Range: 34.5 - 44.0 % 40.8 RDW Latest Ref Range: 11.3 - 14.5 % 12.4 MCV Latest Ref Range: 80.0 - 99.0 fL 87.0 MCH Latest Ref Range: 27.0 - 31.0 pg 29.0 MCHC Latest Ref Range: 32.0 - 36.0 g/dL 33.3 MPV Latest Ref Range: 6.0 - 12.0 fL 9.7 Platelets Latest Ref Range: 150 - 450 10*3/mm3 329 RDW-SD Latest Ref Range: 37.0 - 54.0 fl 39.7 XR Chest, 1 View ?? CLINICAL HISTORY: 71 years old, female; Pain; Chest pain; Type not specified; Additional info: Chest pain triage protocol ?? TECHNIQUE: Frontal view of the chest. ?? EXAM DATE/TIME: 06/03/2017 10:50 PM ?? COMPARISON: 09/27/10 ?? FINDINGS: No focal pulmonary consolidation is demonstrated. ?? No significant obscuration of the lateral costophrenic angles is demonstrated. ?? No significant vascular congestion is demonstrated. ?? Visualized cardiac silhouette size appears within normal limits. ?? IMPRESSION: No acute pulmonary process is demonstrated. ?? Condition on Discharge: stable Physical Exam on Discharge:BP 123/67 (BP Location: Left arm, Patient Position: Lying) Pulse 59 Temp 97.8 ??F (36.6 ??C) (Oral) Resp 18 Ht 66 (167.6 cm) Wt 172 lb (78 kg) SpO2 99% BMI 27.76 kg/m2 Physical Exam Constitutional: She is oriented to person, place, and time. She appears well- developed and well-nourished. No distress. HENT: Head: Normocephalic. Mouth/Throat: No oropharyngeal exudate. Eyes: Pupils are equal, round, and reactive to light. No scleral icterus. Neck: Normal range of motion. No JVD present. Cardiovascular: Normal rate, regular rhythm and intact distal pulses. Murmur heard. Pulmonary/Chest: Effort normal and breath sounds normal. No respiratory distress. She has no wheezes. Abdominal: Soft. Bowel sounds are normal. She exhibits no distension. There is no tenderness. Musculoskeletal: Normal range of motion. Neurological: She is alert and oriented to person, place, and time. Skin: Skin is warm and dry. Psychiatric: She has a normal mood and affect. Her behavior is normal. Judgment and thought contentnormal. Discharge Disposition Home or Self Care Discharge Medications Rachael Whitehead Home Medication Instructions ANNIE:[id number] Printed on:06/04/17 7820 Medication Information ALPRAZolam (XANAX) 0.25 MG tablet Take 0.25 mg by mouth At Night As Needed for anxiety. aspirin 81 MG EC tablet Take 81 mg by mouth Daily. carvedilol (COREG) 3.125 MG tablet TAKE 1 TABLET EVERY 12 HOURS clopidogrel (PLAVIX) 75 MG tablet take 1 tablet by mouth once daily losartan-hydrochlorothiazide (HYZAAR) 50-12.5 MG per tablet take 1 tablet by mouth once daily nitroglycerin (NITROSTAT) 0.[address] 0.4 mg under the tongue Every 5 (Five) Minutes As Needed for chest pain. Take no more than 3 doses in 15 minutes. omeprazole (priLOSEC) 40 MG capsule Take 40 mg by mouth Daily. pravastatin (PRAVACHOL) 80 MG tablet TAKE 1 TABLET EVERY NIGHT zolpidem (AMBIEN) 10 MG tablet Take 5 mg by mouth At Night As Needed for sleep. Discharge Diet: Diet Instructions Diet: Regular, Cardiac; Thin Liquids, No Restrictions Discharge Diet: Regular Cardiac Fluid Consistency: Thin Liquids, No Restrictions cardiac Discharge Care Plan / Instructions: Activity at Discharge: Activity Instructions Activity as Tolerated as tolerates Follow-up Appointments Future Appointments Date Time Provider Department Center 06/24/2017 2:15 PM Abebe Gary MD [facility] None Additional Instructions for the Follow-ups that You Need to Schedule Discharge Follow-Up With Specified Provider As directed To: Dr. Gary as scheduled 06/24 Discharge Follow-up with PCP As directed Follow Up Details: 1 week Test Results Pending at Discharge Order Current Status T3, Free In process Bianca Bansal APRN 06/04/17 3:10 PM Time: Discharge 28 min Please note that portions of this note may have been completed with a voice recognition program. Efforts were made to edit the dictations, but occasionally words are mistranscribed. Cosigned by Edwardo Godfrey MD at 06/04/2017 7:00 PM EDT Associated attestation - Edwardo Godfrey MD - 06/04/2017 7:00 PM EDT I supervised care of the patient on day of discharge with direct care provided by the advanced careprovider (APC) Patient not seen by me, was available for questions. Edwardo Godfrey MD documented in this encounter Discharge Instructions * Attachments The following attachments cannot be sent through Care Everywhere. * CARDIAC REHABILITATION (EMIRATI) * CHEST WALL PAIN (EMIRATI) * NONSPECIFIC CHEST PAIN (EMIRATI) documented in this encounter Medications at Time of Discharge aspirin 81 MG EC tablet Take 1 tablet by mouth Daily. ALPRAZolam (XANAX) 0.25 MG tablet Take 0.25 mg by mouth At Night As Needed for Anxiety (0.5 tablet PRN). 2 carvedilol (COREG) 3.125 MG tabletIndications:Ta kotsubo cardiomyopathy TAKE 1 TABLET EVERY 12 HOURS 60 tablet 3 03/17/2017 7 clopidogrel (PLAVIX) 75 MG tablet take 1 tablet by mouth once daily 30 tablet 3 03/30/2017 7 losartan-hydrochloro thiazide (HYZAAR) 50-12.5 MG per tabletIndications:Es sential hypertension,NICM (nonischemic cardiomyopathy) take 1 tablet by mouth once daily 30 tablet 3 03/17/2017 7 nitroglycerin (NITROSTAT) 0.[address] 0.4 mg under the tongue Every 5 (Five) Minutes As Needed for chest pain. Take no more than 3 doses in 15 minutes. 7 omeprazole (priLOSEC) 40 MG capsule Take 40 mg by mouth Daily. 7 pravastatin (PRAVACHOL) 80 MG tablet TAKE 1 TABLET EVERY NIGHT 30 tablet 3 03/17/2017 7 zolpidem (AMBIEN) 10 MG tablet Take 5 mg by mouth At Night As Needed for sleep. 1 documented as of this encounter Progress Notes * Edwardo Godfrey MD - 06/04/2017 1:40 PM EDT Images from the original note were not included. [facility] Medicine Services LOS- Day 0 Patient not personally seen by me today , chart reviewed, labs reviewed. Continue current care. Cardiology consult ongoing eval Discussed with MILANA Godfrey MD171:40 PM * Vira Smith RN - 06/04/2017 11:53 AM EDT Discharge Planning Assessment [facility] Patient Name: Rachael Whitehead Today's Date: 06/04/2017 Admit Date: 06/03/2017 Discharge Needs Assessment 06/04/17 1139 Living Environment Lives With spouse Living Arrangements house Home Accessibility no concerns Stair Railings at Home none Type of Financial/Environmental Concern none Transportation Available car Living Environment Provides Primary Care For no one Quality Of Family Relationships supportive Able to Return to Prior Living Arrangements yes Discharge Needs Assessment Concerns To Be Addressed no discharge needs identified Readmission Within The Last 30 Days no previous admission in last 30 days Anticipated Changes Related to Illness none Equipment Currently Used at Home bipap/ cpap has cpap but does not use it, states she couldn't sleep Equipment Needed After Discharge none Discharge Disposition still a patient Discharge Contact Information if Applicable Cell phone only- [phone] Discharge Plan 06/04/17 1142 Case Management/Social Work Plan Plan Home with Spouse Patient/Family In Agreement With Plan yes Additional Comments Met with and Mrs. Whitehead at the , Mrs. Whitehead is completely independant with ADL's, she reports having a cpap machine that she does not use and could not remember where she got it. She denies having any other DME or HH services. They live in a one story house with 2 stairs at the entry, no rails. She has [employer] Medicare and reports no problems with copay and medication affordability. Plan is to return home with , no needs identified at this time. CM will cont. to follow. Discharge Placement No information found Expected Discharge Date and Time Expected Discharge Date Expected Discharge Time Jun 05, 2017 Demographic Summary 06/04/17 1138 Referral Information Admission Type observation Arrived From home or self-care Referral Source admission list Record Reviewed clinical discipline documentation;history and physical;medical record Primary Care Physician Information Name Davis Foote Functional Status 06/04/17 1138 Functional Status Current Current Functional Level Comment see nursing notes Functional Status Prior Ambulation 0-->independent Transferring 0-->independent Toileting 0-->independent Bathing 0-->independent Dressing 0-->independent Eating 0-->independent Communication 0-->understands/communicates without difficulty Swallowing 0-->swallows foods/liquids without difficulty IADL Medications independent Meal Preparation independent Housekeeping independent Laundry independent Shopping independent Oral Care independent Activity Tolerance Current Activity Limitations none Usual Activity Tolerance good Current Activity Tolerance good Psychosocial None Abuse/Neglect None Legal None Substance Abuse None Patient Forms None Vira Smith RN * Shania Parkinson MA - 06/04/2017 10:47 AM EDT Pt. Referred for Phase II Cardiac Rehab. Staff discussed benefits of exercise, program protocol, and educational material provided. Teach back verified. Patient states that she will call staff when she is ready to schedule. documented in this encounter H&P Notes * Juliana Rivas MD - 06/04/2017 1:17 AM EDT Images from the original note were not included. [facility] Medicine Services HISTORY AND PHYSICAL Primary Care Physician: Davis Foote MD Cardiology: Dr. Abebe Gary / Kushal Silverman APRN Subjective Chief Complaint: chest pain History of Present Illness: Mrs. Whitehead presented to the ED 06/03/17 evening after an episode of chest pain around 1999. Suddenonset. Severe. Tightness/heaviness quality like something sitting on her chest, smothering, and SOA. Constant. Improved some with taking a xanax and a tums, and then with taking a nitro SL on her wayto the ED, as well as aspirin she received in the ED. She reports it is more mild-moderate now constant, and some severe intermittent pains. Does not radiate. Also associated with palpitations and tachycardia (states HR 120s during the episode), and dizziness that now resolved. She states earlier this week she had a 24 hour stomach bug with diarrhea that resolved by the next day, and she has noticed some edema to her hands recently which is new to her (chronic intermittent BLE edema, she deniesany weight gain and weighs herself a few times a week). Mrs. Whitehead has a history of CAD small vessel disease, NSTEMI, and recurrent Takotsubo cardiomyopathy; she follows with Dr. Gary. She was last hospitalized here at [facility] 10/2016 for Takotsubo cardiomyopathy and NSTEMI where she underwent a heart cath and then medical management for small vessel disease, and her repeat ECHO in 12/2016 had a normal EF. Mrs. Whitehead is being admitted to [facility] for further evaluation. 71 YO FEMALE W/ HX OF TAKOTSUBO CARDIOMYOPATHY, NSTEMI W/ MOST RECENT HEART CATH 10/16 NEGATIVE HERE W/ CP/TIGHTNESS AND ASSOCIATED W/ DYSPNEA. RELEIVED W/ NTG. PT WAS SUPPOSED TO BE INITIATED ON IMDUR BUT WANTED TO WAIT UNTIL SHE SAW DR. GARY. ALSO NOTES HR WAS 120 Review of Systems Constitutional: Positive for fatigue. Negative for activity change, appetite change, chills, diaphoresis, fever and unexpected weight change. Reports weighs herself a few times a week for fluid management and has been at her baseline around 172 lbs even in the last few days. HENT: Negative for nosebleeds and trouble swallowing. Respiratory: Positive for apnea, cough, chest tightness and shortness of breath. Negative for wheezing. Reports refuses NPPV. Acute chest tightness/heaviness pain improving some. Dry cough x1 month, not associated to a certain time. Acute SOA improved. Cardiovascular: Positive for chest pain, palpitations and leg swelling. Acute chest pain improving. Chronic chest discomfort with exertion at baseline. Palpitations resolved now. Chronic intermittent BLE edema, none today, baseline, did have it newly in hands a few days ago but now resolved. Gastrointestinal: Negative for abdominal distention, abdominal pain, blood in stool, constipation, nausea and vomiting. A few episodes of diarrhea x1 day a few days ago with nausea and indigestion, since resolved. Genitourinary: Negative for difficulty urinating, hematuria and pelvic pain. Denies dark or odorous urine. Musculoskeletal: Hx joint pains and muscle cramps, on statin. Skin: Negative for color change, pallor, rash and wound. Neurological: Positive for dizziness, weakness and light-headedness. Negative for seizures, syncopeand facial asymmetry. Dizziness resolved, occ intermittent light headedness in the past. Hematological: Bruises/bleeds easily. Psychiatric/Behavioral: Negative for agitation, behavioral problems, confusion and hallucinations. Denies memory loss. Otherwise complete ROS performed and negative except as mentioned in the HPI. Past Medical History: Diagnosis Date ??? Asthma ??? Atrial tachycardia ??? Chest pain 06/04/2017 ??? CHF (congestive heart failure) ??? Coronary artery disease 11/05/2016 ??? Hiatal hernia ??? Hypertension ??? Irritable bowel ??? Nephrolithiasis ??? DONNA (obstructive sleep apnea) could not tolerate cpap. ??? Palpitations 11/05/2016 Recurrent-tachyarrhythmias Normal Holter, October 2011. Event recorder shows atrial tachycardia at145 beats per minute, which is symptomatic. ??? PUD (peptic ulcer disease) 11/05/2016 ??? Takotsubo cardiomyopathy Initially diagnosed at [place] 2008. EF 20 at that time. 2009 EF 55% Past Surgical History: Procedure Laterality Date ??? BREAST LUMPECTOMY Right 20 years ago- extracted and benign ??? CARDIAC CATHETERIZATION 2002 no stents. ??? CARDIAC CATHETERIZATION N/A 10/26/2016 Procedure: Left Heart Cath; Surgeon: Lisa Hensley MD; Location: [facility]AS[facility]; Service: ??? CATARACT EXTRACTION, BILATERAL ??? HYSTERECTOMY Family History Problem Relation Age of Onset ??? Heart disease Mother ??? Stroke Mother ??? Heart disease Father ??? Cancer Sister ??? Stroke Maternal Grandmother ??? Heart disease Maternal Grandfather ??? Heart failure Maternal Grandfather ??? Heart failure Paternal Grandmother ??? Heart disease Paternal Grandfather Social History Social History ??? Marital status: Spouse name: N/A ??? Number of children: 2 ??? Years of education: N/A Occupational History ??? Retired Social History Main Topics ??? Smoking status: Never Smoker ??? Smokeless tobacco: Never Used ??? Alcohol use No ??? Drug use: No ??? Sexual activity: Defer Other Topics Concern ??? Not on file Social History Narrative Patient drinks 1 servings of caffeine per day, patient lives at home with her . Medications: ALPRAZolam (XANAX) 0.25 MG tablet Take 0.25 mg by mouth At Night As Needed for anxiety. ? aspirin 81 MG EC tablet Take 81 mg by mouth Daily. ? carvedilol (COREG) 3.125 MG tablet TAKE 1 TABLET EVERY 12 HOURS ? clopidogrel (PLAVIX) 75 MG tablet take 1 tablet by mouth once daily ? losartan-hydrochlorothiazide (HYZAAR) 50-12.5 MG per tablet take 1 tablet by mouth once daily ? nitroglycerin (NITROSTAT) 0.[address] 0.4 mg under the tongue Every 5 (Five) Minutes As Needed for chest pain. Take no more than 3 doses in 15 minutes. ? omeprazole (priLOSEC) 40 MG capsule Take 40 mg by mouth Daily. ? pravastatin (PRAVACHOL) 80 MG tablet TAKE 1 TABLET EVERY NIGHT ? zolpidem (AMBIEN) 10 MG tablet Take 5 mg by mouth At Night As Needed for sleep. Allergies: Allergies Allergen Reactions ??? Penicillins Hives ??? Phenergan [Promethazine Hcl] Hives ??? Statins Myalgia ??? Sudafed [Pseudoephedrine Hcl] Rash ??? Sulfa Antibiotics Rash Objective Physical Exam: Vital Signs: BP 128/82 Pulse 64 Temp 97.5 ??F (36.4 ??C) (Oral) Resp 20 Ht 66 (167.6 cm) Wt 172 lb (78 kg) SpO2 96% BMI 27.76 kg/m2 Physical Exam Constitutional: She is oriented to person, place, and time. She appears well- developed and well-nourished. No distress. Family is present and attentive/supportive. HENT: Head: Normocephalic and atraumatic. Mouth/Throat: Oropharynx is clear and moist. No oropharyngeal exudate. MM pink/moist, tongue pink/pale/dry (chewed baby aspirin earlier). Eyes: Conjunctivae and EOM are normal. Pupils are equal, round, and reactive to light. Right eye exhibits no discharge. Left eye exhibits no discharge. No scleral icterus. Pupils 2 mm. Neck: No JVD present. No tracheal deviation present. Cardiovascular: Normal rate, regular rhythm, normal heart sounds and intact distal pulses. No murmur heard. No edema. DPs 2+ and radials 2+. Pulmonary/Chest: Effort normal and breath sounds normal. No respiratory distress. She has no wheezes. She has no rales. She exhibits no tenderness. Abdominal: Soft. She exhibits no distension. Bowel sounds are decreased. There is no tenderness. There is no rigidity, no guarding and negative Bear's sign. Genitourinary: Genitourinary Comments: Bladder non-distended, non-tender. Musculoskeletal: She exhibits no edema or deformity. Neurological: She is alert and oriented to person, place, and time. No cranial nerve deficit. Coordination normal. Skin: Skin is warm and dry. No rash noted. She is not diaphoretic. No erythema. No pallor. [place], pt states lays out in the pool often. Psychiatric: She has a normal mood and affect. Her behavior is normal. Judgment and thought contentnormal. Calm, relaxed, cooperative, engages. PRESENT AND ASSISTED W/ ABOVE EXAM Results Reviewed: Lab Results (last 24 hours) Procedure Component Value Units Date/Time CBC & Differential [[id number]] Collected: 06/03/172310 Specimen: Blood Updated: 06/03/172321 Narrative: The following orders were created for panel order CBC & Differential. Procedure Abnormality Status --------- ------ CBC Auto Differential[[id number]] Abnormal Final result Please view results for these tests on the individual orders. Comprehensive Metabolic Panel [[id number]] (Abnormal) Collected: 06/03/172310 Specimen: Blood Updated: 06/03/172347 Glucose 134 (H) mg/dL BUN 14 mg/dL Creatinine 0.90 mg/dL Sodium 134 mmol/L Potassium 4.1 mmol/L Chloride 99 mmol/L CO2 24.0 mmol/L Calcium 10.2 mg/dL Total Protein 8.0 g/dL Albumin 4.60 g/dL ALT (SGPT) 23 U/L AST (SGOT) 35 (H) U/L Alkaline Phosphatase 99 U/L Total Bilirubin 0.5 mg/dL eGFR Non Amer 62 mL/min/1.73 Globulin 3.4 gm/dL A/G Ratio 1.4 (L) g/dL BUN/Creatinine Ratio 15.6 Anion Gap 11.0 mmol/L Narrative: [employer] Guidelines Stage Description GFR 1 Normal or High 90+ 2 Mild decrease 60-89 3 Moderate decrease 30-59 4 Severe decrease 15-29 5 Kidney failure <15 Lipase [[id number]] (Abnormal) Collected: 06/03/172310 Specimen: Blood Updated: 06/03/178 Lipase 53 (H) U/L BNP [[id number]] (Normal) Collected: 06/03/172310 Specimen: Blood Updated: 06/03/17 2350 BNP 15.0 pg/mL CBC Auto Differential [[id number]] (Abnormal) Collected: 06/03/172310 Specimen: Blood Updated: 06/03/172321 WBC 10.61 10*3/mm3 RBC 4.54 10*6/mm3 Hemoglobin 13.5 g/dL Hematocrit 39.2 % MCV 86.3 fL MCH 29.7 pg MCHC 34.4 g/dL RDW 12.4 % RDW-SD 39.3 fl MPV 9.6 fL Platelets 341 10*3/mm3 Neutrophil % 65.2 % Lymphocyte % 22.7 (L) % Monocyte % 10.1 % Eosinophil % 1.5 % Basophil % 0.3 % Immature Grans % 0.2 % Neutrophils, Absolute 6.92 10*3/mm3 Lymphocytes, Absolute 2.41 10*3/mm3 Monocytes, Absolute 1.07 (H) 10*3/mm3 Eosinophils, Absolute 0.16 10*3/mm3 Basophils, Absolute 0.03 10*3/mm3 Immature Grans, Absolute 0.02 10*3/mm3 POC Troponin, Rapid [[id number]] (Normal) Collected: 06/03/172315 Specimen: Blood Updated: 06/03/172329 Troponin I 0.02 ng/mL Serial Number: [id number]: [id number] ECG Vent. rate 83 BPM HI interval 146 ms QRS duration 80 ms QT/QTc 384/451 ms P-R-T axes 52 10 49 Normal sinus rhythm Low voltage QRS Borderline ECG When compared with ECG of 26-OCT-2016 10:42, Non-specific change in ST segment in Lateral leads Nonspecific T wave abnormality, improved in Lateral leads XR Chest, 1 View ?? CLINICAL HISTORY: 71 years old, female; Pain; Chest pain; Type not specified; Additional info: Chest pain triage protocol ?? TECHNIQUE: Frontal view of the chest. ?? EXAM DATE/TIME: 06/03/2017 10:50 PM ?? COMPARISON: 09/27/10 ?? FINDINGS: No focal pulmonary consolidation is demonstrated. ?? No significant obscuration of the lateral costophrenic angles is demonstrated. ?? No significant vascular congestion is demonstrated. ?? Visualized cardiac silhouette size appears within normal limits. ?? IMPRESSION: No acute pulmonary process is demonstrated. I have personally reviewed and interpreted available lab data, radiology studies and ECG obtained at time of admission. Assessment / Plan Problem List: Hospital Problem List * (Principal)Chest pain History of Takotsubo cardiomyopathy Overview Signed 11/05/2016 7:22 AM by Thea Gallaway a. Initial diagnosis, 1996, with subsequent recovery. b. Recurrence with diagnosis of Takotsubo syndrome, 2007, at the [facility]. DONNA (obstructive sleep apnea) (Chronic) Coronary artery disease, history of NSTEMI (Chronic) Overview Signed 11/05/2016 7:23 AM by PsomasFMG Gallaway c. August 1997, cardiac catheterization with normal coronary arteries. Normal EF. d. Cardiac catheterization, June 2008, with no significant coronary artery disease. Ejection fraction at that time 20%. e. January 2009, echocardiogram with ejection fraction of 55 +/- 5%. Hypertension Assessment / Plan: 1. Chest pain: W/ HX OF TAKOTSUBO CARDIOMYOPATHY WELL NSTEMI AND FLUCTUATING EF FROM 20-55%; W/ HER C/O TACHYCARDIA WILL CHECK DDIMER PLUS OR MINUS CCTA TO RULE OUT PE. CURRENTLY W/O C/O. - Trend cardiac enzymes and EKG. Non-specific ST changes in lateral. - BNP 15. - NPO. - Repeat ECHO in AM, consider stress test. - Consult cardiology in AM. - Hx Takotsubo cardiomyopathy 10/2016 with normal EF 12/2016, hx in 2007 at [facility] with EF 20% there on cath. When saw cardiology PA 06/01/2017 was still having occ chest discomfort on exertion butpt declined start of imdur vs ranexa until could get in with Dr. Gary. - Continue ARB, low dose coreg (could not tolerate higher doses in past r/t fatigue and hypotension), aspirin (received additional load in ED), plavix. - Daily weights. Not on fluid restriction. Diet. - Add d dimer - if positive consider CTA chest. CKD II. - Negative CXR. - Hx peptic ulcer disease, on PPI, continue. 2. Coronary artery disease: - Continue aspirin, plavix, statin, coreg. - Last heart cath 10/2016, medical management for small vessel disease. - Last stress test ~12/2015 per pt. 3. Obstructive sleep apnea: - Refuses NPPV. 4. Hypertension: - Continue ARB and hold HCTZ part for now. - BB, only tolerates low dose r/t hypotension and fatigue. DVT prophylaxis: Teds, scuds, heparin SQ for DVT prophylaxis but will defer need for anticoagulation for now. Code Status: Full code / full support. No desired restrictions. Spouse as next of kin. No LW or AD.Discussed with pt and family. Admission Status: Patient will be admitted to OBSERVATION status, however if further evaluation or treatment plans warrant, status may change. Based upon current information, I predict patient's careencounter to be less than or equal to 2 midnights. Ara Salmon, BO 06/04/17 2:02 AM documented in this encounter Consult Notes * Abebe Gary MD - 06/04/2017 9:09 AM EDTAssociated Order(s): IP CONSULT TO CARDIOLOGY [facility] Consult Note Referring Provider: Dr. Kristen Rivas Reason for Consultation: chest pain Patient Care Team: Davis Foote MD as PCP - General Davis Foote MD as PCP - Family Medicine PROBLEM LIST: 1. Cardiomyopathy. a. Initial diagnosis, 1996, with subsequent recovery. b. Recurrence with diagnosis of Takotsubo syndrome, 2007, at the [facility]. c. Recurrence 10/26/16 d. Resolved by ECHO 12/2016 2. Coronary artery disease. a. August 1997, cardiac catheterization with normal coronary arteries. Normal EF. b. Cardiac catheterization, June 2008, with no significant coronary artery disease. Ejection fraction at that time 20%. c. January 2009, echocardiogram with ejection fraction of 55 +/- 5%. d. C 10/26/16: Takotsubo/stress-induced cardiomyopathy with severe LV systolic dysfunction, EF 20%. Near normal coronary arteries. e. Echo 10/28/16: EF 41%. Findings consistent with stress-induced (Takotsubo ) cardiomyopathy. MildMR, mild TR. 3. Recurrent palpitations/tachyarrhythmias. a. Normal Holter, October 2011. b. Event recorder shows atrial tachycardia at 145 beats per minute, which is symptomatic. 4. Peptic ulcer disease. 5. Hiatal hernia. 6. Irritable bowel syndrome 7. Obstructive sleep apnea. noncompliant with CPAP machine. 8. Hypertension. 9. Nephrolithiasis. 10. Surgeries. a. Breast lumpectomies extracted and benign. b. Hysterectomy. c. Bilateral cataract extraction with lens implantation. d. Right breast resection. Allergies Allergen Reactions ??? Penicillins Hives ??? Phenergan [Promethazine Hcl] Hives ??? Statins Myalgia ??? Sudafed [Pseudoephedrine Hcl] Rash ??? Sulfa Antibiotics Rash Current Facility-Administered Medications: ??? acetaminophen (TYLENOL) tablet 650 mg, 650 mg, Oral, Q4H PRN, Ara Salmon, CARTRIDGE LOADING OPERATOR ??? albuterol (PROVENTIL) nebulizer solution 0.083% 2.5 mg/3mL, 2.5 mg, Nebulization, Q4H PRN, Ara Salmon, CARTRIDGE LOADING OPERATOR ??? ALPRAZolam (XANAX) tablet 0.25 mg, 0.25 mg, Oral, Nightly PRN, Ara Salmon, CARTRIDGE LOADING OPERATOR ??? aspirin EC tablet 81 mg, 81 mg, Oral, Daily, Ara Salmon, CARTRIDGE LOADING OPERATOR ??? atorvastatin (LIPITOR) tablet 20 mg, 20 mg, Oral, Nightly, Ara Salmon, CARTRIDGE LOADING OPERATOR ??? bisacodyl (DULCOLAX) EC tablet 5 mg, 5 mg, Oral, Daily PRN, Ara Salmon, CARTRIDGE LOADING OPERATOR ??? carvedilol (COREG) tablet 3.125 mg, 3.125 mg, Oral, Q12H, Ara Salmon, CARTRIDGE LOADING OPERATOR ??? clopidogrel (PLAVIX) tablet 75 mg, 75 mg, Oral, Daily, Ara Salmon, CARTRIDGE LOADING OPERATOR ??? docusate sodium (COLACE) capsule 100 mg, 100 mg, Oral, BID PRN, Ara Salmon, CARTRIDGE LOADING OPERATOR ??? famotidine (PEPCID) tablet 20 mg, 20 mg, Oral, BID PRN, Ara Salmon, CARTRIDGE LOADING OPERATOR ??? heparin (porcine) 5000 UNIT/ML injection 5,000 Units, 5,000 Units, Subcutaneous, Q12H, Ara Salmon, CARTRIDGE LOADING OPERATOR ??? LORazepam (ATIVAN) injection 0.5 mg, 0.5 mg, Intravenous, Q15 Min PRN, Luis [place], DO, 0.5 mg at 06/03/17 2359 ??? losartan (COZAAR) tablet 50 mg, 50 mg, Oral, Q24H, Ara Salmon, CARTRIDGE LOADING OPERATOR ??? melatonin sublingual tablet 5 mg, 5 mg, Sublingual, Nightly PRN, Ara Salmon, CARTRIDGE LOADING OPERATOR ??? ondansetron (ZOFRAN) injection 4 mg, 4 mg, Intravenous, Q6H PRN, Ara Salmon, CARTRIDGE LOADING OPERATOR ??? pantoprazole (PROTONIX) EC tablet 40 mg, 40 mg, Oral, Q AM, Ara Salmon, CARTRIDGE LOADING OPERATOR, 40 mg at06/04/17 0556 ??? sodium chloride 0.9 % flush 1-10 mL, 1-10 mL, Intravenous, PRN, Ara Salmon, CARTRIDGE LOADING OPERATOR ??? sodium chloride 0.9 % flush 10 mL, 10 mL, Intravenous, PRN, Luis Blankenship, DO Facility-Administered Medications Prior to Admission Medication Dose Route Frequency Provider Last Rate Last Dose ??? albuterol (PROVENTIL HFA;VENTOLIN HFA) inhaler 2 puff 2 puff Inhalation Q4H PRN Kushal Silverman APRN Prescriptions Prior to Admission Medication Sig Dispense Refill Last Dose ??? ALPRAZolam (XANAX) 0.25 MG tablet Take 0.25 mg by mouth At Night As Needed for anxiety. Taking ??? aspirin 81 MG EC tablet Take 81 mg by mouth Daily. Taking ??? carvedilol (COREG) 3.125 MG tablet TAKE 1 TABLET EVERY 12 HOURS 60 tablet 3 ??? clopidogrel (PLAVIX) 75 MG tablet take 1 tablet by mouth once daily 30 tablet 3 ??? losartan-hydrochlorothiazide (HYZAAR) 50-12.5 MG per tablet take 1 tablet by mouth once daily 30 tablet 3 ??? nitroglycerin (NITROSTAT) 0.[address] 0.4 mg under the tongue Every 5 (Five) MinutesAs Needed for chest pain. Take no more than 3 doses in 15 minutes. Taking ??? omeprazole (priLOSEC) 40 MG capsule Take 40 mg by mouth Daily. Taking ??? pravastatin (PRAVACHOL) 80 MG tablet TAKE 1 TABLET EVERY NIGHT 30 tablet 3 ??? zolpidem (AMBIEN) 10 MG tablet Take 5 mg by mouth At Night As Needed for sleep. Taking Subjective . History of present illness: Patient is a 71-year-old female who is admitted to [facility] and we are consulted to see and evaluate for chest pain. She has noted history of takotsubo -cardiomyopathy. Overthe last month or 2 she has had some recurrent chest pressure. Also notes that she has been more fatigued. This week she experienced a GI illness with diarrhea and upset stomach . No vomiting noted.This was Wednesday of this week. Last evening she was sitting at home and had onset of nausea and lightheadedness. She then had sudden onset of tachypalpitations. Notes that her heart rate was roughly 120. This lasted for a few minutes and then was followed by some sharp chest discomfort that was lo cated on the left side of her chest. She notes that it would start in a very localized area of infiltrate but it was spreading throughout her chest. This would last for just seconds and then resolve.However, the symptoms continued to wax and wane throughout the evening. She also experienced some shortness of breath. Due to this she presented to the emergency department for further evaluation. There she was noted to be in sinus rhythm. No tachycardia or abnormal heart rhythms noted. She does have a noted history of atrial tachycardia noted on event monitor. Has been unable to tolerate elevated doses of beta blockade in the past secondary to fatigue. She was seen by the [facility] earlier this week. At that time they had recommended Imdur therapy. However, the patient wished todefer this medication until she had a chance to speak with us. Social History Social History ??? Marital status: Spouse name: N/A ??? Number of children: 2 ??? Years of education: N/A Occupational History ??? Retired Social History Main Topics ??? Smoking status: Never Smoker ??? Smokeless tobacco: Never Used ??? Alcohol use No ??? Drug use: No ??? Sexual activity: Defer Other Topics Concern ??? Not on file Social History Narrative Patient drinks 1 servings of caffeine per day, patient lives at home with her . Family History Problem Relation Age of Onset ??? Heart disease Mother ??? Stroke Mother ??? Heart disease Father ??? Cancer Sister ??? Stroke Maternal Grandmother ??? Heart disease Maternal Grandfather ??? Heart failure Maternal Grandfather ??? Heart failure Paternal Grandmother ??? Heart disease Paternal Grandfather Review of Systems: Review of Systems Constitution: Positive for malaise/fatigue. Negative for fever and weakness. HENT: Negative for headaches and nosebleeds. Eyes: Negative for redness and visual disturbance. Cardiovascular: Positive for palpitations. Negative for orthopnea and paroxysmal nocturnal dyspnea. Respiratory: Positive for snoring. Negative for cough, sputum production and wheezing. Hematologic/Lymphatic: Negative for bleeding problem. Skin: Negative for flushing, itching and rash. Musculoskeletal: Negative for falls, joint pain and muscle cramps. Gastrointestinal: Positive for diarrhea and nausea. Negative for abdominal pain, heartburn and vomiting. Genitourinary: Negative for hematuria. Neurological: Positive for dizziness. Negative for excessive daytime sleepiness and tremors. Psychiatric/Behavioral: Negative for substance abuse. The patient is nervous/anxious. Objective Vitals: Blood pressure 146/72, pulse 58, temperature 97.5 ??F (36.4 ??C), temperature source Oral, resp. rate 20, height 66 (167.6 cm), weight 172 lb (78 kg), SpO2 100 %. Physical Exam Constitutional: She is oriented to person, place, and time. She appears well- developed and well-nourished. No distress. HENT: Head: Normocephalic and atraumatic. Eyes: Right eye exhibits no discharge. Left eye exhibits no discharge. Neck: No JVD present. No tracheal deviation present. No bruit auscultated bilaterally Cardiovascular: Normal rate, regular rhythm, normal heart sounds and intact distal pulses. Exam reveals no friction rub. No murmur heard. Pulmonary/Chest: Effort normal and breath sounds normal. Abdominal: Soft. Bowel sounds are normal. There is no tenderness. Musculoskeletal: She exhibits no edema or deformity. Neurological: She is alert and oriented to person, place, and time. Skin: Skin is warm and dry. Psychiatric: Her behavior is normal. Thought content normal. Results Review: I reviewed the patient's new clinical results. Results from last 7 days Lab Units 06/04/17 0611 WBC 10*3/mm3 9.33 HEMOGLOBIN g/dL 13.6 HEMATOCRIT % 40.8 PLATELETS 10*3/mm3 329 Results from last 7 days Lab Units 06/04/17 0705 06/03/17 2311 SODIUM mmol/L 136 134 POTASSIUM mmol/L 3.9 4.1 CHLORIDE mmol/L 100 99 CO2 mmol/L 29.0 24.0 BUN mg/dL 13 14 CREATININE mg/dL 0.70 0.90 CALCIUM mg/dL 9.9 10.2 BILIRUBIN mg/dL -- 0.5 ALK PHOS U/L -- 99 ALT (SGPT) U/L -- 23 AST (SGOT) U/L -- 35* GLUCOSE mg/dL 104* 134* Results from last 7 days Lab Units 06/04/17 0705 SODIUM mmol/L 136 POTASSIUM mmol/L 3.9 CHLORIDE mmol/L 100 CO2 mmol/L 29.0 BUN mg/dL 13 CREATININE mg/dL 0.70 GLUCOSE mg/dL 104* CALCIUM mg/dL 9.9 Results from last 7 days Lab Units 06/04/17 0611 INR 0.98 Lab Results Lab Value Date/Time TROPONINI 0.017 06/04/2017 0705 TROPONINI 0.007 06/04/2017 0218 TROPONINI 4.120 (C) 10/26/2016 1437 TROPONINI 4.248 (C) 10/26/2016 0540 TROPONINI 3.426 (C) 10/26/2016 0041 Results from last 7 days Lab Units 06/04/17 0705 TSH mIU/mL 0.940 FREE T4 ng/dL 1.13 Results from last 7 days Lab Units 06/04/17 0705 CHOLESTEROL mg/dL 137 TRIGLYCERIDES mg/dL 54 HDL CHOL mg/dL 52 Tele: SR EKG: Assessment/Plan 1. Chest pain 2. Coronary artery disease, small vessel 3. Takotsubo cardiomyopathy, resolved by last echo 12/2016. Echo ordered by the hospitalist. 4. Sleep apnea, noncompliant with CPAP 5. Palpitations and reported tachycardia. Previous history of atrial tachycardia Plan: 1. Patient with noncardiac chest pain, in the setting of tachypalpitations. Likely represented an episode of her atrial/supraventricular tachycardia. She has no evidence of active ischemia and has had multiple evaluations for ischemia in the past. Not need nitrates will not tolerate increases in her beta gail due to fatigue (in the past) and bradycardia. From my standpoint she is okay to be discharged home, a patient follow-up in my office. Joy Skinner APRN obtained past medical, family history, social history, review of systems andfunctioned as a scribe for the remainder of the dictation for Dr. Gary. Joy Skinner APRN 06/04/17 9:10 AM I, Abebe Gary MD, personally performed the services described in this documentation as scribed by the above individual in my presence, and it is both accurate and complete Dictated utilizing Dragon dictation documented in this encounter Nursing Notes * Mirtha Carmona RN - 06/04/2017 1:29 AM EDT Problem: Pain, Acute (Adult) Goal: Identify Related Risk Factors and Signs and Symptoms Outcome: Ongoing (interventions implemented as appropriate) 06/04/17128 Pain, Acute Related Risk Factors (Acute Pain) disease process Signs and Symptoms (Acute Pain) facial mask of pain/grimace;sleep pattern alteration;verbalization of pain descriptors Goal: Acceptable Pain Control/Comfort Level Outcome: Ongoing (interventions implemented as appropriate) 06/04/17128 Pain, Acute (Adult) Acceptable Pain Control/Comfort Level making progress toward outcome documented in this encounter ED Notes * Luis Blankenship DO - 06/03/2017 11:10 PM EDT Subjective HPI Comments: . Rachael Whitehead is a 71 year old female with a hx of stress- induced cardiomyopathy, CAD, HTN, CHF, and A.Fib who presents to the ED with c/o CP. The patient states that she was at home at 2000 this evening when she began to feel some chest pressure and became SoA. The patient reports taking a Xanax and a Tums afterward, which helped to alleviate some of her sx. However, an hour later, the sx returned, worse this time, and were accompanied by palpitations, neck pain, back pain,shoulder pain, dizziness, near-syncopal feelings, and nausea. The patient described this chest painas a smothering pain and rated it a 7/10. Since then, the patient states that the CP has subsidedto a 5/10, though she still feels intermittent, sporadic, sharp pains. The patient denies diaphoresis, vomiting, or any other acute sx at this time. Patient is a 71 y.o. female presenting with chest pain. History provided by: Patient Chest Pain Pain location: L chest Pain quality: pressure Pain quality comment: smothering Pain radiates to: Neck, upper back and L shoulder Pain severity: Moderate (7/10) Onset quality: Sudden Duration: 4 hours Timing: Constant Progression: Improving Chronicity: New Relieved by: Antacids (Sedative) Worsened by: Nothing Associated symptoms: back pain, dizziness, nausea and palpitations Associated symptoms: no diaphoresis and no vomiting Risk factors: coronary artery disease and hypertension Risk factors: no diabetes mellitus, not male and no smoking Risk factors comment: Hx of stress-induced cardiomyopathy, A.Fib, CHF Review of Systems Constitutional: Negative for diaphoresis. Cardiovascular: Positive for chest pain and palpitations. Gastrointestinal: Positive for nausea. Negative for vomiting. Musculoskeletal: Positive for arthralgias (Shoulder pain), back pain and neck pain. Neurological: Positive for dizziness. Near-syncope Psychiatric/Behavioral: The patient is nervous/anxious. All other systems reviewed and are [...] 11/05/2016 ??? Takotsubo cardiomyopathy Initially diagnosed at [place] 2008. EF 20 at that time. 2009 [...] Surgeon: Lisa Hensley MD; Location: [facility]; Service: ??? CATARACT [...] Social History Social History ??? Marital status: Spouse name: N/A ??? Number of children: 2 ??? Years of education: N/A Occupational History ??? Retired Social History Main Topics ??? Smoking status: Never Smoker ??? Smokeless tobacco: Never Used ??? Alcohol use No ??? Drug use: No ??? Sexual activity: Defer Other Topics Concern ??? None Social History Narrative Patient drinks 1 servings of caffeine per day, patient lives at home with her . Objective Physical Exam Constitutional: She is oriented to person, place, and time. She appears well- developed and well-nourished. No distress. HENT: Head: Normocephalic and atraumatic. Eyes: Conjunctivae are normal. Neck: Normal range of motion. Neck supple. Cardiovascular: Normal rate, regular rhythm and normal heart sounds. Exam reveals no gallop and no friction rub. No murmur heard. Pulmonary/Chest: Effort normal and breath sounds normal. No respiratory distress. She has no wheezes. She has no rales. Abdominal: Soft. Bowel sounds are normal. There is no tenderness. There is no guarding. Musculoskeletal: Normal range of motion. Neurological: She is alert and oriented to person, place, and time. Skin: Skin is warm and dry. She is not diaphoretic. Psychiatric: Her behavior is normal. Her mood appears anxious. Nursing note and vitals reviewed. Procedures ED Course ED Course Comment By Time HEART score: 6. Devon Lemons 06/04 0056 Recent Results (from the past 24 hour(s)) Comprehensive Metabolic Panel Collection Time: 06/03/17 11:11 PM Result Value Ref Range Glucose 134 (H) 70 - 100 mg/dL BUN 14 9 - 23 mg/dL Creatinine 0.90 0.60 - 1.30 mg/dL Sodium 134 132 - 146 mmol/L Potassium 4.1 3.5 - 5.5 mmol/L Chloride 99 99 - 109 mmol/L CO2 24.0 20.0 - 31.0 mmol/L Calcium 10.2 8.7 - 10.4 mg/dL Total Protein 8.0 5.7 - 8.2 g/dL Albumin 4.60 3.20 - 4.80 g/dL ALT (SGPT) 23 7 - 40 U/L AST (SGOT) 35 (H) 0 - 33 U/L Alkaline Phosphatase 99 25 - 100 U/L Total Bilirubin 0.5 0.3 - 1.2 mg/dL eGFR Non Amer 62 >60 mL/min/1.73 Globulin 3.4 gm/dL A/G Ratio 1.4 (L) 1.5 - 2.5 g/dL BUN/Creatinine Ratio 15.6 7.0 - 25.0 Anion Gap 11.0 3.0 - 11.0 mmol/L Lipase Collection Time: 06/03/17 11:11 PM Result Value Ref Range Lipase 53 (H) 6 - 51 U/L BNP Collection Time: 06/03/17 11:11 PM Result Value Ref Range BNP 15.0 0.0 - 100.0 pg/mL Light Blue Top Collection Time: 06/03/17 11:11 PM Result Value Ref Range Extra Tube hold for add-on Green Top (Gel) Collection Time: 06/03/17 11:11 PM Result Value Ref Range Extra Tube Hold for add-ons. Lavender Top Collection Time: 06/03/17 11:11 PM Result Value Ref Range Extra Tube hold for add-on Gold Top - SST Collection Time: 06/03/17 11:11 PM Result Value Ref Range Extra Tube Hold for add-ons. CBC Auto Differential Collection Time: 06/03/17 11:11 PM Result Value Ref Range WBC 10.61 3.50 - 10.80 10*3/mm3 RBC 4.54 3.89 - 5.14 10*6/mm3 Hemoglobin 13.5 11.5 - 15.5 g/dL Hematocrit 39.2 34.5 - 44.0 % MCV 86.3 80.0 - 99.0 fL MCH 29.7 27.0 - 31.0 pg MCHC 34.4 32.0 - 36.0 g/dL RDW 12.4 11.3 - 14.5 % RDW-SD 39.3 37.0 - 54.0 fl MPV 9.6 6.0 - 12.0 fL Platelets 341 150 - 450 10*3/mm3 Neutrophil % 65.2 41.0 - 71.0 % Lymphocyte % 22.7 (L) 24.0 - 44.0 % Monocyte % 10.1 0.0 - 12.0 % Eosinophil % 1.5 0.0 - 3.0 % Basophil % 0.3 0.0 - 1.0 % Immature Grans % 0.2 0.0 - 0.6 % Neutrophils, Absolute 6.92 1.50 - 8.30 10*3/mm3 Lymphocytes, Absolute 2.41 0.60 - 4.80 10*3/mm3 Monocytes, Absolute 1.07 (H) 0.00 - 1.00 10*3/mm3 Eosinophils, Absolute 0.16 0.00 - 0.30 10*3/mm3 Basophils, Absolute 0.03 0.00 - 0.20 10*3/mm3 Immature Grans, Absolute 0.02 0.00 - 0.03 10*3/mm3 D-dimer, Quantitative Collection Time: 06/03/17 11:11 PM Result Value Ref Range D-Dimer, Quantitative 0.24 0.00 - 0.50 mg/L (FEU) POC Troponin, Rapid Collection Time: 06/03/17 11:16 PM Result Value Ref Range Troponin I 0.02 0.00 - 0.07 ng/mL Troponin Collection Time: 06/04/17 2:18 AM Result Value Ref Range Troponin I 0.007 <=0.039 ng/mL CK Total & CKMB Collection Time: 06/04/17 2:18 AM Result Value Ref Range CKMB <0.20 0.00 - 5.00 ng/mL Creatine Kinase 75 26 - 174 U/L Note: In addition to lab results from this visit, the labs listed above may include labs taken at another facility or during a different encounter within the last 24 hours. Please correlate lab timeswith ED admission and discharge times for further clarification of the services performed during this visit. XR Chest 1 View Final Result Abnormal No acute pulmonary process is demonstrated. THIS DOCUMENT HAS BEEN ELECTRONICALLY SIGNED BY RANDELL MUNOZ MD Vitals: 06/04/17 0100 06/04/17 0129 06/04/17 0130 06/04/17 0144 BP: 128/82 BP Location: Patient Position: Pulse: 66 64 64 Resp: 20 Temp: TempSrc: SpO2: 95% 97% 96% Weight: Height: Medications sodium chloride 0.9 % flush 10 mL (not administered) LORazepam (ATIVAN) injection 0.5 mg (0.5 mg Intravenous Given 06/03/17 9943) aspirin chewable tablet 324 mg (324 mg Oral Given 06/03/172256) ECG/EMG Results (last 24 hours) Procedure Component Value Units Date/Time ECG 12 Lead [[id number]] Collected: 06/03/172250 Updated: 06/03/172251 HEART Score History: Moderately suspicious (+1) ECG: Non specific repolarization disturbance (+1) Age: Greater than or equal to 65 (+2) Risk Factors: 3 or more risk factors OR history of atherosclerotic disease (+2) Troponin: Normal limit or lower (+0) Total: 6 MDM Final diagnoses: Chest pain, unspecified type Documentation assistance provided by dorita Lemons. Information recorded by the dorita was done at my direction and has been verified and validated by me. Devon Lemons 06/04/17 0056 Devon Lemons 06/04/17 0059 Luis Blankenship DO 06/04/17 0310 documented in this encounter Plan of Treatment Upcoming Encounters Date Type Department Care Team (Late st Contact Info) Description 12/22/2024 9:50 AM EST Office Visit [facility] [address] [place] [address] Go Zazueta MD [address] [facility] [address] [place] [address] 01/15/2025 9:45 AM EDT Office Visit [facility] CARDIOLOGY [address] [facility] [address] [place] [id number] Joy Skinner APRN [address] [facility] [address] [facility] [address] [place], [place] [id number] documented as of this encounter Procedures Procedure Name Priority Date/Time Associated Diagnosis Comments ECHO COMPLETE W/ DOPPLER AND COLOR FLOW Routine 06/04/2017 5:18 PM EDT URINALYSIS W/ CULTURE IF INDICATED Routine 06/04/2017 11:06 AM EDT TROPONIN Routine 06/04/2017 7:05 AM EDT TSH Routine 06/04/2017 7:05 AM EDT T4, FREE Routine 06/04/2017 7:05 AM EDT LIPID PANEL Routine 06/04/2017 7:05 AM EDT BASIC METABOLIC PANEL Routine 06/04/2017 7:05 AM EDT APTT Routine 06/04/2017 6:11 AM EDT PROTIME-INR Routine 06/04/2017 6:11 AM EDT CBC (NO DIFF) Routine 06/04/2017 6:11 AM EDT T3, FREE Routine 06/04/2017 6:11 AM EDT HEMOGLOBIN A1C Routine 06/04/2017 6:11 AM EDT TROPONIN STAT 06/04/2017 2:18 AM EDT MAGNESIUM Add-On 06/04/2017 2:18 AM EDT CK TOTAL AND CKMB STAT 06/04/2017 2:1 8 AM EDT ECG 12-LEAD STAT 06/04/2017 1:59 AM EDT XR CHEST 1 VW STAT 06/03/2017 11:39 PM EDT POCT TROPONIN I, RAPID STAT 7 11:16 PM EDT GOLD TOP - SST STAT 06/03/2017 11:11 PM EDT DK GREEN TOP STAT 06/03/2017 11:11 PM EDT CBC WITH AUTO DIFFERENTIAL STAT 06/03/2017 11:11 PM EDT LAVENDER TOP STAT 06/03/2017 11:11 PM EDT LIGHT BLUE TOP STAT 06/03/2017 11:11 PM EDT RAINBOW DRAW STAT 06/03/2017 11:11 PM EDT D-DIMER, QUANTITATIVE STAT 06/03/2017 11:11 PM EDT CBC AND DIFFERENTIAL STAT 06/03/2017 11:11 PM EDT B-TYPE NATRIURETIC PEPTIDE STAT 06/03/2017 11:11 PM EDT LIPASE STAT 06/03/2017 11:11 PM EDT COMPREHENSIVE METABOLIC PANEL STAT 06/03/2017 11:11 PM EDT ECG 12-LEAD STAT 06/03/2017 10:51 PM EDT documented in this encounter Results * ECHO COMPLETE W/ DOPPLER AND COLOR FLOW (06/04/2017 5:18 PM EDT) BSA 1.9 m^2 EMC RAD RVIDd 2.3 cm EMC RAD IVSd 0.96 cm EMC RAD LVIDd 5.2 cm EMC RAD LVIDs 2.8 cm EMC RAD LVPWd 0.97 cm EMC RAD IVS/LVPW 0.99 EMC RAD FS 46.6 % EMC RAD EDV(Teich) 130.7 ml EMC RAD ESV(Teich) 29.3 ml EMC RAD EF(Teich) 77.6 % EMC RAD EDV(cubed) 142.2 ml EMC RAD ESV(cubed) 21.7 ml EMC RAD EF(cubed) 84.7 % EMC RAD LV mass(C)d 186.0 grams EMC RAD LV mass(C)dI 99.1 grams/m^2 EMC RAD SV(Teich) 101.4 ml EMC RAD SI(Teich) 54.0 ml/m^2 EMC RAD SV(cubed) 120.5 ml EMC RAD SI(cubed) 64.2 ml/m^2 EMC RAD Ao root diam 2.6 cm EMC RAD Ao root area 5.3 cm^2 EMC RAD LA dimension (2D) 3.5 cm EMC RAD LA/Ao 1.3 EMC RAD LVLd ap4 6.5 cm EMC RAD EDV(MOD-sp4) 72.0 ml EMC RAD LVLs ap4 5.9 cm EMC RAD ESV(MOD-sp4) 36.0 ml EMC RAD EF(MOD-sp4) 50.0 % EMC RAD LVLd ap2 6.4 cm EMC RAD EDV(MOD-sp2) 73.0 ml EMC RAD LVLs ap2 5.8 cm EMC RAD ESV(MOD-sp2) 38.0 ml EMC RAD EF(MOD-sp2) 47.9 % EMC RAD SV(MOD-sp4) 36.0 ml EMC RAD SVi(MOD-SP4) 19.2 ml/m^2 EMC RAD SV(MOD-sp2) 35.0 ml EMC RAD SVi(MOD-SP2) 18.7 ml/m^2 EMC RAD Ao root area (BSA corrected) 1.4 EMC RAD EF - Contrast (2Ch) 47.9 ml/m^2 EMC RAD EF - Contrast (4Ch) 50.0 ml/m^2 EMC RAD LV Cassidy Vol (BSA corrected) 38.4 ml/m^2 EMC RAD LV Sys Vol (BSA corrected) 19.2 ml/m^2 EMC RAD MV E max lisandro 108.0 cm/sec EMC RAD MV A max lisandro 116.0 cm/sec EMC RAD MV E/A 0.93 EMC RAD BH CV ECHO ISSAC - BZI_BMI 27.8 kilograms/ m^2 EMC RAD BH CV ECHO ISSAC - BSA([place]) 1.9 m^2 EMC RAD BH CV ECHO ISSAC - BZI_METRIC_WEIG HT 78.0 kg EMC RAD CV ECHO ISSAC - BZI_METRIC_HEIG HT 167.6 cm EMC RAD CV VAS BP RIGHT ARM 123/67 mmHg EMC RAD RV S' 17.10 cm/sec EMC RAD RV Base 3.30 cm EMC RAD RV Length 7.30 cm EMC RAD RV Mid 2.90 cm EMC RAD LA ESV (BP) 32.0 cm3 EMC RAD E/E' ratio 12.0 EMC RAD LA ESV Index (BP) 17.0 mL/m2 EMC RAD Lat Peak E' Lisandro 9.1 cm/sec EMC RAD Med Peak E' Lisandro 8.99 cm/sec EMC RAD TAPSE (>1.6) 2.20 cm2 EMC RAD Echo EF Estimated 55 % EMC RAD Anatomical Region Laterality Modality Ultrasound 06/04/2017 2:16 PM EDT Narrative 06/04/2017 5:34 PM EDT ?? Left ventricular systolic function is normal. Estimated EF = 55%. ?? The cardiac valves are anatomically and functionally normal. Left Ventricle Left ventricular systolic function is normal. Calculated EF = 50%. Estimated EF = 55%. Normal left ventricular cavity size and wall thickness noted. Right Ventricle Normal right ventricular cavity size, wall thickness and systolic function noted. Left Atrium Normal left atrial size and volume noted. Right Atrium Normal right atrial size noted. Mitral Valve The mitral valve is abnormal in structure. Mild mitral annular calcification is present. Mild mitral valve regurgitation is present. Tricuspid Valve The tricuspid valve is grossly normal. No tricuspid valve regurgitation is present. Aortic Valve The valve appears trileaflet. The aortic valve is abnormal in structure. The valve exhibits sclerosis. No significant regurgitation aortic valve regurgitation is present. Pulmonic Valve The pulmonic valve is grossly normal in structure. There is no significant pulmonic valve regurgitation present. Pericardium The pericardium is normal. There is no evidence of pericardial effusion. Additional Study Details A two-dimensional transthoracic echocardiogram with color flow and Doppler was performed. Contrast was not used for this study. Declined Lumason, stated she is allergic to Sulpha and Sulpher. Greater Vessels No dilation of the aortic root is present. Ara Salmon APRN CV ECHO ORDERABLES Tanvi l Result * Urinalysis With / Culture If Indicated (06/04/2017 11:06 AM EDT) Color, UA Yellow Yellow, Straw 06/04/2017 11:29 AM EDT [facility] Appearance, UA Clear Clear 06/04/2017 11:29 AM EDT [facility] pH, UA 6.0 5.0 - 8.0 06/04/2017 11:29 AM EDT [facility] Specific [place], UA 1.008 1.001 - 1.030 06/04/2017 11:29 AM EDT [facility] Glucose, UA Negative Negative 06/04/2017 11:29 AM EDT [facility] Ketones, UA Negative Negative 06/04/2017 11:29 AM EDT [facility] Bilirubin, UA Negative Negative 06/04/2017 11:29 AM EDT [facility] Blood, UA Negative Negative 06/04/2017 11:29 AM EDT [facility] Protein, UA Negative Negative 06/04/2017 11:29 AM EDT [facility] Leuk Esterase, UA Negative Negative 06/04/2017 11:29 AM EDT [facility] Nitrite, UA Negative Negative 06/04/2017 11:29 AM EDT [facility] Urobilinogen, UA 0.2 E.U./dL 0.2 - 1.0 E.U./dL 06/04/2017 11:29 AM EDT [facility] Urine Urine specimen collection, clean catch / Unknown Collection / Unknown 06/04/2017 11:06 AM EDT 06/04/2017 11:23 AM EDT Narrative [facility] - 06/04/2017 11:29 AM EDT Urine microscopic not indicated. Ara Salmon APRN URINE ORDERABLES Final Result Performing Organization Address City/[facility]/ZIP Co de Phone Number [facility]
[address] [place] [address], * T4, Free (06/04/2017 7:05 AM EDT) Free T4 1.13 0.89 - 1.76 ng/dL 06/04/2017 7:50 AM EDT [facility] Blood 06/04/2017 7:05 AM EDT 06/04/2017 7:14 AM EDT Ara Salmon APRN LAB BLOOD ORDERABLES Fi nal Result [facility]
[address] [place] [address], * TSH (06/04/2017 7:05 AM EDT) TSH 0.940 0.350 - 5.350 mIU/mL 06/04/2017 7:50 AM EDT [facility] Blood 06/04/2017 7:05 AM EDT 06/04/2017 7:14 AM EDT Ara Salmon CARTRIDGE LOADING OPERATOR LAB BLOOD ORDERABLES Fi nal Result [facility]
[address] [place] [address], * (ABNORMAL) Basic Metabolic Panel (06/04/2017 7:05 AM EDT) Glucose 104(H) 70 - 100 mg/dL 06/04/2017 7:50 AM EDT [facility] BUN 13 9 - 23 mg/dL 06/04/2017 7:50 AM EDT [facility] Creatinine 0.70 0.60 - 1.30 mg/dL 06/04/2017 7:50 AM EDT [facility] Sodium 136 132 - 146 mmol/L 06/04/2017 7:50 AM EDT [facility] Potassium 3.9 3.5 - 5.5 mmol/L 06/04/2017 7:50 AM EDT [facility] Chloride 100 99 - 109 mmol/L 06/04/2017 7:50 AM EDT [facility] CO2 29.0 20.0 - 31.0 mmol/L 06/04/2017 7:50 AM EDT [facility] Calcium 9.9 8.7 - 10.4 mg/dL 06/04/2017 7:50 AM EDT [facility] eGFR Non Amer 83 >60 mL/min/1.7 3 06/04/2017 7:50 AM EDT [facility] BUN/Creatinine Ratio 18.6 7.0 - 25.0 06/04/2017 7:50 AM EDT [facility] Anion Gap 7.0 3.0 - 11.0 mmol/L 06/04/2017 7:50 AM EDT [facility] Blood 06/04/2017 7:05 AM EDT 06/04/2017 7:14 AM EDT [facility] - 06/04/2017 7:50 AM EDT National [employer] Guidelines Stage ? Description ?GFR 1 ? Normal or High ? 90+ 2 ? Mild decrease ?60-89 3 ? Moderate decrease ??30-59 4 ? Severe decrease ?15-29 5 ? Kidney failure ? <15 Ara Salmon CARTRIDGE LOADING OPERATOR LAB BLOOD ORDERABLES Fi nal Result Performing Organization Address [facility] de Phone Number [facility]
[address] [place] [address], * Troponin (06/04/2017 7:05 AM EDT) Pathologist [facility] Troponin I 0.017 <=0.039 ng/mL 06/04/2017 7:50 AM EDT [facility] Blood 06/04/2017 7:05 AM EDT 06/04/2017 7:14 AM EDT [facility] - 06/04/2017 7:50 AM EDT Ultra Troponin I Reference Range: <=0.039 ng/mL: Negative 0.04-0.779 ng/mL: Indeterminate Range. Clinical correlation required. >=0.78 ??ng/mL: Consistent with myocardial injury. Clinical correlation required. Ara Salmon CARTRIDGE LOADING OPERATOR LAB BLOOD ORDERABLES Fi nal Result Performing Organization Address [facility] de Phone Number [facility]
[address] [place] [address], * Lipid Panel (06/04/2017 7:05 AM EDT) Pathologist [facility] Total Cholesterol 137 0 - 200 mg/dL 06/04/2017 7:50 AM EDT [facility] Triglycerides 54 0 - 150 mg/dL 06/04/2017 7:50 AM EDT [facility] HDL Cholesterol 52 40 - 60 mg/dL 06/04/2017 7:50 AM EDT [facility] LDL Cholesterol 75 0 - 130 mg/dL 06/04/2017 7:50 AM EDT [facility] Blood 06/04/2017 7:05 AM EDT 06/04/2017 7:14 AM EDT [facility] - 06/04/2017 7:50 AM EDT Cholesterol Reference Ranges: Desirable ? < 200 mg/dL Borderline ?200-239 mg/dL High Risk ? > 239 mg/dL Triglyceride Reference Ranges: Normal ?< 150 mg/dL Borderline ?150-199 mg/dL High ?200-499 mg/dL Very High ? > 499 mg/dL HDL Reference Ranges: Low ?< 40 mg/dL High ? > 59 mg/dL LDL Reference Ranges: Optimal ? < 100 mg/dL Near Optimal ??100-129 mg/dL Borderline ?130-159 mg/dL High ?160-189 mg/dL Very High ? > 189 mg/dL us Ara Salmon CARTRIDGE LOADING OPERATOR LAB BLOOD ORDERABLES Fi nal Result [facility]
[address] [id number], * T3, Free (06/04/2017 6:11 AM EDT) T3, Free 3.2 2.0 - 4.4 pg/mL 06/05/2017 8:23 AM EDT [facility] Blood 06/04/2017 6:11 AM EDT 06/04/2017 6:17 AM EDT Narrative [facility] - 06/05/2017 8:23 AM EDT Performed at: ??01 - [facility] [address] [facility], [place], [place] ??[id number] Rare/Endangered Species Specialist: Arun Tenorio PhD, Phone: ??[phone] Ara Salmon CARTRIDGE LOADING OPERATOR LAB BLOOD ORDERABLES Fi nal Result [facility] [address] [place] [address], * CBC (No Diff) (06/04/2017 6:11 AM EDT) WBC 9.33 3.50 - 10.80 10*3/mm3 06/04/2017 6:46 AM EDT [facility] RBC 4.69 3.89 - 5.14 10*6/mm3 06/04/2017 6:46 AM EDT [facility] Hemoglobin 13.6 11.5 - 15.5 g/dL 06/04/2017 6:46 AM EDT [facility] Hematocrit 40.8 34.5 - 44.0 % 06/04/2017 6:46 AM EDT [facility] MCV 87.0 80.0 - 99.0 fL 06/04/2017 6:46 AM EDT [facility] MCH 29.0 27.0 - 31.0 pg 06/04/2017 6:46 AM EDT [facility] MCHC 33.3 32.0 - 36.0 g/dL 06/04/2017 6:46 AM EDT [facility] RDW 12.4 11.3 - 14.5 % 06/04/2017 6:46 AM EDT [facility] RDW-SD 39.7 37.0 - 54.0 fl 06/04/2017 6:46 AM EDT [facility] MPV 9.7 6.0 - 12.0 fL 06/04/2017 6:46 AM EDT [facility] Platelets 329 150 - 450 10*3/mm3 06/04/2017 6:46 AM EDT [facility] Blood 06/04/2017 6:11 AM EDT 06/04/2017 6:17 AM EDT Ara Salmon CARTRIDGE LOADING OPERATOR LAB BLOOD ORDERABLES Fi nal Result Performing Organization Address [facility] Co de Phone Number [facility]
[address] [place] [address], * aPTT (06/04/2017 6:11 AM EDT) PTT 27.9 24.0 - 31.0 seconds 06/04/2017 6:55 AM EDT [facility] Blood 06/04/2017 6:11 AM EDT 06/04/2017 6:17 AM EDT [facility] - 06/04/2017 6:55 AM EDT PTT = The equivalent PTT values for the therapeutic range of heparin levels at 0.3 to 0.5 U/ml are 45 to 60 seconds. Ara Salmon APRN LAB BLOOD ORDERABLES Fi nal Result Performing Organization Address [facility] de Phone Number [facility]
[address] [place] [address], * Protime-INR (06/04/2017 6:11 AM EDT) Protime 10.7 9.6 - 11.5 Seconds 06/04/2017 6:55 AM EDT [facility] INR 0.98 06/04/2017 6:55 AM EDT [facility] Blood 06/04/2017 6:11 AM EDT 06/04/2017 6:17 AM EDT Narrative [facility] - 06/04/2017 6:55 AM EDT Therapeutic Ranges for INR: 2.0-3.0 (PT 20-30) ?2.5-3.5 (PT 25-34) Ara Salmon CARTRIDGE LOADING OPERATOR LAB BLOOD ORDERABLES Fi nal Result Performing Organization Address [facility] de Phone Number [facility]
[address] [place] [address], * (ABNORMAL) Hemoglobin A1c (06/04/2017 6:11 AM EDT) Hemoglobin A1C 6.00(H) 4.80 - 5.60 % 06/04/2017 8:06 AM EDT [facility] Blood 06/04/2017 6:11 AM EDT 06/04/2017 6:17 AM EDT Narrative [facility] - 06/04/2017 8:06 AM EDT The [place] [employer] recommends maintenance of Hemoglobin A1C at 7.0% or lower. Goals for Hemoglobin A1C reduction may need to be modified if hypoglycemia is a problem. Ara Salmon APRN LAB BLOOD ORDERABLES Fi nal Result Performing Organization Address [facility] de Phone Number [facility]
[address] [place] [address], * Magnesium (06/04/2017 2:18 AM EDT) Magnesium 1.8 1.3 - 2.7 mg/dL 06/04/2017 3:51 AM EDT [facility] Blood 06/04/2017 2:18 AM EDT 06/04/2017 2:27 AM EDT Ara Salmon CARTRIDGE LOADING OPERATOR LAB BLOOD ORDERABLES Fi nal Result Performing Organization Address [facility] Co de Phone Number [facility]
[address] [place] [address], * CK Total & CKMB (06/04/2017 2:18 AM EDT) CKMB <0.20 0.00 - 5.00 ng/mL 06/04/2017 3:03 AM EDT [facility] Creatine Kinase 75 26 - 174 U/L 06/04/2017 3:03 AM EDT [facility] Blood 06/04/2017 2:18 AM EDT 06/04/2017 2:27 AM EDT Ara Lindsay [facility] BLOOD ORDERABLES Fi nal Result Performing Organization Address City/[facility] Co de Phone Number [facility]
[address] [place] [address], * Troponin (06/04/2017 2:18 AM EDT) Troponin I 0.007 <=0.039 ng/mL 06/04/2017 3:03 AM EDT [facility] Blood 06/04/2017 2:18 AM EDT 06/04/2017 2:27 AM EDT Narrative [facility] - 06/04/2017 3:03 AM EDT Ultra Troponin I Reference Range: <=0.039 ng/mL: Negative 0.04-0.779 ng/mL: Indeterminate Range. Clinical correlation required. >=0.78 ??ng/mL: Consistent with myocardial injury. Clinical correlation required. [facility] LAB BLOOD ORDERABLES Fi nal Result [facility]
[address] [place] [address], * ECG 12 Lead (06/04/2017 1:59 AM EDT) 06/04/2017 1:59 AM EDT 06/04/2017 9:27 PM EDT Narrative ECG - 06/04/2017 9:27 PM EDT Test Reason : chest pain Blood Pressure : / mmHG Vent. Rate : 067 BPM ? Atrial Rate : 067 BPM ?? P-R Int : 170 ms ?QRS Dur : 084 ms ?QT Int : 438 ms ? P-R-T Axes : 021 027 035 degrees ?? QTc Int : 462 ms Normal sinus rhythm Low voltage QRS Cannot rule out Anterior infarct , age undetermined Abnormal ECG When compared with ECG of 03-JUN-2017 22:51, (Unconfirmed) No significant change was found Confirmed by MD BLANKENSHIP CORY ([id number]) on 06/04/2017 9:27:17 PM Referred By: ??VIKY ? Confirmed By:LUIS BLANKENSHIP MD Procedure Note Luis Blankenship DO - 06/04/2017 Test Reason : chest pain Blood Pressure : / mmHG Vent. Rate : 067 BPM Atrial Rate : 067 BPM P-R Int : 170 ms QRS Dur : 084 ms QT Int : 438 ms P-R-T Axes : 021 027 035 degrees QTc Int : 462 ms Normal sinus rhythm Low voltage QRS Cannot rule out Anterior infarct , age undetermined Abnormal ECG When compared with ECG of 03-JUN-2017 22:51, (Unconfirmed) No significant change was found Confirmed by MD BLANKENSHIP CORY ([id number]) on 06/04/2017 9:27:17 PM Referred By: VIKY Confirmed By:LUIS BLANKENSHIP MD us Ara Salmon CARTRIDGE LOADING OPERATOR ECG ORDERABLES Final R esult ECG * (ABNORMAL) XR Chest 1 View (06/03/2017 11:39 PM EDT) Anatomical Region Laterality Modality Body N/A Radiographic Bonnie ging 06/03/2017 10:5 0 PM EDT Impressions 06/04/2017 12:13 AM EDT ??No acute pulmonary process is demonstrated. THIS DOCUMENT HAS BEEN ELECTRONICALLY SIGNED BY RANDELL MUNOZ MD Narrative 06/04/2017 12:13 AM EDT EXAM: ??XR Chest, 1 View CLINICAL HISTORY: ??71 years old, female; Pain; Chest pain; Type not specified; Additional info: Chest pain triage protocol TECHNIQUE: ??Frontal view of the chest. EXAM DATE/TIME: ??06/03/2017 10:50 PM COMPARISON: ??09/27/10 FINDINGS: ??No focal pulmonary consolidation is demonstrated. ??No significant obscuration of the lateral costophrenic angles is demonstrated. ??No significant vascular congestion is demonstrated. ??Visualized cardiac silhouette size appears within normal limits. ?? Procedure Note Randell Munoz MD - 06/04/2017 EXAM: XR Chest, 1 View CLINICAL HISTORY: 71 years old, female; Pain; Chest pain; Type not specified; Additionalinfo: Chest pain triage protocol TECHNIQUE: Frontal view of the chest. EXAM DATE/TIME: 06/03/2017 10:50 PM COMPARISON: 09/27/10 FINDINGS: No focal pulmonary consolidation is demonstrated. No significant obscuration of the lateral costophrenic angles isdemonstrated. No significant vascular congestion is demonstrated. Visualized cardiac silhouette size appears within normal limits. IMPRESSION: No acute pulmonary process is demonstrated. THIS DOCUMENT HAS BEEN ELECTRONICALLY SIGNED BY RANDELL MUNOZ MD us Luis [place] DO IMG DIAGNOSTIC IMAGING ORDERABLE S Final Result * POC Troponin, Rapid (06/03/2017 11:16 PM EDT) Troponin I 0.02 0.00 - 0.07 ng/mL 06/03/2017 11:30 PM EDT [facility] Comment:Serial Number: [id number] Blood 06/03/2017 11:1 6 PM EDT 06/03/2017 11:30 PM EDT us Luis [place] DO POINT OF CARE TEST ORDERABLES Fi nal Result [facility]
[address] [place] [address], [place] [phone] * D-dimer, Quantitative (06/03/2017 11:11 PM EDT) Pathologist [facility] D-Dimer, Quantitative 0.24 0.00 - 0.50 mg/L (FEU) 06/04/2017 2:39 AM EDT [facility] Blood Venipuncture / Unknown 06/03/2017 11:11 PM EDT 06/03/2017 11:17 PM EDT Narrative [facility] - 06/04/2017 2:39 AM EDT Negative predictive value for exclusion of venous thromboembolism: < or = 0.5 mg/L (FEU) Ara Salmon APRN LAB BLOOD ORDERABLES Fi nal Result [facility]
[address] [place] [address], * (ABNORMAL) CBC Auto Differential (06/03/2017 11:11 PM EDT) [facility] WBC 10.61 3.50 - 10.80 10*3/mm3 06/03/2017 11:22 PM EDT [facility] RBC 4.54 3.89 - 5.14 10*6/mm3 06/03/2017 11:22 PM EDT [facility] Hemoglobin 13.5 11.5 - 15.5 g/dL 06/03/2017 11:22 PM EDT [facility] Hematocrit 39.2 34.5 - 44.0 % 06/03/2017 11:22 PM EDT [facility] MCV 86.3 80.0 - 99.0 fL 06/03/2017 11:22 PM EDT [facility] MCH 29.7 27.0 - 31.0 pg 06/03/2017 11:22 PM EDT [facility] MCHC 34.4 32.0 - 36.0 g/dL 06/03/2017 11:22 PM EDT [facility] RDW 12.4 11.3 - 14.5 % 06/03/2017 11:22 PM [facility] RDW-SD 39.3 37.0 - 54.0 fl 06/03[facility]2017 11:[facility] MPV 9.6 6.0 - 12.0 fL 06/03/2017 11:22 [facility] Platelets 341 150 - 450 10*3/mm3 06/03/2017 11:22 PM [facility] Neutrophil % 65.2 41.0 - 71.0 % 06/03/2017 11:22 [facility] Lymphocyte % 22.7(L) 24.0 - 44.0 % 06/03/2017 11:22 PM [facility] Monocyte % 10.1 0.0 - 12.0 % 06/03/2017 11:22 PM [facility] Eosinophil % 1.5 0.0 - 3.0 % 06/03/2017 11:22 [facility] Basophil % 0.3 0.0 - 1.0 % 06/03/2017 11:22 PM [facility] Immature Grans % 0.2 0.0 - 0.6 % 06/03/2017 11:22 [facility] Neutrophils, Absolute 6.92 1.50 - 8.30 10*3/mm3 06/03/2017 11:22 PM [facility] Lymphocytes, Absolute 2.41 0.60 - 4.80 10*3/mm3 06/03/2017 11:22 [facility] Monocytes, Absolute 1.07(H) 0.00 - 1.00 10*3/mm3 06/03/2017 11:22 [facility] Eosinophils, Absolute 0.16 0.00 - 0.30 10*3/mm3 06/03/2017 11:22 [facility] Basophils, Absolute 0.03 0.00 - 0.20 10*3/mm3 06/03/2017 11:22 [facility] Immature Grans, Absolute 0.02 0.00 - 0.03 10*3/mm3 06/03/2017 11:22 PM EDT [facility] Blood Venipuncture / Unknown 06/03/2017 11:11 PM EDT 06/03/2017 11:17 PM EDT us Luis [place] DO LAB BLOOD ORDERABLES Final Resul t Performing Organization Address City/[facility]/ZIP Co de Phone Number [facility]
[address] [place] [address], * Gold Top - SST (06/03/2017 11:11 PM EDT) Extra Tube Hold for add-ons. 06/04/2017 1:01 AM EDT [facility] Comment:Auto resulted. Blood Venipuncture / Unknown 06/03/2017 11:11 PM EDT 06/03/2017 11:17 PM EDT us Luis [place] DO LAB BLOOD ORDER ONLY Final Resul t Performing Organization Address [facility] Co de Phone Number [facility]
[address] [place] [address], [place] [phone] * Lavender Top (06/03/2017 11:11 PM EDT) Extra Tube hold for add-on 06/04/2017 1:01 AM EDT [facility] Comment:Auto resulted Blood Venipuncture / Unknown 06/03/2017 11:11 PM EDT 06/03/2017 11:17 PM EDT us Luis [place] DO LAB BLOOD ORDER ONLY Final Resul t Performing Organization Address City/[facility] Co de Phone Number [facility]
[address] [place] [address], [place] [phone] * Green Top (Gel) (06/03/2017 11:11 PM EDT) Extra Tube Hold for add-ons. 06/04/2017 1:01 AM EDT [facility] Comment:Auto resulted. Blood Venipuncture / Unknown 06/03/2017 11:11 PM EDT 06/03/2017 11:17 PM EDT us Luis [place] DO LAB BLOOD ORDER ONLY Final Resul t Performing Organization Address City/[facility] Co de Phone Number [facility]
[address] [place] [address], * Light Blue Top (06/03/2017 11:11 PM EDT) Extra Tube hold for add-on 06/04/2017 1:01 AM EDT [facility] Comment:Auto resulted Blood Venipuncture / Unknown 06/03/2017 11:11 PM EDT 06/03/2017 11:17 PM EDT us Luis [place] DO LAB BLOOD ORDER ONLY Final Resul t Performing Organization Address [facility] de Phone Number [facility]
[address] [place] [address], * BNP (06/03/2017 11:11 PM EDT) BNP 15.0 0.0 - 100.0 pg/mL 06/03/2017 11:50 PM EDT [facility] Blood Venipuncture / Unknown 06/03/2017 11:11 PM EDT 06/03/2017 11:17 PM EDT us Luis [place] DO LAB BLOOD ORDERABLES Final Resul t Performing Organization Address [facility] de Phone Number [facility]
[address] [place] [address], [place] [phone] * (ABNORMAL) Lipase (06/03/2017 11:11 PM EDT) Lipase 53(H) 6 - 51 U/L 06/03/2017 11:48 PM EDT [facility] Blood Venipuncture / Unknown 06/03/2017 11:11 PM EDT 06/03/2017 11:17 PM EDT us Luis [place] DO LAB BLOOD ORDERABLES Final Resul t [facility]
[address] [place] [address], * (ABNORMAL) Comprehensive Metabolic Panel (06/03/2017 11:11 PM EDT) Glucose 134(H) 70 - 100 mg/dL 06/03/2017 11:48 PM EDT [facility] BUN 14 9 - 23 mg/dL 06/03/2017 11:48 PM EDT [facility] Creatinine 0.90 0.60 - 1.30 mg/dL 06/03/2017 11:48 PM EDT [facility] Sodium 134 132 - 146 mmol/L 06/03/2017 11:48 PM EDT [facility] Potassium 4.1 3.5 - 5.5 mmol/L 06/03/2017 11:48 PM EDT [facility] Chloride 99 99 - 109 mmol/L 06/03/2017 11:48 PM EDT [facility] CO2 24.0 20.0 - 31.0 mmol/L 06/03/2017 11:48 PM EDT [facility] Calcium 10.2 8.7 - 10.4 mg/dL 06/03/2017 11:48 PM EDT [facility] Total Protein 8.0 5.7 - 8.2 g/dL 06/03/2017 11:48 PM EDT [facility] Albumin 4.60 3.20 - 4.80 g/dL 06/03/2017 11:48 PM EDT [facility] ALT (SGPT) 23 7 - 40 U/L 06/03/2017 11:48 PM EDT [facility] AST (SGOT) 35(H) 0 - 33 U/L 06/03/2017 11:48 PM EDT [facility] Alkaline Phosphatase 99 25 - 100 U/L 06/03/2017 11:48 PM EDT [facility] Total Bilirubin 0.5 0.3 - 1.2 mg/dL 06/03/2017 11:48 PM EDT [facility] eGFR Non Amer 62 >60 mL/min/1.7 3 06/03/2017 11:48 PM EDT [facility] Globulin 3.4 gm/dL 06/03/2017 11:48 PM EDT [facility] A/G Ratio 1.4(L) 1.5 - 2.5 g/dL 06/03/2017 11:48 PM EDT [facility] BUN/Creatinine Ratio 15.6 7.0 - 25.0 06/03/2017 11:48 PM EDT [facility] Anion Gap 11.0 3.0 - 11.0 mmol/L 06/03/2017 11:48 PM EDT [facility] Blood Venipuncture / Unknown 06/03/2017 11:11 PM EDT 06/03/2017 11:17 PM EDT [facility] - 06/03/2017 11:48 PM EDT [employer] Guidelines Stage ? Description ?GFR 1 ? Normal or High ? 90+ 2 ? Mild decrease ?60-89 3 ? Moderate decrease ??30-59 4 ? Severe decrease ?15-29 5 ? Kidney failure ? <15 us Luis Blankens[place] DO LAB BLOOD ORDERABLES Final Resul t [facility]
[address] [place] [address], * ECG 12 Lead (06/03/2017 10:51 PM EDT) 06/03/2017 10:5 1 PM EDT 06/04/2017 9:19 PM EDT Narrative ECG - 06/04/2017 9:20 PM EDT Test Reason : cp Blood Pressure : / mmHG Vent. Rate : 083 BPM ? Atrial Rate : 083 BPM ?? P-R Int : 146 ms ?QRS Dur : 080 ms ?QT Int : 384 ms ? P-R-T Axes : 052 010 049 degrees ?? QTc Int : 451 ms Normal sinus rhythm Low voltage QRS Borderline ECG When compared with ECG of 26-OCT-2016 10:42, Non-specific change in ST segment in Lateral leads Nonspecific T wave abnormality, improved in Lateral leads Confirmed by MD BLANKENSHIP CORY ([id number]) on 06/04/2017 9:19:58 PM Referred By: ??ED MD ? Confirmed By:LUIS BLANKENSHIP MD Procedure Note Luis Blankenship DO - 06/04/2017 Test Reason : cp Blood Pressure : / mmHG Vent. Rate : 083 BPM Atrial Rate : 083 BPM P-R Int : 146 ms QRS Dur : 080 ms QT Int : 384 ms P-R-T Axes : 052 010 049 degrees QTc Int : 451 ms Normal sinus rhythm Low voltage QRS Borderline ECG When compared with ECG of 26-OCT-2016 10:42, Non-specific change in ST segment in Lateral leads Nonspecific T wave abnormality, improved in Lateral leads Confirmed by MD BLANKENSHIP CORY ([id number]) on 06/04/2017 9:19:58 PM Referred By: ED MD Confirmed By:LUIS BLANKENSHIP MD us Luis Blank[place] DO ECG ORDERABLES Final Result ECG documented in this encounter Visit Diagnoses Diagnosis Chest pain, unspecified type Mild intermittent asthma without complication Chest pain Unspecified chest pain History of Takotsubo cardiomyopathy Takotsubo syndrome Coronary artery disease, history of NSTEMI Coronary atherosclerosis of unspecified type of vessel, bridgeport or graft DONNA (obstructive sleep apnea) Obstructive sleep apnea (adult) (pediatric) Hypertension Unspecified essential hypertension documented in this encounter Administered Medications Inactive Administered Medications - up to 3 most recent administrations Medication Order MAR Action Action Date Dose Rate Site albuterol (PROVENTIL) nebulizer solution 0.083% 2.5 mg/3mL 2.5 mg, Nebulization, Every 4 Hours PRN, Wheezing, Shortness of Air, Starting on Wed06/04/17 at 0314Indications:Mild intermittent asthma without complication aspirin chewable tablet 324 mg 324 mg, Oral, Once, On [place] 06/03/17 at 2252, For 1 dose, Herbal/drug interaction: Avoid use with ginkgo biloba., Indications: Chest pain protocolIndications:Karlene st pain protocol Given 06/03/2017 10:57 PM EDT 324 mg aspirin EC tablet 81 mg 81 mg, Oral, Daily, First dose on Wed06/04/17 at 0900 Given 06/04/2017 10:01 AM EDT 81 mg clopidogrel (PLAVIX) tablet 75 mg 75 mg, Oral, Daily, First dose on Wed06/04/17 at 0900 Given 06/04/2017 10:00 AM EDT 75 mg heparin (porcine) 5000 UNIT/ML injection 5,000 Units 5,000 Units, Subcutaneous, Every 12 Hours Scheduled, First dose on Wed06/04/17 at 0900 Given 06/04/2017 10:00 AM EDT 5,000 Units Right Lower Abdomen LORazepam (ATIVAN) injection 0.5 mg 0.5 mg, Intravenous, Every 15 Minutes PRN, Anxiety, Starting on Wed06/03/17 at 2332, For 2 doses Given 06/03/2017 11:59 PM EDT 0.5 mg losartan (COZAAR) tablet 50 mg 50 mg, Oral, Every 24 Hours Scheduled, First dose on Wed06/04/17 at 0900 Given 06/04/2017 10:01 AM EDT 50 mg pantoprazole (PROTONIX) EC tablet 40 mg 40 mg, Oral, Every Chemical Engraver, First dose on Wed06/04/17 at 0600, Swallow whole; do not crush, split, or chew. Given 06/04/2017 5:56 AM EDT 40 mg Pharmacy Meds to Bed Consult Daily (Wednesday-Wednesday), First dose on Wed06/07/17 at 0900, Until Discontinued sodium chloride 0.9 % flush 10 mL 10 mL, Intravenous, As Needed, Line Care, Starting on [place]upe 06/03/17 at 2249 documented in this encounter Active and Recently Administered Medications Times are shown in EDT. Scheduled Medication Order 06/02/2017 06/03/2017 06/04/2017 aspirin chewable tablet 324 mg (COMPLETED) 324 mg, Oral, Once, On [place] 06/03/17 at 2252, For 1 dose, Herbal/drug interaction: Avoid use with ginkgo biloba., Indications: Chest pain protocol 2257 (Given - Provider: Mirtha Carmona RN) aspirin EC tablet 81 mg 81 mg, Oral, Daily, First dose on Wed06/04/17 at 0900 1001 (Given - Provid er: Court Del Rio RN) atorvastatin (LIPITOR) tablet 20 mg 20 mg, Oral, Nightly, First dose on Wed06/04/17 at 2100, Avoid grapefruit juice. carvedilol (COREG) tablet 3.125 mg 3.125 mg, Oral, Every 12 Hours Scheduled, First dose on Wed06/04/17 at 0314, Hold for SBP<110 or HR<60. Give with food. 0433 (Not Given - Provider: Mirtha Carmona RN - Reason: Contraindicated) clopidogrel (PLAVIX) tablet 75 mg 75 mg, Oral, Daily, First dose on Wed06/04/17 at 0900 1000 (Given - Provid er: Court Del Rio RN) heparin (porcine) 5000 UNIT/ML injection 5,000 Units 5,000 Units, Subcutaneous, Every 12 Hours Scheduled, First dose on Wed06/04/17 at 0900 1000 (Given - Provid er: Court Del Rio RN) losartan (COZAAR) tablet 50 mg 50 mg, Oral, Every 24 Hours Scheduled, First dose on Wed06/04/17 at 0900 1001 (Given - Provid er: Court Del Rio RN) pantoprazole (PROTONIX) EC tablet 40 mg 40 mg, Oral, Every Chemical Engraver, First dose on Wed06/04/17 at 0600, Swallow whole; do not crush, split, or chew. 0556 (Given - Provid er: Mirtha Carmona RN) Pharmacy Meds to Bed Consult Daily (Wednesday-Wednesday), First dose on Wed06/07/17 at 0900, Until Discontinued PRN Medication Order 06/02/2017 06/03/2017 06/04/2017 acetaminophen (TYLENOL) tablet 650 mg 650 mg, Oral, Every 4 Hours PRN, Mild Pain, Starting on Wed06/04/17 at 0311, Do not exceed 4 grams of acetaminophen in a 24 hr period. albuterol (PROVENTIL) nebulizer solution 0.083% 2.5 mg/3mL 2.5 mg, Nebulization, Every 4 Hours PRN, Wheezing, Shortness of Air, Starting on Wed06/04/17 at 0314 ALPRAZolam (XANAX) tablet 0.25 mg 0.25 mg, Oral, Nightly PRN, Anxiety, Starting on Wed06/04/17 at 0312, Avoid grapefruit juice bisacodyl (DULCOLAX) EC tablet 5 mg 5 mg, Oral, Daily PRN, Constipation, Starting on Wed06/04/17 at 0311, Swallow whole. Do not crush, split, or chew tablet. docusate sodium (COLACE) capsule 100 mg 100 mg, Oral, 2 Times Daily PRN, Constipation, Starting on Wed06/04/17 at 0311, Swallow whole. Do not open, crush, or chew capsule. famotidine (PEPCID) tablet 20 mg 20 mg, Oral, 2 Times Daily PRN, Indigestion, Heartburn, Starting on Wed06/04/17 at 0311 LORazepam (ATIVAN) injection 0.5 mg 0.5 mg, Intravenous, Every 15 Minutes PRN, Anxiety, Starting on Wed06/03/17 at 2332, For 2 doses 2359 (Given - Provider: Mirtha Carmona, JAYME) melatonin sublingual tablet 5 mg 5 mg, Sublingual, Nightly PRN, sleep, Starting on Wed06/04/17 at 0311 ondansetron (ZOFRAN) injection 4 mg 4 mg, Intravenous, Every 6 Hours PRN, Nausea, Vomiting, Starting on Wed06/04/17 at 0311, If BOTH ondansetron (ZOFRAN) and promethazine (PHENERGAN) are ordered use ondansetron first and THEN promethazine IF ondansetron is ineffective. sodium chloride 0.9 % flush 1-10 mL 1-10 mL, Intravenous, As Needed, Line Care, Starting on Wed06/04/17 at 0311 sodium chloride 0.9 % flush 10 mL 10 mL, Intravenous, As Needed, Line Care, Starting on [place] 06/03/17 at 2249 documented in this encounter Care Teams Flipping Machine Operator Relationship Specialty Start Date End Date Davis Foote MD [address] [place] [address] PCP - General 09/18/15 07/21/22 documented as of this encounter
--- OUTSIDE RECORDS SUMMARY | 2024-10-02 13:12 | XMS_ITS | Encounter Summary ---
Author Organization [facility] Address [address] [place] [address] Care Team Providers Care Airplane Flight Attendant Supervisor Name Role Phone Davis Foote MD Primary Care Provider [phone] Reason for Referral * Diagnostic Imaging (Routine) - Closed Specialty Diagnoses / Procedures Referred By Fabrice almeida Referred To Contact Diagnoses Paresthesia Dizziness Procedures Duplex Carotid Ultrasound Davis Villarreal MD [address] [place] [address] [place] [address] Phone: tel: fax: [place] [phone] Phone: tel: Referral ID Status Reason Start Date Expiration Date Visits Re quested Visits Authorized [id number] Closed 08/23/2017 08/23/2018 1 1 Reason for Visit * Diagnostic Imaging (Routine) - Closed Specialty Diagnoses / Procedures Referred By Contac t Referred To Contact Diagnoses Paresthesia Dizziness Procedures Duplex Carotid Ultrasound Davis Villarreal MD [address] [place] [address] [place] [address] Phone: tel: fax: [place] [phone] Phone: tel: Referral ID Status Reason Start Date Expiration Date Visits Re quested Visits Authorized [id number] Closed 08/23/2017 08/23/2018 1 1 Encounter Details Date Type Department Care Team (Latest Contact Info) Description 08/30/2017 12:46 PM EDT - 08/30/2017 11:59 PM EDT Hospital Encounter [facility] [address] [place] [address] Davis Foote MD [address] [place] [address] [place] [address] Paresthesia; Dizziness Discharge Disposition: Home or Self Care Social [...] mouth Daily. 90 tablet 3 07/07/2017 0 losartan-hydrochloro thiazide (HYZAAR) 50-12.5 MG per tabletIndications:Es [...] 8 pravastatin (PRAVACHOL) 80 MG tablet Take 1 tablet by mouth Every Night. 90 tablet 3 07/07/2017 8 zolpidem (AMBIEN) 10 MG tablet Take 5 mg by mouth At Night As Needed for sleep. documented as of this encounter Plan of Treatment Upcoming Encounters Date Type Department Care Team (Late st Contact Info) Description 12/22/2024 9:50 AM EST Office Visit [facility] [address] [facility] [address] [place] [address] Go Zazueta MD [address] [facility] [address] [place], [place] [id number] 01/15/2025 9:45 AM EDT Office Visit [facility] [address] [facility] [address] [place] [address] Joy Skinner APRN [address] [facility] [address] [place], [place] [id number] documented as of this encounter Procedures Procedure Name Priority Date/Time Associated Diagnosis Comments DUPLEX CAROTID BILATERAL CAR Routine 08/30/2017 1:13 PM EDT Paresthesia Dizziness documented in this encounter Results * Duplex Carotid Ultrasound CAR (08/30/2017 1:13 PM EDT) BSA 1.9 m^2 [facility] Prox CCA PSV 77.0 cm/sec [facility] RAD Prox CCA PSV 68.5 cm/sec [facility] RAD Prox CCA EDV 22.0 cm/sec [facility] RAD Prox CCA EDV 22.0 cm/sec [facility] RAD Dist CCA PSV 73.9 cm/sec [facility] RAD Dist CCA PSV 69.1 cm/sec [facility] RAD Dist CCA EDV 21.2 cm/sec [facility] RAD Dist CCA EDV 23.9 cm/sec [facility] RAD CCA ratio forrest 73.1 cm/sec [facility] RAD CCA ratio forrest 68.5 cm/sec E[facility] RAD Prox ECA PSV 66.8 cm/sec [facility] RAD Prox ECA PSV 71.7 cm/sec [facility] RAD Prox ICA PSV 41.9 cm/sec [facility] RAD Prox ICA PSV 68.5 cm/sec [facility] RAD Prox ICA EDV 14.3 cm/sec [facility] RAD Prox ICA EDV 25.1 cm/sec E[facility] RAD Mid ICA PSV 80.0 cm/sec [facility] RAD Mid ICA PSV 80.5 cm/sec [facility] RAD Mid ICA EDV 29.2 cm/sec [facility] RAD Mid ICA EDV 31.4 cm/sec [facility] RAD Dist ICA PSV 71.7 cm/sec [facility] RAD Dist ICA PSV 94.3 cm/sec [facility] RAD Dist ICA EDV 27.0 cm/sec E[facility] RAD Dist ICA EDV 30.2 cm/sec E[facility] RAD ICA ratio forrest 79.4 cm/sec E[facility] RAD ICA ratio forrest 79.8 cm/sec [facility] RAD Vertebral A PSV 38.0 cm/sec [facility] RAD Vertebral A PSV 40.5 cm/sec [facility] RAD Vertebral A EDV 13.8 cm/sec [facility] RAD Vertebral A EDV 13.3 cm/sec [facility] RAD ICA/CCA ratio 1.1 [facility] RAD ICA/CCA ratio 1.2 [facility] RAD Prox SCLA PSV 102.1 cm/sec [facility] RAD Prox SCLA PSV 153.2 cm/sec [facility] RAD BH CV ECHO ISSAC - BZI_BMI 28.6 kilograms/ m^2 [facility] RAD CV ECHO ISSAC - BSA(HAY[place]OCK) 1.9 m^2 [facility] RAD CV ECHO ISSAC - BZI_METRIC_WEIG HT 78.0 kg [facility] RAD CV ECHO ISSAC - BZI_METRIC_HEIG HT 165.1 cm [facility] RAD Left arm BP 128/74 mmHg [facility] RAD Right arm BP 142/77 mmHg [facility] RAD Anatomical Region Laterality Modality Ultrasound 08/30/2017 12:5 4 PM EDT Narrative 08/31/2017 12:38 PM EDT ?? Right internal carotid artery stenosis of 0-49%. ?? Left internal carotid artery stenosis of 0-49%. Study Impression ? ? Right ICA Prox: Imaging of the right ICA indicates 0-49% stenosis. Imaging of the right ICA indicates 0-49% stenosis. ? ? Left ICA Prox: Imaging of the left ICA indicates 0-49% stenosis. Imaging of the left ICA indicates 0-49% stenosis. Study Findings ? ? Right CCA Prox: No plaque visualized. ? ? Right CCA Dist: Smooth homogeneous plaque present. ? ? Right ICA Prox: Smooth homogeneous plaque present. ? ? Right ICA Mid: No plaque visualized. ? ? Right ICA Dist: No plaque visualized. ? ? Right ECA: Smooth homogeneous plaque present. ? ? Right Vertebral: Antegrade flow noted. ? ? Left CCA Prox: Smooth homogeneous plaque present. ? ? Left CCA Dist: Smooth homogeneous plaque present. ? ? Left ICA Prox: Smooth homogeneous plaque present. ? ? Left ICA Mid: No plaque visualized. ? ? Left ICA Dist: No plaque visualized. ? ? Left ECA: Smooth homogeneous plaque present. ? ? Left Vertebral: Antegrade flow noted. us Davis Foote MD CV VASCULAR ORDERABLES Final Re sult documented in this encounter Visit Diagnoses Diagnosis Paresthesia Disturbance of skin sensation Dizziness Dizziness and giddiness documented in this encounter Care Teams Airplane Flight Attendant Supervisor Relationship Specialty Start Date End Date Davis Foote MD [address] [place] [address] [place], [place] [address] PCP - General 09/18/15 07/21/22 documented as of this encounter
--- OUTSIDE RECORDS SUMMARY | 2024-10-02 13:12 | XMS_ITS | Encounter Summary ---
Author Organization [facility] Address [address] [place] [address] Care Team Providers Care Preschool Adviser Name Role Phone Davis Foote MD Primary Care Provider [phone] Encounter Details Date Type Department Care Team (Late st Contact Info) Description 01/10/2018 Telephone [facility] [address] [place] [address] [address] [place] [address] Grisel Irwin, RN Social History [...] as of this encounter Progress Notes * Grisel Miller RN - 01/11/2018 4:43 PM EDTAddended by: GRISEL MILLER on: 01/11/2018 04:43 PM Modules accepted: Orders documented in this encounter Miscellaneous Notes * Telephone Encounter - Grisel Miller RN - 01/10/2018 2:57 PM EDT Received VM from patient stating she is having side effects of Pravastatin and can she discontinue.Call back to patient, left VM for her to call back. Patient called back and reports she is having aching joints, muscle cramps, stiffness and headaches. Only change is the pravastatin. She reports she had blood work done recently at [facility] lab in [facility], attempted to get results, they are closed, will call in am for lipid panel results. [phone] Called and advised patient that Charo says to decrease pravastatin to 40 mg daily and to add CoQ10 200 mg daily. She verbalized understanding. documented in this encounter Plan of Treatment Upcoming Encounters Date Type Department Care Team (Late st Contact Info) Description 12/22/2024 9:50 AM EST Office Visit [facility] [address] [facility] [address] [place] [phone] Go Zazueta MD [address] [facility] [address] [place], [place] [phone] 01/15/2025 9:45 AM EDT Office Visit [facility] [address] [facility] [address] [place] [phone] Joy Skinner APRN [address] [facility] [address] [place] [address] documented as of this encounter Visit Diagnoses Not on filedocumented in this encounter Care Teams Preschool Adviser Relationship Specialty Start Date End Date Davis Foote MD [address] [place] [address] [place] [address] PCP - General 09/18/15 07/21/22 documented as of this encounter
--- OUTSIDE RECORDS SUMMARY | 2024-10-02 13:12 | XMS_ITS | Encounter Summary ---
Author Organization [facility] Address [address] [place] [address] Care Team Providers Care Office Technician Name Role Phone Davis Foote MD Primary Care Provider [phone] Reason for Visit * Reason Comments Follow-up 3 month f/u, NICM Encounter Details Date Type Department Care Team (Late st Contact Info) Description 06/01/2017 11:30 AM EDT Office Visit [facility] [address] [facility] [address] [place] [id number] Kushal Silverman APRN [address] [facility] [address] [place] [address] Takotsubo cardiomyopathy (Primary Dx); Coronary artery disease involving north fork coronary artery of north fork heart without angina pectoris; Essential hypertension; DONNA (obstructive sleep apnea) Social History Tobacco [...] Sign Reading Time Taken Comments Blood Pressure 124/87 06/01/2017 11:38 AM EDT Pulse 66 06/01/2017 11:38 AM EDT Temperature 36 ??C (96.8 ??F) 06/01/2017 11:35 AM EDT Respiratory Rate 16 06/01/2017 11:35 AM EDT Oxygen Saturation 100% 06/01/2017 11:35 AM EDT Room air Inhaled Oxygen Concentration - - Weight 78.9 kg (174 lb) 06/01/2017 11:35 AM EDT Height 167.6 cm (5' 6 ) 06/01/2017 11:35 AM EDT Body Mass Index 28.08 06/01/2017 11:35 AM EDT documented in this encounter Progress Notes * Kushal Silverman APRN - 06/01/2017 11:30 AM EDT [facility] Encounter Date:06/01/2017 Rachael Fleming [address] [place] [address] 1945 Davis Foote MD Rachael Fleming is a 71 y.o. female. Subjective: Chief Complaint: Follow-up (3 month f/u, NICM) HPI F/u for cardiomyopathy, HTN ?? Patient was admitted to [facility] 10/26/2016 and discharged 10/28/2016 with Takosubocardiomyopathy, elevated [...] Patient on losartan HCTZ. Home blood pressures 110-130s/70-80s. Heart rates 60s to 70s. ?? Patient complains of intermittent chest discomfort, shortness duration, infrequent, associated withexertion, improves rapidly with rest. She has noted gradual improvement of physical exertion. She is swimming daily. Unable to be in the heat walking. Unable to sustain climbing inclines (moderate fatigue and dyspnea). States at times she'll be able to participate in cardiac rehabilitation without any any trouble, and then at times she'll feel tired, shortness of breath, mild chest discomfort. She has not taken nitroglycerin. Improves rapidly with rest. Denies edema. Reports occasional wheezingwith a history of asthma but has not used her albuterol. Denies recent PFTs. Reports occasional palpitation, seconds in duration, infrequent, noted at rest. Has a history of sleep apnea but has been intolerant to CPAP in the past. Reports day time fatigue. Is not awakened by palpitations, does not awaken gasping. Denies a.m. headaches or daytime somnolence. Denies orthopnea, PND, dizziness, abdomi nal fullness, early satiety, weight gain. Patient Active Problem List Diagnosis ??? Muscle [...] diagnosis of Takotsubo syndrome, 2007, at the [facility]. ??? Unstable angina [I20.0] ??? Non-STEMI (non-ST elevated myocardial infarction) [I21.4] ??? DONNA (obstructive sleep apnea) [G47.33] ??? Hypertension, however hypotensive since admit with NSTEMI [I10] Past Surgical History: Procedure Laterality Date ??? BREAST LUMPECTOMY Right 20 years ago- extracted and benign ??? CARDIAC CATHETERIZATION 2002 no stents. ??? CARDIAC CATHETERIZATION N/A 10/26/2016 Procedure: Left Heart Cath; Surgeon: Lisa Hensley MD; Location: [facility]; Service: ??? CATARACT EXTRACTION, [...] (COREG) 3.125 MG tablet, TAKE 1 TABLET EVERY 12 HOURS, Disp: 60 tablet, Rfl: 3 ??? clopidogrel (PLAVIX) 75 MG tablet, take 1 tablet by mouth once daily, Disp: 30 tablet, Rfl: 3 ??? losartan-hydrochlorothiazide (HYZAAR) 50-12.5 MG per tablet, take 1 tablet by mouth once daily,Disp: 30 tablet, Rfl: 3 ??? nitroglycerin (NITROSTAT) 0.4 MG SL tablet, Place 0.4 mg under the tongue Every 5 (Five) Minutes As Needed for chest pain. Take no more than 3 doses in 15 minutes., Disp: , Rfl: ??? omeprazole (priLOSEC) 40 MG capsule, Take 40 mg by mouth Daily., Disp: , Rfl: ??? pravastatin (PRAVACHOL) 80 MG tablet, TAKE 1 TABLET EVERY NIGHT, Disp: 30 tablet, Rfl: 3 ??? zolpidem [...] sweats, weight gain and weight loss. HENT: Negative for congestion, headaches and nosebleeds. Eyes: Negative for blurred vision, visual disturbance and visual halos. Cardiovascular: Positive for chest pain (mild), dyspnea on exertion and irregular heartbeat. Negative for claudication, cyanosis, leg swelling, near- syncope, orthopnea, palpitations, paroxysmal nocturnal dyspnea and syncope. Respiratory: Positive for cough. Negative for hemoptysis, shortness of breath, sleep disturbances due to breathing, snoring, sputum production and wheezing. Endocrine: Negative for cold intolerance, heat intolerance, polydipsia, polyphagia and polyuria. Hematologic/Lymphatic: Bruises/bleeds easily. Skin: Negative for dry skin, itching and rash. Musculoskeletal: Positive for joint pain and muscle cramps. Negative for falls, joint swelling, muscle weakness and myalgias. Gastrointestinal: Positive for diarrhea. Negative for bloating, abdominal pain, constipation, dysphagia, heartburn, melena, nausea and vomiting. Genitourinary: Negative for dysuria, flank pain, hematuria and nocturia. Neurological: Positive for excessive daytime sleepiness. Negative for difficulty with concentration, dizziness and loss of balance. Psychiatric/Behavioral: Negative for altered mental status and depression. The patient is nervous/anxious. Allergic/Immunologic: Negative for environmental allergies. Seasonal allergies Objective: Vitals: 06/01/17 1135 06/01/17 1137 06/01/17 1138 BP: 132/81 133/76 124/87 BP Location: Right arm Left arm Left arm Patient Position: Sitting Sitting Standing Pulse: 60 66 Resp: 16 Temp: 96.8 ??F (36 ??C) TempSrc: Temporal Artery SpO2: 100% Weight: 174 lb (78.9 kg) Height: 66 (167.6 cm) Physical Exam [...] no tenderness. Musculoskeletal: She exhibits no edema. Lymphadenopathy: She has no cervical adenopathy. Neurological: She is alert and oriented to person, place, and time. Skin: Skin is warm, dry and intact. No rash noted. No cyanosis or erythema. No pallor. Psychiatric: She has a normal mood and affect. Her behavior is normal. Thought content normal. Vitals reviewed. Lab and Diagnostic Review: 02/26/17: ?? Glucose 118, BUN 13, creatinine 0.7, estimated GFR 88, sodium 138, potassium 4.4, chloride 101, current is a 25, calcium 9.7, ALT 21, AST 19 ?? Cholesterol 147, triglycerides 86, HDL 47, LDL 82, ?? Magnesium 1.7 ?? BNP 28.8 ?? Vitamin D 57.7 ?? Assessment and Plan: 1. Takotsubo cardiomyopathy Now normal EF. NYHA II-III fatigue. ?? 2. Coronary artery disease involving north fork coronary artery of north fork heart without angina pectoris Near normal coronaries, but small vessel disease. C/o of occasional Chest discomfort with exertion. Monitor at this time, but may need Imdur. Discussed adding Imdur or ranexa. Pt would like to wait at this time and discuss with Dr. Diego. Pt to call if s/s worsen Continue cardiac rehab. Discussed exercise modifications to tolerance. Rest when needed. Plavix, asa, ARB, Coreg low dose (could not tolerate due to hypotension) ?? 3. Essential hypertension 4. DONNA: Intolerant to CPap. Discussed f/u with Ethel Weinstein to discuss options. Discussed role the heart and valve Center and when to call. At this time patient will follow up with primary care provider and Dr. Diego is scheduled. Patient will follow-up in the heart and valve Center as needed as a resource or as determined by cardiology. *Please note that portions of this note were completed with a voice recognition program. Efforts were made to edit the dictations, but occasionally words are mistranscribed. documented in this encounter Plan of Treatment Upcoming Encounters Date Type Department Care Team (Late st Contact Info) Description 12/22/2024 9:50 AM EST Office Visit [facility] [address] [facility] [address] [place] [address] Go Zazueta MD [address] [facility] [address] [place], [place] [id number] 01/15/2025 9:45 AM EDT Office Visit [facility] [address] [facility] [address] [place] [address] Joy Skinner APRN [address] [facility] [address] [place], [place] [id number] documented as of this encounter Visit Diagnoses Diagnosis Takotsubo cardiomyopathy- Primary Takotsubo syndrome Coronary artery disease involving north fork coronary artery of north fork heart without angina pectoris Essential hypertension Unspecified essential hypertension DONNA (obstructive sleep apnea) Obstructive sleep apnea (adult) (pediatric) documented in this encounter Care Teams Office Technician Relationship Specialty Start Date End Date Davis Foote MD [address] [place] [address] [place] [address] PCP - General 09/18/15 07/21/22 documented as of this encounter
--- OUTSIDE RECORDS SUMMARY | 2024-10-02 13:12 | XMS_ITS | Encounter Summary ---
Author Organization [facility] Address [address] [place] [address] Care Team Providers Care Independent Freight Agent Name Role Phone Davis Foote MD Primary Care Provider [phone] Reason for Visit * Reason Comments Med Refill Encounter Details Date Type Department Care Team (Late st Contact Info) Description 08/01/2017 Refill [facility] [address] [facility] [address] [place] [address] Kushal Silverman APRN [address] [facility] [address] [place] [address] Med Refill Social History Tobacco Use Types [...] encounter Miscellaneous Notes * Telephone Encounter - Vivienne Morin RPH - 08/02/2017 9:09 AM EDT Refills for clopidogrel 75mg daily were sent on 07/07/17. documented in this encounter Plan of Treatment Upcoming Encounters Date Type Department Care Team (Late st Contact Info) Description 12/22/2024 9:50 AM EST Office Visit [facility] [address] [facility] [address] [place] [address] Go Zazueta MD [address] [facility] [address] [place], [place] [id number] 01/15/2025 9:45 AM EDT Office Visit [facility] [address] [facility] [address] [place] [phone] Joy Skinner APRN [address] [facility] [address] [facility] [address] [place] [phone] documented as of this encounter Visit Diagnoses Not on filedocumented in this encounter Care Teams Independent Freight Agent Relationship Specialty Start Date End Date Davis Foote MD [address] [place] [address] [place] [address] PCP - General 09/18/15 07/21/22 documented as of this encounter
--- OUTSIDE RECORDS SUMMARY | 2024-10-02 13:12 | XMS_ITS | Encounter Summary ---
Author Organization [facility] Address [address] [place] [address] Care Team Providers Care Technical Services Rep Name Role Phone Davis Foote MD Primary Care Provider [phone] Reason for Visit * Reason Comments Chest Pain Encounter Details Date Type Department Care Team (Late st Contact Info) Description 09/29/2017 9:05 AM EST - 09/29/2017 2:36 PM EST Emergency [facility] EMERGENCY [facility]PARTMENT [address] [place] [id number] Grisel Lemos MD [address] [facility] [address] Chest pain, unspecified type (Primary Dx); Shortness of breath; Weakness Discharge Disposition: Home or Self Care Social [...] Sign Reading Time Taken Comments Blood Pressure 124/86 09/29/2017 2:15 PM EST Pulse 60 09/29/2017 1:52 PM EST Temperature 36.4 ??C (97.6 ??F) 09/29/2017 9:10 AM ES T Respiratory Rate 18 09/29/2017 1:52 PM EST Oxygen Saturation 98% 09/29/2017 2:15 PM EST Inhaled Oxygen Concentration - - Weight 76.7 kg (169 lb) 09/29/2017 1:43 PM EST Height 167.6 cm (5' 6 ) 09/29/2017 1:43 PM EST Body Mass Index 27.28 09/29/2017 1:43 PM EST documented in this encounter Discharge Instructions * Attachments The following attachments cannot be sent through Care Everywhere. * NONSPECIFIC CHEST PAIN (SAMMARINESE) documented in this encounter Medications at Time [...] sleep. 1 documented as of this encounter H&P Notes * Cynthia Bowman APRN - 09/29/2017 11:33 AM EST [facility] Cardiovascular History & Physical Note Patient is a 72-year-old female with a history of recurrent Takosubo cardiomyopathy, mild coronary artery disease, and tachypalpitations that is followed by Dr. Nick Diego. The patient presented to [facility] this morning with complaints of chest pressure and sharp chest pains that have been occurring intermittently since this past Wednesday. According to the patient on Wednesday she felt her heart racing and used vasovagal techniques to try and terminate the arrhythmia. The technique was successful in decreasing her heart rate but as her was palpating her pulse he felt her heart pause. She was awoken this morning with the reoccurrence sharp chest pains and felt nauseated and weak. She felt like she would pass out and had to sit with her head between her legs. She was recently placed on Coreg at 3.125 mg twice a day. The goal was to upward titrate but she was unable to tolerate due to fatigue and bradycardia. Her first set of troponin has been negative and EKG normal sinus rhythm with PVCs. She is currently chest pain free. Past medical and surgical history, social and family history reviewed in EMR. REVIEW OF SYSTEMS: H&P ROS reviewed and pertinent CV ROS as noted in HPI. Vital Sign Min/Max for last 24 hours Temp Min: 97.6 ??F (36.4 ??C) Max: 97.6 ??F (36.4 ??C) BP Min: 91/59 Max: 153/78 Pulse Min: 57 Max: 68 Resp Min: 16 Max: 16 SpO2 Min: 97 % Max: 100 % No Data Recorded No intake or output data in the 24 hours ending 09/29/17 1142 Physical Exam Constitutional: She is oriented to person, place, and time. She appears well- developed and well-nourished. HENT: Head: Normocephalic and atraumatic. Eyes: Pupils are equal, round, and reactive to light. No scleral icterus. Neck: No JVD present. Carotid bruit is not present. No thyromegaly present. Cardiovascular: Normal rate, regular rhythm, S1 normal and S2 normal. Exam reveals no gallop. No murmur heard. Pulmonary/Chest: Effort normal and breath sounds normal. Abdominal: Soft. There is no hepatosplenomegaly. There is no tenderness. Neurological: She is alert and oriented to person, place, and time. Skin: Skin is warm and dry. No cyanosis. Nails show no clubbing. Psychiatric: She has a normal mood and affect. Her behavior is normal. EKG: NSR with PVC's Lab Review: Labs reviewed in the electronic medical record. Pertinent findings include: Lab Results Component Value Date GLUCOSE 114 (H) 09/29/2017 BUN 18 09/29/2017 CREATININE 0.80 09/29/2017 EGFRIFNONA 71 09/29/2017 BCR 22.5 09/29/2017 K 3.8 09/29/2017 CO2 25.0 09/29/2017 CALCIUM 10.0 09/29/2017 ALBUMIN 4.80 09/29/2017 LABIL2 1.7 09/29/2017 AST 24 09/29/2017 ALT 22 09/29/2017 Lab Results Component Value Date WBC 12.16 (H) 09/29/2017 HGB 14.0 09/29/2017 HCT 40.2 09/29/2017 MCV 86.6 09/29/2017 PLT 354 09/29/2017 Lab Results Component Value Date CHOL 137 06/04/2017 TRIG 54 06/04/2017 HDL 52 06/04/2017 LDLDIRECT 75 06/04/2017 Hospital Problem List * (Principal)Chest pain Overview Signed 09/29/2017 11:34 AM by Kev Ceballos IV, MD ?? Cardiac catheterization (10/26/16): Near normal coronary arteries. LVEF 20% in the pattern of stress-induced cardiomyopathy. Premature ventricular contractions (PVCs) (VPCs) Overview Addendum 09/29/2017 11:41 AM by Kev Ceballos IV, MD ?? [facility] ER presentation with chest pain and symptomatic PVCs on EKG, 1120 and 17 History of Takotsubo cardiomyopathy Overview Addendum 09/29/2017 11:35 AM by Kev Ceballos IV, MD ?? Initial diagnosis 1996 with recurrences in 2007 and 2015 ?? Cardiac catheterization (10/26/16): Near normal coronary arteries. LVEF 20% in the pattern of stress-induced cardiomyopathy. ?? Echo (06/04/17): LVEF 55%. No valvular abnormality. ?? Obtain echocardiogram ?? If second troponin is negative and echocardiogram within normal limits patient can be dischargedwith a 2 week monitor and follow up with Dr Diego in the office in 3-4 weeks Cynthia Bowman APRN scribe for Dr. Jeferson Ceballos Cosigned by Kev Ceballos IV, MD at 10/06/2017 4:31 PM EST Associated attestation - Kev Ceballos IV, MD - 10/06/2017 4:31 PM EST Kev Ceballos IV, MD 10/06/2017 documented in this encounter Consult Notes * Kev Ceballos IV, MD - 09/29/2017 11:36 AM EST [facility] Cardiology consultation Note Chief Complaint/Reason for service: ?? Chest pain ?? Palpitations The patient is a 72-year-old female with a history of recurrent Takatsubo cardiomyopathy and atrialtachycardia who presents to the emergency room today with chest pain and palpitations. 3 days ago, the patient had a another episode of tachycardia palpitations which was aborted with Valsalva maneuver. She states that since that time she is not felt well. This morning, she developed severe chest pain symptoms at rest. The chest pain symptoms resolved after sublingual nitroglycerin. The patient has had no recurrences of chest pain since her arrival to the ER. She states that the palpitation symptoms have become more frequent in nature and more symptomatic. When the palpitations occur, she beco mes dizzy and lightheaded. The patient has similar symptomatology in October of last year. At that time, she was diagnosed with stress-induced cardiomyopathy after she was found to have an EF of 20% with near normal coronary arteries. Her LV function normalized on subsequent echocardiography in December and June of this year. In the ER, she ruled out for myocardial infarction. A stat echo was performed which showed preserved LV systolic function. Past medical, surgical, social and family history reviewed in the patient's electronic medical record. Review of Systems: All systems were reviewed and negative except for: Constitution: positive for fatigue Cardiovascular: positive for chest pressure / pain, at rest and palpitations Vital Sign Min/Max for last 24 hours Temp Min: 97.6 ??F (36.4 ??C) Max: 97.6 ??F (36.4 ??C) BP Min: 91/59 Max: 153/78 Pulse Min: 57 Max: 68 Resp Min: 16 Max: 16 SpO2 Min: 97 % Max: 100 % No Data Recorded No intake or output data in the 24 hours ending 09/29/17 1142 Physical Exam Constitutional: She is oriented to person, place, and time. She appears well- developed and well-nourished. HENT: Head: Normocephalic and atraumatic. Eyes: No scleral icterus. Neck: No JVD present. Cardiovascular: Normal rate and regular rhythm. No murmur heard. Pulmonary/Chest: Effort normal. Abdominal: Soft. Neurological: She is alert and oriented to person, place, and time. Skin: Skin is warm. Psychiatric: She has a normal mood and affect. Her behavior is normal. Results Review: I reviewed the patient's recent labs in the electronic medical record. Lab Results Component Value Date GLUCOSE 114 (H) 09/29/2017 CALCIUM 10.0 09/29/2017 NA 136 09/29/2017 K 3.8 09/29/2017 CO2 25.0 09/29/2017 CL 102 09/29/2017 BUN 18 09/29/2017 CREATININE 0.80 09/29/2017 EGFRIFNONA 71 09/29/2017 BCR 22.5 09/29/2017 ANIONGAP 9.0 09/29/2017 Lab Results Component Value Date WBC 12.16 (H) 09/29/2017 HGB 14.0 09/29/2017 HCT 40.2 09/29/2017 MCV 86.6 09/29/2017 PLT 354 09/29/2017 Magnesium 2 Lab Results Component Value Date TSH 1.144 09/29/2017 Troponin negative ??2 sets EKG: Sinus rhythm with frequent PVCs. Echo (09/29/17): LVEF 65%. No regional wall motion abnormality. Hospital Problem List * (Principal)Chest pain Overview Signed 09/29/2017 11:34 AM by Kev Ceballos IV, MD ?? Cardiac catheterization (10/26/16): Near normal coronary arteries. LVEF 20% in the pattern of stress-induced cardiomyopathy. Premature ventricular contractions (PVCs) (VPCs) Overview Addendum 09/29/2017 11:41 AM by Kev Ceballos IV, MD ?? [facility] ER presentation with chest pain and symptomatic PVCs on EKG, 1120 and 17 History of Takotsubo cardiomyopathy Overview Addendum 09/29/2017 11:35 AM by Kev Ceballos IV, MD ?? Initial diagnosis 1996 with recurrences in 2007 and 2015 ?? Cardiac catheterization (10/26/16): Near normal coronary arteries. LVEF 20% in the pattern of stress-induced cardiomyopathy. ?? Echo (06/04/17): LVEF 55%. No valvular abnormality. The patient has biomarker negative chest pain with near normal coronary arteries on recent cardiac catheterization. Her chest pain symptoms are nitrate responsive, which raises the possibility of coronary vasospasm as an etiology to her symptoms. Additionally, she has had increased burden of palpitations and I wonder whether she is suffering SVT (other than atrial tachycardia which is been previously diagnosed). ?? Discharge home from ER on same medications ?? 14 day Holter monitor to be placed prior to discharge ?? Follow-up with Nick Diego in 4-6 weeks. At that time, may consider empiric treatment for coronary vasospasm. ?? Patient's been instructed on the use of sublingual nitroglycerin as needed for chest pain. Kev Ceballos IV, MD 09/29/2017 documented in this encounter ED Notes * José Miguel Conklin APRN - 09/29/2017 9:32 AM EST Subjective Patient is a 72 y.o. female presenting with chest pain. Chest Pain Pain location: Substernal area Pain quality: pressure Pain radiates to: Does not radiate Onset quality: Gradual Duration: 2 days Timing: Constant Progression: Waxing and waning Chronicity: New Context comment: WORSE WITH EXERTION. BETTER WITH REST. Relieved by: Rest, nitroglycerin and oxygen Worsened by: Exertion Ineffective treatments: None tried Associated symptoms: dizziness and shortness of breath Associated symptoms: no abdominal pain Review of Systems Respiratory: Positive for shortness of breath. Cardiovascular: Positive for chest pain. Gastrointestinal: Negative for abdominal pain. Neurological: Positive for dizziness. All other systems reviewed and are negative. [...] 11/05/2016 ??? Takotsubo cardiomyopathy Initially diagnosed at [place] 2007. EF 20 at that time. 2009 [...] Heart Cath; Surgeon: Lisa Hensley MD; Location: [facility]; Service: ??? CATARACT EXTRACTION, [...] time. She appears well- developed and well-nourished. She appears distressed. HENT: Head: Normocephalic and atraumatic. Right Ear: External ear normal. Left Ear: External ear normal. Nose: Nose normal. Mouth/Throat: Oropharynx is clear and moist. Eyes: Conjunctivae and EOM are normal. Pupils are equal, round, and reactive to light. Neck: Normal range of motion. Neck supple. Cardiovascular: Normal rate, regular rhythm, normal heart sounds and intact distal pulses. Pulmonary/Chest: Effort normal and breath sounds normal. Abdominal: Soft. Bowel sounds are normal. Musculoskeletal: Normal range of motion. Neurological: She is alert and oriented to person, place, and time. Skin: Skin is warm and dry. Psychiatric: She has a normal mood and affect. Her behavior is normal. Judgment and thought contentnormal. Procedures ED Course ED Course Comment By Time I consulted CB cards via [employer] and they will see in the ED. José Miguel Conklin APRN 09/[address] Ceballos in person. March dc once pt has gotten their holter monitor. José Miguel Conklin APRN 09/29 1425 [facility] Final diagnoses: Chest pain, unspecified type Shortness of breath Weakness José Miguel Conklin APRN 09/29/17 1426 Cosigned by Grisel Lemos MD at 09/29/2017 4:08 PM EST Associated attestation - Grisel Lemos MD - 09/29/2017 4:08 PM EST For this patient encounter, I reviewed the LUBE TECHNICIAN or PA documentation, treatment plan, and medical decision making. Grisel Lemos MD 09/29/2017 4:08 PM documented in this encounter Plan of Treatment Upcoming Encounters Date Type Department Care Team (Late st Contact Info) Description 12/22/2024 9:50 AM EST Office Visit [facility] [address] [place] [address] Go Zazueta MD [address] [facility] [address] [place] [address] 01/15/2025 9:45 AM EDT Office Visit [facility] [address] [place] [address] Joy Skinner, BO [address] [place] [address] documented as of this encounter Procedures Procedure Name Priority Date/Time Associated Diagnosis Comments LIMITED 2D ECHO ONLY STAT 09/29/2017 1:43 PM EST ECG 12-LEAD STAT 09/29/2017 12:49 PM EST POCT TROPONIN I, RAPID STAT 7 12:20 PM EST XR CHEST 1 VW STAT 09/29/2017 9:40 AM EST POCT TROPONIN I, RAPID STAT 7 9:33 AM EST GOLD TOP - SST STAT 09/29/2017 9:28 AM EST DK GREEN TOP STAT 09/29/2017 9:28 AM EST CBC WITH AUTO DIFFERENTIAL STAT 09/29/2017 9:28 AM EST LAVENDER TOP STAT 09/29/2017 9:28 AM EST LIGHT BLUE TOP STAT 09/29/2017 9:28 AM EST RAINBOW DRAW STAT 09/29/2017 9:28 AM EST CBC AND DIFFERENTIAL STAT 09/29/2017 9:28 AM EST TSH STAT 09/29/2017 9:28 AM EST MAGNESIUM STAT 09/29/2017 9:28 AM EST COMPREHENSIVE METABOLIC PANEL STAT 09/29/2017 9:28 AM EST ECG 12-LEAD STAT 09/29/2017 9:09 AM EST documented in this encounter Results * LIMITED 2D ECHO ONLY (09/29/2017 1:43 PM EST) IVSd 0.72 cm EMC RAD LVIDd 4.7 cm EMC RAD LVIDs 3.6 cm EMC RAD LVPWd 0.78 cm EMC RAD IVS/LVPW 0.92 EMC RAD FS 24.0 % EMC RAD EDV(Teich) 104.7 ml EMC RAD ESV(Teich) 54.7 ml EMC RAD EF(Teich) 47.8 % EMC RAD EDV(cubed) 106.8 ml EMC RAD ESV(cubed) 46.9 ml EMC RAD EF(cubed) 56.1 % EMC RAD LV mass(C)d 113.7 grams EMC RAD SV(Teich) 50.0 ml EMC RAD SV(cubed) 59.9 ml EMC RAD Ao root diam 2.3 cm EMC RAD Ao root area 4.3 cm^2 EMC RAD LA dimension (2D) 3.5 cm EMC RAD LA/Ao 1.5 EMC RAD LVOT diam 1.9 cm EMC RAD LVOT area 2.9 cm^2 EMC RAD LVOT area(traced) 2.8 cm^2 EMC RAD LVLd ap4 7.2 cm EMC RAD EDV(MOD-sp4) 81.0 ml EMC RAD LVLs ap4 6.4 cm EMC RAD ESV(MOD-sp4) 25.0 ml EMC RAD EF(MOD-sp4) 69.1 % EMC RAD LVLd ap2 6.8 cm EMC RAD EDV(MOD-sp2) 61.0 ml EMC RAD LVLs ap2 6.2 cm EMC RAD ESV(MOD-sp2) 19.0 ml EMC RAD EF(MOD-sp2) 68.9 % EMC RAD SV(MOD-sp4) 56.0 ml EMC RAD SV(MOD-sp2) 42.0 ml EMC RAD EF - Contrast (2Ch) 68.9 ml/m^2 EMC RAD EF - Contrast (4Ch) 69.1 ml/m^2 EMC RAD BH CV VAS BP LEFT ARM 125/73 mmHg EMC RAD RV Base 3.40 cm EMC RAD RV Length 6.80 cm EMC RAD RV Mid 3.10 cm EMC RAD Echo EF Estimated 65 % EMC RAD Anatomical Region Laterality Modality Ultrasound 09/29/2017 12:0 3 PM EST Narrative 09/29/2017 2:10 PM EST ?? Left ventricular systolic function is normal. Estimated EF = 65%. No regional wall motion abnormalities present. ?? The aortic and mitral valves are anatomically and functionally normal. Left Ventricle Left ventricular systolic function is normal. Calculated EF = 69.1%. Estimated EF = 65%. Normal left ventricular cavity size and wall thickness noted. Right Ventricle Normal right ventricular cavity size, wall thickness, systolic function and septal motion noted. Left Atrium Normal left atrial size and volume noted. Right Atrium Normal right atrial size noted. Mitral Valve The mitral valve is normal in structure. Trace mitral valve regurgitation is present. No significant mitral valve stenosis is present. Tricuspid Valve The tricuspid valve is normal. No tricuspid valve stenosis is present. Aortic Valve The aortic valve is structurally normal. Pulmonic Valve The pulmonic valve was not assessed. Pericardium The pericardium is normal. There is no evidence of pericardial effusion. Additional Study Details A two-dimensional transthoracic echocardiogram with color flow and Doppler was performed. The study is technically good for diagnosis. Greater Vessels No dilation of the aortic root is present. No dilation of the sinuses of Valsalva is present. Wall Scoring Score Index: 1.000 Percent Normal: 100.0% The left ventricular wall motion is normal. us Kev Ceballos IV, MD CV ECHO ORDERABL ES Final Result * ECG 12 Lead (09/29/2017 12:49 PM EST) 09/29/2017 12:4 9 PM EST 09/29/2017 1:50 PM EST Narrative ECG - 09/29/2017 1:50 PM EST Test Reason : 2nd Blood Pressure : / mmHG Vent. Rate : 061 BPM ? Atrial Rate : 061 BPM ?? P-R Int : 146 ms ?QRS Dur : 084 ms ?QT Int : 442 ms ? P-R-T Axes : 014 015 027 degrees ?? QTc Int : 444 ms Normal sinus rhythm Low voltage QRS Borderline ECG When compared with ECG of 29-SEP-2017 09:09, (Unconfirmed) premature ventricular complexes are no longer present Confirmed by POOJA ??GRISEL MARCOS ([id number]) on 09/29/2017 1:50:36 PM Referred By: er ? Confirmed By:GRISEL LEMOS ??MD Procedure Note Grisel Lemos MD - 09/29/2017 Test Reason : 2nd Blood Pressure : / mmHG Vent. Rate : 061 BPM Atrial Rate : 061 BPM P-R Int : 146 ms QRS Dur : 084 ms QT Int : 442 ms P-R-T Axes : 014 015 027 degrees QTc Int : 444 ms Normal sinus rhythm Low voltage QRS Borderline ECG When compared with ECG of 29-SEP-2017 09:09, (Unconfirmed) premature ventricular complexes are no longer present Confirmed by GRISEL LEMOS MD ([id number]) on 09/29/2017 1:50:36 PM Referred By: er Confirmed By:GRISEL LEMOS MD us Grisel Lemos MD ECG ORDERABLES Final Result ECG * POC Troponin, Rapid (09/29/2017 12:20 PM EST) Troponin I 0.02 0.00 - 0.07 ng/mL 09/29/2017 12:41 PM EST [facility] Comment:Serial Number: [id number]: [id number] Blood 09/29/2017 12:2 0 PM EST 09/29/2017 12:40 PM EST Grisel Lemos MD POINT OF CARE TEST ORDERABLE S Final Result [facility]
[address] [place] [address], * XR Chest 1 View (09/29/2017 9:40 AM EST) Anatomical Region Laterality Modality Body N/A Radiographic Bonnie ging 09/29/2017 12:0 3 PM EST Impressions 09/29/2017 2:00 PM EST No active disease. D: ??09/29/2017 E: ??09/29/2017 This report was finalized on 09/29/2017 2:[address] Johnson Brand MD. Narrative 09/29/2017 2:00 PM EST EXAMINATION: XR CHEST 1 VW- 09/29/2017 INDICATION: Dysrhythmia triage protocol COMPARISON: 09/27/2010 FINDINGS: There is a normal cardiac silhouette. There is no pulmonary inflammatory process, mass or effusion. ? Procedure Note Federico Brand MD - 09/29/2017 EXAMINATION: XR CHEST 1 VW- 09/29/2017 INDICATION: Dysrhythmia triage protocol COMPARISON: 09/27/2010 FINDINGS: There is a normal cardiac silhouette. There is no pulmonary inflammatory process, mass or effusion. IMPRESSION: No active disease. E: 09/29/2017 This report was finalized on 09/29/2017 2:[address] Johnson Brand MD. Grisel Lemos MD IMG DIAGNOSTIC IMAGING ORDER SUHAIL Final Result * POC Troponin, Rapid (09/29/2017 9:33 AM EST) Troponin I 0.02 0.00 - 0.07 ng/mL 09/29/2017 9:50 AM EST [facility] Comment:Serial Number: [id number]: [id number] Blood 09/29/2017 9:33 AM EST 09/29/2017 9:50 AM EST Grisel Lemos MD POINT OF CARE TEST ORDERABLE S Final Result Performing Organization Address [facility] Co de Phone Number [facility]
[address] [place] [address], * TSH (09/29/2017 9:28 AM EST) TSH 1.144 0.350 - 5.350 mIU/mL 09/29/2017 12:22 PM EST [facility] Blood Line / Unknown 09/29/2017 9: 28 AM EST 09/29/2017 9:34 AM EST Kev Ceballos IV, MD LAB BLOOD ORDERA BLES Final Result Performing Organization Address City/[facility] de Phone Number [facility]
[address] [place] [address], * (ABNORMAL) CBC Auto Differential (09/29/2017 9:28 AM EST) WBC 12.16(H) 3.50 - 10.80 10*3/mm3 09/29/2017 9:38 AM [facility] RBC 4.64 3.89 - 5.14 10*6/mm3 09/29/2017 9:38 AM EST [facility] Hemoglobin 14.0 11.5 - 15.5 g/dL 09/29/2017 9:38 AM [facility] Hematocrit 40.2 34.5 - 44.0 % 09/29/2017 9:38 AM [facility] MCV 86.6 80.0 - 99.0 fL 09/29/2017 9:38 AM [facility] MCH 30.2 27.0 - 31.0 pg 09/29/2017 9:38 AM [facility] MCHC 34.8 32.0 - 36.0 g/dL 09/29/2017 9:38 AM [facility] RDW 12.5 11.3 - 14.5 % 09/29/2017 9:38 AM [facility] RDW-SD 39.9 37.0 - 54.0 fl 09/29/2017 9:38 AM [facility] MPV 10.1 6.0 - 12.0 fL 09/29/2017 9:38 AM [facility] Platelets 354 150 - 450 10*3/mm3 09/29/2017 9:38 AM [facility] Neutrophil % 71.0 41.0 - 71.0 % 09/29/2017 9:38 AM [facility] Lymphocyte % 18.8(L) 24.0 - 44.0 % 09/29/2017 9:38 AM [facility] Monocyte % 8.9 0.0 - 12.0 % 09/29/2017 9:38 AM [facility] Eosinophil % 0.9 0.0 - 3.0 % 09/29/2017 9:38 AM [facility] Basophil % 0.2 0.0 - 1.0 % 09/29/2017 9:38 AM [facility] Immature Grans % 0.2 0.0 - 0.6 % 09/29/2017 9:38 AM [facility] Neutrophils, Absolute 8.63(H) 1.50 - 8.30 10*3/mm3 09/29/2017 9:38 AM [facility] Lymphocytes, Absolute 2.28 0.60 - 4.80 10*3/mm3 09/29/2017 9:38 AM [facility] Monocytes, Absolute 1.08(H) 0.00 - 1.00 10*3/mm3 09/29/2017 9:38 AM [facility] Eosinophils, Absolute 0.11 0.00 - 0.30 10*3/mm3 09/29/2017 9:38 AM [facility] Basophils, Absolute 0.03 0.00 - 0.20 10*3/mm3 09/29/2017 9:38 AM EST [facility] Immature Grans, Absolute 0.03 0.00 - 0.03 10*3/mm3 09/29/2017 9:38 AM EST [facility] Blood Line / Unknown 09/29/2017 9: 28 AM EST 09/29/2017 9:34 AM EST us Grisel Lemos MD LAB BLOOD ORDERABLES Final R esult [facility]
[address] [place] [address], * Gold Top - SST (09/29/2017 9:28 AM EST) Extra Tube Hold for add-ons. 09/29/2017 10:31 AM EST [facility] Comment:Auto resulted. Blood Line / Unknown 09/29/2017 9: 28 AM EST 09/29/2017 9:34 AM EST us Grisel Lemos MD LAB BLOOD ORDER ONLY Final R esult Performing Organization Address City/[facility]/ZIP Co de Phone Number [facility]
[address] [place] [address], [place] [phone] * Lavender Top (09/29/2017 9:28 AM EST) Extra Tube hold for add-on 09/29/2017 10:31 AM EST [facility] Comment:Auto resulted Blood Line / Unknown 09/29/2017 9: 28 AM EST 09/29/2017 9:34 AM EST us Grisel Lemos MD LAB BLOOD ORDER ONLY Final R esult Performing Organization Address City/[facility]/ZIP Co de Phone Number [facility]
[address] [place] [address], [place] [phone] * Green Top (Gel) (09/29/2017 9:28 AM EST) Extra Tube Hold for add-ons. 09/29/2017 10:31 AM EST [facility] Comment:Auto resulted. Blood Line / Unknown 09/29/2017 9: 28 AM EST 09/29/2017 9:34 AM EST us Grisel Lemos MD LAB BLOOD ORDER ONLY Final R esult Performing Organization Address City/[facility]/ZIP Co de Phone Number [facility]
[address] [place] [address], * Light Blue Top (09/29/2017 9:28 AM EST) Extra Tube hold for add-on 09/29/2017 10:31 AM EST [facility] Comment:Auto resulted Blood Line / Unknown 09/29/2017 9: 28 AM EST 09/29/2017 9:34 AM EST us Grisel Lemos MD LAB BLOOD ORDER ONLY Final R esult Performing Organization Address [facility] Co de Phone Number [facility]
[address] [place] [address], [place] [phone] * Magnesium (09/29/2017 9:28 AM EST) Magnesium 2.0 1.3 - 2.7 mg/dL 09/29/2017 9:59 AM EST [facility] Blood Line / Unknown 09/29/2017 9: 28 AM EST 09/29/2017 9:34 AM EST us Grisel Lemos MD LAB BLOOD ORDERABLES Final R esult Performing Organization Address City/[facility] Co de Phone Number [facility]
[address] [place] [address], [place] [phone] * (ABNORMAL) Comprehensive Metabolic Panel (09/29/2017 9:28 AM EST) [facility] Glucose 114(H) 70 - 100 mg/dL 09/29/2017 9:59 AM [facility] BUN 18 9 - 23 mg/dL 09/29/2017 9:59 AM [facility] Creatinine 0.80 0.60 - 1.30 mg/dL 09/29/2017 9:59 AM [facility] Sodium 136 132 - 146 mmol/L 09/29/2017 9:59 AM [facility] Potassium 3.8 3.5 - 5.5 mmol/L 09/29/2017 9:59 AM [facility] Chloride 102 99 - 109 mmol/L 09/29/2017 9:59 AM [facility] CO2 25.0 20.0 - 31.0 mmol/L 09/29/2017 9:59 AM [facility] Calcium 10.0 8.7 - 10.4 mg/dL 09/29/2017 9:59 AM [facility] Total Protein 7.7 5.7 - 8.2 g/dL 09/29/2017 9:59 AM [facility] Albumin 4.80 3.20 - 4.80 g/dL 09/29/2017 9:59 AM [facility] ALT (SGPT) 22 7 - 40 U/L 09/29/2017 9:59 AM [facility] AST (SGOT) 24 0 - 33 U/L 09/29/2017 9:59 AM [facility] Alkaline Phosphatase 99 25 - 100 U/L 09/29/2017 9:59 AM [facility] Total Bilirubin 0.9 0.3 - 1.2 mg/dL 09/29/2017 9:59 AM [facility] eGFR Non Amer 71 >60 mL/min/1.7 3 09/29/2017 9:59 AM [facility] Globulin 2.9 gm/dL 09/29/2017 9:59 AM [facility] A/G Ratio 1.7 1.5 - 2.5 g/dL 09/29/2017 9:59 AM EST [facility] BUN/Creatinine Ratio 22.5 7.0 - 25.0 09/29/2017 9:59 AM EST [facility] Anion Gap 9.0 3.0 - 11.0 mmol/L 09/29/2017 9:59 AM EST [facility] Blood Line / Unknown 09/29/2017 9: 28 AM EST 09/29/2017 9:34 AM EST Narrative [facility] - 09/29/2017 9:59 AM EST National [employer] Guidelines Stage ? Description ?GFR 1 ? Normal or High ? 90+ 2 ? Mild decrease ?60-89 3 ? Moderate decrease ??30-59 4 ? Severe decrease ?15-29 5 ? Kidney failure ? <15 us Grisel Lemos MD LAB BLOOD ORDERABLES Final R esult [facility]
[address] [place] [address], * ECG 12 Lead (09/29/2017 9:09 AM EST) 09/29/2017 9:09 AM EST 09/29/2017 1:50 PM EST Narrative ECG - 09/29/2017 1:50 PM EST Test Reason : cp Blood Pressure : / mmHG Vent. Rate : 073 BPM ? Atrial Rate : 073 BPM ?? P-R Int : 144 ms ?QRS Dur : 080 ms ?QT Int : 412 ms ? P-R-T Axes : -16 026 043 degrees ?? QTc Int : 453 ms Sinus rhythm with frequent premature ventricular complexes Otherwise normal ECG When compared with ECG of 04-JUN-2017 01:59, premature ventricular complexes are now present Confirmed by POOJA ??GRISEL MARCOS ([id number]) on 09/29/2017 1:50:13 PM Referred By: ??ED MD ? Confirmed By:GRISEL LEMOS ?? Procedure Note Grisel Lemos MD - 09/29/2017 Test Reason : cp Blood Pressure : / mmHG Vent. Rate : 073 BPM Atrial Rate : 073 BPM P-R Int : 144 ms QRS Dur : 080 ms QT Int : 412 ms P-R-T Axes : -16 026 043 degrees QTc Int : 453 ms Sinus rhythm with frequent premature ventricular complexes Otherwise normal ECG When compared with ECG of 04-JUN-2017 01:59, premature ventricular complexes are now present Confirmed by GRISEL LEMOS MD ([id number]) on 09/29/2017 1:50:13 PM Referred By: ED Confirmed By:GRISEL LEMOS MD Grisel Lemos MD ECG ORDERABLES Final Result ECG documented in this encounter Visit Diagnoses Diagnosis Chest pain, unspecified type Shortness of breath Weakness Other malaise and fatigue History of Takotsubo cardiomyopathy Takotsubo syndrome Premature ventricular contractions (PVCs) (VPCs) Other premature beats Coronary artery disease, history of NSTEMI Coronary atherosclerosis of unspecified type of vessel, [place] or graft Chest pain Unspecified chest pain documented in this encounter Administered Medications Inactive Administered Medications - up to 3 most recent administrations Medication Order MAR Action Action Date Dose Rate Site Magnesium Sulfate 2 gram Bolus, followed by 8 gram infusion (total Mg dose 10 grams)- Mg less than or equal to 1mg/dL 2 g, Intravenous, As Needed, Mg less than or equal to 1mg/dL, Starting on Wed09/29/17 at 1143, Give 2 gm over 30 minutes as bolus, then infuse 2 gm over 2 hours for 4 doses (8 grams) for total dose of 10 grams. Recheck Mg levels in the AM. magnesium sulfate 4 gram infusion- Mg 1.6-1.9 mg/dL 4 g, Intravenous, at 25 mL/hr, Administer over 4 Hours, As Needed, Mg 1.6-1.9 mg/dL, Starting on Wed09/29/17 at 1143, Recheck Mg level in the AM. Magnesium Sulfate 6 gram Infusion (2 gm x 3) -Mg 1.1 -1.5 mg/dL 2 g, Intravenous, at 25 mL/hr, Administer over 2 Hours, As Needed, Mg 1.1 -1.5 mg/dL, Starting on Wed09/29/17 at 1143, Infuse 2 grams over 2 hours for 3 doses (for a total Mg dose of 6 grams). Recheck Mg level in the AM. nitroglycerin (NITROSTAT) SL tablet 0.4 mg 0.4 mg, Sublingual, Every 5 Minutes PRN, Chest Pain, Starting on Wed09/29/17 at 0932, May administer up to 3 doses per episode. Given 09/29/2017 10:06 AM EST 0.4 mg Given 09/29/2017 9:38 AM EST 0.4 mg potassium chloride (KLOR-CON) packet 40 mEq 40 mEq, Oral, As Needed, potassium replacement, see admin instructions, Starting on Wed09/29/17 at 1143, Potassium replacement Oral (may give capsule or powder packet) If K+ less than or equal to 3.1 give KCl 40 mEq q4h x 3 doses If K+ 3.2- 3.6 give KCl 40 mEq q4h x 2 doses Check potassium 4 hours after last dose given. Check magnesium if K stays low after replacement. DO NOT GIVE if CrCl is less than 30 mL/minute or urine output is less than 30 mL/hr potassium chloride (MICRO-K) CR capsule 40 mEq 40 mEq, Oral, As Needed, potassium replacement.?see admin instructions, Starting on Wed09/29/17 at 1143, Potassium replacement Oral (may give capsule or powder packet) If K+ less than or equal to 3.1 give KCl 40 mEq q4h x 3 doses If K+ 3.2- 3.6 give KCl 40 mEq q4h x 2 doses Check potassium 4 hours after last dose given. Check magnesium if K stays low after replacement. DO NOT GIVE if CrCl is less than 30 mL/minute or urine output is less than 30 mL/hr sodium chloride 0.9 % flush 10 mL 10 mL, Intravenous, As Needed, Line Care, Starting on Wed09/29/17 at 0919 documented in this encounter Active and Recently Administered Medications Times are shown in EST. PRN Medication Order 09/27/2017 09/28/2017 09/29/2017 Magnesium Sulfate 2 gram Bolus, followed by 8 gram infusion (total Mg dose 10 grams)- Mg less than or equal to 1mg/dL(Linked Group 1) 2 g, Intravenous, As Needed, Mg less than or equal to 1mg/dL, Starting on Wed09/29/17 at 1143, Give 2 gm over 30 minutes as bolus, then infuse 2 gm over 2 hours for 4 doses (8 grams) for total dose of 10 grams. Recheck Mg levels in the AM. magnesium sulfate 4 gram infusion- Mg 1.6-1.9 mg/dL(Linked Group 1) 4 g, Intravenous, at 25 mL/hr, Administer over 4 Hours, As Needed, Mg 1.6-1.9 mg/dL, Starting on Wed09/29/17 at 1143, Recheck Mg level in the AM. Magnesium Sulfate 6 gram Infusion (2 gm x 3) -Mg 1.1 -1.5 mg/dL(Linked Group 1) 2 g, Intravenous, at 25 mL/hr, Administer over 2 Hours, As Needed, Mg 1.1 -1.5 mg/dL, Starting on Wed09/29/17 at 1143, Infuse 2 grams over 2 hours for 3 doses (for a total Mg dose of 6 grams). Recheck Mg level in the AM. nitroglycerin (NITROSTAT) SL tablet 0.4 mg 0.4 mg, Sublingual, Every 5 Minutes PRN, Chest Pain, Starting on Wed09/29/17 at 0932, May administer up to 3 doses per episode. 0938 (Given - Provid er: Beba Looney RN)1006 (Given - Provider: Beba Looney RN) potassium chloride (KLOR-CON) packet 40 mEq 40 mEq, Oral, As Needed, potassium replacement, see admin instructions, Starting on Wed09/29/17 at 1143, Potassium replacement Oral (may give capsule or powder packet) If K+ less than or equal to 3.1 give KCl 40 mEq q4h x 3 doses If K+ 3.2-3.6 give KCl 40 mEq q4h x 2 doses Check potassium 4 hours after last dose given. Check magnesium if K stays low after replacement. DO NOT GIVE if CrCl is less than 30 mL/minute or urine output is less than 30 mL/hr potassium chloride (MICRO-K) CR capsule 40 mEq 40 mEq, Oral, As Needed, potassium replacement.?see admin instructions, Starting on Wed09/29/17 at 1143, Potassium replacement Oral (may give capsule or powder packet) If K+ less than or equal to 3.1 give KCl 40 mEq q4h x 3 doses If K+ 3.2-3.6 give KCl 40 mEq q4h x 2 doses Check potassium 4 hours after last dose given. Check magnesium if K stays low after replacement. DO NOT GIVE if CrCl is less than 30 mL/minute or urine output is less than 30 mL/hr sodium chloride 0.9 % flush 10 mL 10 mL, Intravenous, As Needed, Line Care, Starting on Wed09/29/17 at 0919 Linked Groups Order Group 1: Magnesium Sulfate 2 gram Bolus, followed by 8 gram infusion (total Mg dose 10 grams)- Mg less than or equal to 1mg/dLJump to med 2 g, Intravenous, As Needed, Mg less than or equal to 1mg/dL, Starting on Wed09/29/17 at 1143, Give 2 gm over 30 minutes as bolus, then infuse 2 gm over 2 hours for 4 doses (8 grams) for total dose of 10 grams. Recheck Mg levels in the AM. Or Magnesium Sulfate 6 gram Infusion (2 gm x 3) -Mg 1.1 -1.5 mg/dLJump to med 2 g, Intravenous, at 25 mL/hr, Administer over 2 Hours, As Needed, Mg 1.1 -1.5 mg/dL, Starting on Wed09/29/17 at 1143, Infuse 2 grams over 2 hours for 3 doses (for a total Mg dose of 6 grams). Recheck Mg level in the AM. Or magnesium sulfate 4 gram infusion- Mg 1.6-1.9 mg/dLJump to med 4 g, Intravenous, at 25 mL/hr, Administer over 4 Hours, As Needed, Mg 1.6-1.9 mg/dL, Starting on Wed09/29/17 at 1143, Recheck Mg level in the AM. documented in this encounter Care Teams Technical Services Rep Relationship Specialty Start Date End Date Davis Foote MD [address] [place] [address] PCP - General 09/18/15 07/21/22 documented as of this encounter
--- OUTSIDE RECORDS SUMMARY | 2024-10-02 13:12 | XMS_ITS | Encounter Summary ---
Author Organization [facility] Address [address] [place] [address] Care Team Providers Care Roguer Name Role Phone Davis Foote MD Primary Care Provider [phone] Encounter Details Date Type Department Care Team (Late st Contact Info) Description 12/14/2017 Telephone [facility] [address] [place] [address] [address] [place] [address] Grisel Irwin RN Social History [...] Telephone Encounter - Grisel Treviño RN - 12/14/2017 10:[address] Foote called and would like Dr. Diego's opinion on patients recent episodes of extreme weakness, feeling flushed, near syncope. He faxed copy of his office note and is thinking about stopping Coreg and starting Imdur. Spoke with Dr. Diego, he advises do not stop coreg, suggests an event monitor to try and capture any episode. Advised Dr. Foote of above, he states he will call patient and advise her. Will place order for monitor. documented in this encounter Plan of Treatment Upcoming Encounters Date Type Department Care Team (Late st Contact Info) Description 12/22/2024 9:50 AM EST Office Visit [facility] ORTHOPEDICS & SPORTS MEDICINE [address] [facility] [address] [place] [address] Go Zazueta MD [address] [facility] [address] [place], [place] [id number] 01/15/2025 9:45 AM EDT Office Visit [facility] [address] [facility] [address] [place] [address] Joy Skinner APRN [address] [facility] [address] [place], [place] [id number] documented as of this encounter Visit Diagnoses Not on filedocumented in this encounter Care Teams Roguer Relationship Specialty Start Date End Date Davis Foote MD [address] [place] [address] [place] [address] PCP - General 09/18/15 07/21/22 documented as of this encounter
--- OUTSIDE RECORDS SUMMARY | 2024-10-02 13:12 | XMS_ITS | Encounter Summary ---
Author Organization [facility] Address [address] [place] [address] Care Team Providers Care Chief Cloth Finishing Range Operator Name Role Phone Davis Foote MD Primary Care Provider [phone] Reason for Visit * Reason Comments Coronary Artery Disease Encounter Details Date Type Department Care Team (Late st Contact Info) Description 07/07/2017 1:15 PM EDT Office Visit [facility] [address] [place] [address] Abebe Deigo MD [address] [facility] [address] [place] [address] Atrial tachycardia (Primary Dx); History of Takotsubo cardiomyopathy; Essential hypertension; NICM (nonischemic cardiomyopathy); Takotsubo cardiomyopathy Social History Tobacco Use Types Packs/Day Years [...] Sign Reading Time Taken Comments Blood Pressure 116/70 07/07/2017 1:15 PM EDT Pulse 74 07/07/2017 1:15 PM EDT Temperature - - Respiratory Rate - - Oxygen Saturation - - Inhaled Oxygen Concentration - - Weight 78 kg (172 lb) 07/07/2017 1:15 PM EDT Height 165.1 cm (5' 5 ) 07/07/2017 1:15 PM EDT Body Mass Index 28.62 07/07/2017 1:15 PM EDT documented in this encounter Progress Notes * Nicanor Gaines RN - 07/07/2017 2:21 PM EDTAddended by: NICANOR GAINES on: 07/07/2017 02:21 PM Modules accepted: Orders * Abebe Diego MD - 07/07/2017 1:15 PM EDT Subjective: Encounter Date:07/07/2017 Patient ID: Rachael Fleming is a 71 y.o. female. Chief Complaint:Coronary Artery Disease PROBLEM LIST: 1. Cardiomyopathy. a. Initial diagnosis, 1996, with subsequent recovery. b. Recurrence with diagnosis of Takotsubo syndrome, ??2007, at the [facility]. c. Recurrence 10/26/16 d. Resolved by ECHO 12/2016 2. Coronary artery disease. a. August 1997, cardiac catheterization with normal coronary arteries. ??Normal EF. b. Cardiac catheterization, ??June 2008, with no significant coronary artery disease. ??Ejection fraction at that time 20%. c. January 2009, echocardiogram with ejection fraction of 55 +/- 5%. ?? d. [facility] 10/26/16: Takotsubo/stress-induced cardiomyopathy with severe LV systolic dysfunction, EF 20%. ??Near normal coronary arteries. e. Echo 10/28/16: EF 41%. ??Findings consistent with stress-induced (Takotsubo ) cardiomyopathy. ??Mild MR, mild TR. 3. Recurrent palpitations/tachyarrhythmias. a. Normal Holter, October 2011. b. Event recorder shows atrial tachycardia at 145 beats per minute, which is symptomatic. Recurrentepisode June 2017 4. Peptic ulcer disease. 5. Hiatal hernia. [...] of Present Illness Patient returns today for a follow-up for her episode of tachycardia palpitations/atrial fibrillation arrhythmias. The patient was doing well, had an episode of atrial arrhythmias Lasix several hoursassociated with nausea and vomiting. She sought medical attention. This was not caught on monitor, but was self-limited when she showed up for evaluation. She has had no further episodes since then. She overall feels well without chest pain shortness breath orthopnea PND presyncope syncope or tachycardia arrhythmias. The following portions of the patient's history were reviewed and updated as appropriate: allergies, current medications, past family history, past medical history, past social history, past surgicalhistory and problem list. Social History Substance Use Topics ??? Smoking status: Never Smoker ??? Smokeless tobacco: Never Used ??? Alcohol use No Review of Systems Constitution: Negative. Cardiovascular: Negative. Respiratory: Negative. Hematologic/Lymphatic: Negative for bleeding problem. Does not bruise/bleed easily. Skin: Negative for rash. Musculoskeletal: Negative for muscle weakness and myalgias. Gastrointestinal: Negative for heartburn, nausea and vomiting. Neurological: Negative. Objective: height is 65 (165.1 cm) and weight is 172 lb (78 kg). Her blood pressure is 116/70 and her pulse is 74. Physical Exam Constitutional: She is oriented to [...] Assessment: Assessment/Plan Rachael was seen today for coronary artery disease. Diagnoses and all orders for this visit: Atrial tachycardia History of Takotsubo cardiomyopathy Essential hypertension 1. Recurrent palpitations/tachycardia, atrial tachycardia. First episode and nearly 6 years. We'll simply continue to follow for now. Patient understands if she has more frequent events to seek medical attention to get a diagnostic EKG, and also if she develops more frequent episodes we will reconsider possible antiarrhythmic orbit ablative therapies. 2. History of Takotsubo's cardio myopathy resolved by last echo 3. Hypertension controlled Joy Skinner APRN scribed portions of this dictation for Dr. Diego. I, Abebe Diego MD, personally performed the services described in [...] CENTER ORTHOPEDICS & SPORTS MEDICINE [address] [facility] [address] [place] [address] Go Zazueta MD [address] [facility] [address] [place], [place] [id number] 01/15/2025 9:45 AM EDT Office Visit [facility] [address] [facility] [address] [place] [address] Joy Skinner APRN [address] [facility] [address] [place], [place] [id number] documented as of this encounter Visit Diagnoses Diagnosis Atrial tachycardia- Primary Other specified cardiac dysrhythmias History of Takotsubo cardiomyopathy Takotsubo syndrome Essential hypertension Unspecified essential hypertension NICM (nonischemic cardiomyopathy) documented in this encounter Care Teams Chief Cloth Finishing Range Operator Relationship Specialty Start Date End Date Davis Foote MD [address] [place] [address] [place] [address] PCP - General 09/18/15 07/21/22 documented as of this encounter
--- OUTSIDE RECORDS SUMMARY | 2024-10-02 13:12 | XMS_ITS | Encounter Summary ---
Author Organization [facility] Address [address] [place] [address] Care Team Providers Care Slot Router Name Role Phone Davis Foote MD Primary Care Provider [phone] Reason for Visit * Reason Comments Med Refill Encounter Details Date Type Department Care Team (Late st Contact Info) Description 03/30/2017 Refill [facility] [address] [facility] [address] [place] [address] Kushal Silverman, BO [address] [facility] [address] [place] [address] Med Refill Social History Tobacco Use Types [...] Notes * Telephone Encounter - Vivienne Morin [facility] - 03/30/2017 1:11 PM EDT Patient last seen 02/08/17 and will follow up on 05/10/17. [facility] [place] ?? Yvonne ReyD documented in this encounter Plan of Treatment Upcoming Encounters Date Type Department Care Team (Late st Contact Info) Description 12/22/2024 9:50 AM EST Office Visit [facility] ORTHOPEDICS & SPORTS MEDICINE [address] [facility] [address] [place] [address] Go Zazueta MD [address] [facility] [address] [place], [place] [id number] 01/15/2025 9:45 AM EDT Office Visit [facility] [address] [facility] [address] [place] [address] Joy Skinner APRN [address] [facility] [address] [place], [place] [id number] documented as of this encounter Visit Diagnoses Not on filedocumented in this encounter Care Teams Slot Router Relationship Specialty Start Date End Date Davis Foote MD [address] [place] [address] [place] [address] PCP - General 09/18/15 07/21/22 documented as of this encounter
--- OUTSIDE RECORDS SUMMARY | 2024-10-02 13:12 | XMS_ITS | Encounter Summary ---
Author Organization [facility] Address [address] [place] [address] Care Team Providers Care Production Utility Worker Name Role Phone Davis Foote MD Primary Care Provider [phone] Encounter Details Date Type Department Care Team (Late st Contact Info) Description 11/27/2016 Refill [facility] CARDIOLOGY [address] [facility] [address] [place] [address] Kushal Silverman APRN [address] [facility] [address] [place] [address] Social History Tobacco Use Types [...] Telephone Encounter - Vivienne Morin RPH - 11/27/2016 11:27 AM EST Last seen 11/04/16 and will follow up on 02/08/17. Sent refills for carvedilol 3.125mg twice daily, clopidogrel 75mg daily, and pravastatin 80mg daily. Vivienne Morin PharmD documented in this encounter Plan of Treatment Upcoming Encounters Date Type Department Care Team (Late st Contact Info) Description 12/22/2024 9:50 AM EST Office Visit [facility] ORTHOPEDICS & SPORTS MEDICINE [address] [facility] [address] [place] [address] Go Zazueta MD [address] [facility] [address] [place], [place] [id number] 01/15/2025 9:45 AM EDT Office Visit [facility] C[facility]IOLOG[facility] [address] [facility] [address] [place] [address] Joy Skinner APRN [address] [facility] [address] [place], [place] [id number] documented as of this encounter Visit Diagnoses Diagnosis Takotsubo cardiomyopathy Takotsubo syndrome documented in this encounter Care Teams Production Utility Worker Relationship Specialty Start Date End Date Davis Foote MD [address] [place] [address] [place] [address] PCP - General 09/18/15 07/21/22 documented as of this encounter
--- OUTSIDE RECORDS SUMMARY | 2024-10-02 13:12 | XMS_ITS | Encounter Summary ---
Author Organization [facility] Address [address] [place] [address] Care Team Providers Care Heavy Threader Name Role Phone Davis Foote MD Primary Care Provider [phone] Encounter Details Date Type Department Care Team (Late st Contact Info) Description 01/20/2017 Telephone [facility] CARDIOLOGY [address] [place] [address] [address] [place] [address] Abigail Escalante MA Social History Tobacco Use Types Packs/Day Years [...] encounter Miscellaneous Notes * Telephone Encounter - Abigail Escalante MA - 01/25/2017 1:21 PM EDT Patient aware and verbally understands * Telephone Encounter - Joy Skinner APRN - 01/22/2017 4:02 PM EDT No new recs documented in this encounter Plan of Treatment Upcoming Encounters Date Type Department Care Team (Late st Contact Info) Description 12/22/2024 9:50 AM EST Office Visit [facility]OP[facility] & SPORTS MEDICINE 3000 [facility] 310 [place] [address] Go Zazueta MD 1760 [facility] 101 [place], [place] [id number] 01/15/2025 9:45 AM EDT Office Visit [facility] C[facility] 1720 [facility] 400 [place] [id number] Joy Skinner APRN 1720 [facility] E [facility] [address] [place] [id number] documented as of this encounter Visit Diagnoses Not on filedocumented in this encounter Care Teams Heavy Threader Relationship Specialty Start Date End Date Davis Foote MD [address] [place] [address] [place] [address] PCP - General 09/18/15 07/21/22 documented as of this encounter
--- OUTSIDE RECORDS SUMMARY | 2024-10-02 13:12 | XMS_ITS | Encounter Summary ---
Author Organization [facility] Address [address] [place] [address] Care Team Providers Care Contract Loader Name Role Phone Davis Foote MD Primary Care Provider [phone] Reason for Referral * Diagnostic Imaging (Routine) - Closed Specialty Diagnoses / Procedures Referred By Contac t Referred To Contact Diagnoses Takotsubo cardiomyopathy Coronary artery disease involving [place] coronary artery of [place] heart without angina pectoris Palpitations Procedures Adult Transthoracic Echo Complete Abebe Diego MD 1720 [facility] [address] [place] [address] Phone: tel: fax: Referral ID Status Reason Start Date Expiration Date Visits Re quested Visits Authorized [id number] Closed 12/21/2016 12/21/2017 1 1 Reason for Visit * Reason Comments Takotsubo cardiomyopathy Unstable angina Encounter Details Date Type Department Care Team (Late st Contact Info) Description 12/21/2016 9:45 AM EST Office Visit [facility] 17[address] [facility] [address] [address] [place] [address] Abebe Diego MD 1720 [facility] [address] [place] [address] Palpitations (Primary Dx); Takotsubo cardiomyopathy; Coronary artery disease involving [place] coronary artery of [place] heart without angina pectoris; Essential hypertension; Pure hypercholesterolemia Social History Tobacco Use Types Packs/Day Years [...] Reading Time Taken Comments Blood Pressure 122/78 12/21/2016 9:28 AM EST Pulse 70 12/21/2016 9:28 AM EST Temperature - - Respiratory Rate - - Oxygen Saturation - - Inhaled Oxygen Concentration - - Weight 78.7 kg (173 lb 9.6 oz) 12/21/2016 9:28 A M EST Height 167.6 cm (5' 6 ) 12/21/2016 9:28 AM EST Body Mass Index 28.02 12/21/2016 9:28 AM EST documented in this encounter Progress Notes * Abebe Diego MD - 12/21/2016 9:45 AM EST Subjective: Encounter Date:12/21/2016 Patient ID: Rachael Fleming is a 71 y.o. female. Chief Complaint: Takotsubo cardiomyopathy and Unstable angina PROBLEM LIST: 1. Cardiomyopathy. a. Initial diagnosis, 1996, with subsequent recovery. b. Recurrence with diagnosis of Takotsubo syndrome, 2007, at the [facility]. c. Recurrence 10/26/16 2. Coronary artery disease. a. August 1997, cardiac catheterization with normal coronary arteries. Normal EF. b. Cardiac catheterization, June 2008, with no significant coronary artery disease. Ejection fraction at that time 20%. c. January 2009, echocardiogram with ejection fraction of 55 +/- 5%. d. LHC 10/26/16: Takotsubo/stress-induced cardiomyopathy with severe LV systolic [...] Right breast resection. History of Present Illness Patient returns today for follow up with a history of cardiomyopathy and CAD. Since last visit had an episode of palpitations after having an argument with her daughter. Chest pain occurred along with symptoms, after which she was hospitalized, found to be an exacerbaion of her cardiomyopathy, acute PA was ruled out. Since discharge she continues to feel fatigue and generalized weakness. Monitorsher blood pressure at home, readings are usually in the 100's- 120's systolic. Denies any exertionalsymptoms, shortness of breath, orthopnea, PND, or palpitations. Remains busy and active, exercise tolerance is improving. Allergies Allergen Reactions ??? Penicillins Hives ??? Phenergan [Promethazine Hcl] Hives ??? Statins Myalgia ??? Sudafed [Pseudoephedrine Hcl] Rash ??? Sulfa Antibiotics Rash Current Outpatient Prescriptions: ??? ALPRAZolam (XANAX) 0.25 MG tablet, Take 0.25 mg by mouth At Night As Needed for anxiety., Disp:, Rfl: ??? aspirin 81 MG EC tablet, Take 81 mg by mouth Daily., Disp: , Rfl: ??? azithromycin (ZITHROMAX) 250 MG tablet, Take 250 mg by mouth Daily. Take 2 tablets the first day, then 1 tablet daily for 4 days., Disp: , Rfl: ??? carvedilol (COREG) 3.125 MG tablet, Take 1 tablet by mouth Every 12 (Twelve) Hours., Disp: 60 tablet, Rfl: 3 ??? clopidogrel (PLAVIX) 75 MG tablet, Take 1 tablet by mouth Daily., Disp: 30 tablet, Rfl: 3 ??? HYDROCODONE-CHLORPHENIRAMINE PO, Take by mouth As Needed. Pt takes 1/2 teaspoon at bedtime, Disp: , Rfl: ??? losartan-hydrochlorothiazide (HYZAAR) 50-12.5 MG per tablet, [...] nausea and vomiting. Neurological: Negative. Objective: Vitals: 12/21/16 0928 BP: 122/78 BP Location: Right arm Patient Position: Sitting Pulse: 70 Weight: 173 lb 9.6 oz (78.7 kg) Height: 66 (167.6 cm) Physical Exam [...] warm and dry. No rash noted. Lab review 10/26/16: BMP,Glu 106 otherwise WNL. Trops 4.120 CBC, UA, BNP are all WNL. Procedures Assessment: Rachael was seen today for takotsubo cardiomyopathy and unstable angina. Diagnoses and all orders for this visit: Palpitations Takotsubo cardiomyopathy Coronary artery disease involving [place] coronary artery of [place] heart without angina pectoris Essential hypertension Impression 1. Recurrent Takotsubo's cardiomyopathy. 2. Coronary artery disease, mild nonflow limiting 3. Hypertension controlled 4. Dyslipidemia tolerating statin Plan: 1. Redo an echo today to reevaluate cardiac function. 2. Increase Coreg to 6.25 mg twice a day. 3. Continued cardiovascular rehabilitation 4. Continue all other current medications. 5. Revisit in 6 MO, or sooner as needed. Scribed for Abebe Diego MD by Joey Gutierrez. 12/21/2016 9:37 AM I, Abebe Diego MD, personally performed the [...] [facility] 3000 [facility] 310 [place] [address] Go Zazueta MD 1760 [facility] [address] [place], [place] [id number] 01/15/2025 9:45 AM EDT Office Visit [facility] 1720 [facility] 400 [place] [address] Joy Skinner, RECREATION ENGINEER [address] [place] [address] documented as of this encounter Procedures Procedure Name Priority Date/Time Associated Diagnosis Comments ECHO COMPLETE W/ DOPPLER AND COLOR FLOW Routine 12/21/2016 2:25 PM EST Takotsubo cardiomyopathy Coronary artery disease involving [place] coronary artery of [place] heart without angina pectoris Palpitations documented in this encounter Results * ECHO COMPLETE W/ DOPPLER AND COLOR FLOW (12/21/2016 2:25 PM EST) BSA 1.9 m^2 EMC RAD RVIDd 2.5 cm EMC RAD IVSd 0.77 cm EMC RAD LVIDd 4.4 cm EMC RAD LVIDs 2.1 cm EMC RAD LVPWd 0.88 cm EMC RAD IVS/LVPW 0.87 EMC RAD FS 52.2 % EMC RAD EDV(Teich) 86.3 ml EMC RAD ESV(Teich) 14.2 ml EMC RAD EF(Teich) 83.6 % EMC RAD EDV(cubed) 83.4 ml EMC RAD ESV(cubed) 9.1 ml EMC RAD EF(cubed) 89.1 % EMC RAD LV mass(C)d 113.3 grams EMC RAD LV mass(C)dI 60.2 grams/m^2 EMC RAD SV(Teich) 72.1 ml EMC RAD SI(Teich) 38.3 ml/m^2 EMC RAD SV(cubed) 74.3 ml EMC RAD SI(cubed) 39.5 ml/m^2 EMC RAD Ao root diam 2.6 cm EMC RAD Ao root area 5.2 cm^2 EMC RAD LA dimension (2D) 3.4 cm EMC RAD LA/Ao 1.3 EMC RAD LVOT diam 2.0 cm EMC RAD LVOT area 3.0 cm^2 EMC RAD LVOT area(traced) 3.1 cm^2 EMC RAD LVLd ap4 7.8 cm EMC RAD EDV(MOD-sp4) 95.0 ml EMC RAD LVLs ap4 6.4 cm EMC RAD ESV(MOD-sp4) 36.0 ml EMC RAD EF(MOD-sp4) 62.1 % EMC RAD LVLd ap2 7.6 cm EMC RAD EDV(MOD-sp2) 75.0 ml EMC RAD LVLs ap2 6.0 cm EMC RAD ESV(MOD-sp2) 32.0 ml EMC RAD EF(MOD-sp2) 57.3 % EMC RAD SV(MOD-sp4) 59.0 ml EMC RAD SVi(MOD-SP4) 31.4 ml/m^2 EMC RAD SV(MOD-sp2) 43.0 ml EMC RAD SVi(MOD-SP2) 22.9 ml/m^2 EMC RAD Ao root area (BSA corrected) 1.4 EMC RAD EF - Contrast (2Ch) 57.3 ml/m^2 EMC RAD EF - Contrast (4Ch) 62.1 ml/m^2 EMC RAD LV Cassidy Vol (BSA corrected) 50.5 ml/m^2 EMC RAD LV Sys Vol (BSA corrected) 19.1 ml/m^2 EMC RAD MV E max lisandro 74.0 cm/sec EMC RAD MV A max lisandro 105.1 cm/sec EMC RAD MV E/A 0.7 EMC RAD MV dec time 0.23 sec EMC RAD Ao pk lisandro 129.2 cm/sec EMC RAD Ao max PG 6.7 mmHg EMC RAD Ao max PG (full) 0.83 mmHg EMC RAD Ao V2 mean 84.5 cm/sec EMC RAD Ao mean PG 3.3 mmHg EMC RAD Ao mean PG (full) 0.5 mmHg EMC RAD Ao V2 VTI 28.3 cm EMC RAD RIK(I,A) 2.6 cm^2 EMC RAD RIK(I,D) 2.6 cm^2 EMC RAD RIK(V,A) 2.8 cm^2 EMC RAD RIK(V,D) 2.8 cm^2 EMC RAD LV V1 max PG 5.8 mmHg EMC RAD LV V1 mean PG 2.8 mmHg EMC RAD LV V1 max 120.9 cm/sec EMC RAD LV V1 mean 78.8 cm/sec EMC RAD LV V1 VTI 24.4 cm EMC RAD SV(Ao) 148.0 ml EMC RAD SI(Ao) 78.7 ml/m^2 EMC RAD SV(LVOT) 73.3 ml EMC RAD SI(LVOT) 39.0 ml/m^2 EMC RAD PA V2 max 136.8 cm/sec EMC RAD PA max PG 7.5 mmHg EMC RAD PA acc slope 518.7 cm/sec^2 EMC RAD PA acc time 0.14 sec EMC RAD PI end-d lisandro 93.3 cm/sec EMC RAD PA pr(Accel) 15.6 mmHg EMC RAD CV ECHO ISSAC - BZI_BMI 27.9 kilograms/m ^2 EMC RAD CV ECHO ISSAC - BSA(HAYCOCK) 1.9 m^2 EMC RAD CV ECHO ISSAC - BZI_METRIC_WEIG HT 78.5 kg EMC RAD CV ECHO ISSAC - BZI_METRIC_HEIG HT 167.6 cm EMC RAD RV S' 16.00 cm/sec EMC RAD RV Base 3.60 cm EMC RAD RV Length 6.80 cm EMC RAD RV Mid 3.50 cm EMC RAD LA ESV (BP) 39.0 cm3 EMC RAD E/E' ratio 7.2 EMC RAD LA ESV Index (BP) 20.7 mL/m2 EMC RAD Lat Peak E' Lisandro 10.8 cm/sec EMC RAD Med Peak E' Lisandro 9.70 cm/sec EMC RAD TAPSE (>1.6) 2.10 cm2 EMC RAD Echo EF Estimated 55 % EMC RAD Anatomical Region Laterality Modality Ultrasound 12/21/2016 1:22 PM EST Narrative 12/21/2016 5:49 PM EST ?? Left ventricular function is normal. Estimated EF = 55%. ?? The cardiac valves are anatomically and functionally normal. Left Ventricle Left ventricular function is normal. Calculated EF = 62.1%. Estimated EF appears to be in the range of 56 - 60%. Estimated EF = 55%. Normal left ventricular cavity size and wall thickness noted. All left ventricular wall segments contract normally. Septal wall motion is normal. Left ventricular diastolic function is normal. Right Ventricle Normal cavity size, wall thickness, systolic function and septal motion noted. No evidence of a right ventricular thrombus present. No evidence of a right ventricular mass present. Left Atrium Normal left atrial size and volume noted. No evidence of a left atrial thrombus present. No evidence of a left atrial mass present. Right Atrium Normal right atrial size noted. The inferior vena cava is normally sized. Normal IVC inspiratory collapse of greater than 50% noted. Mitral Valve The mitral valve is normal in structure. Trace mitral valve regurgitation is present. Tricuspid Valve The tricuspid valve is normal. No tricuspid valve stenosis is present. No tricuspid valve regurgitation is present. Aortic Valve The aortic valve is structurally normal. No aortic valve regurgitation is present. No aortic valve stenosis is present. Pulmonic Valve The pulmonic valve is structurally normal. There is no significant pulmonic valve stenosis present. There is [id number] pulmonic valve regurgitation present. Pericardium The pericardium is normal. There is no evidence of pericardial effusion. Additional Study Details A two-dimensional transthoracic echocardiogram with color flow and Doppler was performed. The study is technically adequate for diagnosis. Greater Vessels No dilation of the aortic root is present. No dilation of the sinuses of Valsalva is present. The inferior vena cava is normally sized. Normal IVC inspiratory collapse of greater than 50% noted. us Abebe Diego MD CV ECHO ORDERABLES Final Resul t documented in this encounter Visit Diagnoses Diagnosis Palpitations- Primary Takotsubo cardiomyopathy Takotsubo syndrome Coronary artery disease involving [place] coronary artery of [place] heart without angina pectoris Essential hypertension Unspecified essential hypertension Pure hypercholesterolemia documented in this encounter Care Teams Contract Loader Relationship Specialty Start Date End Date Davis Foote MD [address] [place] [address] [place] [address] PCP - General 09/18/15 07/21/22 documented as of this encounter
--- OUTSIDE RECORDS SUMMARY | 2024-10-02 13:12 | XMS_ITS | Encounter Summary ---
Author Organization [facility] Address [address] [place] [address] Care Team Providers Care Community Service Representative Name Role Phone Davis Foote MD Primary Care Provider [phone] Reason for Visit * Diagnostic Imaging (Routine) - Closed Specialty Diagnoses / Procedures Referred By Contac t Referred To Contact Diagnoses Takotsubo cardiomyopathy Coronary artery disease involving [place] coronary artery of [place] heart without angina pectoris Palpitations Procedures Adult Transthoracic Echo Complete Abebe Diego MD [facility] [facility] [address] [place] [address] Phone: tel: fax: Referral ID Status Reason Start Date Expiration Date Visits Re quested Visits Authorized [id number] Closed 12/21/2016 12/21/2017 1 1 Encounter Details Date Type Department Care Team (Late st Contact Info) Description 12/21/2016 1:16 PM EST - 12/21/2016 11:59 PM [facility] Hospital Encounter [facility] NONINVASIVE LAB [address] [place] [address] Abebe Diego MD [address] [facility] [address] [place] [address] Discharge Disposition: Home or Self Care Social [...] Needed for Anxiety (0.5 tablet PRN). 2 azithromycin (ZITHROMAX) 250 MG tablet Take 250 mg by mouth Daily. Take 2 tablets the first day, then 1 tablet daily for 4 days. 7 carvedilol (COREG) 6.25 MG tabletIndications:Ta kotsubo cardiomyopathy Take 1 tablet by mouth Every 12 (Twelve) Hours. 180 tablet 3 12/21/2016 7 clopidogrel (PLAVIX) 75 MG tablet Take 1 tablet by mouth Daily. 30 tablet 3 11/27/2016 7 HYDROCODONE-CHLORPHE NIRAMINE PO Take by mouth As Needed. Pt takes 1/2 teaspoon at bedtime 7 losartan-hydrochloro thiazide (HYZAAR) 50-12.5 MG per tabletIndications:Es sential hypertension,NICM (nonischemic cardiomyopathy) Take 1 tablet by mouth Daily. 30 tablet 3 11/04/2016 7 nitroglycerin (NITROSTAT) 0.[address] 0.4 mg under the tongue Every 5 (Five) Minutes As Needed for chest pain. Take no more than 3 doses in 15 minutes. 7 omeprazole (priLOSEC) 40 MG capsule Take 40 mg by mouth Daily. 7 pravastatin (PRAVACHOL) 80 MG tablet Take 1 tablet by mouth Every Night. 30 tablet 3 11/27/2016 7 zolpidem (AMBIEN) 10 MG tablet Take 5 mg by mouth At Night As Needed for sleep. 1 documented as of this encounter Plan of Treatment Upcoming Encounters Date Type Department Care Team (Late st Contact Info) Description 12/22/2024 9:50 AM EST Office Visit [facility] ORTHOPEDICS & SPORTS MEDICINE 3000 [facility] [address] [place] [address] Go Zazueta MD 1760 [facility] [address] [place] [address] 01/15/2025 9:45 AM EDT Office Visit [facility] CARDIOLOGY [address] [place] [address] Joy Skinner APRN [address] [place] [address] documented as of this encounter Procedures Procedure Name Priority Date/Time Associated Diagnosis Comments ECHO COMPLETE W/ DOPPLER AND COLOR FLOW Routine 12/21/2016 2:25 PM EST Takotsubo cardiomyopathy Coronary artery disease involving [place] coronary artery of [place] heart without angina pectoris Palpitations documented in [...] significant pulmonic valve stenosis present. There is [id number] pulmonic valve regurgitation present. Pericardium The pericardium [...] t documented in this encounter Visit Diagnoses Not on filedocumented in this encounter Care Teams Community Service Representative Relationship Specialty Start Date End Date Davis Foote MD [address] [place] [address] [place] [address] PCP - General 09/18/15 07/21/22 documented as of this encounter
--- OUTSIDE RECORDS SUMMARY | 2024-10-02 13:12 | XMS_ITS | Encounter Summary ---
Author Organization [facility] Address [address] [place] [address] Care Team Providers Care Deputy Fire Marshal Name Role Phone Davis Foote MD Primary Care Provider [phone] Encounter Details Date Type Department Care Team (Late st Contact Info) Description 11/19/2016 Documentation [facility] C[facility]IOLOG[facility] [address] [facility] [address] [place] [address] Kushal Silverman, BO 1720 [facility] [address] [place] [address] Social History Tobacco Use Types [...] Progress Notes * Kushal Silverman APRN - 11/19/2016 11:49 AM EST Received and reviewed lab results completed on 11/13/2016 in [facility]: Glucose 119, BUN 18, creatinine 0.7, sodium 138, potassium 4.6, chloride 101, carbon dioxide 25, calcium 9.9 Lipid panel: Total cholesterol 164, triglycerides 91, HDL 65, LDL 80 TSH 0.66, T4 1.34 BNP 95.8 Copy of labs to scanned into epic under last visit on 11/04/18 documented in this encounter Plan of Treatment Upcoming Encounters Date Type Department Care Team (Late st Contact Info) Description 12/22/2024 9:50 AM EST Office Visit [facility] ORTHOPEDICS & SPORTS MEDICINE 3000 [facility] [address] [place] [address] Go Zazueta MD 1760 [facility] 101 [place], [place] [id number] 01/15/2025 9:45 AM EDT Office Visit [facility] CARDIOLOG[facility] 17[address] [facility] [address] [place] [address] Joy Skinner APRN 1720 [facility] E [facility] 400 [place], [place] [id number] documented as of this encounter Visit Diagnoses Not on filedocumented in this encounter Care Teams Deputy Fire Marshal Relationship Specialty Start Date End Date Davis Foote MD [address] [place] [address] [place] [address] PCP - General 09/18/15 07/21/22 documented as of this encounter
--- OUTSIDE RECORDS SUMMARY | 2024-10-02 13:12 | XMS_ITS | Encounter Summary ---
Author Organization [facility] Address [address] [place] [address] Care Team Providers Care Music Arranger Name Role Phone Davis Foote MD Primary Care Provider [phone] Reason for Visit * Reason Comments Med Refill Encounter Details Date Type Department Care Team (Late st Contact Info) Description 03/17/2017 Refill [facility] CARDIOLOGY 1720 [facility] [address] [place] [address] Kushal Silverman, BO 1720 [facility] [address] [place] [address] Med Refill Social History Tobacco Use Types [...] Miscellaneous Notes * Telephone Encounter - Vivienne Morin, [facility] - 03/17/2017 1:18 PM EDT Patient last seen 02/08/17 and will follow up on 05/10/17. Refills for carvedilol, losartan/hctz, andpravastatin sent to [facility] Kian antony [place]. Vivienne Mikel, PharmD documented in this encounter Plan of Treatment Upcoming Encounters Date Type Department Care Team (Late st Contact Info) Description 12/22/2024 9:50 AM EST Office Visit [facility] OR[facility]OPEDICS & [facility]ORTS MEDICINE 3000 [facility] [address] [place] [address] Go Zazueta MD 1760 [facility] [address] [place] [id number] 01/15/2025 9:45 AM EDT Office Visit [facility] CARDIOLOGY 1720 [facility] 400 [place] [address] Joy Skinner APRN 1720 [facility] [address] [place] [id number] documented as of this encounter Visit Diagnoses Diagnosis Takotsubo cardiomyopathy Takotsubo syndrome Essential hypertension Unspecified essential hypertension NICM (nonischemic cardiomyopathy) documented in this encounter Care Teams Music Arranger Relationship Specialty Start Date End Date Davis Foote MD [address] [place] [address] [place] [address] PCP - General 09/18/15 07/21/22 documented as of this encounter
--- OUTSIDE RECORDS SUMMARY | 2024-10-02 13:13 | XMS_ITS | Encounter Summary ---
[facility] Address [address] [place] [id number] Care Team Providers Care Red Cap Name Role Phone Davis Foote MD Primary Care Provider [phone] Reason for Visit * Auth/Cert Specialty Diagnoses / Procedures Referred By Contac t Referred To Contact Diagnoses Non-STEMI (non-ST elevated myocardial infarction) NSTEMI (non-ST elevated myocardial infarction) CP Procedures Left Heart Cath Referral ID Status Reason Start Date Expiration Date Visits Re quested Visits Authorized [id number] 1 Encounter Details Date Type Department Care Team (Late st Contact Info) Description 10/26/2016 4:35 AM EST - 10/26/2016 5:35 AM EST Surgery [facility] [address] [place] [id number] Lisa Bhatt MD [address] [facility] [address] [place] [address] Left Heart Cath Social History Tobacco Use Types Packs/Day Years Used Date Smoking Tobacco: Never Tobacco Cessation:Counseling Given: No Alcohol Use Standard Drinks/Week Comments No 0 (1 standard drink = 0.6 oz pur e alcohol) Comments Unknown Sex and Gender Information Value Date Recorded Sex Assigned at Not on file Legal Sex Female 10:27 AM EDT Gender Identity Not on file Sexual Orientation Not on file documented as of this encounter Last Filed Vital Signs Vital Sign Reading Time Taken Comments Blood Pressure 102/71 10/26/2016 2:35 AM EST Pulse 102 10/26/2016 2:35 AM EST Temperature 36.4 ??C (97.5 ??F) 10/26/2016 12:[address] Respiratory Rate 18 10/26/2016 12:08 AM EST Oxygen Saturation 99% 10/26/2016 2:00 AM EST Inhaled Oxygen Concentration - - Weight 81.2 kg (179 lb) 10/26/2016 2:47 AM EST Height 167.6 cm (5' 6 ) 10/26/2016 12:10 AM EST Body Mass Index 28.89 10/27/2016 2:26 PM EST documented in this encounter Discharge Summaries * Sue Vincent, DANCE DIRECTOR - 10/28/2016 12:31 PM EST Images from the original note were not included. [facility] Medicine Services DISCHARGE SUMMARY Date of Admission: 10/26/2016 Date of Discharge: 10/28/2016 Primary Care Physician: Davis Foote MD Discharge Diagnoses: Active Hospital Problems ( Indicates Principal Problem) Diagnosis Date Noted ??? Non-STEMI (non-ST elevated myocardial infarction) [I21.4] 10/26/2016 ??? Takotsubo cardiomyopathy [I51.81] 10/26/2016 ??? Unstable angina [I20.0] 10/26/2016 ??? DONNA (obstructive sleep apnea) [G47.33] 10/26/2016 ??? Hypertension, however hypotensive since admit with NSTEMI [I10] 10/26/2016 Resolved Hospital Problems Diagnosis Date Noted Date Resolved No resolved problems to display. Presenting Problem/History of Present Illness Non-STEMI (non-ST elevated myocardial infarction) [I21.4] NSTEMI (non-ST elevated myocardial infarction) [I21.4] Chief Complaint on Day of Discharge: Hospital follow up History of Present Illness on Day of Discharge: Denies CP/SOB No n/v/d Hospital Course Patient is a 71 y.o. female presented with chest pain that started during a stressful [employer] gathering. She presented to an outside hospital and was found to have an elevated troponin she was ruled in for NSTEMI ransferred to our facility for further evaluation and treatment. Patient's significant past medical history includes cardiomyopathy, initially diagnosed in 1996 with recovery, then a recurrence in 2007 and was diagnosed with Takotsubo at [place]. Her EF at that time was 20%, but she again recovered and had a normal EF with her most recent Echo earlier this year. She underwent a myocardial perfusion study as well which was negative. ?? Cardiology was consulted, left heart cath was performed, results below. Patient was also noted to be hypotensive on admission and gil/arb as well asdiuretics will be held at discharge and these can be restarted as necessary. Repeat echo shows improvement in her EF. Patient has continued to show improvement and is felt to be stable and ready for d ischarge on 10/28/2016 she is to follow-up with Dr. Diego in 4-6 weeks with repeat echo in 2-3 weeks. She is to follow-up with her primary care provider in one week Procedures Performed Procedure(s): Left Heart Cath ?? Takotsubo/stress induced cardiomyopathy with severe left ventricular systolic dysfunction, estimated ejection fraction 20%. ?? Near-normal coronary arteries. Consults: Consults Date and Time Order Name Status Description 10/26/2016 0255 Inpatient Consult to Cardiology Completed Pertinent Test Results: Component Latest Ref Rng 10/26/2016 10/27/2016 WBC 3.50 - 10.80 10*3/mm3 13.48 (H) 8.96 RBC 3.89 - 5.14 10*6/mm3 4.23 3.89 Hemoglobin 11.5 - 15.5 g/dL 12.2 11.6 Hematocrit 34.5 - 44.0 % 36.3 33.7 (L) MCV 80.0 - 99.0 fL 85.8 86.6 MCH 27.0 - 31.0 pg 28.8 29.8 MCHC 32.0 - 36.0 g/dL 33.6 34.4 RDW 11.3 - 14.5 % 12.6 12.8 RDW-SD 37.0 - 54.0 fl 39.1 40.8 MPV 6.0 - 12.0 fL 9.8 9.7 Platelets 150 - 450 10*3/mm3 370 276 Neutrophil % 41.0 - 71.0 % 70.8 Lymphocyte % 24.0 - 44.0 % 18.9 (L) Monocyte % 0.0 - 12.0 % 9.8 Eosinophil % 0.0 - 3.0 % 0.3 Basophil % 0.0 - 1.0 % 0.1 Immature Grans % 0.0 - 0.6 % 0.1 Neutrophils, Absolute 1.50 - 8.30 10*3/mm3 9.53 (H) Lymphocytes, Absolute 0.60 - 4.80 10*3/mm3 2.55 Monocytes, Absolute 0.00 - 1.00 10*3/mm3 1.32 (H) Eosinophils, Absolute 0.10 - 0.30 10*3/mm3 0.04 (L) Basophils, Absolute 0.00 - 0.20 10*3/mm3 0.02 Immature Grans, Absolute 0.00 - 0.03 10*3/mm3 0.02 Glucose 70 - 100 mg/dL 130 (H) 106 (H) BUN 9 - 23 mg/dL 22 10 Creatinine 0.60 - 1.30 mg/dL 0.70 0.50 (L) Sodium 132 - 146 mmol/L 138 135 Potassium 3.5 - 5.5 mmol/L 4.2 3.9 Chloride 99 - 109 mmol/L 103 104 CO2 20.0 - 31.0 mmol/L 27.0 27.0 Calcium 8.7 - 10.4 mg/dL 9.5 9.1 Total Protein 5.7 - 8.2 g/dL 7.0 Albumin 3.20 - 4.80 g/dL 4.20 ALT (SGPT) 7 - 40 U/L 20 AST (SGOT) 0 - 33 U/L 30 Alkaline Phosphatase 25 - 100 U/L 80 Total Bilirubin 0.3 - 1.2 mg/dL 0.4 eGFR Non Amer >60 mL/min/1.73 83 122 Globulin gm/dL 2.8 A/G Ratio 1.5 - 2.5 g/dL 1.5 BUN/Creatinine Ratio 7.0 - 25.0 31.4 (H) 20.0 Anion Gap 3.0 - 11.0 mmol/L 8.0 4.0 Magnesium 1.3 - 2.7 mg/dL 1.8 BNP 0.0 - 100.0 pg/mL 61.0 Component Latest Ref Rng 10/26/2016 10/26/2016 10/26/2016 12:41 AM 5:40 AM 2:37 PM Troponin I <=0.040 ng/mL 3.426 (HH) 4.248 (HH) 4.120 () ECHO: ?? Left ventricular function is mildly decreased. Estimated EF = 41%. ?? The findings are consistent with stress-induced (Takotsubo) cardiomyopathy. ?? Mild mitral valve regurgitation is present ?? Mild tricuspid valve regurgitation is present. Condition on Discharge: stable Physical Exam on Discharge: Visit Vitals ??? BP 102/72 ??? Pulse 87 ??? Temp 98.1 ??F (36.7 ??C) (Oral) ??? Resp 18 ??? Ht 66 (167.6 cm) ??? Wt 179 lb (81.2 kg) ??? SpO2 94% ??? BMI 28.89 kg/m2 Physical Exam Constitutional: She is oriented to person, place, and time. She appears well- developed and well-nourished. No distress. HENT: Head: Normocephalic. Mouth/Throat: Oropharynx is clear and moist. Cardiovascular: Normal rate. Exam reveals no gallop and no friction rub. No murmur heard. Pulmonary/Chest: Effort normal and breath sounds normal. No respiratory distress. Abdominal: Soft. Bowel sounds are normal. She exhibits no distension. Musculoskeletal: She exhibits no edema. Neurological: She is alert and oriented to person, place, and time. Skin: Skin is warm and dry. Psychiatric: She has a normal mood and affect. Vitals reviewed. Discharge Disposition Home or Self Care Discharge Medications Rachael Fleming Home Medication Instructions ANNIE:[id number] Printed on:10/28/16 3389 Medication Information ALPRAZolam (XANAX) 0.25 MG tablet Take 0.25 mg by mouth At Night As Needed for anxiety. aspirin 81 MG EC tablet Take 81 mg by mouth Daily. carvedilol (COREG) 3.125 MG tablet Take 1 tablet by mouth Every 12 (Twelve) Hours. ---only hold if SBP 80's--- clopidogrel (PLAVIX) 75 MG tablet Take 1 tablet by mouth Daily. nitroglycerin (NITROSTAT) 0.[address] 0.4 mg under the tongue Every 5 (Five) Minutes As Needed for chest pain. Take no more than 3 doses in 15 minutes. omeprazole (priLOSEC) 40 MG capsule Take 40 mg by mouth Daily. pravastatin (PRAVACHOL) 80 MG tablet Take 1 tablet by mouth Every Night. zolpidem (AMBIEN) 10 MG tablet Take 5 mg by mouth At Night As Needed for sleep. Discharge Diet: Diet Instructions Diet: Regular, Consistent Carbohydrate, Cardiac; Thin Liquids, No Restrictions Discharge Diet: Regular Consistent Carbohydrate Cardiac Fluid Consistency: Thin Liquids, No Restrictions Discharge Care Plan / Instructions: Activity at Discharge: Activity Instructions Activity as Tolerated Follow-up Appointments Future Appointments Date Time Provider Department Center 12/21/2016 9:45 AM Abebe Diego MD E [facility] None Referrals and Follow-ups to Schedule Follow-Up As directed Dr. Diego Follow Up Details: 4-6 weeks Sue Vincent APRN 10/28/16 1:07 PM Time: Discharge 35 min Please note that portions of this note may have been completed with a voice recognition program. Efforts were made to edit the dictations, but occasionally words are mistranscribed. Cosigned by Harika Zacarias MD at 10/28/2016 2:45 PM EST documented in this encounter Discharge Instructions * Attachments The following attachments cannot be sent through Care Everywhere. * CARDIOMYOPATHY (LUXEMBOURGER) * MYOCARDIAL INFARCTION (LUXEMBOURGER) * ANGIOGRAM (LUXEMBOURGER) * RADIAL SITE CARE (LUXEMBOURGER) * SMOKING CESSATION (LUXEMBOURGER) * CARDIAC DIET (LUXEMBOURGER) * CARVEDILOL TABLETS (LUXEMBOURGER) * PRAVASTATIN TABLETS (LUXEMBOURGER) * CLOPIDOGREL TABLETS (LUXEMBOURGER) * HEART FAILURE (LUXEMBOURGER) documented in this encounter Medications at Time of Discharge aspirin 81 MG EC tablet Take 1 tablet by mouth Daily. ALPRAZolam (XANAX) 0.25 MG tablet Take 0.25 mg by mouth At Night As Needed for Anxiety (0.5 tablet PRN). 2 carvedilol (COREG) 3.125 MG tabletIndications:Ta kotsubo cardiomyopathy Take 1 tablet by mouth Every 12 (Twelve) Hours. 60 tablet 10/28/2016 7 clopidogrel (PLAVIX) 75 MG tablet Take 1 tablet by mouth Daily. 30 tablet 10/28/2016 7 nitroglycerin (NITROSTAT) 0.[address] 0.4 mg under the tongue Every 5 (Five) Minutes As Needed for chest pain. Take no more than 3 doses in 15 minutes. 7 omeprazole (priLOSEC) 40 MG capsule Take 40 mg by mouth Daily. 7 pravastatin (PRAVACHOL) 80 MG tablet Take 1 tablet by mouth Every Night. 30 tablet 10/28/2016 7 zolpidem (AMBIEN) 10 MG tablet Take 5 mg by mouth At Night As Needed for sleep. 1 documented as of this encounter Progress Notes * Vilma eD La Cruz MD - 10/28/2016 8:09 AM EST [facility] Inpatient Progress Note LOS: 2 days Patient Care Team: Davis Foote MD as PCP - General Davis Foote MD as PCP - Family Medicine Chief Complaint: Follow-up for NICM/Takotsubo Subjective Interval History: Feels much better today. No chest pain or dyspnea. States that she has been ambulating in the [facility]. BPs 90-110, HR continues 100s History taken from: patient Review of Systems: Pertinent positives noted in history, exam, and assessment. Otherwise reviewed and negative. Objective Vitals: Blood pressure 101/71, pulse 101, temperature 98.1 ??F (36.7 ??C), temperature source Oral, resp. rate 16, height 66 (167.6 cm), weight 179 lb (81.2 kg), SpO2 94 %. Intake/Output Summary (Last 24 hours) at 10/28/16 0809 Last data filed at 10/27/16 1300 Gross per 24 hour Intake 720 ml Output 0 ml Net 720 ml Physical Exam Constitutional: She is oriented to person, place, and time. She appears well- developed and well-nourished. No distress. HENT: Head: Normocephalic and atraumatic. Cardiovascular: Regular rhythm and normal heart sounds. Tachycardia present. Left radial access site is benign Pulmonary/Chest: Effort normal and breath sounds normal. No respiratory distress. Musculoskeletal: She exhibits no edema. Neurological: She is alert and oriented to person, place, and time. Skin: Skin is warm and dry. Results Review: I reviewed the patient's new clinical results. Results from last 7 days Lab Units 10/27/16 0526 WBC 10*3/mm3 8.96 HEMOGLOBIN g/dL 11.6 HEMATOCRIT % 33.7* PLATELETS 10*3/mm3 276 Results from last 7 days Lab Units 10/27/16 0526 10/26/16 0041 SODIUM mmol/L 135 138 POTASSIUM mmol/L 3.9 4.2 CHLORIDE mmol/L 104 103 TOTAL CO2 mmol/L 27.0 27.0 BUN mg/dL 10 22 CREATININE mg/dL 0.50* 0.70 CALCIUM mg/dL 9.1 9.5 BILIRUBIN mg/dL -- 0.4 ALK PHOS U/L -- 80 ALT (SGPT) U/L -- 20 AST (SGOT) U/L -- 30 GLUCOSE mg/dL 106* 130* Results from last 7 days Lab Units 10/27/16 05 SODIUM mmol/L 135 POTASSIUM mmol/L 3.9 CHLORIDE mmol/L 104 TOTAL CO2 mmol/L 27.0 BUN mg/dL 10 CREATININE mg/dL 0.50* GLUCOSE mg/dL 106* CALCIUM mg/dL 9.1 Results from last 7 days Lab Units 10/26/16 0041 INR 0.97 0 Lab Value Date/Time TROPONINI 4.120 (C) 10/26/2016 1437 TROPONINI 4.248 (C) 10/26/2016 0540 TROPONINI 3.426 (C) 10/26/2016 0041 ECHO- Pending Tele: SR-ST Assessment/Plan Principal Problem: Non-STEMI (non-ST elevated myocardial infarction) Active Problems: Takotsubo cardiomyopathy Unstable angina DONNA (obstructive sleep apnea) Hypertension, however hypotensive since admit with NSTEMI 1. Takotsubo Cardiomyopathy/NICM- EF 20% by LV gram S/p LHC with normal coronary arteries ECHO with improving EF 40's. Plan outpt echo in 3-4 weeks. 2. HTN- now borderline hypotension yesterday and today. Received doses of coreg , at home only holdif SBP 80's. Hold acei/arb unless BP needs as outpt. 3. DONNA Plan: DC home FU echo 3-[address] Diego otherwise 4-6 weeks Joy Skinner, BO 10/28/16 8:09 AM Please note that portions of this note may have been completed with a voice recognition program. Efforts were made to edit the dictations, but occasionally words are mistranscribed. * Leydi Urrutia MD - 10/27/2016 1:13 PM EST Images from the original note were not included. [facility] Medicine Services INPATIENT PROGRESS NOTE Date of Admission: 10/26/2016 Length of Stay: 1 Primary Care Physician: Davis Foote MD Subjective Chief Complaint: Chest pain HPI: Patient denies episodes of chest pain today. She states that she feels markedly improved from time of presentation. Still noting some low blood pressures compared to patient's baseline, she only feels symptomatic when she goes from sitting to standing but says that she takes it easy . Patient states by her home blood pressure cuff her systolics typically run in the upper 140s. Review Of Systems: Review of Systems Constitutional: Positive for fatigue. Respiratory: Negative for chest tightness and shortness of breath. Cardiovascular: Negative for chest pain, palpitations and leg swelling. Gastrointestinal: Negative for nausea. Neurological: Positive for light-headedness. All other systems reviewed and are negative. Objective Temp: [97.4 ??F (36.3 ??C)-98.4 ??F (36.9 ??C)] 97.4 ??F (36.3 ??C) Heart Rate: [90-112] 94 Resp: [18] 18 BP: (87-103)/(62-71) 94/63 Physical Exam Temp: [97.4 ??F (36.3 ??C)-98.4 ??F (36.9 ??C)] 97.4 ??F (36.3 ??C) Heart Rate: [90-112] 94 Resp: [18] 18 BP: (87-103)/(62-71) 94/63 Constitutional: no acute distress, awake, alert, MM moist Respiratory: Clear to auscultation bilaterally, nonlabored respirations Cardiovascular: RRR, no murmurs, rubs, or gallops, palpable pedal pulses bilaterally Gastrointestinal: Positive bowel sounds, soft, nontender, nondistended Musculoskeletal: No bilateral ankle edema Psychiatric: oriented x 3, appropriate affect, cooperative Neurologic: Strength symmetric in all extremities Results Review: I have reviewed the labs, radiology results and diagnostic studies. Results from last 7 days Lab Units 10/27/16 0526 WBC 10*3/mm3 8.96 HEMOGLOBIN g/dL 11.6 PLATELETS 10*3/mm3 276 Results from last 7 days Lab Units 10/27/16 0526 SODIUM mmol/L 135 POTASSIUM mmol/L 3.9 TOTAL CO2 mmol/L 27.0 CREATININE mg/dL 0.50* GLUCOSE mg/dL 106* Culture Data: Radiology Data: I have reviewed the medications. Assessment/Plan Assessment/Problem List Principal Problem: Non-STEMI (non-ST elevated myocardial infarction) Active Problems: Takotsubo cardiomyopathy Unstable angina DONNA (obstructive sleep apnea) Hypertension, however hypotensive since admit with NSTEMI Plan - [facility] 10/26/16 without obstructive disease, has hx of spasmic related NSTEMI with stress induced CMand Takotsubo - optimizing home meds as BP will permit - normally SBP's 140's per pt's home BP cuff, since admit here has been hypotensive. S/p IVF's, clinically and by labs not dehydrated. Ordered for nursing to perform qshift orthostatics. - ECHO read pending - may need LifeVest at d/c per Cards DVT prophylaxis: TEDs, ambulate Discharge Planning: I expect patient to be discharged home 1-2 days. Leydi Urrutia MD 10/27/16 1:13 PM Please note that portions of this note may have been completed with a voice recognition program. Efforts were made to edit the dictations, but occasionally words are mistranscribed. * Shania Parkinson MA - 10/27/2016 11:53 AM EST Pt. Referred for Phase II Cardiac Rehab. Staff discussed benefits of exercise, program protocol, and educational material provided. Teach back verified. Pt. Is being referred to [facility] Cardiac Rehab per Pt. Request. Thank you for this referral. * Vilma De La Cruz MD - 10/27/2016 8:13 AM EST [facility] Inpatient Progress Note LOS: 1 day Patient Care Team: Davis Foote MD as PCP - General Davis Foote MD as PCP - Family Medicine Chief Complaint: Follow-up for NICM/Takotsubo Subjective Interval History: Feels pretty good. Chest pain has finally resolved. No current dyspnea. History taken from: patient Review of Systems: Pertinent positives noted in history, exam, and assessment. Otherwise reviewed and negative. Objective Vitals: Blood pressure 94/68, pulse 94, temperature 97.7 ??F (36.5 ??C), temperature source Oral, resp. rate 18, height 66 (167.6 cm), weight 179 lb (81.2 kg), SpO2 94 %. Intake/Output Summary (Last 24 hours) at 10/27/16 0814 Last data filed at 10/27/16 0556 Gross per 24 hour Intake 3439 ml Output 325 ml Net 3114 ml Physical Exam Constitutional: She is oriented to person, place, and time. She appears well- developed and well-nourished. No distress. HENT: Head: Normocephalic and atraumatic. Neck: No tracheal deviation present. Cardiovascular: Normal rate, regular rhythm and normal heart sounds. Left radial access site is benign Pulmonary/Chest: Effort normal and breath sounds normal. No respiratory distress. Musculoskeletal: She exhibits no edema. Neurological: She is alert and oriented to person, place, and time. Skin: Skin is warm and dry. Results Review: I reviewed the patient's new clinical results. Results from last 7 days Lab Units 10/27/16 0526 WBC 10*3/mm3 8.96 HEMOGLOBIN g/dL 11.6 HEMATOCRIT % 33.7* PLATELETS 10*3/mm3 276 Results from last 7 days Lab Units 10/27/16 0526 10/26/16 0041 SODIUM mmol/L 135 138 POTASSIUM mmol/L 3.9 4.2 CHLORIDE mmol/L 104 103 TOTAL CO2 mmol/L 27.0 27.0 BUN mg/dL 10 22 CREATININE mg/dL 0.50* 0.70 CALCIUM mg/dL 9.1 9.5 BILIRUBIN mg/dL -- 0.4 ALK PHOS U/L -- 80 ALT (SGPT) U/L -- 20 AST (SGOT) U/L -- 30 GLUCOSE mg/dL 106* 130* Results from last 7 days Lab Units 10/27/16 0526 SODIUM mmol/L 135 POTASSIUM mmol/L 3.9 CHLORIDE mmol/L 104 TOTAL CO2 mmol/L 27.0 BUN mg/dL 10 CREATININE mg/dL 0.50* GLUCOSE mg/dL 106* CALCIUM mg/dL 9.1 Results from last 7 days Lab Units 10/26/16 0041 INR 0.97 0 Lab Value Date/Time TROPONINI 4.120 (C) 10/26/2016 1437 TROPONINI 4.248 (C) 10/26/2016 0540 TROPONINI 3.426 (C) 10/26/2016 0041 ECHO- Pending Tele: SR-ST Assessment/Plan Principal Problem: Non-STEMI (non-ST elevated myocardial infarction) Active Problems: Takotsubo cardiomyopathy Unstable angina DONNA (obstructive sleep apnea) Hypertension 1. Takotsubo Cardiomyopathy/NICM- EF 20% by LV gram S/p LHC with normal coronary arteries ECHO pending. 2. HTN- now with hypotension yesterday and today. Cozaar and Lopressor have been held, no doses thus far this admit. Treated with fluids yesterday per Hospitalists. 3. DONNA Plan: Repeat ECHO is still pending. Will change Lopressor to coreg given the patient's decreased LVEF, hopefully BP will tolerate today. She may need a lifevest at discharge . Joy Skinner APRN 10/27/16 8:14 AM Please note that portions of this note may have been completed with a voice recognition program. Efforts were made to edit the dictations, but occasionally words are mistranscribed. * Leydi Urrutia MD - 10/26/2016 3:09 PM EST H&P by my partner Dr. Otero from early this morning reviewed. Patient is now status post left heart catheterization by Dr. hBatt of cardiology, verbal report was no findings of obstructive disease. Patient has a history of stress-induced cardiomyopathy and suspect current clinical presentation is consistent with recurrence of this. Echocardiogram is currently pending to reevaluate patient's EF and global function. Patient's hypotension is noted, she is currently receiving IV fluid hydrationand reinitiation of her cardiac medications may be limited somewhat by her hypotension initially. Depending on clinical course and findings, patient could possibly be discharge appropriate late tomorrow if cardiology plan of care is complete. Leydi Urrutia MD 3:11 PM 10/26/16 * Itzel Vazquez RN - 10/26/2016 2:16 PM EST Discharge Planning Assessment AJIT Briones Patient Name: Rachael Fleming Today's Date: 10/26/2016 Admit Date: 10/26/2016 Discharge Needs Assessment 10/26/16 1414 Living Environment Lives With spouse Living Arrangements house One level home Provides Primary Care For no one Primary Care Provided By spouse/significant other Quality Of Family Relationships supportive Able to Return to Prior Living Arrangements yes Discharge Needs Assessment Concerns To Be Addressed adjustment to diagnosis/illness concerns;basic needs concerns Readmission Within The Last 30 Days no previous admission in last 30 days Anticipated Changes Related to Illness none Equipment Currently Used at Home none Equipment Needed After Discharge none Transportation Available car Discharge Disposition home or self-care Discharge Contact Information if Applicable [phone] Discharge Plan 10/26/16 1416 Case Management/Social Work Plan Plan To home Patient/Family In Agreement With Plan yes Additional Comments Anticipates discharge to home with no discharge planning needs identified. Discharge Placement No information found Demographic Summary 10/26/16 1413 Referral Information Admission Type inpatient Referral Source admission list Record Reviewed medical record Contact Information Permission Granted to Share Information With field nurse case managerit program manager Physician Information Name Davis Foote Functional Status 10/26/16 1413 Functional Status Current Ambulation 0-->independent Transferring 0-->independent Toileting 0-->independent Bathing 0-->independent Dressing 0-->independent Eating 0-->independent Communication 0-->understands/communicates without difficulty Change in Functional Status Since Onset of Current Illness/Injury no Functional Status Prior Ambulation 0-->independent Transferring 0-->independent Toileting 0-->independent Bathing 0-->independent Dressing 0-->independent Eating 0-->independent Communication 0-->understands/communicates without difficulty IADL Medications independent Meal Preparation independent Housekeeping independent Laundry independent Shopping independent Oral Care independent Activity Tolerance Current Activity Limitations other (see comments) Post procedure restrictions Usual Activity Tolerance excellent Current Activity Tolerance excellent Employment/Financial Employment/Finance Comments Tells me she has [employer] Medicare. Has been able to obtain her medication with this plan. Psychosocial None Abuse/Neglect None Legal None Substance Abuse None Patient Forms None Itzel Vazquez RN documented in this encounter H&P Notes * Kanchan Otero MD - 10/26/2016 2:56 AM EST Images from the original note were not included. [facility] Medicine Services HISTORY AND PHYSICAL Primary Care Physician: Davis Foote MD Subjective Chief Complaint: Chest Pain History of Present Illness: Very pleasant 71 yo woman with a hx of Cardiomyopathy, initially diagnosed in 1996 with recovery, then a recurrence in 2007 and was diagnosed with Takotsubo at [place]. Her EF at that time was 20%, but she again recovered and had a normal EF with her most recent Echo earlier this year. She underwent amyocardial perfusion study as well which was negative. She denies any recent specific changes to her health. She notes she tires easily but attributed that to all she has been doing in preparation for Derek. Today during a family get together (which is normally pretty calm), became very stressful when her daughters began arguing. She developed the pain at that time. She presented to an OSH where her troponin was elevated and she ruled in. No acute EKG changes were noted though. She received a loading dose of 600 mg of plavix and 70 mg of Lovenox. She was referred for a higher level of care here at [facility] as she will likely require a cardiac cath. She is having persistent pain at the time of arrival but her BP is not tolerating nitro drip. Dr. Bhatt accepted the patient and has asked hospital medicine to admit tonight. Review of Systems Constitutional: Positive for fatigue. Negative for activity change, appetite change, chills, fever and unexpected weight change. HENT: Negative. Eyes: Negative. Respiratory: Negative. Cardiovascular: Positive for chest pain. Negative for palpitations and leg swelling. Gastrointestinal: Negative. Endocrine: Negative. Genitourinary: Negative. Musculoskeletal: Negative. Skin: Negative. Allergic/Immunologic: Negative. Neurological: Negative. Hematological: Negative. Psychiatric/Behavioral: Negative for agitation, confusion, dysphoric mood, sleep disturbance and suicidal ideas. The patient is nervous/anxious. Otherwise complete ROS performed and negative except as mentioned in the HPI. Past Medical History: Past Medical History Diagnosis Date ??? Asthma ??? Atrial tachycardia ??? CHF (congestive heart failure) ??? Hypertension ??? Irritable bowel ??? DONNA (obstructive sleep apnea) ??? Takotsubo cardiomyopathy Initially diagnosed at [place] 2008. EF 20 at that time. 2009 EF 55% Past Surgical History: Past Surgical History Procedure Laterality Date ??? Hysterectomy ??? Breast lumpectomy Right 20 years ago ??? Cardiac catheterization 2002 no stents. ??? Cataract extraction, bilateral Family History: family history includes Cancer in her sister; Heart disease in her father and mother; Stroke in her mother. Social History: reports that she has never smoked. She does not have any smokeless tobacco history on file. She reports that she does not drink alcohol or use illicit drugs. Medications: Prescriptions Prior to Admission Medication Sig Dispense Refill Last Dose ??? ALPRAZolam (XANAX) 0.25 MG tablet Take 0.25 mg by mouth At Night As Needed for anxiety. 10/25/2016 ??? aspirin 81 MG EC tablet Take 81 mg by mouth Daily. ??? furosemide (LASIX) 20 MG tablet Take 20 mg by mouth As Needed. Past Week at Unknown time ??? losartan-hydrochlorothiazide (HYZAAR) 50-12.5 MG per tablet Take 1 tablet by mouth Daily. 10/25/2016 ??? metoprolol tartrate (LOPRESSOR) 25 MG tablet Take 12.5 mg by mouth 2 (Two) Times a Day. 10/25/2016 at 1200 ??? nitroglycerin (NITROSTAT) 0.[address] 0.4 mg under the tongue Every 5 (Five) MinutesAs Needed for chest pain. Take no more than 3 doses in 15 minutes. ??? omeprazole (priLOSEC) 40 MG capsule Take 40 mg by mouth Daily. 10/25/2016 ??? spironolactone (ALDACTONE) 25 MG tablet Take 25 mg by mouth Daily. 10/25/2016 at 0900 ??? zolpidem (AMBIEN) 10 MG tablet Take 2.5 mg by mouth At Night As Needed for sleep. Allergies: Allergies Allergen Reactions ??? Penicillins Hives ??? Phenergan [Promethazine Hcl] Hives ??? Sudafed [Pseudoephedrine Hcl] Rash ??? Sulfa Antibiotics Rash Objective Physical Exam: Vital Signs: Visit Vitals ??? BP 102/71 ??? Pulse 102 ??? Temp 97.5 ??F (36.4 ??C) (Oral) ??? Resp 18 ??? Ht 66 (167.6 cm) ??? Wt 179 lb 3 oz (81.3 kg) ??? SpO2 99% ??? BMI 28.92 kg/m2 Physical Exam Results Reviewed: Results from last 7 days Lab Units 10/26/16 0041 WBC 10*3/mm3 13.48* HEMOGLOBIN g/dL 12.2 PLATELETS 10*3/mm3 370 Results from last 7 days Lab Units 10/26/16 0041 SODIUM mmol/L 138 POTASSIUM mmol/L 4.2 TOTAL CO2 mmol/L 27.0 CREATININE mg/dL 0.70 GLUCOSE mg/dL 130* CALCIUM mg/dL 9.5 I have personally reviewed and interpreted available lab data, radiology studies and ECG obtained at time of admission. Assessment / Plan Assessment/Problem List: Principal Problem: Non-STEMI (non-ST elevated myocardial infarction): Ruled in with elevated troponin of 3. Still having pain of 5 to 9 out of 10. BP not tolerating ntg drip. ACS protocol with ASA, 600 mg Plavix and 79 mg Lovenox at OSH (between 2100 and 2300) Active Problems: Takotsubo cardiomyopathy: History of with prior diagnosis most recently in 2007. Normal echo and stress test earlier this year (Brandie) Hold diuretics for now given the hypotension. Cardiology can restart when appro. Unstable angina: Has ruled in for NSTEMI. ACS protocol DONNA (obstructive sleep apnea). Resolved according to patient. Not wearing Cpap for years. Plan: DVT prophylaxis: received 70mg of lovenox at OSH Code Status:full Admission Status: Patient will be admitted to JASPREET Nogueira APRN 10/26/16 3:00 AM PHYSICIAN NOTE Patient is admitted today with a chief complaint of chest pain, troponin 3.4 it happened after argument pressure, central chest, going up to the jaw up to the shoulder blade associated with some lightheadedness. No complain of shortness of breath or diaphoresis. Does not have significant exertional dyspnea otherwise. Patient has been given on Lovenox, aspirin, Plavix, her blood pressure has been borderline staying in the low 90s and nitroglycerin it drops down in 80s. She is still complaining of chest pain. Pain of abdominal pain or reflux symptoms did not complain of any cough, fever. We'll go head and bolus her and try to titrate her nitroglycerin. Discussed with the clinical pharmacy technician. Probably she is going for cardiac catheter in the morning, and will start her on Integrilin. I have independently seen and examined the patient with BOTTOM [employer]ADER and the note above reflects my changesand contributions. I have discussed with findings, diagnosis and plans with the patient and family. Kanchan Otero MD 10/26/16 3:51 AM documented in this encounter Consult Notes * Lisa Bhatt MD - 10/26/2016 6:15 AM ESTAssociated Order(s): IP CONSULT TO CARDIOLOGY Date of Hospital Visit: 10/26/16 Encounter Provider: Lisa Bhatt MD Place of Service: [facility] Patient Name: Rachael Fleming :1945 Referral Provider: Lisa Bhatt MD Primary Care Provider: Davis Foote MD Primary clinical pharmacy technician: Abebe Diego M.D. Chief complaint/Reason for Consultation: Non-ST segment elevation DC. Problem List: 1. Coronary artery disease. a. August 1997, cardiac catheterization with normal coronary arteries. Normal EF. b. Cardiac catheterization, June 2008, with no significant coronary artery disease. Ejection fraction at that time 20%. c. January 2009, echocardiogram with ejection fraction of 55 +/- 5%. d. Cardiolite stress test December 2015 was negative for ischemia, showed ejection fraction 75%. e. Current presentation with chest pain/non-STEMI. 2. Cardiomyopathy. a. Initial diagnosis, 1996, with subsequent recovery. b. Recurrence with diagnosis of Takotsubo syndrome, 2007, at the [facility]. c. Subsequent normalization of ejection fraction. 3. Recurrent palpitations/tachyarrhythmias. a. Normal Holter, October [...] d. Right breast resection. History of Present Illness: The patient is a very pleasant 71-year-old female with above-mentioned medical history. Patient states that for last few days she had been feeling somewhat weak and tired but was premarked in her average/usual state of health. Last evening while she was at family dinner she experienced a lot of stress as some of her children got into an argument, subsequently she started experiencing anterior pressure-like chest discomfort radiating across the chest with associated weakness and nausea as well as shortness of breath. She went to [facility] emergency Department with ongoing chest pain. Her EKG did not show any definite diagnostic changes, initial troponin was borderline abnormal and it was felt that she needed to be hospitalized for further evaluation and management. She kept on having chest pain in the ER which improved with narcotic analgesics and nitroglycerin and she was transferred here. Her second troponin level was elevated and upon arrival here she Complaining ofongoing discomfort, at this time I was contacted by the hospitalist, her EKG was reviewed and without significant ST elevation or with previous history of stress-induced cardiomyopathy we decided to start her on Integrilin and proceed to early catheter is in study. Upon my evaluation this morning she is still complaining of ongoing chest discomfort, reports that this is much better than what it was last night however has never fully resolved. She also experienced some diarrhea last night, had some nausea. Denies recent fever chills abdominal pain vomiting or urinary symptoms. No dizziness lightheadedness palpitations or syncope. No orthopnea or PND. No symptoms of stroke. She has had occasional aches and pains of arthritis. All other review of systems are negative. Past Medical History Diagnosis Date ??? Asthma ??? Atrial tachycardia ??? CHF (congestive heart failure) ??? Hypertension ??? Irritable bowel ??? DONNA (obstructive sleep apnea) ??? Takotsubo cardiomyopathy Initially diagnosed at [place] 2008. EF 20 at that time. 2009 EF 55% Past Surgical History Procedure Laterality Date ??? Hysterectomy ??? Breast lumpectomy Right 20 years ago ??? Cardiac catheterization 2002 no stents. ??? Cataract extraction, bilateral Prescriptions Prior to Admission Medication Sig Dispense Refill Last Dose ??? ALPRAZolam (XANAX) 0.25 MG tablet Take 0.25 mg by mouth At Night As Needed for anxiety. 10/25/2016 ??? aspirin 81 MG EC tablet Take 81 mg by mouth Daily. ??? furosemide (LASIX) 20 MG tablet Take 20 mg by mouth As Needed. Past Week at Unknown time ??? losartan-hydrochlorothiazide (HYZAAR) 50-12.5 MG per tablet Take 1 tablet by mouth Daily. 10/25/2016 ??? metoprolol tartrate (LOPRESSOR) 25 MG tablet Take 12.5 mg by mouth 2 (Two) Times a Day. 10/25/2016 at 1200 ??? nitroglycerin (NITROSTAT) 0.[address] 0.4 mg under the tongue Every 5 (Five) MinutesAs Needed for chest pain. Take no more than 3 doses in 15 minutes. ??? omeprazole (priLOSEC) 40 MG capsule Take 40 mg by mouth Daily. 10/25/2016 ??? spironolactone (ALDACTONE) 25 MG tablet Take 25 mg by mouth Daily. 10/25/2016 at 0900 ??? zolpidem (AMBIEN) 10 MG tablet Take 2.5 mg by mouth At Night As Needed for sleep. Social History Social History ??? Marital status: Spouse name: N/A ??? Number of children: N/A ??? Years of education: N/A Occupational History ??? Not on file. Social History Main Topics ??? Smoking status: Never Smoker ??? Smokeless tobacco: Not on file ??? Alcohol use No ??? Drug use: No ??? Sexual activity: Not on file Other Topics Concern ??? Not on file Social History Narrative ??? No narrative on file REVIEW OF SYSTEMS: ROS 12 point ROS was performed and is Negative except as outlined in HPI Objective: Vitals: 10/26/16 0200 10/26/16 0235 10/26/16 0247 10/26/16 0557 BP: (!) 87/60 102/71 (!) 83/59 BP Location: Left arm Patient Position: Lying Pulse: 86 102 (!) 122 Resp: 18 Temp: 97.7 ??F (36.5 ??C) TempSrc: Oral SpO2: 99% 98% Weight: 179 lb (81.2 kg) Height: Body mass index is 28.89 kg/(m^2). Flowsheet Rows First Filed Value Admission Height 66 (167.6 cm) Documented at 10/26/2016 0010 Admission Weight 179 lb 3 oz (81.3 kg) Documented at 10/26/2016 0010 Physical Exam General: No acute distress, well-developed and well-nourished. Skin: Skin is warm and dry. No obvious cyanosis, erythema or pallor. HEENT: Atraumatic, normocephalic, no conjunctival pallor, no scleral icterus. Neck: Supple, no JVD. Normal carotid upstrokes, no bruits. Chest:No respiratory distres No chest wall tenderness. Breath sounds are normal. No wheezes, rhonchi or rales. Cardiovascular: Normal S1 and S2, no murmer, gallop or rub. PMI is not displaced. Pulses:Radial and pedal pulses are 2+ and symmetric. Abdomen: Soft, non tender, normal bowel sounds. Musculoskeletal/Extremities: No clubbing, cyanosis or edema. No gross deformity. Neurological: Alert and oriented to person, place, and time, no gross focal deficits. Psychiatric: Normal mood and affect.Speech and behavior is normal. Lab Review: Results from last 7 days Lab Units 10/26/16 0041 SODIUM mmol/L 138 POTASSIUM mmol/L 4.2 CHLORIDE mmol/L 103 TOTAL CO2 mmol/L 27.0 BUN mg/dL 22 CREATININE mg/dL 0.70 GLUCOSE mg/dL 130* CALCIUM mg/dL 9.5 Results from last 7 days Lab Units 10/26/16 0041 TROPONIN I ng/mL 3.426* Results from last 7 days Lab Units 10/26/16 0041 WBC 10*3/mm3 13.48* HEMOGLOBIN g/dL 12.2 HEMATOCRIT % 36.3 PLATELETS 10*3/mm3 370 Results from last 7 days Lab Units 10/26/16 0041 INR 0.97 APTT seconds 32.7* Results from last 7 days Lab Units 10/26/16 0041 MAGNESIUM mg/dL 1.8 EKG: Sinus rhythm, poor R-wave progression and nonspecific ST segment changes, minimal early repolarization that noted in high lateral leads. Assessment: ?? ACS/non-ST segment elevation DC with ongoing intermittent chest pain. ?? Previous history of stress-induced cardiomyopathy, the current onset of symptoms was also related to emotional stress. ?? History of hypertension. Plan: ?? She was treated with aspirin, Plavix and Lovenox at the outside hospital and Integrilin was added here. ?? Nitroglycerin intermittently held due to borderline blood pressure which was supported with saline. ?? We will continue above management, I have recommended cardiac catheter is in study for further evaluation, this will be followed by catheter-based intervention if indicated. ?? The procedure was explained to the patient/family extensively. Indications, benefits, risks and alternatives were discussed. The patient understands well, and wishes to proceed. ?? Further management to be based on clinical course. Lisa Bhatt MD, [facility], [facility] documented in this encounter Nursing Notes * Estefani Finley RN - 10/28/2016 2:14 PM EST Problem: Patient Care Overview (Adult) Goal: Plan of Care Review Outcome: Outcome(s) achieved Date Met: 10/28/16 10/28/16 1413 Coping/Psychosocial Response Interventions Plan Of Care Reviewed With patient;spouse;family Patient Care Overview Progress improving Outcome Evaluation Outcome Summary/Follow up Plan Pt has no c/o chest pain. VSS. D/C tomorrow. Goal: Adult Individualization and Mutuality Outcome: Outcome(s) achieved Date Met: 10/28/16 Goal: Discharge Needs Assessment Outcome: Outcome(s) achieved Date Met: 10/28/16 10/26/16 1414 Discharge Needs Assessment Concerns To Be Addressed adjustment to diagnosis/illness concerns;basic needs concerns Readmission Within The Last 30 Days no previous admission in last 30 days Equipment Needed After Discharge none Discharge Disposition home or self-care Current Health Anticipated Changes Related to Illness none Living Environment Transportation Available car Self-Care Equipment Currently Used at Home none Problem: Acute Coronary Syndrome (ACS) (Adult) Goal: Signs and Symptoms of Listed Potential Problems Will be Absent or Manageable (Acute Coronary Syndrome) Outcome: Outcome(s) achieved Date Met: 10/28/16 10/28/16 141 Acute Coronary Syndrome (ACS) Problems Assessed (Acute Coronary Syndrome (ACS)) all Problems Present (Acute Coronary Syndrome (ACS)) none Problem: Cardiac Catheterization with/without PCI (Adult) Goal: Signs and Symptoms of Listed Potential Problems Will be Absent or Manageable (Cardiac Catheterization with/without PCI) Outcome: Outcome(s) achieved Date Met: 10/28/16 10/28/161412 Cardiac Catheterization with/without PCI Problems Assessed (Cardiac Catheterization) all Problems Present (Cardiac Catheterization) none * Leah Valenzuela RN - 10/28/2016 5:34 AM EST Problem: Patient Care Overview (Adult) Goal: Plan of Care Review Outcome: Ongoing (interventions implemented as appropriate) 10/28/16 0518 Coping/Psychosocial Response Interventions Plan Of Care Reviewed With patient;spouse Patient Care Overview Progress progress toward functional goals as expected Outcome Evaluation Outcome Summary/Follow up Plan No c/o chest pain. Left cath site WNL. Coreg 3.125 mg given last pm.BP stable, with SBP in 100's. SR on monitor. Awaiting ECHO result. No further complains. Problem: Acute Coronary Syndrome (ACS) (Adult) Goal: Signs and Symptoms of Listed Potential Problems Will be Absent or Manageable (Acute Coronary Syndrome) Outcome: Ongoing (interventions implemented as appropriate) Problem: Cardiac Catheterization with/without PCI (Adult) Goal: Signs and Symptoms of Listed Potential Problems Will be Absent or Manageable (Cardiac Catheterization with/without PCI) Outcome: Ongoing (interventions implemented as appropriate) * Leah Valenzuela RN - 10/27/2016 6:25 AM EST Problem: Patient Care Overview (Adult) Goal: Plan of Care Review Outcome: Ongoing (interventions implemented as appropriate) 10/27/16 0622 Coping/Psychosocial Response Interventions Plan Of Care Reviewed With patient Patient Care Overview Progress progress toward functional goals as expected Outcome Evaluation Outcome Summary/Follow up Plan No c/o chest pain on this shift. Left wrist Cath site WNL ( no hematoma/ bleeding). BP continues to be low, SBP 90-100's, Lopressor 12.5 mg held last pm. SR on monitor.No further complains. Problem: Acute Coronary Syndrome (ACS) (Adult) Goal: Signs and Symptoms of Listed Potential Problems Will be Absent or Manageable (Acute Coronary Syndrome) Outcome: Ongoing (interventions implemented as appropriate) * Janice Milian RN - 10/26/2016 4:45 PM EST Problem: Patient Care Overview (Adult) Goal: Plan of Care Review Outcome: Ongoing (interventions implemented as appropriate) 10/26/16 1641 Coping/Psychosocial Response Interventions Plan Of Care Reviewed With patient;spouse;daughter Patient Care Overview Progress improving Outcome Evaluation Outcome Summary/Follow up Plan pt had a clean heart cath today. left tr band. pt had no complications with the tr band. she did have low bp spoke with dr aslam and gave her a 200ml bolus and uped thefluids to 100 ml/hr. pt has gotten up and used the bathroom with no problem. integrillin and nitro drip where dc'd. vitals have been stable and blood pressures in the high 80's. Goal: Adult Individualization and Mutuality Outcome: Ongoing (interventions implemented as appropriate) Goal: Discharge Needs Assessment Outcome: Ongoing (interventions implemented as appropriate) Problem: Acute Coronary Syndrome (ACS) (Adult) Goal: Signs and Symptoms of Listed Potential Problems Will be Absent or Manageable (Acute Coronary Syndrome) Outcome: Ongoing (interventions implemented as appropriate) * Leah Valenzuela RN - 10/26/2016 7:00 AM EST Problem: Patient Care Overview (Adult) Goal: Plan of Care Review Outcome: Ongoing (interventions implemented as appropriate) 10/26/16 0658 Coping/Psychosocial Response Interventions Plan Of Care Reviewed With patient Patient Care Overview Progress no change Outcome Evaluation Outcome Summary/Follow up Plan Pt continues to have chest pain. Nitro gtts started and stopped related to decreased BP. Integrillin drip started around 0420's per order. Morphine 1 mg given for chestpain per order. Other vitals stable. Problem: Acute Coronary Syndrome (ACS) (Adult) Goal: Signs and Symptoms of Listed Potential Problems Will be Absent or Manageable (Acute Coronary Syndrome) Outcome: Ongoing (interventions implemented as appropriate) documented in this encounter Plan of Treatment Upcoming Encounters Date Type Department Care Team (Late st Contact Info) Description 12/22/2024 9:50 AM EST Office Visit [facility] [address] [facility] [address] [place] [address] Go Zazueta MD [address] [facility] [address] [place] [address] 01/15/2025 9:45 AM EDT Office Visit [facility] [address] [facility] [address] [place] [address] Joy Skinner APRN [address] [facility] [address] [place], [place] [id number] documented as of this encounter Procedures Procedure Name Priority Date/Time Associated Diagnosis Comments ECHO COMPLETE W/ DOPPLER AND COLOR FLOW Routine 10/27/2016 8:57 AM EST CBC (NO DIFF) Routine 10/27/2016 5:26 AM EST BASIC METABOLIC PANEL Routine 10/27/2016 5:26 AM EST TROPONIN Timed 10/26/2016 2:37 PM EST ECG 12-LEAD Routine 10/26/2016 10:42 AM EST CARDIAC CATHETERIZATION Routine 10/26/20 16 8:40 AM EST URINALYSIS W/ CULTURE IF INDICATED Routine 10/26/2016 6:34 AM EST TROPONIN Routine 10/26/2016 5:40 AM EST ECG 12-LEAD STAT 10/26/2016 3:15 AM EST CBC WITH AUTO DIFFERENTIAL STAT 10/26/2016 12:41 AM EST TROPONIN STAT 10/26/2016 12:41 AM EST APTT STAT 10/26/2016 12:41 AM EST PROTIME-INR STAT 10/26/2016 12:41 AM EST CBC AND DIFFERENTIAL STAT 10/26/2016 12:41 AM EST B-TYPE NATRIURETIC PEPTIDE STAT 10/26/2016 12:41 AM EST MAGNESIUM STAT 10/26/2016 12:41 AM EST COMPREHENSIVE METABOLIC PANEL STAT 10/26/2016 12:41 AM EST ECG 12-LEAD STAT 10/26/2016 12:38 AM EST SCANNED - TELEMETRY 10/26/2016 SCANNED - TELEMETRY 10/26/2016 SCANNED - TELEMETRY 10/26/2016 SCANNED - TELEMETRY 10/26/2016 SCANNED EKG 10/26/2016 SCANNED - CARDIOLOGY 10/26/2016 documented in this encounter Results * ECHO COMPLETE W/ DOPPLER AND COLOR FLOW (10/27/2016 8:57 AM EST) BSA 1.9 m^2 EMC RAD RVIDd 2.8 cm EMC RAD IVSd 0.73 cm EMC RAD LVIDd 5.0 cm EMC RAD LVIDs 4.1 cm EMC RAD LVPWd 0.69 cm EMC RAD IVS/LVPW 1.1 EMC RAD FS 17.9 % EMC RAD EDV(Teich) 119.7 ml EMC RAD ESV(Teich) 75.4 ml EMC RAD EF(Teich) 37.0 % EMC RAD EDV(cubed) 127.0 ml EMC RAD ESV(cubed) 70.3 ml EMC RAD EF(cubed) 44.6 % EMC RAD LV mass(C)d 118.1 grams EMC RAD LV mass(C)dI 61.9 grams/m^2 EMC RAD SV(Teich) 44.3 ml EMC RAD SI(Teich) 23.2 ml/m^2 EMC RAD SV(cubed) 56.7 ml EMC RAD SI(cubed) 29.7 ml/m^2 EMC RAD Ao root diam 2.6 cm EMC RAD Ao root area 5.3 cm^2 EMC RAD LA dimension (2D) 3.9 cm EMC RAD LA/Ao 1.5 EMC RAD LVOT diam 1.9 cm EMC RAD LVOT area 2.7 cm^2 EMC RAD LVOT area(traced) 2.8 cm^2 EMC RAD LVLd ap4 7.4 cm EMC RAD EDV(MOD-sp4) 76.0 ml EMC RAD LVLs ap4 6.9 cm EMC RAD ESV(MOD-sp4) 41.0 ml EMC RAD EF(MOD-sp4) 46.1 % EMC RAD LVLd ap2 7.3 cm EMC RAD EDV(MOD-sp2) 79.0 ml EMC RAD LVLs ap2 6.9 cm EMC RAD ESV(MOD-sp2) 35.0 ml EMC RAD EF(MOD-sp2) 55.7 % EMC RAD SV(MOD-sp4) 35.0 ml EMC RAD SVi(MOD-SP4) 18.3 ml/m^2 EMC RAD SV(MOD-sp2) 44.0 ml EMC RAD SVi(MOD-SP2) 23.1 ml/m^2 EMC RAD Ao root area (BSA corrected) 1.4 EMC RAD EF - Contrast (2Ch) 55.7 ml/m^2 EMC RAD EF - Contrast (4Ch) 46.1 ml/m^2 EMC RAD LV Cassidy Vol (BSA corrected) 39.8 ml/m^2 EMC RAD LV Sys Vol (BSA corrected) 21.5 ml/m^2 EMC RAD MV E max lisandro 103.0 cm/sec EMC RAD MV A max lisandro 82.7 cm/sec EMC RAD MV E/A 1.2 EMC RAD MV dec time 0.16 sec EMC RAD Ao pk lisandro 165.0 cm/sec EMC RAD Ao max PG 10.9 mmHg EMC RAD Ao max PG (full) 6.6 mmHg EMC RAD Ao V2 mean 101.0 cm/sec EMC RAD Ao mean PG 5.0 mmHg EMC RAD Ao mean PG (full) 3.0 mmHg EMC RAD Ao V2 VTI 27.7 cm EMC RAD RIK(I,A) 1.8 cm^2 EMC RAD RIK(I,D) 1.8 cm^2 EMC RAD RIK(V,A) 1.7 cm^2 EMC RAD RIK(V,D) 1.7 cm^2 EMC RAD LV V1 max PG 4.2 mmHg EMC RAD LV V1 mean PG 2.0 mmHg EMC RAD LV V1 max 103.0 cm/sec EMC RAD LV V1 mean 69.5 cm/sec EMC RAD LV V1 VTI 18.9 cm EMC RAD SV(Ao) 147.1 ml EMC RAD SI(Ao) 77.1 ml/m^2 EMC RAD SV(LVOT) 50.8 ml EMC RAD SI(LVOT) 26.6 ml/m^2 EMC RAD PA V2 max 78.4 cm/sec EMC RAD PA max PG 2.5 mmHg EMC RAD PA acc slope 889.0 cm/sec^2 EMC RAD PA acc time 0.09 sec EMC RAD TR max lisandro 291.8 cm/sec EMC RAD PA pr(Accel) 39.9 mmHg EMC RAD Pulm Sys Lisandro 45.3 cm/sec EMC RAD Pulm Cassidy Lisandro 56.8 cm/sec EMC RAD Pulm S/D 0.8 EMC RAD BH CV ECHO ISSAC - BZI_BMI 28.9 kilograms/m ^2 [facility] CV ECHO ISSAC - BSA([place]) 2.0 m^2 [facility] CV ECHO ISSAC - BZI_METRIC_WEIG HT 81.2 kg [facility] BH CV ECHO ISSAC - BZI_METRIC_HEIG HT 167.6 cm [facility] RV S' 14.40 cm/sec [facility] RV Base 2.90 cm [facility] RV Length 6.30 cm [facility] RV Mid 2.00 cm [facility] E/E' ratio 17.4 [facility] LA ESV Index (BP) 23.0 mL/m2 [facility] Lat Peak E' Lisandro 7.1 cm/sec [facility] Med Peak E' Lisandro 5.08 cm/sec [facility] TAPSE (>1.6) 1.80 cm2 [facility] Echo EF Estimated 41 % [facility] Anatomical Region Laterality Modality Ultrasound 10/27/2016 8:51 AM EST Narrative 10/28/2016 9:16 AM EST ?? Left ventricular function is mildly decreased. Estimated EF = 41%. ?? The findings are consistent with stress-induced (Takotsubo) cardiomyopathy. ?? Mild mitral valve regurgitation is present ?? Mild tricuspid valve regurgitation is present. Left Ventricle Left ventricular function is mildly decreased. Calculated EF = 46.1%. Estimated EF was in disagreement with the calculated EF. Estimated EF appears to be in the range of 41 - 45%. Estimated EF = 41%. Normal left ventricular cavity size and wall thickness noted. Global left ventricular wall motion appears abnormal. The findings are consistent with stress-induced (Takotsubo) cardiomyopathy. Left ventricular diastolic dysfunction is noted. Right Ventricle Normal cavity size, wall thickness, systolic function and septal motion noted. Left Atrium Normal left atrial size and volume noted. Right Atrium Normal right atrial size noted. The inferior vena cava is normally sized. Normal IVC inspiratory collapse of greater than 50% noted. Mitral Valve The mitral valve is grossly normal in structure. Mild mitral valve regurgitation is present. Tricuspid Valve The tricuspid valve is grossly normal. Mild tricuspid valve regurgitation is present. Aortic Valve The aortic valve is grossly normal in structure. Pulmonic Valve The pulmonic valve is structurally normal. There is no significant pulmonic valve stenosis present. There is trace pulmonic valve regurgitation present. Pericardium The pericardium is normal. There is no evidence of pericardial effusion. There is a left pleural effusion. Additional Study Details A two-dimensional transthoracic echocardiogram with color flow and Doppler was performed. The study is technically good for diagnosis. Lisa Bhatt MD CV ECHO ORDERABLES Final Result * (ABNORMAL) Basic Metabolic Panel (10/27/2016 5:26 AM EST) Glucose 106(H) 70 - 100 mg/dL 10/27/2016 6:26 AM EST [facility] BUN 10 9 - 23 mg/dL 10/27/2016 6:26 AM [facility] Creatinine 0.50(L) 0.60 - 1.30 mg/dL 10/27/2016 6:26 AM EST [facility] Sodium 135 132 - 146 mmol/L 10/27/2016 6:26 AM EST [facility] Potassium 3.9 3.5 - 5.5 mmol/L 10/27/2016 6:26 AM EST [facility] Chloride 104 99 - 109 mmol/L 10/27/2016 6:26 AM EST [facility] CO2 27.0 20.0 - 31.0 mmol/L 10/27/2016 6:26 AM [facility] Calcium 9.1 8.7 - 10.4 mg/dL 10/27/2016 6:26 AM EST [facility] eGFR Non Amer 122 >60 mL/min/1.7 3 10/27/2016 6:26 AM EST [facility] BUN/Creatinine Ratio 20.0 7.0 - 25.0 10/27/2016 6:26 AM [facility] Anion Gap 4.0 3.0 - 11.0 mmol/L 10/27/2016 6:26 AM [facility] Blood 10/27/2016 5:26 AM EST 10/27/2016 5:49 AM EST [facility] - 10/27/2016 6:26 AM EST National Kidney Foundation Guidelines Stage ? Description ? GFR ? 1 ? Normal or High ?90+ 2 ? Mild decrease ?60-89 3 ? Moderate decrease ? 30-59 4 ? Severe decrease ? 15-29 5 ? Kidney failure ? <15 us Lisa Bhatt MD LAB BLOOD ORDERABLES Final Resul t [facility]
[address] [id number], * (ABNORMAL) CBC (No Diff) (10/27/2016 5:26 AM EST) WBC 8.96 3.50 - 10.80 10*3/mm3 10/27/2016 6:07 AM EST [facility] RBC 3.89 3.89 - 5.14 10*6/mm3 10/27/2016 6:07 AM EST [facility] Hemoglobin 11.6 11.5 - 15.5 g/dL 10/27/2016 6:07 AM [facility] Hematocrit 33.7(L) 34.5 - 44.0 % 10/27/2016 6:07 AM EST [facility] MCV 86.6 80.0 - 99.0 fL 10/27/2016 6:07 AM EST [facility] MCH 29.8 27.0 - 31.0 pg 10/27/2016 6:07 AM EST [facility] MCHC 34.4 32.0 - 36.0 g/dL 10/27/2016 6:07 AM [facility] RDW 12.8 11.3 - 14.5 % 10/27/2016 6:07 AM [facility] RDW-SD 40.8 37.0 - 54.0 fl 10/27/2016 6:07 AM [facility] MPV 9.7 6.0 - 12.0 fL 10/27/2016 6:07 AM [facility] Platelets 276 150 - 450 10*3/mm3 10/27/2016 6:07 AM EST [facility] Blood 10/27/2016 5:26 AM EST 10/27/2016 5:49 AM EST Lisa Bhatt MD LAB BLOOD ORDERABLES Final Resul t [facility]
[address] [place] [address], * (ABNORMAL) Troponin (10/26/2016 2:37 PM EST) Troponin I 4.120(HH) <=0.040 ng/mL 10/26/2016 3:28 PM EST [facility] Blood 10/26/2016 2:37 PM EST 10/26/2016 2:59 PM EST Narrative [facility] - 10/26/2016 3:28 PM EST Ultra Troponin I Reference Range: ? <=0.039 ng/mL: Negative ??0.04-0.779 ng/mL: Indeterminate Range. Suspicious of DC. ??Clinical correlation required. ? >=0.78 ??ng/mL: Consistent with myocardial injury. ??Clinical correlation required. Lisa Bhatt MD LAB BLOOD ORDERABLES Final Resul t [facility]
[address] [place] [address], * ECG 12 Lead (10/26/2016 10:42 AM EST) 10/26/2016 10:4 2 AM EST 10/28/2016 9:38 PM EST Narrative ECG - 10/28/2016 9:38 PM EST Test Reason : NSTEMI Blood Pressure : / mmHG Vent. Rate : 100 BPM ? Atrial Rate : 100 BPM ?? P-R Int : 162 ms ?QRS Dur : 078 ms ?QT Int : 348 ms ? P-R-T Axes : 051 052 050 degrees ?? QTc Int : 448 ms Normal sinus rhythm Low voltage QRS Cannot rule out Anterior infarct (cited on or before 27-SEP-2010) Abnormal ECG When compared with ECG of 26-OCT-2016 03:15, (Unconfirmed) Questionable change in initial forces of Lateral leads Confirmed by NOVA ??LISA MARCOS ([id number]) on 10/28/2016 9:38:38 PM Referred By: ??NOVA ? Confirmed By:LISA BHATT ?? Procedure Note Lisa Bhatt MD - 10/28/2016 Test Reason : NSTEMI Blood Pressure : / mmHG Vent. Rate : 100 BPM Atrial Rate : 100 BPM P-R Int : 162 ms QRS Dur : 078 ms QT Int : 348 ms P-R-T Axes : 051 052 050 degrees QTc Int : 448 ms Normal sinus rhythm Low voltage QRS Cannot rule out Anterior infarct (cited on or before 27-SEP-2010) Abnormal ECG When compared with ECG of 26-OCT-2016 03:15, (Unconfirmed) Questionable change in initial forces of Lateral leads Confirmed by LISA BHATT MD ([id number]) on 10/28/2016 9:38:38 PM Referred By: NOVA Confirmed By:LISA BHATT MD us Lisa Bhatt MD ECG ORDERABLES Final Result ECG * LEFT HEART CATH (10/26/2016 8:40 AM EST) Anatomical Region Laterality Modality X-Ray Angiograph y Impressions 10/26/2016 10:37 AM EST ?? Takotsubo/stress induced cardiomyopathy with severe left ventricular systolic dysfunction, estimated ejection fraction 20%. ?? Near-normal coronary arteries. RECOMMENDATIONS: ?? Supportive care and medical management. ?? Pre-discharge echocardiogram for re-assessment of LV function and consideration of life Vest. Indications: Non-ST segment elevation DC. Access: Left radial arterial. Procedures: ?? Left heart catheterization. ?? Left ventriculogram. ?? Selective coronary angiography. ?? Arterial site hemostasis with TR band. Procedure narrative: The patient was brought to the catheterization lab in a fasting condition. Access site was prepped and draped in standard sterile fashion. ?? Lidocaine was injected and arterial access was obtained by percutaneous anterior wall puncture technique. ??A 6 Japanese arterial sheath was placed. Above procedures were performed without complications. ??At the conclusion the arterial sheath was removed and hemostasis was achieved. ??The patient was transferred to the unit in a stable condition. Due to transducer malfunction pressure waveforms could not be visualized or recorded. ??The problem persisted despite changing from ACIST to manifold based system. ??Due to patient's ongoing chest pain we decided to proceed to angiography and initial catheter engagement with contrast injection was carefully performed to make sure there is no ostial involvement. ??Noninvasive blood pressure was carefully monitored throughout the case. Hemodynamic Findings: Heart Rate: 102/minute. Noninvasive blood pressure: 102/73. Left ventricular and central aortic pressures could not be recorded due to transducer malfunction. Angiographic Findings: Right coronary dominance. ?? LM: Angiographically normal. ?? LAD: Very mild, 10% smooth mid segment plaque with angiographically near normal vessel. ?? LCX: Minor luminal irregularities, angiographically near normal vessel. ?? RCA: Dominant vessel, angiographically normal. ?? LV: Left ventriculogram performed in 30 GLOVER projection revealed large area of apical ballooning and dyskinesis with severe systolic dysfunction, estimated ejection fraction is 20%. ??Mild mitral regurgitation was noted. Complications: No acute procedure related complications. Narrative 10/26/2016 10:37 AM EST FINAL Lisa Bhatt MD CV CARDIAC CATH ORDERABLES Final Result * Urinalysis With / Culture If Indicated (10/26/2016 6:34 AM EST) Color, UA Yellow Yellow, Straw 10/26/2016 7:31 AM [facility] Appearance, UA Clear Clear 10/26/2016 7:31 AM [facility] pH, UA 6.0 5.0 - 8.0 10/26/2016 7:31 AM [facility] Specific Unity, UA 1.020 1.005 - 1.030 10/26/2016 7:31 AM [facility] Glucose, UA Negative Negative 10/26/2016 7:31 AM [facility] Ketones, UA Negative Negative 10/26/2016 7:31 AM [facility] Bilirubin, UA Negative Negative 10/26/2016 7:31 AM [facility] Blood, UA Negative Negative 10/26/2016 7:31 AM [facility] Protein, UA Negative Negative 10/26/2016 7:31 AM [facility] Leuk Esterase, UA Negative Negative 10/26/2016 7:31 AM [facility] Nitrite, UA Negative Negative 10/26/2016 7:31 AM [facility] Urobilinogen, UA 0.2 E.U./dL 0.2 - 1.0 E.U./dL 10/26/2016 7:31 AM [facility] Urine Urine specimen collection, clean catch / Unknown Collection / Unknown 10/26/2016 6:34 AM EST 10/26/2016 7:27 AM EST [facility] - 10/26/2016 7:31 AM EST Urine microscopic not indicated. Kary Jero V, DANCE DIRECTOR URINE ORDERABLES Final Re sult Performing Organization Address [facility] Co de Phone Number [facility]
[address] [place] [address], * (ABNORMAL) Troponin (10/26/2016 5:40 AM EST) Troponin I 4.248(HH) <=0.040 ng/mL 10/26/2016 8:47 AM EST [facility] Blood 10/26/2016 5:40 AM EST 10/26/2016 6:19 AM EST [facility] - 10/26/2016 8:47 AM EST Ultra Troponin I Reference Range: ? <=0.039 ng/mL: Negative ??0.04-0.779 ng/mL: Indeterminate Range. Suspicious of DC. ??Clinical correlation required. ? >=0.78 ??ng/mL: Consistent with myocardial injury. ??Clinical correlation required. Kary Nogueira V, DANCE DIRECTOR LAB BLOOD ORDERABLES Tanvi l Result Performing Organization Address [facility] de Phone Number [facility]
[address] [place] [address], * ECG 12 Lead (10/26/2016 3:15 AM EST) 10/26/2016 3:15 AM EST 11/10/2016 3:22 PM EST [facility] ECG - 11/10/2016 3:22 PM EST Test Reason : chest pain Blood Pressure : / mmHG Vent. Rate : 090 BPM ? Atrial Rate : 090 BPM ?? P-R Int : 166 ms ?QRS Dur : 078 ms ?QT Int : 358 ms ? P-R-T Axes : 064 030 039 degrees ?? QTc Int : 437 ms Normal sinus rhythm Low voltage QRS Possible Anterolateral infarct (cited on or before 27-SEP-2010) Abnormal ECG When compared with ECG of 26-OCT-2016 00:38, (Unconfirmed) No significant change was found Confirmed by STORM ??VILMA MARCOS ([id number]) on 11/10/2016 3:22:27 PM Referred By: ??CIRO ? Confirmed By:VILMA DE LA CRUZ ?? Procedure Note Vilma De La Cruz MD - 11/10/2016 Test Reason : chest pain Blood Pressure : / mmHG Vent. Rate : 090 BPM Atrial Rate : 090 BPM P-R Int : 166 ms QRS Dur : 078 ms QT Int : 358 ms P-R-T Axes : 064 030 039 degrees QTc Int : 437 ms Normal sinus rhythm Low voltage QRS Possible Anterolateral infarct (cited on or before 27-SEP-2010) Abnormal ECG When compared with ECG of 26-OCT-2016 00:38, (Unconfirmed) No significant change was found Confirmed by VILMA DE LA CRUZ MD ([id number]) on 11/10/2016 3:22:27 PM Referred By: CIRO Confirmed By:VILMA DE LA CRUZ MD Kanchan Otero MD ECG ORDERABLES Final Result ECG * (ABNORMAL) CBC Auto Differential (10/26/2016 12:41 AM EST) [facility] WBC 13.48(H) 3.50 - 10.80 10*3/mm3 10/26/2016 1:05 AM EST [facility] RBC 4.23 3.89 - 5.14 10*6/mm3 10/26/2016 1:05 AM EST [facility] Hemoglobin 12.2 11.5 - 15.5 g/dL 10/26/2016 1:05 AM EST [facility] Hematocrit 36.3 34.5 - 44.0 % 10/26/2016 1:05 AM [facility] MCV 85.8 80.0 - 99.0 fL 10/26/2016 1:05 AM [facility] MCH 28.8 27.0 - 31.0 pg 10/26/2016 1:05 AM [facility] MCHC 33.6 32.0 - 36.0 g/dL 10/26/2016 1:05 AM [facility] RDW 12.6 11.3 - 14.5 % 10/26/2016 1:05 AM [facility] RDW-SD 39.1 37.0 - 54.0 fl 10/26/2016 1:05 AM [facility] MPV 9.8 6.0 - 12.0 fL 10/26/2016 1:05 AM [facility] Platelets 370 150 - 450 10*3/mm3 10/26/2016 1:05 AM [facility] Neutrophil % 70.8 41.0 - 71.0 % 10/26/2016 1:05 AM [facility] Lymphocyte % 18.9(L) 24.0 - 44.0 % 10/26/2016 1:05 AM [facility] Monocyte % 9.8 0.0 - 12.0 % 10/26/2016 1:05 AM [facility] Eosinophil % 0.3 0.0 - 3.0 % 10/26/2016 1:05 AM [facility] Basophil % 0.1 0.0 - 1.0 % 10/26/2016 1:05 AM [facility] Immature Grans % 0.1 0.0 - 0.6 % 10/26/2016 1:05 AM [facility] Neutrophils, Absolute 9.53(H) 1.50 - 8.30 10*3/mm3 10/26/2016 1:05 AM [facility] Lymphocytes, Absolute 2.55 0.60 - 4.80 10*3/mm3 10/26/2016 1:05 AM [facility] Monocytes, Absolute 1.32(H) 0.00 - 1.00 10*3/mm3 10/26/2016 1:05 AM EST [facility] Eosinophils, Absolute 0.04(L) 0.10 - 0.30 10*3/mm3 10/26/2016 1:05 AM EST [facility] Basophils, Absolute 0.02 0.00 - 0.20 10*3/mm3 10/26/2016 1:05 AM EST [facility] Immature Grans, Absolute 0.02 0.00 - 0.03 10*3/mm3 10/26/2016 1:05 AM EST [facility] Blood 10/26/2016 12:4 1 AM EST 10/26/2016 12:56 AM EST us Kanchan Otero MD LAB BLOOD ORDERABLES Final Res ult Performing Organization Address City/[facility]/ZIP Co de Phone Number [facility]
[address] [place] [address], * BNP (10/26/2016 12:41 AM EST) BNP 61.0 0.0 - 100.0 pg/mL 10/26/2016 1:40 AM EST [facility] Blood 10/26/2016 12:4 1 AM EST 10/26/2016 12:56 AM EST us Kanchan Otero MD LAB BLOOD ORDERABLES Final Res ult [facility]
[address] [place] [address], * (ABNORMAL) Troponin (10/26/2016 12:41 AM EST) Troponin I 3.426(HH) <=0.040 ng/mL 10/26/2016 1:28 AM EST [facility] Blood 10/26/2016 12:4 1 AM EST 10/26/2016 12:56 AM EST Narrative [facility] - 10/26/2016 1:28 AM EST Ultra Troponin I Reference Range: ? <=0.039 ng/mL: Negative ??0.04-0.779 ng/mL: Indeterminate Range. Suspicious of DC. ??Clinical correlation required. ? >=0.78 ??ng/mL: Consistent with myocardial injury. ??Clinical correlation required. us Kanchan Otero MD LAB BLOOD ORDERABLES Final Res ult Performing Organization Address [facility] de Phone Number [facility]
[address] [place] [address], * Protime-INR (10/26/2016 12:41 AM EST) Protime 10.6 9.6 - 11.5 Seconds 10/26/2016 1:29 AM EST [facility] INR 0.97 10/26/2016 1:29 AM EST [facility] Blood 10/26/2016 12:4 1 AM EST 10/26/2016 12:56 AM EST [facility] - 10/26/2016 1:29 AM EST Therapeutic Ranges for INR: 2.0-3.0 (PT 20-30) ?2.5-3.5 (PT 25-34) us Kanchan Otero MD LAB BLOOD ORDERABLES Final Res ult Performing Organization Address [facility] de Phone Number [facility]
[address] [place] [address], * (ABNORMAL) aPTT (10/26/2016 12:41 AM EST) PTT 32.7(H) 24.0 - 31.0 seconds 10/26/2016 1:29 AM EST [facility] Blood 10/26/2016 12:4 1 AM EST 10/26/2016 12:56 AM EST Narrative [facility] - 10/26/2016 1:29 AM EST PTT = The equivalent PTT values for the therapeutic range of heparin levels at 0.3 to 0.5 U/ml are 45 to 60 seconds. us Kanchan Otero MD LAB BLOOD ORDERABLES Final Res ult Performing Organization Address City/[facility]/ZIP Co de Phone Number [facility]
[address] [place] [address], * Magnesium (10/26/2016 12:41 AM EST) Magnesium 1.8 1.3 - 2.7 mg/dL 10/26/2016 1:26 AM EST [facility] Blood 10/26/2016 12:4 1 AM EST 10/26/2016 12:56 AM EST us Kanchan Otero MD LAB BLOOD ORDERABLES Final Res ult Performing Organization Address City/[facility]/ZIP Co de Phone Number [facility]
[address] [place] [address], * (ABNORMAL) Comprehensive Metabolic Panel (10/26/2016 12:41 AM EST) Glucose 130(H) 70 - 100 mg/dL 10/26/2016 1:26 AM EST [facility] BUN 22 9 - 23 mg/dL 10/26/2016 1:26 AM EST [facility] Creatinine 0.70 0.60 - 1.30 mg/dL 10/26/2016 1:26 AM EST [facility] Sodium 138 132 - 146 mmol/L 10/26/2016 1:26 AM EST [facility] Potassium 4.2 3.5 - 5.5 mmol/L 10/26/2016 1:26 AM EST [facility] Chloride 103 99 - 109 mmol/L 10/26/2016 1:26 AM EST [facility] CO2 27.0 20.0 - 31.0 mmol/L 10/26/2016 1:26 AM [facility] Calcium 9.5 8.7 - 10.4 mg/dL 10/26/2016 1:26 AM [facility] Total Protein 7.0 5.7 - 8.2 g/dL 10/26/2016 1:26 AM [facility] Albumin 4.20 3.20 - 4.80 g/dL 10/26/2016 1:26 AM [facility] ALT (SGPT) 20 7 - 40 U/L 10/26/2016 1:26 AM [facility] AST (SGOT) 30 0 - 33 U/L 10/26/2016 1:26 AM [facility] Alkaline Phosphatase 80 25 - 100 U/L 10/26/2016 1:26 AM [facility] Total Bilirubin 0.4 0.3 - 1.2 mg/dL 10/26/2016 1:26 AM [facility] eGFR Non Amer 83 >60 mL/min/1.7 3 10/26/2016 1:26 AM [facility] Globulin 2.8 gm/dL 10/26/2016 1:26 AM [facility] A/G Ratio 1.5 1.5 - 2.5 g/dL 10/26/2016 1:26 AM [facility] BUN/Creatinine Ratio 31.4(H) 7.0 - 25.0 10/26/2016 1:26 AM [facility] Anion Gap 8.0 3.0 - 11.0 mmol/L 10/26/2016 1:26 AM [facility] Blood 10/26/2016 12:4 1 AM EST 10/26/2016 12:56 AM EST [facility] - 10/26/2016 1:26 AM [facility] National Kidney Foundation Guidelines Stage ? Description ? GFR ? 1 ? Normal or High ?90+ 2 ? Mild decrease ?60-89 3 ? Moderate decrease ? 30-59 4 ? Severe decrease ? 15-29 5 ? Kidney failure ? <15 us Kanchan Otero MD LAB BLOOD ORDERABLES Final Res ult [facility]
[address] [place] [address], * ECG 12 Lead (10/26/2016 12:38 AM EST) 10/26/2016 12:3 8 AM EST 10/27/2016 7:20 AM EST Narrative ECG - 10/27/2016 7:21 AM EST Test Reason : for chestpain Blood Pressure : / mmHG Vent. Rate : 105 BPM ? Atrial Rate : 105 BPM ?? P-R Int : 162 ms ?QRS Dur : 078 ms ?QT Int : 358 ms ? P-R-T Axes : 059 019 018 degrees ?? QTc Int : 473 ms Sinus tachycardia Anterolateral infarct (cited on or before 27-SEP-2010) Abnormal ECG When compared with ECG of 28-SEP-2010 04:15, Vent. rate has increased BY ??35 BPM Serial changes of Anterior infarct present Confirmed by KELLEY ??DEVIN MARCOS ([id number]) on 10/27/2016 7:20:58 AM Referred By: ??CIRO ? Confirmed By:DEVIN BENSON ?? Procedure Note Devin Benson MD - 10/27/2016 Test Reason : for chestpain Blood Pressure : / mmHG Vent. Rate : 105 BPM Atrial Rate : 105 BPM P-R Int : 162 ms QRS Dur : 078 ms QT Int : 358 ms P-R-T Axes : 059 019 018 degrees QTc Int : 473 ms Sinus tachycardia Anterolateral infarct (cited on or before 27-SEP-2010) Abnormal ECG When compared with ECG of 28-SEP-2010 04:15, Vent. rate has increased BY 35 BPM Serial changes of Anterior infarct present Confirmed by DEVIN BENSON MD ([id number]) on 10/27/2016 7:20:58 AM Referred By: CIRO Confirmed By:DEVIN BNESON MD Kanchan Otero MD ECG ORDERABLES Final Result BH ECG * SCANNED - CARDIOLOGY (10/26/2016) Anatomical Region Laterality Modality Other [facility] New Onbase CV CARDIAC SERVICES ORDERABLE S Final Result * SCANNED - TELEMETRY (10/26/2016) Anatomical Region Laterality Modality Other [facility] New Onbase ECG ORDERABLES Final Result * SCANNED - TELEMETRY (10/26/2016) Anatomical Region Laterality Modality Other [facility] ECG ORDERABLES Final Result * SCANNED - TELEMETRY (10/26/2016) Anatomical Region Laterality Modality Other [facility] Onbase ECG ORDERABLES Final Result * SCANNED - TELEMETRY (10/26/2016) Anatomical Region Laterality Modality Other [facility] Onbase ECG ORDERABLES Final Result * SCANNED EKG (10/26/2016) [facility] ORDER[facility] Final Result documented in this encounter Visit Diagnoses Not on filedocumented in this encounter Admitting Diagnoses Diagnosis NSTEMI (non-ST elevated myocardial infarction) Acute myocardial infarction, subendocardial infarction, episode of care unspecified documented in this encounter Administered Medications Inactive Administered Medications - up to 3 most recent administrations Medication Order MAR Action Action Date Dose Rate Site ALPRAZolam (XANAX) tablet 0.25 mg 0.25 mg, Oral, Nightly PRN, Anxiety, Starting on Wed10/26/16 at 0241, Avoid grapefruit juice Given 10/26/2016 4:20 AM EST 0.25 mg aspirin EC tablet 81 mg 81 mg, Oral, Daily, First dose on Wed10/27/16 at 0900 Given 10/28/2016 9:54 AM EST 81 mg Given 10/27/2016 10:04 AM EST 81 mg carvedilol (COREG) tablet 3.125 mg 3.125 mg, Oral, Every 12 Hours Scheduled, First dose on Wed10/27/16 at 0900, Give with food.Indications:Takotsubo cardiomyopathy Given 10/28/2016 9:54 AM EST 3.125 mg Given 10/27/2016 9:15 PM EST 3.125 mg clopidogrel (PLAVIX) tablet 75 mg 75 mg, Oral, Daily, First dose on Wed10/26/16 at 0900 Given 10/28/2016 9:54 AM EST 75 mg Given 10/27/2016 10:04 AM EST 75 mg eptifibatide (INTEGRILIN) 75 MG/100ML infusion 2 mcg/kg/min ? 81.2 kg (12.992 mL/hr, rounded to 12.99 mL/hr), Intravenous, Continuous, Starting on Wed10/26/16 at 0430, Continue until time of surgery/cath New Bag 10/26/2016 4:20 AM EST 2 mcg/kg/min 12.99 mL/hr FentaNYL Citrate (PF) (SUBLIMAZE) injection As Needed, Starting on Wed10/26/16 at 0836 Given 10/26/2016 8:36 AM EST 50 mcg iopamidol (ISOVUE-370) 76 % injection As Needed, Starting on Wed10/26/16 at 0850 Given 10/26/2016 8:50 AM EST 65 mL lidocaine (XYLOCAINE) 1 % injection As Needed, Starting on Wed10/26/16 at 0828 Given 10/26/2016 8:28 AM EST 10 mL Wrist Left Morphine sulfate (PF) injection 1 mg 1 mg, Intravenous, Every 1 Hour PRN, Severe Pain, Starting on Wed10/26/16 at 0407, For 10 days Given 10/26/2016 6:02 PM EST 1 mg Given 10/26/2016 6:36 AM EST 1 mg Given 10/26/2016 4:10 AM EST 1 mg nicardipine (CARDENE) 400 mcg, nitroglycerin 400 mcg, heparin (porcine) 5,000 Units radial artery injection As Needed, Starting on Wed10/26/16 at 0829 Given 10/26/2016 8:29 AM EST nitroglycerin infusion 200 mcg/mL 10-50 mcg/min (3-15 mL/hr), Intravenous, Titrated, Starting on Wed10/26/16 at 0415, Administration Instructions for relief of CP. Hold if SBP less than 90mm/hg {BKC} Restarted 10/26/2016 4:04 AM EST 5 mcg/min 1.5 mL/hr O2 (OXYGEN) As Needed, Starting on Wed10/26/16 at 0835 Given 10/26/2016 8:35 AM EST 4 L ondansetron (ZOFRAN) injection 4 mg 4 mg, Intravenous, Every 6 Hours PRN, Nausea, Vomiting, Starting on Wed10/26/16 at 0249, If BOTH ondansetron (ZOFRAN) and promethazine (PHENERGAN) are ordered use ondansetron first and THEN promethazine IF ondansetron is ineffective. ondansetron (ZOFRAN) tablet 4 mg 4 mg, Oral, Every 6 Hours PRN, Nausea, Vomiting, Starting on Wed10/26/16 at 0249, If BOTH ondansetron (ZOFRAN) and promethazine (PHENERGAN) are ordered use ondansetron first and THEN promethazine IF ondansetron is ineffective. pantoprazole (PROTONIX) EC tablet 40 mg 40 mg, Oral, Every Floral Department Specialist, First dose on Wed10/26/16 at 0600, Swallow whole; do not crush, split, or chew. Given 10/28/2016 6:28 AM EST 40 mg Given 10/27/2016 5:55 AM EST 40 mg Given 10/26/2016 6:36 AM EST 40 mg Pharmacy Consult - MTM Daily, First dose on Wed10/27/16 at 0930, Until Discontinued phenylephrine (AURORA-SYNEPHRINE) injection solution As Needed, Starting on Wed10/26/16 at 0837 Given 10/26/2016 8:37 AM EST 200 mcg pravastatin (PRAVACHOL) tablet 80 mg 80 mg, Oral, Nightly, First dose on Wed10/26/16 at 2100, Avoid grapefruit juice. Given 10/27/2016 9:18 PM EST 80 mg Given 10/26/2016 9:06 PM EST 80 mg documented in this encounter Active and Recently Administered Medications Times are shown in EST. Scheduled Medication Order 10/26/2016 10/27/2016 10/28/2016 aspirin EC tablet 81 mg(Linked Group 1) 81 mg, Oral, Daily, First dose on Wed10/27/16 at 0900 0811 (MAR Hold - Provider: Automatic Transfer Provider - Reason: Unreviewed Transfer Orders)1106 (MAR Unhold - Provider: Janice Milian RN) 1004 (Given - Provider: Thea Rodríguez RN) 0954 (Given - Provider: Estefani Finley, JAYME) carvedilol (COREG) tablet 3.125 mg 3.125 mg, Oral, Every 12 Hours Scheduled, First dose on Wed10/27/16 at 0900, Give with food. 1005 (Not Given - Provider: Thea Rodríguez RN - Reason: Order parameters not met)2115 (Given - Provider: Leha Valenzuela RN) 0954 (Given - Provider: Estefani Finley RN) clopidogrel (PLAVIX) tablet 75 mg 75 mg, Oral, Daily, First dose on Wed10/26/16 at 0900 0811 (DEC Hold - Provider: Automatic Transfer Provider - Reason: Unreviewed Transfer Orders)0900 (Dose Auto Held - Provider: Automatic Transfer Provider)1106 (DEC Unhold - Provider: Janice Milian RN) 1004 (Given - Provider: Thea Rodríguez RN) 0954 (Given - Provider: Estefani Finley, JAYME) eptifibatide (INTEGRILIN) injection 14,620 mcg (COMPLETED) 14,620 mcg (rounded from 14,616 mcg = 180 mcg/kg ? 81.2 kg), Intravenous, Once, On Wed10/26/16 at 0430, For 1 dose, May give IV push over 1-2 minutes. 0413 (Given - Provider: Leah Valenzuela RN) pantoprazole (PROTONIX) EC tablet 40 mg 40 mg, Oral, Every Floral Department Specialist, First dose on Wed10/26/16 at 0600, Swallow whole; do not crush, split, or chew. 0636 (Given - Provider: Leah Valenzuela RN)0811 (DEC Hold - Provider: Automatic Transfer Provider - Reason: Unreviewed Transfer Orders)1106 (DEC Unhold - Provider: Janice Milian RN) 0555 (Given - Provider: Leah Valenzuela RN) 0628 (Given - Provider: Leah Valenzuela RN) Pharmacy Consult - MTM Daily, First dose on Wed10/27/16 at 0930, Until Discontinued 1000 (Hold - Provider: Thea Rodríguez RN - Reason: Other) 1008 (Not Given - Provider: Estefani Finley RN - Reason: Other) pravastatin (PRAVACHOL) tablet 80 mg 80 mg, Oral, Nightly, First dose on Wed10/26/16 at 2100, Avoid grapefruit juice. 0811 (DEC Hold - Provider: Automatic Transfer Provider - Reason: Unreviewed Transfer Orders)1106 (DEC Unhold - Provider: Janice Milian RN)2106 (Given - Provider: Leah Valenzuela RN) 2118 (Given - Provider: Leah Valenzuela RN) sodium chloride 0.9 % bolus 250 mL (COMPLETED) 250 mL, Intravenous, Once, On Wed10/26/16 at 0215, For 1 dose 0140 (New Bag - Provider: Leah Valenzuela RN) sodium chloride 0.9 % bolus 500 mL (COMPLETED) 500 mL, Intravenous, Once, On Wed10/26/16 at 0345, For 1 dose 0310 (New Bag - Provider: Leah Valenzuela RN) Continuous Medication Order 10/26/2016 10/27/2016 10/28/2016 eptifibatide (INTEGRILIN) 75 MG/100ML infusion 2 mcg/kg/min ? 81.2 kg (12.992 mL/hr, rounded to 12.99 mL/hr), Intravenous, Continuous, Starting on Wed10/26/16 at 0430, Continue until time of surgery/cath 0420 (New Bag - Provider: Leah Valenzuela RN)0439 (Canceled Entry - Provider: Leah Valenzuela RN - Comment: dose already started) eptifibatide (INTEGRILIN) 75 MG/100ML infusion 2 mcg/kg/min ? 81.2 kg (12.992 mL/hr, rounded to 12.99 mL/hr), Intravenous, Continuous, Starting on Wed10/26/16 at 1115, Discontinue when the current bottle runs out. 1112 (Canceled Entry - Provider: Janice Milian RN - Comment: per dr Stoll order dc'd when current bottle ended.) nitroglycerin infusion 200 mcg/mL (CANCELED) 5-200 mcg/min (1.5-60 mL/hr), Intravenous, Titrated, Starting on Wed10/26/16 at 0100, Administration Instructions for Blood pressure - Start at 5 mcg/min increasing by 5 mcg/min every 5 minutes to maintain SBP < 140 to a maximum dose of 200 mcg/min. Hold for SBP < 90. {BKC} 0033 (New Bag - Provider: Leah Valenzuela RN - Comment: pt had it infusing at 14 mcg/min from other hospital)0100 (Rate/Dose Change - Provider: Leah Valenzuela RN - Comment: decreased bp)0115 (Rate/Dose Change - Provider: Leah Valenzuela RN - Comment: decreased BP)0120 (Hold - Provider: Leah Valenzuela RN - Reason: Other - Comment: decreased bp 79//55) nitroglycerin infusion 200 mcg/mL 10-50 mcg/min (3-15 mL/hr), Intravenous, Titrated, Starting on Wed10/26/16 at 0415, Administration Instructions for relief of CP. Hold if SBP less than 90mm/hg {BKC} 0404 (Restarted - Provider: Leah Valenzuela RN)0500 (Stopped - Provider: Leah Valenzuela RN - Comment: decreased bp) sodium chloride 0.9 % infusion (CANCELED) 50 mL/hr, Intravenous, Continuous, Starting on Wed10/26/16 at 0415, Start after bolus 0422 (New Bag - Provider: Leah Valenzuela RN) 0016 (New Bag - Provider: Leah Valenzuela RN)0556 (Rate/Dose Verify - Provider: Leah Valenzuela RN) sodium chloride 0.9 % infusion () 100 mL/hr, Intravenous, Continuous, Starting on Wed10/26/16 at 1115 1111 (New Bag - Provider: Janice Milian RN) PRN Medication Order 10/26/2016 10/27/2016 10/28/2016 ALPRAZolam (XANAX) tablet 0.25 mg 0.25 mg, Oral, Nightly PRN, Anxiety, Starting on Wed10/26/16 at 0241, Avoid grapefruit juice 0420 (Given - Provider: Leah Valenzuela RN)0811 (DEC Hold - Provider: Automatic Transfer Provider - Reason: Unreviewed Transfer Orders)1106 (DEC Unhold - Provider: Janice Milian RN) calcium carbonate (TUMS) chewable tablet 500 mg (200 mg elemental) 2 tablet, Oral, 3 Times Daily PRN, Heartburn, Starting on Wed10/26/16 at 0249, One tablet contains 200 mg elemental calcium. Take with food. 0811 (DEC Hold - Provider: Automatic Transfer Provider - Reason: Unreviewed Transfer Orders)1106 (DEC Unhold - Provider: Janice Milian RN) FentaNYL Citrate (PF) (SUBLIMAZE) injection (CANCELED) As Needed, Starting on Wed10/26/16 at 0836 0836 (Given - Provider: Gloria Palencia RN - Comment: For chest pain 8 ) iopamidol (ISOVUE-370) 76 % injection (CANCELED) As Needed, Starting on Wed10/26/16 at 0850 0850 (Given - Provider: Lisa Bhatt MD) lidocaine (XYLOCAINE) 1 % injection (CANCELED) As Needed, Starting on Wed10/26/16 at 0828 0828 (Given - Provider: Lisa Bhatt MD) Morphine sulfate (PF) injection 1 mg (CANCELED) 1 mg, Intravenous, Every 3 Hours PRN, Severe Pain, Starting on Wed10/26/16 at 0043, For 10 days 0122 (Given - Provider: Leah Valenzuela RN)0230 (Given - Provider: Leah Valenzuela RN - Comment: ok with Graduate Nurse at bedside) Morphine sulfate (PF) injection 1 mg 1 mg, Intravenous, Every 1 Hour PRN, Severe Pain, Starting on Wed10/26/16 at 0407, For 10 days 0410 (Given - Provider: Leah Valenzuela RN)0636 (Given - Provider: Leah Valenzuela RN)0811 (DEC Hold - Provider: Automatic Transfer Provider - Reason: Unreviewed Transfer Orders)1106 (DEC Unhold - Provider: Janice Milian, JAYME)1802 (Given - Provider: Cynthia Dunbar RN) nicardipine (CARDENE) 400 mcg, nitroglycerin 400 mcg, heparin (porcine) 5,000 Units radial artery injection (CANCELED) As Needed, Starting on Wed10/26/16 at 0829 0829 (Given - Provider: Lisa Bhatt MD) nitroglycerin (NITROSTAT) SL tablet 0.4 mg 0.4 mg, Sublingual, Every 5 Minutes PRN, Chest Pain, Starting on Wed10/26/16 at 0245, May administer up to 3 doses per episode. 0811 (DEC Hold - Provider: Automatic Transfer Provider - Reason: Unreviewed Transfer Orders)1106 (DEC Unhold - Provider: Janice Milian RN) O2 (OXYGEN) (CANCELED) As Needed, Starting on Wed10/26/16 at 0835 0835 (Given - Provider: Gloria Palencia RN - Comment: increased) ondansetron (ZOFRAN) injection 4 mg(Linked Group 2) 4 mg, Intravenous, Every 6 Hours PRN, Nausea, Vomiting, Starting on Wed10/26/16 at 0249, If BOTH ondansetron (ZOFRAN) and promethazine (PHENERGAN) are ordered use ondansetron first and THEN promethazine IF ondansetron is ineffective. 0811 ([facility] Hold - Provider: Automatic Transfer Provider - Reason: Unreviewed Transfer Orders)1106 ([facility] Unhold - Provider: Janice Milian, RN) ondansetron (ZOFRAN) tablet 4 mg(Linked Group 2) 4 mg, Oral, Every 6 Hours PRN, Nausea, Vomiting, Starting on Wed10/26/16 at 0249, If BOTH ondansetron (ZOFRAN) and promethazine (PHENERGAN) are ordered use ondansetron first and THEN promethazine IF ondansetron is ineffective. 0811 ([facility] Hold - Provider: Automatic Transfer Provider - Reason: Unreviewed Transfer Orders)1106 ([facility] Unhold - Provider: Janice Milian, JAYME) phenylephrine (AURORA-SYNEPHRINE) injection solution (CANCELED) As Needed, Starting on Wed10/26/16 at 0837 0837 (Given - Provider: Gloria Palencia RN) sodium chloride 0.9 % flush 1-10 mL 1-10 mL, Intravenous, As Needed, Line Care, Starting on Wed10/26/16 at 0246 08[address] ([facility] Hold - Provider: Automatic Transfer Provider - Reason: Unreviewed Transfer Orders)1106 ([facility] Unhold - Provider: Janice Milian, JAYME) sodium chloride 0.9 % flush 1-10 mL 1-10 mL, Intravenous, As Needed, Line Care, Starting on Wed10/26/16 at 1033 Linked Groups Order Group 1: aspirin chewable tablet 324 mg (CANCELED) 324 mg, Oral, Once, On Wed10/26/16 at 0330, For 1 dose, Herbal/drug interaction: Avoid use with ginkgo biloba. And aspirin EC tablet 81 mgJump to med 81 mg, Oral, Daily, First dose on Wed10/27/16 at 0900 Group 2: ondansetron (ZOFRAN) tablet 4 mgJump to med 4 mg, Oral, Every 6 Hours PRN, Nausea, Vomiting, Starting on Wed10/26/16 at 0249, If BOTH ondansetron (ZOFRAN) and promethazine (PHENERGAN) are ordered use ondansetron first and THEN promethazine IF ondansetron is ineffective. Or ondansetron (ZOFRAN) injection 4 mgJump to med 4 mg, Intravenous, Every 6 Hours PRN, Nausea, Vomiting, Starting on Wed10/26/16 at 0249, If BOTH ondansetron (ZOFRAN) and promethazine (PHENERGAN) are ordered use ondansetron first and THEN promethazine IF ondansetron is ineffective. documented in this encounter Care Teams Red Cap Relationship Specialty Start Date End Date Davis Foote MD [address] [place], [place] [id number] PCP - General 09/18/15 07/21/22 documented as of this encounter
--- OUTSIDE RECORDS SUMMARY | 2024-10-02 13:13 | XMS_ITS | Encounter Summary ---
Author Organization [facility] Address [address] [place] [id number] Care Team Providers Care Business Process Analyst Name Role Phone Unavailable Primary Care Provider Unavailabl e Encounter Details Date Type Department Care Team (Late st Contact Info) Description 12/05/2014 Office Visit Converted [facility] [address] [facility] [address] [place] [phone] Jean Claude Mauricio MD [address] [facility] [address] [place] [address] Social History Tobacco Use Types Packs/Day Years Used Date Smoking Tobacco: Never Assessed Comments Unknown Sex and Gender Information Value Date Recorded Sex Assigned at Not on file Legal Sex Female 10:27 AM EDT Gender Identity Not on file Sexual Orientation Not on file documented as of this encounter Progress Notes * Jean Claude Mauricio MD - 12/05/2014 3:00 PM EST LOCATION: [place] [facility] PRIMARY CARE PHYSICIAN: Davis Foote MD IDENTIFICATION: A 69-year-old, white female from [place], [place]. CC: Cardiomyopathy PROBLEM LIST: 1. Cardiomyopathy: a. Initial diagnosis, 1996 with subsequent recovery. Recurrence with diagnosis of Takotsubo syndrome in 2007 at the [facility]. 2. Coronary artery disease: a. August 1997, cardiac catheterization with normal coronary arteries. Normal EF. Cardiac catheterization, June 2008 with no significant coronary artery disease. Ejection fractionat that time 20%. January 2009, echocardiogram with ejection fraction of 55 +/- 5%. Echocardiogram 2010: EF 55% to 60%. Mild MR. 3. Recurrent palpitations/tachyarrhythmias. a. Normal Holter, October 2011. Event recorder, 10/14/2013 through 11/04/2013, shows atrial tachycardia at 145 beats per minute, which is symptomatic. 4. Peptic ulcer disease. Hiatal hernia. Irritable bowel syndrome. Obstructive sleep apnea with CPAP machine--noncompliant. Hypertension. Nephrolithiasis. Surgeries: a. Breast lumpectomies extracted and benign. Hysterectomy. Bilateral cataract extraction with lens implantation. Right breast resection. ALLERGIES/DRUG INTOLERANCES: 1. PENICILLIN, unknown reaction. SULFA, unknown reaction. PHENERGAN, unknown reaction. SUDAFED, unknown reaction. STATINS, myalgias. CURRENT MEDICATIONS: 1. Omeprazole 40 mg daily. Lisinopril 10 mg daily. Spironolactone 25 mg daily. Aspirin 81 mg daily. Metoprolol tartrate 25 mg daily. Nitroglycerin 0.4 mg daily. HISTORY OF PRESENT ILLNESS: Patient is a pleasant 69-year-old white female with a history of cardiomyopathy with resolution and now normal EF, coronary artery disease and tachyarrhythmias who followswith Dr. Diego in [place]. Over the last couple of years, she has had episodes of tachypalpitations that start abruptly and usually go away gradually. She has gone to the ER in the past and by the time she gets there it has resolved. They usually give her nitroglycerin and pain medications. Shealso becomes very nauseated. She states that they have been occurring one time every 2-3 months at random times and they last anywhere from 10 minutes to an hour. Sometimes vagal maneuvers help them stop. She wore an event monitor in October 2013 and early November 2013, which did show what appearsto be SVT. She was sent to us by Dr. Diego for further evaluation and management, and possible EP study. Occasionally she does not chest pain, for which she follows Dr. Diego. She takes nitroglycerin on occasion. It usually occurs when she is sitting doing nothing and sometimes while working in her yard. It has been stable for quite some time and not getting worse. OBJECTIVE: VITAL SIGNS: Blood pressure 128/84, pulse 74, weight 175.2 pounds, height 5 feet 5 inches, BMI 29.5. HEAD AND NECK: No jugular venous distention. No thyromegaly or cervical adenopathy. LUNGS: Clear to auscultation bilaterally. No wheezes, rhonchi, or rales. CARDIAC: Regular rate and rhythm. Normal S1, S2. ABDOMEN: Soft, nontender. Bowel sounds present. No hepatosplenomegaly. MUSCULOSKELETAL: No bony abnormalities. Normal range of motion. NEUROLOGIC: No focal deficits. Cranial nerves II-XII grossly intact. EXTREMITIES: No edema, 2+ pedal pulses. IMPRESSION AND PLAN: 1. Atrial tachycardia/supraventricular tachycardia. We have had a long discussion with patient today that her rhythm does look like supraventricular tachycardia, but it is hard to tell from the strips. We would need to do an EP study, plus or minus radiofrequency ablation. Patient would like to think about that at this time. We will let her think on that and get back to us. Coronary artery disease. Continue to follow with Dr. Diego. Nonischemic cardiomyopathy/takotsubo cardiomyopathy currently well-controlled on current medications with resolution now with normal ejection fraction. Continue to follow with Dr. Diego. Follow up with us in a couple of months. She will think about her decision during this time or return sooner p.r.n. Sherley Bhagat PA-C dictating as a scribe for Dr. Mauricio. Sherley Bhagat PA-C* Jean Claude Mauricio MD, FAC, [facility]/ cc: Davis Foote MD [facility] Electronically signed by:Sherley Bhagat PA-C Dec 19 2014 8:50AM EST Electronically signed by:Jean Claude Mauricio MD Jan 07 2015 5:28PM EST documented in this encounter Plan of Treatment Upcoming Encounters Date Type Department Care Team (Late st Contact Info) Description 12/22/2024 9:50 AM EST Office Visit [facility] [address] [facility] [address] [place] [address] Go Zazueta MD [address] [facility] [address] [place] [phone] 01/15/2025 9:45 AM EDT Office Visit [facility] [address] [place] [address] Joy Skinner APRN [address] [place] [address] documented as of this encounter Visit Diagnoses Not on filedocumented in this encounter
--- OUTSIDE RECORDS SUMMARY | 2024-10-02 13:13 | XMS_ITS | Encounter Summary ---
Author Organization [facility] Address [address] [place] [address] Care Team Providers Care Bleach Range Operator Name Role Phone Davis Foote MD Primary Care Provider [phone] Encounter Details Date Type Department Care Team (Late st Contact Info) Description 12/30/2015 Office Visit Converted [facility] [address] [place] [address] Abebe Diego MD [address] [place] [address] Social History Tobacco Use Types Packs/Day Years Used Date Smoking Tobacco: Never Assessed Comments Unknown Sex and Gender Information Value Date Recorded Sex Assigned at Not on file Legal Sex Female 10:27 AM EDT Gender Identity Not on file Sexual Orientation Not on file documented as of this encounter Progress Notes * Abebe Diego MD - 12/30/2015 9:30 AM EST LOCATION: [place] [facility] PRIMARY CARE PHYSICIAN: Davis Foote MD STITCHER HAND: Jean Claude Mauricio MD IDENTIFICATION: A 70-year-old, white female from [place], [place]. PROBLEM LIST: 1. Cardiomyopathy. a. Initial diagnosis, 1996, with subsequent recovery. Recurrence with diagnosis of Takotsubo syndrome, 2007, at the [facility]. 2. Coronary artery disease. a. August 1997, cardiac catheterization with normal coronary arteries. Normal EF. Cardiac catheterization, June 2008, with no significant coronary artery disease. Ejection fraction at that time 20%. January 2009, echocardiogram with ejection fraction of 55 +/- 5%. 3. Recurrent palpitations/tachyarrhythmias. a. Normal Holter, October 2011. Event recorder shows atrial tachycardia at 145 beats per minute, which is symptomatic. 4. Peptic ulcer disease. Hiatal hernia. Irritable bowel syndrome Obstructive sleep apnea. noncompliant with CPAP machine. Hypertension. Nephrolithiasis. Surgeries. a. Breast lumpectomies extracted and benign. Hysterectomy. Bilateral cataract extraction with lens implantation. Right breast resection. ALLERGIES/DRUG INTOLERANCES: 1. PENICILLIN, unknown reaction. SULFA, unknown reaction. PHENERGAN, unknown reaction. SUDAFED, unknown reaction. STATINS, myalgias. CURRENT MEDICATIONS: 1. Aldactone 25 mg daily. Omeprazole 40 mg daily. Losartan/hydrochlorothiazide 50/12.5 mg daily. Metoprolol tartrate 25 mg 1/2 tablet b.i.d. Aspirin 81 mg daily. Alprazolam 0.25 mg 1/2 tablet p.r.n. Ambien 5 mg 1/2 half tablet p.r.n. Nitroglycerin 0.4 mg sublingual, as directed for chest pain. Ventolin HFA inhaler p.r.n. SUBJECTIVE: Patient is a 70-year-old female, who we are seeing today for follow-up history of nonischemic cardiomyopathy, atrial tachycardia. She presents today with complaints of fatigue. She notes that she will go to bed and sleep for 8-10 hours and still, when she awakens, she is very tired. She also complains of shortness of breath and chest pain typically with physical activity over the last 2-3 months. Overall, she notes she is not very active and she does not exercise on a regular basis. She notes most recently with the snow, whenever she is attempting to help her grandchildren build a snowman, she became quite short of breath with some chest discomfort. She notes whenever walking in the mall, she and her daughter can shop for roughly 45 minutes and then she becomes very fatigued. Overall, she notes that her blood pressure has been fairly controlled under her current regimen. Since last being seen, her primary care physician changed her lisinopril to losartan/hydrochlorothiazide. She notes some occasional edema, but overall this is improved with elevation of her extr emities. She notes overall complaining of just not feeling well. Since last being seen by Dr. Jean Claude Mauricio for her atrial tachycardia; however by the time she was evaluated, her symptoms had fairlywell resolved. No EP study was scheduled and she was placed on a p.r.n. basis with him. PHYSICAL EXAMINATION: VITAL SIGNS: Blood pressure is 122/80 mmHg. Pulse is 64. Weight is 178.8 pounds. Height is 5 feet, 6 inches. BMI 28. GENERAL: A 70-year-old overweight, female appearing her stated age, in no acute distress. NECK: Negative for JVD, 2+ carotids, no bruit. LUNGS: Clear to auscultation bilaterally, nonlabored respirations. CARDIAC: S1 and S2 heard upon auscultation. No murmur, gallop or rub. ABDOMEN: Soft and nontender. No bruits auscultated. EXTREMITIES: Negative for clubbing, cyanosis or edema. ASSESSMENT: 1. Chest pain/dyspnea on exertion. History of nonischemic cardiomyopathy. No current heart failure noted. No echocardiogram since 2010. Atrial tachycardia, overall no recurrent symptoms. Obstructive sleep apnea, noncompliant with CPAP device. Fatigue/malaise, strongly suspect this is related to her CPAP noncompliance. PLAN: At this time, to further evaluate patient's symptoms, we will obtain a myocardial perfusion study and an echocardiogram in the interim. If this is negative I discussed with patient that she should seek reevaluation of her obstructive sleep apnea, as this could possibly be the cause of many ofher symptoms. We will have results of testing to you and to patient as they are available and we will see her back in 12 months' time or sooner, if needed for abnormal test results. Charo Skinner APRN, saw this patient independently. BO Sosa MD, [facility] [place]/rxkmr cc: Davis Foote MD [facility] Electronically signed by:Joy Skinner APRN Jan 02 2016 1:13PM EST Co-author Electronically signed by:Abebe Diego MD Jan 03 2016 12:18PM EST Author documented in this encounter Plan of Treatment Upcoming Encounters Date Type Department Care Team (Late st Contact Info) Description 12/22/2024 9:50 AM EST Office Visit [facility] [address] [facility] [address] [place] [address] Go Zazueta MD [address] [facility] [address] [place], [place] [id number] 01/15/2025 9:45 AM EDT Office Visit [facility] [address] [facility] [address] [place] [address] Joy Skinner APRN [address] [facility] [address] [place] [id number] documented as of this encounter Visit Diagnoses Not on filedocumented in this encounter Care Teams Bleach Range Operator Relationship Specialty Start Date End Date Davis Foote MD [address] [place] [address] [place] [id number] PCP - General 09/18/15 07/21/22 documented as of this encounter
--- OUTSIDE RECORDS SUMMARY | 2024-10-02 13:13 | XMS_ITS | Encounter Summary ---
Author Organization [facility] Address [address] [place] [address] Care Team Providers Care Reporter Name Role Phone Davis Foote MD Primary Care Provider [phone] Reason for Referral * Diagnostic Medical (Routine) - Closed Specialty Diagnoses / Procedures Referred By Contac t Referred To Contact Procedures Cardiac Catheterization/Vascular Study Lisa Bhatt MD [address] [place] [address] Phone: tel: fax: Referral ID Status Reason Start Date Expiration Date Visits Re quested Visits Authorized [id number] Closed 10/26/2016 10/26/2017 1 1 Reason for Visit * Auth/Cert Specialty Diagnoses / Procedures Referred By Contac t Referred To Contact Diagnoses Non-STEMI (non-ST elevated myocardial infarction) NSTEMI (non-ST elevated myocardial infarction) CP Procedures Left Heart Cath Referral ID Status Reason Start Date Expiration Date Visits Re quested Visits Authorized [id number] 1 1 Encounter Details Date Type Department Care Team (Late st Contact Info) Description 10/26/2016 12:05 AM EST - 10/28/2016 2:48 PM EST Hospital Encounter 6A [address] [place] [address] Lisa Bhatt MD [address] [place] [address] Kanchan Otero MD Hall, Holly, MD [address] [facility] [address] [place] [address] Harika Zacarias MD [address] [place] [address] Takotsubo cardiomyopathy (Primary Dx) Discharge Disposition: Home or Self [...] Sign Reading Time Taken Comments Blood Pressure 102/72 10/28/2016 9:54 AM EST Pulse 87 10/28/2016 9:54 AM EST Temperature 36.7 ??C (98.1 ??F) 10/28/2016 9:00 AM ES T Respiratory Rate 18 10/28/2016 9:00 AM EST Oxygen Saturation 94% 10/27/2016 5:33 AM EST Inhaled Oxygen Concentration - - Weight 81.2 kg (179 lb) 10/28/2016 7:00 AM EST Height 167.6 cm (5' 6 ) 10/27/2016 2:26 PM EST Body Mass Index 28.89 10/27/2016 2:26 PM EST documented in this encounter Discharge Summaries * Sue Vincent APRN - 10/28/2016 12:31 PM EST Images from the original note were not included. [facility] Medicine Services DISCHARGE SUMMARY Date of [...] chest pain that started during a stressful Derek gathering. She presented to an outside hospital and was found to have an elevated troponin she was ruled in for NSTEMI ransferred to our facility for further evaluation and treatment. Patient's significant past medical history includes cardiomyopathy, initially diagnosed in 1996 with recovery, then a recurrence in 2007 and was diagnosed with Takotsubo at [facility]. Her EF at that time was 20%, [...] 2:37 PM Troponin I <=0.040 ng/mL 3.426 () 4.248 () 4.120 () ECHO: ?? Left ventricular function [...] Discharge Medications Rachael Fleming Home Medication Instructions ANNIE:[id number] Printed on:10/28/16 4079 Medication Information ALPRAZolam (XANAX) 0.25 MG tablet [...] Center 12/21/2016 9:45 AM Abebe Diego MD [facility] None Referrals and Follow-ups to Schedule [...] be sent through Care Everywhere. * CARDIOMYOPATHY (EQUATORIAL GUINEAN) * MYOCARDIAL INFARCTION (EQUATORIAL GUINEAN) * ANGIOGRAM (EQUATORIAL GUINEAN) * RADIAL SITE CARE (EQUATORIAL GUINEAN) * SMOKING CESSATION (EQUATORIAL GUINEAN) * CARDIAC DIET (EQUATORIAL GUINEAN) * CARVEDILOL TABLETS (EQUATORIAL GUINEAN) * PRAVASTATIN TABLETS (EQUATORIAL GUINEAN) * CLOPIDOGREL TABLETS (EQUATORIAL GUINEAN) * HEART FAILURE (EQUATORIAL GUINEAN) documented in this encounter Medications at Time [...] of this encounter Progress Notes * Vilma De La Cruz MD - 10/28/2016 8:09 AM EST [facility] Inpatient Progress Note LOS: 2 days Patient Care Team: Davis Foote MD as PCP - General Davis Foote MD as PCP - Family Medicine Chief Complaint: Follow-up for NICM/Takotsubo Subjective Interval History: Feels much better today. No chest pain or dyspnea. States that she has been ambulating in the [facility]. BPs 90-110, HR continues 100s History taken [...] w Dr Diego otherwise 4-6 weeks Joy Skinner APRN 10/28/16 8:09 AM Please note that portions of this note may have been completed with a voice recognition program. Efforts were made to edit the dictations, but occasionally words are mistranscribed. * Leydi Urrutia MD - 10/27/2016 1:13 PM EST Images from the original note were not included. [facility] Medicine Services INPATIENT PROGRESS NOTE Date [...] hypotensive since admit with NSTEMI Plan - [facility] 10/26/16 without obstructive disease, has hx of [...] back verified. Pt. Is being referred to [facility] per Pt. Request. Thank you for this referral. * Vilma De La Cruz MD - 10/27/2016 8:13 AM EST [facility] Inpatient Progress Note LOS: 1 day [...] last 7 days Lab Units 10/27/16 05 WBC 10*3/mm3 8.96 HEMOGLOBIN g/dL 11.6 HEMATOCRIT % 33.7* PLATELETS 10*3/mm3 276 Results from last 7 days Lab Units 10/27/16 0526 10/26/16 004 SODIUM mmol/L 135 138 POTASSIUM mmol/L 3.9 [...] HTN- now with hypotension yesterday and today. Lolitapressor have been held, no doses thus far [...] status post left heart catheterization by Dr. Bhatt of cardiology, verbal report was no findings [...] 10/26/2016 2:16 PM EST Discharge Planning Assessment [place] Patient Name: Rachael Fleming Today's Date: 10/26/2016 Admit Date: 10/26/2016 Discharge Needs Assessment 10/26/16 3904 Living Environment Lives With spouse Living Arrangements [...] or self-care Discharge Contact Information if Applicable [phone] Discharge Plan 10/26/16 141 Case Management/Social Work Plan Plan To home Patient/Family In Agreement With Plan yes Additional Comments Anticipates discharge to home with no discharge planning needs identified. Discharge Placement No information found Demographic Summary 10/26/16 1413 Referral Information Admission Type inpatient Referral Source admission list Record Reviewed medical record Contact Information Permission Granted to Share Information With director of casework servicessystem developer associate manager Physician Information Name Davis Foote Functional [...] from the original note were not included. [facility] Medicine Services HISTORY AND PHYSICAL Primary Care Physician: Davis Foote MD Subjective Chief Complaint: Chest Pain History of Present Illness: Very pleasant 71 yo woman with a hx of Cardiomyopathy, initially diagnosed in 1996 with recovery, then a recurrence in 2007 and was diagnosed with Takotsubo at [facility]. Her EF at that time was 20%, [...] a higher level of care here at [facility] as she will likely require a [...] apnea) ??? Takotsubo cardiomyopathy Initially diagnosed at [facility] 2007. EF 20 at that time. 2009 [...] Admission Status: Patient will be admitted to [facility] Kary Villafana. BO Nogueira 10/26/16 3:00 AM PHYSICIAN NOTE Patient is [...] to titrate her nitroglycerin. Discussed with the principal programmer. Probably she is going for cardiac catheter in the morning, and will start her on Integrilin. I have independently seen and examined the patient with BINDER SORTER and the note above reflects my changesand contributions. I have discussed with findings, diagnosis and plans with the patient and family. Kanchan Otero MD 10/26/16 3:51 AM documented in this encounter Consult Notes * Lisa Bhatt MD - 10/26/2016 6:15 AM ESTAssociated Order(s): IP CONSULT TO CARDIOLOGY Date of Hospital Visit: 10/26/16 Encounter Provider: Lisa Bhatt MD Place of Service: Patient Name: Rachael Fleming :1945 Referral Provider: Lisa Bhatt MD Primary Care Provider: Davis Foote MD Primary principal programmer: Abebe Diego M.D. Chief complaint/Reason for Consultation: Non-ST segment elevation ND. Problem List: 1. Coronary artery disease. a. [...] diagnosis of Takotsubo syndrome, 2007, at the [facility]. c. Subsequent normalization of ejection fraction. 3. [...] as shortness of breath. She went to [facility] emergency Department with ongoing chest pain. Her [...] apnea) ??? Takotsubo cardiomyopathy Initially diagnosed at [facility] 2008. EF 20 at that time. 2009 [...] lateral leads. Assessment: ?? ACS/non-ST segment elevation ND with ongoing intermittent chest pain. ?? Previous [...] based on clinical course. Lisa Bhatt MD, [facility] documented in this encounter Nursing Notes * Estefani Finley RN - 10/28/2016 2:14 PM EST Problem: Patient Care Overview (Adult) Goal: Plan of Care Review Outcome: Outcome(s) achieved Date Met: 10/28/16 10/28/16 141 Coping/Psychosocial Response Interventions Plan Of Care Reviewed With patient;spouse;family Patient Care Overview Progress improving Outcome Evaluation Outcome Summary/Follow up Plan Pt has no c/o chest pain. VSS. D/C tomorrow. Goal: Adult Individualization and Mutuality Outcome: Outcome(s) achieved Date Met: 10/28/16 Goal: Discharge Needs Assessment Outcome: Outcome(s) achieved Date Met: 10/28/16 10/26/16 141 Discharge Needs Assessment Concerns To Be Addressed [...] PCI) Outcome: Outcome(s) achieved Date Met: 10/28/16 10/28/16 141 Cardiac Catheterization with/without PCI Problems Assessed (Cardiac [...] did have low bp spoke with dr bhatt and gave her a 200ml bolus and [...] Ongoing (interventions implemented as appropriate) * Leah Valenzuela, JAYME - 10/26/2016 7:00 AM EST Problem: Patient [...] Description 12/22/2024 9:50 AM EST Office Visit [facility] [address] [address] Go Zazueta MD [address] [place] [address] 01/15/2025 9:45 AM EDT Office Visit [facility] [address] [place] [id number] Joy Skinner APRN [address] [place] [address] documented as of this encounter Procedures Procedure [...] - BZI_BMI 28.9 kilograms/m ^2 [facility] RAD CV ECHO ISSAC - BSA([place]) 2.0 m^2 [facility] RAD CV ECHO ISSAC - BZI_METRIC_WEIG HT 81.2 kg [facility] RAD CV ECHO ISSAC - [...] technically good for diagnosis. Lisa Bhatt MD ECHO ORDERABLES Final Result * (ABNORMAL) Basic Metabolic Panel (10/27/2016 5:26 AM EST) Glucose 106(H) 70 - 100 mg/dL 10/27/2016 6:26 AM EST LABORATORY BUN 10 9 - 23 mg/dL 10/27/2016 6:26 AM EST LABORATORY Creatinine 0.50(L) 0.60 - 1.30 mg/dL 10/27/2016 6:26 AM EST LABORATORY Sodium 135 132 - 146 mmol/L 10/27/2016 6:26 AM EST LABORATORY Potassium 3.9 3.5 - 5.5 mmol/L 10/27/2016 6:26 AM EST LABORATORY Chloride 104 99 - 109 mmol/L 10/27/2016 6:26 AM EST LABORATORY CO2 27.0 20.0 - 31.0 mmol/L 10/27/2016 6:26 AM EST LABORATORY Calcium 9.1 8.7 - 10.4 mg/dL 10/27/2016 6:26 AM EST LABORATORY eGFR Non Amer 122 >60 mL/min/1.7 3 10/27/2016 6:26 AM EST LABORATORY BUN/Creatinine Ratio 20.0 7.0 - 25.0 10/27/2016 6:26 AM [facility] Anion Gap 4.0 3.0 - 11.0 mmol/L 10/27/2016 6:26 AM [facility] Blood 10/27/2016 5:26 AM EST 10/27/2016 5:49 AM EST [facility] LABORATORY - 10/27/2016 6:26 AM EST National Kidney Foundation Guidelines Stage ? Description ? GFR ? 1 ? Normal or High ?90+ 2 ? Mild decrease ?60-89 3 ? Moderate decrease ? 30-59 4 ? Severe decrease ? 15-29 5 ? Kidney failure ? <15 us Lisa Bhatt MD LAB BLOOD ORDERABLES Final Resul t LABORATORY
[address] [place] [address], * (ABNORMAL) CBC (No Diff) (10/27/2016 5:26 AM EST) [facility] WBC 8.96 3.50 - 10.80 10*3/mm3 10/27/2016 6:07 AM EST LABORATORY RBC 3.89 3.89 - 5.14 10*6/mm3 10/27/2016 6:07 AM [facility] Hemoglobin 11.6 11.5 - 15.5 g/dL 10/27/2016 6:07 AM [facility] Hematocrit 33.7(L) 34.5 - 44.0 % 10/27/2016 6:07 AM [facility] MCV 86.6 80.0 - 99.0 fL 10/27/2016 6:07 AM EST LABORATORY MCH 29.8 27.0 - 31.0 pg 10/27/2016 6:07 AM [facility] MCHC 34.4 32.0 - 36.0 g/dL 10/27/2016 6:07 AM EST LABORATORY RDW 12.8 11.3 - 14.5 % 10/27/2016 6:07 AM [facility] RDW-SD 40.8 37.0 - 54.0 fl 10/27/2016 6:07 AM [facility] MPV 9.7 6.0 - 12.0 fL 10/27/2016 6:07 AM EST LABORATORY Platelets 276 150 - 450 10*3/mm3 10/27/2016 6:07 AM EST LABORATORY Blood 10/27/2016 5:26 AM EST 10/27/2016 5:49 AM EST us Lisa Bhatt MD LAB BLOOD ORDERABLES Final Resul t Performing Organization Address [facility] Phone Number LABORATORY
[address] [place] [address], * (ABNORMAL) Troponin (10/26/2016 2:37 PM EST) Troponin I 4.120(HH) <=0.040 ng/mL 10/26/2016 3:28 PM EST LABORATORY Blood 10/26/2016 2:37 PM EST 10/26/2016 2:59 PM EST Narrative LABORATORY - 10/26/2016 3:28 PM EST Ultra Troponin I Reference Range: ? <=0.039 ng/mL: Negative ??0.04-0.779 ng/mL: Indeterminate Range. Suspicious of ND. ??Clinical correlation required. ? >=0.78 ??ng/mL: Consistent with myocardial injury. ??Clinical correlation required. us Lisa Bhatt MD LAB BLOOD ORDERABLES Final Resul t Performing Organization Address [facility] de Phone Number LABORATORY
[address] [place] [address], * ECG 12 Lead (10/26/2016 10:42 AM [...] (19) on 10/28/2016 9:38:38 PM Referred By: ??ASLAM ? Confirmed By:LISA BHATT ?? Procedure Note [...] Lisa Bhatt MD ECG ORDERABLES Final Result BH ECG * LEFT HEART CATH (10/26/2016 8:40 AM EST) Anatomical Region Laterality Modality X-Ray Angiograph y Impressions 10/26/2016 10:37 AM EST ?? Takotsubo/stress induced cardiomyopathy with severe left ventricular systolic dysfunction, estimated ejection fraction 20%. ?? Near-normal coronary arteries. RECOMMENDATIONS: ?? Supportive care and medical management. ?? Pre-discharge echocardiogram for re-assessment of LV function and consideration of life Vest. Indications: Non-ST segment elevation ND. Access: Left radial arterial. Procedures: ?? Left [...] percutaneous anterior wall puncture technique. ??A 6 Upper [place] arterial sheath was placed. Above procedures were [...] complications. Narrative 10/26/2016 10:37 AM EST FINAL us Lisa Bhatt MD CV CARDIAC CATH ORDERABLES Final Result * Urinalysis With / Culture If Indicated (10/26/2016 6:34 AM EST) Color, UA Yellow Yellow, Straw 10/26/2016 7:31 AM EST LABORATORY Appearance, UA Clear Clear 10/26/2016 7:31 AM EST LABORATORY pH, UA 6.0 5.0 - 8.0 10/26/2016 7:31 AM EST LABORATORY Specific [place], UA 1.020 1.005 - 1.030 10/26/2016 7:31 AM EST LABORATORY Glucose, UA Negative Negative 10/26/2016 7:31 AM EST LABORATORY Ketones, UA Negative Negative 10/26/2016 7:31 AM EST LABORATORY Bilirubin, UA Negative Negative 10/26/2016 7:31 AM EST LABORATORY Blood, UA Negative Negative 10/26/2016 7:31 AM EST LABORATORY Protein, UA Negative Negative 10/26/2016 7:31 AM EST LABORATORY Leuk Esterase, UA Negative Negative 10/26/2016 7:31 AM EST LABORATORY Nitrite, UA Negative Negative 10/26/2016 7:31 AM EST LABORATORY Urobilinogen, UA 0.2 E.U./dL 0.2 - 1.0 E.U./dL 10/26/2016 7:31 AM EST LABORATORY Urine Urine specimen collection, clean catch / Unknown Collection / Unknown 10/26/2016 6:34 AM EST 10/26/2016 7:27 AM EST [facility] LABORATORY - 10/26/2016 7:31 AM EST Urine microscopic not indicated. us Kary Jero V, SEXUAL ASSAULT COUNSELOR URINE ORDERABLES Final Re sult LABORATORY
[address] [place] [address], * (ABNORMAL) Troponin (10/26/2016 5:40 AM EST) Troponin I 4.248(HH) <=0.040 ng/mL 10/26/2016 8:47 AM EST LABORATORY Blood 10/26/2016 5:40 AM EST 10/26/2016 6:19 AM EST [facility] LABORATORY - 10/26/2016 8:47 AM EST Ultra Troponin I Reference Range: ? <=0.039 ng/mL: Negative ??0.04-0.779 ng/mL: Indeterminate Range. Suspicious of ND. ??Clinical correlation required. ? >=0.78 ??ng/mL: Consistent with myocardial injury. ??Clinical correlation required. us Kary Nogueira V, SEXUAL ASSAULT COUNSELOR LAB BLOOD ORDERABLES Tanvi best Result LABORATORY
[address] [place] [address], * ECG 12 Lead (10/26/2016 3:15 AM EST) 10/26/2016 3:15 AM EST 11/10/2016 3:22 PM EST Narrative BH ECG - 11/10/2016 3:22 PM EST Test [...] CBC Auto Differential (10/26/2016 12:41 AM EST) [facility] WBC 13.48(H) 3.50 - 10.80 10*3/mm3 10/26/2016 1:05 AM [facility] RBC 4.23 3.89 - 5.14 10*6/mm3 10/26/2016 1:05 AM [facility] Hemoglobin 12.2 11.5 - 15.5 g/dL 10/26/2016 1:05 AM [facility] Hematocrit 36.3 34.5 - 44.0 % 10/26/2016 1:05 AM [facility] MCV 85.8 80.0 - 99.0 fL 10/26/2016 1:05 AM [facility] MCH 28.8 27.0 - 31.0 pg 10/26/2016 1:05 AM [facility] MCHC 33.6 32.0 - 36.0 g/dL 10/26/2016 1:05 AM [facility] RDW 12.6 11.3 - 14.5 % 10/26/2016 1:05 AM [facility] RDW-SD 39.1 37.0 - 54.0 fl 10/26/2016 1:05 AM [facility] MPV 9.8 6.0 - 12.0 fL 10/26/2016 1:05 AM [facility] Platelets 370 150 - 450 10*3/mm3 10/26/2016 1:05 AM [facility] Neutrophil % 70.8 41.0 - 71.0 % 10/26/2016 1:05 AM [facility] Lymphocyte % 18.9(L) 24.0 - 44.0 % 10/26/2016 1:05 AM EST LABORATORY Monocyte % 9.8 0.0 - 12.0 % 10/26/2016 1:05 AM [facility] Eosinophil % 0.3 0.0 - 3.0 % 10/26/2016 1:05 AM [facility] Basophil % 0.1 0.0 - 1.0 % 10/26/2016 1:05 AM [facility] Immature Grans % 0.1 0.0 - 0.6 % 10/26/2016 1:05 AM [facility] Neutrophils, Absolute 9.53(H) 1.50 - 8.30 10*3/mm3 10/26/2016 1:05 AM [facility] Lymphocytes, Absolute 2.55 0.60 - 4.80 10*3/mm3 10/26/2016 1:05 AM [facility] Monocytes, Absolute 1.32(H) 0.00 - 1.00 10*3/mm3 10/26/2016 1:05 AM [facility] Eosinophils, Absolute 0.04(L) 0.10 - 0.30 10*3/mm3 10/26/2016 1:05 AM [facility] Basophils, Absolute 0.02 0.00 - 0.20 10*3/mm3 10/26/2016 1:05 AM [facility] Immature Grans, Absolute 0.02 0.00 - 0.03 10*3/mm3 10/26/2016 1:05 AM [facility] Blood 10/26/2016 12:4 1 AM EST 10/26/2016 12:56 AM EST us Kanchan Otero MD LAB BLOOD ORDERABLES Final Res ult [facility]
[address] [place] [address], * BNP (10/26/2016 12:41 AM EST) BNP 61.0 0.0 - 100.0 pg/mL 10/26/2016 1:40 AM EST LABORATORY Blood 10/26/2016 12:4 1 AM EST 10/26/2016 12:56 AM EST us Kanchan Otero MD LAB BLOOD ORDERABLES Final Res ult Performing Organization Address [facility] de Phone Number LABORATORY
[address] [place] [address], * (ABNORMAL) Troponin (10/26/2016 12:41 AM EST) Pathologist [facility] Troponin I 3.426(HH) <=0.040 ng/mL 10/26/2016 1:28 AM EST LABORATORY Blood 10/26/2016 12:4 1 AM EST 10/26/2016 12:56 AM EST Narrative LABORATORY - 10/26/2016 1:28 AM EST Ultra Troponin I Reference Range: ? <=0.039 ng/mL: Negative ??0.04-0.779 ng/mL: Indeterminate Range. Suspicious of ND. ??Clinical correlation required. ? >=0.78 ??ng/mL: Consistent with myocardial injury. ??Clinical correlation required. us Kanchan Otero MD LAB BLOOD ORDERABLES Final Res ult Performing Organization Address [facility] Co de Phone Number LABORATORY
[address] [place] [address], * Protime-INR (10/26/2016 12:41 AM EST) Pathologist [facility] Protime 10.6 9.6 - 11.5 Seconds 10/26/2016 1:29 AM EST LABORATORY INR 0.97 10/26/2016 1:29 AM EST LABORATORY Blood 10/26/2016 12:4 1 AM EST 10/26/2016 12:56 AM EST Narrative LABORATORY - 10/26/2016 1:29 AM EST Therapeutic Ranges for INR: 2.0-3.0 (PT 20-30) ?2.5-3.5 (PT 25-34) us Kanchan Otero MD LAB BLOOD ORDERABLES Final Res ult Performing Organization Address [facility] de Phone Number LABORATORY
[address] [place] [address], * (ABNORMAL) aPTT (10/26/2016 12:41 AM EST) PTT 32.7(H) 24.0 - 31.0 seconds 10/26/2016 1:29 AM EST LABORATORY Blood 10/26/2016 12:4 1 AM EST 10/26/2016 12:56 AM EST Narrative LABORATORY - 10/26/2016 1:29 AM EST PTT = The equivalent PTT values for the therapeutic range of heparin levels at 0.3 to 0.5 U/ml are 45 to 60 seconds. us Kanchan Otero MD LAB BLOOD ORDERABLES Final Res ult Performing Organization Address [facility] de Phone Number LABORATORY
[address] [place] [address], [place] [phone] * Magnesium (10/26/2016 12:41 AM EST) Magnesium 1.8 1.3 - 2.7 mg/dL 10/26/2016 1:26 AM EST LABORATORY Blood 10/26/2016 12:4 1 AM EST 10/26/2016 12:56 AM EST us Kanchan Otero MD LAB BLOOD ORDERABLES Final Res ult Performing Organization Address [facility] de Phone Number LABORATORY
[address] [place] [address], * (ABNORMAL) Comprehensive Metabolic Panel (10/26/2016 12:41 AM EST) Glucose 130(H) 70 - 100 mg/dL 10/26/2016 1:26 AM EST LABORATORY BUN 22 9 - 23 mg/dL 10/26/2016 1:26 AM EST LABORATORY Creatinine 0.70 0.60 - 1.30 mg/dL 10/26/2016 1:26 AM EST LABORATORY Sodium 138 132 - 146 mmol/L 10/26/2016 1:26 AM EST LABORATORY Potassium 4.2 3.5 - 5.5 mmol/L 10/26/2016 1:26 AM EST LABORATORY Chloride 103 99 - 109 mmol/L 10/26/2016 1:26 AM EST LABORATORY CO2 27.0 20.0 - 31.0 mmol/L 10/26/2016 1:26 AM EST LABORATORY Calcium 9.5 8.7 - 10.4 mg/dL 10/26/2016 1:26 AM EST LABORATORY Total Protein 7.0 5.7 - 8.2 g/dL 10/26/2016 1:26 AM EST LABORATORY Albumin 4.20 3.20 - 4.80 g/dL 10/26/2016 1:26 AM EST LABORATORY ALT (SGPT) 20 7 - 40 U/L 10/26/2016 1:26 AM [facility] AST (SGOT) 30 0 - 33 U/L 10/26/2016 1:26 AM EST LABORATORY Alkaline Phosphatase 80 25 - 100 U/L 10/26/2016 1:26 AM [facility] Total Bilirubin 0.4 0.3 - 1.2 mg/dL 10/26/2016 1:26 AM [facility] LAB[facility] eGFR Non Amer 83 >60 mL/min/1.7 3 10/26/2016 1:26 AM [facility] Globulin 2.8 gm/dL 10/26/2016 1:26 AM [facility] A/G Ratio 1.5 1.5 - 2.5 g/dL 10/26/2016 1:26 AM [facility] BUN/Creatinine Ratio 31.4(H) 7.0 - 25.0 10/26/2016 1:26 AM [facility] LAB[facility] Anion Gap 8.0 3.0 - 11.0 mmol/L 10/26/2016 1:26 AM [facility] Blood 10/26/2016 12:4 1 AM EST 10/26/2016 12:56 AM EST [facility] LABORATORY - 10/26/2016 1:26 AM EST National Kidney Foundation Guidelines Stage ? Description ? GFR ? 1 ? Normal or High ?90+ 2 ? Mild decrease ?60-89 3 ? Moderate decrease ? 30-59 4 ? Severe decrease ? 15-29 5 ? Kidney failure ? <15 us Kanchan Otero MD LAB BLOOD ORDERABLES Final Res ult LABORATORY
[address] [place] [address], * ECG 12 Lead (10/26/2016 12:38 AM [...] Referred By: ??CIRO ? Confirmed By:DEVIN BENSON ??MD Procedure Note Devin Benson MD - 10/27/2016 [...] 7:20:58 AM Referred By: CIRO Confirmed By:DEVIN BENSON MD Kanchan Otero MD ECG ORDERABLES Final Result ECG * SCANNED - CARDIOLOGY (10/26/2016) Anatomical Region Laterality Modality Other [facility] CARDIAC SERVICES ORDERABLE S [...] ORDERABLES Final Result * SCANNED EKG (10/26/2016) us [facility] ECG ORDERABLES Final Result documented in this encounter Visit Diagnoses Diagnosis Non-STEMI (non-ST elevated myocardial infarction)- Primary Acute myocardial infarction, subendocardial infarction, episode of care unspecified Takotsubo cardiomyopathy Takotsubo syndrome Takotsubo cardiomyopathy Takotsubo syndrome Unstable angina Intermediate coronary syndrome DONNA (obstructive sleep apnea) Obstructive sleep apnea (adult) (pediatric) Hypertension, however hypotensive since admit with NSTEMI Unspecified essential hypertension documented in this encounter Admitting Diagnoses Diagnosis NSTEMI [...] 4:20 AM EST 2 mcg/kg/min 12.99 mL/hr eptifibatide (INTEGRILIN) injection 14,620 mcg 14,620 mcg (rounded from 14,616 mcg = 180 mcg/kg ? 81.2 kg), Intravenous, Once, On Wed10/26/16 at 0430, For 1 dose, May give IV push over 1-2 minutes. Given 10/26/2016 4:13 AM EST 14,620 mcg Morphine sulfate (PF) injection 1 mg 1 mg, Intravenous, Every 3 Hours PRN, Severe Pain, Starting on Wed10/26/16 at 0043, For 10 days Given 10/26/2016 2:30 AM EST 1 mg Given 10/26/2016 1:22 AM EST 1 mg Morphine sulfate (PF) injection 1 mg 1 mg, Intravenous, Every 1 Hour PRN, Severe Pain, Starting on Wed10/26/16 at 0407, For 10 days Given 10/26/2016 6:02 PM EST 1 mg Given 10/26/2016 6:36 AM EST 1 mg Given 10/26/2016 4:10 AM EST 1 mg nitroglycerin infusion 200 mcg/mL 5-200 mcg/min (1.5-60 mL/hr), Intravenous, Titrated, Starting on Wed10/26/16 at 0100, Administration Instructions for Blood pressure - Start at 5 mcg/min increasing by 5 mcg/min every 5 minutes to maintain SBP < 140 to a maximum dose of 200 mcg/min. Hold for SBP < 90. {BKC} Rate/Dose Change 10/26/2016 1:15 AM EST 5 mcg/min 1.5 mL/hr Rate/Dose Change 10/26/2016 1:00 AM EST 10 mcg/min 3 mL/hr New Bag 10/26/2016 12:33 AM EST 15 mcg/min 4.5 mL/hr nitroglycerin infusion 200 mcg/mL 10-50 mcg/min (3-15 mL/hr), Intravenous, Titrated, Starting on Wed10/26/16 at 0415, Administration Instructions for relief of CP. Hold if SBP less than 90mm/hg {BKC} Restarted 10/26/2016 4:04 AM EST 5 mcg/min 1.5 mL/hr ondansetron (ZOFRAN) injection 4 mg 4 mg, [...] tablet 40 mg 40 mg, Oral, Every Analytics Senior Manager, First dose on Wed10/26/16 at 0600, Swallow whole; do not crush, split, or chew. Given 10/28/2016 6:28 AM EST 40 mg Given 10/27/2016 5:55 AM EST 40 mg Given 10/26/2016 6:36 AM EST 40 mg Pharmacy Consult - MT Daily, First dose on Wed10/27/16 at 0930, Until Discontinued pravastatin (PRAVACHOL) tablet 80 mg 80 mg, Oral, Nightly, First dose on Wed10/26/16 at 2100, Avoid grapefruit juice. Given 10/27/2016 9:18 PM EST 80 mg Given 10/26/2016 9:06 PM EST 80 mg sodium chloride 0.9 % bolus 250 mL 250 mL, Intravenous, Once, On Wed10/26/16 at 0215, For 1 dose New 10/26/2016 1:40 AM EST 250 mL sodium chloride 0.9 % bolus 500 mL 500 mL, Intravenous, Once, On Wed10/26/16 at 0345, For 1 dose New 10/26/2016 3:10 AM EST 500 mL sodium chloride 0.9 % infusion 50 mL/hr, Intravenous, Continuous, Starting on Wed10/26/16 at 0415, Start after bolus Rate/Dose Verify 10/27/2016 5:56 AM EST 50 mL/hr 50 mL/hr New 10/27/2016 12:16 AM EST 50 mL/hr 50 mL/hr New 10/26/2016 4:22 AM EST 50 mL/hr 50 mL/hr sodium chloride 0.9 % infusion 100 mL/hr, Intravenous, Continuous, Starting on Wed10/26/16 at 1115 New Bag 10/26/2016 11:11 AM EST 100 mL/hr 100 mL/hr documented in this encounter Active and [...] Rodríguez RN) 0954 (Given - Provider: Estefani Finley RN) carvedilol (COREG) tablet 3.125 mg 3.125 mg, Oral, Every 12 Hours Scheduled, First dose on Wed10/27/16 at 0900, Give with food. 1005 (Not Given - Provider: Thea Rodríguez RN - Reason: Order parameters not met)2115 (Given - Provider: Leah Valenzuela RN) 0954 (Given - Provider: Estefani [...] Rodríguez RN) 0954 (Given - Provider: Estefani Finley RN) eptifibatide (INTEGRILIN) injection 14,620 mcg (COMPLETED) 14,620 mcg (rounded from 14,616 mcg = 180 mcg/kg ? 81.2 kg), Intravenous, Once, On Wed10/26/16 at 0430, For 1 dose, May give IV push over 1-2 minutes. 0413 (Given - Provider: Leah Valenzuela RN) pantoprazole (PROTONIX) EC tablet 40 mg 40 mg, Oral, Every Analytics Senior Manager, First dose on Wed10/26/16 at 0600, Swallow [...] Until Discontinued 1000 (Hold - Provider: Thea Rodrígeuz RN - Reason: Other) 1008 (Not Given - Provider: Estefani Finley RN - Reason: Other) pravastatin (PRAVACHOL) tablet 80 mg 80 mg, Oral, Nightly, First dose on Wed10/26/16 at 2100, Avoid grapefruit juice. 0811 (DEC Hold - Provider: Automatic Transfer Provider - Reason: Unreviewed Transfer Orders)1106 (MAR Unhold - Provider: Janice Milian RN)2105 (Given - Provider: Leah Valenzuela RN) 2117 (Given - Provider: Leah Valenzuela RN) sodium [...] out. 1112 (Canceled Entry - Provider: Janice Milian, JAYME - Comment: per dr Stoll order dc'd [...] 1115 1111 (New Bag - Provider: Janice Milian, JAYME) PRN Medication Order 10/26/2016 10/27/2016 10/28/2016 ALPRAZolam (XANAX) tablet 0.25 mg 0.25 mg, Oral, Nightly PRN, Anxiety, Starting on Wed10/26/16 at 0241, Avoid grapefruit juice 0420 (Given - Provider: Leah Valenzuela RN)0811 (MAR Hold - Provider: Automatic Transfer Provider - Reason: Unreviewed Transfer Orders)1106 (MAR Unhold - Provider: Janice Milian, JAYME) calcium carbonate (TUMS) chewable tablet 500 mg [...] Leah Valenzuela RN - Comment: ok with Dike Supervisor at bedside) Morphine sulfate (PF) injection 1 mg 1 mg, Intravenous, Every 1 Hour PRN, Severe Pain, Starting on Wed10/26/16 at 0407, For 10 days 0410 (Given - Provider: Leah Valenzuela RN)0636 (Given - Provider: Leah Valenzuela RN)0811 (DEC Hold - Provider: Automatic Transfer Provider - Reason: Unreviewed Transfer Orders)1106 ([facility] Unhold - Provider: Janice Milian RN)1802 (Given - Provider: Cynthia Dunbar RN) nicardipine [...] Transfer Provider - Reason: Unreviewed Transfer Orders)1106 ([facility] Unhold - Provider: Janice Milian, JAYME) O2 (OXYGEN) (CANCELED) As Needed, Starting on Wed10/26/16 at 0835 0835 (Given - Provider: Gloria Palencia, RN - Comment: increased) ondansetron (ZOFRAN) injection 4 mg(Linked Group 2) 4 mg, Intravenous, Every 6 Hours PRN, Nausea, Vomiting, Starting on Wed10/26/16 at 0249, If BOTH ondansetron (ZOFRAN) and promethazine (PHENERGAN) are ordered use ondansetron first and THEN promethazine IF ondansetron is ineffective. 0811 ([facility] Hold - Provider: Automatic Transfer Provider - Reason: Unreviewed Transfer Orders)1106 ([facility] Unhold - Provider: Janice Milian, JAYME) ondansetron (ZOFRAN) tablet 4 mg(Linked Group 2) 4 mg, Oral, Every 6 Hours PRN, Nausea, Vomiting, Starting on Wed10/26/16 at 0249, If BOTH ondansetron (ZOFRAN) and promethazine (PHENERGAN) are ordered use ondansetron first and THEN promethazine IF ondansetron is ineffective. 0811 ([facility] Hold - Provider: Automatic Transfer Provider - Reason: Unreviewed Transfer Orders)1106 ([facility] Unhold - Provider: Janice Milian RN) phenylephrine (AURORA-SYNEPHRINE) injection solution (CANCELED) As Needed, Starting on Wed10/26/16 at 0837 0837 (Given - Provider: Gloria Palencia RN) sodium chloride 0.9 % flush 1-10 mL 1-10 mL, Intravenous, As Needed, Line Care, Starting on Wed10/26/16 at 0246 0811 ([facility] Hold - Provider: Automatic Transfer Provider - Reason: Unreviewed Transfer Orders)1106 ([facility] Unhold - Provider: Janice Milian RN) sodium chloride 0.9 % flush 1-10 [...] ineffective. documented in this encounter Care Teams Reporter Relationship Specialty Start Date End Date Davis Foote MD [address] [place] [address] PCP - General 09/18/15 07/21/22 documented as of this encounter
--- OUTSIDE RECORDS SUMMARY | 2024-10-02 13:13 | XMS_ITS | Encounter Summary ---
Author Organization [facility] Address [address] [place] [address] Care Team Providers Care Packaging Designer Name Role Phone Unavailable Primary Care Provider Unavailabl e Encounter Details Date Type Department Care Team (Late st Contact Info) Description 04/09/2015 Office Visit Converted [facility] C[facility] [address] [facility] [address] [place] [phone] Jean Claude Mauricio MD [address] [facility] [address] [place] [address] Social History Tobacco Use Types Packs/Day Years Used Date Smoking Tobacco: Never Assessed Comments Unknown Sex and Gender Information Value Date Recorded Sex Assigned at Not on file Legal Sex Female 10:27 AM EDT Gender Identity Not on file Sexual Orientation Not on file documented as of this encounter Progress Notes * Jean Claude Mauricio MD - 04/09/2015 9:00 AM EDT LOCATION: [place] [facility] PRIMARY CARE PHYSICIAN: Davis Foote MD PHOTOGRAPHIC EQUIPMENT TECHNICIAN: Jean Claude Mauricio MD IDENTIFICATION: A 69-year-old, white female from [place], [place]. PROBLEM LIST: 1. Cardiomyopathy. a. Initial diagnosis, 1996, with subsequent recovery. Recurrence with diagnosis of Takotsubo syndrome, 2007, at the [facility]. 2. Coronary artery disease. a. August 1997, cardiac catheterization with normal coronary arteries. Normal ejection fraction. Cardiac catheterization, June 2008, with no significant coronary artery disease. Ejection fraction at that time 20%. January 2009, echocardiogram with ejection fraction of 55 +/- 5%. 3. Recurrent palpitations/tachyarrhythmias. a. Normal Holter, October 2011. Event recorder shows atrial tachycardia at 145 beats per minute, which is symptomatic. 4. Peptic ulcer disease. Hiatal hernia. Irritable bowel syndrome Obstructive sleep apnea with CPAP machine. Hypertension. Nephrolithiasis. Surgeries. a. Breast lumpectomies extracted and benign. Hysterectomy. Bilateral cataract extraction with lens implantation. Right breast resection. ALLERGIES/DRUG INTOLERANCES: 1. PENICILLIN, unknown reaction. SULFA, unknown reaction. PHENERGAN, unknown reaction. SUDAFED, unknown reaction. STATINS, myalgias. CURRENT MEDICATIONS: 1. Omeprazole 40 mg daily. Lisinopril 20 mg daily. Spironolactone 25 mg daily. Aspirin 81 mg daily. Metoprolol 12.5 mg p.o. b.i.d. Azithromycin 250 mg x5 days. Methylprednisolone 4 mg x1 week. HISTORY OF PRESENT ILLNESS: Patient presents for further evaluation and management of her supraventricular tachycardia. Since she was last seen in the clinic, she has had no tachypalpitations, lightheadedness, near syncope, syncope. No chest pain or cardiovascular complaints. She has been having pro blems with increased blood pressure and last week, her medications were increased to lisinopril 20 mg p.o. daily. Since that time, her blood pressure has been better controlled. PHYSICAL EXAMINATION: VITAL SIGNS: Blood pressure today is 122/74 mmHg. Pulse is 60. NECK: No jugular venous distention. LUNGS: Clear to auscultation bilaterally. CARDIOVASCULAR: Regular rate and rhythm. Normal S1, S2. There is an S4. No murmurs. ABDOMEN: Soft. EXTREMITIES: No musculoskeletal deformities. IMPRESSION: 1. Atrial tachycardia, asymptomatic. No recurrence at this time, doing well. Monitor off medications. Hypertensive heart disease, followup with Dr. Davis Foote and as well as Dr. Diego. We will see her on a p.r.n. basis, if she does have any breakthrough episodes of supraventricular tachycardia or worsening symptoms. Jean Claude Mauricio MD, FAC, FHRS GFT/rxkr cc: Davis Foote MD [facility] Electronically signed by:Jean Claude Mauricio MD Apr 18 2015 4:32PM EST documented in this encounter Plan of Treatment Upcoming Encounters Date Type Department Care Team (Late st Contact Info) Description 12/22/2024 9:50 AM EST Office Visit [facility] ORTHOPEDICS & SPORTS MEDICINE [address] [facility] [address] [place] [phone] Go Zazueta MD [address] [facility] [address] [place] [phone] 01/15/2025 9:45 AM EDT Office Visit [facility] C[facility] [address] [facility] [address] [place] [address] Joy Skinner APRN [address] [facility] [address] [facility] [address] [place] [phone] documented as of this encounter Visit Diagnoses Not on filedocumented in this encounter
--- OUTSIDE RECORDS SUMMARY | 2024-10-02 13:13 | XMS_ITS | Encounter Summary ---
Author Organization [facility] Address [address] [place] [address] Care Team Providers Care Wood Heel Finisher Name Role Phone Davis Foote MD Primary Care Provider Encounter Details Date Type Department Care Team (Late st Contact Info) Description 01/17/2016 9:37 AM EDT - 01/17/2016 11:59 PM EDT Hospital Encounter [facility]UL[facility] [address] [place] [phone] Joy Skinner APRN [address] [facility] [address] [place] [phone] Discharge Disposition: Home or Self Care Social History Tobacco Use Types Packs/Day Years Used Date Smoking Tobacco: Never Assessed Comments Unknown Sex and Gender Information Value Date Recorded Sex Assigned at Not on file Legal Sex Female 10:27 AM EDT Gender Identity Not on file Sexual Orientation Not on file documented as of this encounter Medications at Time of Discharge nitroglycerin (NITROSTAT) 0.[address] 0.4 mg under the tongue Every 5 (Five) Minutes As Needed. 12/10/2014 10/26/2016 documented as of this encounter Plan of Treatment Upcoming Encounters Date Type Department Care Team (Late st Contact Info) Description 12/22/2024 9:50 AM EST Office Visit [facility] MEDICINE [address] [facility] [address] [place] [address] Go Zazueta MD [address] [facility] [address] [place] [phone] 01/15/2025 9:45 AM EDT Office Visit [facility] [address] [facility] [address] [place] [phone] Joy Skinner APRN [address] [facility] [address] [place] [address] documented as of this encounter Procedures Procedure Name Priority Date/Time Associated Diagnosis Comments CONVERTED (HISTORICAL) CARDIOVASCULAR STUDIES Routine 01/22/2016 2:37 PM EDT SCANNED - CARDIOLOGY 01/17/2016 documented in this encounter Results * Cardiovascular Studies - Converted (01/22/2016 2:37 PM EDT) Anatomical Region Laterality Modality Other 01/22/2016 2:37 PM EDT Narrative 01/23/2016 3:20 PM EDT [facility] [address] [place], [place] ??[address] NUCLEAR MEDICINE STUDY PATIENT NAME: ?ANTOLIN FLEMING VISIT NUMBER: ?[id number] DATE OF PROCEDURE: ?? 01/17/2016 : 1945 ?SEX: ??F ??AGE: ??70Y ??HT: ?? WT: ORDERING PROVIDER: ??Lin Skinner APRN PRIMARY CARE PHYSICIAN: ??Davis Foote MD READING PHYSICIAN: ??Johanna Gary MD TYPE OF STUDY: ??Myocardial perfusion imaging with sestamibi SPECT at rest and after exercise with gated SPECT. HISTORY: ??A 70 year old female with obstructive sleep apnea, hypertension, dyspnea and chest pain. ?BMI ??27. ?? INDICATION: ??Chest pain. PROCEDURE: ??The patient exercised on a treadmill for a total of ?5 ?? minutes, ??0 ?? seconds reaching stage ??2 of the Kristopher protocol and achieving an estimated workload of ?? 7 ??METs. ?? TIGRE was ?? +12. ??Reason for termination: ??Fatigue. Target heart rate of 129. ??Baseline heart rate was ??76 ?? beats per minute and increased to ??153 ?beats per minute at peak exercise representing 100% ??of age predicted maximal heart rate. ?? Blood pressure response was normal. ? The resting blood pressure was ??132/80 ??mmHg. ??Peak blood pressure 154/80 mmHg. ?? The patient ??did not ??have chest pain/symptoms during the procedure. ?? A one day sestamibi protocol was performed with an injection of ?? 9.8 ?? mCi of Tc99m sestamibi at rest; SPECT rest images were obtained ?? 75 ?minutes post dose. ?? At 110 minutes post rest, a stress injection of ?? 32 ?mCi of Tc99m sestamibi were administered and ??145 ?? minutes later gated SPECT stress images were obtained. Baseline EKG shows normal sinus rhythm. No ST T wave segment changes. During exercise and recovery there were no ST segment changes of significance seen. There were no arrhythmias. FINDINGS: Ejection fraction greater than 75% with all myocardial segments appearing to be hyperdynamic with normal wall motion. Post stress perfusion images show normal uniform myocardial tracer uptake. On rest images there is no reversibility. IMPRESSION: Normal exercise Cardiolite nuclear perfusion study. Johanna Gary MD* AM/rxdrs DD: ??01/21/2016 17:39:26 DT: ??01/22/2016 14:31:26 Voice Rec ID #[id number] Original Voice Rec ID #[id number] Doc ID #[id number] Rev. #0 cc: ?? Johanna Gary MD* Davis Foote M.D.* Joy Skinner APRN DO NOT TEXT EDIT THIS LINE :[id number]: Authenticated by JOHANNA GARY M.D. On 01/23/2016 03:20:59 PM Procedure Note Interface, See Report - 01/23/2016 [facility] [address] [place] [id number] NUCLEAR MEDICINE STUDY PATIENT NAME: ANTOLIN FLEMING VISIT NUMBER: [id number] DATE OF PROCEDURE: 01/17/2016 : 1945 SEX: F AGE: 70Y HT: WT: ORDERING PROVIDER: Lin Skinner APRN PRIMARY CARE PHYSICIAN: Davis Foote MD READING PHYSICIAN: Johanna Gayr MD TYPE OF STUDY: Myocardial perfusion imaging with sestamibi SPECT at restand after exercise with gated SPECT. HISTORY: A 70 year old female with obstructive sleep apnea,hypertension, dyspnea and chest pain. BMI 27. INDICATION: Chest pain. PROCEDURE: The patient exercised on a treadmill for a total of 5minutes, 0 seconds reaching stage 2 of the Kristopher protocol and achieving an estimated workload of 7 METs. TIGRE was +12. Reason for termination: Fatigue. Target heart rate of 129. Baseline heart rate was 76 beats per minuteand increased to 153 beats per minute at peak exercise representing 100%of age predicted maximal heart rate. Blood pressure response was normal. The resting blood pressure was 132/80 mmHg. Peak blood pressure 154/80 mmHg. The patient did not have chest pain/symptoms during the procedure. A one day sestamibi protocol was performed with an injection of 9.8mCi of Tc99m sestamibi at rest; SPECT rest images were obtained 75 minutespost dose. At 110 minutes post rest, a stress injection of 32 mCi unRb74p sestamibi were administered and 145 minutes later gated SPECT stressimages were obtained. Baseline EKG shows normal sinus rhythm. No ST T wave segment changes.During exercise and recovery there were no ST segment changes of significanceseen. There were no arrhythmias. FINDINGS: Ejection fraction greater than 75% with all myocardialsegments appearing to be hyperdynamic with normal wall motion. Post stressperfusion images show normal uniform myocardial tracer uptake. On rest images thereis no reversibility. IMPRESSION: Normal exercise Cardiolite nuclear perfusion study. Johanna Gary MD* AM/rxdrs Voice Rec ID #[id number] Original Voice Rec ID #[id number] Doc ID #[id number] Rev. #0 cc: Johanna Gary MD* Davis Foote M.D.* Joy Skinner APRN DO NOT TEXT EDIT THIS LINE :[id number]: Authenticated by JOHANNA GARY M.D. On 01/23/2016 03:20:59 PM us See Report Interface [facility] ORDERAB LES Final Result * SCANNED - CARDIOLOGY (01/17/2016) Anatomical Region Laterality Modality Other us [facility] [employer] [facility] ORDERABLE S Final Result documented in this encounter Visit Diagnoses Not on filedocumented in this encounter Care Teams Wood Heel Finisher Relationship Specialty Start Date End Date Davis Foote MD [address] [place] [address] [place] [address] PCP - General 09/18/15 07/21/22 documented as of this encounter
--- OUTSIDE RECORDS SUMMARY | 2024-10-02 13:13 | XMS_ITS | Encounter Summary ---
Author Organization [facility] Address [address] [place] [address] Care Team Providers Care Inventory Management Specialist Name Role Phone Unavailable Primary Care Provider Unavailabl e Encounter Details Date Type Department Care Team (Late st Contact Info) Description 07/25/2014 Office Visit Converted [facility] CARDIOLOGY [address] [place] [phone] Abebe Diego MD [address] [facility] [address] [place] [address] Social History Tobacco Use Types Packs/Day Years Used Date Smoking Tobacco: Never Assessed Comments Unknown Sex and Gender Information Value Date Recorded Sex Assigned at Not on file Legal Sex Female 10:27 AM EDT Gender Identity Not on file Sexual Orientation Not on file documented as of this encounter Progress Notes * Abebe Diego MD - 07/25/2014 3:15 PM EDT LOCATION: [facility] PRIMARY CARE PHYSICIAN: Davis Foote MD IDENTIFICATION: A 68-year-old, white female from [place], [place]. PROBLEM LIST: 1. Cardiomyopathy. a. Initial diagnosis, 1996 with subsequent recovery. Recurrence with diagnosis of Tako-Tsubo syndrome in 2007 at the [facility]. 2. Coronary artery disease. a. August 1997, cardiac catheterization with normal coronary arteries. Normal EF. Cardiac catheterization, June 2008 with no significant coronary artery disease. Ejection fractionat that time 20%. January 2009, echocardiogram with ejection fraction of 55 +/- 5%. 3. Recurrent palpitations/tachy arrhythmias. a. Normal Holter, October 2011. Event recorder shows atrial tachycardia at 145 beats per minute, which is symptomatic. 4. Peptic ulcer disease. Hiatal hernia. Irritable bowel syndrome Obstructive sleep apnea with CPAP machine. Hypertension. Nephrolithiasis. Surgeries. a. Breast lumpectomies extracted and benign. Hysterectomy. Bilateral cataract extraction with lens implantation. Right breast resection. ALLERGIES/DRUG INTOLERANCES: 1. PENICILLIN, unknown reaction. 2. SULFA, unknown reaction. PHENERGAN, unknown reaction. SUDAFED, unknown reaction. STATINS, myalgias. CURRENT MEDICATIONS: 1. Aspirin 81 mg daily. 2. Lisinopril 10 mg daily. Omeprazole 40 mg daily. Spironolactone 25 mg daily. Metoprolol 12.5 mg b.i.d. HISTORY: Patient returns today for followup for her recurrent tachypalpitations. Since last visit she has had 2 further episodes of abrupt onset tachypalpitations associated with being a little dizzyand short of breath, lasting approximately 45 minutes. One in March resolved at home with vagal maneuv ers. The 1 last week lasted much longer and she went to the emergency room where she had partial relief before she got there. Patient was treated with Cardizem with resolution. She returns today for further evaluation of this. In between these episodes she feels ???okay?? , just simply fatigued. Noexertional chest pain or dyspnea. PHYSICAL EXAM: VITAL SIGNS: Blood pressure 124/74. Pulse 72. Weight 173 pounds. NECK: No JVD. Normal carotids without bruits. LUNGS: Clear. CARDIOVASCULAR: Normal S1, S2, no murmur or gallop. ABDOMEN: Benign. EXTREMITIES: No edema, 2+ pedal pulses. IMPRESSION: 1. Atrial tachycardia with recurrent tachypalpitations. Coronary artery disease, mild, asymptomatic. Nonischemic cardiomyopathy/ Tako-Tsubo cardiomyopathy. Currently well-controlled on beta gail. RECOMMENDATIONS: 1. Long discussion regarding treatment options. Her events seem to be more frequent and occurring more often. At this time we will start her on low-dose Cardizem LA 120 mg daily (she will not tolerate further doses of beta blockade due to fatigue). We will also have her follow up to see Dr. Mauricio for possible evaluation of electrophysiology study/ablative procedure. Abebe Diego MD, [facility] AM/rxdd cc: Davis Foote MD [facility] Electronically signed by:Abebe Diego MD Aug 07 2014 3:31PM EST Author documented in this encounter Plan of Treatment Upcoming Encounters Date Type Department Care Team (Late st Contact Info) Description 12/22/2024 9:50 AM EST Office Visit [facility]OP[facility]TS MEDICINE [address] [facility] [address] [place] [phone] Go Zazueta MD [address] [facility] [address] [place] [address] 01/15/2025 9:45 AM EDT Office Visit [facility] C[facility] [address] [facility] [address] [place] [address] Joy Skinner APRN [address] [facility] [address] [place] [address] documented as of this encounter Visit Diagnoses Not on filedocumented in this encounter
--- OUTSIDE RECORDS SUMMARY | 2024-10-02 13:13 | XMS_ITS | Encounter Summary ---
Author Organization [facility] Address [address] [place] [address] Care Team Providers Care Football Scout Name Role Phone Unavailable Primary Care Provider Unavailabl e Encounter Details Date Type Department Care Team (Late st Contact Info) Description 12/10/2014 Office Visit Converted [facility] [address] [facility] [address] [place] [address] Abebe Diego MD [address] [facility] [address] [place] [address] Social History Tobacco Use Types Packs/Day Years Used Date Smoking Tobacco: Never Assessed Comments Unknown Sex and Gender Information Value Date Recorded Sex Assigned at Not on file Legal Sex Female 10:27 AM EDT Gender Identity Not on file Sexual Orientation Not on file documented as of this encounter Progress Notes * Abebe Diego MD - 12/10/2014 11:45 AM EST LOCATION: [place], Located Within [facility] PRIMARY CARE PHYSICIAN: Davis Foote MD INDUSTRIAL SPECIALIST: Jean Claude Mauricio MD IDENTIFICATION: A 69-year-old, white female from [place], [place]. PROBLEM LIST: 1. Cardiomyopathy. a. Initial diagnosis, 1996, with subsequent recovery. Recurrence with diagnosis of Tako-Tsubo syndrome, 2007, at the [facility]. 2. Coronary artery disease. a. August [...] mg daily. Aspirin 81 mg daily. Metoprolol 25 mg b.i.d. Azithromycin 250 mg x5 days. Methylprednisolone 4 mg x1 week. BRIEF HISTORY: Patient returns today for annual followup of her takotsubo cardiomyopathy, mild CAD and tachypalpitations. At her last check, she had what looked like to be an atrial tachycardia/supraventricular tachycardia which she was started on low dose calcium and a channel gail and referredto Dr. Mauricio. Since that time, her calcium channel has been discontinued due to fatigue and hypotension with this. She has seen Dr. Mauricio who has recommended EP study and ablation and she is thinking about it . She had questions regarding the EP study, in the nature of what potential findings and therapies could be delivered at that time. She notes continued palpitations occurring sporadically with the exception of rapid heart rates, but she has no dyspnea or chest pain with this. She notes these symptoms are becoming slightly more frequent and lasting longer, and her recovery time (extreme fatigue afterwards) is increasing as well. No exertional component. No orthopnea, PND, or peripheral edema. PHYSICAL EXAMINATION: VITAL SIGNS: Blood pressure 150/90. Pulse 61, weight 173. NECK: No JVD. Normal carotids without bruits. LUNGS: Clear. CARDIOVASCULAR: Normal S1, S2. No murmurs or gallops. ABDOMEN: Benign. EXTREMITIES: There is 1+ bilateral pedal edema, 2+ pedal pulses. IMPRESSION: 1. History of cardiomyopathy, nonischemic, currently well-controlled and asymptomatic. High blood pressure, first high reading in several years today. This is likely due to the recent steroids for her upper respiratory illness. Atrial/supraventricular tachycardia, symptomatic. RECOMMENDATIONS: 1. Regarding her blood pressure we will simply follow for now. When she is off the prednisone we will have her recheck her blood pressure through her primary physician 2-3 weeks later. Assuming her blood pressure comes back normal no further therapy needs at this time. Much again discussed electrophysiology ablation procedure, I think she will obviously feel better, she does understand this is a nonlethal condition and as such she is still thinking about the procedure, but she is certainly leaning towards doing it. She is to contact our office when she wishes to schedule this procedure. No change in current medications today, and revisit annually or p.r.n. symptom change. Abebe Diego MD, [facility] AM/rxckg cc: Davis Foote MD [facility] Electronically signed by:Abebe Diego MD Dec 14 2014 10:47AM EST Author documented in this encounter Plan of Treatment Upcoming Encounters Date Type Department Care Team (Late st Contact Info) Description 12/22/2024 9:50 AM EST Office Visit [facility] [address] [facility] [address] [place] [address] Go Zazueta MD [address] [facility] [address] [place] [address] 01/15/2025 9:45 AM EDT Office Visit [facility] [address] [facility] [address] [place] [address] Joy Skinner APRN [address] [facility] [address] [place] [address] documented as of this encounter Visit Diagnoses Not on filedocumented in this encounter
--- NOTE | 2024-10-02 14:36 | CA_ITS ---
APPROVED REPORT EXAM: Comprehensive 2D, Doppler, and color-flow Echocardiogram Veneer Department Manager: Zoraida Maloney RT(R) Ht: 5 ft 6 in Wt: 170lbs BSA: 1.87 BP: 162/83 mmHg Indications: CP, SVT, palpitations, HTN, SOB 2D Dimensions Left Atrium 3.66 cm LVEF (Bush's) 54.50 % LVOT 1.91 cm (M/F) 1.5-2.5 LV Volume 95.20 mL LA Volume 42.60 mL LA Volume Index 22.80 mL/m2 (M/F) 16-34 EF AP4 66.40 % EF AP2 45.2 % EF BP 54.5 % GL Strain -16.0 % M-Mode Dimensions RVDd 2.05 cm (0.9-2.6) LVDd 4.85 cm (3.5-5.7) Ao Diam 2.36 cm (2.0-3.7) LVDs 3.56 cm (3.5-5.7) IVSd 1.06 cm (0.6-1.1) PWd 0.87 cm (0.6-1.1) EF (Teich) 51.90% FS 26.60% EDV (Teich) 110.20 mL ESV (Teich) 53.00 mL LV Diastology E Decel Time 189 (160-240 msec) E/A Ratio 0.89 MED E' 8.2 (>= 7 cm/sec) E'/MED E' Ratio 12.95 (<= 14) LAT E' 8.4 (>= 10 cm/sec) E/LAT E' Ratio 12.64 (<= 14) Mitral Valve MV E Max Lisandro. 106.0 (40-130 cm/s) MV A Velocity 120.0 (40-130 cm/s) E/A Ratio 0.89 MV Decel. Time 189 (160-240 ms) Left Ventricle The left ventricle is normal size. The left ventricular systolic function is normal. The left ventricular ejection fraction is within the normal range. There is increased LV wall thickness. There is normal LV segmental wall motion. The left ventricular diastolic function is normal. LVEF is 55%. Right Ventricle The right ventricle is normal size. The right ventricular systolic function is normal. Atria The left atrium is mildly dilated. The right atrium size is normal. There is no Doppler evidence of interatrial shunt. Aortic Valve Aortic valve is mildly thickened. There is no aortic valvular stenosis. Trace aortic regurgitation. Mitral Valve The mitral valve leaflets are mildly thickened. No evidence of mitral valve stenosis. Mild to moderate mitral regurgitation. The MR jet may be underestimated due to eccentric jet. Tricuspid Valve The tricuspid valve leaflets are thin and pliable. Trace tricuspid regurgitation. There is insufficient TR jet to estimate RVSP. Pulmonic Valve The pulmonary valve is normal in structure. Mild pulmonic regurgitation. Great Vessels The aortic root is normal in size. The ascending aorta is normal in size. IVC is normal in size and collapses >50% with inspiration. Pericardium There is no pericardial effusion. Other Information Study Quality: Fair Conclusion Normal biventricular systolic function. No regional wall motion abnormalities are noted. Mild to moderate MR. MR jet may be underestimated due to eccentric jet. Mild PI. Electronically signed by : Priscilla Tejeda MD 10/02/2024 11:53:18
--- NOTE | 2024-10-02 15:18 | PC.NURSE ---
patient no tgoing home on a statin for cholesterol r/t allergy of myalgias. patient will discuss plan with cardiology at follow up for the plan r/t cholesterol coverage.
--- NOTE | 2024-10-03 10:13 | SW/DCPLANNER ---
Spoke with patient and she said she is doing good but just a little sore. Patient stated that she is aware of her appointments and that she would rather see Dr. Newton when she goes to see DR cornell. Patient stated that her is going to get her medicine from the pharmacy. Chad Herzog
== END 2024-10-02 16:01 | disposition home or self-care (01) | DRG 322 ==
LOC: ER 09-30 02:09 → 2ND 09-30 09:28
PROVIDERS: Internal Medicine; Internal Medicine Adolescent Medicine; Admitting Provider Student in an Organized Health Care Education/Training Program; Emergency Provider Student in an Organized Health Care Education/Training Program; PCP Family Medicine; Visit Provider Student in an Organized Health Care Education/Training Program
PROC: 027034Z Dilation of Coronary Artery, One Artery with Drug-eluting Intraluminal Device, Percutaneous Approach (ICD-10-PCS; principal; 2024-10-02 12:00)
DX: I21.4 Non-ST elevation (NSTEMI) myocardial infarction (principal); I10 Essential (primary) hypertension; K21.9 Gastro-esophageal reflux disease without esophagitis; J45.909 Unspecified asthma, uncomplicated; F41.9 Anxiety disorder, unspecified; I25.10 Atherosclerotic heart disease of native coronary artery without angina pectoris; M17.0 Bilateral primary osteoarthritis of knee; E78.2 Mixed hyperlipidemia
CPT/HCPCS: 36415; 71045; 71275; 80048; 80053; 80061; 83735; 83880; 84443; 84484; 85007; 85025; 85347; 85378; 85730; 86803; 87389; 87636; 92928; 93005; 93306; 93458; 99152; 99291; C1725; C1769; C1874; C9600; J1200; J1644; J1650; J1920; J2250; J2270; J3010; J7120; Q9967

== ENCOUNTER 2024-10-11 13:25 | Outpatient (CLI) | payer MEDICARE, SELFPAY ==
[2024-10-11 14:09] LABS: Hematocrit 37.7 % (37.0-47.0)
[2024-10-11 14:44] LABS: Anion Gap 11.6 mEq/L (5-15); Blood Urea Nitrogen 16 mg/dl (7-17); Calcium 9.8 mg/dl (8.4-10.2); Carbon Dioxide 26 mmol/L (22.0-30.0); Chloride 101 mmol/L (98-107); Estimated Glomerular Filt Rate 70 ml/min (>60); GFR (African American) 84 ML/MIN (>60); Glucose 139 mg/dl (74-100); Potassium 3.6 mmoL/L (3.5-5.1); Sodium 135 mmol/L (136-145)
== END 2024-10-11 23:59 | disposition home or self-care (01) ==
LOC: LAB 13:25
PROVIDERS: PCP Family Medicine; Visit Provider Internal Medicine
DX: I21.4 Non-ST elevation (NSTEMI) myocardial infarction (principal); D64.9 Anemia, unspecified
CPT/HCPCS: 80048; 85014; 85018

== ENCOUNTER 2024-11-14 09:52 | Outpatient (RCR) | payer MEDICARE, SELFPAY | END 2025-01-03 11:00 | disposition home or self-care (01) | LOC: CR 09:52 | PROVIDERS: Visit Provider Physician Assistant | DX: I25.10 Atherosclerotic heart disease of native coronary artery without angina pectoris (principal); I34.0 Nonrheumatic mitral (valve) insufficiency ==